=== PATIENT | female | born 1935 | race Caucasian/White ===

== ENCOUNTER 2016-09-22 17:05 | Inpatient (IN) | payer OTHER ==
[~2016-09-22] VITALS: Ht 170.2 cm; Wt 74.0 kg
[~2016-09-22 17:05] MED LIST: ACET-1256 PO; ATOR-22 PO; CALCTAB5 PO; CHOL100010 PO; CRG125 PO; CYAN100048 PO; DOCU-94 PO; GLC5 PO; LEVO150T9 PO; LISI-461 PO; MISCTAB78 PO; MULTTAB PO; NRN/300 PO; OMEG10007 PO
[2016-09-22] MEDS ORDERED: ONDANSETRON INJ 2 MG/ML 2 ML VIAL IV STA (17:33)
--- NOTE | 2016-09-22 17:39 | EMERGENCY ROOM VISIT NOTE ---
History Report prepared by Sima: Brandon Arias Under the Supervision of: Dr. Dillon Knox M.D. First contact with patient: 17:21 Chief Complaint: BACK PAIN Stated Complaint: BACK PAIN History of Present Illness The patient is an 81 year old female who presents to the Emergency Room with complaints of constant lower right back pain beginning just prior to arrival. She currently rates her discomfort as an 8/10 in severity. The patient associates back pain that radiates to her right leg with today's symptoms. She states she got out of the car today, and the sun was blinding which caused her to feel dizzy. The patient then went to sit down at a picnic table and hit her back off of the table, when she tried to sit down. She notes she has a history of a kyphoplasty performed by the [facility] office. The patient states she takes Aspirin Back and Body for her back pain regularly. Pt denies LOC, headache, fevers, chills, diaphoresis, visual changes, neck pain, chest pain, breathing difficulties, nausea, vomiting, abdominal pain, melena, hematochezia, urinary symptoms, numbness, weakness, lymphadenopathy, rash, or other complaints. Source of History: patient Onset: just prior to arrival Position: back (lower) Symptom Intensity: 8/10 Timing: constant Associated Symptoms: + back pain Note: Associated symptoms: back pain that radiates to right leg. Review of Systems See HPI for pertinent positives and negatives. A total of ten systems were reviewed and were otherwise negative. Past Medical & Surgical Medical Problems: (1) Degenerative lumbar spinal stenosis (2) Diabetes (3) Diverticulitis (4) GERD (gastroesophageal reflux disease) (5) Heart disease (6) Hypertension Surgical Problems: (1) History of cholecystectomy (2) History of hysterectomy (3) S/P kyphoplasty Family History FHx: diabetes Social History Smoking Status: Never Smoker Alcohol Use: none Drug Use: none Marital Status: Housing Status: lives with family Occupation Status: retired Current/Historical Medications Scheduled Atorvastatin (Lipitor), 20 MG PO QPM Calcium (Caltrate), 600 MG PO DAILY Carvedilol (Carvedilol), 12.5 MG PO BID Cholecalciferol (Vitamin D), 2,000 INTER.UNIT PO DAILY Cyanocobalamin (Vitamin B-12), 1,000 MCG PO QAM Docusate Sodium (Colace), 1 CAP PO BID Gabapentin (Neurontin), 600 MG PO QAM Glipizide (Glipizide), 5 MG PO QAM Levothyroxine Sodium (Levothyroxine Sodium), 150 MCG PO QAM Lisinopril (Lisinopril), 10 MG PO QD Misc Natural Products (Osteo Bi-Flex Advanced Do), 1 TAB PO QAM Multivitamins/Minerals (Mvi With Minerals), 1 TAB PO QAM [eye pills], 1 TAB PO DAILY Scheduled PRN Acetaminophen (Tylenol), 1,000 MG PO TID PRN for Pain Allergies Coded Allergies: Celecoxib (Verified Allergy, Severe, SX OF STROKE, FACIAL NUMBNESS, UNABLE TO SPEAK, 09/22/16) Tolerates aleve and aspirin Metronidazole (Verified Adverse Reaction, Mild, N/V, 09/22/16) Ciprofloxacin (Verified Adverse Reaction, Unknown, UPSET STOMACH, 09/22/16) Physical Exam Vital Signs Date Time Temp Pulse Resp B/P Pulse Ox O2 Delivery O2 Flow Rate FiO2 09/22/16 22:05 69 96 09/22/16 22:00 68 96 09/22/16 21:59 138/71 09/22/16 21:55 69 96 09/22/16 21:50 68 96 09/22/16 21:45 69 95 09/22/16 21:40 70 96 09/22/16 21:35 72 96 09/22/16 21:30 71 95 09/22/16 21:28 144/88 09/22/16 21:25 71 95 09/22/16 21:20 73 96 09/22/16 21:15 147/80 09/22/16 21:05 73 93 09/22/16 20:35 71 95 09/22/16 20:24 73 09/22/16 19:59 149/82 09/22/16 19:36 84 104/58 93 Nasal Cannula 3.0 09/22/16 17:09 37.0 70 18 144/73 97 Room Air Physical Exam GENERAL: Awake, alert, very uncomfortable-appearing. HENT: Normocephalic, atraumatic. Oropharynx unremarkable. EYES: Normal conjunctiva. Sclera non-icteric. NECK: Supple. No nuchal rigidity. FROM. No JVD. RESPIRATORY: Clear to auscultation. CARDIAC: Regular rate, normal rhythm. Extremities warm and well perfused. Pulses equal. ABDOMEN: Soft, non-distended. No tenderness to palpation. No rebound or guarding. No masses. RECTAL: Deferred. MUSCULOSKELETAL: Chest examination reveals no tenderness. Lumbar midline tenderness. Right paraspinal tenderness. Some right low posterior rib tenderness. No joint edema. LOWER EXTREMITIES: Calves are equal size bilaterally and non-tender. No edema. No discoloration. NEURO: Normal sensorium. No sensory or motor deficits noted. SKIN: No rash or jaundice noted. Medical Decision & Procedures ER Provider Diagnostic Interpretation: CT: Radiology results as stated below per my review and radiologist interpretation CT SCAN OF THE LUMBAR SPINE WITHOUT IV CONTRAST CLINICAL HISTORY: Fall with back pain. COMPARISON STUDY: CT scan of lumbar spine dated 06/27/2015. TECHNIQUE: CT scan of the lumbar spine is performed from the lower thoracic spine to the sacrum. Images are reviewed in the axial, sagittal, and coronal planes. IV contrast was not administered for this examination. CT DOSE: 663.99 mGy.cm FINDINGS: The skeletal structures are osteopenic. Vertebral body height is maintained throughout the lumbar spine. There is minimal retrolisthesis of L2-L3 and L3-L4. Alignment is otherwise preserved. There is mild lumbar dextrocurvature centered at L3. Anterior and marginal osteophytes are present throughout. There is a nondistracted right transverse process fracture of L1. There is a tiny fracture from the tip of the right transverse process at L2. The remaining transverse processes and the spinous processes appear intact. Advanced facet arthropathy is noted in the lower lumbar region. There is no spondylolysis. There is a mild chronic compression deformity of T12 with evidence of previous vertebroplasty. No lytic or blastic lesions is seen. There is advanced degenerative disc space narrowing at L2-L3, L3-L4, and L4-L5. Endplate sclerosis is noted at these levels. There is likely acquired compromise the central canal from L1-L2 through L4-L5. The visualized sacrum and bony pelvis appear intact. Postoperative changes from a left hip arthroplasty are partially imaged. There is fatty atrophy of the paraspinous musculature. Advanced atherosclerotic calcification is noted in the abdominal aorta. There is no retroperitoneal lymphadenopathy. Colonic diverticulosis is partially imaged. There is a trace right pleural effusion. IMPRESSION: 1. There are acute nondistracted right transverse process fractures of L1 and L2. 2. No additional fracture is seen involving the lumbar spine. Vertebral body height is preserved. 3. Osteopenia with advanced lumbosacral spondylosis and mild scoliosis as above. 4. There is a chronic compression deformity of T12 with evidence of previous vertebroplasty. 5. Additional changes as above. Electronically signed by: Michael Scherer M.D. 09/22/2016 7:25 PM Laboratory Results 09/22/16 17:30 Red Blood Count 4.55, Mean Corpuscular Volume 96.9, Mean Corpuscular Hemoglobin 32.5, Mean Corpuscular Hemoglobin Concent 33.6, Mean Platelet Volume 10.5, Neutrophils (%) (Auto) 69.9, Lymphocytes (%) (Auto) 18.0, Monocytes (%) (Auto) 9.4, Eosinophils (%) (Auto) 2.3, Basophils (%) (Auto) 0.2, Neutrophils # (Auto) 6.74, Lymphocytes # (Auto) 1.74, Monocytes # (Auto) 0.91, Eosinophils # (Auto) 0.22, Basophils # (Auto) 0.02 09/22/16 17:30 Test 09/22/16 17:30 09/22/16 20:05 White Blood Count 9.65 K/uL (4.8-10.8) Red Blood Count 4.55 M/uL (4.2-5.4) Hemoglobin 14.8 g/dL (12.0-16.0) Hematocrit 44.1 % (37-47) Mean Corpuscular Volume 96.9 fL (80-100) Mean Corpuscular Hemoglobin 32.5 pg (25-34) Mean Corpuscular Hemoglobin Concent 33.6 g/dl (32-36) Platelet Count 191 K/uL (130-400) Mean Platelet Volume 10.5 fL (7.4-10.4) Neutrophils (%) (Auto) 69.9 % Lymphocytes (%) (Auto) 18.0 % Monocytes (%) (Auto) 9.4 % Eosinophils (%) (Auto) 2.3 % Basophils (%) (Auto) 0.2 % Neutrophils # (Auto) 6.74 K/uL (1.4-6.5) Lymphocytes # (Auto) 1.74 K/uL (1.2-3.4) Monocytes # (Auto) 0.91 K/uL (0.11-0.59) Eosinophils # (Auto) 0.22 K/uL (0-0.5) Basophils # (Auto) 0.02 K/uL (0-0.2) RDW Standard Deviation 46.7 fL (36.4-46.3) RDW Coefficient of Variation 13.2 % (11.5-14.5) Immature Granulocyte % (Auto) 0.2 % Immature Granulocyte # (Auto) 0.02 K/uL (0.00-0.02) Anion Gap 10.0 mmol/L (3-11) Est Creatinine Clear Calc Drug Dose 34.5 ml/min Estimated GFR () 43.9 Estimated GFR (Non- 37.9 BUN/Creatinine Ratio 12.9 (10-20) Calcium Level 9.5 mg/dl (8.5-10.1) Total Bilirubin 0.7 mg/dl (0.2-1) Direct Bilirubin 0.2 mg/dl (0-0.2) Aspartate Amino Transf (AST/SGOT) 28 U/L (15-37) Alanine Aminotransferase (ALT/SGPT) 22 U/L (12-78) Alkaline Phosphatase 89 U/L (45-117) Total Protein 7.6 gm/dl (6.4-8.2) Albumin 3.7 gm/dl (3.4-5.0) Lipase 496 U/L (73-393) Urine Color DK YELLOW Urine Appearance CLEAR (CLEAR) Urine pH 5.5 (4.5-7.5) Urine Specific Gully 1.017 (1.000-1.030) Urine Protein NEG (NEG) Urine Glucose (UA) NEG (NEG) Urine Ketones NEG (NEG) Urine Occult Blood NEG (NEG) Urine Nitrite NEG (NEG) Urine Bilirubin NEG (NEG) Urine Urobilinogen NEG (NEG) Urine Leukocyte Esterase NEG (NEG) Laboratory results reviewed by me Medications Administered Medications (Trade) Dose Ordered Sig/Ailin Route Start Time Stop Time Status Last Admin Dose Admin Ondansetron HCl (Zofran Inj) 4 mg NOW STAT IV 09/22/16 17:33 09/22/16 17:34 DC 09/22/16 17:44 4 MG Hydromorphone HCl (Dilaudid Inj) 0.5 mg Q15M PRN IV 09/22/16 17:45 10/06/16 17:44 09/22/16 21:18 0.5 MG ED Course 1727: The patient was evaluated in room A11B. A complete history and physical exam was performed. 1732: Ordered Zofran inj 4 mg IV. 1744: Ordered Dilaudid Inj 0.5 mg IV. 1849: Reevaluated the patient at this time, and she is doing well. 2054: Reevaluated the patient at this time and updated her on the results. 2107: Reevaluated the patient at this time, and she is still in a lot of pain. 2146: I spoke to JOLENE Grullon (Hospitalist) about the patient's case, and he will follow the patient for further evaluation. Medical Decision Triage Nursing notes reviewed. The patient's presentation and history were concerning for back pain after a direct injury. Etiologies such as fracture, contusion, lumbago, sciatica, cauda equina, epidural abscess, osteomyelitis, aortic disease, metastatic disease, infection, renal colic, gastrointestinal, as well as others were entertained. The patient was evaluated. She was tender. She is given IV Dilaudid. She was sent for imaging. CBC, urinalysis, chemistry panel, LFTs and lipase were normal. Imaging reveals acute fractures of the transverse process on the right side of L1 and L2. The patient did require additional IV Dilaudid. She was having difficulty moving secondary to pain. Because of this further evaluation and management in the hospital felt to be appropriate. Consultation was made with internal medicine. The patient was evaluated in the Emergency Room for further treatment. The chart was completed utilizing [employer] Speech voice recognition software. Grammatical errors, random word insertions, pronoun errors, and incomplete sentences are an occasional consequence of this system due to software limitations, ambient noise, and hardware issues. Any formal questions or concerns about the content, text, or information contained within the body of this dictation should be directly addressed to the physician for clarification. Consults Time Called: 2112 Consulting Physician: JOLENE Grullon (Hospitalist) Returned Call: 2146 I spoke to JOLENE Grullon (Hospitalist) about the patient's case, and he will follow the patient for further evaluation. Impression Primary Impression: Multiple transverse process fractures Scribe Attestation The scribe's documentation has been prepared under my direction and personally reviewed by me in its entirety. I confirm that the note above accurately reflects all work, treatment, procedures, and medical decision making performed by me. Departure Information Dispostion Being Evaluated By Hospitalist (Dr. Hughes, [facility] [place] (Hospitalist)) Referrals Adriano Castellanos M.D. (PCP)
[2016-09-22] MEDS: HYDROmorphone INJ 0.5 MG/0.5 ML SYR IV PRN ×2 (17:44→21:18)
[2016-09-22 17:46] LABS: BASO % 0.2 %; BASO ABS # 0.02 K/uL (0-0.2); COMPLETE YES; EOS % 2.3 %; HEMATOCRIT 44.1 % (37-47); IG% 0.2 %; LYMPH ABS # 1.74 K/uL (1.2-3.4); MEAN CELL VOLUME 96.9 fL (80-100); MEAN CORPUSCULAR HEMOGLOBIN 32.5 pg (25-34); MEAN CORPUSCULAR HGB CONC 33.6 g/dl (32-36); MEAN PLATELET VOLUME 10.5 fL (7.4-10.4); MONO % 9.4 %; NEUT % 69.9 %; PLATELET COUNT 191 K/uL (130-400); RED BLOOD COUNT 4.55 M/uL (4.2-5.4); WHITE BLOOD COUNT 9.65 K/uL (4.8-10.8)
[2016-09-22 18:05] LABS: BUN/CREATININE RATIO 12.9 (10-20); CALCIUM 9.5 mg/dl (8.5-10.1); CREATININE 1.3 mg/dl (0.60-1.20); POTASSIUM 4.1 mmol/L (3.5-5.1)
--- NOTE | 2016-09-22 19:27 | DIAGNOSTIC IMAGING REPORT ---
CT SCAN OF THE LUMBAR SPINE WITHOUT IV CONTRAST CLINICAL HISTORY: Fall with back pain. COMPARISON STUDY: CT scan of lumbar spine dated 06/27/2015. TECHNIQUE: CT scan of the lumbar spine is performed from the lower thoracic spine to the sacrum. Images are reviewed in the axial, sagittal, and coronal planes. IV contrast was not administered for this examination. CT DOSE: 663.99 mGy.cm FINDINGS: The skeletal structures are osteopenic. Vertebral body height is maintained throughout the lumbar spine. There is minimal retrolisthesis of L2-L3 and L3-L4. Alignment is otherwise preserved. There is mild lumbar dextrocurvature centered at L3. Anterior and marginal osteophytes are present throughout. There is a nondistracted right transverse process fracture of L1. There is a tiny fracture from the tip of the right transverse process at L2. The remaining transverse processes and the spinous processes appear intact. Advanced facet arthropathy is noted in the lower lumbar region. There is no spondylolysis. There is a mild chronic compression deformity of T12 with evidence of previous vertebroplasty. No lytic or blastic lesions is seen. There is advanced degenerative disc space narrowing at L2-L3, L3-L4, and L4-L5. Endplate sclerosis is noted at these levels. There is likely acquired compromise the central canal from L1-L2 through L4-L5. The visualized sacrum and bony pelvis appear intact. Postoperative changes from a left hip arthroplasty are partially imaged. There is fatty atrophy of the paraspinous musculature. Advanced atherosclerotic calcification is noted in the abdominal aorta. There is no retroperitoneal lymphadenopathy. Colonic diverticulosis is partially imaged. There is a trace right pleural effusion. IMPRESSION: 1. There are acute nondistracted right transverse process fractures of L1 and L2. 2. No additional fracture is seen involving the lumbar spine. Vertebral body height is preserved. 3. Osteopenia with advanced lumbosacral spondylosis and mild scoliosis as above. 4. There is a chronic compression deformity of T12 with evidence of previous vertebroplasty. 5. Additional changes as above. Electronically signed by: Michael Scherer M.D. 09/22/2016 7:25 PM
[2016-09-22] MEDS ORDERED: [UNRECOGNIZED DRUG - REMARK] PO (19:30)
[2016-09-22 20:26] LABS: URINE APPEARANCE CLEAR (CLEAR); URINE BILIRUBIN NEG (NEG); URINE COLOR DK YELLOW; URINE NITRITE NEG (NEG); URINE PH 5.5 (4.5-7.5); URINE SPECIFIC GRAVITY 1.017 (1.000-1.030); UROBILINOGEN NEG (NEG); ZZUR CULT IF INDIC CLEAN CATCH NO
[2016-09-22 20:27] LABS: MANUAL MICROSCOPIC REQUIRED? NO; REVIEW REQ? NO
[2016-09-22 22:50] VITALS: BP 146/81; PULSE 75; TEMP 36.5; O2SAT 95
[2016-09-22] MEDS ORDERED: ACETAMINOPHEN 500 MG TAB PO PRN (23:15)
[2016-09-22] MEDS ORDERED: ACETAMINOPHEN 325 MG TAB PO PRN (23:15)
[2016-09-22] MEDS ORDERED: ZOLPIDEM TARTRATE 5 MG TAB PO PRN (23:15)
[2016-09-22] MEDS ORDERED: ONDANSETRON INJ 2 MG/ML 2 ML VIAL IV PRN (23:15)
[2016-09-22 23:50] VITALS: Ht 170.2 cm; Wt 74.0 kg
[2016-09-23] MEDS: DEXAMETHASONE INJ 4 MG in SYRINGE 0 ML IV SCH ×5 (00:06→23:42)
[2016-09-23] MEDS: HYDROmorphone INJ 1 MG/ML SYR IV PRN ×5 (00:06→23:43)
--- NOTE | 2016-09-23 03:34 | History and Physical ---
History & Physical Date & Time of Service: Sep 23, 2016 at 03:21 Chief Complaint: Degenerative Lumbar Spinal Stenosis,Multiple Trans Primary Care Physician: Adriano Castellanos M.D. History of Present Illness Source: patient, spouse The patient is an 81-year-old female accompanied by her spouse, who presents emergency department with complaint of right lower back pain that began when she hit her lower back as she was attempting to sit down near a table prior to arrival. Past Medical/Surgical History Medical Problems: (1) Diabetes Status: Chronic (2) Diverticulitis Status: Chronic (3) GERD (gastroesophageal reflux disease) Status: Chronic (4) Heart disease Status: Chronic (5) Hypertension Status: Chronic Surgical Problems: (1) History of cholecystectomy Status: Resolved (2) History of hysterectomy Status: Resolved (3) S/P kyphoplasty Status: Resolved Family History FHx: diabetes Social History Smoking Status: Never Smoker Smokeless Tobacco Use: No Alcohol Use: none Drug Use: none Marital Status: Housing status: lives with family Occupational Status: retired Immunizations History of Influenza Vaccine: Yes Influenza Vaccine Date: Jun 28, 2007 History of Tetanus Vaccine?: Unknown History of Pneumococcal: Yes Pneumococcal Date: Aug 04, 2007 History of Hepatitis B Vaccine: Unknown Multi-Drug Resistant Organisms History of MDRO: No Allergies Coded Allergies: Celecoxib (Verified Allergy, Severe, SX OF STROKE, FACIAL NUMBNESS, UNABLE TO SPEAK, 09/22/16) Tolerates aleve and aspirin Metronidazole (Verified Adverse Reaction, Mild, N/V, 09/22/16) Ciprofloxacin (Verified Adverse Reaction, Unknown, UPSET STOMACH, 09/22/16) Home Medications Scheduled Atorvastatin (Lipitor), 20 MG PO QPM Calcium (Caltrate), 600 MG PO DAILY Carvedilol (Carvedilol), 12.5 MG PO BID Cholecalciferol (Vitamin D), 2,000 INTER.UNIT PO DAILY Cyanocobalamin (Vitamin B-12), 1,000 MCG PO QAM Docusate Sodium (Colace), 1 CAP PO BID Gabapentin (Neurontin), 600 MG PO QAM Glipizide (Glipizide), 5 MG PO QAM Levothyroxine Sodium (Levothyroxine Sodium), 150 MCG PO QAM Lisinopril (Lisinopril), 10 MG PO QD Misc Natural Products (Osteo Bi-Flex Advanced Do), 1 TAB PO QAM Multivitamins/Minerals (Mvi With Minerals), 1 TAB PO QAM [eye pills], 1 TAB PO DAILY Scheduled PRN Acetaminophen (Tylenol), 1,000 MG PO TID PRN for Pain Review of Systems The patient denies chest pain, palpitations, shortness of breath, cough, lower extremity swelling, vision change, hearing change, sore throat, fevers, chills, sweats, weight change, fatigue, nausea, vomiting, abdominal pain, pelvic pain, blood in urine or stool, dysuria, urinary frequency or urgency, lightheadedness , dizziness, headache, memory loss, rash, abnormal bruising or bleeding, imbalance, focal or generalized weakness, numbness or tingling in arms or legs, arthralgias or myalgias, neck pain, night sweats, or allergy symptoms. The review of systems is otherwise negative other than for that already noted above, and at least 10 systems have been reviewed. Physical Exam Vital Signs Date Time Temp Pulse Resp B/P Pulse Ox O2 Delivery O2 Flow Rate FiO2 09/22/16 23:50 Room Air 09/22/16 22:50 36.5 75 18 146/81 95 Room Air 09/22/16 22:35 37.0 76 18 138/71 95 09/22/16 22:20 76 95 09/22/16 22:15 73 95 09/22/16 22:10 70 96 09/22/16 22:05 69 96 09/22/16 22:00 68 96 09/22/16 21:59 138/71 09/22/16 21:55 69 96 09/22/16 21:50 68 96 09/22/16 21:45 69 95 09/22/16 21:40 70 96 09/22/16 21:35 72 96 09/22/16 21:30 71 95 09/22/16 21:28 144/88 09/22/16 21:25 71 95 09/22/16 21:20 73 96 09/22/16 21:15 147/80 09/22/16 21:05 73 93 09/22/16 20:35 71 95 09/22/16 20:24 73 09/22/16 19:59 149/82 09/22/16 19:36 84 104/58 93 Nasal Cannula 3.0 09/22/16 17:09 37.0 70 18 144/73 97 Room Air The patient is awake, well-developed and adequately nourished, alert and oriented 3, normocephalic and atraumatic, lying in bed and in no acute distress while lying still. HEENT--PERRL, EOMI, mucous membranes moist, and oropharynx normal. Neck--supple, no JVD or bruits, thyroid normal, trachea midline, no adenopathy. Heart--normal S1 and S2, no extra beats, no murmurs, rubs or gallops. Lungs--clear bilaterally with good air movement, no respiratory distress, no accessory muscle use. Abdomen--normal bowel sounds and soft, nontender and nondistended, no hernias or masses, no organomegaly. Extremities--no cyanosis, clubbing or edema. There are good distal pulses b/l. Dermatologic--normal skin turgor, normal color, warm and dry, no abnormal lymph nodes, no rash. Neurologic--cranial nerves II through XII grossly intact. Rheumatologic--reproducible pain over L1-L2 lumbar areas. Psychiatric--normal affect. Diagnostics Laboratory Results Results Past 24 Hours Test 09/22/16 17:30 09/22/16 20:05 Range/Units White Blood Count 9.65 4.8-10.8 K/uL Red Blood Count 4.55 4.2-5.4 M/uL Hemoglobin 14.8 12.0-16.0 g/dL Hematocrit 44.1 37-47 % Mean Corpuscular Volume 96.9 80-100 fL Mean Corpuscular Hemoglobin 32.5 25-34 pg Mean Corpuscular Hemoglobin Concent 33.6 32-36 g/dl Platelet Count 191 130-400 K/uL Mean Platelet Volume 10.5 7.4-10.4 fL Neutrophils (%) (Auto) 69.9 % Lymphocytes (%) (Auto) 18.0 % Monocytes (%) (Auto) 9.4 % Eosinophils (%) (Auto) 2.3 % Basophils (%) (Auto) 0.2 % Neutrophils # (Auto) 6.74 1.4-6.5 K/uL Lymphocytes # (Auto) 1.74 1.2-3.4 K/uL Monocytes # (Auto) 0.91 0.11-0.59 K/uL Eosinophils # (Auto) 0.22 0-0.5 K/uL Basophils # (Auto) 0.02 0-0.2 K/uL RDW Standard Deviation 46.7 36.4-46.3 fL RDW Coefficient of Variation 13.2 11.5-14.5 % Immature Granulocyte % (Auto) 0.2 % Immature Granulocyte # (Auto) 0.02 0.00-0.02 K/uL Sodium Level 145 136-145 mmol/L Potassium Level 4.1 3.5-5.1 mmol/L Chloride Level 106 98-107 mmol/L Carbon Dioxide Level 29 21-32 mmol/L Anion Gap 10.0 3-11 mmol/L Blood Urea Nitrogen 17 7-18 mg/dl Creatinine 1.30 0.60-1.20 mg/dl Est Creatinine Clear Calc Drug Dose 34.5 ml/min Estimated GFR () 43.9 Estimated GFR (Non- 37.9 BUN/Creatinine Ratio 12.9 10-20 Random Glucose 80 70-99 mg/dl Calcium Level 9.5 8.5-10.1 mg/dl Total Bilirubin 0.7 0.2-1 mg/dl Direct Bilirubin 0.2 0-0.2 mg/dl Aspartate Amino Transf (AST/SGOT) 28 15-37 U/L Alanine Aminotransferase (ALT/SGPT) 22 12-78 U/L Alkaline Phosphatase 89 45-117 U/L Total Protein 7.6 6.4-8.2 gm/dl Albumin 3.7 3.4-5.0 gm/dl Lipase 496 73-393 U/L Urine Color DK YELLOW Urine Appearance CLEAR CLEAR Urine pH 5.5 4.5-7.5 Urine Specific David 1.017 1.000-1.030 Urine Protein NEG NEG Urine Glucose (UA) NEG NEG Urine Ketones NEG NEG Urine Occult Blood NEG NEG Urine Nitrite NEG NEG Urine Bilirubin NEG NEG Urine Urobilinogen NEG NEG Urine Leukocyte Esterase NEG NEG Diagnostic Radiology Patient Name: OLE PATTON Unit Number: [id number] Dictated: 09/22/161917 Transcribed: 09/22/161917 EV Printed Date/Time: [~ rep prt dt]/[~ rep prt tm] [~ rep ct labl] - [~ rep ct ivnm] [facility] [place] [address] Dictated: 09/22/161917 Transcribed: 09/22/161917 EV Printed Date/Time: [~ rep prt dt]/[~ rep prt tm] [~ rep ct labl] - [~ rep ct ivnm] [~ rep ct add3]] CT SCAN OF THE LUMBAR SPINE WITHOUT IV CONTRAST CLINICAL HISTORY: Fall with back pain. COMPARISON STUDY: CT scan of lumbar spine dated 06/27/2015. TECHNIQUE: CT scan of the lumbar spine is performed from the lower thoracic spine to the sacrum. Images are reviewed in the axial, sagittal, and coronal planes. IV contrast was not administered for this examination. CT DOSE: 663.99 mGy.cm FINDINGS: The skeletal structures are osteopenic. Vertebral body height is maintained throughout the lumbar spine. There is minimal retrolisthesis of L2-L3 and L3-L4. Alignment is otherwise preserved. There is mild lumbar dextrocurvature centered at L3. Anterior and marginal osteophytes are present throughout. There is a nondistracted right transverse process fracture of L1. There is a tiny fracture from the tip of the right transverse process at L2. The remaining transverse processes and the spinous processes appear intact. Advanced facet arthropathy is noted in the lower lumbar region. There is no spondylolysis. There is a mild chronic compression deformity of T12 with evidence of previous vertebroplasty. No lytic or blastic lesions is seen. There is advanced degenerative disc space narrowing at L2-L3, L3-L4, and L4-L5. Endplate sclerosis is noted at these levels. There is likely acquired compromise the central canal from L1-L2 through L4-L5. The visualized sacrum and bony pelvis appear intact. Postoperative changes from a left hip arthroplasty are partially imaged. There is fatty atrophy of the paraspinous musculature. Advanced atherosclerotic calcification is noted in the abdominal aorta. There is no retroperitoneal lymphadenopathy. Colonic diverticulosis is partially imaged. There is a trace right pleural effusion. IMPRESSION: 1. There are acute nondistracted right transverse process fractures of L1 and L2. 2. No additional fracture is seen involving the lumbar spine. Vertebral body height is preserved. 3. Osteopenia with advanced lumbosacral spondylosis and mild scoliosis as above. 4. There is a chronic compression deformity of T12 with evidence of previous vertebroplasty. 5. Additional changes as above. Electronically signed by: Michael Scherer M.D. 09/22/2016 7:25 PM The status of this report is Signed. Draft = Not yet reviewed or approved by Radiologist. Signed = Reviewed and approved by Radiologist. <AttendingPhy></AttendingPhy> <FamilyPhy>Adriano Castellanos M.D.</FamilyPhy > <PrimaryPhy>Adrinao Castellanos M.D.</PrimaryPhy> <UnitNumber>[id number]</ UnitNumber> <VisitNumber>[id number]</VisitNumber> <PatientName>OLE PATTON</ PatientName> <DateOfBirth>1935</DateOfBirth> <Location>[facility]</Location> < ServiceDate>09/22/16</ServiceDate> <MNE>ESINDI</MNE> <OrderingPhy>Dillon Knox MD</OrderingPhy> <OrderingPhyMNE>f rep ord dr perrin</OrderingPhyMNE> < DictatingPhyMNE>f rep dict dr perrin</DictatingPhyMNE> <CCListMNE>f rep ct [place]</ CCListMNE> <AdmittingPhyMNE>f pt admit dr perrin</AdmittingPhyMNE> <AttendingPhyMNE >f pt attend dr perrin</AttendingPhyMNE> <ConsultingPhyMNE>f pt consult dr perrin</ConsultingPhyMNE> <FamilyPhyMNE>f pt fam dr perrin</FamilyPhyMNE> <OtherPhyMNE>f pt other dr perrin</OtherPhyMNE> < PrimaryPhyMNE>f pt prim care dr perrin</PrimaryPhyMNE> <ReferringPhyMNE>f pt referring dr perrin</ReferringPhyMNE> Impression Assessment and Plan L1 and L2 acute right side transverse process fractures/status post T12 vertebral plasty/multilevel lumbar facet arthropathy/multilevel lumbar spinal stenosis--the patient's pain today is likely due to the acute L1-L2 compression fractures. She'll be admitted to the medical surgical floor for pain management. She'll be started on Decadron 4 mg IV every 6 hours, and will continue the Dilaudid IV which successfully controlled her pain in the emergency department. We'll consult her orthopedic spine surgeon Dr. Moore. She does report that she's had some issues with decreased ability to control her bowels, and will therefore get Dr. Moore's opinion as to whether the spinal stenosis is the cause of these symptoms. Coronary artery disease/hypertension--continue carvedilol 12.5 mg by mouth twice a day, and lisinopril 10 mg by mouth daily. Diabetes mellitus--hold her glipizide 5 mg by mouth every morning, and place on Accu-Cheks before meals and at bedtime with NovoLog coverage. Hypercholesterolemia--continue atorvastatin 20 mg by mouth every afternoon. Hypothyroidism-- continue levothyroxine sodium at 150 g by mouth every morning. Peripheral neuropathy--continue gabapentin 600 mg by mouth every morning. Vitamin B12 deficiency--continue B12 supplement at 1000 g by mouth every morning. Level of Care Med/Surg Advanced Directives Existing Advance Directive: No Existing Living Will: No Existing Power of Remote Sensing Analyst: No Resuscitation Status FULL RESUSCITATION VTE Prophylaxis VTE Risk Assessment Done? Y/N: Yes Risk Level: High Given or contraindicated: SCD's
[2016-09-23] MEDS: LEVOTHYROXINE 150 MCG TAB PO SCH (05:08)
[2016-09-23 06:36] LABS: BASO % 0.1 %; BASO ABS # 0.01 K/uL (0-0.2); COMPLETE YES; EOS % 0.1 %; HEMATOCRIT 46.5 % (37-47); IG% 0.1 %; LYMPH % 11.7 %; LYMPH ABS # 0.85 K/uL (1.2-3.4); MEAN CELL VOLUME 98.5 fL (80-100); MEAN CORPUSCULAR HEMOGLOBIN 32.2 pg (25-34); MEAN CORPUSCULAR HGB CONC 32.7 g/dl (32-36); MEAN PLATELET VOLUME 10.9 fL (7.4-10.4); MONO % 1.2 %; NEUT % 86.8 %; PLATELET COUNT 182 K/uL (130-400); RED BLOOD COUNT 4.72 M/uL (4.2-5.4); WHITE BLOOD COUNT 7.29 K/uL (4.8-10.8)
[2016-09-23 07:05] LABS: BUN/CREATININE RATIO 13.4 (10-20); CALCIUM 9.1 mg/dl (8.5-10.1); CREATININE 1.3 mg/dl (0.60-1.20); MAGNESIUM 2.3 mg/dl (1.8-2.4); POTASSIUM 4.3 mmol/L (3.5-5.1)
[2016-09-23 07:16] VITALS: BP 109/68; PULSE 66; TEMP 36.6; O2SAT 90
[2016-09-23 07:40] VITALS: O2SAT 93
[2016-09-23] MEDS: CEROVITE ADV FORMULA TAB PO SCH (08:43)
[2016-09-23] MEDS: CHOLECALCIFEROL 1000 INTER.UNIT TAB PO SCH (08:43)
[2016-09-23] MEDS: CYANOCOBALAMIN 500 MCG TAB (VIT B-12) PO SCH (08:43)
[2016-09-23] MEDS: DOCUSATE SODIUM 100 MG CAP PO SCH ×2 (08:43→21:10)
[2016-09-23] MEDS: GABAPENTIN 300 MG CAP PO SCH (08:43)
[2016-09-23] MEDS: CARVEDILOL 12.5 MG TAB PO SCH ×2 (08:44→21:11)
[2016-09-23] MEDS: CALCIUM 600MG + VIT D 400 IU TAB PO SCH ×2 (08:44→21:11)
--- NOTE | 2016-09-23 11:59 | Hospitalist Progress Note ---
Hospitalist Progress Note Date of Service Sep 23, 2016. Subjective Pt evaluation today including: conversation w/ patient, physical exam, chart review, lab review, review of studies, review of inpatient medication list Pain: 9/10 sharp back pain PO Intake: Tolerating PO diet Voiding: incontinence (urge urinary incontinence, fecal incontinence) The patient complains of 9/10 sharp pain located over her lumbar spine and to the right paraspinal area. She states that the pain occasionally radiates down and around to her right hip. The patient has a history of urinary urge incontinence and fecal incontinence for which she constantly wears Depends. She has chronic numbness/tingling in her feet bilaterally due to her diabetes. She denies any new numbness/tingling in her legs since injuring her back. The patient complains of hoarseness in her voice that she states started when she was in the ER, where her room was very dry. She denies a sore throat. The patient denies fevers, chills, sweats, chest pain, palpitations, claudication, cough, wheezing, shortness of breath, nausea, vomiting, abdominal pain, dysuria , hematuria, urinary retention, paralysis, weakness, new numbness and tingling. Additional Comments: See HPI for pertinent positives and negatives. All other systems reviewed and negative. Objective Vital Signs Date Time Temp Pulse Resp B/P Pulse Ox O2 Delivery O2 Flow Rate FiO2 09/23/16 07:40 93 Room Air 09/23/16 07:16 36.6 66 18 109/68 90 Nasal Cannula 2.0 09/22/16 23:50 Room Air 09/22/16 22:50 36.5 75 18 146/81 95 Room Air 09/22/16 22:35 37.0 76 18 138/71 95 09/22/16 22:20 76 95 09/22/16 22:15 73 95 09/22/16 22:10 70 96 09/22/16 22:05 69 96 09/22/16 22:00 68 96 09/22/16 21:59 138/71 09/22/16 21:55 69 96 09/22/16 21:50 68 96 09/22/16 21:45 69 95 09/22/16 21:40 70 96 09/22/16 21:35 72 96 09/22/16 21:30 71 95 09/22/16 21:28 144/88 09/22/16 21:25 71 95 09/22/16 21:20 73 96 09/22/16 21:15 147/80 09/22/16 21:05 73 93 09/22/16 20:35 71 95 09/22/16 20:24 73 09/22/16 19:59 149/82 09/22/16 19:36 84 104/58 93 Nasal Cannula 3.0 09/22/16 17:09 37.0 70 18 144/73 97 Room Air Physical Exam General Appearance: WD/WN, + mild distress (appears uncomfortable and in pain) Eyes: normal inspection, PERRL, EOMI ENT: normal ENT inspection, hearing grossly normal, pharynx normal Neck: supple, no JVD, trachea midline Respiratory/Chest: lungs clear, normal breath sounds, no respiratory distress Cardiovascular: regular rate, rhythm, no gallop, no murmur Abdomen: normal bowel sounds, soft, + tenderness (suprapubic area mildy TTP without guarding) Extremities: non-tender, normal inspection, no pedal edema Neurologic/Psychiatric: alert, normal mood/affect, oriented x 3 Skin: normal color, warm/dry, no rash Laboratory Results Last 24 Hours Test 09/22/16 17:30 09/22/16 20:05 09/23/16 06:15 White Blood Count 9.65 K/uL 7.29 K/uL Red Blood Count 4.55 M/uL 4.72 M/uL Hemoglobin 14.8 g/dL 15.2 g/dL Hematocrit 44.1 % 46.5 % Mean Corpuscular Volume 96.9 fL 98.5 fL Mean Corpuscular Hemoglobin 32.5 pg 32.2 pg Mean Corpuscular Hemoglobin Concent 33.6 g/dl 32.7 g/dl Platelet Count 191 K/uL 182 K/uL Mean Platelet Volume 10.5 fL 10.9 fL Neutrophils (%) (Auto) 69.9 % 86.8 % Lymphocytes (%) (Auto) 18.0 % 11.7 % Monocytes (%) (Auto) 9.4 % 1.2 % Eosinophils (%) (Auto) 2.3 % 0.1 % Basophils (%) (Auto) 0.2 % 0.1 % Neutrophils # (Auto) 6.74 K/uL 6.32 K/uL Lymphocytes # (Auto) 1.74 K/uL 0.85 K/uL Monocytes # (Auto) 0.91 K/uL 0.09 K/uL Eosinophils # (Auto) 0.22 K/uL 0.01 K/uL Basophils # (Auto) 0.02 K/uL 0.01 K/uL RDW Standard Deviation 46.7 fL 48.2 fL RDW Coefficient of Variation 13.2 % 13.3 % Immature Granulocyte % (Auto) 0.2 % 0.1 % Immature Granulocyte # (Auto) 0.02 K/uL 0.01 K/uL Sodium Level 145 mmol/L 140 mmol/L Potassium Level 4.1 mmol/L 4.3 mmol/L Chloride Level 106 mmol/L 104 mmol/L Carbon Dioxide Level 29 mmol/L 28 mmol/L Anion Gap 10.0 mmol/L 8.0 mmol/L Blood Urea Nitrogen 17 mg/dl 17 mg/dl Creatinine 1.30 mg/dl 1.30 mg/dl Est Creatinine Clear Calc Drug Dose 34.5 ml/min 34.5 ml/min Estimated GFR () 43.9 43.9 Estimated GFR (Non- 37.9 37.9 BUN/Creatinine Ratio 12.9 13.4 Random Glucose 80 mg/dl 163 mg/dl Calcium Level 9.5 mg/dl 9.1 mg/dl Total Bilirubin 0.7 mg/dl Direct Bilirubin 0.2 mg/dl Aspartate Amino Transf (AST/SGOT) 28 U/L Alanine Aminotransferase (ALT/SGPT) 22 U/L Alkaline Phosphatase 89 U/L Total Protein 7.6 gm/dl Albumin 3.7 gm/dl Lipase 496 U/L Urine Color DK YELLOW Urine Appearance CLEAR Urine pH 5.5 Urine Specific Terry 1.017 Urine Protein NEG Urine Glucose (UA) NEG Urine Ketones NEG Urine Occult Blood NEG Urine Nitrite NEG Urine Bilirubin NEG Urine Urobilinogen NEG Urine Leukocyte Esterase NEG Magnesium Level 2.3 mg/dl Assessment and Plan 81 y/o female with a history of HTN, DM II, HLD, hypothyroidism, peripheral neuropathy, and vitamin B12 deficiency who presents to the ED on 09/22/[address] of lumbar spine showed acute fractures of L1 and L2 at the transverse process as well as advanced lumbosacral spondylosis, mild scoliosis, and a chronic compression deformity of T12. Pt. hemodynamically stable upon arrival. -Admit to med/surg for pain management and possible surgical intervention. -Decadron 4 mg IV q6h -Dilaudid 1 mg IV q2h prn pain -Ortho spine consulted, awaiting evaluation HTN--stable -Continue carvedilol 12.5 mg PO BID and lisinopril 10 mg PO qd DM II--Last HgbA1c in inpatient records checked 08/23/15, was 6.0 -Hold glipizide -Insulin sliding scale -Check BSGs q ac and qhs -Recheck HgbA1c HLD -Continue atorvastatin 20 mg PO qd Hypothyroidism -Continue Synthroid 150 mcg PO qd Peripheral neuropathy -Continue gabapentin 600 mg PO qd Vitamin B12 deficiency -Continue B12 1000 mcg PO qd DVT prophylaxis -Hold chemical prophylaxis for possible surgical intervention -ALBA morales and Femi Code Status -Level I, FULL RESUSCITATION STATUS
[2016-09-23 12:27] LABS: ESTIMATED AVERAGE GLUCOSE 120 mg/dl; HA1C FLAG Normal (Normal)
[2016-09-23] MEDS ORDERED: NURSING VERBAL MED ORDER ONE (12:30)
[2016-09-23] MEDS ORDERED: COUGH DROP (SUGAR FREE) LOZ 24 LOZ/1 BOX PO PRN (12:45)
--- NOTE | 2016-09-23 13:26 | CONSULTATION REPORT ---
DATE OF CONSULTATION: 09/23/2016 CHIEF COMPLAINT: Right-sided lumbar back pain. HISTORY OF PRESENT ILLNESS: A very pleasant 81-year-old female that states yesterday she was on her porch and managed to straight her right thoracolumbar spine against the table. She came to the Emergency Room with significant back pain. CAT scan imaging does demonstrate evidence of transverse process fractures, nondisplaced L1-2 on the right. CAT scan also demonstrates severe multilevel spondylosis, spinal stenosis, and degenerative scoliosis. At this time, she states majority of pain is in the lumbar spine on the right. This is in the proximity of her fracture. She uses a walker and a cane for ambulation. She describes significant back pain with prolonged standing. She gets leg cramps only. I am unable to elicit a history of pure neurogenic claudication. PHYSICAL EXAMINATION: She is in chair, has reasonable strength to testing, tenderness to palpation of the lumbar musculature, sensory is symmetric and intact. ASSESSMENT: 1. The transverse process fractures of L1-2. 2. Spinal stenosis throughout the lumbar spine. PLAN: At this time, any surgical intervention regarding her spinal stenosis would be quite extensive in nature. She would prefer to continue with observation only. She has had epidural injections in the past, but states it provided very little long-term relief. Regarding her acute injury of the fractures, these would improve dramatically with I am sure a few weeks of light activity and rest. Regarding her brace, she is somewhat unclear unbraceable secondary to body habitus and this may just provide more pressure directly on the fracture and less comfort. At this time, I have encouraged her to undergo physical therapy as tolerated. Discharge home when comfortable.
[2016-09-23 15:23] VITALS: BP 99/63; PULSE 65; TEMP 36.4; O2SAT 95
[2016-09-23] MEDS ORDERED: GLUCOSE 10 TABS/TUBE PO PRN (16:15)
[2016-09-23] MEDS ORDERED: GLUCAGON FOR INJ 1 MG VIAL SQ PRN (16:15)
[2016-09-23] MEDS ORDERED: GLUCOSE 40% GEL 15 GM TUBE PO PRN (16:15)
[2016-09-23] MEDS ORDERED: DEXTROSE 50% 50 ML SYR IV PRN (16:15)
[2016-09-23] MEDS: INSULIN ASPART 100 UNITS/ML 3 ML PEN SC SCH ×2 (18:42→21:10)
[2016-09-23] MEDS: ATORVASTATIN 20 MG TAB PO SCH (21:11)
[2016-09-23 23:27] VITALS: BP 125/68; PULSE 70; TEMP 36.7; O2SAT 94
[2016-09-24] MEDS: DEXAMETHASONE INJ 4 MG in SYRINGE 0 ML IV SCH ×3 (05:41→18:22)
[2016-09-24] MEDS: LEVOTHYROXINE 150 MCG TAB PO SCH (05:41)
[2016-09-24 06:55] LABS: BASO % 0.1 %; BASO ABS # 0.01 K/uL (0-0.2); COMPLETE YES; HEMATOCRIT 39.3 % (37-47); IG% 0.3 %; LYMPH % 9.5 %; LYMPH ABS # 1.26 K/uL (1.2-3.4); MEAN CELL VOLUME 96.8 fL (80-100); MEAN CORPUSCULAR HGB CONC 34.1 g/dl (32-36); MEAN PLATELET VOLUME 10.7 fL (7.4-10.4); MONO % 4.7 %; NEUT % 85.4 %; PLATELET COUNT 188 K/uL (130-400); RED BLOOD COUNT 4.06 M/uL (4.2-5.4); WHITE BLOOD COUNT 13.22 K/uL (4.8-10.8)
[2016-09-24 07:22] VITALS: BP 131/73; PULSE 70; TEMP 36.8; O2SAT 95
[2016-09-24 07:33] LABS: CREATININE 1.7 mg/dl (0.60-1.20); MAGNESIUM 2.5 mg/dl (1.8-2.4); POTASSIUM 4.4 mmol/L (3.5-5.1)
[2016-09-24] MEDS: INSULIN ASPART 100 UNITS/ML 3 ML PEN SC SCH ×4 (09:40→20:45)
[2016-09-24] MEDS: CARVEDILOL 12.5 MG TAB PO SCH ×2 (09:41→20:42)
[2016-09-24] MEDS: GABAPENTIN 300 MG CAP PO SCH (09:41)
[2016-09-24] MEDS: CYANOCOBALAMIN 500 MCG TAB (VIT B-12) PO SCH (09:41)
[2016-09-24] MEDS: CEROVITE ADV FORMULA TAB PO SCH (09:41)
[2016-09-24] MEDS: DOCUSATE SODIUM 100 MG CAP PO SCH ×2 (09:41→20:41)
[2016-09-24] MEDS: CALCIUM 600MG + VIT D 400 IU TAB PO SCH ×2 (09:42→20:41)
[2016-09-24] MEDS: CHOLECALCIFEROL 1000 INTER.UNIT TAB PO SCH (09:42)
[2016-09-24] MEDS: HYDROmorphone INJ 1 MG/ML SYR IV PRN (12:49)
[2016-09-24 15:10] VITALS: BP 114/67; PULSE 71; TEMP 36.7; O2SAT 92
[2016-09-24 15:30] VITALS: O2SAT 92
[2016-09-24] MEDS ORDERED: FENTANYL 12 MCG/HR TDSY TD SCH (15:30)
--- NOTE | 2016-09-24 15:51 | Hospitalist Progress Note ---
Hospitalist Progress Note Date of Service Sep 24, 2016. Subjective Pt evaluation today including: conversation w/ patient, physical exam, chart review, lab review, review of inpatient medication list Pain: 10/10 sharp back pain PO Intake: Tolerating PO diet Voiding: incontinence The patient complains of a 10/10 sharp pain in her lower back and right paraspinal area that radiates to her right flank. The pain is aggravated by movement and pressure. The patient states that her urinary incontinence seems to be better here in the hospital than it is at home, and she has not had any bowel movements or fecal incontinence. She still complains of hoarseness, but states that it is improved from yesterday. She has developed a mild sore throat and is taking throat lozenges. The patient denies fevers, chills, sweats , chest pain, palpitations, claudication, cough, wheezing, shortness of breath, nausea, vomiting, abdominal pain, dysuria, hematuria, urinary retention, paralysis, weakness, new numbness and tingling. Additional Comments: See HPI for pertinent positives and negatives. All other systems reviewed and negative. Objective Vital Signs Date Time Temp Pulse Resp B/P Pulse Ox O2 Delivery O2 Flow Rate FiO2 09/24/16 15:10 36.7 71 16 114/67 92 Room Air 09/24/16 07:56 Nasal Cannula 2.0 09/24/16 07:22 36.8 70 16 131/73 95 Room Air 09/23/16 23:35 Room Air 09/23/16 23:27 36.7 70 16 125/68 94 Nasal Cannula 2.0 Physical Exam General Appearance: WD/WN, + mild distress (appears uncomfortable, looks better when distracted with conversation) Eyes: normal inspection, PERRL, EOMI ENT: normal ENT inspection, hearing grossly normal, pharynx normal, + muffled/ hoarse voice (hoarse) Neck: supple, no JVD, trachea midline Respiratory/Chest: lungs clear, normal breath sounds, no respiratory distress, + decreased breath sounds Cardiovascular: regular rate, rhythm, no gallop, no murmur Abdomen: normal bowel sounds, soft, + guarding (R flank), + tenderness (R flank TTP, suprapubic area mildy TTP without guarding or rebound tenderness) Extremities: non-tender, normal inspection, no pedal edema Neurologic/Psychiatric: alert, normal mood/affect, oriented x 3 Skin: normal color, warm/dry, no rash Laboratory Results Last 24 Hours Test 09/23/16 16:30 09/23/16 20:36 09/24/16 06:00 09/24/16 07:55 Bedside Glucose 225 mg/dl 183 mg/dl 146 mg/dl White Blood Count 13.22 K/uL Red Blood Count 4.06 M/uL Hemoglobin 13.4 g/dL Hematocrit 39.3 % Mean Corpuscular Volume 96.8 fL Mean Corpuscular Hemoglobin 33.0 pg Mean Corpuscular Hemoglobin Concent 34.1 g/dl Platelet Count 188 K/uL Mean Platelet Volume 10.7 fL Neutrophils (%) (Auto) 85.4 % Lymphocytes (%) (Auto) 9.5 % Monocytes (%) (Auto) 4.7 % Eosinophils (%) (Auto) 0.0 % Basophils (%) (Auto) 0.1 % Neutrophils # (Auto) 11.29 K/uL Lymphocytes # (Auto) 1.26 K/uL Monocytes # (Auto) 0.62 K/uL Eosinophils # (Auto) 0.00 K/uL Basophils # (Auto) 0.01 K/uL RDW Standard Deviation 46.2 fL RDW Coefficient of Variation 13.0 % Immature Granulocyte % (Auto) 0.3 % Immature Granulocyte # (Auto) 0.04 K/uL Sodium Level 141 mmol/L Potassium Level 4.4 mmol/L Chloride Level 104 mmol/L Carbon Dioxide Level 26 mmol/L Anion Gap 11.0 mmol/L Blood Urea Nitrogen 37 mg/dl Creatinine 1.70 mg/dl Est Creatinine Clear Calc Drug Dose 26.4 ml/min Estimated GFR () 31.8 Estimated GFR (Non- 27.4 BUN/Creatinine Ratio 22.0 Random Glucose 166 mg/dl Calcium Level 9.0 mg/dl Magnesium Level 2.5 mg/dl Test 09/24/16 12:33 Bedside Glucose 180 mg/dl Assessment and Plan 81 y/o female with a history of HTN, DM II, HLD, hypothyroidism, peripheral neuropathy, and vitamin B12 deficiency who presents to the ED on 09/22/[address] of lumbar spine showed acute fractures of L1 and L2 at the transverse process as well as advanced lumbosacral spondylosis, mild scoliosis, and a chronic compression deformity of T12. Pt. hemodynamically stable upon arrival. -Admit to med/surg for pain management and possible surgical intervention. -Decadron 4 mg IV q6h -D/C Dilaudid and switch to PO pain control -Fentanyl patch 12 mcg TD q72h and Percocet 5/325 mg PO q6h prn breakthrough pain -Ortho spine consulted. As per Dr. Moore, corrective surgery would be very extensive, and pt wants to pursue conservative treatment at this time. Does not recommend brace now as it may actually increase pain/discomfort. Recommends light activity with rest and PT. -PT/OT Hoarseness--pt states this is improving -Continue lozenges -Consider ENT evaluation if persists HTN--stable -Continue carvedilol 12.5 mg PO BID and lisinopril 10 mg PO qd DM II--Last HgbA1c in inpatient records checked 08/23/15, was 6.0 -Hold glipizide -Insulin sliding scale -Check BSGs q ac and qhs -Recheck HgbA1c HLD -Continue atorvastatin 20 mg PO qd Hypothyroidism -Continue Synthroid 150 mcg PO qd Peripheral neuropathy -Continue gabapentin 600 mg PO qd Vitamin B12 deficiency -Continue B12 1000 mcg PO qd DVT prophylaxis -Hold chemical prophylaxis for possible surgical intervention -ALBA morales and Femi Code Status -Level I, FULL RESUSCITATION STATUS
[2016-09-24] MEDS: CHECK FENTANYL PATCH PLACEMENT SCH (16:40)
[2016-09-24 20:40] VITALS: BP 109/68; PULSE 72
[2016-09-24] MEDS: ATORVASTATIN 20 MG TAB PO SCH (20:42)
[2016-09-24] MEDS ORDERED: DOCUSATE SODIUM 100 MG CAP PO SCH (21:00)
[2016-09-24 23:00] VITALS: BP 146/77; PULSE 78; TEMP 37.1; O2SAT 94
[2016-09-25] MEDS: CHECK FENTANYL PATCH PLACEMENT SCH ×3 (00:42→15:40)
[2016-09-25] MEDS: OXYCODONE/ACETAMINOPHEN 5-325 TAB PO PRN ×5 (00:46→22:55)
[2016-09-25] MEDS: DEXAMETHASONE INJ 4 MG in SYRINGE 0 ML IV SCH ×4 (00:46→18:27)
[2016-09-25] MEDS: LEVOTHYROXINE 150 MCG TAB PO SCH (06:06)
[2016-09-25 07:10] VITALS: BP 162/87; PULSE 62; TEMP 36.7; O2SAT 91
[2016-09-25 07:11] LABS: COMPLETE YES; HEMATOCRIT 39.3 % (37-47); IG% 0.1 %; LYMPH % 9.5 %; MEAN CELL VOLUME 96.6 fL (80-100); MEAN CORPUSCULAR HEMOGLOBIN 33.4 pg (25-34); MEAN CORPUSCULAR HGB CONC 34.6 g/dl (32-36); MEAN PLATELET VOLUME 10.7 fL (7.4-10.4); NEUT % 86.4 %; PLATELET COUNT 197 K/uL (130-400); RED BLOOD COUNT 4.07 M/uL (4.2-5.4); WHITE BLOOD COUNT 13.62 K/uL (4.8-10.8)
[2016-09-25 07:36] LABS: BUN/CREATININE RATIO 28.1 (10-20); CALCIUM 9.2 mg/dl (8.5-10.1); CREATININE 1.4 mg/dl (0.60-1.20); MAGNESIUM 2.6 mg/dl (1.8-2.4); POTASSIUM 4.4 mmol/L (3.5-5.1)
[2016-09-25] MEDS: DOCUSATE SODIUM 100 MG CAP PO SCH ×2 (09:11→21:15)
[2016-09-25] MEDS: CHOLECALCIFEROL 1000 INTER.UNIT TAB PO SCH (09:11)
[2016-09-25] MEDS: CYANOCOBALAMIN 500 MCG TAB (VIT B-12) PO SCH (09:11)
[2016-09-25] MEDS: CEROVITE ADV FORMULA TAB PO SCH (09:11)
[2016-09-25] MEDS: CARVEDILOL 12.5 MG TAB PO SCH ×2 (09:11→21:15)
[2016-09-25] MEDS: GABAPENTIN 300 MG CAP PO SCH (09:12)
[2016-09-25] MEDS: INSULIN ASPART 100 UNITS/ML 3 ML PEN SC SCH ×4 (09:18→21:24)
[2016-09-25] MEDS ORDERED: NURSING VERBAL MED ORDER ONE ×2 (10:45)
[2016-09-25] MEDS ORDERED: OXYCODONE/ACETAMINOPHEN 5-325 TAB PO ONE (10:45)
--- NOTE | 2016-09-25 11:12 | Progress Note ---
Subjective Date of Service: Sep 25, 2016. Subjective Pt evaluation today including: conversation w/ patient, conversation w/ family , physical exam, chart review, lab review, review of studies, conversation w/ mergers and acquisitions consultant, review of inpatient medication list Voiding: no voiding problems Was up to the chair, but the pain in her lower back is not well controlled, reported a lot of pain, Problem List Medical Problems: (1) Fall Status: Acute (2) Laceration of left ear Status: Acute (3) Minor head injury Status: Acute (4) Multiple contusions Status: Acute (5) Multiple transverse process fractures Status: Acute (6) Scalp laceration Status: Acute Review of Systems Constitutional: No chills, No fatigue, No fever, No problem reported, No sweats , No weakness, No weight loss Eyes: No diplopia, No discharge, No eye pain, No redness, No worsening of vision ENT: No dental problems, No hearing loss, No nasal symptoms, No sore throat, No tinnitus, No trouble swallowing, No unusual epistaxis Respiratory: No cough, No dyspnea at rest, No dyspnea on exertion, No hemoptysis, No shortness of breath, No sputum, No wheezing Cardiac: No PND, No chest pain, No claudication, No edema, No orthopnea, No palpitations Abdomen: No constipation, No diarrhea, No nausea, No pain, No vomiting Musculoskeletal: + joint pain, No calf pain, No muscle pain, No swelling Female : No abnormal vaginal bleeding, No dysuria, No hematuria, No incontinence, No urinary frequency, No vaginal discharge Neurologic: No balance problems, No memory loss, No numbness/tingling, No paralysis, No vertigo, No weakness Psychiatric: No anhedonism, No anxiety, No depression symptoms, No insomnia, No substance abuse Heme: No abnormal bleeding/bruising, No clotting problems, No night sweats, No swollen lymph nodes Endo: No excessive thirst, No excessive urination, No fatigue Skin: No bleeding, No color change, No itch, No new/changing skin lesions, No rash Objective Vital Signs Date Time Temp Pulse Resp B/P Pulse Ox O2 Delivery O2 Flow Rate FiO2 09/25/16 07:10 36.7 62 21 162/87 91 Nasal Cannula 2.0 09/25/16 00:40 Nasal Cannula 2.0 09/24/16 23:00 37.1 78 18 146/77 94 Nasal Cannula 2.0 09/24/16 20:40 72 109/68 09/24/16 15:30 92 09/24/16 15:10 36.7 71 16 114/67 92 Room Air Physical Exam General Appearance: WD/WN, no apparent distress, + obese Eyes: normal inspection, PERRL, EOMI, sclerae normal ENT: normal ENT inspection, hearing grossly normal, pharynx normal Neck: supple, no adenopathy, thyroid normal, no JVD, no carotid bruits, trachea midline Respiratory/Chest: chest non-tender, lungs clear, normal breath sounds, no respiratory distress, no accessory muscle use Cardiovascular: regular rate, rhythm, no edema, no gallop, no JVD, no murmur Abdomen: normal bowel sounds, non tender, soft, no organomegaly, no pulsatile mass Extremities: normal range of motion, non-tender, normal inspection, no pedal edema, no calf tenderness, normal capillary refill, pelvis stable, + pertinent finding (lower back local tender in palpation) Neurologic/Psychiatric: shoe repairer II-XII nml as tested, no motor/sensory deficits, alert, normal mood/affect, oriented x 3 Skin: normal color, warm/dry, no rash Lymphatic: no adenopathy Laboratory Results Last 24 Hours Test 09/24/16 12:33 09/24/16 16:34 09/24/16 20:26 09/25/16 06:46 Bedside Glucose 180 mg/dl 144 mg/dl 164 mg/dl White Blood Count 13.62 K/uL Red Blood Count 4.07 M/uL Hemoglobin 13.6 g/dL Hematocrit 39.3 % Mean Corpuscular Volume 96.6 fL Mean Corpuscular Hemoglobin 33.4 pg Mean Corpuscular Hemoglobin Concent 34.6 g/dl Platelet Count 197 K/uL Mean Platelet Volume 10.7 fL Neutrophils (%) (Auto) 86.4 % Lymphocytes (%) (Auto) 9.5 % Monocytes (%) (Auto) 4.0 % Eosinophils (%) (Auto) 0.0 % Basophils (%) (Auto) 0.0 % Neutrophils # (Auto) 11.75 K/uL Lymphocytes # (Auto) 1.30 K/uL Monocytes # (Auto) 0.55 K/uL Eosinophils # (Auto) 0.00 K/uL Basophils # (Auto) 0.00 K/uL RDW Standard Deviation 46.3 fL RDW Coefficient of Variation 13.0 % Immature Granulocyte % (Auto) 0.1 % Immature Granulocyte # (Auto) 0.02 K/uL Sodium Level 144 mmol/L Potassium Level 4.4 mmol/L Chloride Level 107 mmol/L Carbon Dioxide Level 27 mmol/L Anion Gap 10.0 mmol/L Blood Urea Nitrogen 39 mg/dl Creatinine 1.40 mg/dl Est Creatinine Clear Calc Drug Dose 32.0 ml/min Estimated GFR () 40.2 Estimated GFR (Non- 34.7 BUN/Creatinine Ratio 28.1 Random Glucose 141 mg/dl Calcium Level 9.2 mg/dl Magnesium Level 2.6 mg/dl Test 09/25/16 07:12 Bedside Glucose 129 mg/dl Assessment and Plan 81 y/o female with a history of HTN, DM II, HLD, hypothyroidism, peripheral neuropathy, and vitamin B12 deficiency who presents to the ED on 09/22/[address] of lumbar spine showed acute fractures of L1 and L2 at the transverse process as well as advanced lumbosacral spondylosis, mild scoliosis, and a chronic compression deformity of T12. Pt. hemodynamically stable upon arrival. -Admit to med/surg for pain management and possible surgical intervention. -Has been on Decadron 4 mg IV q6h, will tapering -D/C Dilaudid and switch to PO pain control -Fentanyl patch 12 mcg TD q72h will continue - We'll increased Percocet 5/325 mg PO q6h prn breakthrough pain , 1 tab for pain less than 5 out of 10, 2 tab for pain more than 5 out of 10 -Ortho spine consulted. As per Dr. Moore, corrective surgery would be very extensive, and pt wants to pursue conservative treatment at this time. Does not recommend brace now as it may actually increase pain/discomfort. Recommends light activity with rest and PT. -PT/OT Hoarseness--pt states this is improving -Continue lozenges -Consider ENT evaluation if persists HTN--stable -Continue carvedilol 12.5 mg PO BID and lisinopril 10 mg PO qd DM II--Last HgbA1c in inpatient records checked 08/23/15, was 6.0 -Hold glipizide -Insulin sliding scale -Check BSGs q ac and qhs -Recheck HgbA1c HLD -Continue atorvastatin 20 mg PO qd Hypothyroidism -Continue Synthroid 150 mcg PO qd Peripheral neuropathy -Continue gabapentin 600 mg PO qd Vitamin B12 deficiency -Continue B12 1000 mcg PO qd DVT prophylaxis -Hold chemical prophylaxis for possible surgical intervention -ALBA morales and [employer] Code Status -Level I, FULL RESUSCITATION STATUS Discharge plan, talk with patient with the present of embedded case manager nurse, patient [facility], has referral, possible discharge tomorrow after better Pain control Continued [facility] stay due to: home environment unsafe for pt Discharge planning: retirement facility
[2016-09-25] MEDS: CALCIUM 600MG + VIT D 400 IU TAB PO SCH ×2 (11:18→21:14)
[2016-09-25 16:21] VITALS: BP 115/68; PULSE 70; TEMP 37; O2SAT 96
[2016-09-25] MEDS: ATORVASTATIN 20 MG TAB PO SCH (21:15)
[2016-09-25 23:22] VITALS: BP_SYST 149; BP_SYST 164; BP_DIAS 79; BP_DIAS 80; PULSE 69; TEMP 36.8; O2SAT 91
[2016-09-26] MEDS: CHECK FENTANYL PATCH PLACEMENT SCH ×2 (00:16→09:36)
[2016-09-26] MEDS: DEXAMETHASONE INJ 4 MG in SYRINGE 0 ML IV SCH ×2 (00:27→05:50)
[2016-09-26] MEDS: LEVOTHYROXINE 150 MCG TAB PO SCH (05:50)
[2016-09-26 07:42] VITALS: BP 158/83; PULSE 63; TEMP 36.7; O2SAT 93
[2016-09-26] MEDS: OXYCODONE/ACETAMINOPHEN 5-325 TAB PO PRN ×2 (08:05→13:30)
[2016-09-26] MEDS: CALCIUM 600MG + VIT D 400 IU TAB PO SCH (09:34)
[2016-09-26] MEDS: CEROVITE ADV FORMULA TAB PO SCH (09:35)
[2016-09-26] MEDS: CYANOCOBALAMIN 500 MCG TAB (VIT B-12) PO SCH (09:35)
[2016-09-26] MEDS: GABAPENTIN 300 MG CAP PO SCH (09:35)
[2016-09-26] MEDS: CHOLECALCIFEROL 1000 INTER.UNIT TAB PO SCH (09:35)
[2016-09-26] MEDS: CARVEDILOL 12.5 MG TAB PO SCH (09:35)
[2016-09-26] MEDS: DOCUSATE SODIUM 100 MG CAP PO SCH (09:35)
[2016-09-26] MEDS: INSULIN ASPART 100 UNITS/ML 3 ML PEN SC SCH ×2 (09:42→13:34)
[2016-09-26 10:06] LABS: HEMATOCRIT 43.4 % (37-47); MEAN CELL VOLUME 96.9 fL (80-100); MEAN CORPUSCULAR HGB CONC 34.1 g/dl (32-36); MEAN PLATELET VOLUME 11.1 fL (7.4-10.4); PLATELET COUNT 227 K/uL (130-400); RED BLOOD COUNT 4.48 M/uL (4.2-5.4); WHITE BLOOD COUNT 13.01 K/uL (4.8-10.8)
[2016-09-26 10:52] LABS: BLOOD UREA NITROGEN 42 mg/dl (7-18); BUN/CREATININE RATIO 28.1 (10-20); CALCIUM 9.5 mg/dl (8.5-10.1); CARBON DIOXIDE 26 mmol/L (21-32); CHLORIDE 104 mmol/L (98-107); GLUCOSE 185 mg/dl (70-99); SODIUM 140 mmol/L (136-145)
[2016-09-26] MEDS ORDERED: CPC PO (11:49)
[2016-09-26] MEDS ORDERED: PRD20 PO (11:49)
[2016-09-26] MEDS ORDERED: OXYC-57 PO (11:49)
[2016-09-26] MEDS ORDERED: DRGTP12 TD (11:49)
--- NOTE | 2016-09-26 12:13 | Discharge Instructions ---
Discharge Instructions Admission Reason for Admission: Degenerative Lumbar Spinal Stenosis,Multiple Trans Discharge Discharge Diagnosis / Problem: Multipe transverse process fractures of lumbar spine Discharge Goals Goal(s): Decrease discomfort, Improve function, Diagnostic testing, Therapeutic intervention Activity Recommendations Activity Limitations: as noted below Lifting Limitations: no more than 10 pounds Exercise/Sports Limitations: gradually increase as tolerated Shower/Bathe: no limitations Instructions / Follow-Up Instructions / Follow-Up You were admitted to the hospital due to acute fractures in your lumbar spine as shown on a lumbar spine CT scan. The fracture are located in the right transverse process of your lumbar spine, in vertebra L1 and L2. You were admitted to medical/surgical floor for pain management. You were given IV steroids to help reduce inflammation as well as IV pain medications. The spine surgeon, Dr. Moore, was consulted. Surgical intervention would require extensive surgery, so it was agreed to follow conservative treatment with pain control and physical therapy. A brace was not recommended as Dr. Moore thought that this would actually increase your pain and discomfort. He recommended you pursue physical therapy. The inpatient physical therapy team evaluated you and recommended that you go to an inpatient acute rehab facility. You have been cleared to go to [facility] for acute rehab. You may continue the fentanyl patch 12 mcg transdermal (to the skin) every 72 hours. Remove the patch after 72 hours. You may also continue Percocet ( oxycodone and acetaminophen) 5/325 mg by mouth every 6 hours as needed for pain. You may take 1 tablet for pain rating 1-5 out of 10 and 2 tablets at once for pain rating 6-10 out of 10. You have been given a 3 day supply. Further adjustments can be made to your regimen at [facility]. You received several days of IV steroids. Your steroid dose will be tapered down over the next 8 days. The IV steroids were stopped and you will start an oral steroid called Prednisone. You have been given 20 mg tablets. Please take 2 tablets by mouth twice a day for days 1 and 2. Take 2 tablets once a day for days 3 and 4. Take 1 tablet once day for days 5 and 6. For the last 2 days, take 1 tablet and cut it in half. Take 0.5 tablet once a day on days 7 and 8. One of your medications for blood pressure, lisinopril, has been held because you have had impaired kidney function. Stop that medication until you can follow up with a primary care provider and ensure your kidney function is back to normal. Stay hydrated and drink plenty of fluids to improve your kidney function. Please see a primary care provider in 1 week for follow up. Current Hospital Diet Patient's current hospital diet: Regular Diet Discharge Diet Recommended Diet: Diabetes Type 2 Diet Pending Studies Studies pending at discharge: no Laboratory Results Hemoglobin A1c Test 09/23/16 11:35 Range/Units Estimated Average Glucose 120 mg/dl Hemoglobin A1c 5.8 H 4.5-5.6 % Medical Emergencies . Who to Call and When: Medical Emergencies: If at any time you feel your situation is an emergency, please call 911 immediately. . Non-Emergent Contact Non-Emergency issues call your: Primary Care Provider Call Non-Emergent contact if: you have a fever, your pain is not controlled, your pain is worsening, your pain is concerning you, you have any medication questions . Past History Medical & Surgical History: (1) Multiple transverse process fractures (2) Degenerative lumbar spinal stenosis (3) Hypertension (4) Diabetes . "Provider Documentation" section prepared by Janelle Tompkins. VTE Core Measure Inpt VTE Proph given/why not?: SCD's
[2016-09-26 13:01] VITALS: BP 158/83; PULSE 63; TEMP 36.7; O2SAT 93
--- NOTE | 2016-09-26 14:01 | Discharge Summary ---
Discharge Summary Admission Date: Sep 22, 2016 at 22:05 Discharge Date: Sep 26, 2016 Discharge Disposition: Rehab ([facility]) Principal Diagnosis: Multiple transverse process fractures of lumbar spine Immunizations: Have You Had Influenza Vaccine: Yes Influenza Vaccine Date: Jun 28, 2007 History of Tetanus Vaccine?: Unknown History of Pneumococcal: Yes Pneumococcal Date: Aug 04, 2007 History of Hepatitis B Vaccine: Unknown Procedures: Patient Name: OLE PATTON Unit Number: [id number] Dictated: 09/22/161917 Transcribed: 09/22/161917 EV Printed Date/Time: [~ rep prt dt]/[~ rep prt tm] [~ rep ct labl] - [~ rep ct ivnm] [facility] Radiology Department [place] [id number] Dictated: 09/22/161917 Transcribed: 09/22/161917 EV Printed Date/Time: [~ rep prt dt]/[~ rep prt tm] [~ rep ct labl] - [~ rep ct ivnm] Patient: OLE PATTON Address1: [address] [place] [address] Rec: [id number] Address2: Acct ID: [id number] [facility] Zip: [place] [address] Date: 1935 Sex: F Room/Bed: Ref Phy: Adriano Castellanos M.D. SC: FRANNY Hernandez Phy: Report #: [id number] [place] Phy: Adriano Castellanos M.D. Test: LSWO Admit Phy: Concrete Pump Operator: NYLA Interpreting Phy: Michael Scherer M.D. Diagnosis: BACK PAIN Ordering Phy: Dillon Knox MD Service Date: 09/22/16 Admit Date: 09/22/16 MNE: [id number] CONF: DICTATED BY: Michael Scherer M.D.]] CC: Adriano Castellanos M.D. Maciejczyk, John F., MD Endcc: [~ rep ct add3]] CT SCAN OF THE LUMBAR SPINE WITHOUT IV CONTRAST CLINICAL HISTORY: Fall with back pain. COMPARISON STUDY: CT scan of lumbar spine dated 06/27/2015. TECHNIQUE: CT scan of the lumbar spine is performed from the lower thoracic spine to the sacrum. Images are reviewed in the axial, sagittal, and coronal planes. IV contrast was not administered for this examination. CT DOSE: 663.99 mGy.cm FINDINGS: The skeletal structures are osteopenic. Vertebral body height is maintained throughout the lumbar spine. There is minimal retrolisthesis of L2-L3 and L3-L4. Alignment is otherwise preserved. There is mild lumbar dextrocurvature centered at L3. Anterior and marginal osteophytes are present throughout. There is a nondistracted right transverse process fracture of L1. There is a tiny fracture from the tip of the right transverse process at L2. The remaining transverse processes and the spinous processes appear intact. Advanced facet arthropathy is noted in the lower lumbar region. There is no spondylolysis. There is a mild chronic compression deformity of T12 with evidence of previous vertebroplasty. No lytic or blastic lesions is seen. There is advanced degenerative disc space narrowing at L2-L3, L3-L4, and L4-L5. Endplate sclerosis is noted at these levels. There is likely acquired compromise the central canal from L1-L2 through L4-L5. The visualized sacrum and bony pelvis appear intact. Postoperative changes from a left hip arthroplasty are partially imaged. There is fatty atrophy of the paraspinous musculature. Advanced atherosclerotic calcification is noted in the abdominal aorta. There is no retroperitoneal lymphadenopathy. Colonic diverticulosis is partially imaged. There is a trace right pleural effusion. IMPRESSION: 1. There are acute nondistracted right transverse process fractures of L1 and L2. 2. No additional fracture is seen involving the lumbar spine. Vertebral body height is preserved. 3. Osteopenia with advanced lumbosacral spondylosis and mild scoliosis as above. 4. There is a chronic compression deformity of T12 with evidence of previous vertebroplasty. 5. Additional changes as above. Electronically signed by: Michael Scherer M.D. 09/22/2016 7:25 PM The status of this report is Signed. Draft = Not yet reviewed or approved by Radiologist. Signed = Reviewed and approved by Radiologist. <AttendingPhy></AttendingPhy> <FamilyPhy>Adriano Castellanos M.D.</FamilyPhy > <PrimaryPhy>Adriano Castellanos M.D.</PrimaryPhy> <UnitNumber>[id number]</ UnitNumber> <VisitNumber>[id number]</VisitNumber> <PatientName>OLE PATTON</ PatientName> <DateOfBirth>1935</DateOfBirth> <Location>[facility]</Location> < ServiceDate>09/22/16</ServiceDate> <MNE>ESINDI</MNE> <OrderingPhy>Dillon Knox MD</OrderingPhy> <OrderingPhyMNE>f rep ord dr perrin</OrderingPhyMNE> < DictatingPhyMNE>f rep dict dr perrin</DictatingPhyMNE> <CCListMNE>f rep ct mne</ CCListMNE> <AdmittingPhyMNE>f pt admit dr perrin</AdmittingPhyMNE> <AttendingPhyMNE >f pt attend dr perrin</AttendingPhyMNE> <ConsultingPhyMNE>f pt consult dr perrin</ConsultingPhyMNE> <FamilyPhyMNE>f pt fam dr perrin</FamilyPhyMNE> <OtherPhyMNE>f pt other dr perrin</OtherPhyMNE> < PrimaryPhyMNE>f pt prim care dr perrin</PrimaryPhyMNE> <ReferringPhyMNE>f pt referring dr perrin</ReferringPhyMNE> Medication Reconciliation New Medications: Fentanyl (Fentanyl) 12 Mcg Tdsy 12 MCG TD Q72H for 3 Days, #[address] 1 patch on skin, remove after 72 hours Menthol (Ricola) 24 Franchesca/1 Box Lozg 1 FRANCHESCA PO PRN PRN for SORE THROAT for 7 Days, #1 BOX Take lozenges as needed for sore throat. Oxycodone/Acetaminophen 5MG/325MG (Percocet 5MG/325MG) Tab 1-2 TAB PO Q6H PRN for Pain for 3 Days, #18 TAB Take 1 tablet for pain rating 1-5 out of 10, take 2 tablets for pain rating 6-10 out of 10. May take every 6 hours. Prednisone (Prednisone) 20 Mg Tab 20 MG PO UD for 8 Days, #15 TAB 2 tabs twice a day on days 1 & 2. 2 tabs daily on days 3 & 4. 1 tab daily on days 5 & 6. 1/2 tab daily on days 7 & 8. Continued Medications: Acetaminophen (Tylenol) 500 Mg Tab 1000 MG PO TID PRN for Pain, TAB Atorvastatin (Lipitor) 20 Mg Tab 20 MG PO QPM, TAB TAKE WITH EVENING MEAL. Calcium (Caltrate) 600 Mg Tab 600 MG PO DAILY, TAB Carvedilol (Carvedilol) 12.5 Mg Tab 12.5 MG PO BID, #60 Cholecalciferol (Vitamin D) 1,000 Inter.unit Tab 2000 INTER.UNIT PO DAILY, TAB Cyanocobalamin (Vitamin B-12) 1,000 Mcg Sub 1000 MCG PO QAM Docusate Sodium (Colace) 100 Mg Cap 1 CAP PO BID for 15 Days, #30 CAP Gabapentin (Neurontin) 300 Mg Cap 600 MG PO QAM, CAP Glipizide (Glipizide) 5 Mg Tab 5 MG PO QAM Levothyroxine Sodium (Levothyroxine Sodium) 150 Mcg Tab 150 MCG PO QAM Misc Natural Products (Osteo Bi-Flex Advanced Do) 1 Tab Tab 1 TAB PO QAM Multivitamins/Minerals (Mvi With Minerals) Tab 1 TAB PO QAM, TAB [eye pills] () 1 TAB PO DAILY Discontinued Medications: Lisinopril (Lisinopril) 10 Mg Tab 10 MG PO QD, #30 Referrals At Discharge Follow up Referrals: Orthopedics Referral - Within 2 Weeks with Nithin Moore D.O. Discharge Exam Patient reports that pain feels the same, however the Percocet does help alleviate the pain temporarily when given. Her pain is currently a 9/10 sharp pain located in her lower back and right paraspinal area with radiation to the right flank. Her voice is still hoarse, and her sore throat persists, although the lozenges help. The patient denies fevers, chills, sweats, chest pain, palpitations, claudication, cough, wheezing, shortness of breath, nausea, vomiting, abdominal pain, dysuria, hematuria, urinary retention, paralysis, weakness, new numbness and tingling. Review of Systems: Constitutional: No chills, No fever, No sweats Eyes: No diplopia, No eye pain, No worsening of vision ENT: + sore throat, No hearing loss, No tinnitus, No trouble swallowing Respiratory: No cough, No shortness of breath, No wheezing Cardiovascular: No chest pain, No claudication, No palpitations Abdomen: No nausea, No pain, No vomiting Musculoskeletal: + joint pain, No muscle pain, No swelling Genitourinary - Female: No dysuria, No hematuria, No urinary retention Neurologic: No numbness/tingling, No paralysis, No weakness Integumentary: No color change, No itch, No rash Physical Exam: General Appearance: WD/WN, no apparent distress (pt talking comfortably with me) Eyes: normal inspection, PERRL, EOMI ENT: normal ENT inspection, hearing grossly normal, pharynx normal Neck: supple, no adenopathy, no JVD, trachea midline Respiratory/Chest: lungs clear, normal breath sounds, no respiratory distress, + decreased breath sounds Cardiovascular: regular rate, rhythm, no gallop, no murmur Abdomen / GI: normal bowel sounds, soft, + tenderness (R flank TTP, suprapubic region mildly TTP), + guarding (R flank) Extremities: normal inspection, no calf tenderness, no pedal edema Neurologic/Psychiatric: alert, normal mood/affect, oriented x 3 Skin: normal color, warm/dry, no rash Hospital Course 81 y/o female with a history of HTN, DM II, HLD, hypothyroidism, peripheral neuropathy, and vitamin B12 deficiency who presents to the ED on 09/22/[address] of lumbar spine showed acute fractures of L1 and L2 at the transverse process as well as advanced lumbosacral spondylosis, mild scoliosis, and a chronic compression deformity of T12. Pt. hemodynamically stable upon arrival. -Admit to med/surg for pain management and possible surgical intervention. -Decadron 4 mg IV q6h x 3 days. D/C'd prior to discharge, will taper with oral Prednisone over 8 days: 40 mg BID x 2 days, 40 mg qd x 2 days, 20 mg qd x 2 days, 10 mg qd x 2 days, then stop. -D/C Dilaudid and switch to PO pain control -Fentanyl patch 12 mcg TD q72h and Percocet 5/325 mg PO q6h prn breakthrough pain. May take 1 Percocet tablet for pain rating 1-5, 2 tabs for pain rating 6- 10. Given 3 day supply at discharge, [facility] may adjust as necessary. -Ortho spine consulted. As per Dr. Moore, corrective surgery would be very extensive, and pt wants to pursue conservative treatment at this time. Does not recommend brace now as it may actually increase pain/discomfort. Recommends light activity with rest and PT. -PT/OT recommend acute rehab, pt. cleared for [place] Hoarseness--pt states this is improving -Continue lozenges -Consider ENT evaluation if persists HTN--stable -Continue carvedilol 12.5 mg PO BID -Hold lisinopril 10 mg PO qd due to impaired renal function. Encouraged to stay hydrated with PO fluids. Pt. will f/u with PCP regarding resolution of DAVONTE , may resume lisinopril at that time. DM II--Last HgbA1c in inpatient records checked 08/23/15, was 6.0 -Resume glipizide 5 mg PO qd at discharge -Insulin sliding scale -Check BSGs q ac and qhs -Rechecked HgbA1c, 5.8 on 09/23 HLD -Continue atorvastatin 20 mg PO qd Hypothyroidism -Continue Synthroid 150 mcg PO qd Peripheral neuropathy -Continue gabapentin 600 mg PO qd Vitamin B12 deficiency -Continue B12 1000 mcg PO qd DVT prophylaxis -Held chemical prophylaxis for possible surgical intervention -ALAB morales and Femi Code Status -Level I, FULL RESUSCITATION STATUS Total Time Spent: Greater than 30 minutes This includes examination of the patient, discharge planning, medication reconciliation, and communication with other providers. Discharge Instructions Please refer to the electronic Patient Visit Report (Discharge Instructions) for additional information.
[2016-09-27] MEDS ORDERED: FENTANYL PATCH REMOVE & WASTE SCH (15:29)
[2017-02-17] MEDS ORDERED: OXYB5TAB74 PO (12:02)
== END 2016-09-26 14:17 | DRG 552 ==
LOC: ENRESERVTM → ENRESERVDT → C.EDB 17:06 → C.MSW 22:05
PROVIDERS: ADMIT Hospitalist; ATTEND Hospitalist
DX: S32.019A Unspecified fracture of first lumbar vertebra, initial encounter for closed fracture (principal); S32.029A Unspecified fracture of second lumbar vertebra, initial encounter for closed fracture; W22.8XXA Striking against or struck by other objects, initial encounter; Y92.008 Other place in unspecified non-institutional (private) residence as the place of occurrence of the external cause; M47.817 Spondylosis without myelopathy or radiculopathy, lumbosacral region; M41.80 Other forms of scoliosis, site unspecified; M43.8X4 Other specified deforming dorsopathies, thoracic region; M48.06 Spinal stenosis, lumbar region; N28.9 Disorder of kidney and ureter, unspecified; R49.0 Dysphonia; N39.41 Urge incontinence; R15.9 Full incontinence of feces; E11.42 Type 2 diabetes mellitus with diabetic polyneuropathy; I10 Essential (primary) hypertension; I25.10 Atherosclerotic heart disease of native coronary artery without angina pectoris; E78.00 Pure hypercholesterolemia, unspecified; E78.5 Hyperlipidemia, unspecified; E03.9 Hypothyroidism, unspecified; E53.8 Deficiency of other specified B group vitamins; Z79.84 Long term (current) use of oral hypoglycemic drugs; Z79.899 Other long term (current) drug therapy

== ENCOUNTER → 2016-10-01 | Outpatient (CLI) | payer OTHER ==
[~2016-10-01] MED LIST changes: +AMOX1TAB43 PO; +CALC-393 PO; +CHOL1000 PO; +CPC PO; +DRGTP12 TD; +HYDR-4717 PO; +LPT/40 PO; +LUTE6TAB PO; -OMEG10007 PO; +OXYB5TAB74 PO; +OXYC-57 PO; +PANT40TA PO; +PRD20 PO; +[UNRECOGNIZED DRUG - REMARK] PO
== END ==
LOC: C.LABCC 16:25
PROVIDERS: ATTEND Internal Medicine
DX: R19.7 Diarrhea, unspecified (principal)

== ENCOUNTER → 2016-10-01 | Outpatient (CLI) | payer OTHER ==
[2016-10-01 08:42] LABS: BLOOD UREA NITROGEN 46 mg/dl (7-18); BUN/CREATININE RATIO 35.3 (10-20); CALCIUM 8.3 mg/dl (8.5-10.1); CARBON DIOXIDE 30 mmol/L (21-32); CHLORIDE 106 mmol/L (98-107); GLUCOSE 131 mg/dl (70-99); SODIUM 145 mmol/L (136-145)
== END ==
LOC: C.LABCC 08:06
PROVIDERS: ATTEND Internal Medicine
DX: E87.1 Hypo-osmolality and hyponatremia (principal); R19.7 Diarrhea, unspecified

== ENCOUNTER → 2016-10-08 | Outpatient (CLI) | payer OTHER ==
[2016-10-08 18:29] LABS: CHOLESTEROL/HDL RATIO 2.5; THYROID STIMULATING HORMONE 6.12 uIu/ml (0.300-4.500)
== END | disposition home or self-care (01) ==
LOC: C.LABBFT 16:42
PROVIDERS: ATTEND Internal Medicine
DX: M81.0 Age-related osteoporosis without current pathological fracture (principal); E03.9 Hypothyroidism, unspecified; E78.00 Pure hypercholesterolemia, unspecified

== ENCOUNTER → 2017-01-31 | Outpatient (CLI) | payer OTHER ==
[~2017-01-31] MED LIST changes: +DTR/5 PO; -OXYB5TAB74 PO
[2017-01-31 18:42] LABS: BLOOD UREA NITROGEN 14 mg/dl (7-18); CALCIUM 9.5 mg/dl (8.5-10.1); CARBON DIOXIDE 32 mmol/L (21-32); CHLORIDE 107 mmol/L (98-107); CHOLESTEROL 159 mg/dl (0-200); GLUCOSE 111 mg/dl (70-99); POTASSIUM 4.2 mmol/L (3.5-5.1); SODIUM 142 mmol/L (136-145)
[2017-01-31 18:53] LABS: ALB/GLOB RATIO 0.9 (0.9-2); ALKALINE PHOSPHATASE 78 U/L (45-117); ALT/SGPT 18 U/L (12-78); AST/SGOT 20 U/L (15-37); CHOLESTEROL/HDL RATIO 3.1; HDL CHOLESTEROL 51 mg/dl; LDL CHOLESTEROL CALCULATED 82 mg/dl; TRIGLYCERIDES 129 mg/dl (0-150); VERY LOW DENSITY LIPOPROT CALC 26 mg/dl
[2017-02-01 07:20] LABS: ESTIMATED AVERAGE GLUCOSE 120 mg/dl; HA1C FLAG Normal (Normal)
== END | disposition home or self-care (01) ==
LOC: C.LABBFT 11:56
PROVIDERS: ATTEND Internal Medicine
DX: E03.9 Hypothyroidism, unspecified (principal); M81.0 Age-related osteoporosis without current pathological fracture; E11.9 Type 2 diabetes mellitus without complications; N18.3 Chronic kidney disease, stage 3 (moderate); E78.00 Pure hypercholesterolemia, unspecified

== ENCOUNTER → 2017-02-03 | Outpatient (CLI) | payer OTHER ==
[2017-02-03 18:10] LABS: RATIO 6.2 mcg/mg (0-30.0)
== END | disposition home or self-care (01) ==
LOC: C.LABBFT 09:15
PROVIDERS: ATTEND Internal Medicine
DX: E11.9 Type 2 diabetes mellitus without complications (principal)

== ENCOUNTER 2017-02-17 11:23 | Inpatient (IN) | payer OTHER ==
[~2017-02-17] VITALS: Ht 170.2 cm; Wt 75.0 kg
[~2017-02-17 11:23] MED LIST changes: -AMOX1TAB43 PO; -CALC-393 PO; -CHOL1000 PO; -DTR/5 PO; -HYDR-4717 PO; -LISI-461 PO; -LPT/40 PO; -LUTE6TAB PO; -PANT40TA PO
[2017-02-17] MEDS ORDERED: LPT/40 PO (12:02)
[2017-02-17] MEDS ORDERED: HYDR-4717 PO (12:02)
[2017-02-17] MEDS ORDERED: LUTE6TAB PO (12:02)
[2017-02-17] MEDS ORDERED: LISI-461 PO (12:02)
[2017-02-17] MEDS ORDERED: DTR/5 PO (12:02)
[2017-02-17] MEDS ORDERED: CALC-393 PO (12:03)
[2017-02-17] MEDS ORDERED: CHOL1000 PO (12:03)
[2017-02-17 12:05] LABS: BASO % 0.2 %; BASO ABS # 0.02 K/uL (0-0.2); COMPLETE YES; EOS % 4.4 %; HEMATOCRIT 41.2 % (37-47); IG% 0.2 %; LYMPH % 25.6 %; MEAN CELL VOLUME 98.1 fL (80-100); MEAN CORPUSCULAR HEMOGLOBIN 31.9 pg (25-34); MEAN CORPUSCULAR HGB CONC 32.5 g/dl (32-36); MEAN PLATELET VOLUME 10.6 fL (7.4-10.4); MONO % 8.1 %; NEUT % 61.5 %; PLATELET COUNT 208 K/uL (130-400); WHITE BLOOD COUNT 8.59 K/uL (4.8-10.8)
[2017-02-17 12:15] LABS: PROTHROMBIN TIME (PATIENT) 10.8 SECONDS (9.0-12.0)
[2017-02-17 12:20] LABS: BLOOD UREA NITROGEN 16 mg/dl (7-18); BUN/CREATININE RATIO 13.2 (10-20); CALCIUM 8.7 mg/dl (8.5-10.1); CARBON DIOXIDE 31 mmol/L (21-32); CHLORIDE 111 mmol/L (98-107); GLUCOSE 111 mg/dl (70-99); SODIUM 146 mmol/L (136-145)
[2017-02-17] MEDS ORDERED: OPTIRAY 320 IV PRN (12:30)
--- NOTE | 2017-02-17 12:50 | EMERGENCY ROOM VISIT NOTE ---
History First contact with patient: 12:22 Chief Complaint: RECTAL BLEEDING Stated Complaint: RECTAL BLEEDING Nursing Triage Summary: pt reports 3 episodes of bright red blood with bowel movement today. pt reports feeling dizzy. pt reports similar episode last week "i had eaten a tomato and i am not sure if it was blood or the tomato in my bowel movement. History of Present Illness The patient is a 82 year old female who presents to the Emergency Room with complaints of bright red blood per rectum. The patient woke up this morning and went to the restroom and found bright red blood in the toilet. She denies any pain with defecation but had 3 bowel movements with just blood. She has been taking an aspirin 325mg tablet for the last week. She also states she has been have left sided abdominal pain and diarrhea for the last while. She denies any pain with bowel movements. She denies any nausea or vomiting. She did not take any of her medications this morning. Patient states that she has a history of diverticulitis for which she had surgery (hemicolectomy). She also has a history of C Diff. Review of Systems See HPI for pertinent positives and negatives. A total of ten systems were reviewed and were otherwise negative. Past Medical/Surgical History Medical Problems: (1) Degenerative lumbar spinal stenosis (2) Diabetes (3) Diverticulitis (4) GERD (gastroesophageal reflux disease) (5) Heart disease (6) Hypertension Surgical Problems: (1) History of cholecystectomy (2) History of hysterectomy (3) S/P kyphoplasty Family History FHx: diabetes Social History Smoking Status: Never Smoker Alcohol Use: none Drug Use: none Marital Status: Housing Status: lives with family Occupation Status: retired Current/Historical Medications Scheduled Atorvastatin (Lipitor), 40 MG PO DAILY Calcium Carbonate (Calcium), 600 MG PO DAILY Carvedilol (Carvedilol), 12.5 MG PO BID Cholecalciferol (Vitamin D3), 1 TAB PO DAILY Cyanocobalamin (Vitamin B-12), 1,000 MCG PO QAM Docusate Sodium (Colace), 1 CAP PO BID Fentanyl (Fentanyl), 12 MCG TD Q72H Gabapentin (Neurontin), 300 MG PO TID Glipizide (Glipizide), 5 MG PO QAM Hydralazine Hcl (Apresoline), 25 MG PO BID Levothyroxine Sodium (Levothyroxine Sodium), 150 MCG PO QAM Lisinopril (Zestril), 10 MG PO DAILY Lutein-Zeaxanthin (Lutein W/Zeaxanthin), 1 TAB PO DAILY Misc Natural Products (Osteo Bi-Flex Advanced Do), 1 TAB PO QAM Multivitamins/Minerals (Mvi With Minerals), 1 TAB PO QAM Oxybutynin Chloride (Ditropan), 5 MG PO DAILY Scheduled PRN Acetaminophen (Tylenol), 1,000 MG PO TID PRN for Pain Allergies Coded Allergies: Celecoxib (Verified Allergy, Severe, SX OF STROKE, FACIAL NUMBNESS, UNABLE TO SPEAK, 02/17/17) Tolerates aleve and aspirin Metronidazole (Verified Adverse Reaction, Mild, N/V, 02/17/17) Ciprofloxacin (Verified Adverse Reaction, Unknown, UPSET STOMACH, 02/17/17) Physical Exam Vital Signs Date Time Temp Pulse Resp B/P Pulse Ox O2 Delivery O2 Flow Rate FiO2 02/17/17 13:30 66 18 165/91 93 Room Air 02/17/17 12:30 64 18 161/91 93 Room Air 02/17/17 12:25 65 02/17/17 11:27 36.7 71 18 161/90 96 Room Air Physical Exam GENERAL: Awake, alert, well-appearing, in no distress HENT: Normocephalic, atraumatic. EYES: Normal conjunctiva. Sclera non-icteric. NECK: Supple. No nuchal rigidity. RESPIRATORY: Clear to auscultation. CARDIAC: Regular rate, normal rhythm. Extremities warm and well perfused. Pulses equal. ABDOMEN: Soft, non-distended. LLQ tenderness to palpation. No rebound or guarding. No masses. RECTAL: No visible anal fissures. 1 external hemorrhoid visible. No gross blood or visible bleeding from rectum. MUSCULOSKELETAL: Chest examination reveals no tenderness. The back is symmetrical on inspection without obvious abnormality. There is no CVA tenderness to palpation. No joint edema. LOWER EXTREMITIES: Calves are equal size bilaterally and non-tender. No edema. No discoloration. NEURO: Normal sensorium. No sensory or motor deficits noted. SKIN: No rash or jaundice noted. Medical Decision & Procedures Laboratory Results 02/17/17 11:45 Red Blood Count 4.20, Mean Corpuscular Volume 98.1, Mean Corpuscular Hemoglobin 31.9, Mean Corpuscular Hemoglobin Concent 32.5, Mean Platelet Volume 10.6, Neutrophils (%) (Auto) 61.5, Lymphocytes (%) (Auto) 25.6, Monocytes (%) (Auto) 8.1, Eosinophils (%) (Auto) 4.4, Basophils (%) (Auto) 0.2, Neutrophils # (Auto) 5.27, Lymphocytes # (Auto) 2.20, Monocytes # (Auto) 0.70, Eosinophils # (Auto) 0.38, Basophils # (Auto) 0.02 02/17/17 11:45 Test 02/17/17 11:45 White Blood Count 8.59 K/uL (4.8-10.8) Red Blood Count 4.20 M/uL (4.2-5.4) Hemoglobin 13.4 g/dL (12.0-16.0) Hematocrit 41.2 % (37-47) Mean Corpuscular Volume 98.1 fL (80-100) Mean Corpuscular Hemoglobin 31.9 pg (25-34) Mean Corpuscular Hemoglobin Concent 32.5 g/dl (32-36) Platelet Count 208 K/uL (130-400) Mean Platelet Volume 10.6 fL (7.4-10.4) Neutrophils (%) (Auto) 61.5 % Lymphocytes (%) (Auto) 25.6 % Monocytes (%) (Auto) 8.1 % Eosinophils (%) (Auto) 4.4 % Basophils (%) (Auto) 0.2 % Neutrophils # (Auto) 5.27 K/uL (1.4-6.5) Lymphocytes # (Auto) 2.20 K/uL (1.2-3.4) Monocytes # (Auto) 0.70 K/uL (0.11-0.59) Eosinophils # (Auto) 0.38 K/uL (0-0.5) Basophils # (Auto) 0.02 K/uL (0-0.2) RDW Standard Deviation 49.6 fL (36.4-46.3) RDW Coefficient of Variation 13.9 % (11.5-14.5) Immature Granulocyte % (Auto) 0.2 % Immature Granulocyte # (Auto) 0.02 K/uL (0.00-0.02) Prothrombin Time 10.8 SECONDS (9.0-12.0) Prothromb Time International Ratio 1.0 (0.9-1.1) Anion Gap 4.0 mmol/L (3-11) Estimated GFR () 48.1 Estimated GFR (Non- 41.5 BUN/Creatinine Ratio 13.2 (10-20) Calcium Level 8.7 mg/dl (8.5-10.1) Medical Decision Patient is an 82 year old female that presents with bright red blood per rectum Differential: Diverticulitis, Diverticulosis, Clotting Abnormality, Colon Cancer , Hemorrhoids, Anal Fissure Labs ordered: CBC, BMP, PT/INR Imaging ordered: CT Abd/Pelvis with IV Contrast - CBC, PT/INR, and BMP wnl - CT shows mild nonspecific colitis or diverticulitis - Due to ongoing rectal bleeding and imaging consistent with possible colitis or diverticulitis, consult placed to [facility] to have patient admitted for inpatient treatment Impression Primary Impression: Rectal bleeding Additional Impression: Diverticulitis Departure Information Dispostion Admitted as an inpatient Condition GOOD Referrals Adriano Castellanos M.D. (PCP) Patient Instructions [facility] Problem Qualifiers Additional Impression: Diverticulitis Diverticulitis site: large intestine Diverticulitis bleeding: with bleeding Diverticulitis complication: unspecified complication status Qualified Codes : K57.33 - Diverticulitis of large intestine without perforation or abscess with bleeding
--- NOTE | 2017-02-17 13:00 | DIAGNOSTIC IMAGING REPORT ---
ABDOMEN AND PELVIS CT WITH IV CONTRAST CT DOSE: 461.95 mGy.cm HISTORY: Blood in stool, abdominal tenderness TECHNIQUE: Multiaxial CT images of the abdomen and pelvis were performed following the use of intravenous contrast. COMPARISON STUDY: Abdomen and pelvis CT 06/11/2015. FINDINGS: Mild dependent changes seen within the lungs posteriorly. Pacemaker wires are present. Trace bilateral pleural effusions have improved. Left total hip arthroplasty. A T12 vertebroplasty. Cholecystectomy. The liver, spleen, and adrenal glands are unremarkable. The kidneys enhance normally. No hydronephrosis. Multiple punctate calcifications within the pancreas. This remains unchanged. No retroperitoneal lymphadenopathy. Hysterectomy. Bladder is now well-visualized but appears unremarkable. Colonic diverticulosis. No evidence for bowel obstruction. Mild thickening and pericolonic fat stranding at the distal transverse colon and splenic flexure of the colon. IMPRESSION: 1. Mild thickening and pericolonic fat stranding at the distal transverse colon and splenic flexure of the colon. This favors a mild nonspecific colitis or diverticulitis. 2. No evidence for bowel obstruction. 3. Cholecystectomy. 4. Hysterectomy. 5. Trace bilateral pleural effusions. This has improved. Electronically signed by: Kranthi Mena M.D. 02/17/2017 12:59 PM Dictated Date/Time: 02/17/2017 12:51 PM
--- NOTE | 2017-02-17 13:59 | EMERGENCY ROOM VISIT NOTE ---
ED Visit Note First contact with patient: 11:37 Resident Physician Supervision Note: Dr. Raj Jeff was resident physician during care of patient. I separately evaluated patient and did history and exam. I discussed the case with the resident and generally agree with the findings and plan. 82 yr old pleasant female with history of partial colectomy, diverticulitis who notes some left sided abdominal discomfort over the last few days. She has been taking daily 325mg ASA for pain over the last week. Multiple large blood bowel movements this morning, including here in ED. She is not septic and at current time does not have evidence of acute anemia requiring transfusion. CT done revealing colitis. Unclear if infectious or other thus will defer abx tx to hospitalist as with her multiple bloody BMs I do not feel it is safe to discharge her home at this time without further monitoring. Diagnosis: Colitis GI Bleed Documented By: Beny Aguila MD
[2017-02-17] MEDS ORDERED: ONDANSETRON INJ 2 MG/ML 2 ML VIAL IV PRN (15:00)
[2017-02-17] MEDS ORDERED: HydrALAZINE HCL 20 MG/ML VIAL IM PRN (15:00)
[2017-02-17 16:20] VITALS: BP 126/82; PULSE 66; TEMP 36.7; O2SAT 92
[2017-02-17] MEDS: SODIUM CHLORIDE 0.9% 1000ML 1,000 ML IV SCH (16:46)
[2017-02-17] MEDS: PANTOprazole INJ 40 MG in SYRINGE 0 ML IV SCH ×2 (16:46→23:39)
--- NOTE | 2017-02-17 17:17 | History and Physical ---
History & Physical Date & Time of Service: February 17, 2017 at 17:00 Chief Complaint: Rectal Bleeding Primary Care Physician: Adriano Castellanos M.D. History of Present Illness Source: patient, family 82 year old female with a 1 day history of bright red blood per rectum Patient woke up this morning and found that she had bright red blood in her underwear. She then had 3 bowel movements this morning and they were all with only blood and no stool. The bowel movements were non painful and they were maroon in colour. Of note she had a couple similar bowel movements last week but didn't think it was anything as she ate a tomato earlier in the day. She started taking aspirin 325mg last week because she thought it was protective for her heart. She also had associated cramp left sided abdominal pain and diarrhea for a couple years. She denies any pain with bowel movements, nausea, vomiting, blood in urine, dysuria, bruising, fevers, night sweats, weight loss, fatigue, chest pain, palpitations, shortness of breath, or cough. She has a history of diverticulitis for which she had a hemicolectomy. Past Medical/Surgical History Medical Problems: (1) Diabetes Status: Chronic (2) Diverticulitis Status: Chronic (3) GERD (gastroesophageal reflux disease) Status: Chronic (4) Heart disease Status: Chronic (5) Hypertension Status: Chronic Surgical Problems: (1) History of cholecystectomy Status: Resolved (2) History of hysterectomy Status: Resolved (3) S/P kyphoplasty Status: Resolved Family History FHx: diabetes Social History Smoking Status: Never Smoker Alcohol Use: none Drug Use: none Marital Status: Housing status: lives with family Occupational Status: retired Immunizations History of Influenza Vaccine: Yes Influenza Vaccine Date: Jun 28, 2007 History of Tetanus Vaccine?: Unknown History of Pneumococcal: Yes Pneumococcal Date: Aug 04, 2007 History of Hepatitis B Vaccine: Unknown Multi-Drug Resistant Organisms History of MDRO: No Allergies Coded Allergies: Celecoxib (Verified Allergy, Severe, SX OF STROKE, FACIAL NUMBNESS, UNABLE TO SPEAK, 02/17/17) Tolerates aleve and aspirin Metronidazole (Verified Adverse Reaction, Mild, N/V, 02/17/17) Ciprofloxacin (Verified Adverse Reaction, Unknown, UPSET STOMACH, 02/17/17) Home Medications Scheduled Atorvastatin (Lipitor), 40 MG PO DAILY Calcium Carbonate (Calcium), 600 MG PO DAILY Carvedilol (Carvedilol), 12.5 MG PO BID Cholecalciferol (Vitamin D3), 1 TAB PO DAILY Cyanocobalamin (Vitamin B-12), 1,000 MCG PO QAM Docusate Sodium (Colace), 1 CAP PO BID Fentanyl (Fentanyl), 12 MCG TD Q72H Gabapentin (Neurontin), 300 MG PO TID Glipizide (Glipizide), 5 MG PO QAM Hydralazine Hcl (Apresoline), 25 MG PO BID Levothyroxine Sodium (Levothyroxine Sodium), 150 MCG PO QAM Lisinopril (Zestril), 10 MG PO DAILY Lutein-Zeaxanthin (Lutein W/Zeaxanthin), 1 TAB PO DAILY Misc Natural Products (Osteo Bi-Flex Advanced Do), 1 TAB PO QAM Multivitamins/Minerals (Mvi With Minerals), 1 TAB PO QAM Oxybutynin Chloride (Ditropan), 5 MG PO DAILY Scheduled PRN Acetaminophen (Tylenol), 1,000 MG PO TID PRN for Pain Review of Systems see HPI for ROS Physical Exam Vital Signs Date Time Temp Pulse Resp B/P Pulse Ox O2 Delivery O2 Flow Rate FiO2 02/17/17 16:03 36.7 64 17 180/83 95 02/17/17 15:49 180/83 02/17/17 15:49 Room Air 02/17/17 15:32 174/77 02/17/17 15:30 64 17 95 02/17/17 15:01 161/96 02/17/17 15:00 61 17 95 02/17/17 14:30 180/103 93 Room Air 02/17/17 13:30 66 18 165/91 93 Room Air 02/17/17 12:30 64 18 161/91 93 Room Air 02/17/17 12:25 65 02/17/17 11:27 36.7 71 18 161/90 96 Room Air General Appearance: WD/WN, no apparent distress Eyes: normal inspection, PERRL, sclerae normal Neck: no adenopathy, thyroid normal, no JVD Respiratory/Chest: chest non-tender, lungs clear, normal breath sounds Cardiovascular: regular rate, rhythm, no edema, no JVD, normal peripheral pulses Abdomen/GI: normal bowel sounds, soft, no organomegaly, + tenderness (tender in the left middle and left upper quadrant) Back: normal inspection, normal range of motion Extremities/Musculoskelatal: normal inspection, no calf tenderness, normal capillary refill Neurologic/Psych: alert, normal mood/affect, oriented x 3 Skin: normal color, warm/dry, no rash Diagnostics Laboratory Results Results Past 24 Hours Test 02/17/17 11:45 Range/Units White Blood Count 8.59 4.8-10.8 K/uL Red Blood Count 4.20 4.2-5.4 M/uL Hemoglobin 13.4 12.0-16.0 g/dL Hematocrit 41.2 37-47 % Mean Corpuscular Volume 98.1 80-100 fL Mean Corpuscular Hemoglobin 31.9 25-34 pg Mean Corpuscular Hemoglobin Concent 32.5 32-36 g/dl Platelet Count 208 130-400 K/uL Mean Platelet Volume 10.6 7.4-10.4 fL Neutrophils (%) (Auto) 61.5 % Lymphocytes (%) (Auto) 25.6 % Monocytes (%) (Auto) 8.1 % Eosinophils (%) (Auto) 4.4 % Basophils (%) (Auto) 0.2 % Neutrophils # (Auto) 5.27 1.4-6.5 K/uL Lymphocytes # (Auto) 2.20 1.2-3.4 K/uL Monocytes # (Auto) 0.70 0.11-0.59 K/uL Eosinophils # (Auto) 0.38 0-0.5 K/uL Basophils # (Auto) 0.02 0-0.2 K/uL RDW Standard Deviation 49.6 36.4-46.3 fL RDW Coefficient of Variation 13.9 11.5-14.5 % Immature Granulocyte % (Auto) 0.2 % Immature Granulocyte # (Auto) 0.02 0.00-0.02 K/uL Prothrombin Time 10.8 9.0-12.0 SECONDS Prothromb Time International Ratio 1.0 0.9-1.1 Sodium Level 146 136-145 mmol/L Potassium Level 4.0 3.5-5.1 mmol/L Chloride Level 111 98-107 mmol/L Carbon Dioxide Level 31 21-32 mmol/L Anion Gap 4.0 3-11 mmol/L Blood Urea Nitrogen 16 7-18 mg/dl Creatinine 1.20 0.60-1.20 mg/dl Estimated GFR () 48.1 Estimated GFR (Non- 41.5 BUN/Creatinine Ratio 13.2 10-20 Random Glucose 111 70-99 mg/dl Calcium Level 8.7 8.5-10.1 mg/dl Diagnostic Radiology ABDOMEN AND PELVIS CT WITH IV CONTRAST CT DOSE: 461.95 mGy.cm HISTORY: Blood in stool, abdominal tenderness TECHNIQUE: Multiaxial CT images of the abdomen and pelvis were performed following the use of intravenous contrast. COMPARISON STUDY: Abdomen and pelvis CT 06/11/2015. FINDINGS: Mild dependent changes seen within the lungs posteriorly. Pacemaker wires are present. Trace bilateral pleural effusions have improved. Left total hip arthroplasty. A T12 vertebroplasty. Cholecystectomy. The liver, spleen, and adrenal glands are unremarkable. The kidneys enhance normally. No hydronephrosis. Multiple punctate calcifications within the pancreas. This remains unchanged. No retroperitoneal lymphadenopathy. Hysterectomy. Bladder is now well-visualized but appears unremarkable. Colonic diverticulosis. No evidence for bowel obstruction. Mild thickening and pericolonic fat stranding at the distal transverse colon and splenic flexure of the colon. IMPRESSION: 1. Mild thickening and pericolonic fat stranding at the distal transverse colon and splenic flexure of the colon. This favors a mild nonspecific colitis or diverticulitis. 2. No evidence for bowel obstruction. 3. Cholecystectomy. 4. Hysterectomy. 5. Trace bilateral pleural effusions. This has improved. Impression Assessment and Plan 82 year old female with a history of hemicolectomy (due to diverticulitis) presenting to [facility] with a 1 day history of bright red blood per rectum after starting 325mg of aspirin last week. Blood [place] - CT abdomen: Mild thickening and pericolonic fat stranding at the distal transverse colonand splenic flexure of the colon. This favors a mild nonspecific colitis or diverticulitis. - NPO with sips and chips - trend Hgb q6 for 24 hours - pantoprazole 40mg bid IV - hold aspirin - check cbc, pt/inr in am HTN - hold carvedilol and lisinopril - hydralazine 10mg q4 for bp >160/100 Hypothyroidism - continue levothyroxine 75mcg IV HLD - hold atorvastatin T2DM - hold glipizide - ISS Peripheral neuropathy - hold Gabapentin Detrusor Instability - hold oxybutynin Code -DNR I agree with PA assessment and plan and have seen and examined pt myself VSS Labs reviewed Admitted with [facility], likely from diverticulitis CT abd/pelvis reviewed Follow H/H Pt pain improved at this time Cont NPO with sips and chips Cont to hold ASA Level of Care Med/Surg Advanced Directives Existing Living Will: No Existing Power of Imaging Science Professor: No Resuscitation Status DO NOT RESUSCITATE VTE Prophylaxis VTE Risk Assessment Done? Y/N: Yes Risk Level: Moderate
[2017-02-17] MEDS ORDERED: NURSING VERBAL MED ORDER ONE ×2 (18:30)
[2017-02-17] MEDS ORDERED: MoRPHine SULFATE 2 MG/ML CARP IV PRN (18:45)
[2017-02-17] MEDS ORDERED: FENTANYL 12 MCG/HR TDSY TD SCH (19:00)
[2017-02-17 20:22] VITALS: BP_SYST 126; BP_SYST 79; BP_DIAS 56; BP_DIAS 82; PULSE 66; PULSE 74; TEMP 36.4; TEMP 36.7; O2SAT 92; O2SAT 99
[2017-02-17 20:23] VITALS: BP 61/45; PULSE 76
[2017-02-17 20:24] VITALS: BP 106/69; PULSE 65
[2017-02-17 20:40] LABS: HEMATOCRIT 33.8 % (37-47)
[2017-02-17] MEDS ORDERED: SODIUM CHLORIDE 0.9% 1000ML 1,000 ML IV ONE (21:00)
[2017-02-17] MEDS: CHECK FENTANYL PATCH PLACEMENT SCH (23:40)
[2017-02-17 23:59] LABS: HEMATOCRIT 31.2 % (37-47)
[2017-02-18] VITALS (7 sets, daily range): BP systolic 106–147; BP diastolic 69–77; PULSE 65–76; TEMP 36.4–36.9; O2SAT 91–95; Ht 170.2 cm; Wt 75.0 kg
[2017-02-18] MEDS: SODIUM CHLORIDE 0.9% 1000ML 1,000 ML IV SCH ×3 (02:11→22:04)
[2017-02-18 04:13] LABS: BASO % 0.2 %; BASO ABS # 0.02 K/uL (0-0.2); COMPLETE YES; EOS % 2.6 %; HEMATOCRIT 27.7 % (37-47); LYMPH % 38.9 %; LYMPH ABS # 3.31 K/uL (1.2-3.4); MEAN CELL VOLUME 98.2 fL (80-100); MEAN CORPUSCULAR HEMOGLOBIN 32.6 pg (25-34); MEAN CORPUSCULAR HGB CONC 33.2 g/dl (32-36); MONO % 5.9 %; NEUT % 52.4 %; PLATELET COUNT 156 K/uL (130-400); RED BLOOD COUNT 2.82 M/uL (4.2-5.4)
[2017-02-18 04:22] LABS: INR 1.1 (0.9-1.1); PROTHROMBIN TIME (PATIENT) 11.8 SECONDS (9.0-12.0)
[2017-02-18 04:33] LABS: ALT/SGPT 13 U/L (12-78); AST/SGOT 15 U/L (15-37); BLOOD UREA NITROGEN 16 mg/dl (7-18); BUN/CREATININE RATIO 16.4 (10-20); CALCIUM 7.7 mg/dl (8.5-10.1); CARBON DIOXIDE 26 mmol/L (21-32); CHLORIDE 117 mmol/L (98-107); GLUCOSE 90 mg/dl (70-99); SODIUM 149 mmol/L (136-145)
[2017-02-18 04:35] LABS: ALKALINE PHOSPHATASE 57 U/L (45-117)
[2017-02-18] MEDS: CHECK FENTANYL PATCH PLACEMENT SCH ×2 (07:10→16:34)
[2017-02-18 08:15] LABS: HEMATOCRIT 29.6 % (37-47)
[2017-02-18] MEDS: PANTOprazole INJ 40 MG in SYRINGE 0 ML IV SCH ×2 (08:49→20:50)
[2017-02-18] MEDS: LEVOTHYROXINE SODIUM INJ 75 MCG in SYRINGE 0 ML IV SCH (08:49)
--- NOTE | 2017-02-18 09:50 | Progress Note ---
Progress Note Date of Service February 18, 2017. Progress Note GI quick note: Received consult to misael pt for rectal bleeding. Upon introducing myself and my service, pt reports that she "got into trouble" for using [facility] service. Reviewed her insurance ([employer]), checked w our schedulers - we would be able to accept pt's insurance and see her in clinic/ hospital but if she needs any procedure such as endoscopy she needs to have it done at [facility]. I informed this to pt but she would prefer to use other GI service. I gave her option of either [facility] or [facility], she chose [facility] service. I have contacted VANESA Ash from [facility] group about this pt.
--- NOTE | 2017-02-18 10:26 | Gastrointestinal Consultation ---
Gastrointestinal Consultation Date of Consultation: February 18, 2017 Attending Physician: Dr. Strickland Consulting Physician: Dr. Jones/VANESA Ash Reason for Consultation: Rectal bleeding History of Present Illness Patient is a 82 year old female with a history of diverticulitis s/p sigmoid resection in 2005 admitted to the hospital with bright red rectal bleeding beginning one day prior to arrival. She states she was having loose stools at that time as well and nausea without vomiting. No significant abdominal pain but does report tenderness with abdominal palpation. No fever or chills. The patient does report a history of chronic diarrhea since her colon surgery. Her hemoglobin on arrival was noted to be 11.0 and 33.8 with a drop to 9.2 and 27.7 this morning. She does report, however, that she has not passed any blood since approximately midnight last evening. CT imaging was obtained and demonstrated "mild thickening and pericolonic fat stranding at the distal transverse colon and splenic flexure". The diagnostic considerations include non-specific colitis vs diverticulitis. She has been placed on NPO status. Of note, she did recently start 325 mg aspirin daily. Past Medical/Surgical History Medical Problems: (1) Diverticulitis Status: Chronic (2) Fall Status: Acute (3) Laceration of left ear Status: Acute (4) Minor head injury Status: Acute (5) Multiple contusions Status: Acute (6) Multiple transverse process fractures Status: Acute (7) Rectal bleeding Status: Acute (8) Scalp laceration Status: Acute Past Surgical History: 1. Cholecystectomy 2. Hysterectomy 3. Kyphoplasty Family History FHx: diabetes Negative for GI malignancy or IBD Social History Smoking Status: Never Smoker Alcohol Use: none Drug Use: none Marital Status: Housing Status: lives with family Occupation Status: retired Allergies Coded Allergies: Celecoxib (Verified Allergy, Severe, SX OF STROKE, FACIAL NUMBNESS, UNABLE TO SPEAK, 02/17/17) Tolerates aleve and aspirin Metronidazole (Verified Adverse Reaction, Mild, N/V, 02/17/17) Ciprofloxacin (Verified Adverse Reaction, Unknown, UPSET STOMACH, 02/17/17) Current Medications Home Meds and Scripts Medications Dose Route/Sig Max Daily Dose Days Date Category Dose Instructions Vitamin D3 (Cholecalciferol) 1,000 Unit Tab 1 Tab PO DAILY 90 02/17/17 Reported Calcium (Calcium Carbonate) 600 Mg Tab 600 Mg PO DAILY 02/17/17 Reported Ditropan (Oxybutynin Chloride) 5 Mg Tab 5 Mg PO DAILY 02/17/17 Reported Zestril (Lisinopril) 10 Mg Tab 10 Mg PO DAILY 02/17/17 Reported Lipitor (Atorvastatin) 40 Mg Tab 40 Mg PO DAILY 02/17/17 Reported Apresoline (Hydralazine Hcl) 50 Mg Tab 25 Mg PO BID 02/17/17 Reported Lutein W/Zeaxanthin (Lutein-Zeaxanthin) 1 Tab Tab 1 Tab PO DAILY 02/17/17 Reported Fentanyl 12 Mcg Tdsy 12 Mcg TD Q72H 3 09/26/[address] 1 patch on skin, remove after 72 hours Colace (Docusate Sodium) 100 Mg Cap 1 Cap PO BID 15 10/26/15 Reported Carvedilol 12.5 Mg Tab 12.5 Mg PO BID 10/26/15 Reported Tylenol (Acetaminophen) 500 Mg Tab 1,000 Mg PO TID PRN 06/11/15 Reported Neurontin (Gabapentin) 300 Mg Cap 300 Mg PO TID 05/23/15 Reported Osteo Bi-Flex Advanced Do (Misc Natural Products) 1 Tab Tab 1 Tab PO QAM 05/10/15 Reported Mvi With Minerals (Multivitamins/Minerals) Tab 1 Tab PO QAM 09/11/14 Reported Glipizide 5 Mg Tab 5 Mg PO QAM 05/24/14 Reported Vitamin B-12 (Cyanocobalamin) 1,000 Mcg Sub 1,000 Mcg PO QAM 09/21/13 Reported Levothyroxine Sodium 150 Mcg Tab 150 Mcg PO QAM 09/21/13 Reported Review of Systems Constitutional: + see HPI Eyes: No problem reported ENT: No problem reported Respiratory: No cough, No shortness of breath Cardiac: No chest pain, No palpitations Abdomen: + see HPI Musculoskeletal: No problem reported Female : + urinary frequency Neuro: No problem reported Psych: No problem reported Skin: No problem reported Physical Exam Date Time Temp Pulse Resp B/P Pulse Ox O2 Delivery O2 Flow Rate FiO2 02/18/17 07:32 36.8 76 16 135/72 91 Room Air 02/18/17 04:45 65 16 106/69 93 Room Air 02/18/17 00:00 Room Air 02/18/17 00:00 36.7 65 18 123/77 92 Room Air 02/17/17 20:24 65 106/69 02/17/17 20:23 76 61/45 02/17/17 20:22 36.4 74 20 79/56 99 02/17/17 16:20 36.7 66 17 126/82 92 Room Air 02/17/17 16:03 36.7 64 17 180/83 95 02/17/17 15:49 180/83 02/17/17 15:49 Room Air 02/17/17 15:32 174/77 02/17/17 15:30 64 17 95 02/17/17 15:01 161/96 02/17/17 15:00 61 17 95 02/17/17 14:30 180/103 93 Room Air 02/17/17 13:30 66 18 165/91 93 Room Air 02/17/17 12:30 64 18 161/91 93 Room Air 02/17/17 12:25 65 02/17/17 11:27 36.7 71 18 161/90 96 Room Air General Appearance: WD/WN, no apparent distress Eyes: normal inspection Neck: supple Respiratory/Chest: lungs clear, normal breath sounds, no respiratory distress Cardiovascular: regular rate, rhythm, no gallop, no murmur Abdomen: normal bowel sounds, soft, + tenderness (left mid abdomen and LLQ) Extremities: no pedal edema Neurologic/Psych: alert, normal mood/affect, oriented x 3 Skin: warm/dry Laboratory Results Last 24 Hours Test 02/17/17 11:45 02/17/17 17:22 02/17/17 20:31 02/17/17 23:45 White Blood Count 8.59 K/uL Red Blood Count 4.20 M/uL Hemoglobin 13.4 g/dL 11.0 g/dL 10.1 g/dL Hematocrit 41.2 % 33.8 % 31.2 % Mean Corpuscular Volume 98.1 fL Mean Corpuscular Hemoglobin 31.9 pg Mean Corpuscular Hemoglobin Concent 32.5 g/dl Platelet Count 208 K/uL Mean Platelet Volume 10.6 fL Neutrophils (%) (Auto) 61.5 % Lymphocytes (%) (Auto) 25.6 % Monocytes (%) (Auto) 8.1 % Eosinophils (%) (Auto) 4.4 % Basophils (%) (Auto) 0.2 % Neutrophils # (Auto) 5.27 K/uL Lymphocytes # (Auto) 2.20 K/uL Monocytes # (Auto) 0.70 K/uL Eosinophils # (Auto) 0.38 K/uL Basophils # (Auto) 0.02 K/uL RDW Standard Deviation 49.6 fL RDW Coefficient of Variation 13.9 % Immature Granulocyte % (Auto) 0.2 % Immature Granulocyte # (Auto) 0.02 K/uL Prothrombin Time 10.8 SECONDS Prothromb Time International Ratio 1.0 Sodium Level 146 mmol/L Potassium Level 4.0 mmol/L Chloride Level 111 mmol/L Carbon Dioxide Level 31 mmol/L Anion Gap 4.0 mmol/L Blood Urea Nitrogen 16 mg/dl Creatinine 1.20 mg/dl Estimated GFR () 48.1 Estimated GFR (Non- 41.5 BUN/Creatinine Ratio 13.2 Random Glucose 111 mg/dl Calcium Level 8.7 mg/dl Bedside Glucose 92 mg/dl Test 02/18/17 04:05 02/18/17 07:45 02/18/17 07:55 White Blood Count 8.50 K/uL Red Blood Count 2.82 M/uL Hemoglobin 9.2 g/dL 9.4 g/dL Hematocrit 27.7 % 29.6 % Mean Corpuscular Volume 98.2 fL Mean Corpuscular Hemoglobin 32.6 pg Mean Corpuscular Hemoglobin Concent 33.2 g/dl Platelet Count 156 K/uL Mean Platelet Volume 10.0 fL Neutrophils (%) (Auto) 52.4 % Lymphocytes (%) (Auto) 38.9 % Monocytes (%) (Auto) 5.9 % Eosinophils (%) (Auto) 2.6 % Basophils (%) (Auto) 0.2 % Neutrophils # (Auto) 4.45 K/uL Lymphocytes # (Auto) 3.31 K/uL Monocytes # (Auto) 0.50 K/uL Eosinophils # (Auto) 0.22 K/uL Basophils # (Auto) 0.02 K/uL RDW Standard Deviation 50.9 fL RDW Coefficient of Variation 14.2 % Immature Granulocyte % (Auto) 0.0 % Immature Granulocyte # (Auto) 0.00 K/uL Prothrombin Time 11.8 SECONDS Prothromb Time International Ratio 1.1 Sodium Level 149 mmol/L Potassium Level 4.0 mmol/L Chloride Level 117 mmol/L Carbon Dioxide Level 26 mmol/L Anion Gap 6.0 mmol/L Blood Urea Nitrogen 16 mg/dl Creatinine 1.00 mg/dl Estimated GFR () 59.9 Estimated GFR (Non- 51.7 BUN/Creatinine Ratio 16.4 Random Glucose 90 mg/dl Lactic Acid Level 0.6 mmol/L Calcium Level 7.7 mg/dl Total Bilirubin 0.7 mg/dl Aspartate Amino Transf (AST/SGOT) 15 U/L Alanine Aminotransferase (ALT/SGPT) 13 U/L Alkaline Phosphatase 57 U/L Total Protein 5.3 gm/dl Albumin 2.7 gm/dl Globulin 2.6 gm/dl Albumin/Globulin Ratio 1.0 Bedside Glucose 91 mg/dl Impression Patient is a 82 year old female with a history of diverticulitis status post sigmoid resection admitted with bright red rectal bleeding, acute blood loss anemia and abnormal CT imaging suggestive of non-specific colitis vs diverticulitis. Plan 1. Clear liquid diet for now. If clinically improving, can advance slowly to low residue diet. 2. Start Augmentin 875 mg PO every 12 hours x 10 days as she is allergic to Ciprofloxacin and Metronidazole. 3. Continue to trend H&H but should stabilize. She has not passed any blood in nearly 12 hours. 4. Supportive measures per primary team. Thank you for allowing us to participate in the care of this pleasant patient. If you have any questions or concerns, please do not hesitate to contact us. Agree with VANESA Ash as above Abd: Soft, Tender LLQ, ND, +BS Continue current therapy Continue supportive care
[2017-02-18 12:41] LABS: HEMATOCRIT 30.7 % (37-47)
[2017-02-18] MEDS ORDERED: AMOXICILLIN/CLAVULANATE TAB 875 MG TAB PO ONE (14:00)
--- NOTE | 2017-02-18 15:00 | Family Medicine Progress Note ---
Progress Note Date of Service February 18, 2017. Subjective Pt evaluation today including: conversation w/ patient, conversation w/ family , physical exam, chart review, lab review, review of studies, conversation w/ solar consultant, review of inpatient medication list Pain: mild PO Intake: liquid diet Voiding: no voiding problems, no incontinence Patient with no acute events overnight She had her last episode of blood bowel movement at 11pm yesterday evening. Since then she has not had any further bm. Her hgb decreased to 9.2 this morning and therefore GI was consulted. Patient still having some mild crampy abdominal pain in the LUQ. She is also feeling fatigued Patient denies any fevers, chills, night sweats, nausea, vomiting, chest pain, shortness of breath, cough, palpitations, headache, pre syncope. Additional Comments: Please see above for ROS Medications Current Inpatient Medications Medications (Trade) Dose Ordered Sig/Ailin Route Start Time Stop Time Status Last Admin Dose Admin Ioversol (Optiray 320) 125 ml UD PRN IV 02/17/17 12:30 02/21/17 12:29 Ondansetron HCl 4 mg 4 mg Q6H PRN IV 02/17/17 15:00 03/19/17 14:59 02/17/17 18:13 4 MG Pantoprazole Sodium/Syringe (Protonix Inj/ Syringe) 10 ml @ 5 mls/min DAILY@ IV 02/17/17 16:00 03/19/17 15:59 02/18/17 08:49 5 MLS/MIN Hydralazine HCl 10 mg 10 mg Q4 PRN IM 02/17/17 15:00 03/19/17 14:59 Levothyroxine Sodium 75 mcg/ Syringe 3.75 ml @ 2 mls/min DAILY@09 IV 02/18/17 09:00 03/20/17 08:59 02/18/17 08:49 2 MLS/MIN Sodium Chloride (Nss 1000ml) 1,000 ml @ 100 mls/hr Q10H IV 02/17/17 16:00 03/19/17 15:59 02/18/17 11:58 100 MLS/HR Fentanyl (Duragesic Patch) 12 mcg Q3D@1900 TD 02/17/17 19:00 03/03/17 18:59 02/17/17 20:15 12 MCG Miscellaneous (Fentanyl Patch Remove & Waste) 1 ea Q3D@1859 N/A 02/20/17 18:59 03/22/17 18:58 Miscellaneous Information (Check Fentanyl Patch Placement) 1 ea QS N/A 02/18/17 00:00 03/20/17 00:00 02/18/17 07:10 1 EA Morphine Sulfate (MoRPHine SULFATE INJ) 2 mg Q4H PRN IV 02/17/17 18:45 03/03/17 18:44 Amoxicillin/ Clavulanate Potassium (Augmentin Tab) 875 mg BIDM PO 02/18/17 17:00 02/28/17 16:59 Zolpidem Tartrate (Ambien Tab) 5 mg HS PRN PO 02/18/17 18:00 03/20/17 17:59 Objective Vital Signs Date Time Temp Pulse Resp B/P Pulse Ox O2 Delivery O2 Flow Rate FiO2 02/18/17 07:32 36.8 76 16 135/72 91 Room Air 02/18/17 04:45 65 16 106/69 93 Room Air 02/18/17 00:00 Room Air 02/18/17 00:00 36.7 65 18 123/77 92 Room Air 02/17/17 20:24 65 106/69 02/17/17 20:23 76 61/45 02/17/17 20:22 36.4 74 20 79/56 99 02/17/17 16:20 36.7 66 17 126/82 92 Room Air 02/17/17 16:03 36.7 64 17 180/83 95 02/17/17 15:49 180/83 02/17/17 15:49 Room Air 02/17/17 15:32 174/77 02/17/17 15:30 64 17 95 02/17/17 15:01 161/96 02/17/17 15:00 61 17 95 Physical Exam General Appearance: WD/WN, no apparent distress Neck: supple, no carotid bruits, trachea midline Respiratory/Chest: lungs clear, normal breath sounds, no accessory muscle use Cardiovascular: regular rate, rhythm, no edema, no murmur Abdomen: normal bowel sounds, no organomegaly, no pulsatile mass, + tenderness (left middle and LUQ) Extremities: non-tender, no pedal edema, no calf tenderness Neurologic/Psychiatric: alert, normal mood/affect, oriented x 3 Skin: normal color, warm/dry, no rash Laboratory Results Results Past 24 Hours Test 02/17/17 17:22 02/17/17 20:31 02/17/17 23:45 02/18/17 04:05 Range/Units Bedside Glucose 92 70-90 mg/dl Hemoglobin 11.0 10.1 9.2 12.0-16.0 g/dL Hematocrit 33.8 31.2 27.7 37-47 % White Blood Count 8.50 4.8-10.8 K/uL Red Blood Count 2.82 4.2-5.4 M/uL Mean Corpuscular Volume 98.2 80-100 fL Mean Corpuscular Hemoglobin 32.6 25-34 pg Mean Corpuscular Hemoglobin Concent 33.2 32-36 g/dl Platelet Count 156 130-400 K/uL Mean Platelet Volume 10.0 7.4-10.4 fL Neutrophils (%) (Auto) 52.4 % Lymphocytes (%) (Auto) 38.9 % Monocytes (%) (Auto) 5.9 % Eosinophils (%) (Auto) 2.6 % Basophils (%) (Auto) 0.2 % Neutrophils # (Auto) 4.45 1.4-6.5 K/uL Lymphocytes # (Auto) 3.31 1.2-3.4 K/uL Monocytes # (Auto) 0.50 0.11-0.59 K/uL Eosinophils # (Auto) 0.22 0-0.5 K/uL Basophils # (Auto) 0.02 0-0.2 K/uL RDW Standard Deviation 50.9 36.4-46.3 fL RDW Coefficient of Variation 14.2 11.5-14.5 % Immature Granulocyte % (Auto) 0.0 % Immature Granulocyte # (Auto) 0.00 0.00-0.02 K/uL Prothrombin Time 11.8 9.0-12.0 SECONDS Prothromb Time International Ratio 1.1 0.9-1.1 Sodium Level 149 136-145 mmol/L Potassium Level 4.0 3.5-5.1 mmol/L Chloride Level 117 98-107 mmol/L Carbon Dioxide Level 26 21-32 mmol/L Anion Gap 6.0 3-11 mmol/L Blood Urea Nitrogen 16 7-18 mg/dl Creatinine 1.00 0.60-1.20 mg/dl Estimated GFR () 59.9 Estimated GFR (Non- 51.7 BUN/Creatinine Ratio 16.4 10-20 Random Glucose 90 70-99 mg/dl Lactic Acid Level 0.6 0.4-2.0 mmol/L Calcium Level 7.7 8.5-10.1 mg/dl Total Bilirubin 0.7 0.2-1 mg/dl Aspartate Amino Transf (AST/SGOT) 15 15-37 U/L Alanine Aminotransferase (ALT/SGPT) 13 12-78 U/L Alkaline Phosphatase 57 45-117 U/L Total Protein 5.3 6.4-8.2 gm/dl Albumin 2.7 3.4-5.0 gm/dl Globulin 2.6 2.5-4.0 gm/dl Albumin/Globulin Ratio 1.0 0.9-2 Test 02/18/17 07:45 02/18/17 07:55 02/18/17 11:13 02/18/17 12:20 Range/Units Bedside Glucose 91 90 70-90 mg/dl Hemoglobin 9.4 10.0 12.0-16.0 g/dL Hematocrit 29.6 30.7 37-47 % Assessment and Plan 82 year old female with a history of hemicolectomy (due to diverticulitis) presenting to [facility] with a 1 day history of bright red blood per rectum after starting 325mg of aspirin last week. Blood [place] - CT abdomen: Mild thickening and pericolonic fat stranding at the distal transverse colon and splenic flexure of the colon. This favors a mild nonspecific colitis or diverticulitis. - diet advanced to liquid diet - Hgb stable at 10.0, continue to trend - pantoprazole 40mg bid IV - hold aspirin - GI consult, suggest start augmentin PO q12 Acute blood loss anemia - monitor h/h. so far stable - transfuse as needed HTN - hold carvedilol and lisinopril - hydralazine 10mg q4 for bp >160/100 Hypothyroidism - continue levothyroxine 75mcg IV HLD - hold atorvastatin T2DM - hold glipizide - ISS Peripheral neuropathy - hold Gabapentin Detrusor Instability - hold oxybutynin Code -DNR Continued [facility] stay due to: home environment unsafe for pt Discharge planning: home Reviewed: Pt Seen/Exam by Me History no further bleeding Constitutional: denies: fever Respiratory: negative: short of breath Cardiovascular: denies chest pain Gastrointestinal/Abdominal: negative: abdominal pain General Appearance: no apparent distress Respiratory: lungs clear, no respiratory distress Cardiovascular: regular rate, rhythm Gastrointestinal: normal bowel sounds, non tender, soft Neurologic/Psychiatric: alert, oriented x 3 Skin Characteristics: warm/dry Assessment/Plan I have reviewed the medical record and performed a history and physical examination of this patient today. I have discussed the case with Dr. Hernandez. The above note reflects my findings, conclusions, and recommendations.
[2017-02-18] MEDS ORDERED: ZOLPIDEM TARTRATE 5 MG TAB PO PRN (18:00)
[2017-02-18] MEDS: AMOXICILLIN/CLAVULANATE TAB 875 MG TAB PO SCH (20:48)
[2017-02-19] MEDS: CHECK FENTANYL PATCH PLACEMENT SCH ×4 (04:28→23:40)
[2017-02-19 07:02] VITALS: BP 139/80; PULSE 75; TEMP 36.7; O2SAT 92
[2017-02-19 07:11] LABS: HEMATOCRIT 28.9 % (37-47); MEAN CORPUSCULAR HEMOGLOBIN 31.5 pg (25-34); MEAN CORPUSCULAR HGB CONC 32.2 g/dl (32-36); MEAN PLATELET VOLUME 10.1 fL (7.4-10.4); PLATELET COUNT 159 K/uL (130-400); RED BLOOD COUNT 2.95 M/uL (4.2-5.4)
[2017-02-19 07:37] LABS: BLOOD UREA NITROGEN 11 mg/dl (7-18); BUN/CREATININE RATIO 11.3 (10-20); CARBON DIOXIDE 26 mmol/L (21-32); CHLORIDE 113 mmol/L (98-107); GLUCOSE 91 mg/dl (70-99); POTASSIUM 3.6 mmol/L (3.5-5.1); SODIUM 145 mmol/L (136-145)
[2017-02-19] MEDS ORDERED: ONDANSETRON INJ 2 MG/ML 2 ML VIAL IV STA (08:45)
[2017-02-19] MEDS ORDERED: MoRPHine SULFATE 2 MG/ML CARP IV STA (08:46)
[2017-02-19] MEDS: PANTOprazole SOD 40 MG TAB PO SCH ×2 (09:03→20:45)
[2017-02-19] MEDS: AMOXICILLIN/CLAVULANATE TAB 875 MG TAB PO SCH ×2 (09:04→17:48)
[2017-02-19] MEDS: LEVOTHYROXINE SODIUM INJ 75 MCG in SYRINGE 0 ML IV SCH (09:07)
[2017-02-19] MEDS: SODIUM CHLORIDE 0.9% 1000ML 1,000 ML IV SCH ×2 (09:12→17:53)
[2017-02-19] MEDS ORDERED: NURSING VERBAL MED ORDER ONE ×2 (09:30→23:45)
[2017-02-19] MEDS ORDERED: FENTANYL 12 MCG/HR TDSY TD SCH (10:00)
--- NOTE | 2017-02-19 11:37 | Family Medicine Progress Note ---
Progress Note Date of Service February 19, 2017. Subjective Pt evaluation today including: conversation w/ patient, physical exam, conversation w/ men's custom hair piece consultant, review of inpatient medication list Pain: moderate, lower back and abdomen PO Intake: minimal, feeling nauseated patient with two more bright red bowel movements yesterday evening, was mixed in with stool and covered the bowl. The bowel movements were non painful and only occurred on two occasions yesterday evening. Her hgb has stabilized and she is hemodynamically stable. She is feeling more fatigued today and is feeling nauseated with a decreased appetite. She does not even feel like eating her liquid diet. She is still having some mild abdominal pain on the left side. She denies any diarrhea, constipation, vomiting, fevers, night sweats chills, chest pain, palpitations or shortness of breath. Additional Comments: Please see above note for ROS Medications Current Inpatient Medications Medications (Trade) Dose Ordered Sig/Ailin Route Start Time Stop Time Status Last Admin Dose Admin Ioversol (Optiray 320) 125 ml UD PRN IV 02/17/17 12:30 02/21/17 12:29 Ondansetron HCl (Zofran Inj) 4 mg Q6H PRN IV 02/17/17 15:00 03/19/17 14:59 02/17/17 18:13 4 MG Hydralazine HCl 10 mg 10 mg Q4 PRN IM 02/17/17 15:00 03/19/17 14:59 Levothyroxine Sodium 75 mcg/ Syringe 3.75 ml @ 2 mls/min DAILY@09 IV 02/18/17 09:00 03/20/17 08:59 02/19/17 09:07 2 MLS/MIN Sodium Chloride (Nss 1000ml) 1,000 ml @ 100 mls/hr Q10H IV 02/17/17 16:00 03/19/17 15:59 02/19/17 09:12 100 MLS/HR Miscellaneous Information (Check Fentanyl Patch Placement) 1 ea QS N/A 02/18/17 00:00 03/20/17 00:00 02/19/17 04:28 1 EA Morphine Sulfate (MoRPHine SULFATE INJ) 2 mg Q4H PRN IV 02/17/17 18:45 03/03/17 18:44 Amoxicillin/ Clavulanate Potassium (Augmentin Tab) 875 mg BIDM PO 02/18/17 17:00 02/28/17 16:59 02/19/17 09:04 875 MG Zolpidem Tartrate (Ambien Tab) 5 mg HS PRN PO 02/18/17 18:00 03/20/17 17:59 02/18/17 23:33 5 MG Pantoprazole Sodium (Protonix Tab) 40 mg BID PO 02/19/17 09:00 03/19/17 15:59 02/19/17 09:03 40 MG Fentanyl (Duragesic Patch) 12 mcg Q3D@1000 TD 02/19/17 10:00 03/05/17 09:59 02/19/17 10:22 12 MCG Miscellaneous (Fentanyl Patch Remove & Waste) 1 ea Q3D@1000 N/A 02/22/17 10:00 03/24/17 09:59 Objective Vital Signs Date Time Temp Pulse Resp B/P Pulse Ox O2 Delivery O2 Flow Rate FiO2 02/19/17 08:00 Room Air 02/19/17 07:02 36.7 75 18 139/80 92 Room Air 02/19/17 00:00 Room Air 02/18/17 23:45 36.8 74 20 147/77 95 Room Air 02/18/17 20:00 Room Air 02/18/17 17:25 36.4 75 20 118/72 92 Room Air 02/18/17 16:00 Room Air 02/18/17 15:05 36.9 71 16 137/72 91 Room Air Physical Exam General Appearance: WD/WN, + mild distress, + pertinent finding (appears tired) Eyes: normal inspection, PERRL, sclerae normal ENT: hearing grossly normal, pharynx normal Respiratory/Chest: chest non-tender, lungs clear, normal breath sounds Cardiovascular: regular rate, rhythm, no edema, no murmur Abdomen: normal bowel sounds, soft, + tenderness (mild tenderness in Left middle quadrant and left upper quadrant) Neurologic/Psychiatric: alert, normal mood/affect, oriented x 3 Skin: normal color, warm/dry, no rash Laboratory Results Results Past 24 Hours Test 02/18/17 12:20 02/18/17 16:05 02/18/17 20:30 02/19/17 06:44 Range/Units Hemoglobin 10.0 8.6 9.3 12.0-16.0 g/dL Hematocrit 30.7 27.0 28.9 37-47 % Bedside Glucose 92 70-90 mg/dl White Blood Count 8.00 4.8-10.8 K/uL Red Blood Count 2.95 4.2-5.4 M/uL Mean Corpuscular Volume 98.0 80-100 fL Mean Corpuscular Hemoglobin 31.5 25-34 pg Mean Corpuscular Hemoglobin Concent 32.2 32-36 g/dl RDW Standard Deviation 50.0 36.4-46.3 fL RDW Coefficient of Variation 14.0 11.5-14.5 % Platelet Count 159 130-400 K/uL Mean Platelet Volume 10.1 7.4-10.4 fL Sodium Level 145 136-145 mmol/L Potassium Level 3.6 3.5-5.1 mmol/L Chloride Level 113 98-107 mmol/L Carbon Dioxide Level 26 21-32 mmol/L Anion Gap 6.0 3-11 mmol/L Blood Urea Nitrogen 11 7-18 mg/dl Creatinine 1.00 0.60-1.20 mg/dl Estimated GFR () 59.9 Estimated GFR (Non- 51.7 BUN/Creatinine Ratio 11.3 10-20 Random Glucose 91 70-99 mg/dl Calcium Level 8.0 8.5-10.1 mg/dl Test 02/19/17 07:12 Range/Units Bedside Glucose 98 70-90 mg/dl Assessment and Plan 82 year old female with a history of hemicolectomy (due to diverticulitis) presenting to [facility] with a 1 day history of bright red blood per rectum after starting 325mg of aspirin last week. Blood [place] - CT abdomen: Mild thickening and pericolonic fat stranding at the distal transverse colon and splenic flexure of the colon. This favors a mild nonspecific colitis or diverticulitis. - diet advanced to liquid diet-----> will talk to GI to decide whether or not to hold off on diet today as she had further bright bleeding per rectum - Hgb stable at 9.3, continue to trend - pantoprazole 40mg bid IV - hold aspirin - GI consult, suggest start augmentin PO q12 Acute blood loss anemia - monitor h/h. so far stable - transfuse as needed for <8 HTN - hold carvedilol and lisinopril - hydralazine 10mg q4 for bp >160/100 Hypothyroidism - continue levothyroxine 75mcg IV HLD - hold atorvastatin T2DM - hold glipizide - ISS Peripheral neuropathy - hold Gabapentin Detrusor Instability - hold oxybutynin Code -DNR Continued [facility] stay due to: multiple IV medications needed, home environment unsafe for pt Reviewed: Pt Seen/Exam by Me History had rectal bleeding last night. thinks it was lot but the nurse who saw felt it wasn't too much abdomen feels sore. also having pain in the back of left flank Constitutional: denies: fever Respiratory: negative: short of breath Cardiovascular: denies chest pain General Appearance: mild distress Respiratory: lungs clear, no respiratory distress Cardiovascular: regular rate, rhythm Gastrointestinal: normal bowel sounds, soft, tenderness (diffuse) Neurologic/Psychiatric: alert, oriented x 3 Skin Characteristics: warm/dry Assessment/Plan I have reviewed the medical record and performed a history and physical examination of this patient today. I have discussed the case with Dr. Hernandez. The above note reflects my findings, conclusions, and recommendations.
[2017-02-19 15:42] VITALS: BP 161/76; PULSE 71; TEMP 36.7; O2SAT 93
[2017-02-19 23:01] VITALS: BP 154/90; PULSE 70; TEMP 36.6; O2SAT 91
[2017-02-19] MEDS: ACETAMINOPHEN 325 MG TAB PO PRN (23:59)
[2017-02-20] MEDS: SODIUM CHLORIDE 0.9% 1000ML 1,000 ML IV SCH ×2 (04:00→14:00)
[2017-02-20 07:16] LABS: HEMATOCRIT 26.3 % (37-47); MEAN CELL VOLUME 97.8 fL (80-100); MEAN CORPUSCULAR HGB CONC 32.7 g/dl (32-36); MEAN PLATELET VOLUME 10.4 fL (7.4-10.4); PLATELET COUNT 127 K/uL (130-400); RED BLOOD COUNT 2.69 M/uL (4.2-5.4); WHITE BLOOD COUNT 6.86 K/uL (4.8-10.8)
[2017-02-20 07:23] VITALS: BP 147/74; PULSE 70; TEMP 36.7; O2SAT 92
[2017-02-20 07:28] LABS: INR 1.1 (0.9-1.1); PROTHROMBIN TIME (PATIENT) 11.7 SECONDS (9.0-12.0)
[2017-02-20 07:57] LABS: BLOOD UREA NITROGEN 7 mg/dl (7-18); BUN/CREATININE RATIO 8.1 (10-20); CALCIUM 7.8 mg/dl (8.5-10.1); CARBON DIOXIDE 25 mmol/L (21-32); CHLORIDE 113 mmol/L (98-107); GLUCOSE 80 mg/dl (70-99); POTASSIUM 3.4 mmol/L (3.5-5.1); SODIUM 146 mmol/L (136-145)
[2017-02-20] MEDS: LEVOTHYROXINE SODIUM INJ 75 MCG in SYRINGE 0 ML IV SCH (08:36)
[2017-02-20] MEDS: AMOXICILLIN/CLAVULANATE TAB 875 MG TAB PO SCH (08:38)
[2017-02-20] MEDS: ACETAMINOPHEN 325 MG TAB PO PRN (08:38)
[2017-02-20] MEDS: PANTOprazole SOD 40 MG TAB PO SCH (08:38)
[2017-02-20] MEDS: CHECK FENTANYL PATCH PLACEMENT SCH (08:38)
--- NOTE | 2017-02-20 14:36 | Discharge Instructions ---
Discharge Instructions Date of Service Feb 20, 2017. Admission Reason for Admission: Rectal Bleeding Discharge Discharge Diagnosis / Problem: Rectal Bleeding Discharge Goals Goal(s): Improve function, Improve disease control Activity Recommendations Activity Limitations: resume your previous activity . Instructions / Follow-Up Instructions / Follow-Up You were found to have anemia due to your bleeding Please follow up with a family doctor early next week for further management Please stop taking aspirin and do not take any acetaminophen for the next two weeks If you have large amount of worsening bleeding please come back to the emergency department You will need repeat blood work with your family doctor to make sure your Hgb ( red blood cells) levels have risen Current Hospital Diet Patient's current hospital diet: N/A Discharge Diet Recommended Diet: Regular Diet Pending Studies Studies pending at discharge: no Laboratory Results Hemoglobin A1c Test 01/31/17 12:10 Range/Units Estimated Average Glucose 120 mg/dl Hemoglobin A1c 5.8 H 4.5-5.6 % Lipid Panel Test 01/31/17 12:10 Range/Units Triglycerides Level 129 0-150 mg/dl Cholesterol Level 159 0-200 mg/dl HDL Cholesterol 51 mg/dl Cholesterol/HDL Ratio 3.1 LDL Cholesterol, Calculated 82 mg/dl Medical Emergencies . Who to Call and When: Medical Emergencies: If at any time you feel your situation is an emergency, please call 911 immediately. . Non-Emergent Contact Non-Emergency issues call your: Primary Care Provider . . "Provider Documentation" section prepared by Beny Hernandez. . VTE Core Measure Inpt VTE Proph given/why not?: Contraindicated
[2017-02-20] MEDS ORDERED: AMOX1TAB43 PO (14:42)
[2017-02-20] MEDS ORDERED: PANT40TA PO (14:46)
--- NOTE | 2017-02-20 14:48 | Discharge Summary ---
Discharge Summary Date of Service Feb 20, 2017. (Beny Hernandez MD) Discharge Summary Admission Date: February 17, 2017 at 15:05 Discharge Date: Feb 20, 2017 Discharge Disposition: Home Principal Diagnosis: Bleeding per rectum Problems/Secondary Diagnoses: (1) Diverticulitis Status: Chronic Immunizations: Have You Had Influenza Vaccine: Yes Influenza Vaccine Date: Jun 28, 2007 History of Tetanus Vaccine?: Unknown History of Pneumococcal: Yes Pneumococcal Date: Aug 04, 2007 History of Hepatitis B Vaccine: Unknown Consultations: GI (Beny Hernandez MD) Medication Reconciliation Continued Medications: Atorvastatin (Lipitor) 40 Mg Tab 40 MG PO DAILY, TAB Calcium Carbonate (Calcium) 600 Mg Tab 600 MG PO DAILY Carvedilol (Carvedilol) 12.5 Mg Tab 12.5 MG PO BID, #60 Cholecalciferol (Vitamin D3) 1,000 Unit Tab 1 TAB PO DAILY for 90 Days, #90 TAB 3 Refills Cyanocobalamin (Vitamin B-12) 1,000 Mcg Sub 1000 MCG PO QAM Docusate Sodium (Colace) 100 Mg Cap 1 CAP PO BID for 15 Days, #30 CAP Fentanyl (Fentanyl) 12 Mcg Tdsy 12 MCG TD Q72H for 3 Days, #[address] 1 patch on skin, remove after 72 hours Gabapentin (Neurontin) 300 Mg Cap 300 MG PO TID, CAP Glipizide (Glipizide) 5 Mg Tab 5 MG PO QAM Hydralazine Hcl (Apresoline) 50 Mg Tab 25 MG PO BID, TAB Levothyroxine Sodium (Levothyroxine Sodium) 150 Mcg Tab 150 MCG PO QAM Lisinopril (Zestril) 10 Mg Tab 10 MG PO DAILY, TAB Lutein-Zeaxanthin (Lutein W/Zeaxanthin) 1 Tab Tab 1 TAB PO DAILY Misc Natural Products (Osteo Bi-Flex Advanced Do) 1 Tab Tab 1 TAB PO QAM Multivitamins/Minerals (Mvi With Minerals) Tab 1 TAB PO QAM, TAB Oxybutynin Chloride (Ditropan) 5 Mg Tab 5 MG PO DAILY, TAB Discontinued Medications: Acetaminophen (Tylenol) 500 Mg Tab 1000 MG PO TID PRN for Pain, TAB Discharge Exam Patient with no acute events overnight Did have a bowel movement with no blood Still having some mild abdominal pain, still feeling tired Patient was able to tolerate a PO diet this morning without any worsening symptoms Review of Systems: Constitutional: No fever, No chills, No sweats Respiratory: No cough, No sputum, No wheezing Cardiovascular: No chest pain, No PND, No edema Abdomen: + pain, No nausea, No vomiting, No diarrhea, No constipation, No GI bleeding Genitourinary - Female: No dysuria, No urinary frequency, No urinary urgency Hematologic / Lymphatic: No abnormal bleeding/bruising, No clotting problems (Beny Hernandez MD) Review of Systems: Constitutional: No fever Respiratory: No shortness of breath Cardiovascular: No chest pain Abdomen: No pain, No nausea, No diarrhea, No GI bleeding Physical Exam: General Appearance: no apparent distress Respiratory/Chest: lungs clear, no respiratory distress Cardiovascular: regular rate, rhythm Abdomen / GI: normal bowel sounds, non tender, soft Neurologic/Psychiatric: alert, oriented x 3 (Barbara Stoll M.D.) Hospital Course 82 year old female with a history of hemicolectomy (due to diverticulitis) presenting to [facility] with a 1 day history of bright red blood per rectum after starting 325mg of aspirin last week. Ct scan showed mild thickening and pericolonic fat stranding at the distal transverse colon and splenic flexure. In the hospital the patient was monitored for further bleeding. Her hgb came down to 8.4 and stabilized over the following two days. She did have one episode of bright red blood per rectum, but had no subsequent bleeding. GI was consulted on the patient and started her on PO Augmentin for a 10 day course. She was discharged with a 7 day course of augmentin. She was also discharged with 40mg of pantoprazole to take once daily for 2 weekss. Upon discharge her Hgb was 8.6 and the patient is to follow up with a family doctor early next week and is to get repeat blood work. Total Time Spent: Less than 30 minutes This includes examination of the patient, discharge planning, medication reconciliation, and communication with other providers. (Beny Hernandez MD) I have reviewed the medical record and performed a history and physical examination of this patient today. I have discussed the case with Dr Hernandez. The above note reflects my findings, conclusions, and recommendations. Total Time Spent: Greater than 30 minutes (35) (Barbara Stoll M.D.) Discharge Instructions Please refer to the electronic Patient Visit Report (Discharge Instructions) for additional information. (Beny Hernandez MD) Additional Copies To Beny Hernandez MD; Adriano Castellanos M.D.
[2017-02-20 15:16] VITALS: BP 147/74; PULSE 70; TEMP 36.7; O2SAT 92
[2017-02-20] MEDS ORDERED: FENTANYL PATCH REMOVE & WASTE SCH (18:59)
[2017-02-22] MEDS ORDERED: FENTANYL PATCH REMOVE & WASTE SCH (10:00)
== END 2017-02-20 16:27 | disposition home or self-care (01) | DRG 378 ==
LOC: ENRESERVTM → ENRESERVDT → C.EDB 11:25 → C.MS2W 15:05
PROVIDERS: ADMIT Hospitalist; ATTEND Family Medicine
DX: K57.33 Diverticulitis of large intestine without perforation or abscess with bleeding (principal); D62 Acute posthemorrhagic anemia; I10 Essential (primary) hypertension; E11.42 Type 2 diabetes mellitus with diabetic polyneuropathy; E78.5 Hyperlipidemia, unspecified; E03.9 Hypothyroidism, unspecified; N31.9 Neuromuscular dysfunction of bladder, unspecified; Z66 Do not resuscitate; Z90.49 Acquired absence of other specified parts of digestive tract; Z79.82 Long term (current) use of aspirin; Z79.899 Other long term (current) drug therapy

== ENCOUNTER → 2017-02-28 | Outpatient (CLI) | payer OTHER ==
[~2017-02-28] MED LIST changes: -ACET-1256 PO; +AMOX1TAB43 PO; -ATOR-22 PO; +CALC-393 PO; -CALCTAB5 PO; +CHOL1000 PO; -CHOL100010 PO; -CPC PO; +DTR/5 PO; +HYDR-4717 PO; +LISI-461 PO; +LPT/40 PO; +LUTE6TAB PO; -OXYC-57 PO; +PANT40TA PO; -PRD20 PO; -[UNRECOGNIZED DRUG - REMARK] PO
[2017-02-28 17:04] LABS: BASO % 0.3 %; BASO ABS # 0.03 K/uL (0-0.2); COMPLETE YES; EOS % 4.5 %; HEMATOCRIT 31.9 % (37-47); IG% 0.1 %; LYMPH % 24.2 %; LYMPH ABS # 2.11 K/uL (1.2-3.4); MEAN CELL VOLUME 99.4 fL (80-100); MEAN CORPUSCULAR HEMOGLOBIN 31.2 pg (25-34); MEAN CORPUSCULAR HGB CONC 31.3 g/dl (32-36); MEAN PLATELET VOLUME 10.3 fL (7.4-10.4); MONO % 9.4 %; NEUT % 61.5 %; PLATELET COUNT 293 K/uL (130-400); RED BLOOD COUNT 3.21 M/uL (4.2-5.4); WHITE BLOOD COUNT 8.73 K/uL (4.8-10.8)
[2017-02-28 17:34] LABS: BLOOD UREA NITROGEN 9 mg/dl (7-18); BUN/CREATININE RATIO 7.7 (10-20); CARBON DIOXIDE 30 mmol/L (21-32); CHLORIDE 106 mmol/L (98-107); GLUCOSE 101 mg/dl (70-99); POTASSIUM 3.8 mmol/L (3.5-5.1); SODIUM 144 mmol/L (136-145)
[2017-02-28 17:40] LABS: CALCIUM 9.1 mg/dl (8.5-10.1)
== END | disposition home or self-care (01) ==
LOC: C.LABBFT 11:34
PROVIDERS: ATTEND Internal Medicine
DX: D64.9 Anemia, unspecified (principal)

== ENCOUNTER → 2017-03-04 | Outpatient (CLI) | payer OTHER | END | disposition home or self-care (01) | LOC: C.PATHSPEC 19:04 | PROVIDERS: ATTEND Plastic Surgery | DX: L72.0 Epidermal cyst (principal) ==

== ENCOUNTER → 2017-04-28 | Outpatient (CLI) | payer OTHER ==
[~2017-04-28] MED LIST changes: -DTR/5 PO; +OXYB5TAB74 PO
--- NOTE | 2017-04-28 16:07 | MAMMOGRAPHY REPORT ---
BILATERAL DIGITAL SCREENING MAMMOGRAM WITH CAD: 04/28/2017 CLINICAL HISTORY: Routine screening. Patient has no complaints. TECHNIQUE: Bilateral CC, MLO and repeat left MLO views with more anterior compression were obtained. Current study was also evaluated with a Computer Aided Detection (CAD) system. COMPARISON: Comparison is made to exams dated: 04/21/2013 mammogram, 04/07/2012 mammogram, 04/03/2010 m ammogram - [facility], 01/13/2009, 02/22/2008 mammogram - [facility] , and 01/15/2008. BREAST COMPOSITION: There are scattered areas of fibroglandular density in both breasts. FINDINGS: A pacemaker projects over the left superior breast on the first MLO view. There are mild-t o-moderate vascular calcifications in the breasts. Evidence of prior surgery in the right upper oute r quadrant, with several surgical clips remaining in place. Benign-appearing rodlike and round calci fications elsewhere in the breasts. A partially calcified dermal lesion in the 12:00 left breast is denoted by a circular skin mole marker. No suspicious mass, architectural distortion or cluster of m icrocalcifications is seen. IMPRESSION: ACR BI-RADS CATEGORY 1: NEGATIVE There is no mammographic evidence of malignancy. A 1 year screening mammogram is recommended. The pa tient will receive written notification of the results. Approximately 10% of breast cancers are not detected with mammography. A negative mammographic report should not delay biopsy if a clinically suggestive mass is present. Augusta Garcia M.D. ay/:04/28/2017 15:05:42 [employer] Manager: Francisca MG(Mario)(Kasie), [facility] letter sent: Normal 1/2 BI-RADS Code: ACR BI-RADS Category 1: Negative
== END | disposition home or self-care (01) ==
LOC: C.MAMM 12:27
PROVIDERS: ATTEND Internal Medicine
DX: Z12.31 Encounter for screening mammogram for malignant neoplasm of breast (principal); M81.0 Age-related osteoporosis without current pathological fracture; M85.832 Other specified disorders of bone density and structure, left forearm; M85.851 Other specified disorders of bone density and structure, right thigh

== ENCOUNTER → 2017-05-19 | Outpatient (CLI) | payer OTHER ==
[2017-05-19 16:15] LABS: CALCIUM 9.3 mg/dl (8.5-10.1)
[2017-05-19 17:06] LABS: CALCIUM URINE 18.2 mg/dl
[2017-05-21 17:29] LABS: ALBUMIN 3.8 G/DL (3.8-4.8); GAMMA GLOBULIN 1.1 G/DL (0.8-1.7)
== END | disposition home or self-care (01) ==
LOC: C.LAB1850 15:00
PROVIDERS: ATTEND Internal Medicine Rheumatology
DX: M81.0 Age-related osteoporosis without current pathological fracture (principal); E55.9 Vitamin D deficiency, unspecified

== ENCOUNTER → 2017-06-02 | Outpatient (CLI) | payer OTHER ==
[2017-06-02 12:16] LABS: BASO % 0.7 %; BASO ABS # 0.05 K/uL (0-0.2); COMPLETE YES; HEMATOCRIT 41.2 % (37-47); IG% 0.3 %; LYMPH ABS # 2.45 K/uL (1.2-3.4); MEAN CELL VOLUME 92.8 fL (80-100); MEAN CORPUSCULAR HEMOGLOBIN 29.7 pg (25-34); MEAN PLATELET VOLUME 10.5 fL (7.4-10.4); MONO % 10.4 %; NEUT % 50.6 %; PLATELET COUNT 220 K/uL (130-400); RED BLOOD COUNT 4.44 M/uL (4.2-5.4)
[2017-06-02 12:26] LABS: BLOOD UREA NITROGEN 16 mg/dl (7-18); BUN/CREATININE RATIO 12.3 (10-20); CALCIUM 9.7 mg/dl (8.5-10.1); CARBON DIOXIDE 32 mmol/L (21-32); CHLORIDE 107 mmol/L (98-107); GLUCOSE 109 mg/dl (70-99); POTASSIUM 4.9 mmol/L (3.5-5.1); SODIUM 142 mmol/L (136-145)
[2017-06-02 12:35] LABS: ESTIMATED AVERAGE GLUCOSE 126 mg/dl; HA1C FLAG Normal (Normal)
== END | disposition home or self-care (01) ==
LOC: C.LAB1850 10:33
PROVIDERS: ATTEND Internal Medicine
DX: N18.3 Chronic kidney disease, stage 3 (moderate) (principal); E11.9 Type 2 diabetes mellitus without complications

== ENCOUNTER → 2017-09-10 | Outpatient (CLI) | payer OTHER ==
[~2017-09-10] MED LIST changes: +DTR/5 PO; -OXYB5TAB74 PO; -PANT40TA PO
--- NOTE | 2017-09-10 14:12 | DIAGNOSTIC IMAGING REPORT ---
RIGHT SHOULDER 3 VIEWS HISTORY: M25.511 Shoulder pain, right Right COMPARISON: None. FINDINGS: No acute fracture or dislocation within the right shoulder. Mild widening of the AC joint consistent with an acromioclavicular separation. However, the alignment remains intact. Severe osteoarthritis at the glenohumeral joint with outm-wy-aawi articulation and marginal osteophytes. Soft tissues are unremarkable. Left sided pacemaker wires are noted. IMPRESSION: 1. No acute fracture or dislocation within the right shoulder. 2. 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 3. Mild AC joint separation. Electronically signed by: Kranthi Mena M.D. 09/10/2017 2:11 PM Dictated Date/Time: 09/10/2017 2:09 PM
== END | disposition home or self-care (01) ==
LOC: C.RAD1850 13:55
PROVIDERS: ATTEND Internal Medicine
DX: M19.011 Primary osteoarthritis, right shoulder (principal)

== ENCOUNTER → 2017-10-14 | Outpatient (CLI) | payer OTHER ==
[2017-10-14 18:32] LABS: ALBUMIN 3.5 gm/dl (3.4-5.0); BLOOD UREA NITROGEN 20 mg/dl (7-18); CARBON DIOXIDE 31 mmol/L (21-32); CREATININE 1.36 mg/dl (0.60-1.20); GLUCOSE 99 mg/dl (70-99); POTASSIUM 4.3 mmol/L (3.5-5.1); SODIUM 140 mmol/L (136-145)
[2017-10-14 18:43] LABS: PHOSPHORUS 3.6 mg/dl (2.5-4.9)
[2017-10-15 07:25] LABS: HEMOGLOBIN A1C 6.1 % (4.5-5.6)
== END | disposition home or self-care (01) ==
LOC: C.LABBFT 14:59
PROVIDERS: ATTEND Internal Medicine
DX: E11.9 Type 2 diabetes mellitus without complications (principal); E03.9 Hypothyroidism, unspecified; N18.3 Chronic kidney disease, stage 3 (moderate)

== ENCOUNTER → 2018-01-13 | Outpatient (CLI) | payer OTHER | END | disposition home or self-care (01) | LOC: C.LABBFT 14:47 | PROVIDERS: ATTEND Internal Medicine | DX: E03.9 Hypothyroidism, unspecified (principal) ==

== ENCOUNTER 2018-09-21 15:46 | Observation (INO) ==
[2018-09-21] MEDS ORDERED: ACETAMINOPHEN 1000 MG/100 ML IV IV STA (16:28)
[2018-09-21 17:08] LABS: Basophils # (auto) 0.03 K/uL (0-0.2); Basophils % (auto) 0.4 %; Eosinophils # (auto) 0.27 K/uL (0-0.5); Eosinophils % (auto) 3.2 %; Hemoglobin 14.4 g/dL (12.0-16.0); Immature Granulocytes # (auto) 0.02 K/uL (0.00-0.02); Immature Granulocytes % (auto) 0.2 %; Lymphocytes # (auto) 2.74 K/uL (1.2-3.4); Mean Corpuscular Hgb Conc 33.5 g/dL (32-36); Mean Corpuscular Volume 95.3 fL (80-100); Mean Platelet Volume 11.1 fL (7.4-10.4); Monocytes # (auto) 0.84 K/uL (0.11-0.59); Monocytes % (auto) 9.8 %; Neutrophils # (auto) 4.66 K/uL (1.4-6.5); Neutrophils % (auto) 54.4 %; Platelet Count 223 K/uL (130-400); RDW Coefficient of Variation 13.7 % (11.5-14.5); RDW Standard Deviation 47.7 fL (36.4-46.3); Red Blood Count 4.51 M/uL (4.2-5.4); White Blood Count 8.56 K/uL (4.8-10.8)
[2018-09-21 17:33] LABS: Albumin Level 3.6 gm/dl (3.4-5.0); BUN Creatinine Ratio 13.8 (10-20); Calcium 9.3 mg/dl (8.5-10.1); Creatinine Clr Calc Pharmacy 29.5 ml/min; Est GFR (African American) 41.8; Potassium 3.7 mmol/L (3.5-5.1)
[2018-09-21 17:36] LABS: Albumin Globulin Ratio 0.9 (0.9-2); Bilirubin,Total 0.7 mg/dl (0.2-1); Total Protein 7.6 gm/dl (6.4-8.2)
[2018-09-21 17:44] LABS: iSTAT Hemoglobin 14.3 g/dl (12.0-16.0); iSTAT Ionized Calcium 1.12 mmol/l (1.12-1.32)
--- NOTE | 2018-09-21 17:45 | XRay Report ---
XR ankle LT 2V CLINICAL HISTORY: 83 years-old Female presenting with fall. TECHNIQUE: Frontal and lateral views of the left ankle were obtained. COMPARISON: Plain radiographs of the left lower leg from 2015. FINDINGS: Widening of the lateral aspect of the ankle mortise. Osteopenia. No gross evidence of an ankle fractu re. Prominent enthesophyte at the origin of plantar fascia. No advanced degenerative change. Atherosc lerosis. IMPRESSION: Widening of the lateral ankle mortise concerning for soft tissue injury. No radiographic evidence of acute osseous injury. Electronically signed by: Fabian Marrufo M.D. 09/21/2018 5:43 PM
--- NOTE | 2018-09-21 17:46 | XRay Report ---
XR knee LT 3V, XR tibia fibula LT 2V HISTORY: 83 years-old Female fall acute left lower leg pain status post fall COMPARISON: Left ankle radiographs of same day TECHNIQUE: 3 views of the left knee and 2 views of the left tibia/fibula. FINDINGS: KNEE: Mildly demineralized appearance of the bones. Mild tricompartmental joint space narrowing with margin al spurring. No acute fracture, dislocation or opaque foreign body. Mild marginal spurring of the tib ial spines. No large joint effusion. Mild circumferential soft tissue swelling. TIBIA/FIBULA: No acute fracture, dislocation or opaque foreign body. IMPRESSION: 1. No acute fracture or dislocation. 2. Mild circumferential soft tissue swelling about the knee. The above report was generated using voice recognition software. It may contain grammatical, syntax o r spelling errors. Electronically signed by: Froylan Kuo M.D. 09/21/2018 5:45 PM
--- NOTE | 2018-09-21 17:47 | XRay Report ---
XR wrist LT min 3V routine CLINICAL HISTORY: 83 years-old Female presenting with fall. TECHNIQUE: Frontal, bilateral oblique, and lateral views of the left wrist were obtained. COMPARISON: Plain radiographs of the left hand from 2015. FINDINGS: Osteopenia. This limits evaluation for nondisplaced fracture. Advanced degenerative changes of the ra dial aspect of the carpus further limits evaluation for acute osseous injury. Joint space loss, osteo phytosis, subchondral sclerosis and cystic change at the scaphoid-trapezium, trapezium-first metacarp al, and articulations with the base of the second metacarpal. These are similar though slightly advan terri from the prior exam. Degenerative change results in chronic malalignment. Joint space loss though no acute subluxation is apparent. IMPRESSION: Allowing for the degree of osteopenia and degenerative change in the carpus, no radiographic evidence of acute osseous injury. If there is continuing clinical concern, cross-sectional imaging could be o btained. Electronically signed by: Fabian Marrufo M.D. 09/21/2018 5:46 PM
--- NOTE | 2018-09-21 17:49 | XRay Report ---
XR elbow RT 2V, XR shoulder RT min 2V routine HISTORY: 83 years-old Female fall acute right elbow and shoulder pain status post fall COMPARISON: None available TECHNIQUE: 3 views of the right elbow and 2 views of the right shoulder FINDINGS: ELBOW: Mildly demineralized appearance of the bones. Degenerative changes about the elbow. No acute fracture or dislocation. ORIF hardware about the distal radius, partially imaged. No large joint effusion or opaque foreign body. Surgical clips project over the right breast. SHOULDER: Demineralized appearance of the bones. Widening of the AC joint. Limited study secondary to the AP a nd internal rotation views submitted. At least moderate degenerative changes of the glenohumeral join t. No definite acute fracture or dislocation identified. IMPRESSION: 1. No acute fracture or dislocation identified. 2. Limited evaluation of the shoulder secondary to positioning. If of further clinical concern for un derlying occult fracture, consider repeat 3 view study of the shoulder. The above report was generated using voice recognition software. It may contain grammatical, syntax o r spelling errors. Electronically signed by: Froylan Kuo M.D. 09/21/2018 5:48 PM
--- NOTE | 2018-09-21 18:16 | CT Scan Report ---
CT cervical spine wo con CLINICAL HISTORY: 83 years-old Female presenting with fall. TECHNIQUE: Multidetector CT of the cervical spine was performed 1 IV contrast: None. A dose lowering technique was used consistent with the principles of ALARA (as low as reasonably achievable). COMPARISON: 09/17/2010. CT DOSE (mGy.cm): The estimated cumulative dose is 2196.7. FINDINGS: Lead Recoverer topogram: Left subclavian implanted cardiac defibrillator with leads to the right atrium and ri ght ventricular apex. An additional abandoned lead may be present. A biliary ductal stent may be pres ent. Total left hip arthroplasty. Scoliosis. Normal cervical lordosis. Extensive multilevel degenerative changes. Vertebral bodies maintain normal height and alignment allowing for degenerative change. Significant multilevel intervertebral disc he ight loss most severe at C4-5 and C6-7. Disc osteophyte complexes noted to varying degrees at nearly every level. Prominent anterior osteophytosis. No advanced facet arthropathy. Mild facet arthropathy noted in the upper cervical spine on the left. Osseous neural foraminal narrowing resulting from unco vertebral hypertrophy and facet arthropathy results at C3-4 bilaterally to a mild degree, right great er than left at C5-6, and mild bilaterally at C6-7. No acute fracture or subluxation. Degenerative ch anges of the atlantodental articulation. Visualized portion of the skull base is intact. Minimal soft tissue in the external auditory canals likely cerumen. Paraspinal soft tissues within normal limits. IMPRESSION: 1. No acute osseous injury of the cervical spine. 2. Multilevel degenerative changes. Electronically signed by: Fabian Marrufo M.D. 09/21/2018 6:15 PM
--- NOTE | 2018-09-21 18:23 | CT Scan Report ---
CT chest w con CLINICAL HISTORY: 83 years-old Female presenting with fall. TECHNIQUE: Multidetector CT imaging of the chest was performed after the administration of intravenou s contrast. IV contrast: 119 mL of Optiray 320. A dose lowering technique was used consistent with th e principles of ALARA (as low as reasonably achievable). COMPARISON: 09/11/2014. CT DOSE (mGy.cm): The estimated cumulative dose is 2196.76. FINDINGS: Craft Artist topogram: Left subclavian implanted cardiac for bladder with leads to the right atrium and righ t ventricular apex. An additional band and lead may be present. Common bile duct stent. Total left hi p are the plasty. On soft tissue windows, thyroid atrophic or absent. No axillary, supraclavicular, hilar, or mediastin al lymphadenopathy. Atherosclerosis of the aorta. Left subclavian implanted cardiac for bladder with leads to the right atrium, right ventricular apex, and coronary sinus. Mild coronary artery calcifica tion. Normal heart size. No pericardial or pleural effusion. Pneumobilia. Bile duct stent partially v isualized. 7 mm cystic lesion in the tail the pancreas, likely small side branch intraductal papillar y mucinous neoplasm or mucinous cyst. On lung windows, no pneumothorax. Central airways patent. Minimal dependent changes likely atelectasi s. Few small calcified granulomata. On bone windows, degenerative changes of the spine. Post procedural changes of kyphoplasty at T12. Os teopenia. Significant degenerative changes degrades evaluation for acute osseous injury. Nondisplaced acute fracture of the anterior right fourth and fifth ribs. Sternum grossly intact. Advanced degener ative changes of the glenohumeral joints. IMPRESSION: 1. No acute intrathoracic injury. 2. Acute nondisplaced fractures of the anterior right fourth and fifth ribs. 3. Additional chronic findings as above. Electronically signed by: Fabian Marrufo M.D. 09/21/2018 6:22 PM
--- NOTE | 2018-09-21 18:24 | CT Scan Report ---
CT head/brain wo con CLINICAL HISTORY: 83 years-old Female with fall. Acute head injury status post fall TECHNIQUE: Multiple axial CT images of the head were obtained without contrast. A dose lowering tech nique was utilized adhering to the principles of ALARA. COMPARISON: CT cervical spine of same day, CT head 10/26/2015. FINDINGS: No acute intracranial hemorrhage, midline shift, intracranial mass, hydrocephalus, territorial ischem ia or abnormal extra-axial collection. Age-related involutional changes. Moderate to extensive chroni c microvascular ischemic changes. Senescent calcifications of the lentiform nuclei and mid cerebellum within the region of the dentate nuclei. The calvarium is intact. The paranasal sinuses, mastoid air cells, and middle ear cavities are clear . IMPRESSION: No acute intracranial abnormality or calvarial fracture. The above report was generated using voice recognition software. It may contain grammatical, syntax o r spelling errors. Electronically signed by: Froylan Kuo M.D. 09/21/2018 6:23 PM
--- NOTE | 2018-09-21 18:24 | CT Scan Report ---
ABDOMEN AND PELVIS CT WITH IV CONTRAST CT DOSE: 2196.76 mGy.cm HISTORY: Acute abdominal trauma status post fall fall TECHNIQUE: Multiaxial CT images of the abdomen and pelvis were performed following the use of intrave nous contrast. A dose lowering technique was utilized adhering to the principles of ALARA. COMPARISON STUDY: CT abdomen and pelvis 08/11/2018, 08/05/2018. FINDINGS: Mild dependent subsegmental bibasilar atelectasis. 6 mm pulmonary nodule of the inferior segment ling sahra, image 316 series 8, definitively seen on comparison however there was consolidation within this area on prior study. Nodule abuts the major fissure. No pneumatosis or pneumoperitoneum. Imaged infer ior cardiac chambers are mildly enlarged with coronary arterial disease. Partially imaged pacer leads . Prior cholecystectomy. Pneumobilia redemonstrated about the intrahepatic biliary tree and common bile duct. Stent of the common bile duct is noted with distal portion terminating within the duodenum, un changed. Generalized pancreatic atrophy. Coarse calcifications about the pancreatic parenchyma sugges ts chronic pancreatitis. Terminate millimeters cystic focus of the pancreatic tail suggests possible sidebranch IPMN. Mild thickening of the bilateral adrenal glands. Mild atrophy of the left kidney. Mild nonspecific bilateral perinephric stranding. No renal calculi o r obstructive uropathy. The pelvic structures are suboptimally visualized secondary to streak artifac t from left hip arthroplasty. Prior hysterectomy. No adnexal mass lesions. Extensive calcification of the aorta without aneurysm. Ectasia of the aorta measures up to 2.3 cm. No adenopathy. No bowel obst ruction. Mildly enlarged duodenal lymph nodes measure up to 1 cm in short axis. Colonic diverticulosi s without acute diverticulitis. No ascites or mesenteric inflammatory changes. Soft tissues are unrem arkable. Atrophy of the paraspinal musculature. Demineralized appearance of the bones. Multilevel advanced facet arthrosis with spondylitic spurring and intervertebral disc space narrowing. Left hip arthroplasty. Remote compression deformity with kyp hoplasty changes at T12. No definite acute compression deformity of the lumbar spine. Partially image d metallic lead noted about the inferior left breast. IMPRESSION: 1. No acute intra-abdominal or intrapelvic abnormality identified. 2. Prior cholecystectomy with satisfactory positioning of the common bile duct stent. Persistent pneu mobilia compatible with stent patency. 3. Colonic diverticulosis without acute diverticulitis. 4. No acute fracture identified. 5. 6 mm solid nodule of the inferior segment lingula. 6. Additional findings as above. Please refer to below summary of Fleischner criteria recommendations for follow-up of incidental CT n odules (Amy Bustos, Guidelines for management of small pulmonary nodules detected on CT scans: A sta tement from the Fleischner Society, Radiology 237: [phone].) SOLID NODULES Solitary nodule size: 6-8 mm * Low risk patients: follow-up at 6-12 months, then consider further follow-up at 18-24 months * high risk patients: initial follow-up CT at 6-12 months and then at 18-24 months if no change Note: newly detected indeterminate nodule in persons 35 years of age or older. * Low risk patients: minimal or absent history of smoking and/or other known risk factors * high risk patients: history of smoking or of other known risk factors (e.g. first degree relative with lung cancer, or exposure to asbestos, radon, uranium) * if a nodule up to 8 mm is partly solid or is ground glass further follow-up is required after 24 m onths to exclude possible slow growing adenocarcinoma ([facility] GRACE) The above report was generated using voice recognition software. It may contain grammatical, syntax o r spelling errors. Electronically signed by: Froylan Kuo M.D. 09/21/2018 6:23 PM
--- NOTE | 2018-09-21 18:35 | CT Scan Report ---
CT thoracic spine wo con, CT lumbar spine wo con HISTORY: 83 years-old Female fall acute made and low back pain status post fall COMPARISON: CT thoracolumbar spine 08/13/2018 TECHNIQUE: Multiple axial CT images of the thoracic and lumbar spine were obtained without the use of IV contrast. A dose lowering technique was used consistent with the principals of JIM. FINDINGS: THORACIC: No compression deformity with kyphoplasty changes at T12. Demineralized appearance of the bones. Unc hanged mild retropulsion at this level. No acute fracture or subluxation of the thoracic spine identi fied. Multilevel moderate to severe intervertebral disc space narrowing with advanced spondylitic spu rring and facet arthrosis. Evaluation of the central canal and neuroforamina is suboptimally assessed by CT. No acute rib fracture identified. Dextroscoliosis. No prevertebral soft tissue swelling. Subsegmental bibasilar atelectasis/scarring. Calcification the thoracic aortic arch. LUMBAR: Demineralized appearance of the bones. Remote compression deformity is unchanged retropulsion and kyp hoplasty at T12. Levoscoliosis of the lower lumbar spine. No acute sacral insufficiency fracture. No acute compression deformity or subluxation. Severe multilevel intervertebral disc space narrowing wit h spondylitic spurring and advanced facet arthrosis with ligamentum flavum thickening. Evaluation of the central canal and neuroforamina is better assessed by MRI. Multilevel central canal and foraminal narrowing is noted. Posterior disc osteophyte complex formations are also noted. 3 mm degenerative r etrolisthesis L2 on L3 is unchanged. No prevertebral soft tissue swelling. Remote fracture of the right transverse process L2. Degenerativ e changes noted about the bilateral SI joints. IMPRESSION: 1. No acute fracture or subluxation of the thoracic or lumbar spine. 2. Remote compression deformity with kyphoplasty changes at T12. 3. Demineralized appearance of the bones with advanced degenerative changes as above. The above report was generated using voice recognition software. It may contain grammatical, syntax o r spelling errors. Electronically signed by: Froylan Kuo M.D. 09/21/2018 6:33 PM
[2018-09-21] MEDS ORDERED: LIDOCAINE 5% 1 PATCH TD STA (19:51)
[2018-09-21] MEDS ORDERED: TRAMADOL HCL 50 MG TABLET PO STA (19:52)
--- NOTE | 2018-09-21 20:09 | History & Physical Report ---
Date of Service September 21, 2018 Assessment & Plan (1) Closed rib fracture: 83-year-old female was admitted for observation and 21 September 2018 status post fall and new rib fractures. Right rib fractures: Witnessed mechanical fall without loss of consciousness. After CT imaging of the head, cervical spine, thoracic and lumbar spine, chest/ abdomen/pelvis as well as x-rays of the right elbow, right shoulder, left wrist , left knee, left tib-fib, and left ankle --- notable for acute non-displaced fractures of the anterior right fourth and fifth ribs as well as a pulmonary nodule. - Pain control with Tylenol and tramadol. - We will consult PT/OT. - Patient is also complaining of left shoulder pain and decreased range of motion, so will obtain left shoulder x-rays as well. Pulmonary nodule: 6 mm seen in inferior segment lingula. Recommend outpatient follow-up. Ongoing medical issues: - Hypertension: At home is on Coreg, lisinopril, hydralazine. Continued. - Hyperlipidemia: At home is on atorvastatin 40. Continued. - Hypothyroidism: At home is on levothyroxine 150 mcg. Continued. - CKD stage III: Initial Cr 1.34, similar to recent values. - Chronic pancreatitis: No current abdominal pain. Admit lipase 169. - Diabetes type 2: HbA1c on was 5.9. At home is on glipizide. Here on insulin sliding scale. - Nonischemic cardiomyopathy: Pacemaker placement in 2007. - Severe osteoarthritis, degenerative disc disease, and spinal stenosis: At home is on vitamin D, Osteo Bi-Flex, oxybutynin, diclofenac, and aspirin caffeine combo. Continued. - Prior cholecystectomy with common bile duct stent placed on 07Aug2018. - Duodenal ulcer: As seen on EGD on 07Aug2018. Will put on protonix here. - Was positive for C diff on 10Aug2018. Completed antibiotics on . No present diarrhea. Code status: Full code Diet: Diabetes DVT prophy: Lovenox. PT/OT: Ordered. Disbo: Admit for observation to [facility]. Case management consulted. -At baseline, patient lives at home with . However is presently admitted and is on track to be discharged to rehab on . The patient's daughter is relatively local but is caring for her who also has recently discharged from the hospital. (2) Pulmonary nodule seen on imaging study: (3) Hypertension: (4) HLD (hyperlipidemia): (5) Hypothyroid: (6) CKD (chronic kidney disease) stage 3, GFR 30-59 ml/min: (7) Chronic pancreatitis: (8) Diabetes: (9) Nonischemic cardiomyopathy: (10) Osteoarthritis: (11) Degenerative joint disease (DJD) of hip: (12) Degenerative lumbar spinal stenosis: (13) History of cholecystectomy: (14) Duodenal ulcer: History of Present Illness Primary Care Provider: Rome Castellanos MD 83-year-old female says that she was visiting her here in the hospital this afternoon. She says she was about to go home and was moving towards sitting in a wheelchair. However, she says she tripped over the legs of her wheelchair, landing onto her abdomen and chin. She remembers all of the events and denies any loss of consciousness. She was transferred down the emergency room for further evaluation. At present, she says her pain is primarily in her right anterior ribs as well as left anterior shoulder. She also has diffuse milder pain in her bilateral legs and arms. She denies any other acute concerns. Of note, patient says that her is due to be discharged from the hospital on September 23 but will go to rehab. Normally she lives in her home with him but is concerned about assistance given her pain. Her daughter is visiting in the ED during our interview but says that her (daughters) was also just discharged from the hospital so she will be able to care for her mother as much as she normally would. Allergies Allergy/AdvReac Type Severity Reaction Status Date / Time celecoxib Allergy Severe SX OF Verified 09/21/18 17:59 STROKE, FACIAL NUMBNESS, UNABLE TO SPEAK metronidazole AdvReac Mild N/V Verified 09/21/18 17:59 Cipro AdvReac Unknown UPSET Verified 02/17/17 12:03 STOMACH ciprofloxacin AdvReac Unknown UPSET Verified 09/21/18 17:59 STOMACH Home Medications Home Medications Medication Instructions Recorded Confirmed Type atorvastatin 40 mg PO HS 08/05/18 09/21/18 History carvedilol 12.5 mg PO QAM 08/05/18 09/21/18 History cholecalciferol (vitamin D3) 2,000 unit PO QAM 08/05/18 09/21/18 History [Vitamin D3] cyanocobalamin (vitamin B-12) 1,000 mcg PO QAM 08/05/18 09/21/18 History [Vitamin B-12] glipizide 5 mg PO QAM 08/05/18 09/21/18 History glucosamine-chondroitin [Osteo 1 tab PO QAM 08/05/18 09/21/18 History Bi-Flex] hydralazine 25 mg PO QAM 08/05/18 09/21/18 History levothyroxine 150 mcg PO QAM 08/05/18 09/21/18 History lisinopril 10 mg PO QAM 08/05/18 09/21/18 History voabtuuh-usn-XY-lycopen-lutein 1 tab PO QAM 08/05/18 09/21/18 History [Centrum Silver] oxybutynin chloride 5 mg PO QAM 08/05/18 09/21/18 History diclofenac sodium 4 gm TOP QID PRN #100 gm 08/17/18 09/21/18 Rx aspirin-caffeine [Back and Body 1 tab PO UD 09/21/18 09/21/18 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] Past Med/Surg History Medical History HLD (hyperlipidemia) (Chronic) Hypothyroid (Chronic) GERD (gastroesophageal reflux disease) (Chronic) Hypertension (Chronic) CKD (chronic kidney disease) stage 3, GFR 30-59 ml/min (Chronic) Osteoarthritis (Acute) Degenerative joint disease (DJD) of hip (Acute) Degenerative lumbar spinal stenosis (Chronic) Chronic pancreatitis Diabetes mellitus, type 2 Diverticulitis Duodenal ulcer Nonischemic cardiomyopathy Osteoporosis Scaphoid fracture of wrist Surgical History S/P ICD (internal cardiac defibrillator) procedure Biventricular AICD placed in 2007 S/P partial colectomy S/P hysterectomy S/P appendectomy History of cholecystectomy (Resolved) S/P kyphoplasty (Inactive) History of ERCP w/ sphincterotomy & CBD stent History of cardiac cath PER PT, 5-10 YEARS AGO AT [facility] - REASON? - NO STENTS/ANGIOPLASTY History of colonoscopy History of esophagogastroduodenoscopy (EGD) History of vertebroplasty T12 Family History Son Family history of diabetes mellitus Social History Current Living Situation: Spouse Other Information That Helps Us Care for You: No Feels Safe at Home: Yes Safety Concerns: Feels Safe At This Time Smoking Status: Never smoker Second Hand Exposure: No Hx Alcohol Use: No Hx Substance Use: No Beliefs That Will Affect Care: None Preferred Language: Spanish Communication Ability: Effective Software Quality Manager Required: No Review of Systems Constitutional: Denies fevers, chills, focal weakness Eyes: Denies any visual loss or diplopia ENT: Denies any ear/nose/throat pain or difficulty speaking or swallowing Respiratory: Denies any dyspnea, cough, hemoptysis Cardiovascular: Denies feeling of edema Gastrointestinal: Denies any abdominal pain, nausea/vomiting/diarrhea Musculoskeletal: See HPI. Skin: Denies any known acute rashes or lesions Neuro: Denies any headache, acute focal weakness or numbness, or difficulties with speech or swallow. Psych: Denies any recent depression or anxiety Physical Exam 2 Vital Signs (Past 24 Hours): Last Vital Signs Temp 36.8 C 09/21/18 16:00 Pulse 74 09/21/18 20:01 Resp 21 09/21/18 20:01 BP 142/108 H 09/21/18 20:01 Pulse Ox 93 09/21/18 20:01 Physical Exam: GENERAL: Awake, alert, well-appearing, in no distress HENT: Normocephalic. Oropharynx unremarkable. Small chip to front tooth. EYES: Normal conjunctiva. Sclera non-icteric. NECK: Inspection normal. No nuchal rigidity. CARDIAC: +S1S2 RRR, no murmurs. RESPIRATORY: Clear to auscultation. No wheezes or rales. Normal respiratory effort. GI: +BS, soft, non-distended. No tenderness to palpation. No rebound or guarding. EXTREMITIES: - Tenderness to the right shoulder, elbow, left wrist, left knee, left ankle, right sided chest wall. - Patient can bend her knees and ankles bilaterally. She can raise her right arm shoulder and elbow. - Patient does not move her left shoulder at all but can move her wrist and has normal mat puncher strength. Distal sensation intact and 2+ radial pulse. NEURO: No gross neuro deficits. Results & Data Laboratory Results 09/21/18 09/21/18 09/21/18 Range/Units 16:58 16:53 16:53 WBC 8.56 (4.8-10.8) K/uL RBC 4.51 (4.2-5.4) M/uL Hgb 14.4 (12.0-16.0) g/dL POC Hgb 14.3 (12.0-16.0) g/dl Hct 43.0 (37-47) % POC Hct 42 (37-47) % MCV 95.3 (80-100) fL MCH 31.9 (25-34) pg MCHC 33.5 (32-36) g/dL RDW Std Deviation 47.7 H (36.4-46.3) fL RDW Coeff of Radha 13.7 (11.5-14.5) % Plt Count 223 (130-400) K/uL MPV 11.1 H (7.4-10.4) fL Immature Gran % (Auto) 0.2 % Neut % (Auto) 54.4 % Lymph % (Auto) 32.0 % [place] % (Auto) 9.8 % Eos % (Auto) 3.2 % Baso % (Auto) 0.4 % Immature Gran # (Auto) 0.02 (0.00-0.02) K/uL Neut # (Auto) 4.66 (1.4-6.5) K/uL Lymph # (Auto) 2.74 (1.2-3.4) K/uL [place]wall # (Auto) 0.84 H (0.11-0.59) K/uL Eos # (Auto) 0.27 (0-0.5) K/uL Baso # (Auto) 0.03 (0-0.2) K/uL POC Sodium 145 H (135-144) mEq/L Sodium 142 (136-145) mmol/L POC Potassium 4.1 (3.3-5.0) mEq/L Potassium 3.7 (3.5-5.1) mmol/L POC Chloride 106 (101-112) mEq/L Chloride 108 H (98-107) mmol/L Carbon Dioxide 25 (21-32) mmol/L POC Total CO2 26 (24-31) mEq/l Anion Gap 9.0 (3-11) POC Anion Gap 19.0 (16-25) mmol/L POC BUN 19 H (7-18) mg/dl BUN 19 H (7-18) mg/dl Creatinine 1.34 H (0.6-1.2) mg/dl POC Creatinine 1.2 (0.6-1.3) mg/dl Est Cr Clr Drug Dosing 29.5 ml/min Est GFR ( Amer) 41.8 Est GFR (Non-Af Amer) 36.0 BUN/Creatinine Ratio 13.8 (10-20) Glucose 89 (70-99) mg/dl POC Glucose (other) 94 (70-99) mg/dl Calcium 9.3 (8.5-10.1) mg/dl POC Ioniz Calcium Camila 1.12 (1.12-1.32) mmol/l Total Bilirubin 0.7 (0.2-1) mg/dl AST 25 (15-37) U/L ALT 19 (12-78) U/L Alkaline Phosphatase 72 (45-117) U/L Total Protein 7.6 (6.4-8.2) gm/dl Albumin 3.6 (3.4-5.0) gm/dl Globulin 4.0 (2.5-4.0) gm/dl Albumin/Globulin Ratio 0.9 (0.9-2) Lipase 169 (73-393) U/L Diagnostic Findings CT head/brain wo con IMPRESSION: No acute intracranial abnormality or calvarial fracture. CT cervical spine wo con IMPRESSION: 1. No acute osseous injury of the cervical spine. 2. Multilevel degenerative changes. CT thoracic spine wo con, CT lumbar spine wo con IMPRESSION: 1. No acute fracture or subluxation of the thoracic or lumbar spine. 2. Remote compression deformity with kyphoplasty changes at T12. 3. Demineralized appearance of the bones with advanced degenerative changes as above. CT chest w con IMPRESSION: 1. No acute intrathoracic injury. 2. Acute nondisplaced fractures of the anterior right fourth and fifth ribs. 3. Additional chronic findings as above. ABDOMEN AND PELVIS CT WITH IV CONTRAST IMPRESSION: 1. No acute intra-abdominal or intrapelvic abnormality identified. 2. Prior cholecystectomy with satisfactory positioning of the common bile duct stent. Persistent pneumobilia compatible with stent patency. 3. Colonic diverticulosis without acute diverticulitis. 4. No acute fracture identified. 5. 6 mm solid nodule of the inferior segment lingula. 6. Additional findings as above. XR elbow RT 2V, XR shoulder RT min 2V routine IMPRESSION: 1. No acute fracture or dislocation identified. 2. Limited evaluation of the shoulder secondary to positioning. If of further clinical concern for underlying occult fracture, consider repeat 3 view study of the shoulder. XR wrist LT min 3V routine IMPRESSION: Allowing for the degree of osteopenia and degenerative change in the carpus, no radiographic evidence of acute osseous injury. If there is continuing clinical concern, cross-sectional imaging could be obtained. XR knee LT 3V, XR tibia fibula LT 2V IMPRESSION: 1. No acute fracture or dislocation. 2. Mild circumferential soft tissue swelling about the knee. XR ankle LT 2V IMPRESSION: Widening of the lateral ankle mortise concerning for soft tissue injury. No radiographic evidence of acute osseous injury. Code Status & VTE Plan Code Status Full code VTE Prophylaxis Plan VTE Prophylaxis will be ordered: Yes Supervising Physician Co-Signing Physician Notes Pt seen/examined following resident MD Veda Lambert. Orders and plan of admission formulated with resident. 83 y/o F Hx HTN, CKD III, mild systolic CHF, HTN, DM II, hypothyroidism, AV pacer-defibrillator. The pt presents following a fall where she sustained 2 R rib fractures and is unable to mobilize her R arm due to shoulder pain. SHe denies or cannot recall any symptoms preceding her fall. The pt's social situation necessitates that she care for herself at present. She is unable to do so and is admitted to the hospital therefore. OE AAO x 2 S1,2 R - mild systolic murmur CTAB - shallow effort NT, ND No CCE Cannot mobilize R arm P: 1) Fall - fractures and loss of RUE mobility - may need MRI to assess for muscular or ligamentous injury. Pt will likely need temp placement in acute rehab - AM PT/OT requested. 2) CKD III - creat is at or below baseline 3) DM II - placed on a SS 4) Hypothyroid - cont Thyroxine 5) HTN - cont Lisinopril, Hydralazine, Carvedilol 6) CHF - B niraj, MARK - does not currently take a diuretic Resident Activity Tracking Resident Involvement: Resident Care Provided Care Provided: [facility] Medicine _ (1) Closed rib fracture Encounter type: initial encounter Fracture healing: Laterality: right Rib fracture type: multiple ribs Qualified Code(s): S22.41XA - Multiple fractures of ribs, right side, initial encounter for closed fracture
--- NOTE | 2018-09-21 20:44 | Emergency Department Note ---
Entered by Claudia Wild acting as a scribe for History of Present Illness General Chief complaint: Fall Source: patient History of Present Illness Onset (ago): minute(s) (Prior to arrival) Location: head (Fall) Radiation: back Pain Consistency: + other (Episode) Maximum Pain Intensity: 9 Quality: + other (Fall) Exacerbated By: + movement Associated symptoms: + headaches and + other (Positive right elbow, right shouler, left knee and ankle pain. 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 The patient reports that she fell over a wheelchair and landed on her face and stomach. She states that she was dizzy before her fall and that after her fall she had a headache. She notes that her right elbow, right shoulder and left ankle and knee hurt. She adds that her right shoulder pain radiates across her back. She denies abdominal pain and nausea. She states that movement worsens her pain. 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 Home Medications Home Medications Medication Instructions Recorded Confirmed Type atorvastatin 40 mg PO HS 08/05/18 09/21/18 History carvedilol 12.5 mg PO QAM 08/05/18 09/21/18 History cholecalciferol (vitamin D3) 2,000 unit PO QAM 08/05/18 09/21/18 History [Vitamin D3] cyanocobalamin (vitamin B-12) 1,000 mcg PO QAM 08/05/18 09/21/18 History [Vitamin B-12] glipizide 5 mg PO QAM 08/05/18 09/21/18 History glucosamine-chondroitin [Osteo 1 tab PO QAM 08/05/18 09/21/18 History Bi-Flex] hydralazine 25 mg PO QAM 08/05/18 09/21/18 History levothyroxine 150 mcg PO QAM 08/05/18 09/21/18 History lisinopril 10 mg PO QAM 08/05/18 09/21/18 History tkzhhqqb-pxs-XK-lycopen-lutein 1 tab PO QAM 08/05/18 09/21/18 History [Centrum Silver] oxybutynin chloride 5 mg PO QAM 08/05/18 09/21/18 History diclofenac sodium 4 gm TOP QID PRN #100 gm 08/17/18 09/21/18 Rx aspirin-caffeine [Back and Body 1 tab PO UD 09/21/18 09/21/18 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] Allergies Allergy/AdvReac Type Severity Reaction Status Date / Time celecoxib Allergy Severe SX OF Verified 09/21/18 17:59 STROKE, FACIAL NUMBNESS, UNABLE TO SPEAK metronidazole AdvReac Mild N/V Verified 09/21/18 17:59 Cipro AdvReac Unknown UPSET Verified 02/17/17 12:03 STOMACH ciprofloxacin AdvReac Unknown UPSET Verified 09/21/18 17:59 STOMACH Past Med/Surg History Medical History HLD (hyperlipidemia) (Chronic) Hypothyroid (Chronic) GERD (gastroesophageal reflux disease) (Chronic) Hypertension (Chronic) CKD (chronic kidney disease) stage 3, GFR 30-59 ml/min (Chronic) Osteoarthritis (Acute) 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 - NO STENTS/ANGIOPLASTY History of colonoscopy History of esophagogastroduodenoscopy (EGD) History of vertebroplasty T12 Family History Son Family history of diabetes mellitus Social History Current Living Situation: Spouse Feels Safe at Home: Yes Smoking Status: Never smoker Second Hand Exposure: No Hx Alcohol Use: No Hx Substance Use: No Beliefs That Will Affect Care: None Preferred Language: Scottish Communication Ability: Effective Review of Systems See HPI for pertinent positives & negatives. and A total of 10 systems reviewed and were otherwise negative Physical Exam Vital Signs Vital Signs - 24 hr 09/21/18 16:00 09/21/18 17:56 09/21/18 19:46 Temperature 36.8 C Temperature Source Oral Sepsis Recent Fever Within 48 Hours No Sepsis New/Unexplained Change in Mental Status No Sepsis Action Taken by Nursing No Action Required Pulse Rate 78 Pulse Rate [Right Finger] 80 Respiratory Rate 20 18 Respiratory Effort / Characteristics Non-Labored Spontaneous Non-Labored Spontaneous Respiratory Depth Normal Normal Blood Pressure 140/72 124/73 Blood Pressure [Right Arm] 144/73 H Blood Pressure Mean 94 90 Blood Pressure Mean [Right Arm] 96 Pulse Oximetry 96 97 Oxygen Delivery Method Room Air Room Air 09/21/18 20:00 09/21/18 20:01 09/21/18 20:20 Temperature Temperature Source Sepsis Recent Fever Within 48 Hours Sepsis New/Unexplained Change in Mental Status Sepsis Action Taken by Nursing Pulse Rate 73 74 67 Pulse Rate [Right Finger] Respiratory Rate 27 H 21 19 Respiratory Effort / Characteristics Respiratory Depth Blood Pressure 142/108 H Blood Pressure [Right Arm] Blood Pressure Mean 119 Blood Pressure Mean [Right Arm] Pulse Oximetry 93 Oxygen Delivery Method Room Air 09/21/18 20:31 09/21/18 20:40 Temperature Temperature Source Sepsis Recent Fever Within 48 Hours Sepsis New/Unexplained Change in Mental Status Sepsis Action Taken by Nursing Pulse Rate 69 69 Pulse Rate [Right Finger] Respiratory Rate 15 14 Respiratory Effort / Characteristics Respiratory Depth Blood Pressure 140/78 Blood Pressure [Right Arm] Blood Pressure Mean 98 Blood Pressure Mean [Right Arm] Pulse Oximetry 98 Oxygen Delivery Method Room Air GENERAL: Awake, alert, uncomfortable-appearing on left side HENT: Normocephalic. Oropharynx unremarkable. Slight contusion to right face, 2cm on maxillary check R. EYES: Normal conjunctiva. Sclera non-icteric. NECK: Supple. No nuchal rigidity. trachea midline RESPIRATORY: Clear to auscultation. No wheezes. Normal respiratory effort. CARDIAC: Normal rate. Normal rhythm. Extremities warm and well perfused. GI: Soft, non-distended. No tenderness to palpation. No rebound or guarding. RECTAL: Deferred. MUSCULOSKELETAL: Tenderness to right shoulder and elbow, left wrist, knee leg and ankle, right sided chest wall pain, right flank pain. LOWER EXTREMITIES: Calves are equal size bilaterally and non-tender. No edema NEURO: Normal sensorium. No sensory or motor deficits noted. No facial droop. SKIN: Warm and dry. No rash or jaundice noted. Course 162: Past medical records reviewed. The patient was evaluated in room B3A, and a complete history and physical examination were performed. 3: I reviewed the patient's case with Dr. Bulmaro Sweet [facility] [place]. She will evaluate the patient for further management. Administered Medications Discontinued Medications Acetaminophen (Ofirmev) 1,000 mg IV ONE STA Stop: 09/21/18 16:29 Last Admin: 09/21/18 17:30 Dose: 1,000 mg Lidocaine (Lidoderm 5%) 1 patch TD ONE STA Stop: 09/21/18 19:52 Last Admin: 09/21/18 20:01 Dose: 1 patch Tramadol HCl (Ultram) 50 mg PO NOW STA Stop: 09/21/18 19:53 Last Admin: 09/21/18 20:01 Dose: 50 mg Medical Decision Making Differential Diagnosis Differential includes acute cardiac dysrhythmia, microinfarction, CVA, TIA, dehydration, anemia, electrolyte disturbance, seizure, trauma, intracranial bleeding, acute vascular catastrophe, thoracic aortic dissection, PE, abdominal aortic aneurysm rupture, ectopic rupture. Medical Records Attestation: I reviewed the patient's medical records. Home Medications Current Medication List: was personally reviewed by me Laboratory Data Attestation: I reviewed the patient's lab results. Result diagrams: 09/21/18 16:53 09/21/18 16:53 Lab Results 09/21/18 09/21/18 09/21/18 Range/Units 16:53 16:53 16:58 WBC 8.56 (4.8-10.8) K/uL RBC 4.51 (4.2-5.4) M/uL Hgb 14.4 (12.0-16.0) g/dL POC Hgb 14.3 (12.0-16.0) g/dl Hct 43.0 (37-47) % POC Hct 42 (37-47) % MCV 95.3 (80-100) fL MCH 31.9 (25-34) pg MCHC 33.5 (32-36) g/dL RDW Std Deviation 47.7 H (36.4-46.3) fL RDW Coeff of Radha 13.7 (11.5-14.5) % Plt Count 223 (130-400) K/uL MPV 11.1 H (7.4-10.4) fL Immature Gran % (Auto) 0.2 % Neut % (Auto) 54.4 % Lymph % (Auto) 32.0 % [place] % (Auto) 9.8 % Eos % (Auto) 3.2 % Baso % (Auto) 0.4 % Immature Gran # (Auto) 0.02 (0.00-0.02) K/uL Neut # (Auto) 4.66 (1.4-6.5) K/uL Lymph # (Auto) 2.74 (1.2-3.4) K/uL [place] # (Auto) 0.84 H (0.11-0.59) K/uL Eos # (Auto) 0.27 (0-0.5) K/uL Baso # (Auto) 0.03 (0-0.2) K/uL POC Sodium 145 H (135-144) mEq/L Sodium 142 (136-145) mmol/L POC Potassium 4.1 (3.3-5.0) mEq/L Potassium 3.7 (3.5-5.1) mmol/L POC Chloride 106 (101-112) mEq/L Chloride 108 H (98-107) mmol/L Carbon Dioxide 25 (21-32) mmol/L POC Total CO2 26 (24-31) mEq/l Anion Gap 9.0 (3-11) POC Anion Gap 19.0 (16-25) mmol/L POC BUN 19 H (7-18) mg/dl BUN 19 H (7-18) mg/dl Creatinine 1.34 H (0.6-1.2) mg/dl POC Creatinine 1.2 (0.6-1.3) mg/dl Est Cr Clr Drug Dosing 29.5 ml/min Est GFR ( Amer) 41.8 Est GFR (Non-Af Amer) 36.0 BUN/Creatinine Ratio 13.8 (10-20) Glucose 89 (70-99) mg/dl POC Glucose (other) 94 (70-99) mg/dl Calcium 9.3 (8.5-10.1) mg/dl POC Ioniz Calcium Camila 1.12 (1.12-1.32) mmol/l Total Bilirubin 0.7 (0.2-1) mg/dl AST 25 (15-37) U/L ALT 19 (12-78) U/L Alkaline Phosphatase 72 (45-117) U/L Total Protein 7.6 (6.4-8.2) gm/dl Albumin 3.6 (3.4-5.0) gm/dl Globulin 4.0 (2.5-4.0) gm/dl Albumin/Globulin Ratio 0.9 (0.9-2) Lipase 169 (73-393) U/L Imaging Data Radiologist's Impression: Radiology results as stated below per my review and the radiologist's interpretation: CT head/brain wo con CLINICAL HISTORY: 83 years-old Female with fall. Acute head injury status post fall TECHNIQUE: Multiple axial CT images of the head were obtained without contrast. A dose lowering technique was utilized adhering to the principles of ALARA. COMPARISON: CT cervical spine of same day, CT head 10/26/2015. FINDINGS: No acute intracranial hemorrhage, midline shift, intracranial mass, hydrocephalus, territorial ischemia or abnormal extra-axial collection. Age- related involutional changes. Moderate to extensive chronic microvascular ischemic changes. Senescent calcifications of the lentiform nuclei and mid cerebellum within the region of the dentate nuclei. The calvarium is intact. The paranasal sinuses, mastoid air cells, and middle ear cavities are clear. IMPRESSION: No acute intracranial abnormality or calvarial fracture. The above report was generated using voice recognition software. It may contain grammatical, syntax or spelling errors. Electronically signed by: Froylan Kuo M.D. 09/21/2018 6:[address] cervical spine wo con CLINICAL HISTORY: 83 years-old Female presenting with fall. TECHNIQUE: Multidetector CT of the cervical spine was performed 1 IV contrast: None. A dose lowering technique was used consistent with the principles of ALARA (as low as reasonably achievable). COMPARISON: 09/17/2010. CT DOSE (mGy.cm): The estimated cumulative dose is 2196.7. FINDINGS: [employer] topogram: Left subclavian implanted cardiac defibrillator with leads to the right atrium and right ventricular apex. An additional abandoned lead may be present. A biliary ductal stent may be present. Total left hip arthroplasty. Scoliosis. Normal cervical lordosis. Extensive multilevel degenerative changes. Vertebral bodies maintain normal height and alignment allowing for degenerative change. Significant multilevel intervertebral disc height loss most severe at C4-5 and C6-7. Disc osteophyte complexes noted to varying degrees at nearly every level. Prominent anterior osteophytosis. No advanced facet arthropathy. Mild facet arthropathy noted in the upper cervical spine on the left. Osseous neural foraminal narrowing resulting from uncovertebral hypertrophy and facet arthropathy results at C3-4 bilaterally to a mild degree, right greater than left at C5-6, and mild bilaterally at C6-7. No acute fracture or subluxation. Degenerative changes of the atlantodental articulation. Visualized portion of the skull base is intact. Minimal soft tissue in the external auditory canals likely cerumen. Paraspinal soft tissues within normal limits. IMPRESSION: 1. No acute osseous injury of the cervical spine. 2. Multilevel degenerative changes. Electronically signed by: Fabian Marrufo M.D. 09/21/2018 6:[address] thoracic spine wo con, CT lumbar spine wo con HISTORY: 83 years-old Female fall acute made and low back pain status post fall COMPARISON: CT thoracolumbar spine 08/13/2018 TECHNIQUE: Multiple axial CT images of the thoracic and lumbar spine were obtained without the use of IV contrast. A dose lowering technique was used consistent with the principals of ALARA. FINDINGS: THORACIC: No compression deformity with kyphoplasty changes at T12. Demineralized appearance of the bones. Unchanged mild retropulsion at this level. No acute fracture or subluxation of the thoracic spine identified. Multilevel moderate to severe intervertebral disc space narrowing with advanced spondylitic spurring and facet arthrosis. Evaluation of the central canal and neuroforamina is suboptimally assessed by CT. No acute rib fracture identified. Dextroscoliosis. No prevertebral soft tissue swelling. Subsegmental bibasilar atelectasis/ scarring. Calcification the thoracic aortic arch. LUMBAR: Demineralized appearance of the bones. Remote compression deformity is unchanged retropulsion and kyphoplasty at T12. Levoscoliosis of the lower lumbar spine. No acute sacral insufficiency fracture. No acute compression deformity or subluxation. Severe multilevel intervertebral disc space narrowing with spondylitic spurring and advanced facet arthrosis with ligamentum flavum thickening. Evaluation of the central canal and neuroforamina is better assessed by MRI. Multilevel central canal and foraminal narrowing is noted. Posterior disc osteophyte complex formations are also noted. 3 mm degenerative retrolisthesis L2 on L3 is unchanged. No prevertebral soft tissue swelling. Remote fracture of the right transverse process L2. Degenerative changes noted about the bilateral SI joints. IMPRESSION: 1. No acute fracture or subluxation of the thoracic or lumbar spine. 2. Remote compression deformity with kyphoplasty changes at T12. 3. Demineralized appearance of the bones with advanced degenerative changes as above. The above report was generated using voice recognition software. It may contain grammatical, syntax or spelling errors. Electronically signed by: Froylan Kuo M.D. 09/21/2018 6:[address] thoracic spine wo con, CT lumbar spine wo con HISTORY: 83 years-old Female fall acute made and low back pain status post fall COMPARISON: CT thoracolumbar spine 08/13/2018 TECHNIQUE: Multiple axial CT images of the thoracic and lumbar spine were obtained without the use of IV contrast. A dose lowering technique was used consistent with the principals of ALARA. FINDINGS: THORACIC: No compression deformity with kyphoplasty changes at T12. Demineralized appearance of the bones. Unchanged mild retropulsion at this level. No acute fracture or subluxation of the thoracic spine identified. Multilevel moderate to severe intervertebral disc space narrowing with advanced spondylitic spurring and facet arthrosis. Evaluation of the central canal and neuroforamina is suboptimally assessed by CT. No acute rib fracture identified. Dextroscoliosis. No prevertebral soft tissue swelling. Subsegmental bibasilar atelectasis/ scarring. Calcification the thoracic aortic arch. LUMBAR: Demineralized appearance of the bones. Remote compression deformity is unchanged retropulsion and kyphoplasty at T12. Levoscoliosis of the lower lumbar spine. No acute sacral insufficiency fracture. No acute compression deformity or subluxation. Severe multilevel intervertebral disc space narrowing with spondylitic spurring and advanced facet arthrosis with ligamentum flavum thickening. Evaluation of the central canal and neuroforamina is better assessed by MRI. Multilevel central canal and foraminal narrowing is noted. Posterior disc osteophyte complex formations are also noted. 3 mm degenerative retrolisthesis L2 on L3 is unchanged. No prevertebral soft tissue swelling. Remote fracture of the right transverse process L2. Degenerative changes noted about the bilateral SI joints. IMPRESSION: 1. No acute fracture or subluxation of the thoracic or lumbar spine. 2. Remote compression deformity with kyphoplasty changes at T12. 3. Demineralized appearance of the bones with advanced degenerative changes as above. The above report was generated using voice recognition software. It may contain grammatical, syntax or spelling errors. Electronically signed by: Froylan Kuo M.D. 09/21/2018 6:[address] chest w con CLINICAL HISTORY: 83 years-old Female presenting with fall. TECHNIQUE: Multidetector CT imaging of the chest was performed after the administration of intravenous contrast. IV contrast: 119 mL of Optiray 320. A dose lowering technique was used consistent with the principles of ALARA (as low as reasonably achievable). COMPARISON: 09/11/2014. CT DOSE (mGy.cm): The estimated cumulative dose is 2196.76. FINDINGS: M[employer] topogram: Left subclavian implanted cardiac for bladder with leads to the right atrium and right ventricular apex. An additional band and lead may be present. Common bile duct stent. Total left hip are the plasty. On soft tissue windows, thyroid atrophic or absent. No axillary, supraclavicular , hilar, or mediastinal lymphadenopathy. Atherosclerosis of the aorta. Left subclavian implanted cardiac for bladder with leads to the right atrium, right ventricular apex, and coronary sinus. Mild coronary artery calcification. Normal heart size. No pericardial or pleural effusion. Pneumobilia. Bile duct stent partially visualized. 7 mm cystic lesion in the tail the pancreas, likely small side branch intraductal papillary mucinous neoplasm or mucinous cyst. On lung windows, no pneumothorax. Central airways patent. Minimal dependent changes likely atelectasis. Few small calcified granulomata. On bone windows, degenerative changes of the spine. Post procedural changes of kyphoplasty at T12. Osteopenia. Significant degenerative changes degrades evaluation for acute osseous injury. Nondisplaced acute fracture of the anterior right fourth and fifth ribs. Sternum grossly intact. Advanced degenerative changes of the glenohumeral joints. IMPRESSION: 1. No acute intrathoracic injury. 2. Acute nondisplaced fractures of the anterior right fourth and fifth ribs. 3. Additional chronic findings as above. Electronically signed by: Fabian Marrufo M.D. 09/21/2018 6:[address] AND PELVIS CT WITH IV CONTRAST CT DOSE: 2196.76 mGy.cm HISTORY: Acute abdominal trauma status post fall fall TECHNIQUE: Multiaxial CT images of the abdomen and pelvis were performed following the use of intravenous contrast. A dose lowering technique was utilized adhering to the principles of ALARA. COMPARISON STUDY: CT abdomen and pelvis 08/11/2018, 08/05/2018. FINDINGS: Mild dependent subsegmental bibasilar atelectasis. 6 mm pulmonary nodule of the inferior segment lingula, image 316 series 8, definitively seen on comparison however there was consolidation within this area on prior study. Nodule abuts the major fissure. No pneumatosis or pneumoperitoneum. Imaged inferior cardiac chambers are mildly enlarged with coronary arterial disease. Partially imaged pacer leads. Prior cholecystectomy. Pneumobilia redemonstrated about the intrahepatic biliary tree and common bile duct. Stent of the common bile duct is noted with distal portion terminating within the duodenum, unchanged. Generalized pancreatic atrophy. Coarse calcifications about the pancreatic parenchyma suggests chronic pancreatitis. Terminate millimeters cystic focus of the pancreatic tail suggests possible sidebranch IPMN. Mild thickening of the bilateral adrenal glands. Mild atrophy of the left kidney. Mild nonspecific bilateral perinephric stranding. No renal calculi or obstructive uropathy. The pelvic structures are suboptimally visualized secondary to streak artifact from left hip arthroplasty. Prior hysterectomy. No adnexal mass lesions. Extensive calcification of the aorta without aneurysm. Ectasia of the aorta measures up to 2.3 cm. No adenopathy. No bowel obstruction. Mildly enlarged duodenal lymph nodes measure up to 1 cm in short axis. Colonic diverticulosis without acute diverticulitis. No ascites or mesenteric inflammatory changes. Soft tissues are unremarkable. Atrophy of the paraspinal musculature. Demineralized appearance of the bones. Multilevel advanced facet arthrosis with spondylitic spurring and intervertebral disc space narrowing. Left hip arthroplasty. Remote compression deformity with kyphoplasty changes at T12. No definite acute compression deformity of the lumbar spine. Partially imaged metallic lead noted about the inferior left breast. IMPRESSION: 1. No acute intra-abdominal or intrapelvic abnormality identified. 2. Prior cholecystectomy with satisfactory positioning of the common bile duct stent. Persistent pneumobilia compatible with stent patency. 3. Colonic diverticulosis without acute diverticulitis. 4. No acute fracture identified. 5. 6 mm solid nodule of the inferior segment lingula. 6. Additional findings as above. Please refer to below summary of Fleischner criteria recommendations for follow- up of incidental CT nodules (Amy Bustos, Guidelines for management of small pulmonary nodules detected on CT scans: A statement from the Fleischner Society , Radiology 237: [phone].) SOLID NODULES Solitary nodule size: 6-8 mm * Low risk patients: follow-up at 6-12 months, then consider further follow- up at 18-24 months * high risk patients: initial follow-up CT at 6-12 months and then at 18-24 months if no change Note: newly detected indeterminate nodule in persons 35 years of age or older. * Low risk patients: minimal or absent history of smoking and/or other known risk factors * high risk patients: history of smoking or of other known risk factors (e.g. first degree relative with lung cancer, or exposure to asbestos, radon, uranium) * if a nodule up to 8 mm is partly solid or is ground glass further follow-up is required after 24 months to exclude possible slow growing adenocarcinoma (MARY GRACE ) The above report was generated using voice recognition software. It may contain grammatical, syntax or spelling errors. Electronically signed by: Froylan Kuo M.D. 09/21/2018 6:23 PM XR elbow RT 2V, XR shoulder RT min 2V routine HISTORY: 83 years-old Female fall acute right elbow and shoulder pain status post fall COMPARISON: None available TECHNIQUE: 3 views of the right elbow and 2 views of the right shoulder FINDINGS: ELBOW: Mildly demineralized appearance of the bones. Degenerative changes about the elbow. No acute fracture or dislocation. ORIF hardware about the distal radius, partially imaged. No large joint effusion or opaque foreign body. Surgical clips project over the right breast. SHOULDER: Demineralized appearance of the bones. Widening of the AC joint. Limited study secondary to the AP and internal rotation views submitted. At least moderate degenerative changes of the glenohumeral joint. No definite acute fracture or dislocation identified. IMPRESSION: 1. No acute fracture or dislocation identified. 2. Limited evaluation of the shoulder secondary to positioning. If of further clinical concern for underlying occult fracture, consider repeat 3 view study of the shoulder. The above report was generated using voice recognition software. It may contain grammatical, syntax or spelling errors. Electronically signed by: Froylan Kuo M.D. 09/21/2018 5:48 PM XR elbow RT 2V, XR shoulder RT min 2V routine HISTORY: 83 years-old Female fall acute right elbow and shoulder pain status post fall COMPARISON: None available TECHNIQUE: 3 views of the right elbow and 2 views of the right shoulder FINDINGS: ELBOW: Mildly demineralized appearance of the bones. Degenerative changes about the elbow. No acute fracture or dislocation. ORIF hardware about the distal radius, partially imaged. No large joint effusion or opaque foreign body. Surgical clips project over the right breast. SHOULDER: Demineralized appearance of the bones. Widening of the AC joint. Limited study secondary to the AP and internal rotation views submitted. At least moderate degenerative changes of the glenohumeral joint. No definite acute fracture or dislocation identified. IMPRESSION: 1. No acute fracture or dislocation identified. 2. Limited evaluation of the shoulder secondary to positioning. If of further clinical concern for underlying occult fracture, consider repeat 3 view study of the shoulder. The above report was generated using voice recognition software. It may contain grammatical, syntax or spelling errors. Electronically signed by: Froylan Kuo M.D. 09/21/2018 5:48 PM XR wrist LT min 3V routine CLINICAL HISTORY: 83 years-old Female presenting with fall. TECHNIQUE: Frontal, bilateral oblique, and lateral views of the left wrist were obtained. COMPARISON: Plain radiographs of the left hand from 2015. FINDINGS: Osteopenia. This limits evaluation for nondisplaced fracture. Advanced degenerative changes of the radial aspect of the carpus further limits evaluation for acute osseous injury. Joint space loss, osteophytosis, subchondral sclerosis and cystic change at the scaphoid-trapezium, trapezium- first metacarpal, and articulations with the base of the second metacarpal. These are similar though slightly advanced from the prior exam. Degenerative change results in chronic malalignment. Joint space loss though no acute subluxation is apparent. IMPRESSION: Allowing for the degree of osteopenia and degenerative change in the carpus, no radiographic evidence of acute osseous injury. If there is continuing clinical concern, cross-sectional imaging could be obtained. Electronically signed by: Fabian Marrufo M.D. 09/21/2018 5:46 PM XR knee LT 3V, XR tibia fibula LT 2V HISTORY: 83 years-old Female fall acute left lower leg pain status post fall COMPARISON: Left ankle radiographs of same day TECHNIQUE: 3 views of the left knee and 2 views of the left tibia/fibula. FINDINGS: KNEE: Mildly demineralized appearance of the bones. Mild tricompartmental joint space narrowing with marginal spurring. No acute fracture, dislocation or opaque foreign body. Mild marginal spurring of the tibial spines. No large joint effusion. Mild circumferential soft tissue swelling. TIBIA/FIBULA: No acute fracture, dislocation or opaque foreign body. IMPRESSION: 1. No acute fracture or dislocation. 2. Mild circumferential soft tissue swelling about the knee. The above report was generated using voice recognition software. It may contain grammatical, syntax or spelling errors. Electronically signed by: Froylan Kuo M.D. 09/21/2018 5:45 PM XR knee LT 3V, XR tibia fibula LT 2V HISTORY: 83 years-old Female fall acute left lower leg pain status post fall COMPARISON: Left ankle radiographs of same day TECHNIQUE: 3 views of the left knee and 2 views of the left tibia/fibula. FINDINGS: KNEE: Mildly demineralized appearance of the bones. Mild tricompartmental joint space narrowing with marginal spurring. No acute fracture, dislocation or opaque foreign body. Mild marginal spurring of the tibial spines. No large joint effusion. Mild circumferential soft tissue swelling. TIBIA/FIBULA: No acute fracture, dislocation or opaque foreign body. IMPRESSION: 1. No acute fracture or dislocation. 2. Mild circumferential soft tissue swelling about the knee. The above report was generated using voice recognition software. It may contain grammatical, syntax or spelling errors. Electronically signed by: Froylan Kuo M.D. 09/21/2018 5:45 PM XR ankle LT 2V CLINICAL HISTORY: 83 years-old Female presenting with fall. TECHNIQUE: Frontal and lateral views of the left ankle were obtained. COMPARISON: Plain radiographs of the left lower leg from 2015. FINDINGS: Widening of the lateral aspect of the ankle mortise. Osteopenia. No gross evidence of an ankle fracture. Prominent enthesophyte at the origin of plantar fascia. No advanced degenerative change. Atherosclerosis. IMPRESSION: Widening of the lateral ankle mortise concerning for soft tissue injury. No radiographic evidence of acute osseous injury. Electronically signed by: Fabian Marrufo M.D. 09/21/2018 5:43 PM Blood Pressure Blood Pressure Findings: Elevated blood pressure Blood Pressure Disposition: further management by hospitalist Head Trauma GCS Score: 15 MDM Narrative 83-year-old female suffered a mechanical fall while visiting here in the hospital tripped in a wheelchair. Ground level. Significant bruising to the left lower leg and some pain on the right axilla and right chest right flank and is some slight bruising on the right face. Some pain of the right shoulder and elbow along with some left wrist pain. Basic labs were obtained and CT imaging was obtained along with x-rays. X-rays show soft tissue injury but no acute evidence of osseous injury. For comfort will place in a right upper extremity sling and left wrist splint and recommend outpatient follow-up. Do not believe this needs a syncopal workup at this time. Given pain control here. Laboratory studies unremarkable and kidney function at baseline. CT of the cervical spine is within normal limits as is the head CT. No intra- abdominal pathology newly noted. There are 2 right-sided rib fractures at 4 and 5. No acute thoracic or lumbar spine fractures newly noted. Concern given her pain control and ability to take care of herself at home will admit for further pain control and possible placement for rehabilitation. Discussed with the hospitalist. Impression & Plan Closed rib fracture, Fall, Contusion of left leg, Acute pain of right shoulder Discharge Plan Visit Data Chief Complaint: Fall ED Provider: Kaushik Tabor Discharge Problem: Closed rib fracture, Fall, Contusion of left leg, Acute pain of right shoulder Patient Disposition: Being Evaluated by Hospitalist Forms Stand Alone Forms: [facility] [employer] Prescriptions Prescriptions: No Action atorvastatin 40 mg Tablet 40 mg PO HS RF: 0 carvedilol 12.5 mg Tablet 12.5 mg PO QAM RF: 0 cyanocobalamin (vitamin B-12) [Vitamin B-12] 1,000 mcg Tablet 1,000 mcg PO QAM RF: 0 hydralazine 25 mg Tablet 25 mg PO QAM RF: 0 lisinopril 10 mg Tablet 10 mg PO QAM RF: 0 levothyroxine 150 mcg Tablet 150 mcg PO QAM RF: 0 oxybutynin chloride 5 mg Tablet 5 mg PO QAM RF: 0 glipizide 5 mg Tablet 5 mg PO QAM RF: 0 glucosamine-chondroitin [Osteo Bi-Flex] 250-200 mg Tablet 1 tab PO QAM RF: 0 xeqearou-wqr-MI-lycopen-lutein [Centrum Silver] 0.4-300-250 mg-mcg-mcg Tablet 1 tab PO QAM RF: 0 cholecalciferol (vitamin D3) [Vitamin D3] 2,000 unit Tablet 2,000 unit PO QAM RF: 0 diclofenac sodium 1 % gel 4 gm TOP QID PRN (Reason: pain) Qty: 100 RF: 0 aspirin-caffeine [Back and Body Pain Reliever] 500-32.5 mg Tablet 1 tab PO UD RF: 0 Referrals Referrals: Rome Castellanos MD [Primary Care Provider] - The scribe's documentation has been prepared under my direction and personally reviewed by me in its entirety. I confirm that the note above accurately reflects all work, treatment, procedures, and medical decision making performed by me.
--- NOTE | 2018-09-21 20:49 | XRay Report ---
XR shoulder LT min 2V routine CLINICAL HISTORY: 83 years-old Female presenting with fall, no shoulder ROM, eval for fx/dislocation. TECHNIQUE: External rotation, internal rotation, Grashey views of the left shoulder were obtained. COMPARISON: Chest x-ray from 06/27/2015. FINDINGS: Left subclavian implanted cardiac defibrillator noted. Acromioclavicular and glenohumeral joints shravan ruent. However, significant osteophytosis, joint space loss, and subchondral sclerosis evident at the glenohumeral joint. Milder degenerative changes of the acromioclavicular joint. No subluxation or de formity of the humeral head. No acute fracture or malalignment. Osteopenia suspected. IMPRESSION: 1. No acute osseous injury. 2. Advanced degenerative changes of the glenohumeral joint. Electronically signed by: Fabian Marrufo M.D. 09/21/2018 8:48 PM
[2018-09-21] MEDS ORDERED: GLUCAGON FOR INJ 1 MG VIAL SQ PRN (21:22)
[2018-09-21] MEDS ORDERED: CARBOHYDRATES FOR HYPOGLYCEMIA PO PRN (21:22)
[2018-09-21] MEDS ORDERED: ONDANSETRON INJ 2 MG/ML 2 ML VIAL IV PRN (21:22)
[2018-09-21] MEDS: ACETAMINOPHEN 325 MG TAB PO PRN (22:08)
[2018-09-21] MEDS: ATORVASTATIN 40 MG TAB PO SCH (22:09)
[2018-09-21] MEDS: INSULIN ASPART 100 UNITS/ML 3 ML PEN SC SCH (22:09)
[2018-09-21] MEDS: ENOXAPARIN INJ 30 MG/0.3 ML SYR SQ SCH (23:20)
[2018-09-22] MEDS: TRAMADOL HCL 50 MG TABLET PO PRN ×3 (02:23→15:50)
[2018-09-22] MEDS: LEVOTHYROXINE SODIUM 150 MCG TABLET PO SCH (06:37)
[2018-09-22] MEDS: ACETAMINOPHEN 325 MG TAB PO PRN ×2 (06:39→12:12)
[2018-09-22 08:42] LABS: Basophils # (auto) 0.02 K/uL (0-0.2); Basophils % (auto) 0.3 %; Eosinophils % (auto) 3.8 %; Hematocrit (blood only) 40.7 % (37-47); Hemoglobin 13.2 g/dL (12.0-16.0); Immature Granulocytes # (auto) 0.01 K/uL (0.00-0.02); Immature Granulocytes % (auto) 0.1 %; Lymphocytes % (auto) 37.1 %; Mean Corpuscular Volume 97.1 fL (80-100); Mean Platelet Volume 10.3 fL (7.4-10.4); Monocytes % (auto) 10.2 %; Neutrophils # (auto) 3.78 K/uL (1.4-6.5); Neutrophils % (auto) 48.5 %; Platelet Count 196 K/uL (130-400); RDW Coefficient of Variation 13.9 % (11.5-14.5); RDW Standard Deviation 49.5 fL (36.4-46.3); Red Blood Count 4.19 M/uL (4.2-5.4); White Blood Count 7.81 K/uL (4.8-10.8)
[2018-09-22 08:43] LABS: Mean Corpuscular Hgb Conc 32.4 g/dL (32-36)
[2018-09-22 08:56] LABS: BUN Creatinine Ratio 12.7 (10-20); Calcium 8.4 mg/dl (8.5-10.1); Creatinine Clr Calc Pharmacy 31.2 ml/min; Est GFR (African American) 44.1; Est GFR (Non-African American) 38.1; Magnesium 2.3 mg/dl (1.8-2.4); Potassium 3.5 mmol/L (3.5-5.1)
[2018-09-22] MEDS: OXYBUTYNIN CHLORIDE 5 MG TAB PO SCH (08:56)
[2018-09-22] MEDS: LISINOPRIL 10 MG TAB PO SCH (08:56)
[2018-09-22] MEDS: CYANOCOBALAMIN 500 MCG TABLET (VITAMIN B-12) PO SCH (08:56)
[2018-09-22] MEDS: CARVEDILOL 12.5 MG TAB PO SCH (08:56)
[2018-09-22] MEDS: CHOLECALCIFEROL 1,000 UNITS TAB PO SCH (08:57)
[2018-09-22] MEDS: PANTOprazole 40 MG TAB PO SCH (08:57)
[2018-09-22] MEDS: DICLOFENAC SOD 1% GEL 100 GM TUBE EXT PRN ×2 (08:57→20:35)
[2018-09-22] MEDS: CEROVITE ADV FORMULA TAB PO SCH (08:59)
[2018-09-22] MEDS ORDERED: NON-FORMULARY MEDICATION (Glucosamine-Chondroitin [Osteo Bi-Flex] 1 TAB) PO SCH (09:00)
[2018-09-22] MEDS: ENOXAPARIN INJ 30 MG/0.3 ML SYR SQ SCH ×2 (09:00→20:06)
[2018-09-22] MEDS ORDERED: KETOROLAC TROMETHAMINE 15 MG/ML VIAL IV STA (09:19)
[2018-09-22] MEDS: INSULIN ASPART 100 UNITS/ML 3 ML PEN SC SCH ×4 (09:20→20:35)
--- NOTE | 2018-09-22 09:29 | Hospitalist Progress Note ---
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 Right rib fractures with acute non-displaced fractures of the anterior right fourth and fifth ribs as well as a pulmonary nodule. Left knee pain Witnessed mechanical fall without loss of consciousness. CT imaging of the head, cervical spine, thoracic and lumbar spine, chest/abdomen /pelvis as well as x-rays of the right elbow, right shoulder, left wrist, left knee, left tib-fib, and left ankle Continue pain control with Tylenol and tramadol. Start oxycodone as needed as needed for the pain for better pain control, avoid NSAID because history of duodenal ulceration, start PPI, Ordered incentive spirometry, encourage pain control and out of bed to the chair , continue PT/OT. Left shoulder pain and decreased range of motion, xray showed: Advanced degenerative changes of the glenohumeral joint, no acute fracture, Pulmonary nodule: 6 mm seen in inferior segment lingula. Recommend outpatient follow-up. Hypertension: At home is on Coreg, lisinopril, hydralazine. Continued. Hyperlipidemia: At home is on atorvastatin 40. Continued. Hypothyroidism: At home is on levothyroxine 150 mcg. Continued. CKD stage III: Initial Cr 1.34, similar to recent values. Chronic pancreatitis: No current abdominal pain. Admit lipase 169. Diabetes type 2: HbA1c on was 5.9. At home is on glipizide. Here on insulin sliding scale. Nonischemic cardiomyopathy: Pacemaker placement in 2007. Severe osteoarthritis, degenerative disc disease, and spinal stenosis: Continue vitamin D, Osteo Bi-Flex, oxybutynin, diclofenac, and aspirincaffeine combo. Duodenal ulcer: As seen on EGD on 07Aug2018. Was positive for C diff on 10Aug2018. Completed antibiotics on . No present diarrhea. Possible mild CKD, stage II-III with creatinine 1.34, will continue follow-up, Full code, PT OT, renal case manager for discharge plan, Subjective Reports significant pain in the right chest wall, associated with left knee pain , Afraid to move because of pain will getting worse, Review of Systems Constitutional: negative weakness, mild fatigue Respiratory: no cough, sputum, wheezing, or dyspnea on exertion Cardiac: No chest pain, No orthopnea, Abdomen: No pain, No nausea, No vomiting, No diarrhea, No constipation, No GI bleeding Musculoskeletal: Left knee pain that mentioned in the above, no other joint pain , : No dysuria, No urinary frequency, No incontinence, No hematuria Neurologic: No paralysis, No weakness, No numbness/tingling, No vertigo, No balance problems Psychiatric: No depression symptoms, No anhedonism, Heme: No abnormal bleeding/bruising, No clotting problems, No swollen lymph nodes, No night sweats Skin: No rash, No itch, Physical Exam 2 Vital Signs (Past 24 Hours): Last Vital Signs Temp 36.9 C 09/22/18 08:03 Pulse 62 09/22/18 08:03 Resp 18 09/22/18 08:03 BP 136/81 09/22/18 08:03 Pulse Ox 93 09/22/18 08:03 Physical Exam: General Appearance: WD/WN, no apparent distress, however in pain, Eyes: normal inspection, PERRL, EOMI, sclerae normal ENT: normal ENT inspection, hearing grossly normal, pharynx normal Neck: supple, no adenopathy, thyroid normal, no JVD, no carotid bruits, trachea midline Respiratory/Chest: right Chest wall obvious tender in palpation, left anterior below knee mild swelling minimal red and tender in palpation , mild decreased breath sounds, no respiratory distress, no accessory muscle use, breath sounds, rales, wheezing Cardiovascular: regular rate, rhythm, no JVD, no murmur Abdomen: normal bowel sounds, non tender, soft, no organomegaly, Extremities: Left knee no "tender is in the above, normal range of motion, normal inspection, no pedal edema, no calf tenderness, normal capillary refill , pelvis stable, Neurologic/Psychiatric: instantizer operator II-XII nml as tested, no motor/sensory deficits, alert, normal mood/affect, oriented x 3 Skin: warm/dry, no rash Lymphatic: no adenopathy Results & Data Laboratory Results Laboratory Results - last 24 hr 09/21/18 09/21/18 09/21/18 16:53 16:53 16:58 WBC 8.56 RBC 4.51 Hgb 14.4 POC Hgb 14.3 Hct 43.0 POC Hct 42 MCV 95.3 MCH 31.9 MCHC 33.5 RDW Std Deviation 47.7 H RDW Coeff of Radha 13.7 Plt Count 223 MPV 11.1 H Immature Gran % (Auto) 0.2 Neut % (Auto) 54.4 Lymph % (Auto) 32.0 Dolores % (Auto) 9.8 Eos % (Auto) 3.2 Baso % (Auto) 0.4 Immature Gran # (Auto) 0.02 Neut # (Auto) 4.66 Lymph # (Auto) 2.74 Dolores # (Auto) 0.84 H Eos # (Auto) 0.27 Baso # (Auto) 0.03 POC Sodium 145 H Sodium 142 POC Potassium 4.1 Potassium 3.7 POC Chloride 106 Chloride 108 H Carbon Dioxide 25 POC Total CO2 26 Anion Gap 9.0 POC Anion Gap 19.0 POC BUN 19 H BUN 19 H Creatinine 1.34 H POC Creatinine 1.2 Est Cr Clr Drug Dosing 29.5 Est GFR ( Amer) 41.8 Est GFR (Non-Af Amer) 36.0 BUN/Creatinine Ratio 13.8 Glucose 89 POC Glucose POC Glucose (other) 94 Calcium 9.3 POC Ioniz Calcium Camila 1.12 Magnesium Total Bilirubin 0.7 AST 25 ALT 19 Alkaline Phosphatase 72 Total Protein 7.6 Albumin 3.6 Globulin 4.0 Albumin/Globulin Ratio 0.9 Lipase 169 09/21/18 09/22/18 09/22/18 22:07 07:41 08:30 WBC 7.81 RBC 4.19 L Hgb 13.2 POC Hgb Hct 40.7 POC Hct MCV 97.1 MCH 31.5 MCHC 32.4 RDW Std Deviation 49.5 H RDW Coeff of Radha 13.9 Plt Count 196 MPV 10.3 Immature Gran % (Auto) 0.1 Neut % (Auto) 48.5 Lymph % (Auto) 37.1 Dolores % (Auto) 10.2 Eos % (Auto) 3.8 Baso % (Auto) 0.3 Immature Gran # (Auto) 0.01 Neut # (Auto) 3.78 Lymph # (Auto) 2.90 Dolores # (Auto) 0.80 H Eos # (Auto) 0.30 Baso # (Auto) 0.02 POC Sodium Sodium POC Potassium Potassium POC Chloride Chloride Carbon Dioxide POC Total CO2 Anion Gap POC Anion Gap POC BUN BUN Creatinine POC Creatinine Est Cr Clr Drug Dosing Est GFR ( Amer) Est GFR (Non-Af Amer) BUN/Creatinine Ratio Glucose POC Glucose 123 H 83 POC Glucose (other) Calcium POC Ioniz Calcium Camila Magnesium Total Bilirubin AST ALT Alkaline Phosphatase Total Protein Albumin Globulin Albumin/Globulin Ratio Lipase 09/22/18 08:30 WBC RBC Hgb POC Hgb Hct POC Hct MCV MCH MCHC RDW Std Deviation RDW Coeff of Radha Plt Count MPV Immature Gran % (Auto) Neut % (Auto) Lymph % (Auto) Dolores % (Auto) Eos % (Auto) Baso % (Auto) Immature Gran # (Auto) Neut # (Auto) Lymph # (Auto) Dolores # (Auto) Eos # (Auto) Baso # (Auto) POC Sodium Sodium 140 POC Potassium Potassium 3.5 POC Chloride Chloride 107 Carbon Dioxide 27 POC Total CO2 Anion Gap 6.0 POC Anion Gap POC BUN BUN 16 Creatinine 1.28 H POC Creatinine Est Cr Clr Drug Dosing 31.2 Est GFR ( Amer) 44.1 Est GFR (Non-Af Amer) 38.1 BUN/Creatinine Ratio 12.7 Glucose 111 H POC Glucose POC Glucose (other) Calcium 8.4 L POC Ioniz Calcium Camila Magnesium 2.3 Total Bilirubin AST ALT Alkaline Phosphatase Total Protein Albumin Globulin Albumin/Globulin Ratio Lipase _ (1) Closed rib fracture Encounter type: initial encounter Fracture healing: Laterality: right Rib fracture type: multiple ribs Qualified Code(s): S22.41XA - Multiple fractures of ribs, right side, initial encounter for closed fracture
[2018-09-22] MEDS ORDERED: PANTOprazole 40 MG TAB PO SCH (09:30)
[2018-09-22] MEDS: ATORVASTATIN 40 MG TAB PO SCH (20:05)
[2018-09-22] MEDS: OXYCODONE HCL IR 5 MG TAB (IMMEDIATE RELEASE) PO PRN (20:06)
[2018-09-22] MEDS ORDERED: KETOROLAC TROMETHAMINE 10 MG TABLET PO SCH (21:00)
[2018-09-23] MEDS: LEVOTHYROXINE SODIUM 150 MCG TABLET PO SCH (05:50)
[2018-09-23] MEDS: TRAMADOL HCL 50 MG TABLET PO PRN ×2 (05:50)
[2018-09-23] MEDS: CEROVITE ADV FORMULA TAB PO SCH (07:27)
[2018-09-23] MEDS: OXYBUTYNIN CHLORIDE 5 MG TAB PO SCH (07:27)
[2018-09-23] MEDS: PANTOprazole 40 MG TAB PO SCH (07:27)
[2018-09-23] MEDS: CHOLECALCIFEROL 1,000 UNITS TAB PO SCH (07:28)
[2018-09-23] MEDS: LISINOPRIL 10 MG TAB PO SCH (07:28)
[2018-09-23] MEDS: CARVEDILOL 12.5 MG TAB PO SCH (07:28)
[2018-09-23] MEDS: CYANOCOBALAMIN 500 MCG TABLET (VITAMIN B-12) PO SCH (07:28)
[2018-09-23] MEDS: DICLOFENAC SOD 1% GEL 100 GM TUBE EXT PRN (07:29)
[2018-09-23] MEDS: ACETAMINOPHEN 325 MG TAB PO PRN (07:32)
[2018-09-23] MEDS: INSULIN ASPART 100 UNITS/ML 3 ML PEN SC SCH ×4 (08:54→20:40)
[2018-09-23] MEDS ORDERED: ALUMINUM/MAGNESIUM SUSP 30 ML UDC PO STA (09:24)
--- NOTE | 2018-09-23 09:42 | Hospitalist Progress Note ---
Date of Service September 23, 2018 Assessment & Plan (1) Closed rib fracture: 83-year-old female was admitted for observation and 21 September 2018 status post fall and new rib fractures. Right chest wall pain and right rib fractures: Witnessed mechanical fall without loss of consciousness. After CT imaging of the head, cervical spine, thoracic and lumbar spine, chest/ abdomen/pelvis as well as x-rays of the right elbow, right shoulder, left wrist , left knee, left tib-fib, and left ankle --- notable for acute non-displaced fractures of the anterior right fourth and fifth ribs as well as a pulmonary nodule. -Continue pain control with Tylenol and tramadol. Start MS Contin sustained release for baseline pain control left shoulder pain and decreased range of motion, shoulder x-rays on his shows arthritis, no acute disease digestive epigastric pain, start Maalox and continue Protonix Pulmonary nodule: 6 mm seen in inferior segment lingula. Recommend outpatient follow-up. Ongoing medical issues: - Hypertension: At home is on Coreg, lisinopril, hydralazine. Continued. - Hyperlipidemia: At home is on atorvastatin 40. Continued. - Hypothyroidism: At home is on levothyroxine 150 mcg. Continued. - CKD stage III: Initial Cr 1.34, similar to recent values. - Chronic pancreatitis: No current abdominal pain. Admit lipase 169. - Diabetes type 2: HbA1c on was 5.9. At home is on glipizide. Here on insulin sliding scale. - Nonischemic cardiomyopathy: Pacemaker placement in 2007. - Severe osteoarthritis, degenerative disc disease, and spinal stenosis: At home is on vitamin D, Osteo Bi-Flex, oxybutynin, diclofenac, and aspirin caffeine combo. Continued. - Prior cholecystectomy with common bile duct stent placed on 07Aug2018. - Duodenal ulcer: As seen on EGD on 07Aug2018. Will put on protonix here. - Was positive for C diff on 10Aug2018. Completed antibiotics on . No present diarrhea. 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 Right rib fractures with acute non-displaced fractures of the anterior right fourth and fifth ribs as well as a pulmonary nodule. Left knee pain Witnessed mechanical fall without loss of consciousness. CT imaging of the head, cervical spine, thoracic and lumbar spine, chest/abdomen /pelvis as well as x-rays of the right elbow, right shoulder, left wrist, left knee, left tib-fib, and left ankle Continue pain control with Tylenol and tramadol. Start oxycodone as needed as needed for the pain for better pain control, avoid NSAID because history of duodenal ulceration, start PPI, Ordered incentive spirometry, encourage pain control and out of bed to the chair , continue PT/OT. Left shoulder pain and decreased range of motion, xray showed: Advanced degenerative changes of the glenohumeral joint, no acute fracture, Pulmonary nodule: 6 mm seen in inferior segment lingula. Recommend outpatient follow-up. Hypertension: At home is on Coreg, lisinopril, hydralazine. Continued. Hyperlipidemia: At home is on atorvastatin 40. Continued. Hypothyroidism: At home is on levothyroxine 150 mcg. Continued. CKD stage III: Initial Cr 1.34, similar to recent values. Chronic pancreatitis: No current abdominal pain. Admit lipase 169. Diabetes type 2: HbA1c on was 5.9. At home is on glipizide. Here on insulin sliding scale. Nonischemic cardiomyopathy: Pacemaker placement in 2007. Severe osteoarthritis, degenerative disc disease, and spinal stenosis: Continue vitamin D, Osteo Bi-Flex, oxybutynin, diclofenac, and aspirincaffeine combo. Duodenal ulcer: As seen on EGD on 07Aug2018. Was positive for C diff on 10Aug2018. Completed antibiotics on . No present diarrhea. Possible mild CKD, stage II-III with creatinine 1.34, will continue follow-up, Full code, PT OT, corrections caseworker for discharge plan, Subjective Continue reports significant pain in the right chest wall, associated with left knee pain, Afraid to move because of pain will getting worse, Report in digestive epigastric pain, start Maalox and continue Protonix, Review of Systems Constitutional: negative weakness, mild fatigue Respiratory: no cough, sputum, wheezing, or dyspnea on exertion Cardiac: No chest pain, No orthopnea, Abdomen: No pain, No nausea, No vomiting, Musculoskeletal: Chest wall pain, left knee pain that mentioned in the above, no other joint pain, : No dysuria, No urinary frequency, No incontinence, No hematuria Neurologic: No paralysis, No weakness, No numbness/tingling, No vertigo, No balance problems Psychiatric: No depression symptoms, No anhedonism, Heme: No abnormal bleeding/bruising, No clotting problems, No swollen lymph nodes, No night sweats Skin: No rash, No itch, Physical Exam 2 Vital Signs (Past 24 Hours): Last Vital Signs Temp 37.0 C 09/23/18 07:08 Pulse 70 09/23/18 07:08 Resp 20 09/23/18 07:08 BP 123/75 09/23/18 07:08 Pulse Ox 92 09/23/18 07:08 Physical Exam: General Appearance: WD/WN, no apparent distress, however in pain, Eyes: normal inspection, PERRL, EOMI, sclerae normal ENT: normal ENT inspection, hearing grossly normal, pharynx normal Neck: supple, no adenopathy, thyroid normal, no JVD, no carotid bruits, trachea midline Respiratory/Chest: right Chest wall obvious tender in palpation, mild decreased breath sounds, no respiratory distress, no accessory muscle use, breath sounds, rales, wheezing Cardiovascular: regular rate, rhythm, no JVD, no murmur Abdomen: normal bowel sounds, non tender, soft, no organomegaly, Extremities: Left knee no "tender is in the above, normal range of motion, roxana inspection, l Left anterior below knee mild swelling minimal red and mild tender in palpation , no pedal edema, no calf tenderness, normal capillary refill , pelvis stable, Neurologic/Psychiatric: transformation specialist II-XII nml as tested, no motor/sensory deficits, alert, normal mood/affect, oriented x 3 Skin: warm/dry, no rash Lymphatic: no adenopathy Results & Data Laboratory Results Laboratory Results - last 24 hr 09/22/18 09/23/18 09/23/18 20:35 07:40 11:37 POC Glucose 118 H 100 H 108 H 09/23/18 16:52 POC Glucose 117 H _ (1) Closed rib fracture Encounter type: initial encounter Fracture healing: Laterality: right Rib fracture type: multiple ribs Qualified Code(s): S22.41XA - Multiple fractures of ribs, right side, initial encounter for closed fracture
[2018-09-23] MEDS: MoRPHine SULFATE CR 15 MG TABCR PO SCH ×2 (10:07→21:12)
[2018-09-23] MEDS: DOCUSATE SODIUM 100 MG CAP PO SCH ×2 (10:07→21:12)
[2018-09-23] MEDS: OXYCODONE HCL IR 5 MG TAB (IMMEDIATE RELEASE) PO PRN (17:04)
[2018-09-23] MEDS: ATORVASTATIN 40 MG TAB PO SCH (21:13)
[2018-09-23] MEDS: ENOXAPARIN INJ 30 MG/0.3 ML SYR SQ SCH (21:13)
[2018-09-24] MEDS: OXYCODONE HCL IR 5 MG TAB (IMMEDIATE RELEASE) PO PRN (03:11)
[2018-09-24] MEDS: LEVOTHYROXINE SODIUM 150 MCG TABLET PO SCH (05:35)
[2018-09-24] MEDS: CYANOCOBALAMIN 500 MCG TABLET (VITAMIN B-12) PO SCH (08:19)
[2018-09-24] MEDS: CEROVITE ADV FORMULA TAB PO SCH (08:19)
[2018-09-24] MEDS: OXYBUTYNIN CHLORIDE 5 MG TAB PO SCH (08:19)
[2018-09-24] MEDS: LISINOPRIL 10 MG TAB PO SCH (08:19)
[2018-09-24] MEDS: CARVEDILOL 12.5 MG TAB PO SCH (08:19)
[2018-09-24] MEDS: CHOLECALCIFEROL 1,000 UNITS TAB PO SCH (08:19)
[2018-09-24] MEDS: PANTOprazole 40 MG TAB PO SCH (08:19)
[2018-09-24] MEDS: DOCUSATE SODIUM 100 MG CAP PO SCH (08:19)
[2018-09-24] MEDS: MoRPHine SULFATE CR 15 MG TABCR PO SCH (08:53)
[2018-09-24] MEDS: INSULIN ASPART 100 UNITS/ML 3 ML PEN SC SCH ×2 (08:53→13:37)
[2018-09-24] MEDS ORDERED: POLYETHYLENE (MIRALAX) 17 GM PACK PO PRN (09:23)
--- NOTE | 2018-09-24 09:57 | Hospitalist Progress Note ---
Date of Service September 24, 2018 Assessment & Plan (1) Closed rib fracture: 83-year-old female was admitted for observation and 21 September 2018 status post fall and new rib fractures. Right chest wall pain and right rib fractures: Witnessed mechanical fall without loss of consciousness. After CT imaging of the head, cervical spine, thoracic and lumbar spine, chest/ abdomen/pelvis as well as x-rays of the right elbow, right shoulder, left wrist , left knee, left tib-fib, and left ankle --- notable for acute non-displaced fractures of the anterior right fourth and fifth ribs as well as a pulmonary nodule. -Continue pain control with Tylenol and tramadol. Start MS Contin sustained release for baseline pain control left shoulder pain and decreased range of motion, shoulder x-rays on his shows arthritis, no acute disease digestive epigastric pain, start Maalox and continue Protonix Pulmonary nodule: 6 mm seen in inferior segment lingula. Recommend outpatient follow-up. Ongoing medical issues: - Hypertension: At home is on Coreg, lisinopril, hydralazine. Continued. - Hyperlipidemia: At home is on atorvastatin 40. Continued. - Hypothyroidism: At home is on levothyroxine 150 mcg. Continued. - CKD stage III: Initial Cr 1.34, similar to recent values. - Chronic pancreatitis: No current abdominal pain. Admit lipase 169. - Diabetes type 2: HbA1c on was 5.9. At home is on glipizide. Here on insulin sliding scale. - Nonischemic cardiomyopathy: Pacemaker placement in 2007. - Severe osteoarthritis, degenerative disc disease, and spinal stenosis: At home is on vitamin D, Osteo Bi-Flex, oxybutynin, diclofenac, and aspirin caffeine combo. Continued. - Prior cholecystectomy with common bile duct stent placed on 07Aug2018. - Duodenal ulcer: As seen on EGD on 07Aug2018. Will put on protonix here. - Was positive for C diff on 10Aug2018. Completed antibiotics on . No present diarrhea. Code status: Full code discuss about [facility] and then going home, she is think about it (2) Pulmonary nodule seen on imaging study: (3) Hypertension: (4) HLD (hyperlipidemia): (5) Hypothyroid: (6) CKD (chronic kidney disease) stage 3, GFR 30-59 ml/min: (7) Chronic pancreatitis: (8) Diabetes: (9) Nonischemic cardiomyopathy: (10) Osteoarthritis: (11) Degenerative joint disease (DJD) of hip: (12) Degenerative lumbar spinal stenosis: (13) History of cholecystectomy: (14) Duodenal ulcer: 83-year-old female was admitted for observation and 21 September 2018 status post fall and new rib fractures. Right rib fractures with acute non-displaced fractures of the anterior right fourth and fifth ribs as well as a pulmonary nodule. Left knee pain Witnessed mechanical fall without loss of consciousness. CT imaging of the head, cervical spine, thoracic and lumbar spine, chest/abdomen /pelvis as well as x-rays of the right elbow, right shoulder, left wrist, left knee, left tib-fib, and left ankle Continue pain control with Tylenol and tramadol. Start oxycodone as needed as needed for the pain for better pain control, avoid NSAID because history of duodenal ulceration, start PPI, Ordered incentive spirometry, encourage pain control and out of bed to the chair , continue PT/OT. Left shoulder pain and decreased range of motion, xray showed: Advanced degenerative changes of the glenohumeral joint, no acute fracture, Pulmonary nodule: 6 mm seen in inferior segment lingula. Recommend outpatient follow-up. Hypertension: At home is on Coreg, lisinopril, hydralazine. Continued. Hyperlipidemia: At home is on atorvastatin 40. Continued. Hypothyroidism: At home is on levothyroxine 150 mcg. Continued. CKD stage III: Initial Cr 1.34, similar to recent values. Chronic pancreatitis: No current abdominal pain. Admit lipase 169. Diabetes type 2: HbA1c on was 5.9. At home is on glipizide. Here on insulin sliding scale. Nonischemic cardiomyopathy: Pacemaker placement in 2007. Severe osteoarthritis, degenerative disc disease, and spinal stenosis: Continue vitamin D, Osteo Bi-Flex, oxybutynin, diclofenac, and aspirincaffeine combo. Duodenal ulcer: As seen on EGD on 07Aug2018. Was positive for C diff on 10Aug2018. Completed antibiotics on . No present diarrhea. Possible mild CKD, stage II-III with creatinine 1.34, will continue follow-up, Full code, PT OT, case management social worker for discharge plan, Subjective pain in the right chest wall has been significantly improved after new medicine of MS Contin scheduled, However this morning was having some significant breakthrough pain, pain getting worse when moving , left knee pain is better too Normal digestive epigastric pain after starting Maalox and continue Protonix, No bowel movement for 2 days, Colace was started yesterday, will give MiraLAX daily as needed for states now, Pending insurance company authorization to [facility] Constitutional: negative weakness, mild fatigue Respiratory: no cough, sputum, wheezing, or dyspnea on exertion Cardiac: No chest pain, No orthopnea, Abdomen: No pain, No nausea, No vomiting, Musculoskeletal: Chest wall pain, left knee pain that mentioned in the above, no other joint pain, : No dysuria, No urinary frequency, No incontinence, No hematuria Neurologic: No paralysis, No weakness, No numbness/tingling, No vertigo, No balance problems Psychiatric: No depression symptoms, No anhedonism, Heme: No abnormal bleeding/bruising, No clotting problems, No swollen lymph nodes, No night sweats Skin: No rash, No itch, Physical Exam 2 Vital Signs (Past 24 Hours): Last Vital Signs Temp 36.6 C 09/24/18 07:47 Pulse 69 09/24/18 07:47 Resp 18 09/24/18 07:47 BP 144/76 H 09/24/18 07:47 Pulse Ox 91 09/24/18 07:47 _ (1) Closed rib fracture Encounter type: initial encounter Fracture healing: Laterality: right Rib fracture type: multiple ribs Qualified Code(s): S22.41XA - Multiple fractures of ribs, right side, initial encounter for closed fracture
[2018-09-24] MEDS ORDERED: CHECK FENTANYL PATCH PLACEMENT SCH (16:00)
[2018-09-24] MEDS ORDERED: fentaNYL 12 MCG/HR TDSY TD SCH (16:00)
--- NOTE | 2018-09-24 16:50 | Discharge Summary ---
Date of Service September 24, 2018 Admission HPI Per Admitting Provider 83-year-old female says that she was visiting her here in the hospital this afternoon. She says she was about to go home and was moving towards sitting in a wheelchair. However, she says she tripped over the legs of her wheelchair, landing onto her abdomen and chin. She remembers all of the events and denies any loss of consciousness. She was transferred down the emergency room for further evaluation. At present, she says her pain is primarily in her right anterior ribs as well as left anterior shoulder. She also has diffuse milder pain in her bilateral legs and arms. She denies any other acute concerns. Of note, patient says that her is due to be discharged from the hospital on September 23 but will go to rehab. Normally she lives in her home with him but is concerned about assistance given her pain. Her daughter is visiting in the ED during our interview but says that her (daughters) was also just discharged from the hospital so she will be able to care for her mother as much as she normally would. Principal Diagnosis Right undisplaced rib fracture Discharge Data Allergies Allergy/AdvReac Type Severity Reaction Status Date / Time celecoxib Allergy Severe SX OF Verified 09/21/18 17:59 STROKE, FACIAL NUMBNESS, UNABLE TO SPEAK morphine AdvReac Intermediate Confusion Verified 09/24/18 16:22 metronidazole AdvReac Mild N/V Verified 09/21/18 17:59 Cipro AdvReac Unknown UPSET Verified 02/17/17 12:03 STOMACH ciprofloxacin AdvReac Unknown UPSET Verified 09/21/18 17:59 STOMACH Consultations 09/21/18 18:47 ED Decision to Admit Stat 09/21/18 21:22 Consult Case Management - Discharge Planning Routine Ordered Studies 09/21/18 16:28 CT abd pelvis IV con only Stat CT cervical spine wo con Stat CT chest w con Stat CT head/brain wo con Stat CT lumbar spine wo con Stat CT thoracic spine wo con Stat Hospital Course (1) Closed rib fracture: (2) Pulmonary nodule seen on imaging study: (3) Hypertension: (4) HLD (hyperlipidemia): (5) Hypothyroid: (6) CKD (chronic kidney disease) stage 3, GFR 30-59 ml/min: (7) Chronic pancreatitis: (8) Diabetes: (9) Nonischemic cardiomyopathy: (10) Osteoarthritis: (11) Degenerative joint disease (DJD) of hip: (12) Degenerative lumbar spinal stenosis: (13) History of cholecystectomy: (14) Duodenal ulcer: 83-year-old female was admitted for observation and 21 September 2018 status post fall and new rib fractures. Right rib fractures with acute non-displaced fractures of the anterior right fourth and fifth ribs as well as a pulmonary nodule. Left knee pain better, Witnessed mechanical fall without loss of consciousness. CT imaging of the head, cervical spine, thoracic and lumbar spine, chest/abdomen /pelvis as well as x-rays of the right elbow, right shoulder, left wrist, left knee, left tib-fib, and left ankle was trying to use Tylenol and tramadol for pain control initially, however patient pain not well controlled, Start MS Contin sustained released for basal pain control yesterday, with oxycodone as needed for breakthrough pain Patient was reported some lethargic, possible morphine causing the problem, therefore for the basal pain control I changed to fentanyl patch Has started Colace scheduled and MiraLAX as needed for constipation while on opiate medication avoid NSAID because history of duodenal ulceration, start PPI, Ordered incentive spirometry, encourage pain control and out of bed to the chair , continue PT/OT. Left shoulder pain and decreased range of motion, xray showed: Advanced degenerative changes of the glenohumeral joint, no acute fracture, Pulmonary nodule: 6 mm seen in inferior segment lingula. Recommend outpatient follow-up. Hypertension: At home is on Coreg, lisinopril, hydralazine. Continued. Hyperlipidemia: At home is on atorvastatin 40. Continued. Hypothyroidism: At home is on levothyroxine 150 mcg. Continued. CKD stage III: Initial Cr 1.34, similar to recent values. Chronic pancreatitis: No current abdominal pain. Admit lipase 169. Diabetes type 2: HbA1c on 16Jul was 5.9. At home is on glipizide. Here on insulin sliding scale. Nonischemic cardiomyopathy: Pacemaker placement in 2007. Severe osteoarthritis, degenerative disc disease, and spinal stenosis: Continue vitamin D, Osteo Bi-Flex, oxybutynin, diclofenac, and aspirincaffeine combo. Duodenal ulcer: As seen on EGD on 07Aug2018. Was positive for C diff on 10Aug2018. Completed antibiotics on . No present diarrhea. Possible mild CKD, stage II-III with creatinine 1.34, will continue follow-up, Subjective upon discharge: pain in the right chest wall has been significantly improved after new medicine of MS Contin scheduled, However this morning was having some significant breakthrough pain, pain getting worse when moving , left knee pain is better too MS Contin because confused, which patient has experiencing now, has change MS Contin to fentanyl patch for basal pain control no more digestive epigastric pain after starting Maalox and continue Protonix yesterday No bowel movement for 2 days, Colace was started yesterday, will give MiraLAX daily as needed for states now, Discharge to [facility] Constitutional: negative weakness, mild fatigue Respiratory: no cough, sputum, wheezing, or dyspnea on exertion Cardiac: No chest pain, No orthopnea, Abdomen: No pain, No nausea, No vomiting, Musculoskeletal: Chest wall pain, left knee pain that mentioned in the above, no other joint pain, : No dysuria, No urinary frequency, No incontinence, No hematuria Neurologic: No paralysis, No weakness, No numbness/tingling, No vertigo, No balance problems Psychiatric: No depression symptoms, No anhedonism, Heme: No abnormal bleeding/bruising, No clotting problems, No swollen lymph nodes, No night sweats Skin: No rash, No itch, Physical exam upon discharge: General Appearance: WD/WN, no apparent distress, no pain Eyes: normal inspection, PERRL, EOMI, sclerae normal ENT: normal ENT inspection, hearing grossly normal, pharynx normal Neck: supple, no adenopathy, thyroid normal, no JVD, no carotid bruits, trachea midline Respiratory/Chest: right Chest wall obvious tender in palpation, mild decreased breath sounds, no respiratory distress, no accessory muscle use, breath sounds, rales, wheezing Cardiovascular: regular rate, rhythm, no JVD, no murmur Abdomen: normal bowel sounds, non tender, soft, no organomegaly, Extremities: Left knee no "tender is in the above, normal range of motion, roxana inspection, l Left anterior below knee mild swelling minimal red and mild tender in palpation , no pedal edema, no calf tenderness, normal capillary refill , pelvis stable, Neurologic/Psychiatric: package reinspector II-XII nml as tested, no motor/sensory deficits, alert, normal mood/affect, oriented x 3 Skin: warm/dry, no rash Lymphatic: no adenopathy Labs upon discharge: Laboratory Results - last 24 hr 09/23/18 09/23/18 09/24/18 16:52 20:26 07:29 POC Glucose 117 H 106 H 93 09/24/18 09/24/18 11:42 16:44 POC Glucose 130 H 107 H Total Time Total Time Spent Total Time Spent (In Minutes): 30 min Total Time Includes: Examination of the Patient, Discharge Planning, Medication Reconciliation and Communication With Other Providers Discharge Plan Discharge Items Patient Disposition: [facility] Reason For Visit: RIGHT RIB FRACTURES Discharge Diagnosis: chest wall pain with Right rib fractures Left knee pain Discharge Goals: Decrease discomfort, Diagnostic testing, Improve disease control, Improve function and Increase independence Activity: Per 'Additional Instructions' section Non-emergency contact: Primary Care Provider Call non-emergency contact if: you have any medication questions, your symptoms worsen, your pain is not controlled and your temperature is above 100.5 Diet: Heart Healthy Addtl Provider Instructions: you have Right rib fractures you have Left knee pain you need to continue incentive spirometry, out of bed to the chair, continue PT /OT. you have Left shoulder pain and decreased range of motion, xray showed: Advanced degenerative changes of the glenohumeral joint, no acute fracture, need to PT too you have Pulmonary nodule: 6 mm seen in inferior segment lingula. Recommend outpatient follow-up with pcp you need to follow up with your primary care physician in 1 week, - take medication as instructed, never overdose or any misuse, or take with alcohol, because misuse of medicine may cause organ damage or , call me , or your primary care physician if have questions of discharge medicaitons. - call your primary care physician, or go to local emergency room if has any fever/chill, chest pain, shortness of breathing, nausea/vomiting/abdominal pain , facial droop/slurry speech/local weakness, or if has any questions. - fall precaution - diet as instructed Prescriptions: New acetaminophen [Mapap (acetaminophen)] 325 mg Tablet 650 mg PO Q5H PRN (Reason: pain, or fever>100.4) 1 Days Qty: 20 RF: 0 fentanyl 12 mcg/hr Patch 72 Hour 12 mcg Transdermal Q3D 7 Days Qty: 2 RF: 0 oxycodone 5 mg Tablet 5 mg PO Q6 PRN (Reason: pain) 3 Days Qty: 7 RF: 0 polyethylene glycol 3350 [Miralax] 17 gram Powder In Packet 17 g PO DAILY PRN (Reason: constipation) 7 Days Qty: 7 RF: 0 docusate sodium 100 mg Capsule 100 mg PO BID 7 Days Qty: 14 RF: 0 Continue atorvastatin 40 mg Tablet 40 mg PO HS RF: 0 carvedilol 12.5 mg Tablet 12.5 mg PO QAM RF: 0 cyanocobalamin (vitamin B-12) [Vitamin B-12] 1,000 mcg Tablet 1,000 mcg PO QAM RF: 0 hydralazine 25 mg Tablet 25 mg PO QAM RF: 0 lisinopril 10 mg Tablet 10 mg PO QAM RF: 0 levothyroxine 150 mcg Tablet 150 mcg PO QAM RF: 0 oxybutynin chloride 5 mg Tablet 5 mg PO QAM RF: 0 glipizide 5 mg Tablet 5 mg PO QAM RF: 0 glucosamine-chondroitin [Osteo Bi-Flex] 250-200 mg Tablet 1 tab PO QAM RF: 0 rgtjkyzr-bjl-XR-lycopen-lutein [Centrum Silver] 0.4-300-250 mg-mcg-mcg Tablet 1 tab PO QAM RF: 0 cholecalciferol (vitamin D3) [Vitamin D3] 2,000 unit Tablet 2,000 unit PO QAM RF: 0 diclofenac sodium 1 % gel 4 gm TOP QID PRN (Reason: pain) Qty: 100 RF: 0 aspirin-caffeine [Back and Body Pain Reliever] 500-32.5 mg Tablet 1 tab PO UD RF: 0 Stand-Alone Forms: [facility] Discharge Orders: Discharge Order (Routine); Ordered 09/24/18 Ordered By: Beny Dempsey Skilled Items Patient informed of condition?: Yes DNR: No Discharge Level of Care: Skilled Communicable Disease: No Discharge Prognosis: Improving Admission Data Admit Date/Time: 09/21/18 19:57 Attending Provider: Beny Dempsey Admit Provider: Froylan Harley Primary Care Provider: Rome Castellanos Other Providers: Xena Chamberlain Roy Service: Medical
== END 2018-09-24 17:51 ==
LOC: 4E 15:46 → ED 15:46 → SUATTDRO 19:57 → 4E 20:42

== ENCOUNTER 2019-05-15 08:07 | Inpatient (IN) ==
[2019-05-15] MEDS ORDERED: ACETAMINOPHEN 1,000 MG/100 ML VIAL IV STA (08:37)
[2019-05-15] MEDS ORDERED: ACETAMINOPHEN 500 MG TAB PO STA (08:38)
[2019-05-15] MEDS ORDERED: ALBUTEROL 0.083% NEBU SOLN 3 ML VIAL NEB STA (08:38)
[2019-05-15] MEDS ORDERED: SODIUM CHLORIDE 0.9% 1000ML 500 ML IV ONE (08:39)
[2019-05-15 09:05] LABS: Appearance Urine Clear (Clear); Bacteria Urine Automated Negative (Negative); Bilirubin Urine Negative (Negative); Blood Urine Negative (Negative); Cast Urine Automated 0 /lpf (0-5); Color Urine Yellow; Epithelial Cell Urine Auto 0-5 /lpf (0-5); Glucose Urine UA Negative (Negative); Ketones Urine Negative (Negative); Leukocyte Esterase Urine Negative (Negative); Nitrite Urine Negative (Negative); Protein Urine 1+ (Negative); RBC Urine Automated 0-4 /hpf (0-4); Specific Gravity Urine 1.011 (1.000-1.030); Urobilinogen Urine Negative (Negative); WBC Urine Automated 0 /hpf (0-5)
--- NOTE | 2019-05-15 09:12 | Emergency Department Note ---
ED Visit Note I assisted attending Dr. Carvajal in the care of this patient. Please see attending's note for details of the visit. Stephanie Victor MD Caul Dresser PGY-3 . Resident Activity Tracking Resident Involvement: Resident Care Provided Care Provided: Adult ED
[2019-05-15 09:21] LABS: Basophils # (auto) 0.01 K/uL (0-0.2); Basophils % (auto) 0.1 %; Eosinophils % (auto) 1.8 %; Hematocrit (blood only) 41.5 % (37-47); Hemoglobin 13.9 g/dL (12.0-16.0); Immature Granulocytes # (auto) 0.02 K/uL (0.00-0.02); Immature Granulocytes % (auto) 0.2 %; Lymphocytes # (auto) 1.07 K/uL (1.2-3.4); Lymphocytes % (auto) 9.4 %; Mean Corpuscular Hemoglobin 31.7 pg (25-34); Mean Corpuscular Hgb Conc 33.5 g/dL (32-36); Mean Corpuscular Volume 94.5 fL (80-100); Mean Platelet Volume 10.2 fL (7.4-10.4); Monocytes # (auto) 1.32 K/uL (0.11-0.59); Monocytes % (auto) 11.7 %; Neutrophils # (auto) 8.71 K/uL (1.4-6.5); Neutrophils % (auto) 76.8 %; Platelet Count 183 K/uL (130-400); RDW Standard Deviation 48.4 fL (36.4-46.3); Red Blood Count 4.39 M/uL (4.2-5.4); White Blood Count 11.33 K/uL (4.8-10.8)
[2019-05-15 09:38] LABS: Albumin Level 3.4 gm/dl (3.4-5.0); BUN Creatinine Ratio 13.8 (10-20); Calcium 9.1 mg/dl (8.5-10.1); Creatinine Clr Calc Pharmacy 29.9 ml/min; Est GFR (African American) 41.8; Est GFR (Non-African American) 36.1; Potassium 3.7 mmol/L (3.5-5.1)
--- NOTE | 2019-05-15 09:43 | CT Scan Report ---
CT OF THE HEAD WITHOUT CONTRAST CLINICAL HISTORY: Fall. COMPARISON STUDY: Head CT September 21, 2018. CT DOSE: 537.48 mGy.cm TECHNIQUE: Helical axial images of the head were obtained without IV contrast. Automated exposure con trol was utilized for the study. A dose lowering technique was utilized adhering to the principles o f ALARA. FINDINGS: No acute intracranial hemorrhage, midline shift or mass effect is present. Ventricular syst em is stable. Atrophy is again noted. White matter hypodensity suggests small vessel disease. There i s bilateral basal ganglia and cerebellar hemispheric calcification. This is chronic. There are no fin dings to suggest acute dural sinus thrombosis or acute territorial infarct. There is no calvarial fra cture. IMPRESSION: 1. No acute intracranial findings. No change in appearance of the brain. 2. No calvarial fracture. Electronically signed by: Kendall Kirby M.D. 05/15/2019 9:41 AM
[2019-05-15 09:46] LABS: Albumin Globulin Ratio 0.9 (0.9-2); Bilirubin,Total 0.9 mg/dl (0.2-1); Globulin 3.9 gm/dl (2.5-4.0); Total Protein 7.3 gm/dl (6.4-8.2); Troponin I 0.144 ng/ml (0-0.045)
[2019-05-15] MEDS ORDERED: PIPERACILL/TAZOBAC CONSULT ACTIVE PRN (09:46)
[2019-05-15] MEDS ORDERED: PIPERACILLIN/TAZOBACTAM 3.375 GM/115 ML BAG IV STA (09:46)
[2019-05-15] MEDS ORDERED: LEVOFLOXACIN/D5W 750 MG/150 ML BAG IV SCH (10:00)
--- NOTE | 2019-05-15 10:08 | XRay Report ---
XR knee RT 2V routine CLINICAL HISTORY: fall COMPARISON: Right knee radiographs October 11, 2011. FINDINGS: Calcifications along the medial femoral condyle are chronic. No acute fracture or joint ef fusion is noted. There is mild right knee osteoarthritis. IMPRESSION: No acute fracture or joint effusion of the right knee. Electronically signed by: Kendall Kirby M.D. 05/15/2019 10:05 AM
--- NOTE | 2019-05-15 10:10 | XRay Report ---
XR pelvis 1-2V routine CLINICAL HISTORY: Fall. Right hip pain. Evaluate for fracture. COMPARISON: Pelvis radiograph October 26, 2015. FINDINGS: Left hip arthroplasty is noted. Visualized portions of the hardware are intact. Distal asp ect of the femoral component was not imaged on this exam. The sacroiliac joints and symphysis pubis a re intact. No acute fracture within the pelvis or hips is identified. IMPRESSION: 1. No acute fracture within the pelvis or hips. 2. Status post total left hip arthroplasty. Electronically signed by: Kendall Kirby M.D. 05/15/2019 10:09 AM
--- NOTE | 2019-05-15 10:11 | XRay Report ---
XR femur RT 2V routine CLINICAL HISTORY: fall COMPARISON: Right femur radiographs October 11, 2011. FINDINGS: No acute fracture within the right femur is noted. Calcifications along the medial femoral condyle are chronic. Mild right hip osteoarthritis is noted. IMPRESSION: No acute fracture within the right femur. Electronically signed by: Kendall Kirby M.D. 05/15/2019 10:10 AM
--- NOTE | 2019-05-15 10:16 | XRay Report ---
XR chest 1V portable CLINICAL HISTORY: Hypoxia. Tachycardia. Fall. COMPARISON STUDY: Chest CT September 21, 2018. FINDINGS: Left subclavian pacer/AICD is in place. Patient is rotated. Mediastinal contours are stable . There is slight blunting of left costophrenic angle which is unchanged. There is no evidence for pn eumonia or pulmonary edema. Degenerative changes of both glenohumeral joints are incidentally noted. IMPRESSION: No acute cardiopulmonary findings. No change in appearance of the chest. Electronically signed by: Kendall Kirby M.D. 05/15/2019 10:14 AM
[2019-05-15] MEDS ORDERED: GLUCOSE 10 TABS/TUBE PO PRN (12:16)
[2019-05-15] MEDS ORDERED: GLUCOSE 40% GEL 15 GM TUBE PO PRN (12:16)
[2019-05-15] MEDS ORDERED: DEXTROSE 50% 50 ML SYRINGE IV PRN (12:16)
[2019-05-15] MEDS ORDERED: CARBOHYDRATES FOR HYPOGLYCEMIA PO PRN (12:16)
[2019-05-15] MEDS ORDERED: GLUCAGON FOR INJ 1 MG VIAL SQ PRN (12:16)
[2019-05-15] MEDS: DICLOFENAC SOD 1% GEL 100 GM TUBE EXT PRN (12:48)
[2019-05-15] MEDS: INSULIN ASPART 100 UNITS/ML 3 ML PEN SC SCH ×3 (12:49→20:49)
[2019-05-15] MEDS: cefTRIAXone SODIUM 1,000 MG in DEXTROSE 5% 50 ML IV SCH (13:04)
--- NOTE | 2019-05-15 13:33 | History & Physical Report ---
Date of Service May 15, 2019 Assessment & Plan (1) Urinary tract infection: This is a tough call. Her UA is clear on admission (05/15); however, she has been on Macrobid for about 2 days which may be clearing. I am not sure what is contributing to her fever and subjective chills other than possible mild kidney involvement as Macrobid would not treat anything other than a simple cystitis. No other focal infectious signs/symptoms to pursue. - Ceftriaxone for presumed complicated UTI - Follow blood cultures - Monitor for fever (2) Elevated troponin: No symptoms of chest discomfort or palpitations. EKG non-ischemic. - Initial troponin was 0.144. - Continue ASA, beta-niraj, statin, ACEi - Trend troponins and EKGs (3) Diabetes: A1c was 6.3% in 03/2019. - Sliding scale insulin - Hold home oral meds (4) Hypertension: BP in good range inpatient. - Continue home meds (5) CKD (chronic kidney disease) stage 3, GFR 30-59 ml/min: Baseline Cr is ~1.3, eGFR 35. At baseline on admission. - Avoid nephrotoxins and renally dose meds. (6) Heart disease: Follows with Drs. Otto and Munir for cardiomyopathy. Per outpatient notes, echo from 2012 showed the EF had normalized. - Continue ASA, beta-niraj, statin, ACEi - If any further cardiac concerns, will consult cardiology (7) Hypothyroid: No signs/symptoms of hypo-/hyperthyroidism. - Continue home Synthroid 175 mcg (8) DVT prophylaxis: SCDs - Low DVT risk per admission calculator History of Present Illness Primary Care Provider: Adriano Castellanos MD 84yo F w/ hx of DM, HTN who presents with fever and slow fall at home. Per patient, she has been having abdominal pressure and polyuria for at least 2-3 weeks. She reports working with her PCP to treat it with an unknown antibiotic. She then had a recheck of her urine on 05/10 which showed continued infection for which she was started on Macrobid. She has been on that for about 1-2 days. Yesterday, she reports that her symptoms of abdominal pressure and polyuria continued. Overnight she reports subjective chills, asking her to put a third and fourth blanket on her which is unusual for her. Early in the morning she got up to use the restroom, became dizzy, and had to have her lowered her to the ground. She reports she may have struck her head as she went down to the ground; however, she denies any loss of consciousness whatsoever. She is brought to the emergency department for evaluation. In the emergency department she was noted to be tachycardic had a fever to 38.1. She denies any other focal infectious symptoms including cough, shortness of breath, sputum production, rash or redness anywhere on her skin, constipation or diarrhea, or cough or cold symptoms. She has not had any sick contacts that she is aware of. Allergies Allergy/AdvReac Type Severity Reaction Status Date / Time celecoxib Allergy Severe SX OF Verified 05/15/19 08:56 STROKE, FACIAL NUMBNESS, UNABLE TO SPEAK fesoterodine [From Toviaz] Allergy Unknown Unknown Verified 05/15/19 12:27 solifenacin [From Vesicare] Allergy Unknown Unknown Verified 05/15/19 12:27 morphine AdvReac Intermediate Confusion Verified 05/15/19 08:56 ciprofloxacin AdvReac Mild UPSET Verified 05/15/19 12:27 STOMACH metronidazole AdvReac Mild N/V Verified 05/15/19 08:56 Cipro AdvReac Unknown UPSET Verified 02/17/17 12:03 STOMACH Home Medications Home Medications Medication Instructions Recorded Confirmed Type Centrum Silver 1 tab PO QAM 08/05/18 05/15/19 History atorvastatin 40 mg PO HS 08/05/18 05/15/19 History carvedilol 12.5 mg PO BID 08/05/18 05/15/19 History cholecalciferol (vitamin D3) 2,000 unit PO QAM 08/05/18 05/15/19 History [Vitamin D3] cyanocobalamin (vitamin B-12) 1,000 mcg PO QAM 08/05/18 05/15/19 History [Vitamin B-12] glucosamine-chondroitin [Osteo 1 tab PO QAM 08/05/18 05/15/19 History Bi-Flex] lisinopril 10 mg PO QAM 08/05/18 05/15/19 History oxybutynin chloride 5 mg PO QAM 08/05/18 05/15/19 History Humalog U-100 Insulin 1 sliding scale dose SUBCUT UD 09/29/18 05/15/19 History pantoprazole [Protonix] 40 mg PO QAM 09/29/18 05/15/19 History ascorbic acid (vitamin C) 500 mg 500 mg PO QAM tab 02/26/19 05/15/19 History tablet cyclobenzaprine 10 mg tablet 10 mg PO TID PRN #30 tab 04/12/19 05/15/19 History gabapentin 300 mg capsule 600 mg PO HS #60 cap 04/12/19 05/15/19 History nitrofurantoin 100 mg PO BID #14 cap 05/12/19 05/15/19 Rx monohydrate/macrocrystals 100 mg capsule glipizide 5 mg PO QAM 05/15/19 05/15/19 History levothyroxine 175 mcg PO QAM 05/15/19 05/15/19 History Past Med/Surg History Medical History Vitamin D deficiency, unspecified (Acute) Urge incontinence of urine (Acute) Pulmonary nodule (Acute) Presence of cardiac pacemaker (Acute) Orthostatic hypotension (Acute) Nocturia (Acute) Lumbar spondylosis (Acute) Lumbar canal stenosis (Acute) Insomnia (Acute) IBS (irritable bowel syndrome) (Acute) Hypercholesterolemia (Acute) Gait disturbance (Acute) GERD without esophagitis (Acute) Edema (Acute) Diverticulosis of colon (Acute) Diabetic peripheral neuropathy (Acute) Diabetic nephropathy (Acute) Costochondritis (Acute) Carotid artery stenosis (Acute) Cardiomyopathy (Acute) Cardiac defibrillator in place (Acute) Arthritis (Acute) Anemia (Acute) HLD (hyperlipidemia) (Chronic) Hypothyroid (Chronic) GERD (gastroesophageal reflux disease) (Chronic) Hypertension (Chronic) CKD (chronic kidney disease) stage 3, GFR 30-59 ml/min (Chronic) Osteoarthritis (Acute) 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 D/C'D TO [facility]. Scaphoid fracture of wrist Surgical History S/P ICD (internal cardiac defibrillator) procedure Biventricular AICD placed in 2007 S/P partial colectomy S/P hysterectomy S/P appendectomy History of cholecystectomy (Resolved) S/P kyphoplasty (Inactive) History of ERCP w/ sphincterotomy & CBD stent History of cardiac cath PER PT, 5-10 YEARS AGO AT [facility] - REASON? - NO STENTS/ANGIOPLASTY History of colonoscopy History of esophagogastroduodenoscopy (EGD) History of vertebroplasty T12 Family History Son Family history of diabetes mellitus Unknown Breast cancer Sister Breast cancer Social History Preferred Language: Turkmen Communication Ability: Effective Visual Impairment: No Limitations Inbound Sales Manager Required: No Beliefs That Will Affect Care: None marital status: Current Living Situation: Spouse Other Information That Helps Us Care for You: No Feels Safe at Home: Yes Smoking Status: Never smoker Second Hand Exposure: No ; Hx Alcohol Use: No Hx Substance Use: No Review of Systems Review of Systems: All systems reviewed & are unremarkable except as noted in HPI & below Physical Exam Constitutional: WD/WN, vitals as above + frail appearing and + in distress Eyes: EOM intact bilaterally; no conjunctival abnormality ENMT: external ear and nose normal, oropharynx normal Neck: trachea midline, no thyromegaly normal visual inspection Respiratory: normal respiratory effort, lungs clear to auscultation no respiratory distress Cardiovascular: Rate/Rhythm: regular rhythm and + tachycardic Heart Sounds: normal S1 and normal S2 Extremities: no edema Gastrointestinal (Abdomen): Inspection/Auscultation: abdomen normal to inspection; abdomen not distended Musculoskeletal: no cyanosis or clubbing, extremities motor strength 5/5 Skin: no rashes, warm and dry Neurologic: moves all extremities and awake Psychiatric: Orientation: alert, oriented to person and cooperative Results & Data Vital Signs (Past 12 Hours) Vital Signs Temp Pulse Pulse Resp BP BP Pulse Ox 05/15/19 12:16 36.7 C 84 20 107/68 94 05/15/19 11:30 88 23 96/55 L 94 05/15/19 11:08 84 18 94 05/15/19 11:07 84 18 106/54 L 93 05/15/19 11:00 84 20 97/54 L 93 05/15/19 10:30 87 27 H 126/60 91 05/15/19 10:06 91 H 23 96 05/15/19 10:05 89 24 115/72 93 05/15/19 10:02 91 H 23 93 05/15/19 09:20 94 H 22 93 05/15/19 09:19 100 H 18 120/71 94 05/15/19 09:00 95 H 15 95 05/15/19 08:54 100 H 19 93 05/15/19 08:32 101 H 26 H 95 05/15/19 08:31 98 H 19 156/95 H 95 05/15/19 08:30 102 H 29 H 94 05/15/19 08:21 38.1 C H 101 H 22 155/71 H 94 05/15/19 08:17 105 H 24 139/87 90 05/15/19 08:12 105 H 20 155/71 H 91 Code Status & VTE Plan VTE Prophylaxis Plan VTE Prophylaxis will be ordered: Yes PG Care Time/CCT Total # of Minutes Spent Total Time Spent with Patient: Total time spent is greater than 50% in coordination of care (as documented) at patient's floor/unit and/or counseling patient:
--- NOTE | 2019-05-15 15:39 | Emergency Department Note ---
Entered by Chapo Trivedi acting as a scribe for History of Present Illness General Chief complaint: Fall Time Seen by Provider: 05/15/19 08:17 Source: patient and EMS History of Present Illness Onset (ago): minute(s) (this morning) Location: lower extremity, left and right Pain Consistency: + intermittent Quality: + other (weakness) Associated symptoms: + other (right knee and right hip pain, mild head pain, more frequent urination) The patient is an 84 y/o female who presents to the ED w/ CC of resolved weakness to her legs that occurred this morning. The patient states she woke up this morning to use the restroom. She reports on her way to the restroom she became weak and fell. The patient notes she hit her head on what she thinks was a carpeted hard floor. She states she now has mild head pain with right knee pain and right hip pain. The patient also notes she has been urinating more frequently than normal. EMS reports the patient was recently diagnosed with a UTI and placed on Macrobid two days ago. They note the patient did not receive Tylenol. Home Medications Home Medications Medication Instructions Recorded Confirmed Type Centrum Silver 1 tab PO QAM 08/05/18 05/15/19 History atorvastatin 40 mg PO HS 08/05/18 05/15/19 History carvedilol 12.5 mg PO BID 08/05/18 05/15/19 History cholecalciferol (vitamin D3) 2,000 unit PO QAM 08/05/18 05/15/19 History [Vitamin D3] cyanocobalamin (vitamin B-12) 1,000 mcg PO QAM 08/05/18 05/15/19 History [Vitamin B-12] glucosamine-chondroitin [Osteo 1 tab PO QAM 08/05/18 05/15/19 History Bi-Flex] lisinopril 10 mg PO QAM 08/05/18 05/15/19 History oxybutynin chloride 5 mg PO QAM 08/05/18 05/15/19 History Humalog U-100 Insulin 1 sliding scale dose SUBCUT UD 09/29/18 05/15/19 History pantoprazole [Protonix] 40 mg PO QAM 09/29/18 05/15/19 History ascorbic acid (vitamin C) 500 mg 500 mg PO QAM tab 02/26/19 05/15/19 History tablet cyclobenzaprine 10 mg tablet 10 mg PO TID PRN #30 tab 04/12/19 05/15/19 History gabapentin 300 mg capsule 600 mg PO HS #60 cap 04/12/19 05/15/19 History nitrofurantoin 100 mg PO BID #14 cap 05/12/19 05/15/19 Rx monohydrate/macrocrystals 100 mg capsule glipizide 5 mg PO QAM 05/15/19 05/15/19 History levothyroxine 175 mcg PO QAM 05/15/19 05/15/19 History Allergies Allergy/AdvReac Type Severity Reaction Status Date / Time celecoxib Allergy Severe SX OF Verified 05/15/19 08:56 STROKE, FACIAL NUMBNESS, UNABLE TO SPEAK fesoterodine [From Toviaz] Allergy Unknown Unknown Verified 05/15/19 12:27 solifenacin [From Vesicare] Allergy Unknown Unknown Verified 05/15/19 12:27 morphine AdvReac Intermediate Confusion Verified 05/15/19 08:56 ciprofloxacin AdvReac Mild UPSET Verified 05/15/19 12:27 STOMACH metronidazole AdvReac Mild N/V Verified 05/15/19 08:56 Cipro AdvReac Unknown UPSET Verified 02/17/17 12:03 STOMACH Past Med/Surg History Medical History Vitamin D deficiency, unspecified (Acute) Urge incontinence of urine (Acute) Pulmonary nodule (Acute) Presence of cardiac pacemaker (Acute) Orthostatic hypotension (Acute) Nocturia (Acute) Lumbar spondylosis (Acute) Lumbar canal stenosis (Acute) Insomnia (Acute) IBS (irritable bowel syndrome) (Acute) Hypercholesterolemia (Acute) Gait disturbance (Acute) GERD without esophagitis (Acute) Edema (Acute) Diverticulosis of colon (Acute) Diabetic peripheral neuropathy (Acute) Diabetic nephropathy (Acute) Costochondritis (Acute) Carotid artery stenosis (Acute) Cardiomyopathy (Acute) Cardiac defibrillator in place (Acute) Arthritis (Acute) Anemia (Acute) HLD (hyperlipidemia) (Chronic) Hypothyroid (Chronic) GERD (gastroesophageal reflux disease) (Chronic) Hypertension (Chronic) CKD (chronic kidney disease) stage 3, GFR 30-59 ml/min (Chronic) Osteoarthritis (Acute) 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 D/C'D TO [facility]. Scaphoid fracture of wrist Surgical History S/P ICD (internal cardiac defibrillator) procedure Biventricular AICD placed in 2007 S/P partial colectomy S/P hysterectomy S/P appendectomy History of cholecystectomy (Resolved) S/P kyphoplasty (Inactive) History of ERCP w/ sphincterotomy & CBD stent History of cardiac cath PER PT, 5-10 YEARS AGO AT [facility] - REASON? - NO STENTS/ANGIOPLASTY History of colonoscopy History of esophagogastroduodenoscopy (EGD) History of vertebroplasty T12 Family History Son Family history of diabetes mellitus Unknown Breast cancer Sister Breast cancer Social History Preferred Language: Sami Communication Ability: Effective Visual Impairment: No Limitations Conveyor Belt Installer Required: No Beliefs That Will Affect Care: None marital status: Current Living Situation: Spouse Other Information That Helps Us Care for You: No Feels Safe at Home: Yes Smoking Status: Never smoker Second Hand Exposure: No ; Hx Alcohol Use: No Hx Substance Use: No Review of Systems See HPI for pertinent positives & negatives. and A total of 10 systems reviewed and were otherwise negative Physical Exam Vital Signs Vital Signs - 24 hr 05/15/19 08:12 05/15/19 08:17 05/15/19 08:21 Temperature 38.1 C H Temperature Source Oral Sepsis Recent Fever Within 48 Hours Yes Sepsis New/Unexplained Change in Mental Status No Sepsis Action Taken by Nursing Physician Notified Pulse Rate 105 H 105 H 101 H Pulse Rate [Finger] Pulse Rate from SpO2 Sensor 102 H 106 H Respiratory Rate 20 24 22 Respiratory Effort / Characteristics Non-Labored Spontaneous Respiratory Depth Normal Respiratory Pattern Regular Blood Pressure 155/71 H 139/87 155/71 H Blood Pressure Mean 99 104 99 Pulse Oximetry 91 90 94 Oxygen Delivery Method Room Air Oxygen Flow Rate 2 05/15/19 08:30 05/15/19 08:31 05/15/19 08:32 Temperature Temperature Source Sepsis Recent Fever Within 48 Hours Sepsis New/Unexplained Change in Mental Status Sepsis Action Taken by Nursing Pulse Rate 102 H 98 H 101 H Pulse Rate [Finger] Pulse Rate from SpO2 Sensor 102 H 100 H 103 H Respiratory Rate 29 H 19 26 H Respiratory Effort / Characteristics Respiratory Depth Respiratory Pattern Blood Pressure 156/95 H Blood Pressure Mean 115 Pulse Oximetry 94 95 95 Oxygen Delivery Method Oxygen Flow Rate 05/15/19 08:54 05/15/19 09:00 05/15/19 09:19 Temperature Temperature Source Sepsis Recent Fever Within 48 Hours Sepsis New/Unexplained Change in Mental Status Sepsis Action Taken by Nursing Pulse Rate 95 H 100 H Pulse Rate [Finger] 100 H Pulse Rate from SpO2 Sensor 96 H 99 H Respiratory Rate 19 15 18 Respiratory Effort / Characteristics Non-Labored Spontaneous Respiratory Depth Respiratory Pattern Blood Pressure 120/71 Blood Pressure Mean 87 Pulse Oximetry 93 95 94 Oxygen Delivery Method Nasal Cannula Oxygen Flow Rate 2 05/15/19 09:20 05/15/19 10:02 05/15/19 10:05 Temperature Temperature Source Sepsis Recent Fever Within 48 Hours Sepsis New/Unexplained Change in Mental Status Sepsis Action Taken by Nursing Pulse Rate 94 H 91 H 89 Pulse Rate [Finger] Pulse Rate from SpO2 Sensor 94 H 91 H 90 Respiratory Rate 22 23 24 Respiratory Effort / Characteristics Respiratory Depth Respiratory Pattern Blood Pressure 115/72 Blood Pressure Mean 86 Pulse Oximetry 93 93 93 Oxygen Delivery Method Oxygen Flow Rate 05/15/19 10:06 05/15/19 10:30 Temperature Temperature Source Sepsis Recent Fever Within 48 Hours Sepsis New/Unexplained Change in Mental Status Sepsis Action Taken by Nursing Pulse Rate 91 H 87 Pulse Rate [Finger] Pulse Rate from SpO2 Sensor 92 H 87 Respiratory Rate 23 27 H Respiratory Effort / Characteristics Respiratory Depth Respiratory Pattern Blood Pressure 126/60 Blood Pressure Mean 82 Pulse Oximetry 96 91 Oxygen Delivery Method Oxygen Flow Rate GENERAL: Awake, alert, well-appearing, in no acute distress HENT: Normocephalic, atraumatic. Oropharynx unremarkable. EYES: Normal conjunctiva. Sclera non-icteric. NECK: Supple. No nuchal rigidity. FROM. No JVD. RESPIRATORY: Slight crackles bilaterally, more prominent on the left side. No rhonchi or rales. CARDIAC: Regular rate, normal rhythm. Extremities warm and well perfused. Pulses equal. ABDOMEN: Soft, non-distended. No tenderness to palpation. No rebound or guarding. No masses. RECTAL: Deferred. MUSCULOSKELETAL: Chest examination reveals no tenderness. The back is symmetrical on inspection without obvious abnormality. There is no CVA tenderness to palpation. No joint edema. LOWER EXTREMITIES: Calves are equal size bilaterally and non-tender. No edema. No discoloration. NEURO: Normal sensorium. No sensory or motor deficits noted. SKIN: No rash or jaundice noted. Course 0812: Past medical records reviewed. The patient was evaluated in room A02 by the resident under my supervision. A complete history and physical examination was performed. 09: Past medical records reviewed. The patient was evaluated in room A02 by me. A complete history and physical examination was performed. I discussed findings and results with the patient and her family at the bedside. They verbalized agreement of the treatment plan. The patient will be evaluated for further management and care. 1004: I spoke with Dr. Park of the [facility] Hospitalist Service. The patient will be evaluated for further management and care. Administered Medications Atorvastatin Calcium (Lipitor) 40 mg PO HS [facility] Stop: 06/14/19 20:59 Last Admin: 05/15/19 20:49 Dose: 40 mg Documented by: [id number] Carvedilol (Coreg) 12.5 mg PO BID KIM Stop: 06/14/19 20:59 Last Admin: 05/15/19 20:49 Dose: 12.5 mg Documented by: [id number] Cyclobenzaprine HCl (Flexeril) 10 mg PO TID PRN PRN Reason: Muscle Spasm Stop: 06/14/19 12:15 Last Admin: 05/15/19 21:54 Dose: 10 mg Documented by: [id number] Diclofenac Sodium (Voltaren 1% Top) 1 appln EXT TID PRN PRN Reason: Pain in shoulders Stop: 06/14/19 12:15 Last Admin: 05/15/19 12:48 Dose: 1 appln Documented by: [id number] Gabapentin (Neurontin) 600 mg PO HS KIM Stop: 06/14/19 20:59 Last Admin: 05/15/19 20:49 Dose: 600 mg Documented by: [id number] Ceftriaxone Sodium 1,000 mg/ (Dextrose) 50 mls @ 100 mls/hr IV DAILY@1400 KIM; Protocol Stop: 05/20/19 13:59 Last Infusion: 05/15/19 13:47 Dose: 0 mls/hr Documented by: [id number] Admin: 05/15/19 13:04 Dose: 100 mls/hr Documented by: [id number] Insulin Aspart (Novolog Flexpen) 0 units SC ACHS KIM Stop: 06/14/19 12:15 Last Admin: 05/15/19 20:49 Dose: Not Given Documented by: [id number] Cosigned by: [id number] Admin: 05/15/19 17:38 Dose: Not Given Documented by: [id number] Cosigned by: [id number] Admin: 05/15/19 12:49 Dose: 1 units Documented by: [id number] Cosigned by: [id number] Levothyroxine Sodium (Synthroid) 175 mcg PO DAILYBB KIM Stop: 06/15/19 06:29 Last Admin: 05/16/19 05:34 Dose: 175 mcg Documented by: [id number] Discontinued Medications Acetaminophen (Tylenol) 1,000 mg PO NOW STA Stop: 05/15/19 08:39 Last Admin: 05/15/19 09:15 Dose: 1,000 mg Documented by: [id number] Albuterol (Ventolin 0.083% 2.5mg/3ml) 2.5 mg NEB NOW STA Stop: 05/15/19 08:39 Last Admin: 05/15/19 08:51 Dose: 2.5 mg Documented by: [id number] Acetaminophen (Ofirmev) 1,000 mg in 100 mls @ 400 mls/hr IV NOW STA Stop: 05/15/19 08:51 Last Admin: 05/15/19 09:21 Dose: Not Given Documented by: [id number] Sodium Chloride (Nss 1000ml) 500 mls @ 999 mls/hr IV .Q31M ONE Stop: 05/15/19 09:09 Last Infusion: 05/15/19 09:47 Dose: 0 mls/hr Documented by: [id number] Admin: 05/15/19 09:15 Dose: 999 mls/hr Documented by: [id number] Piperacillin Sod/Tazobactam Sod (Zosyn) 3.375 gm in 115 mls @ 230 mls/hr IV NOW STA Stop: 05/15/19 10:15 Last Infusion: 05/15/19 10:47 Dose: 0 mls/hr Documented by: [id number] Admin: 05/15/19 10:09 Dose: 230 mls/hr Documented by: [id number] Levofloxacin/Dextrose (Levaquin/D5w) 750 mg in 150 mls @ 100 mls/hr IV Q24H KIM Stop: 05/22/19 09:59 Last Infusion: 05/15/19 13:11 Dose: 0 mls/hr Documented by: [id number] Admin: 05/15/19 11:03 Dose: 100 mls/hr Documented by: [id number] Medical Decision Making Differential Diagnosis Differential Diagnosis includes but is not limited to dehydration, stroke, an emia, hypoglycemia, hyponatremia, hypernatremia, urinary tract infection, pneumonia, bronchitis, sepsis, gastroenteritis, additional abdominal pathology, metabolic abnormalities and infections. Medical Records Attestation: I reviewed the patient's medical records. Home Medications Current Medication List: was personally reviewed by me Laboratory Data Attestation: I reviewed the patient's lab results. Result diagrams: 05/15/19 08:58 05/15/19 08:58 Lab Results 05/15/19 05/15/19 05/15/19 Range/Units 08:51 08:58 08:58 WBC 11.33 H (4.8-10.8) K/uL RBC 4.39 (4.2-5.4) M/uL Hgb 13.9 (12.0-16.0) g/dL Hct 41.5 (37-47) % MCV 94.5 (80-100) fL MCH 31.7 (25-34) pg MCHC 33.5 (32-36) g/dL RDW Std Deviation 48.4 H (36.4-46.3) fL RDW Coeff of Radha 14.0 (11.5-14.5) % Plt Count 183 (130-400) K/uL MPV 10.2 (7.4-10.4) fL Immature Gran % (Auto) 0.2 % Neut % (Auto) 76.8 % Lymph % (Auto) 9.4 % [place] % (Auto) 11.7 % Eos % (Auto) 1.8 % Baso % (Auto) 0.1 % Immature Gran # (Auto) 0.02 (0.00-0.02) K/uL Neut # (Auto) 8.71 H (1.4-6.5) K/uL Lymph # (Auto) 1.07 L (1.2-3.4) K/uL [place] # (Auto) 1.32 H (0.11-0.59) K/uL Eos # (Auto) 0.20 (0-0.5) K/uL Baso # (Auto) 0.01 (0-0.2) K/uL Sodium 140 (136-145) mmol/L Potassium 3.7 (3.5-5.1) mmol/L Chloride 108 H (98-107) mmol/L Carbon Dioxide 26 (21-32) mmol/L Anion Gap 7.0 (3-11) BUN 18 (7-18) mg/dl Creatinine 1.33 H (0.6-1.2) mg/dl Est Cr Clr Drug Dosing 29.9 ml/min Est GFR ( Amer) 41.8 Est GFR (Non-Af Amer) 36.1 BUN/Creatinine Ratio 13.8 (10-20) Glucose 127 H (70-99) mg/dl Lactate (0.4-2.0) mmol/L Calcium 9.1 (8.5-10.1) mg/dl Total Bilirubin 0.9 (0.2-1) mg/dl AST 71 H (15-37) U/L ALT 68 (12-78) U/L Alkaline Phosphatase 130 H (45-117) U/L Troponin I 0.144 H* (0-0.045) ng/ml Total Protein 7.3 (6.4-8.2) gm/dl Albumin 3.4 (3.4-5.0) gm/dl Globulin 3.9 (2.5-4.0) gm/dl Albumin/Globulin Ratio 0.9 (0.9-2) Lipase 123 (73-393) U/L Urine Color Yellow Urine Appearance Clear (Clear) Urine pH 7.0 (4.5-7.5) Ur Specific [place] 1.011 (1.000-1.030) Urine Protein 1+ H (Negative) Urine Glucose (UA) Negative (Negative) Urine Ketones Negative (Negative) Urine Blood Negative (Negative) Urine Nitrite Negative (Negative) Urine Bilirubin Negative (Negative) Urine Urobilinogen Negative (Negative) Ur Leukocyte Esterase Negative (Negative) Urine WBC (Auto) 0 (0-5) /hpf Urine RBC (Auto) 0-4 (0-4) /hpf U Hyaline Cast (Auto) 0 (0-5) /lpf U Epithel Cells (Auto) 0-5 (0-5) /lpf Urine Bacteria (Auto) Negative (Negative) 05/15/19 Range/Units 09:10 WBC (4.8-10.8) K/uL RBC (4.2-5.4) M/uL Hgb (12.0-16.0) g/dL Hct (37-47) % MCV (80-100) fL MCH (25-34) pg MCHC (32-36) g/dL RDW Std Deviation (36.4-46.3) fL RDW Coeff of Radha (11.5-14.5) % Plt Count (130-400) K/uL MPV (7.4-10.4) fL Immature Gran % (Auto) % Neut % (Auto) % Lymph % (Auto) % [place] % (Auto) % Eos % (Auto) % Baso % (Auto) % Immature Gran # (Auto) (0.00-0.02) K/uL Neut # (Auto) (1.4-6.5) K/uL Lymph # (Auto) (1.2-3.4) K/uL [place] # (Auto) (0.11-0.59) K/uL Eos # (Auto) (0-0.5) K/uL Baso # (Auto) (0-0.2) K/uL Sodium (136-145) mmol/L Potassium (3.5-5.1) mmol/L Chloride (98-107) mmol/L Carbon Dioxide (21-32) mmol/L Anion Gap (3-11) BUN (7-18) mg/dl Creatinine (0.6-1.2) mg/dl Est Cr Clr Drug Dosing ml/min Est GFR ( Amer) Est GFR (Non-Af Amer) BUN/Creatinine Ratio (10-20) Glucose (70-99) mg/dl Lactate 1.1 (0.4-2.0) mmol/L Calcium (8.5-10.1) mg/dl Total Bilirubin (0.2-1) mg/dl AST (15-37) U/L ALT (12-78) U/L Alkaline Phosphatase (45-117) U/L Troponin I (0-0.045) ng/ml Total Protein (6.4-8.2) gm/dl Albumin (3.4-5.0) gm/dl Globulin (2.5-4.0) gm/dl Albumin/Globulin Ratio (0.9-2) Lipase (73-393) U/L Urine Color Urine Appearance (Clear) Urine pH (4.5-7.5) Ur Specific [place] (1.000-1.030) Urine Protein (Negative) Urine Glucose (UA) (Negative) Urine Ketones (Negative) Urine Blood (Negative) Urine Nitrite (Negative) Urine Bilirubin (Negative) Urine Urobilinogen (Negative) Ur Leukocyte Esterase (Negative) Urine WBC (Auto) (0-5) /hpf Urine RBC (Auto) (0-4) /hpf U Hyaline Cast (Auto) (0-5) /lpf U Epithel Cells (Auto) (0-5) /lpf Urine Bacteria (Auto) (Negative) Imaging Data Radiologist's Impression: Radiology results as stated below per my review and the radiologist's interpretation: XR chest 1V portable CLINICAL HISTORY: Hypoxia. Tachycardia. Fall. COMPARISON STUDY: Chest CT September 21, 2018. FINDINGS: Left subclavian pacer/AICD is in place. Patient is rotated. Mediastinal contours are stable. There is slight blunting of left costophrenic angle which is unchanged. There is no evidence for pneumonia or pulmonary edema. Degenerative changes of both glenohumeral joints are incidentally noted. IMPRESSION: No acute cardiopulmonary findings. No change in appearance of the chest. Electronically signed by: Kendall Kirby M.D. 05/15/2019 10:14 AM XR knee RT 2V routine CLINICAL HISTORY: fall COMPARISON: Right knee radiographs October 11, 2011. FINDINGS: Calcifications along the medial femoral condyle are chronic. No acute fracture or joint effusion is noted. There is mild right knee osteoarthritis. IMPRESSION: No acute fracture or joint effusion of the right knee. Electronically signed by: Kendall Kirby M.D. 05/15/2019 10:05 AM XR pelvis 1-2V routine CLINICAL HISTORY: Fall. Right hip pain. Evaluate for fracture. COMPARISON: Pelvis radiograph October 26, 2015. FINDINGS: Left hip arthroplasty is noted. Visualized portions of the hardware are intact. Distal aspect of the femoral component was not imaged on this exam. The sacroiliac joints and symphysis pubis are intact. No acute fracture within the pelvis or hips is identified. IMPRESSION: 1. No acute fracture within the pelvis or hips. 2. Status post total left hip arthroplasty. Electronically signed by: Kendall Kirby M.D. 05/15/2019 10:09 AM XR femur RT 2V routine CLINICAL HISTORY: fall COMPARISON: Right femur radiographs October 11, 2011. FINDINGS: No acute fracture within the right femur is noted. Calcifications along the medial femoral condyle are chronic. Mild right hip osteoarthritis is noted. IMPRESSION: No acute fracture within the right femur. Electronically signed by: Kendall Kirby M.D. 05/15/2019 10:[address] OF THE HEAD WITHOUT CONTRAST CLINICAL HISTORY: Fall. COMPARISON STUDY: Head CT September 21, 2018. CT DOSE: 537.48 mGy.cm TECHNIQUE: Helical axial images of the head were obtained without IV contrast. Automated exposure control was utilized for the study. A dose lowering technique was utilized adhering to the principles of ALARA. FINDINGS: No acute intracranial hemorrhage, midline shift or mass effect is present. Ventricular system is stable. Atrophy is again noted. White matter hypodensity suggests small vessel disease. There is bilateral basal ganglia and cerebellar hemispheric calcification. This is chronic. There are no findings to suggest acute dural sinus thrombosis or acute territorial infarct. There is no calvarial fracture. IMPRESSION: 1. No acute intracranial findings. No change in appearance of the brain. 2. No calvarial fracture. Electronically signed by: Kendall Kirby M.D. 05/15/2019 9:41 AM Blood Pressure Blood Pressure Findings: Normal blood pressure Blood Pressure Disposition: did not require urgent referral MDM Narrative This patient seen in conjunction with the resident. This is an 84-year-old female who presents to the emergency department after being placed on Macrobid. The patient's creatine as well as troponin are both bumped. I did discuss the case with the hospitalist service who agreed to admit the patient. Impression & Plan Fall, Elevated troponin, Urinary tract infection Discharge Plan Visit Data *Final* Discharge Date/Time: 05/15/19 11:35 Chief Complaint: Fall ED Provider: Pro Carvajal ED Midlevel Provider: Stephanie Victor Discharge Problem: Fall, Elevated troponin, Urinary tract infection Patient Disposition: Admitted As Inpatient Discharge Instructions Interventions: ED Discharge Assessment Last Done: 05/15/19 11:35 The scribe's documentation has been prepared under my direction and personally reviewed by me in its entirety. I confirm that the note above accurately reflects all work, treatment, procedures, and medical decision making performed by me.
[2019-05-15] MEDS: GABAPENTIN 600 MG TAB PO SCH (20:49)
[2019-05-15] MEDS: ATORVASTATIN 40 MG TAB PO SCH (20:49)
[2019-05-15] MEDS: CARVEDILOL 12.5 MG TAB PO SCH (20:49)
[2019-05-15] MEDS: CYCLOBENZAPRINE HCL 10 MG TAB PO PRN (21:54)
[2019-05-16] MEDS: LEVOTHYROXINE SODIUM 175 MCG TABLET PO SCH (05:34)
[2019-05-16] MEDS: CARVEDILOL 12.5 MG TAB PO SCH ×2 (08:41→20:10)
[2019-05-16] MEDS: ASCORBIC ACID 500 MG TAB PO SCH (08:41)
[2019-05-16] MEDS: OXYBUTYNIN CHLORIDE 5 MG TAB PO SCH (08:41)
[2019-05-16] MEDS: LISINOPRIL 10 MG TAB PO SCH (08:42)
[2019-05-16] MEDS: PANTOprazole 40 MG TAB PO SCH (08:43)
[2019-05-16] MEDS: INSULIN ASPART 100 UNITS/ML 3 ML PEN SC SCH ×4 (08:49→20:28)
[2019-05-16 09:08] LABS: Hematocrit (blood only) 39.6 % (37-47); Hemoglobin 13.1 g/dL (12.0-16.0); Mean Corpuscular Hgb Conc 33.1 g/dL (32-36); Mean Corpuscular Volume 96.6 fL (80-100); Mean Platelet Volume 9.7 fL (7.4-10.4); Platelet Count 164 K/uL (130-400); RDW Coefficient of Variation 14.3 % (11.5-14.5); RDW Standard Deviation 50.5 fL (36.4-46.3); White Blood Count 8.86 K/uL (4.8-10.8)
[2019-05-16 09:38] LABS: BUN Creatinine Ratio 15.3 (10-20); Calcium 8.8 mg/dl (8.5-10.1); Creatinine Clr Calc Pharmacy 27.3 ml/min; Est GFR (Non-African American) 32.8; Magnesium 2.4 mg/dl (1.8-2.4); Potassium 3.8 mmol/L (3.5-5.1)
[2019-05-16 09:39] LABS: Phosphorus 3.7 mg/dl (2.5-4.9)
[2019-05-16] MEDS: DICLOFENAC SOD 1% GEL 100 GM TUBE EXT PRN (10:14)
[2019-05-16] MEDS: CYCLOBENZAPRINE HCL 10 MG TAB PO PRN ×2 (11:58→21:37)
[2019-05-16] MEDS: ACETAMINOPHEN 325 MG TAB PO PRN (14:42)
--- NOTE | 2019-05-16 14:42 | Hospitalist Progress Note ---
Date of Service May 16, 2019 Assessment & Plan (1) Weakness: Patient presented with fall due to generalized weakness and dizziness. Possible UTI contributing. No loss of consciousness. - PT/OT recommending SNF & patient not sure she can manage at home - CM on Friday (2) Urinary tract infection: This is a tough call. Her UA was clear on admission (05/15); however, she has been on Macrobid for about 2 days which may have affected. I am not sure what is contributing to her fever and subjective chills other than possible mild kidney involvement as Macrobid would not treat anything other than a simple cystitis. No other focal infectious signs/symptoms to pursue. - Ceftriaxone for presumed UTI - Follow blood cultures from 05/15 - No growth so far - Monitor for fever - None since admission (3) Elevated troponin: No symptoms of chest discomfort or palpitations. EKG non-ischemic in atrially-paced rhythm. - Troponins were 0.144 & 0.155. - Continue ASA, beta-niraj, statin, ACEi - No further inpatient needs - Consider outpatient stress. (4) Diabetes: A1c was 6.3% in 03/2019. - Sliding scale insulin - Hold home oral meds (5) Hypertension: BP low-normal inpatient. - Continue home meds (6) CKD (chronic kidney disease) stage 3, GFR 30-59 ml/min: Baseline Cr is ~1.3-1.4, eGFR 35. At baseline on admission. - Avoid nephrotoxins and renally dose meds. (7) Heart disease: Follows with Drs. Otto and Munir for cardiomyopathy. Per outpatient notes, echo from 2012 showed the EF had normalized. - Continue ASA, beta-niraj, statin, ACEi - If any further cardiac concerns, will consult cardiology (8) Hypothyroid: No signs/symptoms of hypo-/hyperthyroidism. - Continue home Synthroid 175 mcg (9) DVT prophylaxis: SCDs - Low DVT risk per admission calculator Subjective Overall feeling improved today, but still very weak. Review of Systems Review of Systems: All systems reviewed & are unremarkable except as noted in HPI & below Physical Exam Constitutional: WD/WN, vitals as above + frail appearing and + in distress Eyes: EOM intact bilaterally; no conjunctival abnormality ENMT: external ear and nose normal, oropharynx normal Neck: trachea midline, no thyromegaly normal visual inspection Respiratory: normal respiratory effort, lungs clear to auscultation no respiratory distress Cardiovascular: Rate/Rhythm: regular rhythm and + tachycardic Heart Sounds: normal S1 and normal S2 Extremities: no edema Gastrointestinal (Abdomen): Inspection/Auscultation: abdomen normal to inspection; abdomen not distended Musculoskeletal: no cyanosis or clubbing, extremities motor strength 5/5 Skin: no rashes, warm and dry Neurologic: moves all extremities and awake Psychiatric: Orientation: alert, oriented to person and cooperative Results & Data Vital Signs (Past 12 Hours) Vital Signs Temp Pulse Pulse Resp BP Pulse Ox 05/16/19 12:13 36.5 C 70 18 105/69 97 05/16/19 08:17 37.1 C 66 18 128/75 96 05/16/19 07:29 71 05/16/19 03:00 37.1 C 73 18 115/70 95 PG Care Time/CCT Total # of Minutes Spent Total Time Spent with Patient: Total time spent is greater than 50% in coordination of care (as documented) at patient's floor/unit and/or counseling patient: (1) Urinary tract infection Hematuria presence: without hematuria Urinary tract infection type: site unspecified Qualified Code(s): N39.0 - Urinary tract infection, site not specified
[2019-05-16] MEDS: cefTRIAXone SODIUM 1,000 MG in DEXTROSE 5% 50 ML IV SCH (14:43)
[2019-05-16] MEDS: GABAPENTIN 600 MG TAB PO SCH (20:10)
[2019-05-16] MEDS: ATORVASTATIN 40 MG TAB PO SCH (20:10)
[2019-05-17] MEDS: ACETAMINOPHEN 325 MG TAB PO PRN ×3 (02:55→19:59)
[2019-05-17] MEDS: LEVOTHYROXINE SODIUM 175 MCG TABLET PO SCH (05:30)
[2019-05-17] MEDS: LISINOPRIL 10 MG TAB PO SCH (08:21)
[2019-05-17] MEDS: INSULIN ASPART 100 UNITS/ML 3 ML PEN SC SCH ×4 (08:21→20:25)
[2019-05-17] MEDS: ASCORBIC ACID 500 MG TAB PO SCH (08:22)
[2019-05-17] MEDS: CARVEDILOL 12.5 MG TAB PO SCH ×2 (08:22→20:00)
[2019-05-17] MEDS: OXYBUTYNIN CHLORIDE 5 MG TAB PO SCH (08:22)
[2019-05-17] MEDS: PANTOprazole 40 MG TAB PO SCH (08:22)
[2019-05-17] MEDS: cefTRIAXone SODIUM 1,000 MG in DEXTROSE 5% 50 ML IV SCH (13:56)
--- NOTE | 2019-05-17 16:44 | Hospitalist Progress Note ---
Date of Service May 17, 2019 Assessment & Plan (1) Weakness: Patient presented with fall due to generalized weakness and dizziness. Possible UTI contributing. No loss of consciousness. - PT/OT recommending SNF & patient not sure she can manage at home She is able to walk but due to pain in her back, she is unable to walk very far -She will definitely benefit from rehab placement (2) Urinary tract infection: She presented with sepsis POA and urinary tract infection-had tachycardia and fever upon admission, mild leukocytosis which is now improved She had an E. coli UTI several days prior to admission and her UA was clear on admission (05/15); however, she has been on Macrobid for about 2 days which may have affected this. She presented with fever and subjective chills-could be acute pyelonephritis as Macrobid would not treat anything other than a simple cystitis. She does have some back pain-x-ray checked and negative for compression fracture Does have mildly elevated LFTs and epigastric pain-lipase is normal -Fevers have now resolved, dysuria is now improving -Continue ceftriaxone for presumed UTI - Follow blood cultures from 05/15 - No growth so far (3) Elevated troponin: No symptoms of chest discomfort or palpitations. EKG non-ischemic in atrially-paced rhythm. - Troponins were 0.144 & 0.155. This is most likely myocardial demand ischemia secondary to sepsis as above - Continue beta-niraj, statin, ACEi-she is not on aspirin as an outpatient - No further inpatient needs - Consider outpatient stress. (4) Diabetes: A1c was 6.3% in 03/2019. -Continue sliding scale insulin - Hold home oral meds (5) Hypertension: BP low-normal here - Continue home meds -Restart gentle IV fluids with 500 mL's of normal saline (6) CKD (chronic kidney disease) stage 3, GFR 30-59 ml/min: Baseline Cr is ~1.3-1.4, eGFR 35. At baseline on admission. Creatinine now up today to 1.7 indicating acute kidney injury Likely from poor p.o. intake and dehydration - Avoid nephrotoxins and renally dose meds. -Start normal saline 500 mL's at 80 mL's per hour -Follow BMP in the morning (7) Heart disease: Follows with Drs. Otto and Munir for cardiomyopathy. Per outpatient notes, echo from 2012 showed the EF had normalized. - Continue beta-niraj, statin, ACEi - If any further cardiac concerns, will consult cardiology -Is not on aspirin presumably due to previous peptic ulcer disease (8) Hypothyroid: No signs/symptoms of hypo-/hyperthyroidism. - Continue home Synthroid 175 mcg (9) Presence of cardiac pacemaker: History of biventricular pacemaker/ICD placement for previous cardiomyopathy (10) Elevated LFTs: AST and alkaline phosphatase mildly elevated on admission and now improved today Lipase is normal Does have some epigastric abdominal pain -is s/p cholecystectomy, had biliary stent placed and then removed in September/2018 for choledocholithiasis with pancreatitis -As LFTs are improving, will hold off on further imaging of the biliary tract at this time, but if LFTs worsen and pain worsens, will consider MRCP (11) Epigastric abdominal pain: As above (12) Back pain: 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 Denies nausea. She could only walk 10 feet with physical therapy today. She also complains of more chronic pain in her bilateral shoulders. Was having some dysuria but that is improving. Telemetry with paced rhythm with rates in the 60s to 70s Review of Systems Review of Systems: All systems reviewed & are unremarkable except as noted in HPI & below Physical Exam Constitutional: WD/WN, vitals as above Eyes: + anicteric sclerae ENMT: external ear and nose normal, oropharynx normal Neck: trachea midline, no thyromegaly Respiratory: normal respiratory effort, lungs clear to auscultation Cardiovascular: RRR, no murmur, no edema Gastrointestinal (Abdomen): Inspection/Auscultation: abdomen normal to inspection and normal bowel sounds; abdomen not distended Percussion/Palpation: + abdomen tender (In the epigastric region without guarding or rebound tenderness) and abdomen soft; no guarding, abdomen not rigid, no hernia and no abdominal mass Musculoskeletal: Spine: + thoracic spinal tenderness (Over the mid thoracic spine, no step-offs); no paraspinal tenderness Extremities: extremities normal to inspection (No joint effusions); no cyanosis and no clubbing Skin: no rashes, warm and dry Neurologic: moves all extremities and awake; no focal motor deficits Psychiatric: A+Ox3, euthymic affect Results & Data Vital Signs (Past 12 Hours) Vital Signs Temp Pulse Pulse Resp BP Pulse Ox 05/17/19 16:06 64 05/17/19 14:59 36.7 C 63 20 99/58 L 96 05/17/19 13:38 91 05/17/19 12:00 36.5 C 71 18 103/67 97 05/17/19 08:45 65 05/17/19 08:25 70 109/68 05/17/19 07:09 36.4 C L 83 18 93/60 L 97 Laboratory Results 05/17/19 05/17/19 05/17/19 Range/Units 18:45 17:14 17:14 WBC 8.20 (4.8-10.8) K/uL RBC 3.86 L (4.2-5.4) M/uL Hgb 12.1 (12.0-16.0) g/dL Hct 37.4 (37-47) % MCV 96.9 (80-100) fL MCH 31.3 (25-34) pg MCHC 32.4 (32-36) g/dL RDW Std Deviation 51.2 H (36.4-46.3) fL RDW Coeff of Radha 14.4 (11.5-14.5) % Plt Count 191 (130-400) K/uL MPV 10.9 H (7.4-10.4) fL Immature Gran % (Auto) 0.2 % Neut % (Auto) 60.3 % Lymph % (Auto) 20.1 % Person % (Auto) 14.4 % Eos % (Auto) 4.9 % Baso % (Auto) 0.1 % Immature Gran # (Auto) 0.02 (0.00-0.02) K/uL Neut # (Auto) 4.94 (1.4-6.5) K/uL Lymph # (Auto) 1.65 (1.2-3.4) K/uL Person # (Auto) 1.18 H (0.11-0.59) K/uL Eos # (Auto) 0.40 (0-0.5) K/uL Baso # (Auto) 0.01 (0-0.2) K/uL Sodium 143 (136-145) mmol/L Potassium Pending (3.5-5.1) mmol/L Chloride 108 H (98-107) mmol/L Carbon Dioxide 29 (21-32) mmol/L Anion Gap 6.0 (3-11) BUN 30 H (7-18) mg/dl Creatinine 1.73 H (0.6-1.2) mg/dl Est Cr Clr Drug Dosing 22.7 ml/min Est GFR ( Amer) 30.5 Est GFR (Non-Af Amer) 26.3 BUN/Creatinine Ratio 17.2 (10-20) Glucose 116 H (70-99) mg/dl POC Glucose (70-99) Calcium 8.7 (8.5-10.1) mg/dl Total Bilirubin 0.5 (0.2-1) mg/dl Direct Bilirubin Pending (0-0.2) mg/dl AST 41 H (15-37) U/L ALT 40 (12-78) U/L Alkaline Phosphatase 134 H (45-117) U/L Total Protein 6.7 (6.4-8.2) gm/dl Albumin 2.7 L (3.4-5.0) gm/dl Lipase 138 (73-393) U/L 05/17/19 05/17/19 05/17/19 Range/Units 16:11 11:48 07:29 WBC (4.8-10.8) K/uL RBC (4.2-5.4) M/uL Hgb (12.0-16.0) g/dL Hct (37-47) % MCV (80-100) fL MCH (25-34) pg MCHC (32-36) g/dL RDW Std Deviation (36.4-46.3) fL RDW Coeff of Radha (11.5-14.5) % Plt Count (130-400) K/uL MPV (7.4-10.4) fL Immature Gran % (Auto) % Neut % (Auto) % Lymph % (Auto) % Person % (Auto) % Eos % (Auto) % Baso % (Auto) % Immature Gran # (Auto) (0.00-0.02) K/uL Neut # (Auto) (1.4-6.5) K/uL Lymph # (Auto) (1.2-3.4) K/uL Person # (Auto) (0.11-0.59) K/uL Eos # (Auto) (0-0.5) K/uL Baso # (Auto) (0-0.2) K/uL Sodium (136-145) mmol/L Potassium (3.5-5.1) mmol/L Chloride (98-107) mmol/L Carbon Dioxide (21-32) mmol/L Anion Gap (3-11) BUN (7-18) mg/dl Creatinine (0.6-1.2) mg/dl Est Cr Clr Drug Dosing ml/min Est GFR ( Amer) Est GFR (Non-Af Amer) BUN/Creatinine Ratio (10-20) Glucose (70-99) mg/dl POC Glucose 108 H 127 H 98 (70-99) Calcium (8.5-10.1) mg/dl Total Bilirubin (0.2-1) mg/dl Direct Bilirubin (0-0.2) mg/dl AST (15-37) U/L ALT (12-78) U/L Alkaline Phosphatase (45-117) U/L Total Protein (6.4-8.2) gm/dl Albumin (3.4-5.0) gm/dl Lipase (73-393) U/L 05/16/19 Range/Units 20:18 WBC (4.8-10.8) K/uL RBC (4.2-5.4) M/uL Hgb (12.0-16.0) g/dL Hct (37-47) % MCV (80-100) fL MCH (25-34) pg MCHC (32-36) g/dL RDW Std Deviation (36.4-46.3) fL RDW Coeff of Radha (11.5-14.5) % Plt Count (130-400) K/uL MPV (7.4-10.4) fL Immature Gran % (Auto) % Neut % (Auto) % Lymph % (Auto) % Person % (Auto) % Eos % (Auto) % Baso % (Auto) % Immature Gran # (Auto) (0.00-0.02) K/uL Neut # (Auto) (1.4-6.5) K/uL Lymph # (Auto) (1.2-3.4) K/uL Person # (Auto) (0.11-0.59) K/uL Eos # (Auto) (0-0.5) K/uL Baso # (Auto) (0-0.2) K/uL Sodium (136-145) mmol/L Potassium (3.5-5.1) mmol/L Chloride (98-107) mmol/L Carbon Dioxide (21-32) mmol/L Anion Gap (3-11) BUN (7-18) mg/dl Creatinine (0.6-1.2) mg/dl Est Cr Clr Drug Dosing ml/min Est GFR ( Amer) Est GFR (Non-Af Amer) BUN/Creatinine Ratio (10-20) Glucose (70-99) mg/dl POC Glucose 125 H (70-99) Calcium (8.5-10.1) mg/dl Total Bilirubin (0.2-1) mg/dl Direct Bilirubin (0-0.2) mg/dl AST (15-37) U/L ALT (12-78) U/L Alkaline Phosphatase (45-117) U/L Total Protein (6.4-8.2) gm/dl Albumin (3.4-5.0) gm/dl Lipase (73-393) U/L Diagnostic Findings XR thoracic spine 3V routine HISTORY: Trauma. Pain. fall, mid back pain, r/o compression fracture COMPARISON: 08/22/2014 FINDINGS: There is no fracture. No subluxation. Considerable degenerative disc changes throughout. Considerable reactive anterior osteophytic change. Findings of prior kyphoplasty involving T12. IMPRESSION: 1. Extensive degenerative change. 2. No acute process. PG Care Time/CCT Total # of Minutes Spent Total Time Spent with Patient: Total time spent is greater than 50% in coordination of care (as documented) at patient's floor/unit and/or counseling patient: (1) Urinary tract infection Hematuria presence: without hematuria Urinary tract infection type: site unspecified Qualified Code(s): N39.0 - Urinary tract infection, site not specified
[2019-05-17 17:43] LABS: Basophils # (auto) 0.01 K/uL (0-0.2); Basophils % (auto) 0.1 %; Eosinophils % (auto) 4.9 %; Hematocrit (blood only) 37.4 % (37-47); Hemoglobin 12.1 g/dL (12.0-16.0); Immature Granulocytes # (auto) 0.02 K/uL (0.00-0.02); Immature Granulocytes % (auto) 0.2 %; Lymphocytes # (auto) 1.65 K/uL (1.2-3.4); Lymphocytes % (auto) 20.1 %; Mean Corpuscular Hemoglobin 31.3 pg (25-34); Mean Corpuscular Hgb Conc 32.4 g/dL (32-36); Mean Corpuscular Volume 96.9 fL (80-100); Mean Platelet Volume 10.9 fL (7.4-10.4); Monocytes # (auto) 1.18 K/uL (0.11-0.59); Monocytes % (auto) 14.4 %; Neutrophils # (auto) 4.94 K/uL (1.4-6.5); Neutrophils % (auto) 60.3 %; Platelet Count 191 K/uL (130-400); RDW Coefficient of Variation 14.4 % (11.5-14.5); RDW Standard Deviation 51.2 fL (36.4-46.3); Red Blood Count 3.86 M/uL (4.2-5.4)
--- NOTE | 2019-05-17 18:23 | XRay Report ---
XR thoracic spine 3V routine HISTORY: Trauma. Pain. fall, mid back pain, r/o compression fracture COMPARISON: 08/22/2014 FINDINGS: There is no fracture. No subluxation. Considerable degenerative disc changes throughout. C onsiderable reactive anterior osteophytic change. Findings of prior kyphoplasty involving T12. IMPRESSION: 1. Extensive degenerative change. 2. No acute process. The above report was generated using voice recognition software. It may contain grammatical, syntax or spelling errors. Electronically signed by: Wisam Noonan M.D. 05/17/2019 6:22 PM
[2019-05-17 18:30] LABS: Albumin Level 2.7 gm/dl (3.4-5.0); BUN Creatinine Ratio 17.2 (10-20); Bilirubin,Total 0.5 mg/dl (0.2-1); Calcium 8.7 mg/dl (8.5-10.1); Creatinine Clr Calc Pharmacy 22.7 ml/min; Est GFR (African American) 30.5; Est GFR (Non-African American) 26.3; Total Protein 6.7 gm/dl (6.4-8.2)
[2019-05-17] MEDS: SODIUM CHLORIDE 0.9% 1000ML 1,000 ML IV SCH (19:10)
[2019-05-17 19:23] LABS: Bilirubin Direct 0.2 mg/dl (0-0.2)
[2019-05-17] MEDS: ATORVASTATIN 40 MG TAB PO SCH (20:01)
[2019-05-17] MEDS: GABAPENTIN 600 MG TAB PO SCH (20:02)
[2019-05-18] MEDS: LEVOTHYROXINE SODIUM 175 MCG TABLET PO SCH (06:04)
[2019-05-18 06:12] LABS: Basophils # (auto) 0.01 K/uL (0-0.2); Basophils % (auto) 0.1 %; Eosinophils # (auto) 0.45 K/uL (0-0.5); Eosinophils % (auto) 6.1 %; Hematocrit (blood only) 38.8 % (37-47); Hemoglobin 12.6 g/dL (12.0-16.0); Immature Granulocytes # (auto) 0.02 K/uL (0.00-0.02); Immature Granulocytes % (auto) 0.3 %; Lymphocytes # (auto) 2.25 K/uL (1.2-3.4); Lymphocytes % (auto) 30.7 %; Mean Corpuscular Hemoglobin 31.4 pg (25-34); Mean Corpuscular Hgb Conc 32.5 g/dL (32-36); Mean Corpuscular Volume 96.8 fL (80-100); Mean Platelet Volume 10.8 fL (7.4-10.4); Monocytes # (auto) 0.96 K/uL (0.11-0.59); Monocytes % (auto) 13.1 %; Neutrophils # (auto) 3.65 K/uL (1.4-6.5); Neutrophils % (auto) 49.7 %; Platelet Count 173 K/uL (130-400); RDW Coefficient of Variation 14.1 % (11.5-14.5); RDW Standard Deviation 50.6 fL (36.4-46.3); Red Blood Count 4.01 M/uL (4.2-5.4); White Blood Count 7.34 K/uL (4.8-10.8)
[2019-05-18 06:58] LABS: Albumin Level 2.6 gm/dl (3.4-5.0); BUN Creatinine Ratio 19.8 (10-20); Bilirubin Direct 0.2 mg/dl (0-0.2); Calcium 8.5 mg/dl (8.5-10.1); Creatinine Clr Calc Pharmacy 28.9 ml/min; Est GFR (African American) 40.7; Est GFR (Non-African American) 35.1; Potassium 3.6 mmol/L (3.5-5.1)
[2019-05-18 07:01] LABS: Bilirubin,Total 0.7 mg/dl (0.2-1); Total Protein 6.4 gm/dl (6.4-8.2)
[2019-05-18] MEDS: SODIUM CHLORIDE 0.9% 1000ML 1,000 ML IV SCH ×2 (08:23→19:28)
[2019-05-18] MEDS: INSULIN ASPART 100 UNITS/ML 3 ML PEN SC SCH ×4 (09:34→20:24)
[2019-05-18] MEDS: CARVEDILOL 12.5 MG TAB PO SCH ×2 (09:40→20:20)
[2019-05-18] MEDS: PANTOprazole 40 MG TAB PO SCH (09:41)
[2019-05-18] MEDS: ASCORBIC ACID 500 MG TAB PO SCH (09:41)
[2019-05-18] MEDS: OXYBUTYNIN CHLORIDE 5 MG TAB PO SCH (09:41)
[2019-05-18] MEDS: LISINOPRIL 10 MG TAB PO SCH (09:42)
[2019-05-18] MEDS: CYCLOBENZAPRINE HCL 10 MG TAB PO PRN (09:42)
[2019-05-18] MEDS: ACETAMINOPHEN 325 MG TAB PO PRN ×2 (09:43→23:30)
[2019-05-18 09:55] LABS: Cdiff Antigen Positive; Cdiff Toxin A+B Negative Cdiff Toxin (Negative)
[2019-05-18] MEDS ORDERED: LOPERAMIDE HCL 2 MG CAP PO STA (11:49)
[2019-05-18] MEDS ORDERED: LOPERAMIDE HCL 2 MG CAP PO PRN (11:50)
[2019-05-18] MEDS: DICLOFENAC SOD 1% GEL 100 GM TUBE EXT PRN (13:26)
[2019-05-18] MEDS ORDERED: Nursing to Pharmacy Communication ONE (14:15)
[2019-05-18] MEDS: cefTRIAXone SODIUM 1,000 MG in DEXTROSE 5% 50 ML IV SCH (14:28)
[2019-05-18] MEDS ORDERED: LIDOCAINE 5% 1 PATCH TD SCH (15:00)
--- NOTE | 2019-05-18 17:47 | Hospitalist Progress Note ---
Date of Service May 18, 2019 Assessment & Plan (1) Weakness: Patient presented with fall due to generalized weakness and dizziness. Possible UTI as well as multiple areas of chronic pain as well as abdominal pain contributing. No loss of consciousness. - PT/OT recommending SNF & patient not sure she can manage at home--> now agreeable to SNF placement She is able to walk but due to pain in her back, she is unable to walk very far -She will definitely benefit from rehab placement (2) Urinary tract infection: She presented with sepsis POA and urinary tract infection-had tachycardia and fever upon admission, mild leukocytosis which is now improved She had an E. coli UTI several days prior to admission and her UA was clear on admission (05/15); however, she has been on Macrobid for about 2 days which may have affected this. She presented with fever and subjective chills-could be acute pyelonephritis as Macrobid would not treat anything other than a simple cystitis. She does have some back pain-x-ray checked and negative for compression fracture Does have mildly elevated LFTs which are now improving, and epigastric pain- lipase is normal -Fevers have now resolved, dysuria is now resolved -Continue ceftriaxone for presumed UTI and finish out 7 day course - Follow blood cultures from 05/15 - No growth so far (3) Elevated troponin: No symptoms of chest discomfort or palpitations. EKG non-ischemic in atrially-paced rhythm. - Troponins were 0.144 & 0.155. This is most likely myocardial demand ischemia secondary to sepsis as above - Continue beta-niraj, statin, ACEi-she is not on aspirin as an outpatient - No further inpatient needs - Consider outpatient stress. (4) Diabetes: A1c was 6.3% in 03/2019. -Continue sliding scale insulin - Hold home oral meds (5) Hypertension: BP was low and now normal with IVF resuscitation - Continue home meds (6) CKD (chronic kidney disease) stage 3, GFR 30-59 ml/min: Baseline Cr is ~1.3-1.4, eGFR 35. At baseline on admission. Creatinine went up to 1.7 indicating acute kidney injury, no wimproved to 1.3 with IVFs Likely from poor p.o. intake and dehydration - Avoid nephrotoxins and renally dose meds. -continue IVFs with NS 80 mL's per hour now with diarrhea -Follow BMP in the morning (7) Heart disease: Follows with Drs. Otto and Munir for cardiomyopathy. Per outpatient notes, echo from 2012 showed the EF had normalized. - Continue beta-niraj, statin, ACEi - If any further cardiac concerns, will consult cardiology -Is not on aspirin presumably due to previous peptic ulcer disease (8) Hypothyroid: No signs/symptoms of hypo-/hyperthyroidism. - Continue home Synthroid 175 mcg (9) Presence of cardiac pacemaker: History of biventricular pacemaker/ICD placement for previous cardiomyopathy (10) Elevated LFTs: AST and alkaline phosphatase mildly elevated on admission and now continue to be improved/normal today Lipase is normal Does have some epigastric abdominal pain -is s/p cholecystectomy, had biliary stent placed and then removed in September/2018 for choledocholithiasis with pancreatitis -abd pain persists despite LFTs normalizing, also with mid back pain -will check CT Abd/pel (11) Epigastric abdominal pain: As above (12) Back pain: 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, did have a fall where she slid down as her lowered to the ground and then she landed on her back several days prior to admission Thoracic spine x-ray without compression fractures -Continue pain management with acetaminophen as above -Continue Voltaren gel -add lidocaine patch and tramadol prn (13) Diarrhea: With multiple nonbloody loose stools last 24 hours C diff toxin negative, gene positive, indicates carrier state -start loperamide prn -start probiotics -may be due to abx-associated diarrhea -checking CT abd/pel -check stool cx -hydrate (14) DVT prophylaxis: SCDs - Low DVT risk per admission calculator Disposition-continued stay for abd pain, back pain, now with diarrhea plan for SNF placement, wants [facility] Subjective Pt still having epigastric abd pain, multiple episodes of diarrhea today,nonbloody. C. diff gene positive but toxin negative. Still with mid back pain. Lidocaine patch was ordered fo [facility] but she wanted it on her right shoulder as she says that hurts more than her back (and has for 8 months). No CP or SOB Review of Systems Review of Systems: All systems reviewed & are unremarkable except as noted in HPI & below Physical Exam Constitutional: WD/WN, vitals as above Eyes: + anicteric sclerae ENMT: external ear and nose normal, oropharynx normal Neck: trachea midline, no thyromegaly Respiratory: normal respiratory effort, lungs clear to auscultation Cardiovascular: RRR, no murmur, no edema Gastrointestinal (Abdomen): Inspection/Auscultation: abdomen normal to inspection and normal bowel sounds; abdomen not distended Percussion/Palpation: + abdomen tender (In the epigastric region without guarding or rebound tenderness) and abdomen soft; no guarding, abdomen not rigid, no hernia and no abdominal mass Musculoskeletal: Spine: + thoracic spinal tenderness (Over the mid thoracic spine, no step-offs); no paraspinal tenderness Extremities: extremities normal to inspection (No joint effusions); no cyanosis and no clubbing Skin: no rashes, warm and dry Neurologic: moves all extremities and awake; no focal motor deficits Psychiatric: A+Ox3, euthymic affect Results & Data Vital Signs (Past 12 Hours) Vital Signs Temp Pulse Resp BP Pulse Ox 05/18/19 15:23 36.7 C 68 18 111/66 93 05/18/19 13:33 92 05/18/19 07:31 36.9 C 71 18 127/75 90 Laboratory Results 05/18/19 05/18/19 05/18/19 Range/Units 16:20 11:32 08:11 WBC (4.8-10.8) K/uL RBC (4.2-5.4) M/uL Hgb (12.0-16.0) g/dL Hct (37-47) % MCV (80-100) fL MCH (25-34) pg MCHC (32-36) g/dL RDW Std Deviation (36.4-46.3) fL RDW Coeff of Radha (11.5-14.5) % Plt Count (130-400) K/uL MPV (7.4-10.4) fL Immature Gran % (Auto) % Neut % (Auto) % Lymph % (Auto) % Beaver % (Auto) % Eos % (Auto) % Baso % (Auto) % Immature Gran # (Auto) (0.00-0.02) K/uL Neut # (Auto) (1.4-6.5) K/uL Lymph # (Auto) (1.2-3.4) K/uL Beaver # (Auto) (0.11-0.59) K/uL Eos # (Auto) (0-0.5) K/uL Baso # (Auto) (0-0.2) K/uL Sodium (136-145) mmol/L Potassium (3.5-5.1) mmol/L Chloride (98-107) mmol/L Carbon Dioxide (21-32) mmol/L Anion Gap (3-11) BUN (7-18) mg/dl Creatinine (0.6-1.2) mg/dl Est Cr Clr Drug Dosing ml/min Est GFR ( Amer) Est GFR (Non-Af Amer) BUN/Creatinine Ratio (10-20) Glucose (70-99) mg/dl POC Glucose 96 184 H 94 (70-99) Calcium (8.5-10.1) mg/dl Total Bilirubin (0.2-1) mg/dl Direct Bilirubin (0-0.2) mg/dl AST (15-37) U/L ALT (12-78) U/L Alkaline Phosphatase (45-117) U/L Total Protein (6.4-8.2) gm/dl Albumin (3.4-5.0) gm/dl Lipase (73-393) U/L Stl C. diff Tox B Gene (Neg) Stl C.difficile Tox A&B (Negative) 05/18/19 05/18/19 05/18/19 Range/Units 05:52 05:37 05:37 WBC 7.34 (4.8-10.8) K/uL RBC 4.01 L (4.2-5.4) M/uL Hgb 12.6 (12.0-16.0) g/dL Hct 38.8 (37-47) % MCV 96.8 (80-100) fL MCH 31.4 (25-34) pg MCHC 32.5 (32-36) g/dL RDW Std Deviation 50.6 H (36.4-46.3) fL RDW Coeff of Radha 14.1 (11.5-14.5) % Plt Count 173 (130-400) K/uL MPV 10.8 H (7.4-10.4) fL Immature Gran % (Auto) 0.3 % Neut % (Auto) 49.7 % Lymph % (Auto) 30.7 % Beaver % (Auto) 13.1 % Eos % (Auto) 6.1 % Baso % (Auto) 0.1 % Immature Gran # (Auto) 0.02 (0.00-0.02) K/uL Neut # (Auto) 3.65 (1.4-6.5) K/uL Lymph # (Auto) 2.25 (1.2-3.4) K/uL Beaver # (Auto) 0.96 H (0.11-0.59) K/uL Eos # (Auto) 0.45 (0-0.5) K/uL Baso # (Auto) 0.01 (0-0.2) K/uL Sodium 143 (136-145) mmol/L Potassium 3.6 (3.5-5.1) mmol/L Chloride 110 H (98-107) mmol/L Carbon Dioxide 26 (21-32) mmol/L Anion Gap 7.0 (3-11) BUN 27 H (7-18) mg/dl Creatinine 1.36 H D (0.6-1.2) mg/dl Est Cr Clr Drug Dosing 28.9 ml/min Est GFR ( Amer) 40.7 Est GFR (Non-Af Amer) 35.1 BUN/Creatinine Ratio 19.8 (10-20) Glucose 85 (70-99) mg/dl POC Glucose (70-99) Calcium 8.5 (8.5-10.1) mg/dl Total Bilirubin 0.7 (0.2-1) mg/dl Direct Bilirubin 0.2 (0-0.2) mg/dl AST 31 (15-37) U/L ALT 36 (12-78) U/L Alkaline Phosphatase 142 H (45-117) U/L Total Protein 6.4 (6.4-8.2) gm/dl Albumin 2.6 L (3.4-5.0) gm/dl Lipase 125 (73-393) U/L Stl C. diff Tox B Gene Positive Cdiff Gene H (Neg) Stl C.difficile Tox A&B Negative Cdiff Toxin (Negative) 05/17/19 05/17/19 05/17/19 Range/Units 20:16 18:45 17:14 WBC (4.8-10.8) K/uL RBC (4.2-5.4) M/uL Hgb (12.0-16.0) g/dL Hct (37-47) % MCV (80-100) fL MCH (25-34) pg MCHC (32-36) g/dL RDW Std Deviation (36.4-46.3) fL RDW Coeff of Radha (11.5-14.5) % Plt Count (130-400) K/uL MPV (7.4-10.4) fL Immature Gran % (Auto) % Neut % (Auto) % Lymph % (Auto) % Beaver % (Auto) % Eos % (Auto) % Baso % (Auto) % Immature Gran # (Auto) (0.00-0.02) K/uL Neut # (Auto) (1.4-6.5) K/uL Lymph # (Auto) (1.2-3.4) K/uL Beaver # (Auto) (0.11-0.59) K/uL Eos # (Auto) (0-0.5) K/uL Baso # (Auto) (0-0.2) K/uL Sodium 143 (136-145) mmol/L Potassium 4.0 (3.5-5.1) mmol/L Chloride 108 H (98-107) mmol/L Carbon Dioxide 29 (21-32) mmol/L Anion Gap 6.0 (3-11) BUN 30 H (7-18) mg/dl Creatinine 1.73 H (0.6-1.2) mg/dl Est Cr Clr Drug Dosing 22.7 ml/min Est GFR ( Amer) 30.5 Est GFR (Non-Af Amer) 26.3 BUN/Creatinine Ratio 17.2 (10-20) Glucose 116 H (70-99) mg/dl POC Glucose 106 H (70-99) Calcium 8.7 (8.5-10.1) mg/dl Total Bilirubin 0.5 (0.2-1) mg/dl Direct Bilirubin 0.2 (0-0.2) mg/dl AST 41 H (15-37) U/L ALT 40 (12-78) U/L Alkaline Phosphatase 134 H (45-117) U/L Total Protein 6.7 (6.4-8.2) gm/dl Albumin 2.7 L (3.4-5.0) gm/dl Lipase 138 (73-393) U/L Stl C. diff Tox B Gene (Neg) Stl C.difficile Tox A&B (Negative) PG Care Time/CCT Total # of Minutes Spent Total Time Spent with Patient: Total time spent is greater than 50% in coordination of care (as documented) at patient's floor/unit and/or counseling patient: (1) Urinary tract infection Hematuria presence: without hematuria Urinary tract infection type: site unspecified Qualified Code(s): N39.0 - Urinary tract infection, site not specified
[2019-05-18] MEDS ORDERED: IOVERSOL 100ml IV PRN (18:27)
--- NOTE | 2019-05-18 18:58 | CT Scan Report ---
ABDOMEN AND PELVIS CT WITH IV AND ORAL CONTRAST CT DOSE: 1008.29 mGy.cm HISTORY: Acute epigastric abdominal pain with acute mid and lower back pain. epigastric abdominal pa in, mid to lower back pain TECHNIQUE: Multiaxial CT images of the abdomen and pelvis were performed following the use of intrave nous and oral contrast. A dose lowering technique was utilized adhering to the principles of ALARA. COMPARISON STUDY: CT abdomen and pelvis 09/21/2018, CT abdomen and pelvis 02/18/2000 08/07/2015. FINDINGS: Trace right pleural effusion with mild dependent subsegmental bibasilar atelectasis. 6 mm pulmonary n odule of the inferior segment lingula appears unchanged. No pneumatosis or pneumoperitoneum. Imaged i nferior cardiac chambers are mildly enlarged with coronary arterial disease. Trace pericardial effusi on. Partially imaged pacer leads. Prior cholecystectomy. Pneumobilia redemonstrated about the intrahepatic and extrahepatic biliary aydee e. Status post removal of the previously described common bile duct stent. Mild wall thickening of th e cystic duct and common bile duct. Generalized pancreatic atrophy. Coarse calcifications about the p ancreatic parenchyma suggests chronic pancreatitis. 10 mm cystic focus of the pancreatic tail suggest s possible sidebranch IPMN, unchanged. Mild thickening of the bilateral adrenal glands. Mild atrophy of the left kidney. Mild nonspecific bilateral perinephric stranding. No renal calculi or obstructive uropathy. The pelvic structures are suboptimally visualized secondary to streak artifact from left h ip arthroplasty. Prior hysterectomy. No adnexal mass lesions. Extensive calcification of the aorta wi thout aneurysm. Ectasia of the aorta measures up to 2.3 cm. No adenopathy. No bowel obstruction. [place] idalmis diverticulosis without acute diverticulitis. Mild wall thickening of the inferior rectum and anor ectal junction appears unchanged. No ascites or mesenteric inflammatory changes. Soft tissues are unr emarkable. Atrophy of the paraspinal musculature. Demineralized appearance of the bones. Multilevel advanced facet arthrosis with spondylitic spurring and intervertebral disc space narrowing. Convex right curvature of the mid lumbar spine. Left hip art hroplasty. Remote compression deformity with kyphoplasty changes at T12. No definite acute compressio n deformity of the lumbar spine. Multiple healed remote right-sided rib fractures. IMPRESSION: 1. Trace pleural effusions with bibasilar opacities suggestive of atelectasis. 2. 6 mm solid nodule of the lingula appears unchanged from 09/21/2018. 3. No bowel obstruction. 4. Mild nonspecific wall thickening of the inferior rectum and anorectal junction. Correlate with cli nical exam. 5. Status post removal of the common bile duct stent. Persistent pneumobilia compatible with prior sp hincterotomy. Mild wall thickening with increased enhancement of the common bile duct may be on a pos tprocedural basis. Correlate with laboratory analysis to exclude cholangitis. 6. Additional findings as above. Please refer to below summary of Fleischner criteria recommendations for follow-up of incidental CT n odules (Amy Bustos, Guidelines for management of small pulmonary nodules detected on CT scans: A sta tement from the Fleischner Society, Radiology 237: [id number].) SOLID NODULES Solitary nodule size: <6 mm * Low risk patients: no follow-up needed * high risk patients: optional CT at 12 months Solitary nodule size: 6-8 mm * Low risk patients: follow-up at 6-12 months, then consider further follow-up at 18-24 months * high risk patients: initial follow-up CT at 6-12 months and then at 18-24 months if no change Note: newly detected indeterminate nodule in persons 35 years of age or older. * Low risk patients: minimal or absent history of smoking and/or other known risk factors * high risk patients: history of smoking or of other known risk factors (e.g. first degree relative with lung cancer, or exposure to asbestos, radon, uranium) * if a nodule up to 8 mm is partly solid or is ground glass further follow-up is required after 24 m onths to exclude possible slow growing adenocarcinoma (MARY GRACE) The above report was generated using voice recognition software. It may contain grammatical, syntax o r spelling errors. Electronically signed by: Froylan Kou M.D. 05/18/2019 6:56 PM
[2019-05-18] MEDS ORDERED: LIDOCAINE 5% 1 PATCH TD ONE (19:15)
[2019-05-18] MEDS: TRAMADOL HCL 50 MG TABLET PO PRN (19:52)
[2019-05-18] MEDS: ATORVASTATIN 40 MG TAB PO SCH (20:15)
[2019-05-18] MEDS: GABAPENTIN 600 MG TAB PO SCH (20:17)
[2019-05-19] MEDS: LEVOTHYROXINE SODIUM 175 MCG TABLET PO SCH (05:43)
[2019-05-19 07:15] LABS: Basophils # (auto) 0.02 K/uL (0-0.2); Basophils % (auto) 0.3 %; Eosinophils # (auto) 0.49 K/uL (0-0.5); Eosinophils % (auto) 6.8 %; Hematocrit (blood only) 35.3 % (37-47); Hemoglobin 11.4 g/dL (12.0-16.0); Immature Granulocytes # (auto) 0.02 K/uL (0.00-0.02); Immature Granulocytes % (auto) 0.3 %; Lymphocytes # (auto) 2.32 K/uL (1.2-3.4); Mean Corpuscular Hemoglobin 30.9 pg (25-34); Mean Corpuscular Hgb Conc 32.3 g/dL (32-36); Mean Corpuscular Volume 95.7 fL (80-100); Monocytes # (auto) 0.78 K/uL (0.11-0.59); Monocytes % (auto) 10.8 %; Neutrophils # (auto) 3.61 K/uL (1.4-6.5); Neutrophils % (auto) 49.8 %; Platelet Count 168 K/uL (130-400); RDW Standard Deviation 48.5 fL (36.4-46.3); Red Blood Count 3.69 M/uL (4.2-5.4); White Blood Count 7.24 K/uL (4.8-10.8)
[2019-05-19] MEDS: SODIUM CHLORIDE 0.9% 1000ML 1,000 ML IV SCH (08:31)
[2019-05-19] MEDS: CARVEDILOL 12.5 MG TAB PO SCH ×2 (08:35→20:35)
[2019-05-19] MEDS: OXYBUTYNIN CHLORIDE 5 MG TAB PO SCH (08:36)
[2019-05-19] MEDS: SACCHAROMYCES BOULARDII 250 MG CAP PO SCH (08:36)
[2019-05-19] MEDS: PANTOprazole 40 MG TAB PO SCH (08:36)
[2019-05-19] MEDS: ASCORBIC ACID 500 MG TAB PO SCH (08:37)
[2019-05-19] MEDS: LISINOPRIL 10 MG TAB PO SCH (08:38)
[2019-05-19] MEDS: LIDOCAINE 5% 1 PATCH TD SCH (08:40)
[2019-05-19] MEDS: DICLOFENAC SOD 1% GEL 100 GM TUBE EXT PRN (08:41)
[2019-05-19] MEDS: INSULIN ASPART 100 UNITS/ML 3 ML PEN SC SCH ×4 (08:49→20:39)
[2019-05-19 10:25] LABS: Albumin Level 2.5 gm/dl (3.4-5.0); BUN Creatinine Ratio 15.7 (10-20); Bilirubin Direct 0.1 mg/dl (0-0.2); Calcium 8.1 mg/dl (8.5-10.1); Creatinine Clr Calc Pharmacy 31.9 ml/min; Est GFR (Non-African American) 39.7; Magnesium 2.3 mg/dl (1.8-2.4); Potassium 3.8 mmol/L (3.5-5.1)
[2019-05-19 10:28] LABS: Bilirubin,Total 0.5 mg/dl (0.2-1); Total Protein 6.3 gm/dl (6.4-8.2)
[2019-05-19] MEDS: TRAMADOL HCL 50 MG TABLET PO PRN ×2 (11:14→21:52)
[2019-05-19] MEDS ORDERED: ALUMINUM/MAGNESIUM SUSP 18 ML, LIDOCAINE HCL VISCOUS 2% 6 ML, BARCODE IDENTIFIER 1 EA PO ONE (14:45)
[2019-05-19] MEDS: cephALEXin 500 MG CAP PO SCH ×2 (15:59→20:35)
--- NOTE | 2019-05-19 19:17 | Hospitalist Progress Note ---
Date of Service May 19, 2019 Assessment & Plan (1) Weakness: Patient presented with fall due to generalized weakness and dizziness. Possible UTI as well as multiple areas of chronic pain as well as abdominal pain contributing. No loss of consciousness. - PT/OT recommending SNF & patient not sure she can manage at home--> was agreeable to SNF placement at [facility] but no beds so now wants to go home with HH She is able to walk but due to pain in her back, she is unable to walk very far although improved today to 36 feet (2) Urinary tract infection: She presented with sepsis POA and urinary tract infection-had tachycardia and fever upon admission, mild leukocytosis which is now improved She had an E. coli UTI several days prior to admission and her UA was clear on admission (05/15); however, she has been on Macrobid for about 2 days which may have affected this. She presented with fever and subjective chills-could be acute pyelonephritis as Macrobid would not treat anything other than a simple cystitis. She does have some back pain-x-ray checked and negative for compression fracture Does have mildly elevated LFTs which are now improving, and epigastric pain- lipase is normal -Fevers have now resolved, dysuria is now resolved -received ceftriaxone for presumed UTI x 5 days, now convert to po keflex and finish out 7 day course - Follow blood cultures from 05/15 - No growth so far (3) Elevated troponin: No symptoms of chest discomfort or palpitations. EKG non-ischemic in atrially-paced rhythm. - Troponins were 0.144 & 0.155. This is most likely myocardial demand ischemia secondary to sepsis as above - Continue beta-niraj, statin, ACEi-she is not on aspirin as an outpatient - No further inpatient needs - Consider outpatient stress. (4) Diabetes: A1c was 6.3% in 03/2019. -Continue sliding scale insulin - Hold home oral meds (5) Hypertension: BP was low and now normal with IVF resuscitation - Continue home meds (6) CKD (chronic kidney disease) stage 3, GFR 30-59 ml/min: Baseline Cr is ~1.3-1.4, eGFR 35. At baseline on admission. Creatinine went up to 1.7 indicating acute kidney injury, now improved to 1.23 with IVFs Likely from poor p.o. intake and dehydration - Avoid nephrotoxins and renally dose meds. -dc IVFs (7) Heart disease: Follows with Drs. Otto and Munir for cardiomyopathy. Per outpatient notes, echo from 2012 showed the EF had normalized. - Continue beta-niraj, statin, ACEi - If any further cardiac concerns, will consult cardiology -Is not on aspirin presumably due to previous peptic ulcer disease (8) Hypothyroid: No signs/symptoms of hypo-/hyperthyroidism. - Continue home Synthroid 175 mcg (9) Presence of cardiac pacemaker: History of biventricular pacemaker/ICD placement for previous cardiomyopathy (10) Elevated LFTs: AST and alkaline phosphatase mildly elevated on admission and now continue to be improved/normal today except Alk phos mildly up to 171 Lipase is normal Does have some epigastric abdominal pain which is likely gastritis -is s/p cholecystectomy, had biliary stent placed and then removed in for choledocholithiasis with pancreatitis -abd pain persists despite LFTs normalizing, also with mid back pain - check CT Abd/pel--> shows wall thickening of CBD but no stones or distension, no other significant abnormalities (11) Epigastric abdominal pain: As above, likely gastritis Imaging fairly normal, LFTs improved -try GI cocktail and add on Zantac to Protonix (12) Back pain: 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, did have a fall where she slid down as her lowered to the ground and then she landed on her back several days prior to admission Thoracic spine x-ray without compression fractures CT a/p without any abnormalities noted of spine other than degenerative changes and old vertobroplasty -Continue pain management with acetaminophen as above -Continue Voltaren gel -continue lidocaine patch and tramadol prn which is helping (13) Diarrhea: With multiple nonbloody loose stools x 24 hours, now resolved with imodium C diff toxin negative, gene positive, indicates carrier state -continue loperamide prn -started probiotics -may be due to abx-associated diarrhea - CT abd/pel neg for cause -check stool cx-pending -hydrated (14) DVT prophylaxis: SCDs - Low DVT risk per admission calculator Disposition-continued stay for abd pain, and needs to be a little stronger before able to return home with family Hopeful for dc to home tomorrow Subjective Pt feels some upset "burning" in stomach but otherwise back pain is improved. Walked further with PT today in the halls. Not eating much because she doesn't like the food Family hesitant about her coming home today as she is still weak. [facility] has no beds for a week and she refuses to go anywhere else Review of Systems Review of Systems: All systems reviewed & are unremarkable except as noted in HPI & below Physical Exam Constitutional: WD/WN, vitals as above Eyes: + anicteric sclerae ENMT: external ear and nose normal, oropharynx normal Neck: trachea midline, no thyromegaly Respiratory: normal respiratory effort, lungs clear to auscultation Cardiovascular: RRR, no murmur, no edema Gastrointestinal (Abdomen): Inspection/Auscultation: abdomen normal to inspection and normal bowel sounds; abdomen not distended Percussion/Palpation: + abdomen tender (In the epigastric region without guarding or rebound tenderness) and abdomen soft; no guarding, abdomen not rigid, no hernia and no abdominal mass Musculoskeletal: Spine: + thoracic spinal tenderness (Over the mid thoracic spine, no step-offs); no paraspinal tenderness Extremities: extremities normal to inspection (No joint effusions); no cyanosis and no clubbing Skin: no rashes, warm and dry Neurologic: moves all extremities and awake; no focal motor deficits Psychiatric: A+Ox3, euthymic affect Results & Data Vital Signs (Past 12 Hours) Vital Signs Temp Pulse Resp BP Pulse Ox 05/19/19 15:44 36.8 C 63 18 99/62 L 96 Laboratory Results 05/19/19 05/19/19 05/19/19 Range/Units 20:38 16:35 12:00 Sodium (136-145) mmol/L Potassium (3.5-5.1) mmol/L Chloride (98-107) mmol/L Carbon Dioxide (21-32) mmol/L Anion Gap (3-11) BUN (7-18) mg/dl Creatinine (0.6-1.2) mg/dl Est Cr Clr Drug Dosing ml/min Est GFR ( Amer) Est GFR (Non-Af Amer) BUN/Creatinine Ratio (10-20) Glucose (70-99) mg/dl POC Glucose 104 H 101 H 111 H (70-99) Calcium (8.5-10.1) mg/dl Magnesium (1.8-2.4) mg/dl Total Bilirubin (0.2-1) mg/dl Direct Bilirubin (0-0.2) mg/dl AST (15-37) U/L ALT (12-78) U/L Alkaline Phosphatase (45-117) U/L Total Protein (6.4-8.2) gm/dl Albumin (3.4-5.0) gm/dl 05/19/19 05/19/19 Range/Units 09:42 07:53 Sodium 143 (136-145) mmol/L Potassium 3.8 (3.5-5.1) mmol/L Chloride 111 H (98-107) mmol/L Carbon Dioxide 28 (21-32) mmol/L Anion Gap 4.0 (3-11) BUN 19 H (7-18) mg/dl Creatinine 1.23 H (0.6-1.2) mg/dl Est Cr Clr Drug Dosing 31.9 ml/min Est GFR ( Amer) 46.0 Est GFR (Non-Af Amer) 39.7 BUN/Creatinine Ratio 15.7 (10-20) Glucose 108 H (70-99) mg/dl POC Glucose 101 H (70-99) Calcium 8.1 L (8.5-10.1) mg/dl Magnesium 2.3 (1.8-2.4) mg/dl Total Bilirubin 0.5 (0.2-1) mg/dl Direct Bilirubin 0.1 (0-0.2) mg/dl AST 33 (15-37) U/L ALT 32 (12-78) U/L Alkaline Phosphatase 171 H (45-117) U/L Total Protein 6.3 L (6.4-8.2) gm/dl Albumin 2.5 L (3.4-5.0) gm/dl PG Care Time/CCT Total # of Minutes Spent Total Time Spent with Patient: Total time spent is greater than 50% in coordination of care (as documented) at patient's floor/unit and/or counseling patient: (1) Urinary tract infection Hematuria presence: without hematuria Urinary tract infection type: site unspecified Qualified Code(s): N39.0 - Urinary tract infection, site not specified
[2019-05-19] MEDS: GABAPENTIN 600 MG TAB PO SCH (20:33)
[2019-05-19] MEDS: ATORVASTATIN 40 MG TAB PO SCH (20:34)
[2019-05-20] MEDS: DICLOFENAC SOD 1% GEL 100 GM TUBE EXT PRN (05:48)
[2019-05-20] MEDS: LEVOTHYROXINE SODIUM 175 MCG TABLET PO SCH (05:49)
[2019-05-20] MEDS: TRAMADOL HCL 50 MG TABLET PO PRN (07:17)
[2019-05-20] MEDS: OXYBUTYNIN CHLORIDE 5 MG TAB PO SCH (07:19)
[2019-05-20] MEDS: CARVEDILOL 12.5 MG TAB PO SCH (07:19)
[2019-05-20] MEDS: SACCHAROMYCES BOULARDII 250 MG CAP PO SCH (07:20)
[2019-05-20] MEDS: cephALEXin 500 MG CAP PO SCH (07:20)
[2019-05-20] MEDS: LIDOCAINE 5% 1 PATCH TD SCH (07:21)
[2019-05-20] MEDS: PANTOprazole 40 MG TAB PO SCH (07:21)
[2019-05-20] MEDS: ASCORBIC ACID 500 MG TAB PO SCH (07:22)
[2019-05-20] MEDS: LISINOPRIL 10 MG TAB PO SCH (07:22)
[2019-05-20] MEDS: INSULIN ASPART 100 UNITS/ML 3 ML PEN SC SCH ×2 (08:35→12:26)
[2019-05-20] MEDS ORDERED: MICONAZOLE NITRATE POWDER 43 GM EXT PRN (09:00)
--- NOTE | 2019-05-20 12:31 | Discharge Summary ---
Date of Service May 20, 2019 Admission HPI Per Admitting Provider 84yo F w/ hx of DM, HTN who presents with fever and slow fall at home. Per patient, she has been having abdominal pressure and polyuria for at least 2-3 weeks. She reports working with her PCP to treat it with an unknown antibiotic. She then had a recheck of her urine on 05/10 which showed continued infection for which she was started on Macrobid. She has been on that for about 1-2 days. Yesterday, she reports that her symptoms of abdominal pressure and polyuria continued. Overnight she reports subjective chills, asking her to put a third and fourth blanket on her which is unusual for her. Early in the morning she got up to use the restroom, became dizzy, and had to have her lowered her to the ground. She reports she may have struck her head as she went down to the ground; however, she denies any loss of consciousness whatsoever. She is brought to the emergency department for evaluation. In the emergency department she was noted to be tachycardic had a fever to 38.1. She denies any other focal infectious symptoms including cough, shortness of breath, sputum production, rash or redness anywhere on her skin, constipation or diarrhea, or cough or cold symptoms. She has not had any sick contacts that she is aware of. Principal Diagnosis Fall, back pain, UTI, acute on chronic abdominal and back pain Discharge Exam Constitutional WD/WN, vitals as above Eyes + anicteric sclerae Neck trachea midline, no thyromegaly Respiratory normal respiratory effort, lungs clear to auscultation Cardiovascular RRR, no murmur, no edema Gastrointestinal (Abdomen) Inspection/Auscultation: abdomen normal to inspection and normal bowel sounds; abdomen not distended Percussion/Palpation: + abdomen tender (Upon palpation anywhere, but not tender when distracted during testing) and abdomen soft; no guarding, abdomen not rigid, no hernia and no abdominal mass Musculoskeletal Spine: + thoracic spinal tenderness (Over the mid thoracic spine, no step-offs) Extremities: extremities normal to inspection (No joint effusions); no cyanosis and no clubbing Tender to light touch anywhere of her entire body tested today-all throughout all joints, extremities, back, abdomen, hands, etc., however not tender when distracted during testing Skin no rashes, warm and dry Neurologic moves all extremities and awake; no focal motor deficits Psychiatric Orientation: alert, oriented to person and cooperative Mood: + irritable mood Discharge Data Allergies Allergy/AdvReac Type Severity Reaction Status Date / Time celecoxib Allergy Severe SX OF Verified 05/15/19 08:56 STROKE, FACIAL NUMBNESS, UNABLE TO SPEAK fesoterodine [From Toviaz] Allergy Unknown Unknown Verified 05/15/19 12:27 solifenacin [From Vesicare] Allergy Unknown Unknown Verified 05/15/19 12:27 morphine AdvReac Intermediate Confusion Verified 05/15/19 08:56 ciprofloxacin AdvReac Mild UPSET Verified 05/15/19 12:27 STOMACH metronidazole AdvReac Mild N/V Verified 05/15/19 08:56 Cipro AdvReac Unknown UPSET Verified 02/17/17 12:03 STOMACH Consultations 05/15/19 10:10 ED Decision to Admit Stat 05/19/19 09:32 Consult Case Management - Discharge Planning Routine Ordered Studies 05/15/19 08:36 CT head/brain wo con Stat 05/18/19 14:14 CT abd pelvis oral and IV con Routine Thoracic spine x-ray series Chest x-ray Femur x-ray Knee x-ray Pelvis x-ray Hospital Course (1) Weakness: Patient presented with fall due to generalized weakness and dizziness. Possible UTI as well as multiple areas of chronic pain as well as abdominal pain contributing. No loss of consciousness. - PT/OT recommending SNF & patient not sure she can manage at home--> was agreeable to SNF placement at [facility] but no beds so now wants to go home with HH By the day of discharge, she was able to walk 100 feet without stopping with a walker with contact-guard assistance Recommending home with home health with close supervision by family (2) Urinary tract infection: She presented with sepsis POA and urinary tract infection-had tachycardia and fever upon admission, mild leukocytosis which is now improved She had an E. coli UTI several days prior to admission and her UA was clear on admission (05/15); however, she has been on Macrobid for about 2 days which may have affected this. She presented with fever and subjective chills-could be acute pyelonephritis as Macrobid would not treat anything other than a simple cystitis. She does have some back pain-x-ray checked and negative for compression fracture Does have mildly elevated LFTs which are now improving, and epigastric pain- lipase is normal -Fevers have now resolved, dysuria is now resolved -received ceftriaxone for presumed UTI x 5 days, now convert to po keflex and finish out 7 day course - Follow blood cultures from 05/15 - No growth so far (3) Elevated troponin: No symptoms of chest discomfort or palpitations. EKG non-ischemic in atrially-paced rhythm. - Troponins were 0.144 & 0.155. This is most likely myocardial demand ischemia secondary to sepsis as above - Continue beta-niraj, statin, ACEi-she is not on aspirin as an outpatient - No further inpatient needs - Consider outpatient stress. (4) Diabetes: A1c was 6.3% in 03/2019. Received sliding scale insulin during admission -Restart glipizide on discharge (5) Hypertension: BP was low and now normal with IVF resuscitation - Continue home meds (6) CKD (chronic kidney disease) stage 3, GFR 30-59 ml/min: Baseline Cr is ~1.3-1.4, eGFR 35. At baseline on admission. Creatinine went up to 1.7 indicating acute kidney injury, now improved to 1.23 with IVFs Likely from poor p.o. intake and dehydration - Avoid nephrotoxins and renally dose meds. (7) Heart disease: Follows with Drs. Otto and Munir for cardiomyopathy. Per outpatient notes, echo from 2012 showed the EF had normalized. - Continue beta-niraj, statin, ACEi - If any further cardiac concerns, will consult cardiology -Is not on aspirin presumably due to previous peptic ulcer disease (8) Hypothyroid: No signs/symptoms of hypo-/hyperthyroidism. - Continue home Synthroid 175 mcg (9) Presence of cardiac pacemaker: History of biventricular pacemaker/ICD placement for previous cardiomyopathy (10) Elevated LFTs: AST and alkaline phosphatase mildly elevated on admission and now continue to be improved/normal today except Alk phos mildly up to 171 Lipase is normal Does have some epigastric abdominal pain which is likely gastritis -is s/p cholecystectomy, had biliary stent placed and then removed in September/2018 for choledocholithiasis with pancreatitis -abd pain persists despite LFTs normalizing, also with mid back pain - checked CT Abd/pel--> shows wall thickening of CBD but no stones or distension, no other significant abnormalities -Continue to follow up as an outpatient with PCP-perhaps her alkaline phosphatase is elevated from a bony source? 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, did have a fall where she slid down as her lowered to the ground and then she landed on her back several days prior to admission Thoracic spine x-ray without compression fractures CT a/p without any abnormalities noted of spine other than degenerative changes and old vertobroplasty -Continue pain management with acetaminophen as above -Continue Voltaren gel -continue lidocaine patch and tramadol prn which is helping Of note, patient has diffuse pain anywhere that she is touched on her body- suspect she has fibromyalgia -She may benefit from a trial of Cymbalta or Lyrica or increasing the dose of her gabapentin if tolerated-defer to PCP (13) Diarrhea: With multiple nonbloody loose stools for a total of 24 hours, now resolved with 1 dose of Imodium C diff toxin negative, gene positive, indicates carrier state -continue loperamide prn -started probiotics -Likely be due to abx-associated diarrhea - CT abd/pel neg for cause -hydrated (14) DVT prophylaxis: SCDs Disposition-stable for discharge to return home with family and home health services Total Time Total Time Spent Total Time Spent (In Minutes): Greater than 30 minutes Total Time Includes: Examination of the Patient, Discharge Planning and Medication Reconciliation Discharge Plan Discharge Items Patient Disposition: Home - Home Health Services Reason For Visit: FALL, ELEVATED TROPONIN Discharge Diagnosis: UTI, Fall, acute on chronic back and abdominal pain Condition: Fair Discharge Goals: Decrease discomfort, Diagnostic testing, Improve disease control, Improve function, Increase independence, Learn about illness and Therapeutic intervention Activity: As commented below Lifting: Gradually increase as tolerated Bathing: No limitations Exercise/Sports: Gradually increase as tolerated Exercise Comment: with home PT/OT Weightbearing: Full weightbearing Non-emergency contact: Primary Care Provider Call non-emergency contact if: you have any medication questions, your symptoms worsen, your pain is not controlled, your pain is worsening, your pain is u nusual for you, your pain is concerning for you, you have a fever and your temperature is above 100.5 Follow-up/Referrals: Rome Castellanos MD [Primary Care Provider] - Diet: Heart Healthy Addtl Provider Instructions: You were admitted due to back pain from a fall and found to have a UTI. Please finish out 1 more day of the NEW antibiotic called Keflex. You were given a pain pill called tramadol to take as needed for severe pain. You were also given Protonix and Zantac for your stomach pains as this is likely due to inflammation of the stomach called gastritis. You had a CAT scan of the abdomen that did not show any significant abnormalities. Please follow-up with your primary care doctor as scheduled. Prescriptions: New acetaminophen [Mapap (acetaminophen)] 325 mg Tablet 650 mg PO Q4H PRN (Reason: pain) Qty: 30 RF: 0 cephalexin 500 mg Capsule 500 mg PO BID Qty: 3 RF: 0 diclofenac sodium [Voltaren] 1 % Gel 4 gm EXT TID PRN (Reason: Back and joint pain) Qty: 100 RF: 0 tramadol 50 mg Tablet 25 - 50 mg PO Q6H PRN (Reason: Severe pain) Qty: 20 RF: 0 ranitidine HCl 150 mg Tablet 150 mg PO BID Qty: 60 RF: 0 Continued ascorbic acid (vitamin C) 500 mg tablet 500 mg PO QAM RF: 0 gabapentin 300 mg capsule 600 mg PO HS Qty: 60 RF: 0 atorvastatin 40 mg Tablet 40 mg PO HS RF: 0 carvedilol 12.5 mg Tablet 12.5 mg PO BID RF: 0 cyanocobalamin (vitamin B-12) [Vitamin B-12] 1,000 mcg Tablet 1,000 mcg PO QAM RF: 0 lisinopril 10 mg Tablet 10 mg PO QAM RF: 0 oxybutynin chloride 5 mg Tablet 5 mg PO QAM RF: 0 glucosamine-chondroitin [Osteo Bi-Flex] 250-200 mg Tablet 1 tab PO QAM RF: 0 Centrum Silver 0.4-300-250 mg-mcg-mcg Tablet 1 tab PO QAM RF: 0 cholecalciferol (vitamin D3) [Vitamin D3] 2,000 unit Tablet 2,000 unit PO QAM RF: 0 Humalog U-100 Insulin 100 unit/mL Cartridge 1 sliding scale dose SUBCUT UD RF: 0 glipizide 5 mg tablet 5 mg PO QAM RF: 0 levothyroxine 175 mcg tablet 175 mcg PO QAM RF: 0 pantoprazole [Protonix] 40 mg Tablet,Delayed Release (Dr/Ec) 40 mg PO QAM Qty: 30 RF: 0 Discontinued nitrofurantoin monohyd/m-cryst [Macrobid] 100 mg capsule 100 mg PO BID Qty: 14 RF: 0 cyclobenzaprine 10 mg tablet 10 mg PO TID PRN (Reason: Pain) Qty: 30 RF: 0 Stand-Alone Forms: [facility] Discharge Orders: Discharge Order (Routine); Ordered 05/20/19 Ordered By: Carolyne Sorto Admission Data Admit Date/Time: 05/16/19 13:45 Attending Provider: Carolyne Sorto Admit Provider: Frank Park Primary Care Provider: Rome Castellanos Other Providers: Frank Park Service: Medical Other Pending Studies at Discharge: No
== END 2019-05-20 14:41 | disposition home health service (06) | DRG 872 ==
LOC: 2N 08:07 → ED 08:07 → 2N 11:35 → SUATTDRO 05-16 13:45 → 4W 05-17 22:24

== ENCOUNTER 2019-10-06 10:05 | Observation (INO) ==
[2019-10-06] MEDS: SODIUM CHLORIDE 0.9% 1000ML 1,000 ML IV SCH ×2 (10:54→17:30)
[2019-10-06 11:00] LABS: Basophils # (auto) 0.01 K/uL (0-0.2); Basophils % (auto) 0.1 %; Eosinophils # (auto) 0.16 K/uL (0-0.5); Eosinophils % (auto) 1.9 %; Hematocrit (blood only) 43.5 % (37-47); Hemoglobin 14.3 g/dL (12.0-16.0); Immature Granulocytes # (auto) 0.01 K/uL (0.00-0.02); Immature Granulocytes % (auto) 0.1 %; Lymphocytes # (auto) 2.27 K/uL (1.2-3.4); Lymphocytes % (auto) 26.7 %; Mean Corpuscular Hemoglobin 31.4 pg (25-34); Mean Corpuscular Hgb Conc 32.9 g/dL (32-36); Mean Corpuscular Volume 95.4 fL (80-100); Mean Platelet Volume 10.3 fL (7.4-10.4); Monocytes # (auto) 1.03 K/uL (0.11-0.59); Monocytes % (auto) 12.1 %; Neutrophils # (auto) 5.02 K/uL (1.4-6.5); Neutrophils % (auto) 59.1 %; Platelet Count 178 K/uL (130-400); RDW Coefficient of Variation 14.3 % (11.5-14.5); RDW Standard Deviation 49.9 fL (36.4-46.3); Red Blood Count 4.56 M/uL (4.2-5.4)
[2019-10-06 11:18] LABS: Influenza A virus by PCR Neg for Influ A (Neg); Influenza B virus by PCR Neg for Influ B (Neg)
[2019-10-06 11:23] LABS: Albumin Level 3.4 gm/dl (3.4-5.0); BUN Creatinine Ratio 18.5 (10-20); Calcium 9.1 mg/dl (8.5-10.1); Creatinine Clr Calc Pharmacy 26.9 ml/min; Est GFR (Non-African American) 33.6; Magnesium 2.3 mg/dl (1.8-2.4); Potassium 3.8 mmol/L (3.5-5.1)
[2019-10-06 11:29] LABS: Albumin Globulin Ratio 0.7 (0.9-2); Bilirubin,Total 0.9 mg/dl (0.2-1); Globulin 4.7 gm/dl (2.5-4.0); Total Protein 8.1 gm/dl (6.4-8.2); Troponin I 0.027 ng/ml (0-0.045)
[2019-10-06] MEDS ORDERED: IOVERSOL 100ml IV PRN (11:31)
--- NOTE | 2019-10-06 11:50 | Electrocardiogram Report ---
Test Reason : Blood Pressure : / mmHG Vent. Rate : 082 BPM Atrial Rate : 082 BPM P-R Int : 110 ms QRS Dur : 112 ms QT Int : 414 ms P-R-T Axes : 077 -06 102 degrees QTc Int : 483 ms Atrial-sensed ventricular-paced rhythm Biventricular pacemaker detected Abnormal ECG When compared with ECG of 01-OCT-2019 14:40, Vent. rate has increased BY 19 BPM Confirmed by Silas Otto ([id number]) on 10/06/2019 11:49:40 AM Referred By: Janelle Del Valle Confirmed By:Silas Otto
--- NOTE | 2019-10-06 11:57 | CT Scan Report ---
CT SCAN OF THE CHEST WITH IV CONTRAST CLINICAL HISTORY: Cough and dyspnea. COMPARISON STUDY: Chest CT scans dated 10/01/2019 and 09/17/2010. TECHNIQUE: Following the IV administration of 94 cc of Optiray 320, CT scan of the thorax was perform ed from the thoracic inlet to the upper abdomen. Images are reviewed in the axial, sagittal, and gela nal planes. IV contrast was administered without complication. A dose lowering technique was utilize d adhering to the principles of ALARA. The examination is degraded by motion artifact, as well as by streak artifact from the arms which could not be elevated above the chest. CT DOSE: 617.79 mGy.cm FINDINGS: Thyroid: Atrophic versus surgically absent. Thoracic aorta: There is atherosclerotic calcification of the thoracic aorta, which is normal in chiquita gadiel and demonstrates standard 3-vessel arch anatomy. No dissection is seen. Pulmonary vasculature: The pulmonary trunk is normal in caliber. There are no filling defects identif ied in the central pulmonary vessels to indicate pulmonary embolus. Note that this examination was no t protocoled for evaluation of the pulmonary arteries. Heart: A cardiac AICD is present in the left chest wall. The heart is enlarged and there is a small p ericardial effusion. Lungs and pleural spaces: Evaluation of the lung parenchyma is modestly degraded by motion artifact. There are mild dependent airspace opacities at the left lung base. Intraluminal secretions are noted in the left lower lobe bronchi and there is associated peribronchial thickening. No pleural effusion or pneumothorax is seen. Minimal secretions are noted in the trachea. Scarring/atelectasis is seen at the lung bases. Mediastinum: There are numerous mildly enlarged mediastinal lymph nodes. The largest node is in the p recarinal region measures 1.8 cm in short axis. Kaur: A mildly enlarged left hilar node measures 1.1 cm short axis. No right hilar adenopathy is seen . Axillae: There is no axillary lymphadenopathy. Upper abdomen: The gallbladder is surgically absent. There is mild intrahepatic biliary ductal dilata tion and pneumobilia. A small to moderate hiatal hernia is noted. A 1.0 cm cystic lesion is again see n within the pancreatic body on image #27. 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 Diffuse peripher al calcification of the pancreas suggests chronic pancreatitis. Skeletal structures: The skeletal structures are heterogeneously osteopenic. There is a chronic compr ession deformity of T12 with evidence of previous vertebroplasty. No lytic or blastic bony lesions ar e seen. Spondylotic changes noted in the thoracic spine. Advanced degenerative change is present in t he shoulders. There are numerous calcified joint bodies bilaterally as well as bursal fluid. There is a subacute/healing fracture of the left lateral ninth rib. No acute fracture is seen. There are nume neela healed bilateral rib fractures. IMPRESSION: 1. There are mild dependent airspace opacities at the left lung base with associated peribronchial th ickening and intraluminal secretions/debris in the left lower lobe. This could represent atelectasis versus developing pneumonia or aspiration pneumonitis. Clinical correlation will be required. 2. There is a subacute/healing left lateral 9th rib fracture. 3. Cardiomegaly and AICD. 4. Mildly enlarged mediastinal and left hilar lymph nodes are similar to previous. 5. Additional chronic findings as above. ACT 112: Positive. There are findings on this exam that require communication between the performing entity and the patient following Patient Test Result Information Act ([place] Act 112) guidelines. Electronically signed by: Michael Scherer M.D. 10/06/2019 11:56 AM
[2019-10-06] MEDS ORDERED: cefTRIAXone SODIUM 1,000 MG/50 ML BAG IV STA (12:25)
[2019-10-06] MEDS ORDERED: AZITHROMYCIN 250 MG TAB PO ONE (12:25)
[2019-10-06] MEDS ORDERED: ALBUT/IPRATROP 3MG/0.5MG NEB 3 ML VIAL NEB STA (12:25)
--- NOTE | 2019-10-06 13:20 | History & Physical Report ---
Date of Service October 06, 2019 Assessment & Plan (1) Pneumonia: Community acquired pneumonia CURB 65 - 2, in setting of recent rib fracture Given site will consult SLT and start on a soft bite sized diet Sputum culture if possible. (2) Cardiac defibrillator in place: Prior cardiac arrest > 10 years ago ?2003. Wishes defibrillator left on but not for CPR. Resolved cardiomyopathy. (3) Dehydration: Elevated BUN. Will continue NSS given in ER but after this given history (4) Diabetes: HbA1C 6.3 in February. Repeat in AM Hold glipizide Insulin correction factor, no carb coverage. BSG ACHS. (5) Urge incontinence of urine: Continue oxybutynin (6) Hypothyroid: Last TSH 0.136 in August , levothyroxine reduced from 175 to 150 at that time. Repeat labs in AM. 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 Suspect this can just be watched, recommend correlating with prior imaging. (8) DVT prophylaxis: Heparin 5000 units Q12H SQ (9) Discharge planning issues: PT/OT, likely to need rehab facility History of Present Illness Chief Complaint: Shortness of breath Primary Care Provider: Adriano Castellanos MD Katty Reynolds is an 84 year old female who presents to the ER with generalized fatigue, cough with green sputum, decreased appetite, shortness of breath and wheezing. Highest fever 101.1 today. Symptoms have come on over the last 3 days. She was in the ER recently on with a fall (mechanical with chair slipping out underneath her) and subsequent left 9th rib fracture. She went to see her PCP and recommended coming to the ER for evaluation as she did not feel the patient was safe to return home which I completely agree. Patient denies any chest pain, palpitations, claudication. She denies any swallowing difficulties or coughing/choking after eating just her appetite has severely decreased. ER workup included CT chest re-demonstrated subacute 9th rib fracture from last admission with new mild dependant airspace opacities in left lung base which could represent atelectasis versus developing pneumonia or aspiration pneumonitis. She was given a duoneb however this did not help at all. Never had prior inhalers, no previous wheezing to this episode. Allergies Allergy/AdvReac Type Severity Reaction Status Date / Time celecoxib Allergy Severe SX OF Verified 10/06/19 11:18 STROKE, FACIAL NUMBNESS, UNABLE TO SPEAK fesoterodine [From Toviaz] Allergy Unknown Unknown Verified 10/06/19 11:18 solifenacin [From Vesicare] Allergy Unknown Unknown Verified 10/06/19 11:18 morphine AdvReac Intermediate Confusion Verified 10/06/19 11:18 ciprofloxacin AdvReac Mild UPSET Verified 10/06/19 11:18 STOMACH metronidazole AdvReac Mild N/V Verified 10/06/19 11:18 Cipro AdvReac Unknown UPSET Verified 02/17/17 12:03 STOMACH Home Medications Home Medications Medication Instructions Recorded Confirmed Type atorvastatin 40 mg PO HS 08/05/18 10/06/19 History cholecalciferol (vitamin D3) 2,000 unit PO QAM 08/05/18 10/06/19 History [Vitamin D3] cyanocobalamin (vitamin B-12) 1,000 mcg PO QAM 08/05/18 10/06/19 History [Vitamin B-12] ascorbic acid (vitamin C) 500 mg 500 mg PO QAM tab 02/26/19 10/06/19 History tablet glipizide 5 mg PO QAM 05/15/19 10/06/19 History blood sugar diagnostic #10 ea 05/26/19 10/06/19 History lancets #50 ea 05/26/19 10/06/19 History lisinopril 10 mg tablet 10 mg PO QAM #90 tab 07/16/19 10/06/19 Rx oxybutynin chloride 5 mg 5 mg PO HS #30 tab 08/31/19 10/06/19 Rx tablet,extended release 24 hr levothyroxine 150 mcg tablet 150 mcg PO QAM 09/01/19 10/06/19 History tramadol 50 mg PO Q8H PRN #12 tab 10/01/19 10/06/19 Rx Past Med/Surg History Medical History Anemia (Acute) Cardiac defibrillator in place (Acute) Cardiomyopathy (Acute) Carotid artery stenosis (Acute) Chronic pancreatitis CKD (chronic kidney disease) stage 3, GFR 30-59 ml/min (Chronic) Degenerative joint disease (DJD) of hip (Acute) Diabetes mellitus, type 2 Diabetic nephropathy (Acute) Diabetic peripheral neuropathy (Acute) Diverticulitis Diverticulosis of colon (Acute) Duodenal ulcer GERD (gastroesophageal reflux disease) (Chronic) GERD without esophagitis (Acute) HLD (hyperlipidemia) (Chronic) Hypercholesterolemia (Acute) Hypothyroid (Chronic) IBS (irritable bowel syndrome) (Acute) Insomnia (Acute) Lumbar canal stenosis (Acute) Lumbar spondylosis (Acute) Nocturia (Acute) Nonischemic cardiomyopathy Osteoarthritis (Acute) Osteoporosis Presence of cardiac pacemaker (Acute) Pulmonary nodule (Acute) Rib fracture 09/17/18 R/T FALL. D/C'D TO [facility]. Scaphoid fracture of wrist Urge incontinence of urine (Acute) Vitamin D deficiency, unspecified (Acute) Surgical History History of cardiac cath PER PT, 5-10 YEARS AGO AT [facility] - REASON? - NO STENTS/ANGIOPLASTY History of cholecystectomy (Resolved) History of colonoscopy History of ERCP w/ sphincterotomy & CBD stent History of esophagogastroduodenoscopy (EGD) History of vertebroplasty T12 S/P appendectomy S/P hysterectomy S/P ICD (internal cardiac defibrillator) procedure Biventricular AICD placed in 2007 S/P kyphoplasty (Inactive) S/P partial colectomy S/P rotator cuff surgery Family History Son Family history of diabetes mellitus Unknown Breast cancer Sister Breast cancer Social History Preferred Language: Italian Communication Ability: Effective Visual Impairment: No Limitations Healthcare Science Specialist Required: No Beliefs That Will Affect Care: None marital status: Current Living Situation: Spouse Other Information That Helps Us Care for You: No Feels Safe at Home: Yes Safety Concerns: Feels Safe At This Time Smoking Status: Never smoker Second Hand Exposure: No ; Hx Alcohol Use: No Hx Substance Use: No Review of Systems Review of Systems: All systems reviewed & are unremarkable except as noted in HPI & below Physical Exam Constitutional: well developed and well nourished; no acute distress Eyes: PERRL, conjunctivae normal, anicteric sclerae ENMT: external ear and nose normal, oropharynx normal Neck: trachea midline, no thyromegaly Respiratory: normal respiratory effort; no respiratory distress, no labored breathing and does not use accessory muscles Auscultation: + crackles (left sided) and + wheezes (mild end expiratory); no diminished lung sounds and no rhonchi Cardiovascular: RRR, no murmur, no edema Gastrointestinal (Abdomen): normal bowel sounds, soft, nontender, no hepatosplenomegaly Musculoskeletal: no cyanosis or clubbing, extremities motor strength 5/5 Skin: no rashes, warm and dry Neurologic: moves all extremities and awake; no focal motor deficits and not confused Speech / Cognition: normal speech Motor/Sensory: no tremor, no pronator drift and no sensory deficit Psychiatric: A+Ox3, euthymic affect Lymphatic: no cervical or axillary lymphadenopathy Results & Data Vital Signs (Past 12 Hours) Vital Signs Temp Pulse Pulse Resp BP BP Pulse Ox 10/06/19 12:57 86 20 94 10/06/19 12:05 83 15 94 10/06/19 11:44 78 17 154/93 H 94 10/06/19 11:43 78 17 10/06/19 11:00 85 16 96 10/06/19 10:37 83 20 93 10/06/19 10:30 82 22 94 10/06/19 10:28 81 24 148/100 H 93 10/06/19 10:27 89 17 93 10/06/19 10:25 89 22 148/100 H 95 10/06/19 10:09 36.6 C 86 18 137/88 90 Laboratory Results WBC 8.5 Cr 1.41 (baseline around 1.2-1.4) Diagnostic Findings CT Chest: IMPRESSION: 1. There are mild dependent airspace opacities at the left lung base with associated peribronchial thickening and intraluminal secretions/debris in the left lower lobe. This could represent atelectasis versus developing pneumonia or aspiration pneumonitis. Clinical correlation will be required. 2. There is a subacute/healing left lateral 9th rib fracture. 3. Cardiomegaly and AICD. 4. Mildly enlarged mediastinal and left hilar lymph nodes are similar to previous. 5. Additional chronic findings as above. Medications Administered Ceftriaxone + Azithromycin ECG Additional Comments: Atrial sensed, ventricular-paced rhythm, Biventricular pacemaker. RR 82 bpm. Qtc 483 ms. Code Status & VTE Plan Code Status DNR/DNI VTE Prophylaxis Plan VTE Prophylaxis will be ordered: Yes PG Care Time/CCT Total # of Minutes Spent Total Time Spent with Patient: Total time spent is greater than 50% in coordination of care (as documented) at patient's floor/unit and/or counseling patient: (1) Diabetes Diabetes mellitus type: type 2 Diabetes mellitus superintendent container terminal insulin use: without assisted use Diabetes mellitus complication status: without complication Qualified Code(s): E11.9 - Type 2 diabetes mellitus without complications (2) Pneumonia Laterality: left Lung location: lower lobe of lung Pneumonia type: due to unspecified organism Qualified Code(s): J18.9 - Pneumonia, unspecified organism (3) Hypothyroid Hypothyroidism type: unspecified Qualified Code(s): E03.9 - Hypothyroidism, unspecified
[2019-10-06] MEDS ORDERED: DEXTROSE 50% 50 ML SYRINGE IV PRN (14:50)
[2019-10-06] MEDS ORDERED: GLUCOSE 10 TABS/TUBE PO PRN (14:50)
[2019-10-06] MEDS ORDERED: CARBOHYDRATES FOR HYPOGLYCEMIA PO PRN (14:50)
[2019-10-06] MEDS ORDERED: GLUCOSE 40% GEL 15 GM TUBE PO PRN (14:50)
[2019-10-06] MEDS ORDERED: TRAMADOL HCL 50 MG TABLET PO PRN (14:50)
[2019-10-06] MEDS ORDERED: GLUCAGON FOR INJ 1 MG VIAL SQ PRN (14:50)
[2019-10-06] MEDS: INSULIN ASPART 100 UNITS/ML 3 ML PEN SC SCH ×2 (17:25→20:56)
[2019-10-06] MEDS: LACTATED RINGER'S 1,000 ML IV SCH (18:08)
[2019-10-06] MEDS: HEPARIN SOD 5,000 UNIT/0.5 ML VIAL SQ SCH (20:50)
[2019-10-06] MEDS: OXYBUTYNIN CHLORIDE XL 5 MG TABCR PO SCH (20:50)
[2019-10-06] MEDS: ATORVASTATIN 40 MG TAB PO SCH (20:50)
[2019-10-06] MEDS: GUAIFENESIN/CODEINE 100MG/10MG 5ML UDC PO PRN (23:53)
[2019-10-07 06:27] LABS: Basophils # (auto) 0.02 K/uL (0-0.2); Basophils % (auto) 0.2 %; Eosinophils # (auto) 0.63 K/uL (0-0.5); Eosinophils % (auto) 7.1 %; Hematocrit (blood only) 39.5 % (37-47); Immature Granulocytes # (auto) 0.01 K/uL (0.00-0.02); Immature Granulocytes % (auto) 0.1 %; Lymphocytes # (auto) 3.61 K/uL (1.2-3.4); Lymphocytes % (auto) 40.7 %; Mean Corpuscular Hemoglobin 31.5 pg (25-34); Mean Corpuscular Hgb Conc 32.9 g/dL (32-36); Mean Corpuscular Volume 95.6 fL (80-100); Mean Platelet Volume 10.7 fL (7.4-10.4); Monocytes # (auto) 1.29 K/uL (0.11-0.59); Monocytes % (auto) 14.5 %; Neutrophils # (auto) 3.31 K/uL (1.4-6.5); Neutrophils % (auto) 37.4 %; Platelet Count 176 K/uL (130-400); RDW Coefficient of Variation 14.3 % (11.5-14.5); RDW Standard Deviation 49.9 fL (36.4-46.3); Red Blood Count 4.13 M/uL (4.2-5.4); White Blood Count 8.87 K/uL (4.8-10.8)
[2019-10-07] MEDS: LACTATED RINGER'S 1,000 ML IV SCH (06:29)
[2019-10-07] MEDS: LEVOTHYROXINE SODIUM 150 MCG TABLET PO SCH (06:30)
[2019-10-07 07:06] LABS: Albumin Level 2.9 gm/dl (3.4-5.0); BUN Creatinine Ratio 20.3 (10-20); Calcium 8.8 mg/dl (8.5-10.1); Creatinine Clr Calc Pharmacy 32.2 ml/min; Est GFR (African American) 49.4; Est GFR (Non-African American) 42.6; Potassium 3.6 mmol/L (3.5-5.1)
[2019-10-07 07:09] LABS: Estimated Average Glucose 131 mg/dl; Hemoglobin A1C 6.2 % (4.5-5.6)
[2019-10-07 07:12] LABS: Albumin Globulin Ratio 0.7 (0.9-2); Bilirubin,Total 0.7 mg/dl (0.2-1); Thyroid Stimulating Hormone 1.29 uIu/ml (0.300-4.500); Total Protein 6.9 gm/dl (6.4-8.2)
[2019-10-07] MEDS: INSULIN ASPART 100 UNITS/ML 3 ML PEN SC SCH ×4 (09:39→20:17)
[2019-10-07] MEDS: HEPARIN SOD 5,000 UNIT/0.5 ML VIAL SQ SCH ×2 (09:41→20:16)
[2019-10-07] MEDS: CYANOCOBALAMIN 500 MCG TABLET (VITAMIN B-12) PO SCH (09:42)
[2019-10-07] MEDS: lisinopriL 10 MG TAB PO SCH (09:42)
[2019-10-07] MEDS: AZITHROMYCIN 250 MG TAB PO SCH (09:42)
[2019-10-07] MEDS: CHOLECALCIFEROL 1,000 UNITS 25 MCG TAB PO SCH (09:42)
[2019-10-07] MEDS: cefTRIAXone SODIUM 1,000 MG/50 ML BAG IV SCH (11:41)
[2019-10-07] MEDS: ONDANSETRON INJ 2 MG/ML 2 ML VIAL IV PRN (12:28)
--- NOTE | 2019-10-07 12:35 | Hospitalist Progress Note ---
Date of Service October 07, 2019 Assessment & Plan (1) Pneumonia: Presented with fever at home, productive cough, malaise, with LLL infilatrate on CXR Community acquired pneumonia CURB 65 - 2, in setting of recent rib fracture No fevers here, no leukocytosis, no significant hypoxia -continue ceftriaxone and azithro -continue IS, pain control for rib fracture -continue flutter valve -add albuterol nebs for mild diffuse wheezing (2) Closed rib fracture: secondary to fall recently at home tramadol making her nauseated -dc tramadol -start lidocaine patch to ribs -add tylenol 1000mg po q8h scheduled (3) Cardiac defibrillator in place: Prior cardiac arrest > 10 years ago ?2003. Wishes defibrillator left on but not for CPR. Resolved cardiomyopathy. (4) Dehydration: Elevated BUN on admission secondary to dehydration from fever, pneumonia -received NSS --> dc IVFs now Encouraged po intake (5) Diabetes: HbA1C well controlled at 6.2% Hold glipizide while inpatient and not taking much po Insulin correction factor, no carb coverage. BSG ACHS. (6) Urge incontinence of urine: Continue oxybutynin (7) Hypothyroid: Last TSH 0.136 in August , levothyroxine reduced from 175 to 150 at that time. 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 Suspect this can just be watched, recommend correlating with prior imaging. 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 Had a tramadol this AM and now feeling very nauseated, not eating. No BM since prior to admission. Reports she was suing her IS at home but was not ambulating much at all. Tele with paced rhythm, rates 70-80s Review of Systems Review of Systems: All systems reviewed & are unremarkable except as noted in HPI & below Physical Exam Constitutional: WD/WN, vitals as above Eyes: + anicteric sclerae Neck: trachea midline, no thyromegaly Respiratory: normal respiratory effort; no labored breathing Auscultation: + crackles (left base) and + rhonchi (left base and middle lung field) Cardiovascular: RRR, no murmur, no edema Chest (Breasts): Chest: normal inspection of chest Additional Comments: +TTP over left ribs anterolaterally Gastrointestinal (Abdomen): normal bowel sounds, soft, nontender, no hepatosplenomegaly Musculoskeletal: Extremities: extremities normal to inspection; no cyanosis and no clubbing Skin: no rashes, warm and dry Neurologic: moves all extremities and awake; no focal motor deficits Psychiatric: A+Ox3, euthymic affect Lymphatic: no lymphedema Results & Data Vital Signs (Past 12 Hours) Vital Signs Temp Pulse Pulse Resp BP BP Pulse Ox 10/07/19 11:55 36.6 C 73 18 161/93 H 90 10/07/19 07:18 72 10/07/19 07:00 37.1 C 79 20 178/85 H 93 10/07/19 03:27 36.9 C 76 20 172/71 H 90 10/07/19 01:46 79 Laboratory Results 10/07/19 10/07/19 10/07/19 Range/Units 11:41 07:43 05:45 WBC (4.8-10.8) K/uL RBC (4.2-5.4) M/uL Hgb (12.0-16.0) g/dL Hct (37-47) % MCV (80-100) fL MCH (25-34) pg MCHC (32-36) g/dL RDW Std Deviation (36.4-46.3) fL RDW Coeff of Radha (11.5-14.5) % Plt Count (130-400) K/uL MPV (7.4-10.4) fL Immature Gran % (Auto) % Neut % (Auto) % Lymph % (Auto) % [place] % (Auto) % Eos % (Auto) % Baso % (Auto) % Immature Gran # (Auto) (0.00-0.02) K/uL Neut # (Auto) (1.4-6.5) K/uL Lymph # (Auto) (1.2-3.4) K/uL [place] # (Auto) (0.11-0.59) K/uL Eos # (Auto) (0-0.5) K/uL Baso # (Auto) (0-0.2) K/uL Sodium 140 (136-145) mmol/L Potassium 3.6 (3.5-5.1) mmol/L Chloride 108 H (98-107) mmol/L Carbon Dioxide 27 (21-32) mmol/L Anion Gap 5.0 (3-11) BUN 24 H (7-18) mg/dl Creatinine 1.16 (0.6-1.2) mg/dl Est Cr Clr Drug Dosing 32.2 ml/min Est GFR ( Amer) 49.4 Est GFR (Non-Af Amer) 42.6 BUN/Creatinine Ratio 20.3 H (10-20) Glucose 86 (70-99) mg/dl POC Glucose 109 H 90 (70-99) mg/dl Estimat Average Glucose mg/dl Hemoglobin A1c (4.5-5.6) % Calcium 8.8 (8.5-10.1) mg/dl Total Bilirubin 0.7 (0.2-1) mg/dl AST 30 (15-37) U/L ALT 17 (12-78) U/L Alkaline Phosphatase 78 (45-117) U/L Total Protein 6.9 (6.4-8.2) gm/dl Albumin 2.9 L (3.4-5.0) gm/dl Globulin 4.0 (2.5-4.0) gm/dl Albumin/Globulin Ratio 0.7 L (0.9-2) TSH 1.290 (0.300-4.500) uIu/ml Specimen Hemolysis 10/07/19 10/07/19 10/06/19 Range/Units 05:45 05:45 20:04 WBC 8.87 (4.8-10.8) K/uL RBC 4.13 L (4.2-5.4) M/uL Hgb 13.0 (12.0-16.0) g/dL Hct 39.5 (37-47) % MCV 95.6 (80-100) fL MCH 31.5 (25-34) pg MCHC 32.9 (32-36) g/dL RDW Std Deviation 49.9 H (36.4-46.3) fL RDW Coeff of Radha 14.3 (11.5-14.5) % Plt Count 176 (130-400) K/uL MPV 10.7 H (7.4-10.4) fL Immature Gran % (Auto) 0.1 % Neut % (Auto) 37.4 % Lymph % (Auto) 40.7 % [place] % (Auto) 14.5 % Eos % (Auto) 7.1 % Baso % (Auto) 0.2 % Immature Gran # (Auto) 0.01 (0.00-0.02) K/uL Neut # (Auto) 3.31 (1.4-6.5) K/uL Lymph # (Auto) 3.61 H (1.2-3.4) K/uL [place] # (Auto) 1.29 H (0.11-0.59) K/uL Eos # (Auto) 0.63 H (0-0.5) K/uL Baso # (Auto) 0.02 (0-0.2) K/uL Sodium (136-145) mmol/L Potassium (3.5-5.1) mmol/L Chloride (98-107) mmol/L Carbon Dioxide (21-32) mmol/L Anion Gap (3-11) BUN (7-18) mg/dl Creatinine (0.6-1.2) mg/dl Est Cr Clr Drug Dosing ml/min Est GFR ( Amer) Est GFR (Non-Af Amer) BUN/Creatinine Ratio (10-20) Glucose (70-99) mg/dl POC Glucose 113 H (70-99) mg/dl Estimat Average Glucose 131 mg/dl Hemoglobin A1c 6.2 H (4.5-5.6) % Calcium (8.5-10.1) mg/dl Total Bilirubin (0.2-1) mg/dl AST (15-37) U/L ALT (12-78) U/L Alkaline Phosphatase (45-117) U/L Total Protein (6.4-8.2) gm/dl Albumin (3.4-5.0) gm/dl Globulin (2.5-4.0) gm/dl Albumin/Globulin Ratio (0.9-2) TSH (0.300-4.500) uIu/ml Specimen Hemolysis 10/06/19 Range/Units 16:27 WBC (4.8-10.8) K/uL RBC (4.2-5.4) M/uL Hgb (12.0-16.0) g/dL Hct (37-47) % MCV (80-100) fL MCH (25-34) pg MCHC (32-36) g/dL RDW Std Deviation (36.4-46.3) fL RDW Coeff of Radha (11.5-14.5) % Plt Count (130-400) K/uL MPV (7.4-10.4) fL Immature Gran % (Auto) % Neut % (Auto) % Lymph % (Auto) % [place] % (Auto) % Eos % (Auto) % Baso % (Auto) % Immature Gran # (Auto) (0.00-0.02) K/uL Neut # (Auto) (1.4-6.5) K/uL Lymph # (Auto) (1.2-3.4) K/uL [place] # (Auto) (0.11-0.59) K/uL Eos # (Auto) (0-0.5) K/uL Baso # (Auto) (0-0.2) K/uL Sodium (136-145) mmol/L Potassium (3.5-5.1) mmol/L Chloride (98-107) mmol/L Carbon Dioxide (21-32) mmol/L Anion Gap (3-11) BUN (7-18) mg/dl Creatinine (0.6-1.2) mg/dl Est Cr Clr Drug Dosing ml/min Est GFR ( Amer) Est GFR (Non-Af Amer) BUN/Creatinine Ratio (10-20) Glucose (70-99) mg/dl POC Glucose 107 H (70-99) mg/dl Estimat Average Glucose mg/dl Hemoglobin A1c (4.5-5.6) % Calcium (8.5-10.1) mg/dl Total Bilirubin (0.2-1) mg/dl AST (15-37) U/L ALT (12-78) U/L Alkaline Phosphatase (45-117) U/L Total Protein (6.4-8.2) gm/dl Albumin (3.4-5.0) gm/dl Globulin (2.5-4.0) gm/dl Albumin/Globulin Ratio (0.9-2) TSH (0.300-4.500) uIu/ml Specimen Hemolysis PG Care Time/CCT Total # of Minutes Spent Total Time Spent with Patient: Total time spent is greater than 50% in coordination of care (as documented) at patient's floor/unit and/or counseling patient: (1) Pneumonia Laterality: left Lung location: lower lobe of lung Pneumonia type: due to unspecified organism Qualified Code(s): J18.9 - Pneumonia, unspecified organism (2) Diabetes Diabetes mellitus type: type 2 Diabetes mellitus terminal gauger insulin use: without care home use Diabetes mellitus complication status: without complication Qualified Code(s): E11.9 - Type 2 diabetes mellitus without complications (3) Hypothyroid Hypothyroidism type: unspecified Qualified Code(s): E03.9 - Hypothyroidism, unspecified (4) Closed rib fracture Encounter type: initial encounter Laterality: left Rib fracture type: single rib Qualified Code(s): S22.32XA - Fracture of one rib, left side, initial encounter for closed fracture
[2019-10-07] MEDS: LIDOCAINE 5% 1 PATCH TD SCH (12:46)
[2019-10-07] MEDS: ALBUTEROL 0.083% NEBU SOLN 3 ML VIAL NEB SCH ×2 (13:30→19:06)
[2019-10-07] MEDS: ACETAMINOPHEN 500 MG TAB PO SCH ×2 (14:07→21:42)
--- NOTE | 2019-10-07 16:57 | Emergency Department Note ---
Entered by Angel Brower acting as a scribe for History of Present Illness General Chief complaint: Flu Like Symptoms Stated complaint: POSSIBLE PNEUMONIA SENT BY DR Salas Seen by Provider: 10/06/19 10:14 Source: patient and family (daughter) Limitations: no limitations History of Present Illness Onset (ago): day(s) (couple days) Location: chest Radiation: abdomen Pain Consistency: + constant Maximum Pain Intensity: 9 Quality: + constant Associated symptoms: + denies other symptoms (sore throat, trouble with bowel mo vements), + cough, + fever/chills (fever), + loss of appetite, + nausea/vomiting (nausea, no vomiting), + weakness and + other (wheezing) The patient is a 84 year old female who presents to the Emergency Room with complaints of constant flu-like symptoms starting a couple days ago. The patient's daughter notes the patient fell about a week ago and came to the ED 5 days ago. The daughter states the patient had a left-sided rib fracture. The daughter notes the patient went to her PCP and the patient was told she has pneumonia. The daughter states the patient has been weak and has been wheezing. The daughter states the patient has been coughing and has been having trouble breathing. The daughter states the patient has not eaten much in the last few days but notes the patient drank Ensure yesterday. The patient states both of her arms are sore from holding herself up due to weakness. She states she has been bringing up green sputum with her cough. No hemoptysis. The daughter states the patient has had a fever but notes it has been going down. The patient states she has left-sided abdominal pain. The patient states she has been n auseous. The patient denies vomiting, sore throat, trouble with bowel movements, and smoking. The patient states she got the flu shot. 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 The patient states she does not know when her last ECHO was. No recent travel or other change in medications. Home Medications Home Medications Medication Instructions Recorded Confirmed Type atorvastatin 40 mg PO HS 08/05/18 10/06/19 History cholecalciferol (vitamin D3) 2,000 unit PO QAM 08/05/18 10/06/19 History [Vitamin D3] cyanocobalamin (vitamin B-12) 1,000 mcg PO QAM 08/05/18 10/06/19 History [Vitamin B-12] ascorbic acid (vitamin C) 500 mg 500 mg PO QAM tab 02/26/19 10/06/19 History tablet glipizide 5 mg PO QAM 05/15/19 10/06/19 History blood sugar diagnostic #10 ea 05/26/19 10/06/19 History lancets #50 ea 05/26/19 10/06/19 History lisinopril 10 mg tablet 10 mg PO QAM #90 tab 07/16/19 10/06/19 Rx oxybutynin chloride 5 mg 5 mg PO HS #30 tab 08/31/19 10/06/19 Rx tablet,extended release 24 hr levothyroxine 150 mcg tablet 150 mcg PO QAM 09/01/19 10/06/19 History tramadol 50 mg PO Q8H PRN #12 tab 10/01/19 10/06/19 Rx Allergies Allergy/AdvReac Type Severity Reaction Status Date / Time celecoxib Allergy Severe SX OF Verified 10/06/19 11:18 STROKE, FACIAL NUMBNESS, UNABLE TO SPEAK fesoterodine [From Toviaz] Allergy Unknown Unknown Verified 10/06/19 11:18 solifenacin [From Vesicare] Allergy Unknown Unknown Verified 10/06/19 11:18 morphine AdvReac Intermediate Confusion Verified 10/06/19 11:18 ciprofloxacin AdvReac Mild UPSET Verified 10/06/19 11:18 STOMACH metronidazole AdvReac Mild N/V Verified 10/06/19 11:18 Cipro AdvReac Unknown UPSET Verified 02/17/17 12:03 STOMACH Past Med/Surg History Medical History (Updated 10/07/19 @ 13:02 by Carolyne Sorto MD) Anemia (Acute) Cardiac defibrillator in place (Acute) Cardiomyopathy (Acute) Carotid artery stenosis (Acute) Chronic pancreatitis CKD (chronic kidney disease) stage 3, GFR 30-59 ml/min (Chronic) Degenerative joint disease (DJD) of hip (Acute) Diabetes mellitus, type 2 Diabetic nephropathy (Acute) Diabetic peripheral neuropathy (Acute) Diverticulitis Diverticulosis of colon (Acute) Duodenal ulcer GERD (gastroesophageal reflux disease) (Chronic) GERD without esophagitis (Acute) HLD (hyperlipidemia) (Chronic) HTN (hypertension), benign Hypercholesterolemia (Acute) Hypothyroid (Chronic) IBS (irritable bowel syndrome) (Acute) Insomnia (Acute) Lumbar canal stenosis (Acute) Lumbar spondylosis (Acute) Nocturia (Acute) Nonischemic cardiomyopathy Osteoarthritis (Acute) Osteoporosis Presence of cardiac pacemaker (Acute) Pulmonary nodule (Acute) Rib fracture 09/17/18 R/T FALL. D/C'D TO [facility]. Scaphoid fracture of wrist Urge incontinence of urine (Acute) Vitamin D deficiency, unspecified (Acute) Surgical History History of cardiac cath PER PT, 5-10 YEARS AGO AT [facility] - REASON? - NO STENTS/ANGIOPLASTY History of cholecystectomy (Resolved) History of colonoscopy History of ERCP w/ sphincterotomy & CBD stent History of esophagogastroduodenoscopy (EGD) History of vertebroplasty T12 S/P appendectomy S/P hysterectomy S/P ICD (internal cardiac defibrillator) procedure Biventricular AICD placed in 2007 S/P kyphoplasty (Inactive) S/P partial colectomy S/P rotator cuff surgery Family History Son Family history of diabetes mellitus Unknown Breast cancer Sister Breast cancer Social History Preferred Language: Tajik Communication Ability: Effective Visual Impairment: No Limitations 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 and A total of 10 systems reviewed and were otherwise negative Physical Exam Vital Signs Vital Signs - 24 hr 10/06/19 10:09 10/06/19 10:25 10/06/19 10:27 Temperature 97.9 F Temperature Source Oral Pulse Rate 86 89 89 Pulse Rate [Left] Pulse Rate from SpO2 Sensor 89 85 Respiratory Rate 18 22 17 Respiratory Effort / Characteristics Short of Breath Respiratory Depth Normal Blood Pressure 137/88 148/100 H Blood Pressure [Right Arm] Blood Pressure Mean 104 126 Blood Pressure Mean [Right Arm] Blood Pressure Position Sitting Blood Pressure Position [Right Arm] Pulse Oximetry 90 95 93 Oxygen Delivery Method Room Air Sepsis Recent Fever Within 48 Hours No Sepsis New/Unexplained Change in Mental Status No Sepsis Action Taken by Nursing No Action Required 10/06/19 10:28 10/06/19 10:30 10/06/19 10:37 Temperature Temperature Source Pulse Rate 82 83 Pulse Rate [Left] 81 Pulse Rate from SpO2 Sensor 82 Respiratory Rate 24 22 20 Respiratory Effort / Characteristics Spontaneous Respiratory Depth Blood Pressure Blood Pressure [Right Arm] 148/100 H Blood Pressure Mean Blood Pressure Mean [Right Arm] 116 Blood Pressure Position Blood Pressure Position [Right Arm] Lying Pulse Oximetry 93 94 93 Oxygen Delivery Method Room Air Room Air Sepsis Recent Fever Within 48 Hours Sepsis New/Unexplained Change in Mental Status Sepsis Action Taken by Nursing 10/06/19 11:00 10/06/19 11:43 10/06/19 11:44 Temperature Temperature Source Pulse Rate 85 78 78 Pulse Rate [Left] Pulse Rate from SpO2 Sensor 84 79 Respiratory Rate 16 17 17 Respiratory Effort / Characteristics Respiratory Depth Blood Pressure 154/93 H Blood Pressure [Right Arm] Blood Pressure Mean 110 Blood Pressure Mean [Right Arm] Blood Pressure Position Blood Pressure Position [Right Arm] Pulse Oximetry 96 94 Oxygen Delivery Method Sepsis Recent Fever Within 48 Hours Sepsis New/Unexplained Change in Mental Status Sepsis Action Taken by Nursing 10/06/19 12:05 10/06/19 12:57 Temperature Temperature Source Pulse Rate 83 Pulse Rate [Left] 86 Pulse Rate from SpO2 Sensor 86 Respiratory Rate 15 20 Respiratory Effort / Characteristics Non-Labored Spontaneous Respiratory Depth Blood Pressure Blood Pressure [Right Arm] Blood Pressure Mean Blood Pressure Mean [Right Arm] Blood Pressure Position Blood Pressure Position [Right Arm] Pulse Oximetry 94 94 Oxygen Delivery Method Room Air Sepsis Recent Fever Within 48 Hours Sepsis New/Unexplained Change in Mental Status Sepsis Action Taken by Nursing GENERAL: alert, ill appearing, well nourished, no distress, non-toxic EYE EXAM: normal conjunctiva, PERRL and EOM's grossly intact OROPHARYNX: no exudate, no erythema, lips, buccal mucosa, and tongue normal and mucous membranes are moist NECK: supple, no nuchal rigidity, no adenopathy, non-tender LUNGS: Clear to auscultation. Normal chest wall mechanics. Frequent coarse cough during exam. No wheezing, rhonchi, or rales. CHEST: Mild chest wall tenderness to left lateral ribs consistent with recent rib fracture. No crepitus. No step off. HEART: no murmurs, S1 normal and S2 normal ABDOMEN: abdomen soft, non-tender, normo-active bowel sounds, no masses, no rebound or guarding. BACK: Back is symmetrical on inspection and there is no deformity, no midline tenderness, no CVA tenderness. SKIN: no rashes and no bruising UPPER EXTREMITIES: upper extremities are grossly normal. FROM, nml pulses b/l. LOWER EXTREMITIES: No pitting edema. FROM, nml pulses b/l. NEURO EXAM: Normal sensorium, cranial nerves II-XII grossly intact, normal speech, no gross weakness of arms, no gross weakness of legs. Course Course 1017: The patient was evaluated in room C5, and a complete history and physical examination were performed. 1031: I reviewed the patient's recent ER evaluation, labs, and imaging. Vital signs stable. 1230: I reevaluated the patient. I updated the patient on her labs and imaging. She states she still feels weak and dizzy. 1302: I [facility] the [facility] the patient for further management. Administered Medications Acetaminophen (Tylenol) 1,000 mg PO Q8 KIM Stop: 11/06/19 13:59 Last Admin: 10/07/19 14:07 Dose: 1,000 mg Documented by: [id number] Albuterol (Ventolin 0.083% 2.5mg/3ml) 2.5 mg NEB Q6R KIM Stop: 11/06/19 12:59 Last Admin: 10/07/19 13:30 Dose: 2.5 mg Documented by: [id number] Atorvastatin Calcium (Lipitor) 40 mg PO HS KIM Stop: 11/05/19 20:59 Last Admin: 10/06/19 20:50 Dose: 40 mg Documented by: [id number] Azithromycin (Zithromax) 250 mg PO QAM [facility]; Protocol Stop: 10/11/19 08:59 Last Admin: 10/07/19 09:42 Dose: 250 mg Documented by: [id number] Cyanocobalamin (Vitamin B-12) 1,000 mcg PO QAM KIM Stop: 11/06/19 08:59 Last Admin: 10/07/19 09:42 Dose: 1,000 mcg Documented by: [id number] Guaifenesin/Codeine Phosphate (Robitussin-Ac Sugar Free) 5 ml PO Q6H PRN PRN Reason: Cough Stop: 11/05/19 22:05 Last Admin: 10/06/19 23:53 Dose: 5 ml Documented by: [id number] Heparin Sodium (Porcine) (Heparin Sodium (Porcine)) 5,000 units SQ Q12 [facility] Stop: 11/05/19 20:59 Last Admin: 10/07/19 09:41 Dose: 5,000 units Documented by: [id number] Cosigned by: [id number] Admin: 10/06/19 20:50 Dose: 5,000 units Documented by: [id number] Cosigned by: [id number] Ceftriaxone Sodium (Rocephin) 1,000 mg in 50 mls @ 100 mls/hr IV Q24H [facility]; Protocol Stop: 10/13/19 11:59 Last Infusion: 10/07/19 12:19 Dose: 0 mls/hr Documented by: [id number] Admin: 10/07/19 11:41 Dose: 100 mls/hr Documented by: [id number] Insulin Aspart (Novolog Flexpen) 0 units SC ACHS [facility] Stop: 11/05/19 16:29 Last Admin: 10/07/19 11:42 Dose: Not Given Documented by: [id number] Cosigned by: [id number] Admin: 10/07/19 09:39 Dose: Not Given Documented by: [id number] Cosigned by: [id number] Admin: 10/06/19 20:56 Dose: Not Given Documented by: [id number] Cosigned by: [id number] Admin: 10/06/19 17:25 Dose: Not Given Documented by: [id number] Cosigned by: [id number] Levothyroxine Sodium (Synthroid) 150 mcg PO DAILYBB [facility] Stop: 11/06/19 06:29 Last Admin: 10/07/19 06:30 Dose: 150 mcg Documented by: [id number] [facility]idoc[facility] (Lidoderm 5%) [facility] [place]: 11/06/19 12:29 Last Admin: 10/07/19 12:46 Dose: 1 patch Documented by: [id number] Lisinopril (Zestril) 10 mg PO QAM [facility] Stop: 11/06/19 08:59 Last Admin: 10/07/19 09:42 Dose: 10 mg Documented by: [id number] Ondansetron HCl (Zofran) 4 mg IV Q6H PRN PRN Reason: Nausea Stop: 11/06/19 12:15 Last Admin: 10/07/19 12:28 Dose: 4 mg Documented by: [id number] Oxybutynin Chloride (Ditropan Xl) 5 mg PO HS [facility] Stop: 11/05/19 20:59 Last Admin: 10/06/19 20:50 Dose: 5 mg Documented by: [id number] Vitamin D (Vitamin D3) 2,000 units PO QAM KIM Stop: 11/06/19 08:59 Last Admin: 10/07/19 09:42 Dose: 2,000 units Documented by: [id number] Discontinued Medications Albuterol (Duoneb) 3 ml NEB NOW STA Stop: 10/06/19 12:26 Last Admin: 10/06/19 12:52 Dose: 3 ml Documented by: [id number] Azithromycin (Zithromax) 500 mg PO NOW ONE Stop: 10/06/19 12:26 Last Admin: 10/06/19 12:50 Dose: 500 mg Documented by: [id number] Diphenhydramine HCl (Benadryl Capsule) 25 mg PO NOW ONE Stop: 10/07/19 00:03 Last Admin: 10/07/19 00:44 Dose: 25 mg Documented by: [id number] Sodium Chloride (Nss 1000ml) 1,000 mls @ 200 mls/hr IV .Q5H [facility] Stop: 11/05/19 10:44 Last Admin: 10/06/19 17:30 Dose: Not Given Documented by: [id number] Infusion: 10/06/19 15:55 Dose: 0 mls/hr Documented by: [id number] Admin: 10/06/19 10:54 Dose: 200 mls/hr Documented by: [id number] Ceftriaxone Sodium (Rocephin) 1,000 mg in 50 mls @ 100 mls/hr IV NOW STA Stop: 10/06/19 12:54 Last Infusion: 10/06/19 13:26 Dose: 0 mls/hr Documented by: [id number] Admin: 10/06/19 12:50 Dose: 100 mls/hr Documented by: [id number] Lactated Ringer's (Lr) 1,000 mls @ 80 mls/hr IV .[id number] KIM Stop: 10/07/19 18:14 Last Infusion: 10/07/19 14:09 Dose: 0 mls/hr Documented by: [id number] Admin: 10/07/19 06:29 Dose: 80 mls/hr Documented by: [id number] Infusion: 10/07/19 06:29 Dose: 80 mls/hr Documented by: [id number] Admin: 10/06/19 18:08 Dose: 80 mls/hr Documented by: [id number] Ioversol (Optiray 320 100ml) 94 ml IV ONCE PRN PRN Reason: Interaction Checking Stop: 10/10/19 11:30 Last Admin: 10/06/19 11:32 Dose: 94 ml Documented by: [id number] Tramadol HCl (Ultram) 50 mg PO Q8H PRN PRN Reason: pain Stop: 11/05/19 14:49 Last Admin: 10/07/19 09:49 Dose: 50 mg Documented by: [id number] Medical Decision Making Differential Diagnosis Differential diagnoses includes but is not limited to pneumonia, bronchitis, COPD/Asthma exacerbation, pneumothorax, pulmonary embolism, congestive heart failure, acute coronary syndrome Medical Records Attestation: I reviewed the patient's medical records. Home Medications Current Medication List: was personally reviewed by me Laboratory Data Attestation: I reviewed the patient's lab results. Result diagrams: 10/07/19 05:45 10/07/19 05:45 Lab Results 10/06/19 10/06/19 10/06/19 Range/Units 10:30 10:45 10:45 WBC 8.50 (4.8-10.8) K/uL RBC 4.56 (4.2-5.4) M/uL Hgb 14.3 (12.0-16.0) g/dL Hct 43.5 (37-47) % MCV 95.4 (80-100) fL MCH 31.4 (25-34) pg MCHC 32.9 (32-36) g/dL RDW Std Deviation 49.9 H (36.4-46.3) fL RDW Coeff of Radha 14.3 (11.5-14.5) % Plt Count 178 (130-400) K/uL MPV 10.3 (7.4-10.4) fL Immature Gran % (Auto) 0.1 % Neut % (Auto) 59.1 % Lymph % (Auto) 26.7 % Russell % (Auto) 12.1 % Eos % (Auto) 1.9 % Baso % (Auto) 0.1 % Immature Gran # (Auto) 0.01 (0.00-0.02) K/uL Neut # (Auto) 5.02 (1.4-6.5) K/uL Lymph # (Auto) 2.27 (1.2-3.4) K/uL Russell # (Auto) 1.03 H (0.11-0.59) K/uL Eos # (Auto) 0.16 (0-0.5) K/uL Baso # (Auto) 0.01 (0-0.2) K/uL Sodium 139 (136-145) mmol/L Potassium 3.8 (3.5-5.1) mmol/L Chloride 107 (98-107) mmol/L Carbon Dioxide 26 (21-32) mmol/L Anion Gap 6.0 (3-11) BUN 26 H (7-18) mg/dl Creatinine 1.41 H (0.6-1.2) mg/dl Est Cr Clr Drug Dosing 26.9 ml/min Est GFR ( Amer) 39.0 Est GFR (Non-Af Amer) 33.6 BUN/Creatinine Ratio 18.5 (10-20) Glucose 130 H (70-99) mg/dl POC Lactic Acid Drew (0.90-1.70) mmol/L Calcium 9.1 (8.5-10.1) mg/dl Magnesium 2.3 (1.8-2.4) mg/dl Total Bilirubin 0.9 (0.2-1) mg/dl AST 33 (15-37) U/L ALT 23 (12-78) U/L Alkaline Phosphatase 91 (45-117) U/L Troponin I 0.027 (0-0.045) ng/ml NT-Pro-B Natriuret Pep 2128 H (0-1800) pg/ml Total Protein 8.1 (6.4-8.2) gm/dl Albumin 3.4 (3.4-5.0) gm/dl Globulin 4.7 H (2.5-4.0) gm/dl Albumin/Globulin Ratio 0.7 L (0.9-2) Lipase 158 (73-393) U/L Influenza Type A (PCR) Neg for Influ A (Neg) Influenza Type B (PCR) Neg for Influ B (Neg) 10/06/19 Range/Units 10:54 WBC (4.8-10.8) K/uL RBC (4.2-5.4) M/uL Hgb (12.0-16.0) g/dL Hct (37-47) % MCV (80-100) fL MCH (25-34) pg MCHC (32-36) g/dL RDW Std Deviation (36.4-46.3) fL RDW Coeff of Radha (11.5-14.5) % Plt Count (130-400) K/uL MPV (7.4-10.4) fL Immature Gran % (Auto) % Neut % (Auto) % Lymph % (Auto) % Russell % (Auto) % Eos % (Auto) % Baso % (Auto) % Immature Gran # (Auto) (0.00-0.02) K/uL Neut # (Auto) (1.4-6.5) K/uL Lymph # (Auto) (1.2-3.4) K/uL Russell # (Auto) (0.11-0.59) K/uL Eos # (Auto) (0-0.5) K/uL Baso # (Auto) (0-0.2) K/uL Sodium (136-145) mmol/L Potassium (3.5-5.1) mmol/L Chloride (98-107) mmol/L Carbon Dioxide (21-32) mmol/L Anion Gap (3-11) BUN (7-18) mg/dl Creatinine (0.6-1.2) mg/dl Est Cr Clr Drug Dosing ml/min Est GFR ( Amer) Est GFR (Non-Af Amer) BUN/Creatinine Ratio (10-20) Glucose (70-99) mg/dl POC Lactic Acid Drew 1.27 (0.90-1.70) mmol/L Calcium (8.5-10.1) mg/dl Magnesium (1.8-2.4) mg/dl Total Bilirubin (0.2-1) mg/dl AST (15-37) U/L ALT (12-78) U/L Alkaline Phosphatase (45-117) U/L Troponin I (0-0.045) ng/ml NT-Pro-B Natriuret Pep (0-1800) pg/ml Total Protein (6.4-8.2) gm/dl Albumin (3.4-5.0) gm/dl Globulin (2.5-4.0) gm/dl Albumin/Globulin Ratio (0.9-2) Lipase (73-393) U/L Influenza Type A (PCR) (Neg) Influenza Type B (PCR) (Neg) Imaging Data Radiologist's Impression: Radiology results as stated below per my review and the radiologist's interpretation: CT SCAN OF THE CHEST WITH IV CONTRAST CLINICAL HISTORY: Cough and dyspnea. COMPARISON STUDY: Chest CT scans dated 10/01/2019 and 09/17/2010. TECHNIQUE: Following the IV administration of 94 cc of Optiray 320, CT scan of the thorax was performed from the thoracic inlet to the upper abdomen. Images are reviewed in the axial, sagittal, and coronal planes. IV contrast was administered without complication. A dose lowering technique was utilized adhering to the principles of ALARA. The examination is degraded by motion artifact, as well as by streak artifact from the arms which could not be elevated above the chest. CT DOSE: 617.79 mGy.cm FINDINGS: Thyroid: Atrophic versus surgically absent. Thoracic aorta: There is atherosclerotic calcification of the thoracic aorta, which is normal in caliber and demonstrates standard 3-vessel arch anatomy. No dissection is seen. Pulmonary vasculature: The pulmonary trunk is normal in caliber. There are no filling defects identified in the central pulmonary vessels to indicate pulmonary embolus. Note that this examination was not protocoled for evaluation of the pulmonary arteries. Heart: A cardiac AICD is present in the left chest wall. The heart is enlarged and there is a small pericardial effusion. Lungs and pleural spaces: Evaluation of the lung parenchyma is modestly degraded by motion artifact. There are mild dependent airspace opacities at the left lung base. Intraluminal secretions are noted in the left lower lobe bronchi and there is associated peribronchial thickening. No pleural effusion or pneumothorax is seen. Minimal secretions are noted in the trachea. Scarring/atelectasis is seen at the lung bases. Mediastinum: There are numerous mildly enlarged mediastinal lymph nodes. The largest node is in the precarinal region measures 1.8 cm in short axis. Kaur: A mildly enlarged left hilar node measures 1.1 cm short axis. No right hilar adenopathy is seen. Axillae: There is no axillary lymphadenopathy. Upper abdomen: The gallbladder is surgically absent. There is mild intrahepatic biliary ductal dilatation and pneumobilia. A small to moderate hiatal hernia is noted. A 1.0 cm cystic lesion is again seen within the pancreatic body on image #27. 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 Diffuse peripheral calcification of the pancreas suggests chronic pancreatitis. Skeletal structures: The skeletal structures are heterogeneously osteopenic. There is a chronic compression deformity of T12 with evidence of previous vertebroplasty. No lytic or blastic bony lesions are seen. Spondylotic changes noted in the thoracic spine. Advanced degenerative change is present in the shoulders. There are numerous calcified joint bodies bilaterally as well as bursal fluid. There is a subacute/healing fracture of the left lateral ninth rib. No acute fracture is seen. There are numerous healed bilateral rib fractures. IMPRESSION: 1. There are mild dependent airspace opacities at the left lung base with associated peribronchial thickening and intraluminal secretions/debris in the left lower lobe. This could represent atelectasis versus developing pneumonia or aspiration pneumonitis. Clinical correlation will be required. 2. There is a subacute/healing left lateral 9th rib fracture. 3. Cardiomegaly and AICD. 4. Mildly enlarged mediastinal and left hilar lymph nodes are similar to previous. 5. Additional chronic findings as above. ACT 112: Positive. There are findings on this exam that require communication between the performing entity and the patient following Patient Test Result Information Act ([place] Act 112) guidelines. Electronically signed by: Michael Scherer M.D. 10/06/2019 11:56 AM ECG Data Attestation: I personally reviewed and interpreted this ECG as follows: Indication: + weakness Rate (beats per minute): 82 Rhythm: + other (Paced rhythm) ECG Intervals/blocks: + Normal QRS, + Normal QT, + Normal MI and + Normal QT-c ECG [place]: + Normal ECG ST segments: + T-wave inversions; no ST depression and no ST elevation ECG Findings: no PACs and no PVCs Comparison ECG Date: from (10/01/19) Change: the following changes noted (TWI is new) Blood Pressure Blood Pressure Findings: Elevated blood pressure Blood Pressure Disposition: Referred to patients primary care provider [facility] Narrative Patient here ill-appearing with increased work of breathing and need for additional oxygen requirement. Patient found to have a pneumonia. Due to her continued oxygen requirements, worsening weakness, poor p.o. intake and dehydration, as well as elevated curb 65 score, patient admitted for inpatient management and treatment. Patient started on IV antibiotics for community- acquired pneumonia. No evidence of influenza. No evidence of CHF or acute cardiac etiology. No evidence of bacteremia/sepsis. Patient hemodynamically stable in the emergency room, updated on all results and in agreement with plan. Mild elevation of the patient's creatinine noted likely secondary to poor p.o. intake, I feel this is more likely contributing to the elevated BNP. Patient's physical exam not consistent with acute pulmonary edema or volume overload. Impression & Plan Dyspnea, Pneumonia, DAVONTE (acute kidney injury), Dehydration, Generalized weakness Discharge Plan Visit Data *Final* Discharge Date/Time: 10/06/19 14:20 Chief Complaint: Flu Like Symptoms Stated Complaint: POSSIBLE PNEUMONIA SENT BY DR JACOBSON Provider: Natalie Herrera Discharge Problem: Dyspnea, Pneumonia, DAVONTE (acute kidney injury), Dehydration, Generalized weakness Patient Disposition: Admitted As Inpatient Discharge Instructions Interventions: ED Discharge Assessment Last Done: 10/06/19 14:20 Risk - CURB-65 Scoring CURB-65 Scoring Confusion: No BUN >19 mg/dl (>7 mmol/L): Yes Respiratory Rate > or = 30: No SBP <90 mmHg or DBP < or = 60 mmHg: No Age > or = 65: Yes CURB-65 Total Points: 2 CURB-65 Risk: Moderate Risk Pneumonia CURB-65 Interpretation: Score interpretation (as per derivation study): CURB-65 Mortality Score Risk Recommendations* 0 0.60% Low risk, consider home treatment 1 2.70% Low risk, consider home treatment 2 6.80% Short inpatient hospitalization or closely supervised outpt treatment 3 14.00% Severe pneumonia; hospitalize and consider admitting to intensive care 4 or 5 27.80% Severe pneumonia; hospitalize and consider admitting to intensive care Reference: 1. Angela MEZA, et. al. Validity of Pneumonia Severity Index and CURB-65 Severity Scoring Systems in Community Acquired Pneumonia in an [place] Setting. [facility] [place] [facility] Disease & Allied Sciences. 2010; Vol 52. 2. Aujesky D, Leslie TE, Hieu DM, et al. Prospective comparison of three validated prediction rules for prognosis in community-acquired pneumonia. AM. J. Med. 2005; 118(4): 384-92.doi: [email or web address]/[email or web address]. PMID [id number] 3. Prasad PK, Rigoberto AV, Harvey SL, Devorah DN, Srinivas BD. Seveirty assessment criteria recommended by the [place] [employer] (BTS) for communicty- acquired pneumonia (CAP) and older patients. Should SOAR (systolic blood pressure, oxygenation, age and respiratory rate) criteria be used in older people? A compilation study of two prospective coholrts. Age Ageing. 2006:35(3):286-91 4. David A, Sima PP, Kaiden JM, et al. Validation of a predictive rule f or the management of community-acquired pneumonia. Eur Respir J. 2006:27 (1):151-7. Discharge Problem: Dyspnea Qualifiers: Dyspnea type: unspecified Qualified Code(s): R06.00 - Dyspnea, unspecified Pneumonia Qualifiers: Pneumonia type: due to unspecified organism Laterality: left Lung location: lower lobe of lung Qualified Code(s): J18.9 - Pneumonia, unspecified organism The scribe's documentation has been prepared under my direction and personally reviewed by me in its entirety. I confirm that the note above accurately reflects all work, treatment, procedures, and medical decision making performed by me.
[2019-10-07] MEDS: ATORVASTATIN 40 MG TAB PO SCH (20:17)
[2019-10-07] MEDS: OXYBUTYNIN CHLORIDE XL 5 MG TABCR PO SCH (20:17)
[2019-10-07] MEDS: GUAIFENESIN/CODEINE 100MG/10MG 5ML UDC PO PRN (20:21)
[2019-10-08] MEDS: ALBUTEROL 0.083% NEBU SOLN 3 ML VIAL NEB SCH ×4 (00:28→19:25)
[2019-10-08] MEDS: ACETAMINOPHEN 500 MG TAB PO SCH ×3 (05:42→21:01)
[2019-10-08] MEDS: LEVOTHYROXINE SODIUM 150 MCG TABLET PO SCH (05:42)
[2019-10-08 08:19] LABS: BUN Creatinine Ratio 18.1 (10-20); Creatinine Clr Calc Pharmacy 30.7 ml/min; Est GFR (African American) 46.5; Est GFR (Non-African American) 40.1; Potassium 3.7 mmol/L (3.5-5.1)
[2019-10-08] MEDS: INSULIN ASPART 100 UNITS/ML 3 ML PEN SC SCH ×5 (09:08→21:20)
[2019-10-08] MEDS: HEPARIN SOD 5,000 UNIT/0.5 ML VIAL SQ SCH ×2 (09:09→21:00)
[2019-10-08] MEDS: LIDOCAINE 5% 1 PATCH TD SCH (09:10)
[2019-10-08] MEDS: CYANOCOBALAMIN 500 MCG TABLET (VITAMIN B-12) PO SCH (09:10)
[2019-10-08] MEDS: AZITHROMYCIN 250 MG TAB PO SCH (09:11)
[2019-10-08] MEDS: lisinopriL 10 MG TAB PO SCH (09:11)
[2019-10-08] MEDS: CHOLECALCIFEROL 1,000 UNITS 25 MCG TAB PO SCH (09:11)
[2019-10-08] MEDS: ONDANSETRON INJ 2 MG/ML 2 ML VIAL IV PRN (13:15)
[2019-10-08] MEDS: cefTRIAXone SODIUM 1,000 MG/50 ML BAG IV SCH (13:19)
--- NOTE | 2019-10-08 18:13 | Hospitalist Progress Note ---
Date of Service October 08, 2019 Assessment & Plan (1) Pneumonia: Presented with fever at home, productive cough, malaise, with LLL infilatrate on CXR Community acquired pneumonia CURB 65 - 2, in setting of recent rib fracture Remains afebrile, no leukocytosis, no significant hypoxia, not on O2 -continue ceftriaxone and azithro -continue IS, pain control for rib fracture -continue flutter valve -continue albuterol nebs -only slight wheeze now-improved (2) Closed rib fracture: secondary to fall recently at home tramadol made her nauseated and was dcd Pain controlled now -continue lidocaine patch to ribs -continue tylenol 1000mg po q8h scheduled (3) Cardiac defibrillator in place: Prior cardiac arrest > 10 years ago ?2003. Wishes defibrillator left on but not for CPR. Resolved cardiomyopathy. (4) Dehydration: Elevated BUN on admission secondary to dehydration from fever, pneumonia -received NSS initially Encouraged po intake (5) Diabetes: HbA1C well controlled at 6.2% Hold glipizide while inpatient and not taking much po Insulin correction factor, no carb coverage. BSG ACHS. (6) Urge incontinence of urine: Continue oxybutynin (7) Hypothyroid: Last TSH 0.136 in August , levothyroxine reduced from 175 to 150 at that time. 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 Suspect this can just be watched, recommend correlating with prior imaging. 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 Rib pain is improved. Was out of bed multiple times today and with PT, feeling stronger. No nausea, is barbara po, no diarrhea. Review of Systems Review of Systems: All systems reviewed & are unremarkable except as noted in HPI & below Physical Exam Constitutional: WD/WN, vitals as above Eyes: + anicteric sclerae Neck: trachea midline, no thyromegaly Respiratory: normal respiratory effort, lungs clear to auscultation normal respiratory effort; no labored breathing Auscultation: + crackles (left base) and + rhonchi (left base and middle lung field) Cardiovascular: RRR, no murmur, no edema Chest (Breasts): Chest: normal inspection of chest Gastrointestinal (Abdomen): normal bowel sounds, soft, nontender, no hepatosplenomegaly Musculoskeletal: Extremities: extremities normal to inspection; no cyanosis and no clubbing Skin: no rashes, warm and dry Neurologic: moves all extremities and awake; no focal motor deficits Psychiatric: A+Ox3, euthymic affect Lymphatic: no lymphedema Results & Data Vital Signs (Past 12 Hours) Vital Signs Temp Pulse Pulse Resp BP Pulse Ox 10/08/19 15:38 75 10/08/19 14:51 36.6 C 75 18 151/76 H 93 10/08/19 13:15 76 18 94 10/08/19 10:49 36.5 C 73 18 109/54 L 90 10/08/19 08:00 86 10/08/19 07:21 72 18 91 10/08/19 07:00 36.5 C 67 18 149/82 H 92 Laboratory Results 10/08/19 10/08/19 10/08/19 Range/Units 16:25 11:43 07:29 Sodium (136-145) mmol/L Potassium (3.5-5.1) mmol/L Chloride (98-107) mmol/L Carbon Dioxide (21-32) mmol/L Anion Gap (3-11) BUN (7-18) mg/dl Creatinine (0.6-1.2) mg/dl Est Cr Clr Drug Dosing ml/min Est GFR ( Amer) Est GFR (Non-Af Amer) BUN/Creatinine Ratio (10-20) Glucose (70-99) mg/dl POC Glucose 115 H 119 H 106 H (70-99) mg/dl Calcium (8.5-10.1) mg/dl Specimen Hemolysis 01/17/20 01/16/20 Range/Units 07:19 20:17 Sodium 140 (136-145) mmol/L Potassium 3.7 (3.5-5.1) mmol/L Chloride 108 H (98-107) mmol/L Carbon Dioxide 27 (21-32) mmol/L Anion Gap 5.0 (3-11) BUN 22 H (7-18) mg/dl Creatinine 1.22 H (0.6-1.2) mg/dl Est Cr Clr Drug Dosing 30.7 ml/min Est GFR ( Amer) 46.5 Est GFR (Non-Af Amer) 40.1 BUN/Creatinine Ratio 18.1 (10-20) Glucose 104 H (70-99) mg/dl POC Glucose 115 H (70-99) mg/dl Calcium 9.0 (8.5-10.1) mg/dl Specimen Hemolysis ECG Additional Comments: Tele with paced rhythm in the 60s-70s PG Care Time/CCT Total # of Minutes Spent Total Time Spent with Patient: Total time spent is greater than 50% in coordination of care (as documented) at patient's floor/unit and/or counseling patient: (1) Pneumonia Laterality: left Lung location: lower lobe of lung Pneumonia type: due to unspecified organism Qualified Code(s): J18.9 - Pneumonia, unspecified organism (2) Closed rib fracture Encounter type: initial encounter Laterality: left Rib fracture type: single rib Qualified Code(s): S22.32XA - Fracture of one rib, left side, initial encounter for closed fracture (3) Diabetes Diabetes mellitus type: type 2 Diabetes mellitus intermission coordinator insulin use: without halfway use Diabetes mellitus complication status: without complication Qualified Code(s): E11.9 - Type 2 diabetes mellitus without complications (4) Hypothyroid Hypothyroidism type: unspecified Qualified Code(s): E03.9 - Hypothyroidism, unspecified
[2019-10-08] MEDS ORDERED: POLYETHYLENE (MIRALAX) 17 GM PACK PO PRN (18:38)
[2019-10-08] MEDS: ATORVASTATIN 40 MG TAB PO SCH (21:04)
[2019-10-08] MEDS: OXYBUTYNIN CHLORIDE XL 5 MG TABCR PO SCH (21:04)
[2019-10-09] MEDS: ALBUTEROL 0.083% NEBU SOLN 3 ML VIAL NEB SCH ×4 (01:13→19:41)
[2019-10-09] MEDS: ACETAMINOPHEN 500 MG TAB PO SCH ×3 (06:10→21:02)
[2019-10-09] MEDS: LEVOTHYROXINE SODIUM 150 MCG TABLET PO SCH (06:10)
[2019-10-09] MEDS: ONDANSETRON INJ 2 MG/ML 2 ML VIAL IV PRN ×2 (07:46→18:41)
[2019-10-09] MEDS: INSULIN ASPART 100 UNITS/ML 3 ML PEN SC SCH ×4 (07:47→21:32)
[2019-10-09] MEDS: LIDOCAINE 5% 1 PATCH TD SCH (07:51)
[2019-10-09] MEDS: HEPARIN SOD 5,000 UNIT/0.5 ML VIAL SQ SCH ×2 (07:56→21:02)
[2019-10-09] MEDS: CYANOCOBALAMIN 500 MCG TABLET (VITAMIN B-12) PO SCH (07:58)
[2019-10-09] MEDS: CHOLECALCIFEROL 1,000 UNITS 25 MCG TAB PO SCH (07:58)
[2019-10-09] MEDS: lisinopriL 10 MG TAB PO SCH (07:59)
[2019-10-09] MEDS: AZITHROMYCIN 250 MG TAB PO SCH (07:59)
[2019-10-09] MEDS: GUAIFENESIN/CODEINE 100MG/10MG 5ML UDC PO PRN (08:17)
[2019-10-09] MEDS: cefTRIAXone SODIUM 1,000 MG/50 ML BAG IV SCH (12:15)
--- NOTE | 2019-10-09 18:39 | Hospitalist Progress Note ---
Date of Service October 09, 2019 Assessment & Plan (1) Pneumonia: Presented with fever at home, productive cough, malaise, with LLL infiltrate on CXR Community acquired pneumonia CURB 65 - 2, in setting of recent rib fracture Remains afebrile, no leukocytosis, no significant hypoxia, not on O2 Improving -continue ceftriaxone and azithro -continue IS, pain control for rib fracture -continue flutter valve -continue albuterol nebs -no further (2) Closed rib fracture: secondary to fall recently at home tramadol made her nauseated and was dcd Pain controlled now -continue lidocaine patch to ribs -continue tylenol 1000mg po q8h scheduled (3) Cardiac defibrillator in place: Prior cardiac arrest > 10 years ago ?2003. Wishes defibrillator left on but not for CPR. Resolved cardiomyopathy. (4) Dehydration: Elevated BUN on admission secondary to dehydration from fever, pneumonia -received NSS initially Encouraged po intake (5) Diabetes: HbA1C well controlled at 6.2% Hold glipizide while inpatient and not taking much po Insulin correction factor, no carb coverage. BSG ACHS. (6) Urge incontinence of urine: Continue oxybutynin (7) Hypothyroid: Last TSH 0.136 in August , levothyroxine reduced from 175 to 150 at that time. 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 Suspect this can just be watched, recommend correlating with prior imaging. (9) CKD (chronic kidney disease) stage 3, GFR 30-59 ml/min: House Principal baseline 1.2-1.4, here now 1.22 after NSS hydration -follow BMP -avoid nephrotoxins, renally dose meds when appropriate (10) Hypercholesterolemia: continue statin (11) HTN (hypertension), benign: BPs elevated but improved throughout the day -continue lisinopril 10mg daily and consider going up on dose -follow BPs (12) DVT prophylaxis: Heparin 5000 units Q12H SQ (13) Discharge planning issues: PT/OT,recommending SNF--> pt desires [facility] -plan is for Friday as CM says not able to get her there over the weekend Subjective Patient reports coughing up some sputum, having some rib pain but is doing okay overall. She is anxious for discharge. Telemetry with paced rhythm in the 60s and 70s having some nausea today Review of Systems 2 Review of Systems: All systems reviewed & are unremarkable except as noted in HPI & below Physical Exam Constitutional: WD/WN, vitals as above Eyes: PERRL, conjunctivae normal, anicteric sclerae + anicteric sclerae ENMT: external ear and nose normal, oropharynx normal Neck: trachea midline, no thyromegaly Respiratory: normal respiratory effort, lungs clear to auscultation normal respiratory effort; no labored breathing Auscultation: + crackles (bibasilar) Cardiovascular: RRR, no murmur, no edema Chest (Breasts): Chest: normal inspection of chest Gastrointestinal (Abdomen): normal bowel sounds, soft, nontender, no hepatosplenomegaly Musculoskeletal: Extremities: extremities normal to inspection; no cyanosis and no clubbing Skin: no rashes, warm and dry Neurologic: moves all extremities and awake; no focal motor deficits Psychiatric: A+Ox3, euthymic affect Lymphatic: no lymphedema Results & Data Vital Signs (Past 12 Hours) Vital Signs Temp Pulse Pulse Resp BP Pulse Ox 10/09/19 16:53 165/77 H 10/09/19 15:31 36.6 C 71 20 170/95 H 92 10/09/19 15:00 76 10/09/19 13:24 80 18 92 10/09/19 11:20 37.0 C 72 20 155/85 H 96 10/09/19 07:55 36.6 C 75 20 176/96 H 93 10/09/19 07:32 74 10/09/19 07:02 67 18 95 Laboratory Results 10/09/19 10/09/19 10/09/19 Range/Units 16:45 11:46 07:44 POC Glucose 128 H 98 114 H (70-99) mg/dl 10/08/19 Range/Units 20:02 POC Glucose 150 H (70-99) mg/dl PG Care Time/CCT Total # of Minutes Spent Total Time Spent with Patient: Total time spent is greater than 50% in coordination of care (as documented) at patient's floor/unit and/or counseling patient: (1) Pneumonia Laterality: left Lung location: lower lobe of lung Pneumonia type: due to unspecified organism Qualified Code(s): J18.9 - Pneumonia, unspecified organism (2) Closed rib fracture Encounter type: initial encounter Laterality: left Rib fracture type: single rib Qualified Code(s): S22.32XA - Fracture of one rib, left side, initial encounter for closed fracture (3) Diabetes Diabetes mellitus type: type 2 Diabetes mellitus penitentiary insulin use: without penitentiary use Diabetes mellitus complication status: without complication Qualified Code(s): E11.9 - Type 2 diabetes mellitus without complications (4) Hypothyroid Hypothyroidism type: unspecified Qualified Code(s): E03.9 - Hypothyroidism, unspecified
[2019-10-09] MEDS: OXYBUTYNIN CHLORIDE XL 5 MG TABCR PO SCH (21:02)
[2019-10-09] MEDS: ATORVASTATIN 40 MG TAB PO SCH (21:02)
[2019-10-10] MEDS: ALBUTEROL 0.083% NEBU SOLN 3 ML VIAL NEB SCH ×5 (00:42→19:39)
[2019-10-10] MEDS: ACETAMINOPHEN 500 MG TAB PO SCH ×3 (06:17→21:00)
[2019-10-10] MEDS: LEVOTHYROXINE SODIUM 150 MCG TABLET PO SCH (06:17)
[2019-10-10] MEDS: ONDANSETRON INJ 2 MG/ML 2 ML VIAL IV PRN (08:16)
[2019-10-10] MEDS: HEPARIN SOD 5,000 UNIT/0.5 ML VIAL SQ SCH ×2 (09:57→20:57)
[2019-10-10] MEDS: LIDOCAINE 5% 1 PATCH TD SCH (09:57)
[2019-10-10] MEDS: INSULIN ASPART 100 UNITS/ML 3 ML PEN SC SCH ×4 (09:57→21:01)
[2019-10-10] MEDS: CHOLECALCIFEROL 1,000 UNITS 25 MCG TAB PO SCH (09:58)
[2019-10-10] MEDS: AZITHROMYCIN 250 MG TAB PO SCH (09:58)
[2019-10-10] MEDS: CYANOCOBALAMIN 500 MCG TABLET (VITAMIN B-12) PO SCH (09:58)
[2019-10-10] MEDS: lisinopriL 10 MG TAB PO SCH (09:58)
[2019-10-10] MEDS: cefTRIAXone SODIUM 1,000 MG/50 ML BAG IV SCH (12:14)
--- NOTE | 2019-10-10 16:55 | Hospitalist Progress Note ---
Date of Service October 10, 2019 Assessment & Plan (1) Pneumonia: Presented with fever at home, productive cough, malaise, with LLL infiltrate on CXR Community acquired pneumonia Occurred in setting of recent rib fracture Remains afebrile, no leukocytosis, no significant hypoxia, not on O2 Improving -continue ceftriaxone and has now completed 5 days of azithro-convert to po cefdinir on Friday -continue IS, pain control for rib fracture -continue flutter valve -continue albuterol nebs (2) Closed rib fracture: secondary to fall recently at home, fracture of left lateral 9th rib tramadol made her nauseated and was dcd Pain controlled now -continue lidocaine patch to ribs -continue tylenol 1000mg po q8h scheduled -continue IS (3) Cardiac defibrillator in place: Prior cardiac arrest > 10 years ago ?2003. Resolved cardiomyopathy. (4) Dehydration: Elevated BUN on admission secondary to dehydration from fever, pneumonia -received NSS initially and now resolved Eating and drinking well (5) Diabetes: HbA1C well controlled at 6.2% Holding glipizide while inpatient and not taking much po Insulin correction factor, no carb coverage. BSG ACHS. (6) Urge incontinence of urine: Continue oxybutynin (7) Hypothyroid: Last TSH 0.136 in August , levothyroxine reduced from 175 to 150 at that time. 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 Suspect this can just be watched, recommend correlating with prior imaging. 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, here now 1.22 after NSS hydration -follow BMP -avoid nephrotoxins, renally dose meds when appropriate (10) Hypercholesterolemia: continue statin (11) HTN (hypertension), benign: BPs remain elevated -increase lisinopril to 20mg daily -follow BPs (12) DVT prophylaxis: Heparin 5000 units Q12H SQ (13) Discharge planning issues: PT/OT,recommending SNF--> pt desires [facility] -plan is for Friday as CM says not able to get her there over the weekend Patient's is currently at [facility] for rehab and usp IV abx so she is eager to get there soon Subjective Still coughing quite a bit. Bringing up some sputum. Has pain in left anterior lower ribs but feels it is fairly well controlled, doesn't want anything extra for pain. Moved her bowels today Review of Systems Review of Systems: All systems reviewed & are unremarkable except as noted in HPI & below Physical Exam Constitutional: WD/WN, vitals as above Eyes: PERRL, conjunctivae normal, anicteric sclerae + anicteric sclerae ENMT: external ear and nose normal, oropharynx normal Neck: trachea midline, no thyromegaly Respiratory: normal respiratory effort, lungs clear to auscultation normal respiratory effort; no labored breathing Auscultation: + crackles (bibasilar) Cardiovascular: RRR, no murmur, no edema Chest (Breasts): Chest: normal inspection of chest Gastrointestinal (Abdomen): normal bowel sounds, soft, nontender, no hepatosplenomegaly Musculoskeletal: Extremities: extremities normal to inspection; no cyanosis and no clubbing Skin: no rashes, warm and dry Neurologic: moves all extremities and awake; no focal motor deficits Psychiatric: A+Ox3, euthymic affect Lymphatic: no lymphedema Results & Data Vital Signs (Past 12 Hours) Vital Signs Temp Pulse Pulse Resp BP Pulse Ox 10/10/19 15:36 36.7 C 78 16 156/81 H 94 10/10/19 15:20 74 18 95 10/10/19 11:32 36.5 C 74 18 156/83 H 95 10/10/19 11:08 70 16 95 10/10/19 08:00 107 H 10/10/19 07:21 36.6 C 74 18 146/80 H 95 10/10/19 06:56 73 18 94 PG Care Time/CCT Total # of Minutes Spent Total Time Spent with Patient: Total time spent is greater than 50% in coordination of care (as documented) at patient's floor/unit and/or counseling patient: (1) Closed rib fracture Encounter type: initial encounter Laterality: left Rib fracture type: single rib Qualified Code(s): S22.32XA - Fracture of one rib, left side, initial encounter for closed fracture (2) Diabetes Diabetes mellitus complication status: without complication Diabetes mellitus terminal superintendent insulin use: without usp use Diabetes mellitus type: type 2 Qualified Code(s): E11.9 - Type 2 diabetes mellitus without complications (3) Hypothyroid Hypothyroidism type: unspecified Qualified Code(s): E03.9 - Hypothyroidism, unspecified (4) Pneumonia Laterality: left Lung location: lower lobe of lung Pneumonia type: due to unspecified organism Qualified Code(s): J18.9 - Pneumonia, unspecified organism
[2019-10-10] MEDS: ATORVASTATIN 40 MG TAB PO SCH (20:59)
[2019-10-10] MEDS: OXYBUTYNIN CHLORIDE XL 5 MG TABCR PO SCH (20:59)
[2019-10-11 06:38] LABS: BUN Creatinine Ratio 14.3 (10-20); Creatinine Clr Calc Pharmacy 35.8 ml/min; Est GFR (African American) 56.3; Est GFR (Non-African American) 48.6; Potassium 3.9 mmol/L (3.5-5.1)
[2019-10-11] MEDS: ALBUTEROL 0.083% NEBU SOLN 3 ML VIAL NEB SCH ×4 (06:56→20:13)
[2019-10-11] MEDS: ONDANSETRON INJ 2 MG/ML 2 ML VIAL IV PRN (07:53)
[2019-10-11] MEDS: LIDOCAINE 5% 1 PATCH TD SCH (07:58)
[2019-10-11] MEDS: ACETAMINOPHEN 500 MG TAB PO SCH ×3 (08:14→21:00)
[2019-10-11] MEDS: INSULIN ASPART 100 UNITS/ML 3 ML PEN SC SCH ×4 (08:15→21:00)
[2019-10-11] MEDS: CYANOCOBALAMIN 500 MCG TABLET (VITAMIN B-12) PO SCH (08:15)
[2019-10-11] MEDS: HEPARIN SOD 5,000 UNIT/0.5 ML VIAL SQ SCH ×2 (08:15→21:00)
[2019-10-11] MEDS: LEVOTHYROXINE SODIUM 150 MCG TABLET PO SCH (08:15)
[2019-10-11] MEDS: CHOLECALCIFEROL 1,000 UNITS 25 MCG TAB PO SCH (08:16)
[2019-10-11] MEDS: lisinopriL 20 MG TAB PO SCH (08:16)
[2019-10-11] MEDS: predniSONE 50 MG TAB PO SCH (10:21)
[2019-10-11] MEDS: cefTRIAXone SODIUM 1,000 MG/50 ML BAG IV SCH (12:26)
--- NOTE | 2019-10-11 13:19 | Hospitalist Progress Note ---
Date of Service October 11, 2019 Assessment & Plan (1) Pneumonia: Presented with fever at home, productive cough, malaise, with LLL infiltrate on CXR Community acquired pneumonia Occurred in setting of recent rib fracture Remains afebrile, no leukocytosis, no significant hypoxia, not on O2 Improving Now completed 5 days of Rocephin and azithromycin - will stop abx -continue IS, pain control for rib fracture -continue flutter valve -continue albuterol nebs - will add 4 days of 50 mg po prednisone for wheezing (2) Closed rib fracture: secondary to fall recently at home, fracture of left lateral 9th rib tramadol made her nauseated and was dcd Pain controlled now -continue lidocaine patch to ribs -continue tylenol 1000mg po q8h scheduled -continue IS (3) Cardiac defibrillator in place: Prior cardiac arrest > 10 years ago ?2003. Resolved cardiomyopathy. (4) Dehydration: Resolved, IVF discontinued, eating and drinking well (5) Diabetes: HbA1C well controlled at 6.2% Holding glipizide while inpatient Insulin correction factor, no carb coverage. BSG ACHS. (6) Urge incontinence of urine: Continue oxybutynin (7) Hypothyroid: Last TSH 0.136 in August , levothyroxine reduced from 175 to 150 at that time. 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 Suspect this can just be watched, recommend correlating with prior imaging. Follow up with pcp (9) CKD (chronic kidney disease) stage 3, GFR 30-59 ml/min: At baseline -follow BMP -avoid nephrotoxins, renally dose meds when appropriate (10) Hypercholesterolemia: continue statin (11) HTN (hypertension), benign: BPs remain elevated -increased lisinopril to 20mg daily -follow BPs (12) DVT prophylaxis: Heparin 5000 units Q12H SQ (13) Discharge planning issues: PT/OT,recommending SNF--> pt desires [facility] - awaiting auth and placement, can discharge once that is in place Subjective Ms. Reynolds reports feeling better. Her cough is improving, less sputum production. ROS Constitutional: no chills, aches, sweats or fever Respiratory: no sob, Cardiac: no chest pain, palpitations, edema, orthopnea or lightheadedness GI: no abdominal pain, nausea, vomiting, diarrhea or constipation : no dysuria or hesitancy Extremities: no joint pain or weakness Skin: no rash All other systems reviewed and negative Physical Exam Physical Exam: General: no distress Eyes: normal inspection, PERLL Respiratory: chest non tender, expiratory wheezes bilaterally, no respiratory distress, no accessory muscle use Cardiac: regular rate and rhythm, no rub or gallop, no murmur, no edema, no jvd GI/: active bowel sounds, no abd pain or tenderness, soft, non distended Extremities: normal range of motion, normal strength, non tender Neuro/Psych: alert and oriented x 3, normal mood and affect Skin: normal color, dry Results & Data Vital Signs (Past 12 Hours) Vital Signs Temp Pulse Pulse Resp BP Pulse Ox 10/11/19 11:31 36.9 C 78 16 153/80 H 93 10/11/19 10:52 74 18 92 10/11/19 08:00 73 10/11/19 07:07 36.7 C 70 18 169/93 H 93 10/11/19 06:58 75 16 92 10/11/19 04:27 36.7 C 72 20 166/93 H 93 PG Care Time/CCT Total # of Minutes Spent Total Time Spent with Patient: Total time spent is greater than 50% in coordination of care (as documented) at patient's floor/unit and/or counseling patient: (1) Pneumonia Laterality: left Lung location: lower lobe of lung Pneumonia type: due to unspecified organism Qualified Code(s): J18.9 - Pneumonia, unspecified organism (2) Closed rib fracture Encounter type: initial encounter Laterality: left Rib fracture type: single rib Qualified Code(s): S22.32XA - Fracture of one rib, left side, initial encounter for closed fracture (3) Diabetes Diabetes mellitus type: type 2 Diabetes mellitus termination clerk insulin use: without termination clerk use Diabetes mellitus complication status: without complication Qualified Code(s): E11.9 - Type 2 diabetes mellitus without complications (4) Hypothyroid Hypothyroidism type: unspecified Qualified Code(s): E03.9 - Hypothyroidism, unspecified
[2019-10-11] MEDS: OXYBUTYNIN CHLORIDE XL 5 MG TABCR PO SCH (21:00)
[2019-10-11] MEDS: ATORVASTATIN 40 MG TAB PO SCH (21:00)
[2019-10-12] MEDS: ALBUTEROL 0.083% NEBU SOLN 3 ML VIAL NEB SCH ×3 (07:11→15:13)
[2019-10-12] MEDS: ACETAMINOPHEN 500 MG TAB PO SCH ×2 (08:07→15:00)
[2019-10-12] MEDS: LIDOCAINE 5% 1 PATCH TD SCH (08:08)
[2019-10-12] MEDS: HEPARIN SOD 5,000 UNIT/0.5 ML VIAL SQ SCH (08:08)
[2019-10-12] MEDS: predniSONE 50 MG TAB PO SCH (08:08)
[2019-10-12] MEDS: LEVOTHYROXINE SODIUM 150 MCG TABLET PO SCH (08:08)
[2019-10-12] MEDS: CYANOCOBALAMIN 500 MCG TABLET (VITAMIN B-12) PO SCH (08:09)
[2019-10-12] MEDS: lisinopriL 20 MG TAB PO SCH (08:09)
[2019-10-12] MEDS: CHOLECALCIFEROL 1,000 UNITS 25 MCG TAB PO SCH (08:09)
[2019-10-12 08:11] LABS: Basophils # (auto) 0.01 K/uL (0-0.2); Basophils % (auto) 0.1 %; Eosinophils # (auto) 0.03 K/uL (0-0.5); Eosinophils % (auto) 0.3 %; Hematocrit (blood only) 41.7 % (37-47); Hemoglobin 13.9 g/dL (12.0-16.0); Immature Granulocytes # (auto) 0.02 K/uL (0.00-0.02); Immature Granulocytes % (auto) 0.2 %; Lymphocytes # (auto) 2.63 K/uL (1.2-3.4); Lymphocytes % (auto) 24.9 %; Mean Corpuscular Hemoglobin 31.7 pg (25-34); Mean Corpuscular Hgb Conc 33.3 g/dL (32-36); Mean Corpuscular Volume 95.2 fL (80-100); Mean Platelet Volume 10.7 fL (7.4-10.4); Monocytes # (auto) 1.01 K/uL (0.11-0.59); Monocytes % (auto) 9.5 %; Neutrophils # (auto) 6.88 K/uL (1.4-6.5); Platelet Count 237 K/uL (130-400); RDW Coefficient of Variation 14.5 % (11.5-14.5); RDW Standard Deviation 50.7 fL (36.4-46.3); Red Blood Count 4.38 M/uL (4.2-5.4); White Blood Count 10.58 K/uL (4.8-10.8)
[2019-10-12 08:38] LABS: BUN Creatinine Ratio 15.9 (10-20); Calcium 9.6 mg/dl (8.5-10.1); Est GFR (African American) 45.5; Est GFR (Non-African American) 39.3; Potassium 3.8 mmol/L (3.5-5.1)
[2019-10-12] MEDS: INSULIN ASPART 100 UNITS/ML 3 ML PEN SC SCH ×2 (09:15→12:57)
--- NOTE | 2019-10-12 15:41 | Discharge Summary ---
Date of Service October 12, 2019 Admission HPI Per Admitting Provider Katty Reynolds is an 84 year old female who presents to the ER with generalized fatigue, cough with green sputum, decreased appetite, shortness of breath and wheezing. Highest fever 101.1 today. Symptoms have come on over the last 3 days. She was in the ER recently on with a fall (mechanical with chair slipping out underneath her) and subsequent left 9th rib fracture. She went to see her PCP and recommended coming to the ER for evaluation as she did not feel the patient was safe to return home which I completely agree. Patient denies any chest pain, palpitations, claudication. She denies any swallowing difficulties or coughing/choking after eating just her appetite has severely decreased. ER workup included CT chest re-demonstrated subacute 9th rib fracture from last admission with new mild dependant airspace opacities in left lung base which could represent atelectasis versus developing pneumonia or aspiration pneumonitis. She was given a duoneb however this did not help at all. Never had prior inhalers, no previous wheezing to this episode. Principal Diagnosis Pneumonia Discharge Exam Constitutional WD/WN, vitals as above Respiratory normal respiratory effort, lungs clear to auscultation Cardiovascular RRR, no murmur, no edema Gastrointestinal (Abdomen) Inspection/Auscultation: abdomen normal to inspection and normal bowel sounds; abdomen not distended Percussion/Palpation: abdomen soft; abdomen nontender Musculoskeletal no cyanosis or clubbing, extremities motor strength 5/5 Skin no rashes, warm and dry Neurologic moves all extremities and awake Psychiatric A+Ox3, euthymic affect Discharge Data Allergies Allergy/AdvReac Type Severity Reaction Status Date / Time celecoxib Allergy Severe SX OF Verified 10/06/19 11:18 STROKE, FACIAL NUMBNESS, UNABLE TO SPEAK fesoterodine [From Toviaz] Allergy Unknown Unknown Verified 10/06/19 11:18 solifenacin [From Vesicare] Allergy Unknown Unknown Verified 10/06/19 11:18 morphine AdvReac Intermediate Confusion Verified 10/06/19 11:18 ciprofloxacin AdvReac Mild UPSET Verified 10/06/19 11:18 STOMACH metronidazole AdvReac Mild N/V Verified 10/06/19 11:18 Cipro AdvReac Unknown UPSET Verified 02/17/17 12:03 STOMACH Consultations 10/06/19 13:07 Consult Case Management - Discharge Planning Routine 10/06/19 14:26 ED Decision to Admit Stat 10/08/19 18:14 Consult Case Management - Discharge Planning Routine Ordered Studies 10/06/19 10:32 CT chest w con Stat Hospital Course (1) Pneumonia: Presented with fever at home, productive cough, malaise, with LLL infiltrate on CXR Community acquired pneumonia Occurred in setting of recent rib fracture BACKER UP eval - regular diet, thin liquids, aspiration precautions Remains afebrile, no leukocytosis, no significant hypoxia, not on O2 Improving Now completed 5 days of Rocephin and azithromycin - abx dc'd -continue IS, pain control for rib fracture -continue flutter valve -provided albuterol nebs - will give prn albuterol inhaler for dc - 4 days of 50 mg po prednisone for wheezing (2) Closed rib fracture: secondary to mechanical fall recently at home, fracture of left lateral 9th rib as well as small L2 endplate fracture on 10/01 tramadol made her nauseated and was dcd Pain controlled now -continue lidocaine patch to ribs -continue tylenol 1000mg po q8h scheduled -continue IS (3) Cardiac defibrillator in place: Prior cardiac arrest > 10 years ago ?2003. Resolved cardiomyopathy. (4) Dehydration: Resolved, IVF discontinued, eating and drinking well (5) Diabetes: HbA1C well controlled at 6.2% Holding glipizide while inpatient - resume for discharge Insulin correction factor, no carb coverage. BSG ACHS while inpatient (6) Urge incontinence of urine: Continue oxybutynin (7) Hypothyroid: Last TSH 0.136 in August , levothyroxine reduced from 175 to 150 at that time. Repeat TSH here is 1.29 (8) IPMN (intraductal papillary mucinous neoplasm): Suspected sidebranch from CT imaging as an incidental picker/puller. Suspect this can just be watched, recommend correlating with prior imaging. CT 10/06 additionally saw diffuse peripheral calcification of the pancreas suggests chronic pancreatitis - no abdominal complaints or tenderness, nausea or vomiting. Additionally CT reads small pericardial effusion - could consider echocardiogram outpatient but patient has not had any cardiac complaints/chest pain this admission - follow up with primary Follow up with pcp (9) CKD (chronic kidney disease) stage 3, GFR 30-59 ml/min: At baseline -avoid nephrotoxins, renally dose meds when appropriate (10) Hypercholesterolemia: continue statin (11) HTN (hypertension), benign: BPs remain elevated -increased lisinopril to 20mg daily -follow BPs (12) DVT prophylaxis: Heparin 5000 units Q12H SQ while inpatient (13) Discharge planning issues: PT/OT,recommending SNF--> to [facility] Total Time Total Time Spent Total Time Spent (In Minutes): greater than 30 minutes Discharge Plan Discharge Items Patient Disposition: Transfer Group Home Fac Reason For Visit: COMMUNITY AQUIRED PNEUMONIA Discharge Diagnosis: Community Acquired Pneumonia Condition on Discharge: Good Activity: Resume your previous activity Activity Comment: gradually as tolerated Non-emergency contact: Primary Care Provider Call non-emergency contact if: you have any medication questions and your symptoms worsen Follow-up/Referrals: Rome Castellanos MD [Primary Care Provider] - Diet: Regular Addtl Attending Provider Instructions: (1) Pneumonia: Presented with fever at home, productive cough, malaise, with left lower infiltrate on CXR Community acquired pneumonia BACKER UP eval - regular diet with thin liquids, aspiration precautions Occurred in setting of recent rib fracture after a mechanical fall on 10/01 Remains afebrile, no leukocytosis, no significant hypoxia, not on O2 Improving Now completed 5 days of Rocephin and azithromycin - will stop abx -continue IS, pain control for rib fracture -continue flutter valve -given albuterol nebs - will give albuterol inhaler for dc - Will give 4 days of 50 mg po prednisone for wheezing (2) Closed rib fracture and L2 small endplate fracture: secondary to mechanical fall at home 10/01, fracture of left lateral 9th rib tramadol made her nauseated and was dcd Pain controlled now -continue lidocaine patch to ribs -continue tylenol 1000mg po q8h scheduled -continue incentive spirometry (3) Cardiac defibrillator in place: Prior cardiac arrest > 10 years ago ?2003. Resolved cardiomyopathy. (4) Dehydration: Resolved, IVF discontinued, eating and drinking well (5) Diabetes: HbA1C well controlled at 6.2% Held glipizide while inpatient Insulin correction factor, no carb coverage. BSG ACHS. (6) Urge incontinence of urine: Continue oxybutynin (7) Hypothyroid: Last TSH 0.136 in August, levothyroxine reduced from 175 to 150 at that time. Repeat TSH here is 1.29 (8) IPMN (intraductal papillary mucinous neoplasm): Suspected side branch from CT imaging as an incidental picker/puller. Suspect this can just be watched, recommend correlating with prior imaging. Follow up with pcp (9) CKD (chronic kidney disease) stage 3, GFR 30-59 ml/min: At baseline -avoid nephrotoxins, renally dose meds when appropriate (10) Hypercholesterolemia: continue statin (11) HTN (hypertension), benign: BPs elevated at times 140 - 170 -increased lisinopril to 20mg daily -follow BPs Pending Studies at Discharge: No Stand-Alone Forms: My [facility] Skilled Items Patient informed of condition?: Yes DNR: Yes Discharge Level of Care: Skilled Communicable Disease: No Discharge Prognosis: Improving Lines: None Urinary Catheter: No Medications and DC Order Prescriptions: New prednisone 50 mg Tablet 50 mg PO DAILY Qty: 2 RF: 0 albuterol sulfate 90 mcg/actuation HFA aerosol inhaler 2 puffs INH Q4H Qty: 6.7 RF: 0 lidocaine 5 % Adhesive Patch,Medicated 1 patch transdermal QAM Qty: 14 RF: 0 acetaminophen 500 mg Tablet 1,000 mg PO Q8 Qty: 30 RF: 0 Continued levothyroxine 150 mcg tablet 150 mcg PO QAM RF: 0 ascorbic acid (vitamin C) 500 mg tablet 500 mg PO QAM RF: 0 oxybutynin chloride 5 mg tablet extended release 24hr 5 mg PO HS Qty: 30 RF: 11 (DME) OneTouch Ultra Blue Test Strip strip See Dose Instructions .ROUTE .MEDSUPPLY Qty: 10 RF: 0 (DME) lancets [OneTouch UltraSoft Lancets] [facility] See Dose Instructions .ROUTE .MEDSUPPLY Qty: 50 RF: 0 atorvastatin 40 mg Tablet 40 mg PO HS RF: 0 cyanocobalamin (vitamin B-12) [Vitamin B-12] 1,000 mcg Tablet 1,000 mcg PO QAM RF: 0 cholecalciferol (vitamin D3) [Vitamin D3] 2,000 unit Tablet 2,000 unit PO QAM RF: 0 glipizide 5 mg tablet 5 mg PO QAM RF: 0 tramadol 50 mg tablet 50 mg PO Q8H PRN (Reason: pain) Qty: 12 RF: 0 Changed lisinopril 10 mg tablet 20 mg PO QAM Qty: 90 RF: 3 Discharge Orders: Discharge Order (Routine); Ordered 10/12/19 Ordered By: Karin Xiao/Other Patient Handouts: A1C Admission Data Admit Date/Time: 10/06/19 13:05 Attending Provider: [facility] Admit Provider: Suleiman Dietz Primary Care Provider: Rome Castellanos Other Providers: [facility] ; [facility] Park Other Interventions: Discharge Summary Assessment (RN) Last Done: 10/12/19 16:06 Supervising Physician Co-Signing Physician Notes I supervised Karin Noriega NP on this patient's care. I examined the patient today independently of her. I discussed the plan of care with her with the plan being as written in her note except for any following changes/exceptions: None. Feels well. No major issues. Breathing comfortably. Very much wants to go to [facility].
== END 2019-10-12 17:15 ==
LOC: ED 10:05 → INTOOBSV 13:05 → SUATTDRO 13:05 → 2W 13:05

== ENCOUNTER 2020-10-28 12:45 | Observation (INO) ==
[2020-10-28] MEDS ORDERED: HYDROCODONE/ACETAMOPHEN 5/325MG TAB PO STA (13:07)
--- NOTE | 2020-10-28 13:33 | Emergency Department Note ---
Impression & Plan Acute back pain, Right-sided chest pain, Closed wedge compression fracture of T11 vertebra ED Provider Note INFORMANT: Patient ED PROVIDER(S): Dillon Knox MD CHIEF COMPLAINT: Back pain PLAN: Disposition: Admitted Condition: Good Outpatient prescription management: none Referral: None MEDICAL DECISION MAKING: Patient presented because of worsening back and right-sided chest/rib pain. The patient was given oral [place]. She wanted to try a pain pill stronger than her tramadol. Blood work was obtained and was unremarkable. The patient went for CT imaging of her chest, thoracic and lumbar spine. She was found to healing right-sided rib fractures. No pneumothorax or other pathology. Her spine imaging revealed a T11 wedge compression fracture. There are significant degen erative changes present throughout as well. Her prior surgery at T12 was noted. The patient was reassessed and was still having significant pain. She did not feel comfortable going home. I talked to the community case manager and she would require an inpatient admission and evaluation prior to consideration for rehabilitation. The patient was given dose of IV Dilaudid. Consultation was made with Dr. Amanda coombs of the hospitalist service. The patient was evaluated in the ER for further management. Triage Nursing notes reviewed and agree them. Additional history obtained from patient's daughter Prior medical records reviewed regarding her last visit and work-up. Patient had imaging of her head and cervical spine. These were negative. X-ray imaging of the chest and lumbar spine was negative for acute traumatic process. Vital Signs: reviewed and remarkable for no significant abnormalities Differential diagnosis: Fracture, subluxation, cardiac sources, dislocation, contusion, ligamentous injury, neurovascular, as well as other pathologies. Diagnostics interpreted by me: ECG: Twelve-lead ECG reveals a normal sinus rhythm at 76 bpm. There is low voltage QRS. Normal axis. No PVCs or PACs. No ST elevation or depression. Cardiac Monitoring: Cardiac monitoring ordered by me: The patient was placed on continuous cardiac monitoring and observed. It revealed a normal sinus rhythm at 69 beats per minute without ectopy or evidence of dysrhythmia. Imaging studies: CT scan of the chest, lumbar and thoracic spines as noted above. T11 compression fracture. Healing right-sided rib fractures. I refer you to the EMR for further details. HPI: The patient is a 85 year old female who presents to the Emergency Room with complaints of worsening right-sided chest pain and back pain. This started this week and is from a fall. The patient was in the ER and had a CT scan of her head and C-spine done. Those were negative. X-ray imaging of her lumbar spine and chest were also performed and they were negative. She was prescribed tramadol. She has been using this but it has been unsuccessful. She rates her current pain is a 10 out of 10. She notes it is in the upper lumbar as well as the thoracic spine. She also has pain in the right ribs that is tender to palpation. She did suffer a minor contusion of her left jaffe and right foot but those are not an issue today. Pt denies LOC, headache, fevers, chills, diaphoresis, visual changes, neck pain, breathing difficulties, nausea, vomiting, abdominal pain, melena, hematochezia, urinary symptoms, numbness, weakness, lymphadenopathy, rash, or other complaints. ROS: See above HPI for pertinent positives & negatives. A total of 10 systems reviewed and were otherwise negative. PAST MEDICAL HISTORY:See Below , hypertension, diabetes PAST SURGICAL HISTORY:See Below, FAMILY HISTORY:See Below SOCIAL HISTORY:See Below, no alcohol HOME MEDICATIONS:See Below ALLERGIES:See Below VITALS:See Below PHYSICAL EXAMINATION: GENERAL: Awake, alert, well-appearing, in no distress HENT: Normocephalic, atraumatic. Oropharynx unremarkable. EYES: Normal conjunctiva. Sclera non-icteric. NECK: Inspection normal. Non-tender. Supple. No nuchal rigidity. FROM. No mas ses. RESPIRATORY: Clear to auscultation. No wheezes. No rales. Normal respiratory effort. CARDIAC: Normal rate. Normal rhythm. No murmurs. No rubs. Extremities warm and well perfused. Pulses equal. No JVD. GI: Soft, non-distended. No tenderness to palpation. No rebound or guarding. No masses. RECTAL: Deferred. MUSCULOSKELETAL: Minor contusion noted of the left jaffe. Chest examination reveals significant right anterolateral rib tenderness. The back is symmetrical on inspection without obvious abnormality. There is upper lumbar and lower midline spine tenderness. No step-off noted. There is no CVA tenderness to palpation. No joint edema. LOWER EXTREMITIES: Calves are equal size bilaterally and non-tender. No edema. No discoloration. NEURO: Normal sensorium. No sensory or motor deficits noted. SKIN: No rash or jaundice noted. Dillon Knox MD Past Med/Surg History Medical History Anemia Cardiac defibrillator in place Cardiomyopathy Carotid artery stenosis Chronic pancreatitis CKD (chronic kidney disease) stage 3, GFR 30-59 ml/min Degenerative joint disease (DJD) of hip Diabetes mellitus, type 2 Diabetic nephropathy Diabetic peripheral neuropathy Diverticulitis Diverticulosis of colon Duodenal ulcer GERD (gastroesophageal reflux disease) GERD without esophagitis HLD (hyperlipidemia) HTN (hypertension), benign Hypercholesterolemia Hypothyroid IBS (irritable bowel syndrome) ICD (implantable cardioverter-defibrillator) battery depletion Insomnia Lumbar canal stenosis Lumbar spondylosis Nocturia Nonischemic cardiomyopathy Osteoarthritis Osteoporosis Presence of cardiac pacemaker Pulmonary nodule Rib fracture 09/17/18 R/T FALL. D/C'D TO [facility]. Scaphoid fracture of wrist Urge incontinence of urine Vitamin D deficiency, unspecified Surgical History History of cardiac cath PER PT, 5-10 YEARS AGO AT [facility] - REASON? - NO STENTS/ANGIOPLASTY History of cholecystectomy History of colonoscopy History of ERCP w/ sphincterotomy & CBD stent History of esophagogastroduodenoscopy (EGD) History of vertebroplasty T12 S/P appendectomy S/P hysterectomy S/P ICD (internal cardiac defibrillator) procedure Biventricular AICD placed in 2007, Generator Change-out 02/15/2020 -- now has a [employer] Claria MRI DIRECTOR SCRIPT-D Bi-V AICD. S/P kyphoplasty S/P partial colectomy S/P rotator cuff surgery Family History Son Diabetes Sister Breast cancer Denies family history of Ovarian cancer Prostate cancer Hearing loss No family history of adverse response to anesthesia No family history of bleeding disorder Heart disease Allergies Myocardial infarction Colorectal cancer Cancer Hypertension Stroke Asthma Social History Smoking Status: Never smoker Second Hand Exposure: No; Hx Alcohol Use: No Hx Substance Use: No Preferred Language: Spanish Communication Ability: Effective Visual Impairment: No Limitations Hearing Ability: Normal 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 Beliefs That Will Affect Care: None marital status: Current Living Situation: Spouse current occupational status: retired current occupation: retired from career with [employer] How many Children do You have: 4 Feels Safe at Home: Yes Childhood Exposure to Second-Hand Smoke: No Dental Care, Regularly: No Physical Activity Frequency: Does not Exercise Seatbelt Use: always Sunscreen Use: No Assistive Devices: Cane, Denture - Upper and Denture - Lower Allergies Allergies Allergy/AdvReac Type Severity Reaction Status Date / Time celecoxib Allergy Severe SX OF Verified 10/28/20 14:19 STROKE, FACIAL NUMBNESS, UNABLE TO SPEAK fesoterodine [From Toviaz] Allergy Unknown Unknown Verified 10/28/20 14:19 solifenacin [From Vesicare] Allergy Unknown Unknown Verified 10/28/20 14:19 morphine AdvReac Intermediate Confusion Verified 10/28/20 14:19 ciprofloxacin AdvReac Mild UPSET Verified 10/28/20 14:19 STOMACH metronidazole AdvReac Mild N/V Verified 10/28/20 14:19 Home Meds Home Medications Medication Instructions Recorded Confirmed cholecalciferol (vitamin D3) 2,000 unit PO QAM 08/05/18 10/28/20 [Vitamin D3] cyanocobalamin (vitamin B-12) 1,000 mcg PO QAM 08/05/18 10/28/20 [Vitamin B-12] ascorbic acid (vitamin C) 500 mg 500 mg PO QAM tab 02/26/19 10/28/20 tablet aspirin 81 mg tablet,delayed 81 mg PO QAM 08/21/20 10/28/20 release ferrous sulfate 325 mg (65 mg 325 mg PO QAM 08/21/20 10/28/20 iron) tablet multivit with 1 tab PO QAM 08/21/20 10/28/20 xipfqekd-[id number]-QF-lutein 8 mg iron-400 mcg-300 mcg tablet vitamin A 0 unit PO QAM 10/28/20 10/28/20 vitamin E 0 unit PO QAM 10/28/20 10/28/20 Previous Rx's Medication Instructions Recorded levothyroxine 150 mcg tablet 150 mcg PO QAM #90 tab 12/07/19 atorvastatin 40 mg tablet 40 mg PO HS #90 tab 02/21/20 pantoprazole 40 mg tablet,delayed 40 mg PO QAM #30 tab 05/15/20 release OneTouch Ultra Blue Test Strip #300 ea NS 05/18/20 gabapentin 300 mg capsule 600 mg PO HS #60 cap 09/05/20 oxybutynin chloride 5 mg 5 mg PO HS #30 tab 09/05/20 tablet,extended release 24 hr ipratropium bromide 0.03 % nasal 2 spray INTRANASAL BID PRN #30 ml 09/20/20 spray tramadol 50 mg PO BID PRN #11 tab 10/26/20 Results & Data (ED) Vital Signs Vital Signs - 24 hr 10/28/20 12:47 10/28/20 13:18 10/28/20 13:24 Temperature 36.6 C Temperature Source Oral Pulse Rate 84 78 77 Pulse Rate from SpO2 Sensor 77 Respiratory Rate 20 16 23 Respiratory Effort / Characteristics Non-Labored Spontaneous Respiratory Depth Normal Blood Pressure 157/108 H Blood Pressure Mean 124 Pulse Oximetry 92 92 90 Oxygen Delivery Method Room Air Room Air Oxygen Flow Rate Sepsis Recent Fever Within 48 Hours No Sepsis New/Unexplained Change in Mental Status N/A Sepsis Action Taken by Nursing No Action Required 10/28/20 13:30 10/28/20 13:40 10/28/20 13:56 Temperature Temperature Source Pulse Rate 72 73 73 Pulse Rate from SpO2 Sensor 74 73 73 Respiratory Rate 18 15 13 Respiratory Effort / Characteristics Respiratory Depth Blood Pressure Blood Pressure Mean Pulse Oximetry 91 90 94 Oxygen Delivery Method Oxygen Flow Rate Sepsis Recent Fever Within 48 Hours Sepsis New/Unexplained Change in Mental Status Sepsis Action Taken by Nursing 10/28/20 13:58 10/28/20 14:00 10/28/20 14:10 Temperature Temperature Source Pulse Rate 74 70 73 Pulse Rate from SpO2 Sensor 72 71 73 Respiratory Rate 19 17 17 Respiratory Effort / Characteristics Respiratory Depth Blood Pressure 158/94 H Blood Pressure Mean 115 Pulse Oximetry 93 91 90 Oxygen Delivery Method Oxygen Flow Rate Sepsis Recent Fever Within 48 Hours Sepsis New/Unexplained Change in Mental Status Sepsis Action Taken by Nursing 10/28/20 14:20 10/28/20 14:30 10/28/20 14:40 Temperature Temperature Source Pulse Rate 73 73 74 Pulse Rate from SpO2 Sensor 74 73 75 Respiratory Rate 18 19 14 Respiratory Effort / Characteristics Respiratory Depth Blood Pressure Blood Pressure Mean Pulse Oximetry 90 93 91 Oxygen Delivery Method Oxygen Flow Rate Sepsis Recent Fever Within 48 Hours Sepsis New/Unexplained Change in Mental Status Sepsis Action Taken by Nursing 10/28/20 14:50 10/28/20 15:00 10/28/20 15:05 Temperature Temperature Source Pulse Rate 74 74 81 Pulse Rate from SpO2 Sensor 74 74 80 Respiratory Rate 13 14 22 Respiratory Effort / Characteristics Respiratory Depth Blood Pressure 151/117 H Blood Pressure Mean 128 Pulse Oximetry 90 87 L 92 Oxygen Delivery Method Oxygen Flow Rate Sepsis Recent Fever Within 48 Hours Sepsis New/Unexplained Change in Mental Status Sepsis Action Taken by Nursing 10/28/20 15:10 10/28/20 15:20 10/28/20 15:21 Temperature Temperature Source Pulse Rate 71 71 71 Pulse Rate from SpO2 Sensor 72 71 70 Respiratory Rate 18 16 24 Respiratory Effort / Characteristics Respiratory Depth Blood Pressure 149/89 H Blood Pressure Mean 109 Pulse Oximetry 92 91 95 Oxygen Delivery Method Oxygen Flow Rate Sepsis Recent Fever Within 48 Hours Sepsis New/Unexplained Change in Mental Status Sepsis Action Taken by Nursing 10/28/20 15:28 10/28/20 15:30 10/28/20 15:40 Temperature Temperature Source Pulse Rate 71 72 Pulse Rate from SpO2 Sensor 71 72 Respiratory Rate 20 16 Respiratory Effort / Characteristics Respiratory Depth Blood Pressure Blood Pressure Mean Pulse Oximetry 96 96 96 Oxygen Delivery Method Nasal Cannula Oxygen Flow Rate 2 Sepsis Recent Fever Within 48 Hours Sepsis New/Unexplained Change in Mental Status Sepsis Action Taken by Nursing 10/28/20 15:50 10/28/20 16:00 10/28/20 16:10 Temperature Temperature Source Pulse Rate 69 73 73 Pulse Rate from SpO2 Sensor 70 74 72 Respiratory Rate 23 20 16 Respiratory Effort / Characteristics Respiratory Depth Blood Pressure Blood Pressure Mean Pulse Oximetry 96 95 96 Oxygen Delivery Method Oxygen Flow Rate Sepsis Recent Fever Within 48 Hours Sepsis New/Unexplained Change in Mental Status Sepsis Action Taken by Nursing 10/28/20 16:20 10/28/20 16:25 Temperature Temperature Source Pulse Rate 70 69 Pulse Rate from SpO2 Sensor 71 70 Respiratory Rate 21 14 Respiratory Effort / Characteristics Respiratory Depth Blood Pressure 163/76 H Blood Pressure Mean 105 Pulse Oximetry 96 98 Oxygen Delivery Method Oxygen Flow Rate Sepsis Recent Fever Within 48 Hours Sepsis New/Unexplained Change in Mental Status Sepsis Action Taken by Nursing Laboratory Data Result diagrams: 10/28/20 13:30 10/28/20 14:58 Lab Results 10/28/20 10/28/20 10/28/20 Range/Units 13:30 13:30 14:58 WBC 9.43 (4.8-10.8) K/uL RBC 4.40 (4.2-5.4) M/uL Hgb 14.8 (12.0-16.0) g/dL Hct 44.1 (37-47) % MCV 100.2 H (80-100) fL MCH 33.6 (25-34) pg MCHC 33.6 (32-36) g/dL RDW Std Deviation 48.9 H (36.4-46.3) fL RDW Coeff of Radha 13.3 (11.5-14.5) % Plt Count 180 (130-400) K/uL MPV 10.7 H (7.4-10.4) fL Immature Gran % (Auto) 0.1 % Neut % (Auto) 68.0 % Lymph % (Auto) 17.3 % [place] % (Auto) 12.8 % Eos % (Auto) 1.8 % Baso % (Auto) 0.0 % Neut # (Auto) 6.41 (1.4-6.5) K/uL Lymph # (Auto) 1.63 (1.2-3.4) K/uL [place] # (Auto) 1.21 H (0.11-0.59) K/uL Eos # (Auto) 0.17 (0-0.5) K/uL Baso # (Auto) 0.00 (0-0.2) K/uL Immature Gran # (Auto) 0.01 (0.00-0.02) K/uL Sodium 138 (136-145) mmol/L Potassium 4.2 (3.5-5.1) mmol/L Chloride 103 (98-107) mmol/L Carbon Dioxide 27 (21-32) mmol/L Anion Gap 8.0 (3-11) BUN 17 (7-18) mg/dl Creatinine 1.15 (0.6-1.2) mg/dl Est Cr Clr Drug Dosing 29.8 ml/min Est GFR ( Amer) 49.5 Est GFR (Non-Af Amer) 42.7 BUN/Creatinine Ratio 14.8 (10-20) Glucose 107 H (70-99) mg/dl Calcium 9.2 (8.5-10.1) mg/dl Total Bilirubin 1.3 H (0.2-1) mg/dl AST 21 (15-37) U/L ALT 22 (12-78) U/L Alkaline Phosphatase 91 (45-117) U/L Troponin I < 0.015 (0-0.045) ng/ml Total Protein 7.4 (6.4-8.2) gm/dl Albumin 3.3 L (3.4-5.0) gm/dl Globulin 4.1 H (2.5-4.0) gm/dl Albumin/Globulin Ratio 0.8 L (0.9-2) Urine Color Urine Appearance (Clear) Urine pH (4.5-7.5) Ur Specific [place] (1.000-1.030) Urine Protein (Negative) Urine Glucose (UA) (Negative) Urine Ketones (Negative) Urine Blood (Negative) Urine Nitrite (Negative) Urine Bilirubin (Negative) Urine Urobilinogen (Negative) Ur Leukocyte Esterase (Negative) Urine WBC (Auto) (0-5) /hpf Urine RBC (Auto) (0-4) /hpf U Hyaline Cast (Auto) (0-5) /lpf U Epithel Cells (Auto) (0-5) /lpf Urine Bacteria (Auto) (Negative) COVID-19 Eval Order SARS-CoV-2, RNA, NAAT (NEGATIVE) 10/28/20 10/28/20 10/28/20 Range/Units 15:26 15:45 15:45 WBC (4.8-10.8) K/uL RBC (4.2-5.4) M/uL Hgb (12.0-16.0) g/dL Hct (37-47) % MCV (80-100) fL MCH (25-34) pg MCHC (32-36) g/dL RDW Std Deviation (36.4-46.3) fL RDW Coeff of Radha (11.5-14.5) % Plt Count (130-400) K/uL MPV (7.4-10.4) fL Immature Gran % (Auto) % Neut % (Auto) % Lymph % (Auto) % [place] % (Auto) % Eos % (Auto) % Baso % (Auto) % Neut # (Auto) (1.4-6.5) K/uL Lymph # (Auto) (1.2-3.4) K/uL [place] # (Auto) (0.11-0.59) K/uL Eos # (Auto) (0-0.5) K/uL Baso # (Auto) (0-0.2) K/uL Immature Gran # (Auto) (0.00-0.02) K/uL Sodium (136-145) mmol/L Potassium (3.5-5.1) mmol/L Chloride (98-107) mmol/L Carbon Dioxide (21-32) mmol/L Anion Gap (3-11) BUN (7-18) mg/dl Creatinine (0.6-1.2) mg/dl Est Cr Clr Drug Dosing ml/min Est GFR ( Amer) Est GFR (Non-Af Amer) BUN/Creatinine Ratio (10-20) Glucose (70-99) mg/dl Calcium (8.5-10.1) mg/dl Total Bilirubin (0.2-1) mg/dl AST (15-37) U/L ALT (12-78) U/L Alkaline Phosphatase (45-117) U/L Troponin I (0-0.045) ng/ml Total Protein (6.4-8.2) gm/dl Albumin (3.4-5.0) gm/dl Globulin (2.5-4.0) gm/dl Albumin/Globulin Ratio (0.9-2) Urine Color Yellow Urine Appearance Cloudy A (Clear) Urine pH 6.5 (4.5-7.5) Ur Specific [place] 1.018 (1.000-1.030) Urine Protein Trace H (Negative) Urine Glucose (UA) Negative (Negative) Urine Ketones Trace H (Negative) Urine Blood Negative (Negative) Urine Nitrite Negative (Negative) Urine Bilirubin Negative (Negative) Urine Urobilinogen Negative (Negative) Ur Leukocyte Esterase Trace H (Negative) Urine WBC (Auto) 5-10 H (0-5) /hpf Urine RBC (Auto) 10-30 H (0-4) /hpf U Hyaline Cast (Auto) 1-5 (0-5) /lpf U Epithel Cells (Auto) >30 H (0-5) /lpf Urine Bacteria (Auto) 1+ H (Negative) COVID-19 Eval Order Covid19 IDNow [facility] SARS-CoV-2, RNA, NAAT NEGATIVE (NEGATIVE) Administered Medications Discontinued Medications Hydrocodone Bitart/Acetaminophen (Hydrocodone/Acetamophen 5/325mg Tab) 1 tab PO NOW STA Stop: 10/28/20 13:08 Last Admin: 10/28/20 13:42 Dose: 1 tab Documented by: [id number] Hydromorphone HCl (Hydromorphone Inj 0.5 Mg/0.5 Ml Syr) 0.25 mg IV NOW STA Stop: 10/28/20 15:16 Last Admin: 10/28/20 15:21 Dose: 0.25 mg Documented by: [id number] Discharge Plan Visit Data Chief Complaint: Fall Stated Complaint: fall ED Provider: Dillon Knox Discharge Problem: Acute back pain, Right-sided chest pain, Closed wedge compression fracture of T11 vertebra Forms Stand Alone Forms: My [facility]5 Prescriptions Prescriptions: No Action levothyroxine 150 mcg tablet 150 mcg PO QAM Qty: 90 RF: 3 atorvastatin 40 mg tablet 40 mg PO HS Qty: 90 RF: 3 pantoprazole 40 mg tablet,delayed release (DR/EC) 40 mg PO QAM Qty: 30 RF: 11 (DME) blood sugar diagnostic [OneTouch Ultra Blue Test Strip] Strip See Rx Instructions .ROUTE .MEDSUPPLY Qty: 300 RF: 3 gabapentin 300 mg capsule 600 mg PO HS Qty: 60 RF: 5 oxybutynin chloride 5 mg tablet extended release 24hr 5 mg PO HS Qty: 30 RF: 11 ascorbic acid (vitamin C) 500 mg tablet 500 mg PO QAM RF: 0 ferrous sulfate [FeroSul] 325 mg (65 mg iron) tablet 325 mg PO QAM RF: 0 Centrum Silver Women 8 mg iron-400 mcg-300 mcg tablet 1 tab PO QAM RF: 0 aspirin [Adult Low Dose Aspirin] 81 mg tablet,delayed release (DR/EC) 81 mg PO QAM RF: 0 ipratropium bromide 0.03 % spray,non-aerosol 2 spray intranasal BID PRN (Reason: drainage ) Qty: 30 RF: 2 cyanocobalamin (vitamin B-12) [Vitamin B-12] 1,000 mcg Tablet 1,000 mcg PO QAM RF: 0 cholecalciferol (vitamin D3) [Vitamin D3] 2,000 unit Tablet 2,000 unit PO QAM RF: 0 tramadol 50 mg tablet 50 mg PO BID PRN (Reason: pain) Qty: 11 RF: 0 vitamin A 8,000 unit Capsule 0 unit PO QAM RF: 0 vitamin E 100 unit Capsule 0 unit PO QAM RF: 0
[2020-10-28 13:43] LABS: Eosinophils # (auto) 0.17 K/uL (0-0.5); Eosinophils % (auto) 1.8 %; Hematocrit (blood only) 44.1 % (37-47); Hemoglobin 14.8 g/dL (12.0-16.0); Immature Granulocytes # (auto) 0.01 K/uL (0.00-0.02); Immature Granulocytes % (auto) 0.1 %; Lymphocytes # (auto) 1.63 K/uL (1.2-3.4); Lymphocytes % (auto) 17.3 %; Mean Corpuscular Hemoglobin 33.6 pg (25-34); Mean Corpuscular Hgb Conc 33.6 g/dL (32-36); Mean Corpuscular Volume 100.2 fL (80-100); Mean Platelet Volume 10.7 fL (7.4-10.4); Monocytes # (auto) 1.21 K/uL (0.11-0.59); Monocytes % (auto) 12.8 %; Neutrophils # (auto) 6.41 K/uL (1.4-6.5); Platelet Count 180 K/uL (130-400); RDW Coefficient of Variation 13.3 % (11.5-14.5); RDW Standard Deviation 48.9 fL (36.4-46.3); White Blood Count 9.43 K/uL (4.8-10.8)
--- NOTE | 2020-10-28 14:11 | CT Scan Report ---
THORACIC SPINE CT, LUMBAR SPINE CT CT DOSE: 907.06 mGy.cm HISTORY: Back pain. fall TECHNIQUE: Multiaxial CT images of the thoracic and lumbar spine were performed and reformatted in th e sagittal and coronal plane without the use of contrast. A dose lowering technique was utilized adh ering to the principles of ALARA. COMPARISON: Chest CT 03/13/2020. Lumbar spine CT 10/01/2019. FINDINGS: Thoracic spine CT: There is an acute mild superior endplate compression fracture at T11. This results in minimal anterior wedging. T12 vertebroplasty is again noted. Severe disc space narrowing at T7-T8 . Mild to moderate degenerative changes throughout the remaining thoracic spine. Lucency through the superior endplate osteophyte at T8 is likely chronic. Mild S-shaped scoliosis of the thoracolumbar sp ine. Lumbar spine CT: No fractures within the lumbar spine. There is 3 mm of retrolisthesis of L2 on L3. T here are severe disc space narrowing at L2-L3 and L3-L4. Moderate to severe facet degenerative change s throughout the lumbar spine. The visualized sacrum appears intact. Evidence for chronic pancreatiti s. Pneumobilia, unchanged. Old, healed right L2 transverse process fracture. IMPRESSION: 1. An acute mild superior endplate compression fracture at T11 resulting in minimal anterior wedging. No associated retropulsion. 2. No acute fractures within the lumbar spine. 3. T12 vertebroplasty is again noted. 4. Degenerative changes and scoliosis as described above. ACT 112: Negative or not required by law. Electronically signed by: Kranthi Mena M.D. 10/28/2020 2:10 PM
[2020-10-28 14:16] LABS: Alanine Aminotransferase 22 U/L (12-78); Albumin Globulin Ratio 0.8 (0.9-2); Albumin Level 3.3 gm/dl (3.4-5.0); Alkaline Phosphatase 91 U/L (45-117); BUN Creatinine Ratio 14.8 (10-20); Bilirubin,Total 1.3 mg/dl (0.2-1); Blood Urea Nitrogen 17 mg/dl (7-18); Calcium 9.2 mg/dl (8.5-10.1); Carbon Dioxide 27 mmol/L (21-32); Chloride 103 mmol/L (98-107); Creatinine Clr Calc Pharmacy 29.8 ml/min; Est GFR (African American) 49.5; Est GFR (Non-African American) 42.7; Globulin 4.1 gm/dl (2.5-4.0); Glucose 107 mg/dl (70-99); Sodium 138 mmol/L (136-145); Total Protein 7.4 gm/dl (6.4-8.2); Troponin I < 0.015 ng/ml (0-0.045)
--- NOTE | 2020-10-28 14:18 | CT Scan Report ---
CT chest diagnostic wo con CT DOSE: HISTORY: right chest pain, fall TECHNIQUE: Multiaxial CT images of the chest were performed without contrast. A dose lowering techni que was utilized adhering to the principles of ALARA. COMPARISON: Chest CT 03/13/2020. FINDINGS: Severe osteoarthritis within the bilateral shoulders. There is a moderate to large left gle nohumeral joint effusion. This remains unchanged. T11 superior endplate acute compression fracture is again noted. This results in minimal anterior wedging. No associated retropulsion. Left-sided pacema ker. A few old, healed right anterior rib fractures. No acute rib fractures identified. No pneumothor ax. The central airways are patent. Punctate calcified granuloma within the right middle lobe. Trace right pleural effusion. A few bilateral lower lobe linear densities favor atelectasis. Limited views of the upper abdomen demonstrate a normal spleen and adrenal glands. Pneumobilia, unchanged. Chronic pancreatitis is again noted. Normal esophagus. No used on a hematoma. Normal caliber thoracic aorta w ith moderate calcified plaque. Stable mediastinal lymph nodes. No hilar lymphadenopathy. The heart is normal in size. Postoperative changes seen within the right breast. No axillary lymphadenopathy. IMPRESSION: 1. An acute mild superior endplate compression fracture at T11. 2. Trace right pleural effusion. 3. A few bibasilar densities favor atelectasis. 4. Old, healed right-sided rib fractures. No acute rib fractures. No pneumothorax. 5. Advanced degenerative changes within the bilateral shoulders with a moderate to large left joint e ffusion. This remains unchanged. ACT 112: Negative or not required by law. Electronically signed by: Kranthi Mena M.D. 10/28/2020 2:17 PM
[2020-10-28] MEDS ORDERED: HYDROmorphone INJ 0.5 MG/0.5 ML SYR IV STA (15:15)
[2020-10-28 15:23] LABS: Potassium 4.2 mmol/L (3.5-5.1)
[2020-10-28 15:47] LABS: Appearance Urine Cloudy (Clear); Bacteria Urine Automated 1+ (Negative); Bilirubin Urine Negative (Negative); Blood Urine Negative (Negative); Color Urine Yellow; Epithelial Cell Urine Auto >30 /lpf (0-5); Glucose Urine UA Negative (Negative); Ketones Urine Trace (Negative); Leukocyte Esterase Urine Trace (Negative); Nitrite Urine Negative (Negative); Protein Urine Trace (Negative); Specific Gravity Urine 1.018 (1.000-1.030); Urobilinogen Urine Negative (Negative); pH Urine 6.5 (4.5-7.5)
[2020-10-28] MEDS: LIDOCAINE 5% 1 PATCH TD SCH (19:43)
[2020-10-28] MEDS: traMADol HCL 50 MG TABLET PO PRN (19:43)
[2020-10-28] MEDS: ACETAMINOPHEN 500 MG TAB PO SCH (21:02)
[2020-10-28] MEDS: OXYBUTYNIN CHLORIDE XL 5 MG TABCR PO SCH (21:02)
[2020-10-28] MEDS: ATORVASTATIN 40 MG TAB PO SCH (21:02)
[2020-10-28] MEDS: GABAPENTIN 600 MG TAB PO SCH (21:19)
[2020-10-29] MEDS: LEVOTHYROXINE SODIUM 150 MCG TABLET PO SCH (05:33)
[2020-10-29] MEDS: traMADol HCL 50 MG TABLET PO PRN ×4 (08:12→22:38)
[2020-10-29] MEDS: ASPIRIN 81 MG ECTAB PO SCH (08:13)
[2020-10-29] MEDS: LIDOCAINE 5% 1 PATCH TD SCH (08:13)
[2020-10-29] MEDS: PANTOprazole 40 MG TAB PO SCH (08:13)
[2020-10-29] MEDS: ASCORBIC ACID 500 MG TAB PO SCH (08:14)
[2020-10-29] MEDS: CEROVITE ADV FORMULA TAB PO SCH (08:14)
[2020-10-29] MEDS: CHOLECALCIFEROL 1,000 UNITS 25 MCG TAB PO SCH (08:14)
[2020-10-29] MEDS: FERROUS SULFATE 325 MG TAB PO SCH (08:14)
[2020-10-29] MEDS: CYANOCOBALAMIN 500 MCG TABLET (VITAMIN B-12) PO SCH (08:14)
[2020-10-29] MEDS: ACETAMINOPHEN 500 MG TAB PO SCH ×3 (08:14→20:37)
--- NOTE | 2020-10-29 08:24 | History & Physical Report ---
Date of Service October 28, 2020 Assessment & Plan (1) Closed wedge compression fracture of T11 vertebra: Continue acetaminophen but increase to 1g TID Tramadol q4h 50mg PO PRN - patient reports it was helping to myself. TLSO brace for any movement Lidocaine patch Continue on her usual gabapentin. (2) Fall: Appears to be mechanical but possible peripheral neuropathy contributing. (3) Right-sided chest pain: Suspect MSK secondary to her T11 fracture. No worse on inspiration and reproducible on palpation. (4) Hypothyroidism: TSH WNL in August. No need to repeat this. Continue levothyroxine 150 mcg PO daily (5) Mixed stress and urge incontinence: Continue oxybutynin 5mg PO HS Admission and Anticipated Discharge Date Admission Date: October 28, 2020 History of Present Illness Chief Complaint: Back/rib pain Primary Care Provider: Adriano Castellanos MD Katty Reynolds is an 85 year old female who presents to the ER with right sided rib and back pain. She was previously seen for the same in the Emergency room 2 days ago after tripping over her cat when getting up from her chair and landing on a coffee table. 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 She reports the pain is 0/10 at rest but painful on any movement or palpation. T11 level in back and right lateral ribs without radiation. Pain 10/10 on movement in ER. In the ER, repeat imaging with CT showed an acute T11 fracture. She denies any new trauma. She was referred to medicine for admission and ongoing management as she felt she would be unable to go home with her current pain and unable to admit her to inpatient rehabilitation in the ER. Allergies Allergy/AdvReac Type Severity Reaction Status Date / Time celecoxib Allergy Severe SX OF Verified 10/28/20 14:19 STROKE, FACIAL NUMBNESS, UNABLE TO SPEAK fesoterodine [From Toviaz] Allergy Unknown Unknown Verified 10/28/20 14:19 solifenacin [From Vesicare] Allergy Unknown Unknown Verified 10/28/20 14:19 morphine AdvReac Intermediate Confusion Verified 10/28/20 14:19 ciprofloxacin AdvReac Mild UPSET Verified 10/28/20 14:19 STOMACH metronidazole AdvReac Mild N/V Verified 10/28/20 14:19 Home Medications Medication Instructions Recorded Confirmed Type cholecalciferol (vitamin D3) 2,000 unit PO QAM 08/05/18 10/28/20 History [Vitamin D3] cyanocobalamin (vitamin B-12) 1,000 mcg PO QAM 08/05/18 10/28/20 History [Vitamin B-12] ascorbic acid (vitamin C) 500 mg 500 mg PO QAM tab 02/26/19 10/28/20 History tablet levothyroxine 150 mcg tablet 150 mcg PO QAM #90 tab 12/07/19 10/28/20 Rx atorvastatin 40 mg tablet 40 mg PO HS #90 tab 02/21/20 10/28/20 Rx pantoprazole 40 mg tablet,delayed 40 mg PO QAM #30 tab 05/15/20 10/28/20 Rx release OneTouch Ultra Blue Test Strip #300 ea NS 05/18/20 10/16/20 Rx aspirin 81 mg tablet,delayed 81 mg PO QAM 08/21/20 10/28/20 History release ferrous sulfate 325 mg (65 mg 325 mg PO QAM 08/21/20 10/28/20 History iron) tablet multivit with 1 tab PO QAM 08/21/20 10/28/20 History yilgqbbw-diuu-AP-lutein 8 mg iron-400 mcg-300 mcg tablet gabapentin 300 mg capsule 600 mg PO HS #60 cap 09/05/20 10/28/20 Rx oxybutynin chloride 5 mg 5 mg PO HS #30 tab 09/05/20 10/28/20 Rx tablet,extended release 24 hr ipratropium bromide 0.03 % nasal 2 spray INTRANASAL BID PRN #30 ml 09/20/20 10/28/20 Rx spray tramadol 50 mg PO BID PRN #11 tab 10/26/20 10/28/20 Rx vitamin A 0 unit PO QAM 10/28/20 10/28/20 History vitamin E 0 unit PO QAM 10/28/20 10/28/20 History Past Med/Surg History Medical History Anemia Cardiac defibrillator in place Cardiomyopathy Carotid artery stenosis Chronic pancreatitis CKD (chronic kidney disease) stage 3, GFR 30-59 ml/min Degenerative joint disease (DJD) of hip Diabetes mellitus, type 2 Diabetic nephropathy Diabetic peripheral neuropathy Diverticulitis Diverticulosis of colon Duodenal ulcer GERD (gastroesophageal reflux disease) GERD without esophagitis HLD (hyperlipidemia) HTN (hypertension), benign Hypercholesterolemia Hypothyroid IBS (irritable bowel syndrome) ICD (implantable cardioverter-defibrillator) battery depletion Insomnia Lumbar canal stenosis Lumbar spondylosis Nocturia Nonischemic cardiomyopathy Osteoarthritis Osteoporosis Presence of cardiac pacemaker Pulmonary nodule Rib fracture 09/17/18 R/T FALL. D/C'D TO [facility]. Scaphoid fracture of wrist Urge incontinence of urine Vitamin D deficiency, unspecified Surgical History History of cardiac cath PER PT, 5-10 YEARS AGO AT [facility] - REASON? - NO STENTS/ANGIOPLASTY History of cholecystectomy History of colonoscopy History of ERCP w/ sphincterotomy & CBD stent History of esophagogastroduodenoscopy (EGD) History of vertebroplasty T12 S/P appendectomy S/P hysterectomy S/P ICD (internal cardiac defibrillator) procedure Biventricular AICD placed in 2007, Generator Change-out 02/15/2020 -- now has a Jibestream MRI OVERSIZE LOAD PILOT ESCORT-D Bi-V AICD. S/P kyphoplasty S/P partial colectomy S/P rotator cuff surgery Family History Son Diabetes Sister Breast cancer Denies family history of Ovarian cancer Prostate cancer Hearing loss No family history of adverse response to anesthesia No family history of bleeding disorder Heart disease Allergies Myocardial infarction Colorectal cancer Cancer Hypertension Stroke Asthma Social History Smoking Status: Never smoker Second Hand Exposure: No; Do You Dip or Chew Tobacco: No; Hx Alcohol Use: No Hx Substance Use: No Preferred Language: Hungarian Communication Ability: Effective Visual Impairment: No Limitations Hearing Ability: Normal Gin Inspector Required: No Beliefs That Will Affect Care: None marital status: Current Living Situation: Spouse current occupational status: retired current occupation: retired from career with [employer] How many Children do You have: 4 Other Information That Helps Us Care for You: No Feels Safe at Home: Yes Childhood Exposure to Second-Hand Smoke: No Dental Care, Regularly: No Physical Activity Frequency: Does not Exercise Seatbelt Use: always Sunscreen Use: No Assistive Devices: Walker Review of Systems Review of Systems: All systems reviewed & are unremarkable except as noted in HPI & below Physical Exam Constitutional: well developed and well nourished; no acute distress Eyes: PERRL, conjunctivae normal, anicteric sclerae ENMT: external ear and nose normal, oropharynx normal Neck: trachea midline Respiratory: normal respiratory effort, lungs clear to auscultation Cardiovascular: RRR, no murmur, no edema Chest (Breasts): Chest: + abnormal inspection of chest (palpation over 10th- 11th right lateral rib painful) Gastrointestinal (Abdomen): normal bowel sounds, soft, nontender, no hepatosplenomegaly Musculoskeletal: Spine: + pain with thoraco-lumbar ROM, + thoracic spinal tenderness (Approximately T11) and + paraspinal tenderness Skin: no rashes, warm and dry Neurologic: moves all extremities and awake; no focal motor deficits and not confused Speech / Cognition: normal speech Motor/Sensory: no pronator drift and no sensory deficit Psychiatric: A+Ox3, euthymic affect Results & Data Results & Data ([facility]) Vital Signs (Past 12 Hours) Vital Signs Temp Pulse Pulse Resp BP BP Pulse Ox 10/28/20 18:25 36.8 C 68 18 174/79 H 98 10/28/20 17:59 71 18 147/74 H 97 10/28/20 16:25 69 14 163/76 H 98 10/28/20 16:20 70 21 96 10/28/20 16:10 73 16 96 10/28/20 16:00 73 20 95 10/28/20 15:50 69 23 96 10/28/20 15:40 72 16 96 10/28/20 15:30 71 20 96 10/28/20 15:28 96 10/28/20 15:21 71 24 149/89 H 95 10/28/20 15:20 71 16 91 10/28/20 15:10 71 18 92 10/28/20 15:05 81 22 151/117 H 92 10/28/20 15:00 74 14 87 L 10/28/20 14:50 74 13 90 10/28/20 14:40 74 14 91 10/28/20 14:30 73 19 93 10/28/20 14:20 73 18 90 10/28/20 14:10 73 17 90 10/28/20 14:00 70 17 91 10/28/20 13:58 74 19 158/94 H 93 10/28/20 13:56 73 13 94 10/28/20 13:40 73 15 90 10/28/20 13:30 72 18 91 10/28/20 13:24 77 23 90 10/28/20 13:18 78 16 92 10/28/20 12:47 36.6 C 84 20 157/108 H 92 Diagnostic Findings THORACIC SPINE CT, LUMBAR SPINE CT IMPRESSION: 1. An acute mild superior endplate compression fracture at T11 resulting in minimal anterior wedging. No associated retropulsion. 2. No acute fractures within the lumbar spine. 3. T12 vertebroplasty is again noted. 4. Degenerative changes and scoliosis as described above. CT chest diagnostic wo con IMPRESSION: 1. An acute mild superior endplate compression fracture at T11. 2. Trace right pleural effusion. 3. A few bibasilar densities favor atelectasis. 4. Old, healed right-sided rib fractures. No acute rib fractures. No pneumothorax. 5. Advanced degenerative changes within the bilateral shoulders with a moderate to large left joint effusion. This remains unchanged. Medications Administered ER Medications given: [place] 5/325 1 tab PO Dilaudid 0.25mg IV ECG Indication: chest pain Rate (beats per minute): 76 Rhythm: normal sinus Findings: + paced rhythm (intermittent atrial sensed, ventricular paced); no acute ischemic change Comparison ECG Date: from (February 27, 2020) Change: no significant change Code Status & VTE Plan Code Status DNR/DNI as discussed with the patient VTE Prophylaxis Plan VTE Prophylaxis will be ordered: No PG Care Time/CCT Total # of Minutes Spent Total Time Spent with Patient: Total time spent is greater than 50% in coordination of care (as documented) at patient's floor/unit and/or counseling patient: Coding Level of Care Code 41224 Initial Inpt Care Lvl 2 Diagnoses Closed wedge compression fracture of T11 vertebra S22.080A Fall W19.XXXA Encounter type: initial encounter Right-sided chest pain R07.9 Hypothyroidism E03.9 Mixed stress and urge incontinence N39.46 (1) Fall Encounter type: initial encounter Qualified Code(s): W19.XXXA - Unspecified fall, initial encounter
--- NOTE | 2020-10-29 11:26 | Electrocardiogram Report ---
Test Reason : Blood Pressure : / mmHG Vent. Rate : 076 BPM Atrial Rate : 076 BPM P-R Int : 134 ms QRS Dur : 102 ms QT Int : 390 ms P-R-T Axes : 065 -05 025 degrees QTc Int : 438 ms Sinus rhythm with occasional ventricular-paced complexes with ventricular fusion Low voltage QRS Borderline ECG When compared with ECG of 27-FEB-2020 11:23, No significant change Confirmed by Neel Amaral ([id number]) on 10/29/2020 11:25:59 AM Referred By: REFERRED SELF Confirmed By:Neel Amaral
[2020-10-29] MEDS: ATORVASTATIN 40 MG TAB PO SCH (20:36)
[2020-10-29] MEDS: GABAPENTIN 600 MG TAB PO SCH (20:37)
[2020-10-29] MEDS: OXYBUTYNIN CHLORIDE XL 5 MG TABCR PO SCH (20:37)
--- NOTE | 2020-10-29 21:32 | Hospitalist Progress Note ---
Date of Service October 29, 2020 Assessment & Plan (1) Closed wedge compression fracture of T11 vertebra: Continue acetaminophen but increase to 1g TID iNCREASED Tramadol TO q4h ( IT WAS Q6H) 50mg PO PRN - patient reports it was helping to myself BUT NOT AT GOAL. TLSO brace for any movement Lidocaine patch Continue on her usual gabapentin. will consider procalcitonin nasal spray in AM. (2) Fall: Appears to be mechanical but possible peripheral neuropathy contributing. (3) Right-sided chest pain: Suspect MSK secondary to her T11 fracture. No worse on inspiration and reproducible on palpation. (4) Hypothyroidism: TSH WNL in August. No need to repeat this. Continue levothyroxine 150 mcg PO daily (5) Mixed stress and urge incontinence: Continue oxybutynin 5mg PO HS Admission and Anticipated Discharge Date Admission Date: October 28, 2020 Subjective Patient reports she continues to have pain. She feels like it is not completely controlled. Considers it moderate in intensity. Review of Systems Review of Systems: All systems reviewed & are unremarkable except as noted in HPI & below Physical Exam Physical Exam: Constitutional: well developed and well nourished; no acute distress Eyes: PERRL, conjunctivae normal, anicteric sclerae ENMT: external ear and nose normal, oropharynx normal Neck: trachea midline Respiratory: normal respiratory effort, lungs clear to auscultation Cardiovascular: RRR, no murmur, no edema Chest (Breasts): Chest: + abnormal inspection of chest (palpation over 10th- 11th right lateral rib painful) Gastrointestinal (Abdomen): normal bowel sounds, soft, nontender, no hepatosp lenomegaly Musculoskeletal: Spine: + pain with thoraco-lumbar ROM, + thoracic spinal tenderness (Approximately T11) and + paraspinal tenderness Skin: no rashes, warm and dry Neurologic: moves all extremities and awake; no focal motor deficits and not confused Speech / Cognition: normal speech Motor/Sensory: no pronator drift and no sensory deficit Psychiatric: A+Ox3, euthymic affect Results & Data Results & Data ([facility]) Vital Signs (Past 12 Hours) Vital Signs Temp Pulse Resp BP Pulse Ox 10/29/20 14:47 36.5 C 79 16 142/89 H 90 PG Care Time/CCT Total # of Minutes Spent Total Time Spent with Patient: Total time spent is greater than 50% in coordination of care (as documented) at patient's floor/unit and/or counseling patient: Coding Level of Care Code 33813 Subseq Hosp Care Lvl 2 Diagnoses Closed wedge compression fracture of T11 vertebra S22.080A Fall W19.XXXA Encounter type: initial encounter Right-sided chest pain R07.9 Hypothyroidism E03.9 Mixed stress and urge incontinence N39.46 Time Spent (min) 25 (1) Fall Encounter type: initial encounter Qualified Code(s): W19.XXXA - Unspecified fall, initial encounter
[2020-10-30] MEDS: LEVOTHYROXINE SODIUM 150 MCG TABLET PO SCH (04:35)
[2020-10-30] MEDS: traMADol HCL 50 MG TABLET PO PRN ×3 (04:35→22:33)
[2020-10-30] MEDS ORDERED: COUGH DROP (SUGAR FREE) LOZ 24 LOZ/1 BOX BUCCAL ONE (07:36)
[2020-10-30] MEDS: FERROUS SULFATE 325 MG TAB PO SCH (09:00)
[2020-10-30] MEDS: ASPIRIN 81 MG ECTAB PO SCH (09:00)
[2020-10-30] MEDS: PANTOprazole 40 MG TAB PO SCH (09:01)
[2020-10-30] MEDS: CEROVITE ADV FORMULA TAB PO SCH (09:01)
[2020-10-30] MEDS: ACETAMINOPHEN 500 MG TAB PO SCH ×3 (09:01→20:19)
[2020-10-30] MEDS: CYANOCOBALAMIN 500 MCG TABLET (VITAMIN B-12) PO SCH (09:02)
[2020-10-30] MEDS: CHOLECALCIFEROL 1,000 UNITS 25 MCG TAB PO SCH (09:02)
[2020-10-30] MEDS: ASCORBIC ACID 500 MG TAB PO SCH (09:03)
[2020-10-30] MEDS: LIDOCAINE 5% 1 PATCH TD SCH (09:03)
[2020-10-30] MEDS ORDERED: CALCITONIN SALMON 400 UNITS/2 ML SQ SCH (10:00)
--- NOTE | 2020-10-30 13:51 | Hospitalist Progress Note ---
Date of Service October 30, 2020 Assessment & Plan (1) Closed wedge compression fracture of T11 vertebra: Pain remains severe. Added ibuprofen scheduled, patient reports that she takes this as an outpatient. Continue acetaminophen 1g TID and Tramadol TO q4h ( IT WAS Q6H) 50mg PO PRN - patient reports it was helping to myself BUT NOT AT GOAL. TLSO brace for any movement: patient refused this. Lidocaine patch Continue on her usual gabapentin. Added calcitonin spray. (2) Fall: Appears to be mechanical but possible peripheral neuropathy contributing. (3) Right-sided chest pain: Suspect MSK secondary to her T11 fracture. No worse on inspiration and reproducible on palpation. (4) Hypothyroidism: TSH WNL in August. No need to repeat this. Continue levothyroxine 150 mcg PO daily (5) Mixed stress and urge incontinence: Continue oxybutynin 5mg PO HS Admission and Anticipated Discharge Date Admission Date: October 28, 2020 Subjective 85 yo reports that she still has severe pain in her back. Review of Systems Review of Systems: All systems reviewed & are unremarkable except as noted in HPI & below Physical Exam Physical Exam: Constitutional: well developed and well nourished; no acute distress Eyes: PERRL, conjunctivae normal, anicteric sclerae ENMT: external ear and nose normal, oropharynx normal Neck: trachea midline Respiratory: normal respiratory effort, lungs clear to auscultation Cardiovascular: RRR, no murmur, no edema Chest (Breasts): Chest: + abnormal inspection of chest (palpation over 10th- 11th right lateral rib painful) Gastrointestinal (Abdomen): normal bowel sounds, soft, nontender, no hepatosplenomegaly Musculoskeletal: Spine: + pain with thoraco-lumbar ROM, + thoracic spinal tenderness (Approximately T11) and + paraspinal tenderness Skin: no rashes, warm and dry Neurologic: moves all extremities and awake; no focal motor deficits and not confused Speech / Cognition: normal speech Motor/Sensory: no pronator drift and no sensory deficit Psychiatric: A+Ox3, euthymic affect Results & Data Results & Data ([facility]) Vital Signs (Past 12 Hours) Vital Signs Temp Pulse Resp BP Pulse Ox 10/30/20 06:59 36.5 C 82 18 151/91 H 93 10/30/20 06:55 85 L PG Care Time/CCT Total # of Minutes Spent Total Time Spent with Patient: Total time spent is greater than 50% in coordination of care (as documented) at patient's floor/unit and/or counseling patient: Coding Level of Care Code 81382 Subseq Hosp Care Lvl 2 Diagnoses Closed wedge compression fracture of T11 vertebra S22.080A Fall W19.XXXA Encounter type: initial encounter Right-sided chest pain R07.9 Hypothyroidism E03.9 Mixed stress and urge incontinence N39.46 Time Spent (min) 25 (1) Fall Encounter type: initial encounter Qualified Code(s): W19.XXXA - Unspecified fall, initial encounter
[2020-10-30] MEDS: CALCITONIN SALMON NA 200 IU/AC 3.7 ML BTL SCH (15:21)
[2020-10-30] MEDS: IBUPROFEN 200 MG TAB PO SCH ×2 (15:23→20:19)
[2020-10-30] MEDS: DOCUSATE SODIUM/SENNA 50/8.6MG TAB PO SCH (15:24)
[2020-10-30] MEDS: POLYETHYLENE (MIRALAX) 17 GM PACK PO SCH (15:24)
[2020-10-30] MEDS: OXYBUTYNIN CHLORIDE XL 5 MG TABCR PO SCH (20:19)
[2020-10-30] MEDS: GABAPENTIN 600 MG TAB PO SCH (20:19)
[2020-10-30] MEDS: FAMOTIDINE 20 MG TAB PO SCH (20:19)
[2020-10-30] MEDS: ATORVASTATIN 40 MG TAB PO SCH (20:19)
[2020-10-31] MEDS: LEVOTHYROXINE SODIUM 150 MCG TABLET PO SCH (05:26)
[2020-10-31] MEDS: LIDOCAINE 5% 1 PATCH TD SCH (08:37)
[2020-10-31] MEDS: CHOLECALCIFEROL 1,000 UNITS 25 MCG TAB PO SCH (08:37)
[2020-10-31] MEDS: POLYETHYLENE (MIRALAX) 17 GM PACK PO SCH (08:37)
[2020-10-31] MEDS: ASCORBIC ACID 500 MG TAB PO SCH (08:37)
[2020-10-31] MEDS: DOCUSATE SODIUM/SENNA 50/8.6MG TAB PO SCH (08:38)
[2020-10-31] MEDS: CEROVITE ADV FORMULA TAB PO SCH (08:38)
[2020-10-31] MEDS: FERROUS SULFATE 325 MG TAB PO SCH (08:38)
[2020-10-31] MEDS: PANTOprazole 40 MG TAB PO SCH (08:38)
[2020-10-31] MEDS: IBUPROFEN 200 MG TAB PO SCH ×3 (08:38→19:44)
[2020-10-31] MEDS: ASPIRIN 81 MG ECTAB PO SCH (08:38)
[2020-10-31] MEDS: ACETAMINOPHEN 500 MG TAB PO SCH ×3 (08:38→19:47)
[2020-10-31] MEDS: CYANOCOBALAMIN 500 MCG TABLET (VITAMIN B-12) PO SCH (08:38)
[2020-10-31] MEDS: FAMOTIDINE 20 MG TAB PO SCH ×2 (08:38→19:47)
[2020-10-31] MEDS: CALCITONIN SALMON NA 200 IU/AC 3.7 ML BTL SCH (08:39)
[2020-10-31 09:59] LABS: Eosinophils # (auto) 0.42 K/uL (0-0.5); Eosinophils % (auto) 5.4 %; Hemoglobin 15.1 g/dL (12.0-16.0); Immature Granulocytes # (auto) 0.02 K/uL (0.00-0.02); Immature Granulocytes % (auto) 0.3 %; Lymphocytes # (auto) 1.97 K/uL (1.2-3.4); Lymphocytes % (auto) 25.5 %; Mean Corpuscular Hemoglobin 33.5 pg (25-34); Mean Corpuscular Hgb Conc 33.6 g/dL (32-36); Mean Corpuscular Volume 99.8 fL (80-100); Mean Platelet Volume 10.7 fL (7.4-10.4); Monocytes # (auto) 0.74 K/uL (0.11-0.59); Monocytes % (auto) 9.6 %; Neutrophils # (auto) 4.57 K/uL (1.4-6.5); Neutrophils % (auto) 59.2 %; Platelet Count 210 K/uL (130-400); RDW Coefficient of Variation 13.1 % (11.5-14.5); RDW Standard Deviation 47.9 fL (36.4-46.3); Red Blood Count 4.51 M/uL (4.2-5.4); White Blood Count 7.72 K/uL (4.8-10.8)
[2020-10-31 10:23] LABS: BUN Creatinine Ratio 17.9 (10-20); Creatinine Clr Calc Pharmacy 29.8 ml/min; Est GFR (African American) 49.5; Est GFR (Non-African American) 42.7; Potassium 3.9 mmol/L (3.5-5.1)
[2020-10-31] MEDS: traMADol HCL 50 MG TABLET PO PRN ×4 (10:35→22:47)
[2020-10-31] MEDS: OXYBUTYNIN CHLORIDE XL 5 MG TABCR PO SCH (19:45)
[2020-10-31] MEDS: GABAPENTIN 600 MG TAB PO SCH (19:46)
[2020-10-31] MEDS: ATORVASTATIN 40 MG TAB PO SCH (19:46)
--- NOTE | 2020-10-31 22:40 | Hospitalist Progress Note ---
Date of Service October 31, 2020 Assessment & Plan (1) Closed wedge compression fracture of T11 vertebra: Pain remains severe: despite Ibuprofen, tylenol and tramadol and calcitonin. will continue to monitor. May take a few days for calcitonin to improve pain. TLSO brace for any movement: patient refused this. Lidocaine patch Continue on her usual gabapentin. Due to constipation and no BM in hopsital, admission was held. Patient is also refusing rehab.. (2) Fall: Appears to be mechanical but possible peripheral neuropathy contributing. (3) Right-sided chest pain: Suspect MSK secondary to her T11 fracture. No worse on inspiration and reproducible on palpation. (4) Hypothyroidism: TSH WNL in August. No need to repeat this. Continue levothyroxine 150 mcg PO daily (5) Mixed stress and urge incontinence: Continue oxybutynin 5mg PO HS Admission and Anticipated Discharge Date Admission Date: October 28, 2020 Subjective Patient reports that her pain is severe. She also reports that she has not had a bowel movement as of yet. Patient is currently refusing rehab. Review of Systems Review of Systems: All systems reviewed & are unremarkable except as noted in HPI & below Physical Exam Physical Exam: Constitutional: well developed and well nourished; no acute distress Eyes: PERRL, conjunctivae normal, anicteric sclerae ENMT: external ear and nose normal, oropharynx normal Neck: trachea midline Respiratory: normal respiratory effort, lungs clear to auscultation Cardiovascular: RRR, no murmur, no edema Chest (Breasts): Chest: + abnormal inspection of chest (palpation over 10th- 11th right lateral rib painful) Gastrointestinal (Abdomen): normal bowel sounds, soft, nontender, no hepatosplenomegaly Musculoskeletal: Spine: + pain with thoraco-lumbar ROM, + thoracic spinal tenderness (Approximately T11) and + paraspinal tenderness Skin: no rashes, warm and dry Neurologic: moves all extremities and awake; no focal motor deficits and not confused Speech / Cognition: normal speech Motor/Sensory: no pronator drift and no sensory deficit Psychiatric: A+Ox3, euthymic affect Results & Data Results & Data ([facility]) Vital Signs (Past 12 Hours) Vital Signs Temp Pulse Resp BP Pulse Ox 10/31/20 15:40 36.8 C 65 17 135/81 92 PG Care Time/CCT Total # of Minutes Spent Total Time Spent with Patient: Total time spent is greater than 50% in coordination of care (as documented) at patient's floor/unit and/or counseling patient: Coding Level of Care Code 46760 Subseq Hosp Care Lvl 3 Diagnoses Closed wedge compression fracture of T11 vertebra S22.080A Fall W19.XXXA Encounter type: initial encounter Right-sided chest pain R07.9 Hypothyroidism E03.9 Mixed stress and urge incontinence N39.46 Time Spent (min) 35 (1) Fall Encounter type: initial encounter Qualified Code(s): W19.XXXA - Unspecified fall, initial encounter
[2020-11-01] MEDS: LEVOTHYROXINE SODIUM 150 MCG TABLET PO SCH (05:51)
[2020-11-01] MEDS: traMADol HCL 50 MG TABLET PO PRN ×2 (07:39→12:49)
[2020-11-01] MEDS: ASCORBIC ACID 500 MG TAB PO SCH (08:59)
[2020-11-01] MEDS: CEROVITE ADV FORMULA TAB PO SCH (08:59)
[2020-11-01] MEDS: FERROUS SULFATE 325 MG TAB PO SCH (08:59)
[2020-11-01] MEDS: CYANOCOBALAMIN 500 MCG TABLET (VITAMIN B-12) PO SCH (08:59)
[2020-11-01] MEDS: FAMOTIDINE 20 MG TAB PO SCH ×2 (08:59→21:31)
[2020-11-01] MEDS: ASPIRIN 81 MG ECTAB PO SCH (08:59)
[2020-11-01] MEDS: POLYETHYLENE (MIRALAX) 17 GM PACK PO SCH (08:59)
[2020-11-01] MEDS: CALCITONIN SALMON NA 200 IU/AC 3.7 ML BTL SCH ×3 (09:00→16:00)
[2020-11-01] MEDS: DOCUSATE SODIUM/SENNA 50/8.6MG TAB PO SCH (09:00)
[2020-11-01] MEDS: PANTOprazole 40 MG TAB PO SCH (09:00)
[2020-11-01] MEDS: LIDOCAINE 5% 1 PATCH TD SCH (09:00)
[2020-11-01] MEDS: IBUPROFEN 200 MG TAB PO SCH ×3 (09:00→21:31)
[2020-11-01] MEDS: CHOLECALCIFEROL 1,000 UNITS 25 MCG TAB PO SCH (09:00)
[2020-11-01] MEDS: ACETAMINOPHEN 500 MG TAB PO SCH ×3 (09:01→21:31)
[2020-11-01] MEDS: METHYLNALTREXONE BROMIDE 12 MG/0.6 ML VIAL SQ SCH (11:37)
--- NOTE | 2020-11-01 15:54 | XRay Report ---
[facility] CLINICAL HISTORY: CONSTIPATION COMPARISON STUDY: CT of the abdomen and pelvis October 01, 2019. FINDINGS: Left hip arthroplasty is partially imaged. 12 vertebroplasty is noted. There is a moderate to large amount stool within the colon and rectum. There is no evidence for a bowel obstruction. Dext roscoliosis of the lumbar spine is noted. Pacer leads are partially imaged. IMPRESSION: 1. Moderate to large amount of stool within the colon and rectum. 2. No evidence for a bowel obstruction. ACT 112: Negative or not required by law. Electronically signed by: Kendall Kirby M.D. 11/01/2020 3:52 PM
[2020-11-01] MEDS: OXYBUTYNIN CHLORIDE XL 5 MG TABCR PO SCH (21:31)
[2020-11-01] MEDS: GABAPENTIN 600 MG TAB PO SCH (21:31)
[2020-11-01] MEDS: ATORVASTATIN 40 MG TAB PO SCH (21:31)
--- NOTE | 2020-11-01 23:42 | Hospitalist Progress Note ---
Date of Service November 01, 2020 Assessment & Plan (1) Closed wedge compression fracture of T11 vertebra: Age-rel osteoporotic fracture of T11 vertebra 2/2 to fall from less than standing height. Pain remains severe: despite Ibuprofen, tylenol and tramadol. Not receiving the calcitonin would explain why she has not improvied. Appears pain is worse when she moves and it is tolerable when she is at rest. She does not want to try the brace. will continue to monitor. May take a few days for calcitonin to improve pain. TLSO brace for any movement: patient refused this. Lidocaine patch Continue on her usual gabapentin. Due to constipation and no BM in hospital, discharge was held. Ordered relistor for possibility of tramadol worsening her constipation. Patient is also refusing rehab. I updated patient's family. (2) Fall: Appears to be mechanical but possible peripheral neuropathy contributing. (3) Right-sided chest pain: Suspect MSK secondary to her T11 fracture. No worse on inspiration and reproducible on palpation. (4) Hypothyroidism: TSH WNL in August. No need to repeat this. Continue levothyroxine 150 mcg PO daily (5) Mixed stress and urge incontinence: Continue oxybutynin 5mg PO HS Admission and Anticipated Discharge Date Admission Date: October 28, 2020 Subjective Patient reports feeling about the same in regards to pain. Had discussion with nurse, appears patient refused today's and yesterday's dose of calcitonin. Patient also reports having nausea and vomiting. (Yesterday's dose was documented that she had received it. This was later corrected.) Review of Systems Review of Systems: All systems reviewed & are unremarkable except as noted in HPI & below Physical Exam Physical Exam: Constitutional: well developed and well nourished; no acute distress Eyes: PERRL, conjunctivae normal, anicteric sclerae ENMT: external ear and nose normal, oropharynx normal Neck: trachea midline Respiratory: normal respiratory effort, lungs clear to auscultation Cardiovascular: RRR, no murmur, no edema Chest (Breasts): Chest: + abnormal inspection of chest (palpation over 10th- 11th right lateral rib painful) Gastrointestinal (Abdomen): normal bowel sounds, soft, nontender, no hepatosplenomegaly Musculoskeletal: Spine: + pain with thoraco-lumbar ROM, + thoracic spinal tenderness (Approximately T11) and + paraspinal tenderness Skin: no rashes, warm and dry Neurologic: moves all extremities and awake; no focal motor deficits and not confused Speech / Cognition: normal speech Motor/Sensory: no pronator drift and no sensory deficit Psychiatric: A+Ox3, euthymic affect Results & Data Results & Data ([facility]) Vital Signs (Past 12 Hours) Vital Signs Temp Pulse Resp BP BP Pulse Ox 11/01/20 22:53 164/79 H 11/01/20 22:51 36.8 C 69 16 178/93 H 92 11/01/20 16:44 138/84 11/01/20 14:26 36.4 C L 72 18 177/95 H 92 PG Care Time/CCT Total # of Minutes Spent Total Time Spent with Patient: Total time spent is greater than 50% in coord ination of care (as documented) at patient's floor/unit and/or counseling patient: Coding Level of Care Code 06287 Subseq Hosp Care Lvl 3 Diagnoses Closed wedge compression fracture of T11 vertebra S22.080A Fall W19.XXXA Encounter type: initial encounter Right-sided chest pain R07.9 Hypothyroidism E03.9 Mixed stress and urge incontinence N39.46 Time Spent (min) 35 (1) Fall Encounter type: initial encounter Qualified Code(s): W19.XXXA - Unspecified fall, initial encounter
[2020-11-02] MEDS: LEVOTHYROXINE SODIUM 150 MCG TABLET PO SCH (06:12)
[2020-11-02] MEDS: LIDOCAINE 5% 1 PATCH TD SCH (08:53)
[2020-11-02] MEDS: traMADol HCL 50 MG TABLET PO PRN ×2 (08:56→13:35)
[2020-11-02] MEDS: CYANOCOBALAMIN 500 MCG TABLET (VITAMIN B-12) PO SCH (08:57)
[2020-11-02] MEDS: IBUPROFEN 200 MG TAB PO SCH ×3 (08:57→20:28)
[2020-11-02] MEDS: FERROUS SULFATE 325 MG TAB PO SCH (08:57)
[2020-11-02] MEDS: PANTOprazole 40 MG TAB PO SCH (08:57)
[2020-11-02] MEDS: CHOLECALCIFEROL 1,000 UNITS 25 MCG TAB PO SCH (08:57)
[2020-11-02] MEDS: CEROVITE ADV FORMULA TAB PO SCH (08:57)
[2020-11-02] MEDS: DOCUSATE SODIUM/SENNA 50/8.6MG TAB PO SCH (08:57)
[2020-11-02] MEDS: ASCORBIC ACID 500 MG TAB PO SCH (08:57)
[2020-11-02] MEDS: POLYETHYLENE (MIRALAX) 17 GM PACK PO SCH (08:57)
[2020-11-02] MEDS: ASPIRIN 81 MG ECTAB PO SCH (08:57)
[2020-11-02] MEDS: ACETAMINOPHEN 500 MG TAB PO SCH ×3 (08:57→20:29)
[2020-11-02] MEDS: FAMOTIDINE 20 MG TAB PO SCH ×2 (08:57→20:29)
[2020-11-02] MEDS: CALCITONIN SALMON NA 200 IU/AC 3.7 ML BTL SCH (08:58)
[2020-11-02] MEDS: METHYLNALTREXONE BROMIDE 12 MG/0.6 ML VIAL SQ SCH (08:59)
--- NOTE | 2020-11-02 15:23 | Hospitalist Progress Note ---
Date of Service November 02, 2020 Assessment & Plan (1) Closed wedge compression fracture of T11 vertebra: Age-related osteoporotic fracture of T11 vertebra 2/2 to fall from less than standing height. - TLSO brace recommended for any movement: patient refused this. - Pain remains severe despite Ibuprofen, Tylenol, lidocaine patch, and tramadol. - Started calcitriol on 11/01. - Constipation also bothering the patient. On Miralax, senna/doc, and Relistor. - Still not able to work with PT/OT. - Patient has seen Dr. Moore in the past -> Will request consult for consideration of kyphoplasty or other intervention as she still cannot really participate with PT/OT. (2) Fall: Appears to be mechanical but possible peripheral neuropathy contributing. - PT/OT as above (3) HTN (hypertension), benign: BP presently 160/100. Higher today when in pain. - Not on any HTN meds - Monitor closely (4) Nonischemic cardiomyopathy: Unclear EF as none noted in charts that I see. - Continue ASA, statin (5) Right-sided chest pain: Suspect MSK secondary to her T11 fracture. No worse on inspiration and reproducible on palpation. - Pain control as above (6) Hypothyroidism: TSH WNL in August. No need to repeat this. - Continue levothyroxine 150 mcg PO daily (7) Mixed stress and urge incontinence: - Continue oxybutynin 5mg PO HS (8) DVT prophylaxis: Admission and Anticipated Discharge Date Admission Date: October 28, 2020 Subjective Still with intolerable back pain. Tried to get up, and felt nauseated from the pain. Reports no fevers/chills, chest pain, shortness of breath, abdominal pain, or vomiting. Physical Exam Constitutional: WD/WN, vitals as above Eyes: EOM intact bilaterally; no conjunctival abnormality ENMT: external ear and nose normal, oropharynx normal Neck: trachea midline, no thyromegaly normal visual inspection Respiratory: normal respiratory effort, lungs clear to auscultation no respiratory distress Cardiovascular: RRR, no murmur, no edema Gastrointestinal (Abdomen): Inspection/Auscultation: abdomen normal to inspection; abdomen not distended Musculoskeletal: no cyanosis or clubbing, extremities motor strength 5/5 Skin: no rashes, warm and dry Neurologic: moves all extremities and awake Psychiatric: Orientation: alert, oriented to person and cooperative Results & Data Results & Data ([facility]) Vital Signs (Past 12 Hours) Vital Signs Temp Pulse Pulse Resp BP Pulse Ox 11/02/20 15:05 36.8 C 69 15 159/100 H 92 11/02/20 07:32 36.6 C 60 15 162/97 H 91 PG Care Time/CCT Total # of Minutes Spent Total Time Spent with Patient: Total time spent is greater than 50% in coordination of care (as documented) at patient's floor/unit and/or counseling patient: Coding Level of Care Code 47554 Subseq Hosp Care Lvl 3 Diagnoses Closed wedge compression fracture of T11 vertebra S22.080A Fall W19.XXXA Encounter type: initial encounter HTN (hypertension), benign I10 Nonischemic cardiomyopathy I42.8 Right-sided chest pain R07.9 Hypothyroidism E03.9 Mixed stress and urge incontinence N39.46 DVT prophylaxis Z29.9 (1) Fall Encounter type: initial encounter Qualified Code(s): W19.XXXA - Unspecified fall, initial encounter
[2020-11-02] MEDS: GABAPENTIN 600 MG TAB PO SCH (20:29)
[2020-11-02] MEDS: OXYBUTYNIN CHLORIDE XL 5 MG TABCR PO SCH (20:29)
[2020-11-02] MEDS: ATORVASTATIN 40 MG TAB PO SCH (20:29)
[2020-11-03] MEDS: LEVOTHYROXINE SODIUM 150 MCG TABLET PO SCH (05:15)
[2020-11-03] MEDS: traMADol HCL 50 MG TABLET PO PRN ×2 (05:24→11:52)
[2020-11-03 06:02] LABS: Hematocrit (blood only) 44.2 % (37-47); Hemoglobin 14.8 g/dL (12.0-16.0); Mean Corpuscular Hemoglobin 33.5 pg (25-34); Mean Corpuscular Hgb Conc 33.5 g/dL (32-36); Mean Platelet Volume 10.3 fL (7.4-10.4); Platelet Count 220 K/uL (130-400); RDW Coefficient of Variation 13.2 % (11.5-14.5); Red Blood Count 4.42 M/uL (4.2-5.4); White Blood Count 8.61 K/uL (4.8-10.8)
[2020-11-03 06:39] LABS: BUN Creatinine Ratio 16.2 (10-20); Calcium 9.2 mg/dl (8.5-10.1); Creatinine Clr Calc Pharmacy 30.3 ml/min; Est GFR (African American) 50.6; Est GFR (Non-African American) 43.7; Magnesium 2.3 mg/dl (1.8-2.4)
[2020-11-03] MEDS: IBUPROFEN 200 MG TAB PO SCH (07:45)
[2020-11-03] MEDS: CEROVITE ADV FORMULA TAB PO SCH (07:46)
[2020-11-03] MEDS: CHOLECALCIFEROL 1,000 UNITS 25 MCG TAB PO SCH (07:46)
[2020-11-03] MEDS: CYANOCOBALAMIN 500 MCG TABLET (VITAMIN B-12) PO SCH (07:47)
[2020-11-03] MEDS: FERROUS SULFATE 325 MG TAB PO SCH (07:47)
[2020-11-03] MEDS: ASCORBIC ACID 500 MG TAB PO SCH (07:47)
[2020-11-03] MEDS: LIDOCAINE 5% 1 PATCH TD SCH (07:48)
[2020-11-03] MEDS: PANTOprazole 40 MG TAB PO SCH (07:48)
[2020-11-03] MEDS: DOCUSATE SODIUM/SENNA 50/8.6MG TAB PO SCH (07:48)
[2020-11-03] MEDS: ASPIRIN 81 MG ECTAB PO SCH (07:49)
[2020-11-03] MEDS: POLYETHYLENE (MIRALAX) 17 GM PACK PO SCH (07:49)
[2020-11-03] MEDS: FAMOTIDINE 20 MG TAB PO SCH (07:50)
[2020-11-03] MEDS: CALCITONIN SALMON NA 200 IU/AC 3.7 ML BTL SCH (07:50)
[2020-11-03] MEDS: ACETAMINOPHEN 500 MG TAB PO SCH (07:51)
--- NOTE | 2020-11-03 10:48 | Orthopedic Consultation ---
Date of Consultation November 03, 2020 Assessment & Plan (1) Closed wedge compression fracture of T11 vertebra: Patient presents with intractable back pain status post fall. There is a minimal if any for fracture of the T11 superior endplate anteriorly clinically the patient does not appear to have pain over this region. Her pain seems to be lower. Dr. Moore and I have reviewed the films and the case and would not proceed with any type of surgical procedure at this point as its not likely to address her symptoms. Continue with pain control measures as well as lidocaine patches and physical therapy and Occupational Therapy is recommended. History of Present Illness Attending Physician: Frank Park MD History of Present Illness Patient is an 85-year-old female who was seen bedside in room 307. Were asked to consult on the patient due to intractable back pain and evidence of a mild T11 fracture. She describes her pain as being in the lower portion of her back near the pelvis. She is not having any radicular complaints. She states she had a fall approximately 1 week ago that resulted in her discomfort. She has history significant for previous kyphoplasty of T12. She denies any other numbness, tingling, or paresthesias. Allergies Allergy/AdvReac Type Severity Reaction Status Date / Time celecoxib Allergy Severe SX OF Verified 10/28/20 14:19 STROKE, FACIAL NUMBNESS, UNABLE TO SPEAK fesoterodine [From Toviaz] Allergy Unknown Unknown Verified 10/28/20 14:19 solifenacin [From Vesicare] Allergy Unknown Unknown Verified 10/28/20 14:19 morphine AdvReac Intermediate Confusion Verified 10/28/20 14:19 ciprofloxacin AdvReac Mild UPSET Verified 10/28/20 14:19 STOMACH metronidazole AdvReac Mild N/V Verified 10/28/20 14:19 Home Medications Medication Instructions Recorded Confirmed Type cholecalciferol (vitamin D3) 2,000 unit PO QAM 08/05/18 10/28/20 History [Vitamin D3] cyanocobalamin (vitamin B-12) 1,000 mcg PO QAM 08/05/18 10/28/20 History [Vitamin B-12] ascorbic acid (vitamin C) 500 mg 500 mg PO QAM tab 02/26/19 10/28/20 History tablet levothyroxine 150 mcg tablet 150 mcg PO QAM #90 tab 12/07/19 10/28/20 Rx atorvastatin 40 mg tablet 40 mg PO HS #90 tab 02/21/20 10/28/20 Rx pantoprazole 40 mg tablet,delayed 40 mg PO QAM #30 tab 05/15/20 10/28/20 Rx release OneTouch Ultra Blue Test Strip #300 ea NS 05/18/20 10/16/20 Rx aspirin 81 mg tablet,delayed 81 mg PO QAM 08/21/20 10/28/20 History release ferrous sulfate 325 mg (65 mg 325 mg PO QAM 08/21/20 10/28/20 History iron) tablet multivit with 1 tab PO QAM 08/21/20 10/28/20 History micmjunj-scwb-YT-lutein 8 mg iron-400 mcg-300 mcg tablet gabapentin 300 mg capsule 600 mg PO HS #60 cap 09/05/20 10/28/20 Rx oxybutynin chloride 5 mg 5 mg PO HS #30 tab 09/05/20 10/28/20 Rx tablet,extended release 24 hr ipratropium bromide 0.03 % nasal 2 spray INTRANASAL BID PRN #30 ml 09/20/20 10/28/20 Rx spray tramadol 50 mg PO BID PRN #11 tab 10/26/20 10/28/20 Rx vitamin A 0 unit PO QAM 10/28/20 10/28/20 History vitamin E 0 unit PO QAM 10/28/20 10/28/20 History Patient History Medical History Anemia Cardiac defibrillator in place Cardiomyopathy Carotid artery stenosis Chronic pancreatitis CKD (chronic kidney disease) stage 3, GFR 30-59 ml/min Degenerative joint disease (DJD) of hip Diabetes mellitus, type 2 Diabetic nephropathy Diabetic peripheral neuropathy Diverticulitis Diverticulosis of colon Duodenal ulcer GERD (gastroesophageal reflux disease) GERD without esophagitis HLD (hyperlipidemia) HTN (hypertension), benign Hypercholesterolemia Hypothyroid IBS (irritable bowel syndrome) ICD (implantable cardioverter-defibrillator) battery depletion Insomnia Lumbar canal stenosis Lumbar spondylosis Nocturia Nonischemic cardiomyopathy Osteoarthritis Osteoporosis Presence of cardiac pacemaker Pulmonary nodule Rib fracture 09/17/18 R/T FALL. D/C'D TO [facility]. Scaphoid fracture of wrist Urge incontinence of urine Vitamin D deficiency, unspecified Surgical History History of cardiac cath PER PT, 5-10 YEARS AGO AT [facility] - REASON? - NO STENTS/ANGIOPLASTY History of cholecystectomy History of colonoscopy History of ERCP w/ sphincterotomy & CBD stent History of esophagogastroduodenoscopy (EGD) History of vertebroplasty T12 S/P appendectomy S/P hysterectomy S/P ICD (internal cardiac defibrillator) procedure Biventricular AICD placed in 2007, Generator Change-out 02/15/2020 -- now has a [employer]-D Bi-V AICD. S/P kyphoplasty S/P partial colectomy S/P rotator cuff surgery Family History Son Diabetes Sister Breast cancer Denies family history of Ovarian cancer Prostate cancer Hearing loss No family history of adverse response to anesthesia No family history of bleeding disorder Heart disease Allergies Myocardial infarction Colorectal cancer Cancer Hypertension Stroke Asthma Social History Smoking Status: Never smoker Second Hand Exposure: No; Hx Alcohol Use: No Hx Substance Use: No Preferred Language: Palestinian Communication Ability: Effective Visual Impairment: No Limitations Hearing Ability: Normal Arch Support Technician Required: No Beliefs That Will Affect Care: None marital status: Current Living Situation: Spouse current occupational status: retired current occupation: retired from career with [employer] How many Children do You have: 4 Feels Safe at Home: Yes Childhood Exposure to Second-Hand Smoke: No Dental Care, Regularly: No Physical Activity Frequency: Does not Exercise Seatbelt Use: always Sunscreen Use: No Assistive Devices: Walker Physical Exam Physical Exam: On exam patient is alert and oriented. She is sitting comfortably in her chair. Her lower extremity motor exam reveals no focal atrophy her strength and sensation are both intact. She is tender palpation along the PSIS bilaterally. She is nontender palpation and percussion of the thoracolumbar junction. Her skin is clean dry and intact with no lesions. Her gait was not observed. Results & Data ([facility]) Vital Signs (Past 12 Hours) Vital Signs Temp Pulse Resp BP Pulse Ox 11/03/20 06:24 36.4 C L 65 17 165/87 H 94 11/02/20 23:14 168/80 H 11/02/20 23:06 36.4 C L [address] scan of the thoracic and lumbar spine are reviewed. There are multilevel degenerative changes with severe to space narrowing at several levels. There is an abnormality in the superior endplate of T11 anteriorly which may represent a fracture versus a possible nutrient vessel. There is no central depression no other fractures are noted.
--- NOTE | 2020-11-03 17:52 | Discharge Summary ---
Date of Service November 03, 2020 Admission HPI Per Admitting Provider Katty Reynolds is an 85 year old female who presents to the ER with right sided rib and back pain. She was previously seen for the same in the Emergency room 2 days ago after tripping over her cat when getting up from her chair and landing on a coffee table. 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 She reports the pain is 0/10 at rest but painful on any movement or palpation. T11 level in back and right lateral ribs without radiation. Pain 10/10 on movement in ER. In the ER, repeat imaging with CT showed an acute T11 fracture. She denies any new trauma. She was referred to medicine for admission and ongoing management as she felt she would be unable to go home with her current pain and unable to admit her to inpatient rehabilitation in the ER. Principal Diagnosis Compression fracture Discharge Exam Constitutional WD/WN, vitals as above Eyes EOM intact bilaterally; no conjunctival abnormality ENMT external ear and nose normal, oropharynx normal Neck trachea midline, no thyromegaly normal visual inspection Respiratory normal respiratory effort, lungs clear to auscultation no respiratory distress Cardiovascular RRR, no murmur, no edema Gastrointestinal (Abdomen) Inspection/Auscultation: abdomen normal to inspection; abdomen not distended Musculoskeletal no cyanosis or clubbing, extremities motor strength 5/5 Skin no rashes, warm and dry Neurologic moves all extremities and awake Psychiatric Orientation: alert, oriented to person and cooperative Discharge Data Allergies Allergy/AdvReac Type Severity Reaction Status Date / Time celecoxib Allergy Severe SX OF Verified 10/28/20 14:19 STROKE, FACIAL NUMBNESS, UNABLE TO SPEAK fesoterodine [From Toviaz] Allergy Unknown Unknown Verified 10/28/20 14:19 solifenacin [From Vesicare] Allergy Unknown Unknown Verified 10/28/20 14:19 morphine AdvReac Intermediate Confusion Verified 10/28/20 14:19 ciprofloxacin AdvReac Mild UPSET Verified 10/28/20 14:19 STOMACH metronidazole AdvReac Mild N/V Verified 10/28/20 14:19 Consultations 10/28/20 15:34 ED Decision to Admit Stat 11/02/20 15:11 Consult Orthopedic Surgery Routine Ordered Studies 10/28/20 13:07 CT chest diagnostic wo con Stat CT lumbar spine wo con Stat CT thoracic spine wo con Stat Hospital Course (1) Closed wedge compression fracture of T11 vertebra: Age-related osteoporotic fracture of T11 vertebra 2/2 to fall from less than standing height. - TLSO brace recommended for any movement: patient refused this. - Pain remained significant despite Ibuprofen, Tylenol, lidocaine patch, and tramadol. - Started calcitriol on 11/01 without much improvement. - Constipation also bothering the patient. On Miralax, senna/doc, and Relistor. Advised senna-doc as well on discharge. - Patient seen by Dr. Moore on 11/03 without any need for surgery. Patient requested discharge to home and was in her full capacity and ability to make that decision. While the pain was not entirely controlled, she felt she would be more comfortable at home. She will see Dr. Moore in clinic if the pain does not improve in 1-2 weeks. - Discharged home with home RN/PT/OT. (2) Fall: Appears to be mechanical but possible peripheral neuropathy contributing. - PT/OT as above (3) HTN (hypertension), benign: BP presently 165/90. - Not on any HTN meds - Monitor -> Defer to PCP. (4) Nonischemic cardiomyopathy: Unclear EF as none noted in charts that I see. Appeared euvolemic during her entire stay in the hospital. - Continue ASA, statin (5) Right-sided chest pain: Suspect MSK secondary to her T11 fracture. No worse on inspiration and reproducible on palpation. - Pain control as above (6) Hypothyroidism: TSH WNL in August. No need to repeat this. - Continue levothyroxine 150 mcg PO daily (7) Mixed stress and urge incontinence: - Continue oxybutynin 5mg PO HS (8) DVT prophylaxis: Total Time Total Time Spent Total Time Spent (In Minutes): 35 Discharge Plan Discharge Items Patient Disposition: Home - Home Health Services Reason For Visit: T11 FRACTURE Discharge Diagnosis: T11 fracture Activity: Resume your previous activity Non-emergency contact: Primary Care Provider Call non-emergency contact if: you have any medication questions Follow-up/Referrals: Rome Castellanos MD [Primary Care Provider] - 11/06/20 2:00 pm (APPT WITH [facility]) Teresa,Nihtin M, DO [Surgeon] - Diet: Regular Addtl Attending Provider Instructions: You were admitted for a small compression fracture in your spine. Dr. Moore saw you and felt this did not warrant any surgical intervention. The pain you are experiencing was tolerable, and you requested going home, so we decided to get you home with home health and physical therapy. If the pain does not improve within another week or two, please see Dr. Moore in the clinic. Pending Studies at Discharge: No Stand-Alone Forms: My [facility], Opioid Pain Management, Smoking Cessation Medications and DC Order Prescriptions: New acetaminophen 500 mg Tablet 1,000 mg PO TID Qty: 0 RF: 0 sennosides-docusate sodium [Senokot-S] 8.6-50 mg Tablet 1 tab PO QAM Qty: 0 RF: 0 lidocaine 5 % Adhesive Patch,Medicated 1 patch transdermal QAM Qty: 15 RF: 0 Continued levothyroxine 150 mcg tablet 150 mcg PO QAM Qty: 90 RF: 3 atorvastatin 40 mg tablet 40 mg PO HS Qty: 90 RF: 3 pantoprazole 40 mg tablet,delayed release (DR/EC) 40 mg PO QAM Qty: 30 RF: 11 (DME) blood sugar diagnostic [OneTouch Ultra Blue Test Strip] Strip See Rx Instructions .ROUTE .MEDSUPPLY Qty: 300 RF: 3 gabapentin 300 mg capsule 600 mg PO HS Qty: 60 RF: 5 oxybutynin chloride 5 mg tablet extended release 24hr 5 mg PO HS Qty: 30 RF: 11 ascorbic acid (vitamin C) 500 mg tablet 500 mg PO QAM RF: 0 ferrous sulfate [FeroSul] 325 mg (65 mg iron) tablet 325 mg PO QAM RF: 0 Centrum Silver Women 8 mg iron-400 mcg-300 mcg tablet 1 tab PO QAM RF: 0 aspirin [Adult Low Dose Aspirin] 81 mg tablet,delayed release (DR/EC) 81 mg PO QAM RF: 0 ipratropium bromide 0.03 % spray,non-aerosol 2 spray intranasal BID PRN (Reason: drainage ) Qty: 30 RF: 2 cyanocobalamin (vitamin B-12) [Vitamin B-12] 1,000 mcg Tablet 1,000 mcg PO QAM RF: 0 cholecalciferol (vitamin D3) [Vitamin D3] 2,000 unit Tablet 2,000 unit PO QAM RF: 0 vitamin A 8,000 unit Capsule 0 unit PO QAM RF: 0 vitamin E 100 unit Capsule 0 unit PO QAM RF: 0 Changed tramadol 50 mg tablet 50 mg PO Q6H PRN (Reason: pain) Qty: 20 RF: 0 Discharge Orders: Discharge Order (Routine); Ordered 11/03/20 Ordered By: Frank Park Admission Data Admit Date/Time: 10/28/20 16:29 Attending Provider: Frank Park Admit Provider: Suleiman Dietz Primary Care Provider: Rome Castellanos Other Providers: [facility] ; Frank Park ; Nithin Moore Other Interventions: Discharge Summary Assessment (RN) Last Done: 11/03/20 11:59 Coding Level of Care Code D/C Day Management >30 mins Diagnoses Closed wedge compression fracture of T11 vertebra S22.080A Fall W19.XXXA Encounter type: initial encounter HTN (hypertension), benign I10 Nonischemic cardiomyopathy I42.8 Right-sided chest pain R07.9 Hypothyroidism E03.9 Mixed stress and urge incontinence N39.46 DVT prophylaxis Z29.9
== END 2020-11-03 15:09 | disposition home health service (06) ==
LOC: ED 12:45 → INTOOBSV 16:29 → SUATTDRO 16:29 → 3E 16:29

== ENCOUNTER 2020-11-22 19:50 | Inpatient (IN) ==
[2020-11-22] MEDS ORDERED: SODIUM CHLORIDE 0.9% 1000ML 1,000 ML IV STA (20:27)
[2020-11-22] MEDS ORDERED: CIPROFLOXACIN / D5W 400 MG/200 ML BAG IV STA (20:27)
--- NOTE | 2020-11-22 20:34 | Emergency Department Note ---
History of Present Illness General Chief complaint: Urinary Symptoms Stated complaint: urinary symptom, won't eat, weakness Time Seen by Provider: 11/22/20 20:01 Source: patient Mode of arrival: ambulatory Limitations: no limitations History of Present Illness Provider complaint: Lower abdominal pain Maximum Pain Intensity: 10 Patient reports that she was diagnosed with a UTI. She was started on Bactrim today. She took 1 dose. She states that she fell in early September and had a compression fracture of her spine. She is still suffering from this as well. The patient states that she has not been eating for the past several days. She in general does not feel well. Her urine culture from the first shows Klebsiella. It is sensitive to everything but intermediate for Rocephin. The patient has no chest pains or shortness of breath. Nothing makes her symptoms better. Home Medications Medication Instructions Recorded Confirmed Type cholecalciferol (vitamin D3) 2,000 unit PO QAM 08/05/18 11/22/20 History [Vitamin D3] cyanocobalamin (vitamin B-12) 1,000 mcg PO QAM 08/05/18 11/22/20 History [Vitamin B-12] ascorbic acid (vitamin C) 500 mg 500 mg PO QAM tab 02/26/19 11/22/20 History tablet levothyroxine 150 mcg tablet 150 mcg PO QAM #90 tab 12/07/19 11/22/20 Rx atorvastatin 40 mg tablet 40 mg PO HS #90 tab 02/21/20 11/22/20 Rx pantoprazole 40 mg tablet,delayed 40 mg PO QAM #30 tab 05/15/20 11/22/20 Rx release aspirin 81 mg tablet,delayed 81 mg PO QAM 08/21/20 11/22/20 History release ferrous sulfate 325 mg (65 mg 325 mg PO QAM 08/21/20 11/22/20 History iron) tablet multivit with 1 tab PO QAM 08/21/20 11/22/20 History zlxskpkx-xkgs-JC-lutein 8 mg iron-400 mcg-300 mcg tablet gabapentin 300 mg capsule 600 mg PO HS #60 cap 09/05/20 11/22/20 Rx oxybutynin chloride 5 mg 5 mg PO HS #30 tab 09/05/20 11/22/20 Rx tablet,extended release 24 hr vitamin A 0 unit PO QAM 10/28/20 11/22/20 History vitamin E 0 unit PO QAM 10/28/20 11/22/20 History acetaminophen 1,000 mg PO TID #0 tab 11/03/20 11/22/20 Rx lidocaine 1 patch TRANSDERMAL QAM #15 ea 11/03/20 11/22/20 Rx tramadol 50 mg PO Q6H PRN #20 tab 11/03/20 11/22/20 Rx lisinopril 10 mg tablet 10 mg PO DAILY #30 tab 11/08/20 11/22/20 Rx sulfamethoxazole 800 1 tab PO BID 5 Days #10 tab 11/22/20 11/22/20 Rx mg-trimethoprim 160 mg tablet Allergies Allergy/AdvReac Type Severity Reaction Status Date / Time celecoxib Allergy Severe SX OF Verified 11/17/20 15:54 STROKE, FACIAL NUMBNESS, UNABLE TO SPEAK fesoterodine [From Tov[facility]] Allergy Unknown Unknown Verified 11/17/20 15:54 solifenacin [From [facility]are] Allergy Unknown Unknown Verified 11/17/20 15:54 morphine AdvReac Intermediate Confusion Verified 11/17/20 15:54 ciprofloxacin AdvReac Mild UPSET Verified 11/17/20 15:54 STOMACH metronidazole AdvReac Mild N/V Verified 11/17/20 15:54 Past Med/Surg History Medical History Acute back pain Anemia Cardiac defibrillator in place Cardiomyopathy Carotid artery stenosis Chronic pancreatitis CKD (chronic kidney disease) stage 3, GFR 30-59 ml/min Degenerative joint disease (DJD) of hip Diabetes mellitus, type 2 Diabetic nephropathy Diabetic peripheral neuropathy Diverticulitis Diverticulosis of colon Duodenal ulcer Fall GERD (gastroesophageal reflux disease) GERD without esophagitis HLD (hyperlipidemia) HTN (hypertension), benign Hypercholesterolemia Hypothyroid IBS (irritable bowel syndrome) ICD (implantable cardioverter-defibrillator) battery depletion Insomnia Lumbar canal stenosis Lumbar spondylosis Nocturia Nonischemic cardiomyopathy Osteoarthritis Osteoporosis Presence of cardiac pacemaker Pulmonary nodule Rib fracture 09/17/18 R/T FALL. D/C'D TO [facility]. Scaphoid fracture of wrist Urge incontinence of urine Vitamin D deficiency, unspecified Surgical History History of cardiac cath PER PT, 5-10 YEARS AGO AT [facility] - REASON? 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 S/P kyphoplasty S/P partial colectomy S/P rotator cuff surgery Family History Son Diabetes Sister Breast cancer Denies family history of Ovarian cancer Prostate cancer Hearing loss No family history of adverse response to anesthesia No family history of bleeding disorder Heart disease Allergies Myocardial infarction Colorectal cancer Cancer Hypertension Stroke Asthma Social History Smoking Status: Never smoker Second Hand Exposure: No; Hx Alcohol Use: No Hx Substance Use: No Preferred Language: Cuban Communication Ability: Effective Visual Impairment: No Limitations Hearing Ability: Normal Warehouse Guard Required: No Beliefs That Will Affect Care: None marital status: Current Living Situation: Spouse current occupational status: retired current occupation: retired from career with [employer] How many Children do You have: 4 Feels Safe at Home: Yes Childhood Exposure to Second-Hand Smoke: No Dental Care, Regularly: No Physical Activity Frequency: Does not Exercise Seatbelt Use: always Sunscreen Use: No Assistive Devices: Walker Review of Systems A total of 10 systems reviewed and were otherwise negative Physical Exam Vital Signs Vital Signs - 24 hr 11/22/20 19:56 11/22/20 21:40 11/22/20 21:59 Temperature 36.1 C L Temperature Source Temporal Artery Scan Pulse Rate 104 H Pulse Rate [Finger] 84 Pulse Rate from SpO2 Sensor Pulse Rhythm Regular Pulse Rhythm [Finger] Regular Pulse Strength Normal Respiratory Rate 20 18 Respiratory Effort / Characteristics Non-Labored Non-Labored Spontaneous Respiratory Depth Normal Normal Respiratory Pattern Regular Regular Blood Pressure 189/99 H Blood Pressure [Right Arm] 175/95 H Blood Pressure Mean 129 Blood Pressure Mean [Right Arm] 121 Blood Pressure Position Sitting Blood Pressure Position [Right Arm] Lying Pulse Oximetry 92 95 95 Oxygen Delivery Method Room Air Room Air Room Air Sepsis Recent Fever Within 48 Hours No Sepsis New/Unexplained Change in Mental Status N/A Sepsis Action Taken by Nursing No Action Required 11/22/20 22:00 Temperature Temperature Source Pulse Rate 82 Pulse Rate [Finger] Pulse Rate from SpO2 Sensor 82 Pulse Rhythm Pulse Rhythm [Finger] Pulse Strength Respiratory Rate 19 Respiratory Effort / Characteristics Respiratory Depth Respiratory Pattern Blood Pressure 181/98 H Blood Pressure [Right Arm] Blood Pressure Mean 125 Blood Pressure Mean [Right Arm] Blood Pressure Position Blood Pressure Position [Right Arm] Pulse Oximetry 96 Oxygen Delivery Method Sepsis Recent Fever Within 48 Hours Sepsis New/Unexplained Change in Mental Status Sepsis Action Taken by Nursing CONSTITUTIONAL/VITAL SIGNS: Reviewed / noted above. GENERAL: Non-toxic in appearance. INTEGUMENTARY: Warm, dry, and [place]. HEAD: Normocephalic. EYES: without scleral icterus or trauma. ENT/OROPHARYNX: clear and moist. LYMPHADENOPATHY/NECK: Is supple without lymphadenopathy or meningismus. RESPIRATORY: Lungs clear and equal. CARDIOVASCULAR: Regular rate and rhythm. GI/ABDOMEN: Soft and nontender. No organomegaly or pulsatile mass. No rebound or guarding. Normal bowel sounds. EXTREMITIES: Warm and well perfused. BACK: No CVA tenderness. NEUROLOGICAL: Intact without focal deficits. PSYCHIATRIC: normal affect. MUSCULOSKELETAL: Normally developed with good muscle tone. Bedside ultrasound of the bladder shows that her bladder is full. She does report the sensation that she has to pee. TRIAGE NURSING DOCUMENTATION REVIEWED. Course Administered Medications Discontinued Medications Sodium Chloride (Nss 1000ml) 1,000 mls @ 999 mls/hr IV .Q1H1M STA Stop: 11/22/20 21:27 Last Infusion: 11/22/20 22:35 Dose: 0 mls/hr Documented by: [id number] Admin: 11/22/20 21:31 Dose: 999 mls/hr Documented by: [id number] Ciprofloxacin (Cipro / D5w) 400 mg in 200 mls @ 100 mls/hr IV NOW STA; Protocol Stop: 11/22/20 22:26 Last Admin: 11/22/20 21:50 Dose: 100 mls/hr Documented by: [id number] Ondansetron HCl (Ondansetron Inj 2 Mg/Ml 2 Ml Vial) 4 mg IV NOW STA Stop: 11/22/20 22:35 Last Admin: 11/22/20 22:41 Dose: 4 mg Documented by: [id number] Medical Decision Making Differential Diagnosis Differential includes acute coronary syndrome, myocardial infarction, CVA, TIA, anemia, infection, pneumonia, UTI, pyelonephritis, poor nutrition, dehydration, electrolyte disturbance,hypoglycemia. Medical Records Attestation: I reviewed the patient's medical records. Home Medications Current Medication List: was personally reviewed by me Laboratory Data Attestation: I reviewed the patient's lab results. Result diagrams: 11/22/20 21:10 11/22/20 21:10 Lab Results 11/22/20 11/22/20 11/22/20 Range/Units 21:10 21:10 21:10 WBC 8.35 (4.8-10.8) K/uL RBC 4.95 (4.2-5.4) M/uL Hgb 16.6 H (12.0-16.0) g/dL Hct 49.8 H (37-47) % MCV 100.6 H (80-100) fL MCH 33.5 (25-34) pg MCHC 33.3 (32-36) g/dL RDW Std Deviation 50.2 H (36.4-46.3) fL RDW Coeff of Radha 13.6 (11.5-14.5) % Plt Count 268 (130-400) K/uL MPV 10.9 H (7.4-10.4) fL Immature Gran % (Auto) 0.1 % Neut % (Auto) 68.1 % Lymph % (Auto) 20.7 % [place] % (Auto) 10.3 % Eos % (Auto) 0.7 % Baso % (Auto) 0.1 % Neut # (Auto) 5.68 (1.4-6.5) K/uL Lymph # (Auto) 1.73 (1.2-3.4) K/uL [place] # (Auto) 0.86 H (0.11-0.59) K/uL Eos # (Auto) 0.06 (0-0.5) K/uL Baso # (Auto) 0.01 (0-0.2) K/uL Immature Gran # (Auto) 0.01 (0.00-0.02) K/uL Sodium 142 (136-145) mmol/L Potassium 3.1 L (3.5-5.1) mmol/L Chloride 104 (98-107) mmol/L Carbon Dioxide 30 (21-32) mmol/L Anion Gap 8.0 (3-11) BUN 19 H (7-18) mg/dl Creatinine 1.23 H (0.6-1.2) mg/dl Est Cr Clr Drug Dosing Not Reportable Est GFR ( Amer) 45.7 Est GFR (Non-Af Amer) 39.4 BUN/Creatinine Ratio 15.5 (10-20) Glucose 145 H (70-99) mg/dl Lactate 1.8 (0.4-2.0) mmol/L Calcium 10.4 H (8.5-10.1) mg/dl Total Bilirubin 1.0 (0.2-1) mg/dl AST 23 (15-37) U/L ALT 23 (12-78) U/L Alkaline Phosphatase 173 H (45-117) U/L Total Protein 8.5 H (6.4-8.2) gm/dl Albumin 4.0 (3.4-5.0) gm/dl Globulin 4.5 H (2.5-4.0) gm/dl Albumin/Globulin Ratio 0.9 (0.9-2) Lipase 115 (73-393) U/L Urine Color Urine Appearance (Clear) Urine pH (4.5-7.5) Ur Specific [place] (1.000-1.030) Urine Protein (Negative) Urine Glucose (UA) (Negative) Urine Ketones (Negative) Urine Blood (Negative) Urine Nitrite (Negative) Urine Bilirubin (Negative) Urine Urobilinogen (Negative) Ur Leukocyte Esterase (Negative) Urine WBC (Auto) (0-5) /hpf Urine RBC (Auto) (0-4) /hpf U Hyaline Cast (Auto) (0-5) /lpf U Epithel Cells (Auto) (0-5) /lpf Urine Bacteria (Auto) (Negative) 11/22/20 Range/Units 21:20 WBC (4.8-10.8) K/uL RBC (4.2-5.4) M/uL Hgb (12.0-16.0) g/dL Hct (37-47) % MCV (80-100) fL MCH (25-34) pg MCHC (32-36) g/dL RDW Std Deviation (36.4-46.3) fL RDW Coeff of Radha (11.5-14.5) % Plt Count (130-400) K/uL MPV (7.4-10.4) fL Immature Gran % (Auto) % Neut % (Auto) % Lymph % (Auto) % [place] % (Auto) % Eos % (Auto) % Baso % (Auto) % Neut # (Auto) (1.4-6.5) K/uL Lymph # (Auto) (1.2-3.4) K/uL [place] # (Auto) (0.11-0.59) K/uL Eos # (Auto) (0-0.5) K/uL Baso # (Auto) (0-0.2) K/uL Immature Gran # (Auto) (0.00-0.02) K/uL Sodium (136-145) mmol/L Potassium (3.5-5.1) mmol/L Chloride (98-107) mmol/L Carbon Dioxide (21-32) mmol/L Anion Gap (3-11) BUN (7-18) mg/dl Creatinine (0.6-1.2) mg/dl Est Cr Clr Drug Dosing Est GFR ( Amer) Est GFR (Non-Af Amer) BUN/Creatinine Ratio (10-20) Glucose (70-99) mg/dl Lactate (0.4-2.0) mmol/L Calcium (8.5-10.1) mg/dl Total Bilirubin (0.2-1) mg/dl AST (15-37) U/L ALT (12-78) U/L Alkaline Phosphatase (45-117) U/L Total Protein (6.4-8.2) gm/dl Albumin (3.4-5.0) gm/dl Globulin (2.5-4.0) gm/dl Albumin/Globulin Ratio (0.9-2) Lipase (73-393) U/L Urine Color Yellow Urine Appearance Cloudy A (Clear) Urine pH 6.5 (4.5-7.5) Ur Specific [place] 1.017 (1.000-1.030) Urine Protein Trace H (Negative) Urine Glucose (UA) Negative (Negative) Urine Ketones 1+ H (Negative) Urine Blood Negative (Negative) Urine Nitrite Negative (Negative) Urine Bilirubin Negative (Negative) Urine Urobilinogen Negative (Negative) Ur Leukocyte Esterase Negative (Negative) Urine WBC (Auto) 1-5 (0-5) /hpf Urine RBC (Auto) 0-4 (0-4) /hpf U Hyaline Cast (Auto) 0 (0-5) /lpf U Epithel Cells (Auto) 5-10 H (0-5) /lpf Urine Bacteria (Auto) 4+ H (Negative) Imaging Data Radiologist's Impression: CT scan of the abdomen pelvis: Fecal impaction in the rectosigmoid colon. Colonic diverticula without diverticulitis. Appendix not identified. Cholecystectomy and pneumobilia from previous sphincterotomy. Dyst rophic calcifications in the pancreas suggesting chronic pancreatitis. Presacral edema. Left hip prosthesis. Compression fracture T11. T12 vertebroplasty. ECG Data Attestation: I personally reviewed and interpreted this ECG as follows: Indication: + abdominal pain Rate (beats per minute): 94 Rhythm: + normal sinus ECG ST segments: no ST elevation ECG Findings: no PVCs MDM Narrative Patient presents with lower abdominal pain and recent diagnosis of UTI. Started on Bactrim today. Urinalysis was performed 2 days ago. Culture shows Klebsiella that is sensitive to everything but Rocephin. Has suprapubic tenderness on my exam. The patient's CBC was unremarkable. Chemistry panel was also unremarkable. Bedside ultrasound was performed and showed a full bladder. The patient was unable to urinate. She was having urinary retention. A Bruce catheter was placed on the urine was removed from the bladder. About 600 cc was obtained. The urinalysis is suggestive of an infection. CAT scan of the abdomen pelvis was performed and reveals a fecal impaction at the rectosigmoid colon but no acute findings. The patient was told the results. She had nausea during her stay. She was treated with IV Zofran. She was also given IV Cipro for urinary tract infection. She was given some IV fluids. The patient would benefit from an overnight stay to monitor her symptoms and ensure that she is not getting worse that she is nauseated and having urinary retention issues with her UTI. She will be seen by the hospitalist for further evaluation and care. I did offer the patient disimpaction for her constipation. She declined this and states that she will try to move her bowels. She is sitting on the toilet. Impression & Plan Acute UTI, Urinary retention, Nausea, Constipation Discharge Plan Visit Data Chief Complaint: Urinary Symptoms Stated Complaint: urinary symptom, won't eat, weakness ED Provider: Pro Flores Discharge Problem: Acute UTI, Urinary retention, Nausea, Constipation Patient Disposition: Being Evaluated by Hospitalist Forms Stand Alone Forms: My [facility] Prescriptions Prescriptions: No Action levothyroxine 150 mcg tablet 150 mcg PO QAM Qty: 90 RF: 3 atorvastatin 40 mg tablet 40 mg PO HS Qty: 90 RF: 3 pantoprazole 40 mg tablet,delayed release (DR/EC) 40 mg PO QAM Qty: 30 RF: 11 gabapentin 300 mg capsule 600 mg PO HS Qty: 60 RF: 5 oxybutynin chloride 5 mg tablet extended release 24hr 5 mg PO HS Qty: 30 RF: 11 lisinopril 10 mg tablet 10 mg PO DAILY Qty: 30 RF: 6 sulfamethoxazole-trimethoprim [Bactrim DS] 800-160 mg tablet 1 tab PO BID 5 Days Qty: 10 RF: 0 ascorbic acid (vitamin C) 500 mg tablet 500 mg PO QAM RF: 0 ferrous sulfate [FeroSul] 325 mg (65 mg iron) tablet 325 mg PO QAM RF: 0 Centrum Silver Women 8 mg iron-400 mcg-300 mcg tablet 1 tab PO QAM RF: 0 aspirin [Adult Low Dose Aspirin] 81 mg tablet,delayed release (DR/EC) 81 mg PO QAM RF: 0 cyanocobalamin (vitamin B-12) [Vitamin B-12] 1,000 mcg Tablet 1,000 mcg PO QAM RF: 0 cholecalciferol (vitamin D3) [Vitamin D3] 2,000 unit Tablet 2,000 unit PO QAM RF: 0 vitamin A 8,000 unit Capsule 0 unit PO QAM RF: 0 vitamin E 100 unit Capsule 0 unit PO QAM RF: 0 acetaminophen 500 mg Tablet 1,000 mg PO TID Qty: 0 RF: 0 lidocaine 5 % Adhesive Patch,Medicated 1 patch transdermal QAM Qty: 15 RF: 0 tramadol 50 mg tablet 50 mg PO Q6H PRN (Reason: pain) Qty: 20 RF: 0 Referrals Referrals: Rome Castellanos MD [Primary Care Provider] -
[2020-11-22 21:20] LABS: Basophils # (auto) 0.01 K/uL (0-0.2); Basophils % (auto) 0.1 %; Eosinophils # (auto) 0.06 K/uL (0-0.5); Eosinophils % (auto) 0.7 %; Hematocrit (blood only) 49.8 % (37-47); Hemoglobin 16.6 g/dL (12.0-16.0); Immature Granulocytes # (auto) 0.01 K/uL (0.00-0.02); Immature Granulocytes % (auto) 0.1 %; Lymphocytes # (auto) 1.73 K/uL (1.2-3.4); Lymphocytes % (auto) 20.7 %; Mean Corpuscular Hemoglobin 33.5 pg (25-34); Mean Corpuscular Hgb Conc 33.3 g/dL (32-36); Mean Corpuscular Volume 100.6 fL (80-100); Mean Platelet Volume 10.9 fL (7.4-10.4); Monocytes # (auto) 0.86 K/uL (0.11-0.59); Monocytes % (auto) 10.3 %; Neutrophils # (auto) 5.68 K/uL (1.4-6.5); Neutrophils % (auto) 68.1 %; Platelet Count 268 K/uL (130-400); RDW Coefficient of Variation 13.6 % (11.5-14.5); RDW Standard Deviation 50.2 fL (36.4-46.3); Red Blood Count 4.95 M/uL (4.2-5.4); White Blood Count 8.35 K/uL (4.8-10.8)
[2020-11-22 21:36] LABS: Appearance Urine Cloudy (Clear); Bacteria Urine Automated 4+ (Negative); Bilirubin Urine Negative (Negative); Blood Urine Negative (Negative); Cast Urine Automated 0 /lpf (0-5); Color Urine Yellow; Glucose Urine UA Negative (Negative); Ketones Urine 1+ (Negative); Leukocyte Esterase Urine Negative (Negative); Nitrite Urine Negative (Negative); Protein Urine Trace (Negative); RBC Urine Automated 0-4 /hpf (0-4); Specific Gravity Urine 1.017 (1.000-1.030); Urobilinogen Urine Negative (Negative); pH Urine 6.5 (4.5-7.5)
[2020-11-22 21:44] LABS: Alanine Aminotransferase 23 U/L (12-78); Albumin Globulin Ratio 0.9 (0.9-2); Alkaline Phosphatase 173 U/L (45-117); Aspartate Aminotransferase 23 U/L (15-37); BUN Creatinine Ratio 15.5 (10-20); Blood Urea Nitrogen 19 mg/dl (7-18); Calcium 10.4 mg/dl (8.5-10.1); Carbon Dioxide 30 mmol/L (21-32); Chloride 104 mmol/L (98-107); Est GFR (African American) 45.7; Est GFR (Non-African American) 39.4; Globulin 4.5 gm/dl (2.5-4.0); Glucose 145 mg/dl (70-99); Lipase 115 U/L (73-393); Potassium 3.1 mmol/L (3.5-5.1); Sodium 142 mmol/L (136-145); Total Protein 8.5 gm/dl (6.4-8.2)
[2020-11-22] MEDS ORDERED: ONDANSETRON INJ 2 MG/ML 2 ML VIAL IV STA (22:34)
--- NOTE | 2020-11-22 23:37 | History & Physical Report ---
Date of Service November 22, 2020 Assessment & Plan (1) Acute UTI: Acute urinary tract infection/mixed stress and urge incontinence- Previous infections with Klebsiella aerogenes that are pansensitive except intermediate to ceftriaxone. Given Cipro IV in ED. Placed on levofloxacin 500 mg IV daily. Follow urine culture and sensitivities Received 1 L normal saline in ED. Continue IV fluids at 60 mils per hour. If patient decides that she would like a Bruce catheter placed will do so, but she does not want to at this time. Monitor for local irritation Present on Admission?: Yes (2) Mixed stress and urge incontinence: See above. Continue oxybutynin Likely being aggravated by fecal impaction. Patient does not want a suppository. Present on Admission?: Yes (3) Closed wedge compression fracture of T11 vertebra: She continued to have discomfort, although it is slowly improving. She typically takes 2 Tylenol as needed during the day for pain relief Present on Admission?: Yes (4) Myasthenia gravis, AChR antibody positive: If fatigue persists beyond excepted interval for a UTI, should consult neurology Present on Admission?: Yes (5) Hypertension, essential: Continue aspirin. Hold lisinopril Present on Admission?: Yes (6) Hypothyroidism: Continue levothyroxine 150 mcg daily Present on Admission?: Yes History of Present Illness Chief Complaint: The patient presents to the emergency department with complaint of worsening generalized weakness, decreased appetite and increased urinary frequency and discomfort. Primary Care Provider: Adriano Castellanos MD The patient is an 85-year-old female with a past medical history including mixed stress and urge incontinence, T11 compression fracture, myasthenia gravis AChR antibody positive, essential hypertension, hypothyroidism, diabetes mellitus, vitamin D deficiency, insomnia, irritable bowel syndrome, hypercholesterolemia, GERD, diabetic peripheral neuropathy, carotid artery stenosis, nonischemic cardiomyopathy, hypothyroidism, and status post ICD. She presents with symptoms as noted above. Her most recent hospitalization at [facility] was from 10/28- 11/03/2020. Previous urinary tract infections on 09/01/2020 and 11/20/2020 were positive for Klebsiella aerogenes pansensitive except intermediated for ceftr iaxone. She continues to report pain over her T11 and T12 vertebral fractures. Allergies Allergy/AdvReac Type Severity Reaction Status Date / Time celecoxib Allergy Severe SX OF Verified 11/17/20 15:54 STROKE, FACIAL NUMBNESS, UNABLE TO SPEAK fesoterodine [From Toviaz] Allergy Unknown Unknown Verified 11/17/20 15:54 solifenacin [From Vesicare] Allergy Unknown Unknown Verified 11/17/20 15:54 morphine AdvReac Intermediate Confusion Verified 11/17/20 15:54 ciprofloxacin AdvReac Mild UPSET Verified 11/17/20 15:54 STOMACH metronidazole AdvReac Mild N/V Verified 11/17/20 15:54 Home Medications Medication Instructions Recorded Confirmed Type cholecalciferol (vitamin D3) 2,000 unit PO QAM 08/05/18 11/22/20 History [Vitamin D3] cyanocobalamin (vitamin B-12) 1,000 mcg PO QAM 08/05/18 11/22/20 History [Vitamin B-12] ascorbic acid (vitamin C) 500 mg 500 mg PO QAM tab 02/26/19 11/22/20 History tablet levothyroxine 150 mcg tablet 150 mcg PO QAM #90 tab 12/07/19 11/22/20 Rx atorvastatin 40 mg tablet 40 mg PO HS #90 tab 02/21/20 11/22/20 Rx pantoprazole 40 mg tablet,delayed 40 mg PO QAM #30 tab 05/15/20 11/22/20 Rx release aspirin 81 mg tablet,delayed 81 mg PO QAM 08/21/20 11/22/20 History release ferrous sulfate 325 mg (65 mg 325 mg PO QAM 08/21/20 11/22/20 History iron) tablet multivit with 1 tab PO QAM 08/21/20 11/22/20 History oygxpict-nzpx-YF-lutein 8 mg iron-400 mcg-300 mcg tablet gabapentin 300 mg capsule 600 mg PO HS #60 cap 09/05/20 11/22/20 Rx oxybutynin chloride 5 mg 5 mg PO HS #30 tab 09/05/20 11/22/20 Rx tablet,extended release 24 hr vitamin A 0 unit PO QAM 10/28/20 11/22/20 History vitamin E 0 unit PO QAM 10/28/20 11/22/20 History acetaminophen 1,000 mg PO TID #0 tab 11/03/20 11/22/20 Rx lidocaine 1 patch TRANSDERMAL QAM #15 ea 11/03/20 11/22/20 Rx tramadol 50 mg PO Q6H PRN #20 tab 11/03/20 11/22/20 Rx lisinopril 10 mg tablet 10 mg PO DAILY #30 tab 11/08/20 11/22/20 Rx sulfamethoxazole 800 1 tab PO BID 5 Days #10 tab 11/22/20 11/22/20 Rx mg-trimethoprim 160 mg tablet Past Med/Surg History Medical History Acute back pain Anemia Cardiac defibrillator in place Cardiomyopathy Carotid artery stenosis Chronic pancreatitis CKD (chronic kidney disease) stage 3, GFR 30-59 ml/min Degenerative joint disease (DJD) of hip Diabetes mellitus, type 2 Diabetic nephropathy Diabetic peripheral neuropathy Diverticulitis Diverticulosis of colon Duodenal ulcer Fall GERD (gastroesophageal reflux disease) GERD without esophagitis HLD (hyperlipidemia) HTN (hypertension), benign Hypercholesterolemia Hypothyroid IBS (irritable bowel syndrome) ICD (implantable cardioverter-defibrillator) battery depletion Insomnia Lumbar canal stenosis Lumbar spondylosis Nocturia Nonischemic cardiomyopathy Osteoarthritis Osteoporosis Presence of cardiac pacemaker Pulmonary nodule Rib fracture 09/17/18 R/T FALL. D/C'D TO [facility]. Scaphoid fracture of wrist Urge incontinence of urine Vitamin D deficiency, unspecified Surgical History History of cardiac cath PER PT, 5-10 YEARS AGO AT [facility] - REASON? 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 S/P kyphoplasty S/P partial colectomy S/P rotator cuff surgery Family History Son Diabetes Sister Breast cancer Denies family history of Ovarian cancer Prostate cancer Hearing loss No family history of adverse response to anesthesia No family history of bleeding disorder Heart disease Allergies Myocardial infarction Colorectal cancer Cancer Hypertension Stroke Asthma Social History Smoking Status: Never smoker Second Hand Exposure: No; Hx Alcohol Use: No Hx Substance Use: No Preferred Language: Omani Communication Ability: Effective Visual Impairment: No Limitations Hearing Ability: Normal Managing Attorney Required: No Beliefs That Will Affect Care: None marital status: Current Living Situation: Spouse current occupational status: retired current occupation: retired from career with [employer] How many Children do You have: 4 Feels Safe at Home: Yes Childhood Exposure to Second-Hand Smoke: No Dental Care, Regularly: No Physical Activity Frequency: Does not Exercise Seatbelt Use: always Sunscreen Use: No Assistive Devices: Walker Review of Systems Review of Systems: The patient denies chest pain, palpitations, shortness of breath, dyspnea on exertion, cough, lower extremity swelling, sore throat, fevers, chills, sweats, vomiting, diarrhea, blood in urine or stool, lightheadedness, dizziness, headache, memory loss, loss of consciousness, abnormal bruising or bleeding, imbalance, focal weakness, numbness or tingling in arms or legs, neck pain, or night sweats. The review of systems is otherwise negative other than for that already noted above, and at least 10 systems have been reviewed. Physical Exam Physical Exam: The patient is awake, alert and oriented 3, looks very fatigued, normocephalic and atraumatic, lying in bed and in no acute distress. HEENT--PERRL, EOMI, mucous membranes and oropharynx dry. Neck--supple. No JVD. No bruits. Thyroid normal, trachea midline, no adenopathy. Heart--normal S1 and S2. No murmurs, rubs or gallops. Lungs--clear bilaterally, no respiratory distress, no accessory muscle use. Abdomen--normal bowel sounds and soft. Nontender. Nondistended. Extremities--no cyanosis or clubbing. No edema. Dermatologic--normal skin turgor, normal color, no abnormal lymph nodes, no rash. Neurologic--cranial nerves II through XII grossly intact. Rheumatologic--limited exam Psychiatric--normal affect. Results & Data Results & Data ([facility]) Vital Signs (Past 12 Hours) Vital Signs Temp Pulse Pulse Resp BP BP Pulse Ox 11/22/20 23:00 87 21 177/107 H 92 11/22/20 22:00 82 19 181/98 H 96 03/03/21 21:59 95 11/22/20 21:40 84 18 175/95 H 95 11/22/20 19:56 97.0 F L 104 H 20 189/99 H 92 Laboratory Results Laboratory Results WBC 8.35 K/uL (4.8-10.8) 11/22/20 21:10 RBC 4.95 M/uL (4.2-5.4) 11/22/20 21:10 Hgb 16.6 g/dL (12.0-16.0) H 11/22/20 21:10 Hct 49.8 % (37-47) H 11/22/20 21:10 MCV 100.6 fL (80-100) H 11/22/20 21:10 MCH 33.5 pg (25-34) 11/22/20 21:10 MCHC 33.3 g/dL (32-36) 11/22/20 21:10 RDW Std Deviation 50.2 fL (36.4-46.3) H 11/22/20 21:10 RDW Coeff of Radha 13.6 % (11.5-14.5) 11/22/20 21:10 Plt Count 268 K/uL (130-400) 11/22/20 21:10 MPV 10.9 fL (7.4-10.4) H 11/22/20 21:10 Immature Gran % (Auto) 0.1 % 11/22/20 21:10 Neut % (Auto) 68.1 % 11/22/20 21:10 Lymph % (Auto) 20.7 % 11/22/20 21:10 [place] % (Auto) 10.3 % 11/22/20 21:10 Eos % (Auto) 0.7 % 11/22/20 21:10 Baso % (Auto) 0.1 % 11/22/20 21:10 Neut # (Auto) 5.68 K/uL (1.4-6.5) 11/22/20 21:10 Lymph # (Auto) 1.73 K/uL (1.2-3.4) 11/22/20 21:10 [place] # (Auto) 0.86 K/uL (0.11-0.59) H 11/22/20 21:10 Eos # (Auto) 0.06 K/uL (0-0.5) 11/22/20 21:10 Baso # (Auto) 0.01 K/uL (0-0.2) 11/22/20 21:10 Immature Gran # (Auto) 0.01 K/uL (0.00-0.02) 11/22/20 21:10 Sodium 142 mmol/L (136-145) 11/22/20 21:10 Potassium 3.1 mmol/L (3.5-5.1) L 11/22/20 21:10 Chloride 104 mmol/L (98-107) 11/22/20 21:10 Carbon Dioxide 30 mmol/L (21-32) 11/22/20 21:10 Anion Gap 8.0 (3-11) 11/22/20 21:10 BUN 19 mg/dl (7-18) H 11/22/20 21:10 Creatinine 1.23 mg/dl (0.6-1.2) H 11/22/20 21:10 Est Cr Clr Drug Dosing Not Reportable 11/22/20 21:10 Est GFR ( Amer) 45.7 11/22/20 21:10 Est GFR (Non-Af Amer) 39.4 11/22/20 21:10 BUN/Creatinine Ratio 15.5 (10-20) 11/22/20 21:10 Glucose 145 mg/dl (70-99) H 11/22/20 21:10 Lactate 1.8 mmol/L (0.4-2.0) 11/22/20 21:10 Calcium 10.4 mg/dl (8.5-10.1) H 11/22/20 21:10 Total Bilirubin 1.0 mg/dl (0.2-1) 11/22/20 21:10 AST 23 U/L (15-37) 11/22/20 21:10 ALT 23 U/L (12-78) 11/22/20 21:10 Alkaline Phosphatase 173 U/L (45-117) H 11/22/20 21:10 Total Protein 8.5 gm/dl (6.4-8.2) H 11/22/20 21:10 Albumin 4.0 gm/dl (3.4-5.0) 11/22/20 21:10 Globulin 4.5 gm/dl (2.5-4.0) H 11/22/20 21:10 Albumin/Globulin Ratio 0.9 (0.9-2) 11/22/20 21:10 Lipase 115 U/L (73-393) 11/22/20 21:10 Urine Color Yellow 11/22/20 21:20 Urine Appearance Cloudy (Clear) A 11/22/20 21:20 Urine pH 6.5 (4.5-7.5) 11/22/20 21:20 Ur Specific [place] 1.017 (1.000-1.030) 11/22/20 21:20 Urine Protein Trace (Negative) H 11/22/20 21:20 Urine Glucose (UA) Negative (Negative) 11/22/20 21:20 Urine Ketones 1+ (Negative) H 11/22/20 21:20 Urine Blood Negative (Negative) 11/22/20 21:20 Urine Nitrite Negative (Negative) 11/22/20 21:20 Urine Bilirubin Negative (Negative) 11/22/20 21:20 Urine Urobilinogen Negative (Negative) 11/22/20 21:20 Ur Leukocyte Esterase Negative (Negative) 11/22/20 21:20 Urine WBC (Auto) 1-5 /hpf (0-5) 11/22/20 21:20 Urine RBC (Auto) 0-4 /hpf (0-4) 11/22/20 21:20 U Hyaline Cast (Auto) 0 /lpf (0-5) 11/22/20 21:20 U Epithel Cells (Auto) 5-10 /lpf (0-5) H 11/22/20 21:20 Urine Bacteria (Auto) 4+ (Negative) H 11/22/20 21:20 COVID-19 Eval Order Covid19 IDNow [facility] 11/22/20 23:00 SARS-CoV-2, RNA, NAAT NEGATIVE (NEGATIVE) 11/22/20 23:00 Diagnostic Findings [facility] Patient: OLE PATTON (Female) : 31 Status: ER Date: 11/22/20 21:59 Room #: History: lower abd pain Slices: [phone] Priors: Tech: Zion Naik @ [phone] Exams: CT ABDOMEN & PELVIS Without Contrast Contrast: Accession Numbers: [id number] Preliminary Findings Only See Final Report For Complete Findings CT ABDOMEN & PELVIS Without Contrast: Fecal impaction in the rectosigmoid colon. Colonic diverticula without diverticulitis. Appendix not identified. Cholecystectomy and pneumobilia from previous sphincterotomy. Dystrophic calcifications in the pancreas suggesting chronic pancreatitis. Presacral edema. Left hip prosthesis. Compression fracture of T11 T12 vertebroplasty Radiologist: Chika Maldonado M.D. Study ready at 22:08 and initial results transmitted at 22:31 *This report constitutes a preliminary interpretation only. Non-acute findings felt to be unrelated to the clinical presentation may not be discussed in this report. The study will be interpreted and a final report will be generated by the local Radiologist the following shift. To reach the hospital radiology department call [phone]. If a discrepancy is found between the preliminary and final interpretations of this study, please notify us via our Client Portal at [email or web address], under QA Exams.You can also fax this report with a description of the discrepancy, or include the final report, to our daytime fax number [phone].If faxing, please indicate the severity of discrepancy using one of the following categories: [ ] 1 - Agree/Informational [ ] 2 - Unlikely to Affect Management [ ] 3 - Possible Eventual Change of Management [ ] 4 - Probable Immediate Change of Management For all other patient related information, please fax us at [phone]. [id number] Code Status & VTE Plan Code Status Full code VTE Prophylaxis Plan VTE Prophylaxis will be ordered: Yes PG Care Time/CCT Total # of Minutes Spent Total Time Spent with Patient: Total time spent is greater than 50% in coordination of care (as documented) at patient's floor/unit and/or counseling patient: Coding Level of Care Code 94260 OBS Care - Level 3 Diagnoses Acute UTI N39.0 Mixed stress and urge incontinence N39.46 Closed wedge compression fracture of T11 vertebra S22.080A Myasthenia gravis, AChR antibody positive G70.00 Hypertension, essential I10 Hypothyroidism E03.9
[2020-11-23] MEDS ORDERED: ONDANSETRON INJ 2 MG/ML 2 ML VIAL IV PRN (01:25)
[2020-11-23] MEDS ORDERED: POLYETHYLENE (MIRALAX) 17 GM PACK PO PRN (01:38)
[2020-11-23] MEDS: HYDROCODONE/ACETAMOPHEN 5/325MG TAB PO PRN (02:01)
[2020-11-23] MEDS ORDERED: levoFLOXacin/D5W 500 MG/100 ML BAG IV SCH (06:00)
[2020-11-23] MEDS: LEVOTHYROXINE SODIUM 150 MCG TABLET PO SCH (06:02)
[2020-11-23 06:36] LABS: Basophils # (auto) 0.01 K/uL (0-0.2); Basophils % (auto) 0.1 %; Eosinophils % (auto) 1.1 %; Hemoglobin 15.4 g/dL (12.0-16.0); Immature Granulocytes # (auto) 0.02 K/uL (0.00-0.02); Immature Granulocytes % (auto) 0.2 %; Lymphocytes # (auto) 2.61 K/uL (1.2-3.4); Lymphocytes % (auto) 27.8 %; Mean Corpuscular Hemoglobin 33.2 pg (25-34); Mean Corpuscular Hgb Conc 33.5 g/dL (32-36); Mean Corpuscular Volume 99.1 fL (80-100); Monocytes # (auto) 0.98 K/uL (0.11-0.59); Monocytes % (auto) 10.4 %; Neutrophils # (auto) 5.66 K/uL (1.4-6.5); Neutrophils % (auto) 60.4 %; Platelet Count 172 K/uL (130-400); RDW Coefficient of Variation 13.8 % (11.5-14.5); RDW Standard Deviation 49.1 fL (36.4-46.3); Red Blood Count 4.64 M/uL (4.2-5.4); White Blood Count 9.38 K/uL (4.8-10.8)
[2020-11-23 07:15] LABS: Albumin Level 3.4 gm/dl (3.4-5.0); BUN Creatinine Ratio 15.2 (10-20); Calcium 9.2 mg/dl (8.5-10.1); Creatinine Clr Calc Pharmacy 30.8 ml/min; Est GFR (African American) 51.7; Est GFR (Non-African American) 44.6; Potassium 3.4 mmol/L (3.5-5.1)
[2020-11-23 07:18] LABS: Albumin Globulin Ratio 0.9 (0.9-2); Bilirubin,Total 0.8 mg/dl (0.2-1); Globulin 3.7 gm/dl (2.5-4.0); Total Protein 7.1 gm/dl (6.4-8.2)
--- NOTE | 2020-11-23 08:04 | CT Scan Report ---
ABDOMEN AND PELVIS CT WITHOUT CONTRAST CT DOSE: 265.13 mGy.cm HISTORY: Acute lower abdominal pain with urinary tract infection. lower abd pain, current uti TECHNIQUE: Multiaxial CT images of the abdomen and pelvis were performed without contrast. A dose lo wering technique was utilized adhering to the principles of ALARA. COMPARISON STUDY: KUB 11/01/2020, chest CT 10/28/2020, CT abdomen and pelvis 10/01/2019 FINDINGS: Trace right pleural effusion with mild dependent consolidation of the posterior basal segment right l ower lobe. There is no pneumatosis or pneumoperitoneum. Partially imaged pacer leads. Trace pericardi al effusion. Heart is normal in size. The unenhanced spleen, adrenal glands and liver are unremarkable. Cholecystectomy with unchanged pneu mobilia suggestive of prior sternotomy. Moderate atrophy of the pancreas with peripancreatic calcific ations suggestive of chronic pancreatitis. There is mild nonspecific bilateral perinephric stranding. Mildly atrophic left kidney. No urolith or obstructive uropathy. Partially decompressed urinary blad gume with mild wall thickening. The pelvic structures are suboptimally visualized secondary to streak artifact from left hip total joint arthroplasty. Uterus appears to be surgically absent. No adnexal m ass lesion. Extensive calcified plaque of the abdominal aorta. No adenopathy. There is no bowel obstruction. Marked fecal retention of the rectum measuring up to 8.8 cm transverse ly. Mild rectal wall thickening with perirectal stranding and trace free fluid within the dependent p emile/presacral distribution. Colonic diverticulosis. The appendix is not diagnostically visualized a nd is reportedly surgically absent. Unremarkable soft tissues. Degenerative changes of the spine, pel vis and right hip. Left hip total joint arthroplasty. Mid lumbar dextroscoliosis. Chronic T12 donovan gage deformity with kyphoplasty changes. Subacute fracture at T11 with progressive superior and infer ior endplate compression now approximately 30%. No retropulsion. There is new vacuum disc phenomenon at T10-T11. Subtle acute nondisplaced fractures involve the spinous processes at T9 and T10 which saleem ear new from comparison, best seen on the sagittal images. IMPRESSION: 1. No bowel obstruction or pneumoperitoneum. 2. Constipation with marked fecal retention of the rectum. Rectal wall thickening with perirectal str anding and trace presacral free fluid is suggestive of associated stercoral proctitis. 3. Progressive superior and inferior endplate vertebral body height loss involving the subacute T11 c ompression deformity without retropulsion. 4. Subtle acute nondisplaced fractures are also noted involving the spinous processes at T9 and T10 w hich appear new from 10/28/2020. 5. Trace right pleural effusion with persistent right lung base consolidation suggestive of atelectas is versus pneumonia. 6. Chronic findings as above. ACT 112: Negative or not required by law. The above report was generated using voice recognition software. It may contain grammatical, syntax o r spelling errors. Electronically signed by: Froylan Kuo M.D. 11/23/2020 8:03 AM
[2020-11-23] MEDS ORDERED: CYANOCOBALAMIN 500 MCG TABLET (VITAMIN B-12) PO SCH (09:00)
[2020-11-23] MEDS ORDERED: CHOLECALCIFEROL 1,000 UNITS 25 MCG TAB PO SCH (09:00)
[2020-11-23] MEDS: ASPIRIN 81 MG ECTAB PO SCH (10:00)
[2020-11-23] MEDS: LIDOCAINE 5% 1 PATCH TD SCH (10:01)
[2020-11-23] MEDS: PANTOprazole 40 MG TAB PO SCH (10:01)
[2020-11-23] MEDS ORDERED: METOCLOPRAMIDE HCL INJ 5 MG/ML 2 ML VIAL IV STA (11:09)
--- NOTE | 2020-11-23 13:29 | Hospitalist Progress Note ---
Date of Service November 23, 2020 Assessment & Plan (1) Acute UTI: Acute urinary tract infection/mixed stress and urge incontinence- Previous infections with Klebsiella aerogenes that are pansensitive except intermediate to ceftriaxone. continue levofloxacin 500 mg IV daily. Follow urine culture and sensitivities Received 1 L normal saline in ED. appears dry, place on NSS + 20mEq at 100mL/hr no fever, WBC normal, vitals stable (2) Mixed stress and urge incontinence: See above. Continue oxybutynin Likely being aggravated by fecal impaction. Patient does not want a suppository. (3) Closed wedge compression fracture of T11 vertebra: She continued to have discomfort, although it is slowly improving. She typically takes 2 Tylenol as needed during the day for pain relief will get PT/OT tomorrow, she does not want to go to rehab no recent falls at home which is good (4) Myasthenia gravis, AChR antibody positive: monitor for excessive fatigue (5) Hypertension, essential: resume Lisinopril (6) Hypothyroidism: Continue levothyroxine 150 mcg daily Admission and Anticipated Discharge Date Admission Date: November 22, 2020 Subjective patient reports that she has not felt well for about 3 days prior to admission not eating or drinking much of anything, very weak, frequent urination but no dysuria continues to have back pain from prior compression fractures no recent falls at home, no fever, no dyspnea, no cough, no chest pain, no abdominal pain no diarrhea, had a BM two days ago, has been experiencing some nausea and vomiting today reviewed chart from admission reviewed labs, WBC 9k, Cr 1.1, k 3.4 will give IV fluids with K, continue levaquin Urine culture from 11/20 with klebsiella, sensitive to quinolones Review of Systems Review of Systems: All systems reviewed & are unremarkable except as noted in Subjective Constitutional: + fatigue, + malaise and + weakness; no fever, no chills and no sweats Respiratory: no cough and no dyspnea Cardiovascular: no chest pain and no edema Gastrointestinal: + early satiety, + nausea and + vomiting; no abdominal pain, no constipation and no diarrhea/loose stools Genitourinary: + urinary frequency; no dysuria Musculoskeletal: + back pain Physical Exam Constitutional: well developed, + ill appearing, + thin and + frail appearing; no acute distress and + not appropriately hydrated Neck: trachea midline, no thyromegaly Respiratory: normal respiratory effort, lungs clear to auscultation Cardiovascular: RRR, no murmur, no edema Gastrointestinal (Abdomen): normal bowel sounds, soft, nontender, no hepatosplenomegaly Musculoskeletal: Head/Neck/Chest: normocephalic, head atraumatic and neck supple Spine: + limited thoraco-lumbar ROM (due to pain) Extremities: extremities normal to inspection and + abnormal strength (generalized weakness); no cyanosis, no clubbing and no petechiae Skin: no rashes, warm and dry Neurologic: patellar DTR's 2+ bilat, sensation intact and PERRL, EOMI, accommodation nl, no face palsy, no dysarthria Psychiatric: A+Ox3, euthymic affect Lymphatic: no cervical or axillary lymphadenopathy Results & Data Results & Data ([facility]) Vital Signs (Past 12 Hours) Vital Signs Temp Pulse Resp BP Pulse Ox 11/23/20 07:32 37.1 C 86 16 156/82 H 90 Laboratory Results Laboratory Results - last 24 hr 11/22/20 11/22/20 11/22/20 21:10 21:10 21:10 WBC 8.35 RBC 4.95 Hgb 16.6 H Hct 49.8 H MCV 100.6 H MCH 33.5 MCHC 33.3 RDW Std Deviation 50.2 H RDW Coeff of Radha 13.6 Plt Count 268 MPV 10.9 H Immature Gran % (Auto) 0.1 Neut % (Auto) 68.1 Lymph % (Auto) 20.7 Rogers % (Auto) 10.3 Eos % (Auto) 0.7 Baso % (Auto) 0.1 Neut # (Auto) 5.68 Lymph # (Auto) 1.73 Rogers # (Auto) 0.86 H Eos # (Auto) 0.06 Baso # (Auto) 0.01 Immature Gran # (Auto) 0.01 Sodium 142 Potassium 3.1 L Chloride 104 Carbon Dioxide 30 Anion Gap 8.0 BUN 19 H Creatinine 1.23 H Est Cr Clr Drug Dosing Not Reportable Est GFR ( Amer) 45.7 Est GFR (Non-Af Amer) 39.4 BUN/Creatinine Ratio 15.5 Glucose 145 H Lactate 1.8 Calcium 10.4 H Total Bilirubin 1.0 AST 23 ALT 23 Alkaline Phosphatase 173 H Total Protein 8.5 H Albumin 4.0 Globulin 4.5 H Albumin/Globulin Ratio 0.9 Lipase 115 Urine Color Urine Appearance Urine pH Ur Specific Winn Urine Protein Urine Glucose (UA) Urine Ketones Urine Blood Urine Nitrite Urine Bilirubin Urine Urobilinogen Ur Leukocyte Esterase Urine WBC (Auto) Urine RBC (Auto) U Hyaline Cast (Auto) U Epithel Cells (Auto) Urine Bacteria (Auto) COVID-19 Eval Order SARS-CoV-2, RNA, NAAT 11/22/20 11/22/20 11/22/20 21:20 23:00 23:00 WBC RBC Hgb Hct MCV MCH MCHC RDW Std Deviation RDW Coeff of Radha Plt Count MPV Immature Gran % (Auto) Neut % (Auto) Lymph % (Auto) Rogers % (Auto) Eos % (Auto) Baso % (Auto) Neut # (Auto) Lymph # (Auto) Rogers # (Auto) Eos # (Auto) Baso # (Auto) Immature Gran # (Auto) Sodium Potassium Chloride Carbon Dioxide Anion Gap BUN Creatinine Est Cr Clr Drug Dosing Est GFR ( Amer) Est GFR (Non-Af Amer) BUN/Creatinine Ratio Glucose Lactate Calcium Total Bilirubin AST ALT Alkaline Phosphatase Total Protein Albumin Globulin Albumin/Globulin Ratio Lipase Urine Color Yellow Urine Appearance Cloudy A Urine pH 6.5 Ur Specific Winn 1.017 Urine Protein Trace H Urine Glucose (UA) Negative Urine Ketones 1+ H Urine Blood Negative Urine Nitrite Negative Urine Bilirubin Negative Urine Urobilinogen Negative Ur Leukocyte Esterase Negative Urine WBC (Auto) 1-5 Urine RBC (Auto) 0-4 U Hyaline Cast (Auto) 0 U Epithel Cells (Auto) 5-10 H Urine Bacteria (Auto) 4+ H COVID-19 Eval Order Covid19 IDNow atMMEC SARS-CoV-2, RNA, NAAT NEGATIVE 11/23/20 11/23/20 06:04 06:04 WBC 9.38 RBC 4.64 Hgb 15.4 Hct 46.0 MCV 99.1 MCH 33.2 MCHC 33.5 RDW Std Deviation 49.1 H RDW Coeff of Radha 13.8 Plt Count 172 MPV 11.0 H Immature Gran % (Auto) 0.2 Neut % (Auto) 60.4 Lymph % (Auto) 27.8 Rogers % (Auto) 10.4 Eos % (Auto) 1.1 Baso % (Auto) 0.1 Neut # (Auto) 5.66 Lymph # (Auto) 2.61 Rogers # (Auto) 0.98 H Eos # (Auto) 0.10 Baso # (Auto) 0.01 Immature Gran # (Auto) 0.02 Sodium 141 Potassium 3.4 L Chloride 107 Carbon Dioxide 30 Anion Gap 5.0 BUN 17 Creatinine 1.11 Est Cr Clr Drug Dosing 30.8 Est GFR ( Amer) 51.7 Est GFR (Non-Af Amer) 44.6 BUN/Creatinine Ratio 15.2 Glucose 107 H Lactate Calcium 9.2 Total Bilirubin 0.8 AST 22 ALT 19 Alkaline Phosphatase 140 H Total Protein 7.1 Albumin 3.4 Globulin 3.7 Albumin/Globulin Ratio 0.9 Lipase Urine Color Urine Appearance Urine pH Ur Specific Winn Urine Protein Urine Glucose (UA) Urine Ketones Urine Blood Urine Nitrite Urine Bilirubin Urine Urobilinogen Ur Leukocyte Esterase Urine WBC (Auto) Urine RBC (Auto) U Hyaline Cast (Auto) U Epithel Cells (Auto) Urine Bacteria (Auto) COVID-19 Eval Order SARS-CoV-2, RNA, NAAT Medications Administered Current Inpatient Medications Acetaminophen (Acetaminophen 325 Mg Tab) 650 mg PO Q4H PRN PRN Reason: pain/fever Stop: 12/23/20 01:24 Hydrocodone Bitart/Acetaminophen (Hydrocodone/Acetamophen 5/325mg Tab) 1 tab PO Q6H PRN PRN Reason: Moderate Pain Stop: 12/07/20 01:37 Last Admin: 11/23/20 02:01 Dose: 1 tab Documented by: Aspirin (Aspirin 81 Mg Ectab) [address] [facility] Stop: 12/23/20 08:59 Last Admin: 11/23/20 10:00 Dose: 81 mg Documented by: Atorvastatin Calcium (Atorvastatin 40 Mg Tab) 40 mg PO [facility] Stop: 12/23/20 20:59 Cyanocobalamin (Cyanocobalamin 500 Mcg Tablet (Vitamin B-12)) 1,[address] [facility] Stop: 12/23/20 08:59 Last Admin: 11/23/20 10:01 Dose: 1,000 mcg Documented by: Gabapentin (Gabapentin 300 Mg Cap) 600 mg PO [facility] Stop: 12/23/20 20:59 Levofloxacin/Dextrose (Levaquin/D5w) 250 mg in 50 mls @ 50 mls/hr IV Q24H [facility]; Protocol Stop: 12/02/20 06:59 Levothyroxine Sodium (Levothyroxine Sodium 150 Mcg Tablet) [facility] Stop: 12/23/20 06:29 Last Admin: 11/23/20 06:02 Dose: 150 mcg Documented by: Lidocaine (Lidocaine 5% 1 Patch) [address] [facility] Stop: 12/23/20 08:59 Last Admin: 11/23/20 10:01 Dose: Not Given Documented by: Miscellaneous (Remove Lidoderm Patch) 1 ea N/A DAILY@2100 [facility] Stop: 12/23/20 20:59 Ondansetron HCl (Ondansetron Inj 2 Mg/Ml 2 Ml Vial) 4 mg IV Q6H PRN PRN Reason: Nausea Stop: 12/23/20 01:24 Last Admin: 11/23/20 02:33 Dose: 4 mg Documented by: Oxybutynin Chloride (Oxybutynin Chloride Xl 5 Mg Tabcr) 5 mg PO [facility] Stop: 12/23/20 20:59 Pantoprazole Sodium (Pantoprazole 40 Mg Tab) [address] [facility] Stop: 12/23/20 08:59 Last Admin: 11/23/20 10:01 Dose: 40 mg Documented by: Polyethylene Glycol (Polyethylene (Miralax) 17 Gm Pack) 17 gm PO DAILY PRN PRN Reason: Constipation Stop: 12/23/20 01:37 Vitamin D (Cholecalciferol 1,000 Units 25 Mcg Tab) 2,[address] [facility] Stop: 12/23/20 08:59 Last Admin: 11/23/20 10:01 Dose: 2,000 units Documented by: PG Care Time/CCT Total # of Minutes Spent Total Time Spent with Patient: Total time spent is greater than 50% in coordination of care (as documented) at patient's floor/unit and/or counseling patient: Coding Level of Care Code 26826 Subseq Hosp Care Lvl 2 Diagnoses Acute UTI N39.0 Mixed stress and urge incontinence N39.46 Closed wedge compression fracture of T11 vertebra S22.080A Myasthenia gravis, AChR antibody positive G70.00 Hypertension, essential I10 Hypothyroidism E03.9
[2020-11-23] MEDS: NSS + 20MEQ KCL 20 MEQ/1,000 ML BAG IV SCH ×2 (14:33→23:59)
[2020-11-23] MEDS: GABAPENTIN 300 MG CAP PO SCH (20:38)
[2020-11-23] MEDS: OXYBUTYNIN CHLORIDE XL 5 MG TABCR PO SCH (20:39)
[2020-11-23] MEDS ORDERED: ATORVASTATIN 40 MG TAB PO SCH (21:00)
--- NOTE | 2020-11-23 23:24 | Electrocardiogram Report ---
Test Reason : Blood Pressure : / mmHG Vent. Rate : 094 BPM Atrial Rate : 094 BPM P-R Int : 132 ms QRS Dur : 092 ms QT Int : 354 ms P-R-T Axes : 079 -06 062 degrees QTc Int : 442 ms Normal sinus rhythm Normal ECG When compared with ECG of 28-OCT-2020 13:18, No significant change Confirmed by Kofi Domínguez ([id number]) on 11/23/2020 11:24:24 PM Referred By: REFERRED SELF Confirmed By:Kofi Domínguez
[2020-11-24] MEDS: LEVOTHYROXINE SODIUM 150 MCG TABLET PO SCH (06:09)
[2020-11-24] MEDS: levoFLOXacin/D5W 250 MG/50 ML BAG IV SCH (06:09)
[2020-11-24 06:43] LABS: Basophils # (auto) 0.01 K/uL (0-0.2); Basophils % (auto) 0.1 %; Eosinophils % (auto) 3.9 %; Hematocrit (blood only) 43.3 % (37-47); Immature Granulocytes # (auto) 0.02 K/uL (0.00-0.02); Immature Granulocytes % (auto) 0.3 %; Lymphocytes # (auto) 3.12 K/uL (1.2-3.4); Lymphocytes % (auto) 40.1 %; Mean Corpuscular Hemoglobin 33.1 pg (25-34); Mean Corpuscular Hgb Conc 32.3 g/dL (32-36); Mean Corpuscular Volume 102.4 fL (80-100); Mean Platelet Volume 10.4 fL (7.4-10.4); Monocytes # (auto) 0.83 K/uL (0.11-0.59); Monocytes % (auto) 10.7 %; Neutrophils % (auto) 44.9 %; Platelet Count 204 K/uL (130-400); RDW Standard Deviation 52.4 fL (36.4-46.3); Red Blood Count 4.23 M/uL (4.2-5.4); White Blood Count 7.78 K/uL (4.8-10.8)
[2020-11-24 07:03] LABS: Albumin Globulin Ratio 0.7 (0.9-2); Albumin Level 2.5 gm/dl (3.4-5.0); BUN Creatinine Ratio 15.6 (10-20); Bilirubin,Total 0.8 mg/dl (0.2-1); Calcium 8.5 mg/dl (8.5-10.1); Creatinine Clr Calc Pharmacy 36.4 ml/min; Est GFR (African American) 63.2; Est GFR (Non-African American) 54.5; Globulin 3.8 gm/dl (2.5-4.0); Total Protein 6.3 gm/dl (6.4-8.2)
[2020-11-24] MEDS: LIDOCAINE 5% 1 PATCH TD SCH (08:45)
[2020-11-24] MEDS: ASPIRIN 81 MG ECTAB PO SCH (08:45)
[2020-11-24] MEDS: PANTOprazole 40 MG TAB PO SCH (08:49)
[2020-11-24] MEDS: NSS + 20MEQ KCL 20 MEQ/1,000 ML BAG IV SCH ×2 (10:40→21:00)
[2020-11-24] MEDS: HYDROCODONE/ACETAMOPHEN 5/325MG TAB PO PRN ×2 (11:35→21:13)
[2020-11-24 20:36] LABS: Potassium 3.9 mmol/L (3.5-5.1)
[2020-11-24] MEDS: GABAPENTIN 300 MG CAP PO SCH (21:13)
[2020-11-24] MEDS: OXYBUTYNIN CHLORIDE XL 5 MG TABCR PO SCH (21:13)
--- NOTE | 2020-11-24 21:17 | Hospitalist Progress Note ---
Date of Service November 24, 2020 Assessment & Plan (1) Acute UTI: Acute urinary tract infection/mixed stress and urge incontinence- Previous infections with Klebsiella aerogenes that are pansensitive except intermediate to ceftriaxone. continue levofloxacin 500 mg IV daily. Follow urine culture and sensitivities - Klebsiella, sensitive to levofloxacin can change to PO after a few days, complete 10 days of treatment Received 1 L normal saline in ED. appears dry, place on NSS + 20mEq at 100mL/hr can stop fluids this evening no fever, WBC normal, vitals stable (2) Mixed stress and urge incontinence: See above. Continue oxybutynin Likely being aggravated by fecal impaction. Patient does not want a suppository. (3) Closed wedge compression fracture of T11 vertebra: She continued to have discomfort, although it is slowly improving. She typically takes 2 Tylenol as needed during the day for pain relief will get PT/OT, she does not want to go to rehab no recent falls at home which is good (4) Myasthenia gravis, AChR antibody positive: monitor for excessive fatigue (5) Hypertension, essential: resume Lisinopril (6) Hypothyroidism: Continue levothyroxine 150 mcg daily Admission and Anticipated Discharge Date Admission Date: November 22, 2020 Subjective patient feeling better, more energy today still with back pain eating a little better, no vomiting, no fever/chills, no dyspnea, no cough, no chest pain discussed benefits of rehab, will get PT/OT, she still wants to go home if possible Review of Systems Review of Systems: All systems reviewed & are unremarkable except as noted in Subjective Physical Exam Constitutional: well developed, + thin and + frail appearing; no acute distress Neck: trachea midline, no thyromegaly Respiratory: normal respiratory effort, lungs clear to auscultation Cardiovascular: RRR, no murmur, no edema Gastrointestinal (Abdomen): normal bowel sounds, soft, nontender, no hepatosplenomegaly Musculoskeletal: Head/Neck/Chest: normocephalic, head atraumatic and neck supple Spine: + limited thoraco-lumbar ROM (due to pain) Extremities: extremities normal to inspection and + abnormal strength (generalized weakness); no cyanosis, no clubbing and no petechiae Skin: no rashes, warm and dry Neurologic: patellar DTR's 2+ bilat, sensation intact and PERRL, EOMI, accommodation nl, no face palsy, no dysarthria Psychiatric: A+Ox3, euthymic affect Lymphatic: no cervical or axillary lymphadenopathy Results & Data Results & Data ([facility]) Vital Signs (Past 12 Hours) Vital Signs Temp Pulse Resp BP Pulse Ox 11/24/20 15:43 36.6 C 69 16 159/88 H 90 Laboratory Results Laboratory Results - last 24 hr 11/24/20 11/24/20 11/24/20 06:19 06:19 07:09 WBC 7.78 RBC 4.23 Hgb 14.0 Hct 43.3 MCV 102.4 H MCH 33.1 MCHC 32.3 RDW Std Deviation 52.4 H RDW Coeff of Radha 14.0 Plt Count 204 MPV 10.4 Immature Gran % (Auto) 0.3 Neut % (Auto) 44.9 Lymph % (Auto) 40.1 Sabine % (Auto) 10.7 Eos % (Auto) 3.9 Baso % (Auto) 0.1 Neut # (Auto) 3.50 Lymph # (Auto) 3.12 Sabine # (Auto) 0.83 H Eos # (Auto) 0.30 Baso # (Auto) 0.01 Immature Gran # (Auto) 0.02 Sodium 141 Potassium Cancelled Chloride 115 H Carbon Dioxide 24 Anion Gap 2.0 L BUN 15 Creatinine 0.94 Est Cr Clr Drug Dosing 36.4 Est GFR ( Amer) 63.2 Est GFR (Non-Af Amer) 54.5 BUN/Creatinine Ratio 15.6 Glucose 78 Calcium 8.5 Total Bilirubin 0.8 AST Cancelled ALT 17 Alkaline Phosphatase 107 Total Protein 6.3 L Albumin 2.5 L Globulin 3.8 Albumin/Globulin Ratio 0.7 L 11/24/20 20:14 WBC RBC Hgb Hct MCV MCH MCHC RDW Std Deviation RDW Coeff of Radha Plt Count MPV Immature Gran % (Auto) Neut % (Auto) Lymph % (Auto) Sabine % (Auto) Eos % (Auto) Baso % (Auto) Neut # (Auto) Lymph # (Auto) Sabine # (Auto) Eos # (Auto) Baso # (Auto) Immature Gran # (Auto) Sodium Potassium 3.9 Chloride Carbon Dioxide Anion Gap BUN Creatinine Est Cr Clr Drug Dosing Est GFR ( Amer) Est GFR (Non-Af Amer) BUN/Creatinine Ratio Glucose Calcium Total Bilirubin AST 21 ALT Alkaline Phosphatase Total Protein Albumin Globulin Albumin/Globulin Ratio Medications Administered Current Inpatient Medications Acetaminophen (Acetaminophen 325 Mg Tab) 650 mg PO Q4H PRN PRN Reason: pain/fever Stop: 12/23/20 01:24 Hydrocodone Bitart/Acetaminophen (Hydrocodone/Acetamophen 5/325mg Tab) 1 tab PO Q6H PRN PRN Reason: Moderate Pain Stop: 12/07/20 01:37 Last Admin: 11/24/20 21:13 Dose: 1 tab Documented by: Aspirin (Aspirin 81 Mg Ectab) 81 mg PO [facility] Stop: 12/23/20 08:59 Last Admin: 11/24/20 08:45 Dose: 81 mg Documented by: Gabapentin (Gabapentin 300 Mg Cap) 600 mg PO [facility] Stop: 12/23/20 20:59 Last Admin: 11/24/20 21:13 Dose: 600 mg Documented by: Levofloxacin/Dextrose (Levaquin/D5w) 250 mg in 50 mls @ 50 mls/hr IV Q24H [facility]; Protocol Stop: 12/02/20 06:59 Last Infusion: 11/24/20 07:09 Dose: Infused Documented by: Levothyroxine Sodium (Levothyroxine Sodium 150 Mcg Tablet) [facility] Stop[facility] 12/23/20 06:29 Last Admin: 11/24/20 06:09 Dose: 150 mcg Documented by: Lidocaine (Lidocaine 5% 1 Patch) 1 patch TD [facility] Stop: 12/23/20 08:59 Last Admin: 11/24/20 08:45 Dose: 1 patch Documented by: Miscellaneous (Remove Lidoderm Patch) 1 ea N/A DAILY@2100 [facility] Stop: 12/23/20 20:59 Last Admin: 11/24/20 21:14 Dose: 1 ea Documented by: Ondansetron HCl (Ondansetron Inj 2 Mg/Ml 2 Ml Vial) 4 mg IV Q6H PRN PRN Reason: Nausea Stop: 12/23/20 01:24 Last Admin: 11/23/20 02:33 Dose: 4 mg Documented by: Oxybutynin Chloride (Oxybutynin Chloride Xl 5 Mg Tabcr) 5 mg PO [facility] Stop: 12/23/20 20:59 Last Admin: 11/24/20 21:13 Dose: 5 mg Documented by: Pantoprazole Sodium (Pantoprazole 40 Mg Tab) 40 mg PO QAM [facility] Stop: 12/23/20 08:59 Last Admin: 11/24/20 08:49 Dose: 40 mg Documented by: Polyethylene Glycol (Polyethylene (Miralax) 17 Gm Pack) 17 gm PO DAILY PRN PRN Reason: Constipation Stop: 12/23/20 01:37 PG Care Time/CCT Total # of Minutes Spent Total Time Spent with Patient: Total time spent is greater than 50% in coordination of care (as documented) at patient's floor/unit and/or counseling patient: Coding Level of Care Code 13791 Subseq Hosp Care Lvl 2 Diagnoses Acute UTI N39.0 Mixed stress and urge incontinence N39.46 Closed wedge compression fracture of T11 vertebra S22.080A Myasthenia gravis, AChR antibody positive G70.00 Hypertension, essential I10 Hypothyroidism E03.9
[2020-11-25] MEDS: HYDROCODONE/ACETAMOPHEN 5/325MG TAB PO PRN ×2 (04:17→18:14)
[2020-11-25] MEDS: LEVOTHYROXINE SODIUM 150 MCG TABLET PO SCH (05:53)
[2020-11-25] MEDS: levoFLOXacin/D5W 250 MG/50 ML BAG IV SCH (05:55)
[2020-11-25 06:12] LABS: Basophils # (auto) 0.01 K/uL (0-0.2); Basophils % (auto) 0.1 %; Eosinophils # (auto) 0.43 K/uL (0-0.5); Eosinophils % (auto) 6.1 %; Hematocrit (blood only) 42.8 % (37-47); Hemoglobin 13.9 g/dL (12.0-16.0); Immature Granulocytes # (auto) 0.01 K/uL (0.00-0.02); Immature Granulocytes % (auto) 0.1 %; Lymphocytes # (auto) 2.85 K/uL (1.2-3.4); Lymphocytes % (auto) 40.5 %; Mean Corpuscular Hemoglobin 33.3 pg (25-34); Mean Corpuscular Hgb Conc 32.5 g/dL (32-36); Mean Corpuscular Volume 102.4 fL (80-100); Mean Platelet Volume 10.4 fL (7.4-10.4); Monocytes # (auto) 0.67 K/uL (0.11-0.59); Monocytes % (auto) 9.5 %; Neutrophils # (auto) 3.07 K/uL (1.4-6.5); Neutrophils % (auto) 43.7 %; Platelet Count 188 K/uL (130-400); RDW Coefficient of Variation 13.8 % (11.5-14.5); RDW Standard Deviation 51.8 fL (36.4-46.3); Red Blood Count 4.18 M/uL (4.2-5.4); White Blood Count 7.04 K/uL (4.8-10.8)
[2020-11-25 06:56] LABS: Albumin Level 2.9 gm/dl (3.4-5.0); BUN Creatinine Ratio 14.9 (10-20); Calcium 8.8 mg/dl (8.5-10.1); Creatinine Clr Calc Pharmacy 40.7 ml/min; Est GFR (African American) 72.4; Est GFR (Non-African American) 62.5; Potassium 3.8 mmol/L (3.5-5.1)
[2020-11-25 06:58] LABS: Albumin Globulin Ratio 0.9 (0.9-2); Bilirubin,Total 0.7 mg/dl (0.2-1); Globulin 3.3 gm/dl (2.5-4.0); Total Protein 6.2 gm/dl (6.4-8.2)
[2020-11-25] MEDS: LIDOCAINE 5% 1 PATCH TD SCH (09:15)
[2020-11-25] MEDS: ASPIRIN 81 MG ECTAB PO SCH (09:16)
[2020-11-25] MEDS: PANTOprazole 40 MG TAB PO SCH (09:16)
--- NOTE | 2020-11-25 14:47 | Hospitalist Progress Note ---
Date of Service November 25, 2020 Assessment & Plan (1) Acute UTI: Acute urinary tract infection/mixed stress and urge incontinence- Previous infections with Klebsiella aerogenes that are pansensitive except intermediate to ceftriaxone. continue levofloxacin 250 mg IV daily. Follow urine culture and sensitivities - Klebsiella, sensitive to levofloxacin can change to PO after a few days, complete 10 days of treatment Received 1 L normal saline in ED. then NSS + 20mEq at 100mL/hr fluids stopped 3/5 no fever, WBC normal, vitals stable (2) Mixed stress and urge incontinence: See above. Continue oxybutynin Likely being aggravated by fecal impaction. Patient does not want a suppository. (3) Closed wedge compression fracture of T11 vertebra: She continued to have discomfort, although it is slowly improving. She typically takes 2 Tylenol as needed during the day for pain relief will get PT/OT, she does not want to go to rehab no recent falls at home which is good will work on disposition, family wants her to go to rehab (4) Myasthenia gravis, AChR antibody positive: monitor for excessive fatigue (5) Hypertension, essential: resume Lisinopril (6) Hypothyroidism: Continue levothyroxine 150 mcg daily Admission and Anticipated Discharge Date Admission Date: November 22, 2020 Subjective patient sitting up eating lunch, says she continues to feel stronger still with back pain no dysuria or frequency or incontinence updated her daughter over the phone Review of Systems Review of Systems: All systems reviewed & are unremarkable except as noted in Subjective Physical Exam Constitutional: well developed, + thin and + frail appearing; no acute distress Neck: trachea midline, no thyromegaly Respiratory: normal respiratory effort, lungs clear to auscultation Cardiovascular: RRR, no murmur, no edema Gastrointestinal (Abdomen): normal bowel sounds, soft, nontender, no hepatosplenomegaly Musculoskeletal: Head/Neck/Chest: normocephalic, head atraumatic and neck supple Spine: + limited thoraco-lumbar ROM (due to pain) Extremities: extremities normal to inspection and + abnormal strength (generalized weakness); no cyanosis, no clubbing and no petechiae Skin: no rashes, warm and dry Neurologic: patellar DTR's 2+ bilat, sensation intact and PERRL, EOMI, accommodation nl, no face palsy, no dysarthria Psychiatric: A+Ox3, euthymic affect Lymphatic: no cervical or axillary lymphadenopathy Results & Data Results & Data ([facility]) Vital Signs (Past 12 Hours) Vital Signs Temp Pulse Resp BP Pulse Ox 11/25/20 07:14 36.6 C 71 18 156/82 H 90 Laboratory Results Laboratory Results - last 24 hr 11/24/20 11/25/20 11/25/20 20:14 05:48 05:48 WBC 7.04 RBC 4.18 L Hgb 13.9 Hct 42.8 MCV 102.4 H MCH 33.3 MCHC 32.5 RDW Std Deviation 51.8 H RDW Coeff of Radha 13.8 Plt Count 188 MPV 10.4 Immature Gran % (Auto) 0.1 Neut % (Auto) 43.7 Lymph % (Auto) 40.5 [place] % (Auto) 9.5 Eos % (Auto) 6.1 Baso % (Auto) 0.1 Neut # (Auto) 3.07 Lymph # (Auto) 2.85 [place] # (Auto) 0.67 H Eos # (Auto) 0.43 Baso # (Auto) 0.01 Immature Gran # (Auto) 0.01 Sodium 143 Potassium 3.9 3.8 Chloride 111 H Carbon Dioxide 29 Anion Gap 3.0 BUN 13 Creatinine 0.84 Est Cr Clr Drug Dosing 40.7 Est GFR ( Amer) 72.4 Est GFR (Non-Af Amer) 62.5 BUN/Creatinine Ratio 14.9 Glucose 88 Calcium 8.8 Total Bilirubin 0.7 AST 21 20 ALT 16 Alkaline Phosphatase 111 Total Protein 6.2 L Albumin 2.9 L Globulin 3.3 Albumin/Globulin Ratio 0.9 Medications Administered Current Inpatient Medications Acetaminophen (Acetaminophen 325 Mg Tab) 650 mg PO Q4H PRN PRN Reason: pain/fever Stop: 12/23/20 01:24 Hydrocodone Bitart/Acetaminophen (Hydrocodone/Acetamophen 5/325mg Tab) 1 tab PO Q6H PRN PRN Reason: Moderate Pain Stop: 12/07/20 01:37 Last Admin: 11/25/20 04:17 Dose: 1 tab Documented by: Aspirin (Aspirin 81 Mg Ectab) [facility] [place]: 12/23/20 08:59 Last Admin: 11/25/20 09:16 Dose: 81 mg Documented by: Gabapentin (Gabapentin 300 Mg Cap) 600 mg PO HS [facility] Stop: 12/23/20 20:59 Last Admin: 11/24/20 21:13 Dose: 600 mg Documented by: Levofloxacin/Dextrose (Levaquin/D5w) 250 mg in 50 mls @ 50 mls/hr IV Q24H [facility]; Protocol Stop: 12/02/20 06:59 Last Infusion: 11/25/20 07:06 Dose: Infused Documented by: Levothyroxine Sodium (Levothyroxine Sodium 150 Mcg Tablet) [facility] Stop: 12/23/20 06:29 Last Admin: 11/25/20 05:53 Dose: 150 mcg Documented by: Lidocaine (Lidocaine 5% 1 Patch) 1 patch TD [facility] Stop: 12/23/20 08:59 Last Admin: 11/25/20 09:15 Dose: 1 patch Documented by: Miscellaneous (Remove Lidoderm Patch) 1 ea N/A DAILY@2100 [facility] Stop: 12/23/20 20:59 Last Admin: 11/24/20 21:14 Dose: 1 ea Documented by: Ondansetron HCl (Ondansetron Inj 2 Mg/Ml 2 Ml Vial) 4 mg IV Q6H PRN PRN Reason: Nausea Stop: 12/23/20 01:24 Last Admin: 11/23/20 02:33 Dose: 4 mg Documented by: Oxybutynin Chloride (Oxybutynin Chloride Xl 5 Mg Tabcr) 5 mg PO [facility] Stop: 12/23/20 20:59 Last Admin: 11/24/20 21:13 Dose: 5 mg Documented by: Pantoprazole Sodium (Pantoprazole 40 Mg Tab) 40 mg PO [facility] Stop: 12/23/20 08:59 Last Admin: 11/25/20 09:16 Dose: 40 mg Documented by: Polyethylene Glycol (Polyethylene (Miralax) 17 Gm Pack) 17 gm PO DAILY PRN PRN Reason: Constipation Stop: 12/23/20 01:37 Last Admin: 11/25/20 13:40 Dose: 17 gm Documented by: PG Care Time/CCT Total # of Minutes Spent Total Time Spent with Patient: Total time spent is greater than 50% in coordination of care (as documented) at patient's floor/unit and/or counseling patient: Coding Level of Care Code 32402 Subseq Hosp Care Lvl 2 Diagnoses Acute UTI N39.0 Mixed stress and urge incontinence N39.46 Closed wedge compression fracture of T11 vertebra S22.080A Myasthenia gravis, AChR antibody positive G70.00 Hypertension, essential I10 Hypothyroidism E03.9
[2020-11-25] MEDS: OXYBUTYNIN CHLORIDE XL 5 MG TABCR PO SCH (19:55)
[2020-11-25] MEDS: GABAPENTIN 300 MG CAP PO SCH (19:55)
[2020-11-26] MEDS: LEVOTHYROXINE SODIUM 150 MCG TABLET PO SCH (05:53)
[2020-11-26] MEDS: ACETAMINOPHEN 325 MG TAB PO PRN ×2 (08:04→20:38)
[2020-11-26] MEDS: ASPIRIN 81 MG ECTAB PO SCH (09:10)
[2020-11-26] MEDS: PANTOprazole 40 MG TAB PO SCH (09:10)
[2020-11-26] MEDS: levoFLOXacin 250 MG TABLET PO SCH (09:10)
[2020-11-26] MEDS: LIDOCAINE 5% 1 PATCH TD SCH (09:10)
[2020-11-26] MEDS: HYDROCODONE/ACETAMOPHEN 5/325MG TAB PO PRN ×2 (13:22→22:27)
--- NOTE | 2020-11-26 16:21 | Hospitalist Progress Note ---
Date of Service November 26, 2020 Assessment & Plan (1) Acute UTI: Acute urinary tract infection/mixed stress and urge incontinence- Previous infections with Klebsiella aerogenes that are pansensitive except intermediate to ceftriaxone. continue levofloxacin 250 mg IV daily. Follow urine culture and sensitivities - Klebsiella, sensitive to levofloxacin can change to PO tomorrow, complete 10 days of treatment Received 1 L normal saline in ED. then NSS + 20mEq at 100mL/hr fluids stopped 11/24 no fever, WBC normal, vitals stable (2) Mixed stress and urge incontinence: See above. Continue oxybutynin Likely being aggravated by fecal impaction - disimpacted today (11/26) (3) Closed wedge compression fracture of T11 vertebra: She continued to have discomfort, although it is slowly improving. She typically takes 2 Tylenol as needed during the day for pain relief will get PT/OT, she does not want to go to rehab no recent falls at home which is good will work on disposition, family wants her to go to rehab but she will not agree might consider new [facility] facility she wants to go home to get her second COVID shot on Friday (4) Myasthenia gravis, AChR antibody positive: monitor for excessive fatigue, has not been an issue (5) Hypertension, essential: resume Lisinopril (6) Hypothyroidism: Continue levothyroxine 150 mcg daily (7) Fecal impaction in rectum: hard stool in rectal vault, able to remove fair amount today spent 20 minutes at the bedside will give Miralax and Colace, try to fully empty colon Admission and Anticipated Discharge Date Admission Date: November 22, 2020 Subjective patient having some low back pain again today she complains of some liquid stool, incontinent, had this problem for some time she has been impacted for a while was able to manually disimpact her at the bedside, fair amount of solid stool removed will give her Colace and Miralax right now to try to clean out bowels she is eating well, no breathing issues no labs today updated her daughter at the bedside therapy recommending rehab, patient does not want to go, she might consider going to [facility] but wants the new building discussed that I am not sure when the new facility opens either way, she seems fairly committed to going back home, says she needs to get her second COVID vaccine shot on [place] Review of Systems Review of Systems: All systems reviewed & are unremarkable except as noted in Subjective Constitutional: + weakness; no fever, no chills, no sweats and no fatigue Respiratory: no cough and no dyspnea Cardiovascular: no chest pain Gastrointestinal: + constipation and + fecal incontinence (liquid stool around impaction); no abdominal pain, no nausea and no vomiting Musculoskeletal: + back pain Physical Exam Constitutional: well developed, + thin and + frail appearing; no acute distress Neck: trachea midline, no thyromegaly Respiratory: normal respiratory effort, lungs clear to auscultation Cardiovascular: RRR, no murmur, no edema Gastrointestinal (Abdomen): normal bowel sounds, soft, nontender, no hepatosplenomegaly Rectal Exam: + fecal impaction Musculoskeletal: Head/Neck/Chest: normocephalic, head atraumatic and neck supple Spine: + limited thoraco-lumbar ROM (due to pain) Extremities: extremities normal to inspection and + abnormal strength (generalized weakness); no cyanosis, no clubbing and no petechiae Skin: no rashes, warm and dry Neurologic: patellar DTR's 2+ bilat, sensation intact and PERRL, EOMI, accommodation nl, no face palsy, no dysarthria Psychiatric: A+Ox3, euthymic affect Lymphatic: no cervical or axillary lymphadenopathy Results & Data Results & Data ([facility]) Vital Signs (Past 12 Hours) Vital Signs Temp Pulse Resp BP Pulse Ox 11/26/20 15:46 36.5 C 84 18 94 11/26/20 07:27 36.7 C 79 18 168/74 H 91 Medications Administered Current Inpatient Medications Acetaminophen (Acetaminophen 325 Mg Tab) 650 mg PO Q4H PRN PRN Reason: pain/fever Stop: 12/23/20 01:24 Last Admin: 11/26/20 08:04 Dose: 650 mg Documented by: Hydrocodone Bitart/Acetaminophen (Hydrocodone/Acetamophen 5/325mg Tab) 1 tab PO Q6H PRN PRN Reason: Moderate Pain Stop: 12/07/20 01:37 Last Admin: 11/26/20 13:22 Dose: 1 tab Documented by: Aspirin (Aspirin 81 Mg Ectab) [facility] [place] Stop: 12/23/20 08:59 Last Admin: 11/26/20 09:10 Dose: 81 mg Documented by: Gabapentin (Gabapentin 300 Mg Cap) 600 mg PO [facility] Stop: 12/23/20 20:59 Last Admin: 11/25/20 19:55 Dose: 600 mg Documented by: Levofloxacin (Levofloxacin 250 Mg Tablet) 250 mg PO DAILY@1100 [facility]; Protocol Stop: 12/02/20 11:01 Last Admin: 11/26/20 09:10 Dose: 250 mg Documented by: Levothyroxine Sodium (Levothyroxine Sodium 150 Mcg Tablet) [facility] Stop: 12/23/20 06:29 Last Admin: 11/26/20 05:53 Dose: 150 mcg Documented by: Lidocaine (Lidocaine 5% 1 Patch) 1 patch TD [facility] Stop: 12/23/20 08:59 Last Admin: 11/26/20 09:10 Dose: 1 patch Documented by: Miscellaneous (Remove Lidoderm Patch) 1 ea N/A DAILY@2100 [facility] Stop: 12/23/20 20:59 Last Admin: 11/25/20 19:56 Dose: 1 ea Documented by: Ondansetron HCl (Ondansetron Inj 2 Mg/Ml 2 Ml Vial) 4 mg IV Q6H PRN PRN Reason: Nausea Stop: 12/23/20 01:24 Last Admin: 11/23/20 02:33 Dose: 4 mg Documented by: Oxybutynin Chloride (Oxybutynin Chloride Xl 5 Mg Tabcr) 5 mg PO [facility] Stop: 12/23/20 20:59 Last Admin: 11/25/20 19:55 Dose: 5 mg Documented by: Pantoprazole Sodium (Pantoprazole 40 Mg Tab) 40 mg PO [facility] Stop: 12/23/20 08:59 Last Admin: 11/26/20 09:10 Dose: 40 mg Documented by: Polyethylene Glycol (Polyethylene (Miralax) 17 Gm Pack) 17 gm PO DAILY PRN PRN Reason: Constipation Stop: 12/23/20 01:37 Last Admin: 11/25/20 13:40 Dose: 17 gm Documented by: PG Care Time/CCT Total # of Minutes Spent Total Time Spent: 40 Total Time Spent with Patient: Total time spent is greater than 50% in coordination of care (as documented) at patient's floor/unit and/or counseling patient: Coding Level of Care Code 13364 Subseq Hosp Care Lvl 3 Diagnoses Acute UTI N39.0 Mixed stress and urge incontinence N39.46 Closed wedge compression fracture of T11 vertebra S22.080A Myasthenia gravis, AChR antibody positive G70.00 Hypertension, essential I10 Hypothyroidism E03.9 Fecal impaction in rectum K56.41
[2020-11-26] MEDS: POLYETHYLENE (MIRALAX) 17 GM PACK PO SCH (17:05)
[2020-11-26] MEDS: OXYBUTYNIN CHLORIDE XL 5 MG TABCR PO SCH (20:34)
[2020-11-26] MEDS: GABAPENTIN 300 MG CAP PO SCH (20:34)
[2020-11-26] MEDS: DOCUSATE SODIUM 100 MG CAP PO SCH (20:34)
[2020-11-27] MEDS: HYDROCODONE/ACETAMOPHEN 5/325MG TAB PO PRN ×3 (05:50→19:40)
[2020-11-27] MEDS: LEVOTHYROXINE SODIUM 150 MCG TABLET PO SCH (05:51)
[2020-11-27] MEDS: POLYETHYLENE (MIRALAX) 17 GM PACK PO SCH (08:03)
[2020-11-27] MEDS: PANTOprazole 40 MG TAB PO SCH (08:03)
[2020-11-27] MEDS: DOCUSATE SODIUM 100 MG CAP PO SCH ×2 (08:03→19:45)
[2020-11-27] MEDS: ASPIRIN 81 MG ECTAB PO SCH (08:03)
[2020-11-27] MEDS: LIDOCAINE 5% 1 PATCH TD SCH (08:06)
[2020-11-27] MEDS: ACETAMINOPHEN 325 MG TAB PO PRN ×2 (08:09→15:46)
[2020-11-27] MEDS: levoFLOXacin 250 MG TABLET PO SCH (12:02)
--- NOTE | 2020-11-27 15:25 | CT Scan Report ---
CT SCAN OF THE THORACIC SPINE WITHOUT IV CONTRAST CLINICAL HISTORY: Thoracic back pain. COMPARISON STUDY: CT of the thoracic spine dated 10/28/2020. TECHNIQUE: CT scan of the thoracic spine is performed from the lower cervical spine to the upper lumb ar spine. Images are reviewed in the axial, sagittal, and coronal planes. IV contrast was not adminis tered for this examination. A dose lowering technique was utilized adhering to the principles of SABINA Patel. CT DOSE: 692.51 mGy.cm FINDINGS: The skeletal structures are osteopenic. There is a chronic compression deformity of T12 wit h mild loss of height and evidence of previous vertebroplasty. There is a subacute superior compressi on fracture of T11 with mild to moderate loss of height. No retropulsed fragments are identified. Los s of height has modestly increased from 10/28/2020. Mild paravertebral edema is noted at T11. Vertebral body height is otherwise maintained throughout the thoracic spine. Alignment is preserved. There are acute to subacute fractures involving the spinous processes of T9 and T10. These were not clearly se en on the 10/28/2020 examination. There is also an acute to subacute fracture of the right posterior 10 th rib at the costovertebral junction. This was also not seen previously. Hyperkyphosis is observed. Anterior osteophytes are seen throughout. Multilevel degenerative disc space narrowing is seen throug hout the thoracic spine. There is no CT evidence of high-grade central canal stenosis. The paraspinou s soft tissues are normal as imaged. There are small right and trace left pleural effusions with biba silar atelectasis. The heart is enlarged and pacemaker leads are noted. IMPRESSION: 1. There is a subacute superior endplate compression fracture of T11. Loss of height is modestly incr eased from 10/28/2020. 2. There are acute to subacute spinous process fractures of T9 and T10, as well as a right posterior 10th rib fracture. These were not seen on 10/28/2020. 3. No additional findings are concerning for acute or healing fracture. 4. There is a chronic compression deformity of T12 with mild loss of height and evidence of previous vertebroplasty. 5. Osteopenia and spondylotic change as above. 6. Small right and trace left pleural effusions. ACT 112: Negative or not required by law. Dictated: 11/27/2020 2:40 PM Transcribed: 11/27/2020 3:04 PM Zoraida [id number] [email or web address] Electronically signed by: Michael Scherer M.D. 11/27/2020 3:23 PM
[2020-11-27] MEDS: GABAPENTIN 300 MG CAP PO SCH (19:44)
[2020-11-27] MEDS: OXYBUTYNIN CHLORIDE XL 5 MG TABCR PO SCH (19:46)
[2020-11-27] MEDS: CALCITONIN SALMON NA 200 IU/AC 3.7 ML BTL SCH (20:31)
--- NOTE | 2020-11-27 21:55 | Hospitalist Progress Note ---
Date of Service November 27, 2020 Assessment & Plan (1) Acute UTI: Acute urinary tract infection/mixed stress and urge incontinence- Previous infections with Klebsiella aerogenes that are pansensitive except intermediate to ceftriaxone. continue levofloxacin 250 mg IV daily. Follow urine culture and sensitivities - Klebsiella, sensitive to levofloxacin now on PO tomorrow, complete 10 days of treatment Received 1 L normal saline in ED. then NSS + 20mEq at 100mL/hr fluids stopped 11/24 no fever, WBC normal, vitals stable (2) Mixed stress and urge incontinence: See above. Continue oxybutynin Likely being aggravated by fecal impaction - disimpacted ON (11/26) (3) Closed wedge compression fracture of T11 vertebra: Acute compression fracture of T9, T10. Patient continues to have pain and discomfort. Obtained CT scan which showed above diagnosis. Will place on calcitonin intranasally. This was ordered in previous admission but not continued. She continued to have discomfort, although it is slowly improving. She typically takes 2 Tylenol as needed during the day for pain relief will get PT/OT, she does not want to go to rehab no recent falls at home which is good will work on disposition, family wants her to go to rehab but she will not agree might consider [facility] facility she wants to go home to get her second COVID shot on Friday (4) Myasthenia gravis, AChR antibody positive: monitor for excessive fatigue, has not been an issue (5) Hypertension, essential: resume Lisinopril (6) Hypothyroidism: Continue levothyroxine 150 mcg daily (7) Fecal impaction in rectum: hard stool in rectal vault, able to remove fair amount today spent 20 minutes at the bedside will give Miralax and Colace, try to fully empty colon Admission and Anticipated Discharge Date Admission Date: November 22, 2020 Subjective Patient reports she continues to have pain, which is moderate in intensity. Review of Systems Review of Systems: All systems reviewed & are unremarkable except as noted in HPI & below Physical Exam Physical Exam: Constitutional: well developed, + thin and + frail appearing; no acute distress Neck: trachea midline, no thyromegaly Respiratory: normal respiratory effort, lungs clear to auscultation Cardiovascular: RRR, no murmur, no edema Gastrointestinal (Abdomen): normal bowel sounds, soft, nontender, no hepatospl enomegaly Rectal Exam: + fecal impaction Musculoskeletal: Head/Neck/Chest: normocephalic, head atraumatic and neck supple Spine: + limited thoraco-lumbar ROM (due to pain) Extremities: extremities normal to inspection and + abnormal strength (generalized weakness); no cyanosis, no clubbing and no petechiae Skin: no rashes, warm and dry Neurologic: patellar DTR's 2+ bilat, sensation intact and PERRL, EOMI, accommodation nl, no face palsy, no dysarthria Psychiatric: A+Ox3, euthymic affect Lymphatic: no cervical or axillary lymphadenopathy Results & Data Results & Data ([facility]) Vital Signs (Past 12 Hours) Vital Signs Temp Pulse Resp BP Pulse Ox 11/27/20 15:06 36.6 C 89 16 131/83 92 PG Care Time/CCT Total # of Minutes Spent Total Time Spent with Patient: Total time spent is greater than 50% in coordination of care (as documented) at patient's floor/unit and/or counseling patient: Coding Level of Care Code 22443 Subseq Hosp Care Lvl 3 Diagnoses Acute UTI N39.0 Mixed stress and urge incontinence N39.46 Closed wedge compression fracture of T11 vertebra S22.080A Myasthenia gravis, AChR antibody positive G70.00 Hypertension, essential I10 Hypothyroidism E03.9 Fecal impaction in rectum K56.41 Time Spent (min) 35
[2020-11-28] MEDS: LEVOTHYROXINE SODIUM 150 MCG TABLET PO SCH (05:29)
[2020-11-28 06:16] LABS: Hematocrit (blood only) 42.3 % (37-47); Hemoglobin 13.9 g/dL (12.0-16.0); Mean Corpuscular Hemoglobin 32.9 pg (25-34); Mean Corpuscular Hgb Conc 32.9 g/dL (32-36); Mean Platelet Volume 10.8 fL (7.4-10.4); Platelet Count 220 K/uL (130-400); RDW Coefficient of Variation 13.5 % (11.5-14.5); RDW Standard Deviation 49.7 fL (36.4-46.3); Red Blood Count 4.23 M/uL (4.2-5.4); White Blood Count 6.22 K/uL (4.8-10.8)
[2020-11-28 06:54] LABS: BUN Creatinine Ratio 13.3 (10-20); Calcium 9.4 mg/dl (8.5-10.1); Creatinine Clr Calc Pharmacy 33.9 ml/min; Potassium 3.9 mmol/L (3.5-5.1)
--- NOTE | 2020-11-28 08:32 | Orthopedic Consultation ---
Date of Consultation November 28, 2020 Assessment & Plan (1) Closed wedge compression fracture of T11 vertebra: I long discussion today with the patient regarding her updated CAT scan findings. I am concerned she is developing a nonunion of the T11 compression fracture. There are 2 more incidental findings of rib fractures as well. I discussed possible surgical intervention for T11 which would require kyphoplasty. At this point she would very much like to avoid surgical intervention. This is completely understandable. I will check in with her throughout the week if she changes her mind. At this time and recommend that she undergo weightbearing as tolerated ambulate as tolerated. She is not to lift more than 5 pounds. Present on Admission?: Yes History of Present Illness Reason for Consultation: Continued back pain Attending Physician: Chente Ruby History of Present Illness This is a very pleasant 85-year-old female that returns to the hospital for continued thoracic back pain. She denies any leg symptoms. The symptoms are quite limiting in nature. Allergies Allergy/AdvReac Type Severity Reaction Status Date / Time celecoxib Allergy Severe SX OF Verified 11/17/20 15:54 STROKE, FACIAL NUMBNESS, UNABLE TO SPEAK fesoterodine [From Toviaz] Allergy Unknown Unknown Verified 11/17/20 15:54 solifenacin [From Vesicare] Allergy Unknown Unknown Verified 11/17/20 15:54 morphine AdvReac Intermediate Confusion Verified 11/17/20 15:54 ciprofloxacin AdvReac Mild UPSET Verified 11/17/20 15:54 STOMACH metronidazole AdvReac Mild N/V Verified 11/17/20 15:54 Home Medications Medication Instructions Recorded Confirmed Type cholecalciferol (vitamin D3) 2,000 unit PO QAM 08/05/18 11/22/20 History [Vitamin D3] cyanocobalamin (vitamin B-12) 1,000 mcg PO QAM 08/05/18 11/22/20 History [Vitamin B-12] ascorbic acid (vitamin C) 500 mg 500 mg PO QAM tab 02/26/19 11/22/20 History tablet levothyroxine 150 mcg tablet 150 mcg PO QAM #90 tab 12/07/19 11/22/20 Rx atorvastatin 40 mg tablet 40 mg PO HS #90 tab 02/21/20 11/22/20 Rx pantoprazole 40 mg tablet,delayed 40 mg PO QAM #30 tab 05/15/20 11/22/20 Rx release aspirin 81 mg tablet,delayed 81 mg PO QAM 08/21/20 11/22/20 History release ferrous sulfate 325 mg (65 mg 325 mg PO QAM 08/21/20 11/22/20 History iron) tablet multivit with 1 tab PO QAM 08/21/20 11/22/20 History eylbdrcl-tkcp-GT-lutein 8 mg iron-400 mcg-300 mcg tablet gabapentin 300 mg capsule 600 mg PO HS #60 cap 09/05/20 11/22/20 Rx oxybutynin chloride 5 mg 5 mg PO HS #30 tab 09/05/20 11/22/20 Rx tablet,extended release 24 hr vitamin A 0 unit PO QAM 10/28/20 11/22/20 History vitamin E 0 unit PO QAM 10/28/20 11/22/20 History acetaminophen 1,000 mg PO TID #0 tab 11/03/20 11/22/20 Rx lidocaine 1 patch TRANSDERMAL QAM #15 ea 11/03/20 11/22/20 Rx tramadol 50 mg PO Q6H PRN #20 tab 11/03/20 11/22/20 Rx lisinopril 10 mg tablet 10 mg PO DAILY #30 tab 11/08/20 11/22/20 Rx sulfamethoxazole 800 1 tab PO BID 5 Days #10 tab 11/22/20 11/22/20 Rx mg-trimethoprim 160 mg tablet Patient History Medical History Acute back pain Anemia Cardiac defibrillator in place Cardiomyopathy Carotid artery stenosis Chronic pancreatitis CKD (chronic kidney disease) stage 3, GFR 30-59 ml/min Degenerative joint disease (DJD) of hip Diabetes mellitus, type 2 Diabetic nephropathy Diabetic peripheral neuropathy Diverticulitis Diverticulosis of colon Duodenal ulcer Fall GERD (gastroesophageal reflux disease) GERD without esophagitis HLD (hyperlipidemia) HTN (hypertension), benign Hypercholesterolemia Hypothyroid IBS (irritable bowel syndrome) ICD (implantable cardioverter-defibrillator) battery depletion Insomnia Lumbar canal stenosis Lumbar spondylosis Nocturia Nonischemic cardiomyopathy Osteoarthritis Osteoporosis Presence of cardiac pacemaker Pulmonary nodule Rib fracture 09/17/18 R/T FALL. D/C'D TO [facility]. Scaphoid fracture of wrist Urge incontinence of urine Vitamin D deficiency, unspecified Surgical History History of cardiac cath PER PT, 5-10 YEARS AGO AT [facility] - REASON? - NO STENTS/ANGIOPLASTY History of cholecystectomy History of colonoscopy History of ERCP w/ sphincterotomy & CBD stent History of esophagogastroduodenoscopy (EGD) History of vertebroplasty T12 S/P appendectomy S/P hysterectomy S/P ICD (internal cardiac defibrillator) procedure Biventricular AICD placed in 2007, Generator Change-out 02/15/2020 -- now has a [employer] ANALYST-D Bi-V AICD. S/P kyphoplasty S/P partial colectomy S/P rotator cuff surgery Family History Son Diabetes Sister Breast cancer Denies family history of Ovarian cancer Prostate cancer Hearing loss No family history of adverse response to anesthesia No family history of bleeding disorder Heart disease Allergies Myocardial infarction Colorectal cancer Cancer Hypertension Stroke Asthma Social History Smoking Status: Never smoker Second Hand Exposure: No; Hx Alcohol Use: No Hx Substance Use: No Preferred Language: Hebrew Communication Ability: Effective Visual Impairment: No Limitations Hearing Ability: Normal Scroll Saw Operator Required: No Beliefs That Will Affect Care: None marital status: Current Living Situation: Spouse current occupational status: retired current occupation: retired from career with [employer] How many Children do You have: 4 Feels Safe at Home: Yes Childhood Exposure to Second-Hand Smoke: No Dental Care, Regularly: No Physical Activity Frequency: Does not Exercise Seatbelt Use: always Sunscreen Use: No Assistive Devices: Walker Physical Exam Physical Exam: On exam she is in a chair at the bedside. She is able to lean forward she does have some pain to palpation percussion of the thoracolumbar junction. She has full strength testing lower extremities. Results & Data ([facility]) Vital Signs (Past 12 Hours) Vital Signs Temp Pulse Resp BP Pulse Ox 11/28/20 07:07 36.5 C 74 16 149/87 H 91 11/27/20 23:51 36.8 C 80 16 159/88 H 94 11/27/20 23:17 36.8 C 80 20 168/109 H 94
[2020-11-28] MEDS: HYDROCODONE/ACETAMOPHEN 5/325MG TAB PO PRN ×3 (08:40→22:51)
[2020-11-28] MEDS: ASPIRIN 81 MG ECTAB PO SCH (08:41)
[2020-11-28] MEDS: DOCUSATE SODIUM 100 MG CAP PO SCH ×2 (08:41→20:01)
[2020-11-28] MEDS: PANTOprazole 40 MG TAB PO SCH (08:42)
[2020-11-28] MEDS: POLYETHYLENE (MIRALAX) 17 GM PACK PO SCH (08:42)
[2020-11-28] MEDS: LIDOCAINE 5% 1 PATCH TD SCH (08:42)
[2020-11-28] MEDS: levoFLOXacin 250 MG TABLET PO SCH (11:19)
[2020-11-28] MEDS: OXYBUTYNIN CHLORIDE XL 5 MG TABCR PO SCH (20:01)
[2020-11-28] MEDS: GABAPENTIN 300 MG CAP PO SCH (20:01)
[2020-11-28] MEDS: CALCITONIN SALMON NA 200 IU/AC 3.7 ML BTL SCH (20:01)
--- NOTE | 2020-11-28 22:10 | Hospitalist Progress Note ---
Date of Service November 28, 2020 Assessment & Plan (1) Acute UTI: Acute urinary tract infection/mixed stress and urge incontinence- Previous infections with Klebsiella aerogenes that are pansensitive except intermediate to ceftriaxone. continue levofloxacin 250 mg IV daily. Follow urine culture and sensitivities - Klebsiella, sensitive to levofloxacin now on PO, WILL MONITOR. Previous provider recommended 10 days, however, this does not appear to be a complicated UTI. Will continue for 7 days and then will stop. fluids stopped 11/24 no fever, WBC normal, vitals stable (2) Mixed stress and urge incontinence: See above. Continue oxybutynin Likely being aggravated by fecal impaction - disimpacted ON (11/26) (3) Closed wedge compression fracture of T11 vertebra: Acute fracture of T9, T10 (SPINAL PROCESS). Patient continues to have pain and discomfort. Obtained CT scan which showed above diagnosis. Will place on calcitonin intranasally AND CONTINUE THIS AT LEAST FOR 2-4 WEEKS. This was ordered in previous admission but not continued. She continued to have discomfort, although it is slowly improving. She typically takes 2 Tylenol as needed during the day for pain relief will get PT/OT, she does not want to go to rehab no recent falls at home which is good will work on disposition, family wants her to go to rehab but she will not agree might consider [facility] facility she wants to go home to get her second COVID shot on Friday. (4) Myasthenia gravis, AChR antibody positive: monitor for excessive fatigue, has not been an issue (5) Hypertension, essential: resume Lisinopril (6) Hypothyroidism: Continue levothyroxine 150 mcg daily (7) Fecal impaction in rectum: hard stool in rectal vault, able to remove fair amount today spent 20 minutes at the bedside will give Miralax and Colace, try to fully empty colon Admission and Anticipated Discharge Date Admission Date: November 22, 2020 Subjective Patient reports that she continues to have pain in her back. Review of Systems Review of Systems: All systems reviewed & are unremarkable except as noted in HPI & below Physical Exam Physical Exam: Constitutional: well developed, + thin and + frail appearing; no acute distress Neck: trachea midline, no thyromegaly Respiratory: normal respiratory effort, lungs clear to auscultation Cardiovascular: RRR, no murmur, no edema Gastrointestinal (Abdomen): normal bowel sounds, soft, nontender, no hepatosplenomegaly Rectal Exam: + fecal impaction Musculoskeletal: Head/Neck/Chest: normocephalic, head atraumatic and neck supple Spine: + limited thoraco-lumbar ROM (due to pain) Extremities: extremities normal to inspection and + abnormal strength (generalized weakness); no cyanosis, no clubbing and no petechiae Skin: no rashes, warm and dry Neurologic: patellar DTR's 2+ bilat, sensation intact and PERRL, EOMI, accommodation nl, no face palsy, no dysarthria Psychiatric: A+Ox3, euthymic affect Lymphatic: no cervical or axillary lymphadenopathy Results & Data Results & Data ([facility]) Vital Signs (Past 12 Hours) Vital Signs Temp Pulse Resp BP Pulse Ox 11/28/20 22:09 36.4 C L 80 18 131/73 95 11/28/20 15:32 36.5 C 74 16 101/60 91 PG Care Time/CCT Total # of Minutes Spent Total Time Spent with Patient: Total time spent is greater than 50% in coordination of care (as documented) at patient's floor/unit and/or counseling patient: Coding Level of Care Code 59823 Subseq Hosp Care Lvl 3 Diagnoses Acute UTI N39.0 Mixed stress and urge incontinence N39.46 Closed wedge compression fracture of T11 vertebra S22.080A Myasthenia gravis, AChR antibody positive G70.00 Hypertension, essential I10 Hypothyroidism E03.9 Fecal impaction in rectum K56.41 Time Spent (min) 35
[2020-11-29] MEDS: HYDROCODONE/ACETAMOPHEN 5/325MG TAB PO PRN ×2 (05:50→19:53)
[2020-11-29] MEDS: LEVOTHYROXINE SODIUM 150 MCG TABLET PO SCH (05:51)
[2020-11-29] MEDS: POLYETHYLENE (MIRALAX) 17 GM PACK PO SCH (08:55)
[2020-11-29] MEDS: LIDOCAINE 5% 1 PATCH TD SCH (08:55)
[2020-11-29] MEDS: ASPIRIN 81 MG ECTAB PO SCH (08:55)
[2020-11-29] MEDS: DOCUSATE SODIUM 100 MG CAP PO SCH ×2 (08:55→19:53)
[2020-11-29] MEDS: PANTOprazole 40 MG TAB PO SCH (08:55)
[2020-11-29] MEDS: levoFLOXacin 250 MG TABLET PO SCH (10:45)
[2020-11-29] MEDS: GABAPENTIN 300 MG CAP PO SCH (19:53)
[2020-11-29] MEDS: OXYBUTYNIN CHLORIDE XL 5 MG TABCR PO SCH (19:53)
[2020-11-29] MEDS: CALCITONIN SALMON NA 200 IU/AC 3.7 ML BTL SCH (19:53)
--- NOTE | 2020-11-29 22:10 | Hospitalist Progress Note ---
Date of Service November 29, 2020 Assessment & Plan (1) Acute UTI: Acute urinary tract infection/mixed stress and urge incontinence- Previous infections with Klebsiella aerogenes that are pansensitive except intermediate to ceftriaxone. continue levofloxacin 250 mg IV daily. Follow urine culture and sensitivities - Klebsiella, sensitive to levofloxacin now on PO, WILL MONITOR. Previous provider recommended 10 days, however, this does not appear to be a complicated UTI. Will continue for 7 days and then will stop. fluids stopped 11/24 no fever, WBC normal, vitals stable Had discussion with daughter and separately. (2) Mixed stress and urge incontinence: See above. Continue oxybutynin Likely being aggravated by fecal impaction - disimpacted ON (11/26) (3) Closed wedge compression fracture of T11 vertebra: Acute fracture of T9, T10 (SPINAL PROCESS). Patient continues to have pain and discomfort. Obtained CT scan which showed above diagnosis. Will place on calcitonin intranasally AND CONTINUE THIS AT LEAST FOR 2-4 WEEKS. This was ordered in previous admission but not continued. She continued to have discomfort, although it is slowly improving. She typically takes 2 Tylenol as needed during the day for pain relief will get PT/OT, she does not want to go to rehab no recent falls at home which is good will work on disposition, family wants her to go to rehab but she will not agree might consider [facility] facility she wants to go home to get her second COVID shot on Friday. (4) Myasthenia gravis, AChR antibody positive: monitor for excessive fatigue, has not been an issue (5) Hypertension, essential: resume Lisinopril (6) Hypothyroidism: Continue levothyroxine 150 mcg daily (7) Fecal impaction in rectum: hard stool in rectal vault, able to remove fair amount today spent 20 minutes at the bedside will give Miralax and Colace, try to fully empty colon Admission and Anticipated Discharge Date Admission Date: November 22, 2020 Subjective Patient continues to have pain. She is interested in going home. Review of Systems Review of Systems: All systems reviewed & are unremarkable except as noted in HPI & below Physical Exam Physical Exam: Constitutional: well developed, + thin and + frail appearing; no acute distress Neck: trachea midline, no thyromegaly Respiratory: normal respiratory effort, lungs clear to auscultation Cardiovascular: RRR, no murmur, no edema Gastrointestinal (Abdomen): normal bowel sounds, soft, nontender, no hepatosplenomegaly Rectal Exam: + fecal impaction Musculoskeletal: Head/Neck/Chest: normocephalic, head atraumatic and neck supple Spine: + limited thoraco-lumbar ROM (due to pain) Extremities: extremities normal to inspection and + abnormal strength (generalized weakness); no cyanosis, no clubbing and no petechiae Skin: no rashes, warm and dry Neurologic: patellar DTR's 2+ bilat, sensation intact and PERRL, EOMI, accommodation nl, no face palsy, no dysarthria Psychiatric: A+Ox3, euthymic affect Lymphatic: no cervical or axillary lymphadenopathy Results & Data Results & Data ([facility]) Vital Signs (Past 12 Hours) Vital Signs Temp Pulse Resp BP Pulse Ox 11/29/20 15:19 36.5 C 86 16 127/82 93 PG Care Time/CCT Total # of Minutes Spent Total Time Spent with Patient: Total time spent is greater than 50% in coordi nation of care (as documented) at patient's floor/unit and/or counseling patient: Coding Level of Care Code 39220 Subseq Hosp Care Lvl 3 Diagnoses Acute UTI N39.0 Mixed stress and urge incontinence N39.46 Closed wedge compression fracture of T11 vertebra S22.080A Myasthenia gravis, AChR antibody positive G70.00 Hypertension, essential I10 Hypothyroidism E03.9 Fecal impaction in rectum K56.41 Time Spent (min) 35
[2020-11-30] MEDS: HYDROCODONE/ACETAMOPHEN 5/325MG TAB PO PRN ×2 (03:07→10:18)
[2020-11-30] MEDS: LEVOTHYROXINE SODIUM 150 MCG TABLET PO SCH (05:38)
[2020-11-30] MEDS: ASPIRIN 81 MG ECTAB PO SCH (08:43)
[2020-11-30] MEDS: POLYETHYLENE (MIRALAX) 17 GM PACK PO SCH (08:44)
[2020-11-30] MEDS: PANTOprazole 40 MG TAB PO SCH (08:44)
[2020-11-30] MEDS: DOCUSATE SODIUM 100 MG CAP PO SCH (08:44)
[2020-11-30] MEDS: LIDOCAINE 5% 1 PATCH TD SCH (08:45)
[2020-11-30] MEDS: levoFLOXacin 250 MG TABLET PO SCH (11:09)
--- NOTE | 2020-12-05 13:26 | Coding Query ---
To promote full compliance with coding requirements relating to patient care, physician participation is requested in all cases of medical billing coder uncertainty. Please assist us with the question(s) below: Coding Question(s): It was noted throughout the record that the patient has/is suspected to have osteoporosis. According to coding guidelines "a code for osteoporotic fracture, and not a traumatic fracture, should be used for any patient with known osteoporosis who suffers a fracture, even if the patient had a minor fall or trauma, if that fall or trauma would not usually break a normal, healthy bone." Please indicate below the type of fractures: Physician's Response(s): 1. Regarding the Acute Fracture of T9, T 10 (Spinal Process): ( ) Osteoporotic fracture ( ) Traumatic fracture ( ) Other, please specify xUnable to be determined 2. Regarding the Closed Wedge Compression Fracture of T 11 Vertebra: ( x ) Osteoporotic fracture ( ) Traumatic fracture ( ) Other, please specify ( ) Unable to be determined MTDD
--- NOTE | 2020-12-06 11:48 | Discharge Summary ---
Date of Service November 30, 2020 Admission HPI Per Admitting Provider The patient is an 85-year-old female with a past medical history including mixed stress and urge incontinence, T11 compression fracture, myasthenia gravis AChR antibody positive, essential hypertension, hypothyroidism, diabetes mellitus, vitamin D deficiency, insomnia, irritable bowel syndrome, hypercholesterolemia, GERD, diabetic peripheral neuropathy, carotid artery stenosis, nonischemic cardiomyopathy, hypothyroidism, and status post ICD. She presents with symptoms as noted above. Her most recent hospitalization at [facility] was from 10/28- 11/03/2020. Previous urinary tract infections on 09/01/2020 and 11/20/2020 were positive for Klebsiella aerogenes pansensitive except intermediated for ceftriaxone. She continues to report pain over her T11 and T12 vertebral fractures. Principal Diagnosis acute UTI Discharge Exam Constitutional: well developed, + thin and + frail appearing; no acute distress Neck: trachea midline, no thyromegaly Respiratory: normal respiratory effort, lungs clear to auscultation Cardiovascular: RRR, no murmur, no edema Gastrointestinal (Abdomen): normal bowel sounds, soft, nontender, no hepatosplenomegaly Musculoskeletal: Head/Neck/Chest: normocephalic, head atraumatic and neck supple Spine: + limited thoraco-lumbar ROM (due to pain) Extremities: extremities normal to inspection and + abnormal strength (generalized weakness); no cyanosis, no clubbing and no petechiae Skin: no rashes, warm and dry Neurologic: patellar DTR's 2+ bilat, sensation intact and PERRL, EOMI, accommodation nl, no face palsy, no dysarthria Psychiatric: A+Ox3, euthymic affect Lymphatic: no cervical or axillary lymphadenopathy Discharge Data Allergies Allergy/AdvReac Type Severity Reaction Status Date / Time celecoxib Allergy Severe SX OF Verified 12/04/20 13:46 STROKE, FACIAL NUMBNESS, UNABLE TO SPEAK fesoterodine [From Toviaz] Allergy Unknown Unknown Verified 12/04/20 13:46 solifenacin [From Vesicare] Allergy Unknown Unknown Verified 12/04/20 13:46 morphine AdvReac Intermediate Confusion Verified 12/04/20 13:46 ciprofloxacin AdvReac Mild UPSET Verified 12/04/20 13:46 STOMACH metronidazole AdvReac Mild N/V Verified 12/04/20 13:46 Consultations 11/22/20 22:56 ED Decision to Admit Stat 11/23/20 01:25 Consult Case Management - Discharge Planning Routine 11/27/20 13:25 Consult Orthopedic Surgery Routine Ordered Studies 11/22/20 20:27 CT abd pelvis wo con Urgent 11/27/20 13:39 CT thoracic spine wo con Routine Hospital Course (1) Acute UTI: Acute urinary tract infection/mixed stress and urge incontinence- Previous infections with Klebsiella aerogenes that are pansensitive except intermediate to ceftriaxone. continue levofloxacin 250 mg IV daily. Follow urine culture and sensitivities - Klebsiella, sensitive to levofloxacin now on PO, WILL MONITOR. Previous provider recommended 10 days, however, this does not appear to be a complicated UTI. Received 7 days of abx.and will stop fluids stopped 11/24 no fever, WBC normal, vitals stable Had discussion with daughter and separately. (2) Mixed stress and urge incontinence: See above. Continue oxybutynin Likely being aggravated by fecal impaction - disimpacted ON (11/26) (3) Closed wedge compression fracture of T11 vertebra: Acute fracture of T9, T10 (SPINAL PROCESS). Patient continues to have pain and discomfort. Obtained CT scan which showed above diagnosis. Will place on calcitonin intranasally AND CONTINUE THIS AT LEAST FOR 2-4 WEEKS. This was ordered in previous admission but not continued. She continued to have discomfort, although it is slowly improving. She typically takes 2 Tylenol as needed during the day for pain relief will get PT/OT, she does not want to go to rehab no recent falls at home which is good Family and patient agreed on discharge home with home health she wants to go home to get her second COVID shot on Friday. (4) Myasthenia gravis, AChR antibody positive: monitor for excessive fatigue, has not been an issue (5) Hypertension, essential: resume Lisinopril (6) Hypothyroidism: Continue levothyroxine 150 mcg daily (7) Fecal impaction in rectum: hard stool in rectal vault, removed during hospital stay. n Total Time Total Time Spent Total Time Spent (In Minutes): 32 Total Time Includes: Examination of the Patient, Discharge Planning and Medication Reconciliation Discharge Plan Discharge Items Patient Disposition: Home - Home Health Services Reason For Visit: UTI Discharge Diagnosis: UTI Activity: Resume your previous activity Non-emergency contact: Primary Care Provider Call non-emergency contact if: you have any medication questions Follow-up/Referrals: Rome Castellanos MD [Primary Care Provider] - 12/04/20 2:00 pm Nithin Moore DO [Surgeon] - 12/12/20 8:30 am Diet: Heart Healthy Diet Texture: Easy to Chew Addtl Attending Provider Instructions: will recommend followup with Dr. Moore as an outpatient. Followup with PCP in 1-2 weeks Pending Studies at Discharge: No Stand-Alone Forms: My [facility], Smoking Cessation Medications and DC Order Prescriptions: New docusate sodium 100 mg Capsule 100 mg PO BID Qty: 60 RF: 0 polyethylene glycol 3350 [Miralax] 17 gram Powder In Packet 17 g PO DAILY Qty: 30 RF: 0 calcitonin (salmon) 200 unit/actuation [place],Non-Aerosol 1 spray NA QPM Qty: 3.7 RF: 0 Continued levothyroxine 150 mcg tablet 150 mcg PO QAM Qty: 90 RF: 3 atorvastatin 40 mg tablet 40 mg PO HS Qty: 90 RF: 3 pantoprazole 40 mg tablet,delayed release (DR/EC) 40 mg PO QAM Qty: 30 RF: 11 gabapentin 300 mg capsule 600 mg PO HS Qty: 60 RF: 5 oxybutynin chloride 5 mg tablet extended release 24hr 5 mg PO HS Qty: 30 RF: 11 lisinopril 10 mg tablet 10 mg PO DAILY Qty: 30 RF: 6 ascorbic acid (vitamin C) 500 mg tablet 500 mg PO QAM RF: 0 ferrous sulfate [FeroSul] 325 mg (65 mg iron) tablet 325 mg PO QAM RF: 0 Centrum Silver Women 8 mg iron-400 mcg-300 mcg tablet 1 tab PO QAM RF: 0 aspirin [Adult Low Dose Aspirin] 81 mg tablet,delayed release (DR/EC) 81 mg PO QAM RF: 0 cyanocobalamin (vitamin B-12) [Vitamin B-12] 1,000 mcg Tablet 1,000 mcg PO QAM RF: 0 cholecalciferol (vitamin D3) [Vitamin D3] 2,000 unit Tablet 2,000 unit PO QAM RF: 0 vitamin A 8,000 unit Capsule 0 unit PO QAM RF: 0 vitamin E 100 unit Capsule 0 unit PO QAM RF: 0 acetaminophen 500 mg Tablet 1,000 mg PO TID Qty: 0 RF: 0 lidocaine 5 % Adhesive Patch,Medicated 1 patch transdermal QAM Qty: 15 RF: 0 tramadol 50 mg tablet 50 mg PO Q6H PRN (Reason: pain) Qty: 20 RF: 0 Discontinued sulfamethoxazole-trimethoprim [Bactrim DS] 800-160 mg tablet 1 tab PO BID 5 Days Qty: 10 RF: 0 No Action hydrocodone-acetaminophen 5-325 mg tablet 1 tab PO Q6H PRN (Reason: severe pain 7-10) Qty: 20 RF: 0 Discharge Orders: Discharge Order (Routine); Ordered 11/30/20 Ordered By: Chente Xiao/Other Patient Handouts: Urinary Tract Infections in Women Admission Data Admit Date/Time: 11/22/20 23:35 Attending Provider: Chente Ruby Admit Provider: Asa Hughes Primary Care Provider: Rome Castellanos Other Providers: Nithin Moore Other Interventions: Discharge Summary Assessment (RN) Last Done: 11/30/20 11:42 Coding Level of Care Code D/C Day Management >30 mins Diagnoses Acute UTI N39.0 Mixed stress and urge incontinence N39.46 Closed wedge compression fracture of T11 vertebra S22.080A Myasthenia gravis, AChR antibody positive G70.00 Hypertension, essential I10 Hypothyroidism E03.9 Fecal impaction in rectum K56.41 Time Spent (min) 35
== END 2020-11-30 13:48 | disposition home health service (06) | DRG 690 ==
LOC: ED 19:50 → SUATTDRO 23:35 → 3N 23:35

== ENCOUNTER 2021-01-15 12:12 | Observation (INO) ==
[2021-01-15] MEDS ORDERED: SODIUM CHLORIDE 0.9% 500 ML IV STA (12:37)
[2021-01-15] MEDS ORDERED: ONDANSETRON INJ 2 MG/ML 2 ML VIAL IV STA (12:37)
[2021-01-15] MEDS ORDERED: fentaNYL citrate 100 MCG/2 ML VIAL IV STA (12:41)
--- NOTE | 2021-01-15 13:05 | Emergency Department Note ---
Impression & Plan Colitis, Weakness ED Provider Note Provider: Kaushik Tabor MD DATE OF SERVICE: 01/15/2021 CHIEF COMPLAINT: Weakness, diarrhea, nausea, vomiting HISTORY OF PRESENT ILLNESS: Patient is a 85-year-old female with a past medical history including distantly C. difficile, hypothyroidism, diabetes, hypertension, diverticulosis, hypothyroidism, CKD presenting today reporting that over the past 3 to 4 days she developed significant nonbloody diarrhea but does states that stools have been somewhat black. Patient is on a baby aspirin but no other blood thinners. States she is having some diffuse abdominal discomfort and had some nausea and vomiting. Decreased intake today. Denies any recent sick contacts. States she has some urinary frequency and this is been ongoing and was recently admitted in November of this year for UTI. No fevers have been reported. Patient denies any significant falls at this time or fainting from the diarrhea. Daughter is present and concerned about the patie nt's worsening weakness and possible dehydration given the significant bout of diarrhea she has been having. Patient does states she feels generalized weakness. REVIEW OF SYSTEMS: A total of 10 review of systems was obtained and negative except as stated above in the HPI. PAST MEDICAL HISTORY: As noted above MEDICATIONS: Reviewed home medication list SOCIAL HISTORY: Lives at home with PHYSICAL EXAM: GENERAL: alert and oriented in no acute distress on stretcher Head: normocephalic and atraumatic EYES: No injection, discharge or icterus. NECK: Trachea midline. ENT: Mucous membranes pink and moist. LUNGS: Airway patent. No retractions. Breath sounds clear with good air entry bilaterally. HEART: Regular rate and rhythm. No chest wall tenderness ABDOMEN: Soft mild diffuse abdominal tenderness without peritonitis or rigidity. Hemoccult positive stool from provided stool sample noted. SKIN: Acyanotic, warm, dry, without rashes EXTREMITIES: Without significant tenderness or deformities trace bilateral pedal edema. NEUROLOGICAL: No focal deficits. No aphasia. No facial droop or slurred speech. Ambulatory with assistance EK bpm normal sinus rhythm. No PVC or PAC. No acute ST segment elevation or depression noted. There is one paced beat noted on the cardiogram. QTc 434. CONTINUOUS CARDIAC MONITORING: was ordered and showed a heart rate of 70s to 80s bpm in sinus rhythm with a rare paced beat Patient's laboratory studies and imaging reviewed. Differential includes Infection, dehydration, metabolic abnormality, hypo/hyperglycemia, electrolyte disturbance, anemia, hypoxia, cardiac sources, intracerebral event, toxicologic, neurologic, as well as other pathologies. IMPRESSION/MEDICAL DECISION MAKING: Patient presents complaining of significant diarrhea Hemoccult positive here with diffuse abdominal tenderness. Patient not significantly hypotensive and not on significant anticoagulation beyond baby aspirin. Lower suspicion for acute upper GI bleed but concerns for possible diverticular bleeding or diverticulitis. Concern for possible C. difficile given history of recent UTI and Levaquin usage. Blood work here showed no significant leukocytosis or anemia. No severe electrolyte abnormality or signs of renal dysfunction is noted today. CT scans noticed mild diffuse colitis but no perforation or significant diverticulitis noted. Covid testing was negative. Again believe likely experiencing some black Hemoccult stools from the colitis and diverticular irritation but this is not significantly affected her hemoglobin at this point. Patient's nausea is improved after some Zofran here and a bit of hydration. Do of some concerns as she still significantly weak and requiring assistance about her ability to care for self while at home and her fall risk. Stool sample still pending to determine if this is possible C. difficile for stool culture. Discussed with patient and daughter and given her weakness although her nausea is improved and she started to have a bit of an appetite believe further observation at this time would be reasonable. Again stool collection to exclude C. difficile is still pending. Patient does not appear septic likely at this point and will defer empiric antibiotics. Could possibly be also be virally mediated. Hospitalist was alerted for further evaluation DIAGNOSIS: Colitis, weakness DISPOSITION: Hospitalist will evaluate Patient was agreeable with this plan. Past Med/Surg History Medical History (Updated 01/15/21 @ 20:06 by Kaushik Tabor M.D.) Acute back pain Acute UTI Anemia Cardiac defibrillator in place Cardiomyopathy Carotid artery stenosis Chronic pancreatitis CKD (chronic kidney disease) stage 3, GFR 30-59 ml/min Degenerative joint disease (DJD) of hip Diabetes mellitus, type 2 Diabetic nephropathy Diabetic peripheral neuropathy Diverticulitis Diverticulosis of colon Duodenal ulcer Fall GERD (gastroesophageal reflux disease) GERD without esophagitis HLD (hyperlipidemia) HTN (hypertension), benign Hypercholesterolemia Hypothyroid IBS (irritable bowel syndrome) ICD (implantable cardioverter-defibrillator) battery depletion Insomnia Lumbar canal stenosis Lumbar spondylosis Nocturia Nonischemic cardiomyopathy Osteoarthritis Osteoporosis Presence of cardiac pacemaker Pulmonary nodule Rib fracture 09/17/18 R/T FALL. D/C'D TO [facility]. Scaphoid fracture of wrist Urge incontinence of urine Vitamin D deficiency, unspecified Surgical History History of cardiac cath PER PT, 5-10 YEARS AGO AT [facility] - REASON? - NO STENTS/ANGIOPLASTY History of cholecystectomy History of colonoscopy History of ERCP w/ sphincterotomy & CBD stent History of esophagogastroduodenoscopy (EGD) History of vertebroplasty T12 S/P appendectomy S/P hysterectomy S/P ICD (internal cardiac defibrillator) procedure Biventricular AICD placed in 2007, Generator Change-out 02/15/2020 -- now has a [employer] WORKER-D Bi-V AICD. S/P kyphoplasty S/P partial colectomy S/P rotator cuff surgery Family History Son Diabetes Sister Breast cancer Denies family history of Ovarian cancer Prostate cancer Hearing loss No family history of adverse response to anesthesia No family history of bleeding disorder Heart disease Allergies Myocardial infarction Colorectal cancer Cancer Hypertension Stroke Asthma Social History Smoking Status: Never smoker Second Hand Exposure: No; Hx Alcohol Use: No Hx Substance Use: No Preferred Language: Amharic Communication Ability: Effective Visual Impairment: No Limitations Hearing Ability: Normal [employer] Worker Required: No Beliefs That Will Affect Care: None marital status: Current Living Situation: Spouse current occupational status: retired current occupation: retired from career with [employer] How many Children do You have: 4 Feels Safe at Home: Yes Childhood Exposure to Second-Hand Smoke: No Dental Care, Regularly: No Physical Activity Frequency: Does not Exercise Seatbelt Use: always Sunscreen Use: No Assistive Devices: Walker Allergies Allergies Allergy/AdvReac Type Severity Reaction Status Date / Time celecoxib Allergy Severe SX OF Verified 01/15/21 13:12 STROKE, FACIAL NUMBNESS, UNABLE TO SPEAK fesoterodine [From Toviaz] Allergy Unknown Unknown Verified 01/15/21 13:12 solifenacin [From Vesicare] Allergy Unknown Unknown Verified 01/15/21 13:12 morphine AdvReac Intermediate Confusion Verified 01/15/21 13:12 ciprofloxacin AdvReac Mild UPSET Verified 01/15/21 13:12 STOMACH metronidazole AdvReac Mild N/V Verified 01/15/21 13:12 Home Meds Home Medications Medication Instructions Recorded Confirmed cholecalciferol (vitamin D3) 2,000 unit PO QAM 08/05/18 01/15/21 [Vitamin D3] cyanocobalamin (vitamin B-12) 1,000 mcg PO QAM 08/05/18 01/15/21 [Vitamin B-12] ascorbic acid (vitamin C) 500 mg 500 mg PO QAM tab 02/26/19 01/15/21 tablet aspirin 81 mg tablet,delayed 81 mg PO QAM 08/21/20 01/15/21 release ferrous sulfate 325 mg (65 mg 325 mg PO QAM 08/21/20 01/15/21 iron) tablet multivit with 1 tab PO QAM 08/21/20 01/15/21 esbfyhbe-euvk-CP-lutein 8 mg iron-400 mcg-300 mcg tablet vitamin A 0 unit PO QAM 10/28/20 01/15/21 vitamin E 0 unit PO QAM 10/28/20 01/15/21 acetaminophen 1,000 mg PO TID PRN 01/15/21 01/15/21 Previous Rx's Medication Instructions Recorded levothyroxine 150 mcg tablet 150 mcg PO QAM #90 tab 12/07/19 atorvastatin 40 mg tablet 40 mg PO HS #90 tab 02/21/20 pantoprazole 40 mg tablet,delayed 40 mg PO QAM #30 tab 05/15/20 release gabapentin 300 mg capsule 600 mg PO HS #60 cap 09/05/20 oxybutynin chloride 5 mg 5 mg PO HS #30 tab 09/05/20 tablet,extended release 24 hr lidocaine 1 patch TRANSDERMAL QAM #15 ea 11/03/20 tramadol 50 mg PO Q6H PRN #20 tab 11/03/20 lisinopril 10 mg tablet 10 mg PO DAILY #30 tab 11/08/20 calcitonin (salmon) 1 spray NA QPM #3.7 ml 11/30/20 docusate sodium 100 mg PO BID #60 cap 11/30/20 polyethylene glycol 3350 [Miralax] 17 g PO DAILY #30 ea 11/30/20 Results & Data (ED) Vital Signs Vital Signs - 24 hr 01/15/21 12:16 01/15/21 13:00 01/15/21 13:06 Temperature 36.6 C Temperature Source Temporal Artery Scan Pulse Rate 92 H 83 Pulse Rate from SpO2 Sensor 79 79 Pulse Rhythm Respiratory Rate 16 17 Blood Pressure 152/97 H 147/88 H Blood Pressure Mean 115 107 Pulse Oximetry 95 96 96 Oxygen Delivery Method Room Air Sepsis Recent Fever Within 48 Hours No Sepsis New/Unexplained Change in Mental Status N/A Sepsis Action Taken by Nursing No Action Required 01/15/21 13:10 01/15/21 13:15 01/15/21 13:20 Temperature Temperature Source Pulse Rate 75 77 77 Pulse Rate from SpO2 Sensor 75 76 77 Pulse Rhythm Respiratory Rate 15 16 21 Blood Pressure 147/97 H Blood Pressure Mean 113 Pulse Oximetry 95 96 91 Oxygen Delivery Method Sepsis Recent Fever Within 48 Hours Sepsis New/Unexplained Change in Mental Status Sepsis Action Taken by Nursing 01/15/21 13:28 01/15/21 13:30 01/15/21 13:40 Temperature Temperature Source Pulse Rate 81 82 Pulse Rate from SpO2 Sensor 81 81 Pulse Rhythm Regular Respiratory Rate 22 20 Blood Pressure 173/102 H Blood Pressure Mean 125 Pulse Oximetry 96 96 Oxygen Delivery Method Room Air Sepsis Recent Fever Within 48 Hours Sepsis New/Unexplained Change in Mental Status Sepsis Action Taken by Nursing 01/15/21 13:45 01/15/21 13:50 01/15/21 14:00 Temperature Temperature Source Pulse Rate 82 81 82 Pulse Rate from SpO2 Sensor 82 82 Pulse Rhythm Respiratory Rate 22 27 H 22 Blood Pressure 162/89 H 162/86 H Blood Pressure Mean 113 111 Pulse Oximetry 96 92 Oxygen Delivery Method Sepsis Recent Fever Within 48 Hours Sepsis New/Unexplained Change in Mental Status Sepsis Action Taken by Nursing 01/15/21 14:10 01/15/21 14:45 01/15/21 14:48 Temperature Temperature Source Pulse Rate 84 83 80 Pulse Rate from SpO2 Sensor 84 Pulse Rhythm Respiratory Rate 24 18 23 Blood Pressure 166/114 H 167/95 H Blood Pressure Mean 131 119 Pulse Oximetry 92 Oxygen Delivery Method Sepsis Recent Fever Within 48 Hours Sepsis New/Unexplained Change in Mental Status Sepsis Action Taken by Nursing 01/15/21 14:50 01/15/21 15:00 01/15/21 15:10 Temperature Temperature Source Pulse Rate 79 78 80 Pulse Rate from SpO2 Sensor 79 81 80 Pulse Rhythm Respiratory Rate 19 17 25 H Blood Pressure 152/84 H Blood Pressure Mean 106 Pulse Oximetry 95 97 94 Oxygen Delivery Method Sepsis Recent Fever Within 48 Hours Sepsis New/Unexplained Change in Mental Status Sepsis Action Taken by Nursing 01/15/21 15:15 01/15/21 15:20 01/15/21 15:30 Temperature Temperature Source Pulse Rate 80 80 78 Pulse Rate from SpO2 Sensor 79 80 78 Pulse Rhythm Respiratory Rate 23 20 19 Blood Pressure 162/84 H 155/88 H Blood Pressure Mean 110 110 Pulse Oximetry 93 94 94 Oxygen Delivery Method Sepsis Recent Fever Within 48 Hours Sepsis New/Unexplained Change in Mental Status Sepsis Action Taken by Nursing 01/15/21 15:40 01/15/21 15:45 01/15/21 15:50 Temperature Temperature Source Pulse Rate 78 78 79 Pulse Rate from SpO2 Sensor 78 78 79 Pulse Rhythm Respiratory Rate 15 19 30 H Blood Pressure 148/80 H Blood Pressure Mean 102 Pulse Oximetry 96 92 92 Oxygen Delivery Method Sepsis Recent Fever Within 48 Hours Sepsis New/Unexplained Change in Mental Status Sepsis Action Taken by Nursing 01/15/21 16:00 01/15/21 16:10 01/15/21 16:15 Temperature Temperature Source Pulse Rate 76 78 81 Pulse Rate from SpO2 Sensor 77 79 81 Pulse Rhythm Respiratory Rate 19 19 18 Blood Pressure 147/80 H 142/91 H Blood Pressure Mean 102 108 Pulse Oximetry 94 93 93 Oxygen Delivery Method Sepsis Recent Fever Within 48 Hours Sepsis New/Unexplained Change in Mental Status Sepsis Action Taken by Nursing 01/15/21 16:29 01/15/21 16:30 01/15/21 16:31 Temperature Temperature Source Pulse Rate 89 82 83 Pulse Rate from SpO2 Sensor Pulse Rhythm Respiratory Rate 24 22 26 H Blood Pressure 195/101 H Blood Pressure Mean 132 Pulse Oximetry Oxygen Delivery Method Sepsis Recent Fever Within 48 Hours Sepsis New/Unexplained Change in Mental Status Sepsis Action Taken by Nursing 01/15/21 16:40 01/15/21 16:45 01/15/21 16:50 Temperature Temperature Source Pulse Rate 71 75 75 Pulse Rate from SpO2 Sensor Pulse Rhythm Respiratory Rate 14 23 18 Blood Pressure 177/113 H Blood Pressure Mean 134 Pulse Oximetry Oxygen Delivery Method Sepsis Recent Fever Within 48 Hours Sepsis New/Unexplained Change in Mental Status Sepsis Action Taken by Nursing 01/15/21 17:00 01/15/21 17:10 01/15/21 17:15 Temperature Temperature Source Pulse Rate 74 71 74 Pulse Rate from SpO2 Sensor Pulse Rhythm Respiratory Rate 21 22 22 Blood Pressure 167/88 H 164/96 H Blood Pressure Mean 114 118 Pulse Oximetry Oxygen Delivery Method Sepsis Recent Fever Within 48 Hours Sepsis New/Unexplained Change in Mental Status Sepsis Action Taken by Nursing 01/15/21 17:20 01/15/21 17:30 01/15/21 17:40 Temperature Temperature Source Pulse Rate 76 76 78 Pulse Rate from SpO2 Sensor Pulse Rhythm Respiratory Rate 17 14 21 Blood Pressure 168/92 H Blood Pressure Mean 117 Pulse Oximetry Oxygen Delivery Method Sepsis Recent Fever Within 48 Hours Sepsis New/Unexplained Change in Mental Status Sepsis Action Taken by Nursing 01/15/21 17:45 01/15/21 17:50 Temperature Temperature Source Pulse Rate 76 75 Pulse Rate from SpO2 Sensor Pulse Rhythm Respiratory Rate 23 16 Blood Pressure 170/95 H Blood Pressure Mean 120 Pulse Oximetry Oxygen Delivery Method Sepsis Recent Fever Within 48 Hours Sepsis New/Unexplained Change in Mental Status Sepsis Action Taken by Nursing Laboratory Data Result diagrams: 01/15/21 13:14 01/15/21 13:14 Lab Results 01/15/21 01/15/21 01/15/21 Range/Units 13:14 13:14 13:14 WBC 7.88 (4.8-10.8) K/uL RBC 4.52 (4.2-5.4) M/uL Hgb 14.9 (12.0-16.0) g/dL Hct 45.0 (37-47) % MCV 99.6 (80-100) fL MCH 33.0 (25-34) pg MCHC 33.1 (32-36) g/dL RDW Std Deviation 48.8 H (36.4-46.3) fL RDW Coeff of Radha 13.5 (11.5-14.5) % Plt Count 188 (130-400) K/uL MPV 10.7 H (7.4-10.4) fL Immature Gran % (Auto) 0.1 % Neut % (Auto) 69.0 % Lymph % (Auto) 22.0 % Andrews % (Auto) 8.2 % Eos % (Auto) 0.6 % Baso % (Auto) 0.1 % Neut # (Auto) 5.43 (1.4-6.5) K/uL Lymph # (Auto) 1.73 (1.2-3.4) K/uL Andrews # (Auto) 0.65 H (0.11-0.59) K/uL Eos # (Auto) 0.05 (0-0.5) K/uL Baso # (Auto) 0.01 (0-0.2) K/uL Immature Gran # (Auto) 0.01 (0.00-0.02) K/uL PT 10.6 (9.0-12.0) Seconds INR 1.0 (0.9-1.1) Sodium 143 (136-145) mmol/L Potassium 3.8 (3.5-5.1) mmol/L Chloride 108 H (98-107) mmol/L Carbon Dioxide 28 (21-32) mmol/L Anion Gap 6.0 (3-11) BUN 17 (7-18) mg/dl Creatinine 1.04 (0.6-1.2) mg/dl Est Cr Clr Drug Dosing 31.5 ml/min Est GFR ( Amer) 55.9 Est GFR (Non-Af Amer) 48.3 BUN/Creatinine Ratio 16.6 (10-20) Glucose 108 H (70-99) mg/dl Lactate (0.4-2.0) mmol/L Calcium 9.8 (8.5-10.1) mg/dl Magnesium 2.3 (1.8-2.4) mg/dl Total Bilirubin 0.9 (0.2-1) mg/dl AST 17 (15-37) U/L ALT 17 (12-78) U/L Alkaline Phosphatase 82 (45-117) U/L Troponin I < 0.015 (0-0.045) ng/ml Total Protein 7.2 (6.4-8.2) gm/dl Albumin 3.5 (3.4-5.0) gm/dl Globulin 3.7 (2.5-4.0) gm/dl Albumin/Globulin Ratio 1.0 (0.9-2) Lipase 101 (73-393) U/L Urine Color Urine Appearance (Clear) Urine pH (4.5-7.5) Ur Specific [place] (1.000-1.030) Urine Protein (Negative) Urine Glucose (UA) (Negative) Urine Ketones (Negative) Urine Blood (Negative) Urine Nitrite (Negative) Urine Bilirubin (Negative) Urine Urobilinogen (Negative) Ur Leukocyte Esterase (Negative) COVID-19 Eval Order SARS-CoV-2 (PCR) (Negative) Influenza Type A (PCR) (Neg) Influenza Type B (PCR) (Neg) RSV (RT-PCR) (Neg) 01/15/21 01/15/21 01/15/21 Range/Units 13:28 13:28 14:10 WBC (4.8-10.8) K/uL RBC (4.2-5.4) M/uL Hgb (12.0-16.0) g/dL Hct (37-47) % MCV (80-100) fL MCH (25-34) pg MCHC (32-36) g/dL RDW Std Deviation (36.4-46.3) fL RDW Coeff of Radha (11.5-14.5) % Plt Count (130-400) K/uL MPV (7.4-10.4) fL Immature Gran % (Auto) % Neut % (Auto) % Lymph % (Auto) % Andrews % (Auto) % Eos % (Auto) % Baso % (Auto) % Neut # (Auto) (1.4-6.5) K/uL Lymph # (Auto) (1.2-3.4) K/uL Andrews # (Auto) (0.11-0.59) K/uL Eos # (Auto) (0-0.5) K/uL Baso # (Auto) (0-0.2) K/uL Immature Gran # (Auto) (0.00-0.02) K/uL PT (9.0-12.0) Seconds INR (0.9-1.1) Sodium (136-145) mmol/L Potassium (3.5-5.1) mmol/L Chloride (98-107) mmol/L Carbon Dioxide (21-32) mmol/L Anion Gap (3-11) BUN (7-18) mg/dl Creatinine (0.6-1.2) mg/dl Est Cr Clr Drug Dosing ml/min Est GFR ( Amer) Est GFR (Non-Af Amer) BUN/Creatinine Ratio (10-20) Glucose (70-99) mg/dl Lactate 0.9 (0.4-2.0) mmol/L Calcium (8.5-10.1) mg/dl Magnesium (1.8-2.4) mg/dl Total Bilirubin (0.2-1) mg/dl AST (15-37) U/L ALT (12-78) U/L Alkaline Phosphatase (45-117) U/L Troponin I (0-0.045) ng/ml Total Protein (6.4-8.2) gm/dl Albumin (3.4-5.0) gm/dl Globulin (2.5-4.0) gm/dl Albumin/Globulin Ratio (0.9-2) Lipase (73-393) U/L Urine Color Urine Appearance (Clear) Urine pH (4.5-7.5) Ur Specific [place] (1.000-1.030) Urine Protein (Negative) Urine Glucose (UA) (Negative) Urine Ketones (Negative) Urine Blood (Negative) Urine Nitrite (Negative) Urine Bilirubin (Negative) Urine Urobilinogen (Negative) Ur Leukocyte Esterase (Negative) COVID-19 Eval Order [facility]FluRsv at [facility] SARS-CoV-2 (PCR) NEGATIVE (Negative) Influenza Type A (PCR) Negative (Neg) Influenza Type B (PCR) Negative (Neg) RSV (RT-PCR) Negative (Neg) 01/15/21 Range/Units 14:46 WBC (4.8-10.8) K/uL RBC (4.2-5.4) M/uL Hgb (12.0-16.0) g/dL Hct (37-47) % MCV (80-100) fL MCH (25-34) pg MCHC (32-36) g/dL RDW Std Deviation (36.4-46.3) fL RDW Coeff of Radha (11.5-14.5) % Plt Count (130-400) K/uL MPV (7.4-10.4) fL Immature Gran % (Auto) % Neut % (Auto) % Lymph % (Auto) % Andrews % (Auto) % Eos % (Auto) % Baso % (Auto) % Neut # (Auto) (1.4-6.5) K/uL Lymph # (Auto) (1.2-3.4) K/uL Andrews # (Auto) (0.11-0.59) K/uL Eos # (Auto) (0-0.5) K/uL Baso # (Auto) (0-0.2) K/uL Immature Gran # (Auto) (0.00-0.02) K/uL PT (9.0-12.0) Seconds INR (0.9-1.1) Sodium (136-145) mmol/L Potassium (3.5-5.1) mmol/L Chloride (98-107) mmol/L Carbon Dioxide (21-32) mmol/L Anion Gap (3-11) BUN (7-18) mg/dl Creatinine (0.6-1.2) mg/dl Est Cr Clr Drug Dosing ml/min Est GFR ( Amer) Est GFR (Non-Af Amer) BUN/Creatinine Ratio (10-20) Glucose (70-99) mg/dl Lactate (0.4-2.0) mmol/L Calcium (8.5-10.1) mg/dl Magnesium (1.8-2.4) mg/dl Total Bilirubin (0.2-1) mg/dl AST (15-37) U/L ALT (12-78) U/L Alkaline Phosphatase (45-117) U/L Troponin I (0-0.045) ng/ml Total Protein (6.4-8.2) gm/dl Albumin (3.4-5.0) gm/dl Globulin (2.5-4.0) gm/dl Albumin/Globulin Ratio (0.9-2) Lipase (73-393) U/L Urine Color Yellow Urine Appearance Clear (Clear) Urine pH 6.0 (4.5-7.5) Ur Specific [place] 1.036 H (1.000-1.030) Urine Protein Negative (Negative) Urine Glucose (UA) Negative (Negative) Urine Ketones 1+ H (Negative) Urine Blood Negative (Negative) Urine Nitrite Negative (Negative) Urine Bilirubin Negative (Negative) Urine Urobilinogen Negative (Negative) Ur Leukocyte Esterase Negative (Negative) COVID-19 Eval Order SARS-CoV-2 (PCR) (Negative) Influenza Type A (PCR) (Neg) Influenza Type B (PCR) (Neg) RSV (RT-PCR) (Neg) Administered Medications Discontinued Medications Fentanyl Citrate (Fentanyl Citrate 100 Mcg/2 Ml Vial) 25 mcg IV NOW STA Stop: 01/15/21 12:42 Last Admin: 01/15/21 13:12 Dose: 25 mcg Documented by: [id number] Sodium Chloride (Nss) 500 mls @ 999 mls/hr IV .Q31M STA Stop: 01/15/21 13:07 Last Infusion: 01/15/21 14:07 Dose: 999 mls/hr Documented by: [id number] Admin: 01/15/21 13:12 Dose: 999 mls/hr Documented by: [id number] Pantoprazole Sodium 40 mg/ (Syringe) 10 mls @ 5 mls/min IV NOW STA Stop: 01/15/21 17:40 Last Admin: 01/15/21 17:51 Dose: 5 mls/min Documented by: [id number] Ioversol (Optiray 300 100ml) 100 ml IV ONCE ONE Stop: 01/15/21 14:21 Last Admin: 01/15/21 14:20 Dose: 100 ml Documented by: [id number] Ondansetron HCl (Ondansetron Inj 2 Mg/Ml 2 Ml Vial) 4 mg IV NOW STA Stop: 01/15/21 12:38 Last Admin: 01/15/21 13:12 Dose: 4 mg Documented by: [id number] Imaging Data Radiologist's Impression: Abdomen/Pelvis CT 01/15/21 12:[address] WITH IV CONTRAST CT DOSE: 450.35 mGy.cm HISTORY: diarrhea, generalized abdominal pain, nausea TECHNIQUE: Multiaxial CT images of the abdomen and pelvis were performed following the use of intravenous contrast. A dose lowering technique was utilized adhering to the principles of ALARA. COMPARISON STUDY: Abdomen and pelvis CT 11/22/2020. FINDINGS: Stable 8 mm lingular nodule. Progressive groundglass densities at the left lung base. This favors dependent change. A low-grade pneumonitis cannot be excluded. No pneumoperitoneum. No pneumatosis. There is a left total hip arthroplasty. Pacemaker wires are noted. T12 vertebroplasty. There are healing T9 and T10 spinous process fractures. Moderate anterior wedge-shaped compression fracture at T11 demonstrating up to 50% loss of height anteriorly. This has pr ogressed in the interval and suggest an acute on chronic compression fracture. Mild paravertebral edema at this location. Stable pneumobilia. No hepatic or splenic masses. The gallbladder surgically absent. The adrenal glands are unremarkable. Scattered pancreatic calcifications suggestive chronic p ancreatitis. This remains unchanged. A 9 mm hypodense lesion within pancreatic tail best seen on image 114. This is stable compared to the 2019 examination. No hydronephrosis. There are stable bilateral renal hypodense lesions. These favor cysts. Moderate calcified plaque within the ectatic abdominal aorta. No evidence for an abdominal aortic aneurysm. No retroperitoneal lymphadenopathy. The bladder is not well visualized due to metallic artifact from left hip prosthesis. There is mild bladder wall thickening which could be due to underdistention. The uterus appears surgically absent. Colonic diverticulosis. No evidence for acute diverticulitis. Mild thickening and pericolonic fat stranding involving the cecum, ascending colon, and majority of the transverse colon. This is consistent with a nonspecific colitis. This favors an inflammatory or infectious process. Moderate well-formed stool seen within the rectum. IMPRESSION: 1. Mild bowel wall thickening involving the cecum, ascending colon, and majority of the transverse colon. This is consistent with a nonspecific colitis and favors an inflammatory or infectious process. 2. No evidence for bowel obstruction. 3. An acute on chronic compression fracture at T11 demonstrating up to 50% loss of height anteriorly. No associated retropulsion. This has progressed in the interval. 4. Moderate well-formed stool seen within the rectum. 5. Colonic diverticulosis. No evidence for acute diverticulitis. 6. Additional chronic findings as described above. ACT 112: Negative or not required by law. Electronically signed by: Kranthi Mena M.D. 01/15/2021 2:48 PM Chest X-Ray 01/15/21 14:35 XR chest 1V portable CLINICAL HISTORY: weakness COMPARISON STUDY: Chest radiograph October 26, 2020. Chest CT October 28, 2020. FINDINGS: A left subclavian by ventricular pacer/AICD is in place. There is mild cardiomegaly without evidence for pulmonary edema. There is no pneumothorax or pleural effusion. No consolidation is noted. Severe osteoarthritis of the glenohumeral joint is incidentally noted. IMPRESSION: No acute findings. ACT 112: Negative or not required by law. Electronically signed by: Kendall Kirby M.D. 01/15/2021 3:03 PM Discharge Plan Visit Data Chief Complaint: Diarrhea Stated Complaint: DIARRHEA,NOT EATING,STOMACH HURTS ED Provider: Kaushik Tabor Discharge Problem: Colitis, Weakness Patient Disposition: Admitted As Inpatient Discharge Instructions Interventions: ED Discharge Assessment Last Done: 01/15/21 19:39
[2021-01-15 13:28] LABS: Basophils # (auto) 0.01 K/uL (0-0.2); Basophils % (auto) 0.1 %; Eosinophils # (auto) 0.05 K/uL (0-0.5); Eosinophils % (auto) 0.6 %; Hemoglobin 14.9 g/dL (12.0-16.0); Immature Granulocytes # (auto) 0.01 K/uL (0.00-0.02); Immature Granulocytes % (auto) 0.1 %; Lymphocytes # (auto) 1.73 K/uL (1.2-3.4); Mean Corpuscular Hgb Conc 33.1 g/dL (32-36); Mean Corpuscular Volume 99.6 fL (80-100); Mean Platelet Volume 10.7 fL (7.4-10.4); Monocytes # (auto) 0.65 K/uL (0.11-0.59); Monocytes % (auto) 8.2 %; Neutrophils # (auto) 5.43 K/uL (1.4-6.5); Platelet Count 188 K/uL (130-400); RDW Coefficient of Variation 13.5 % (11.5-14.5); RDW Standard Deviation 48.8 fL (36.4-46.3); Red Blood Count 4.52 M/uL (4.2-5.4); White Blood Count 7.88 K/uL (4.8-10.8)
[2021-01-15 13:43] LABS: Prothrombin Time 10.6 Seconds (9.0-12.0)
[2021-01-15 13:47] LABS: Alanine Aminotransferase 17 U/L (12-78); Albumin Level 3.5 gm/dl (3.4-5.0); Alkaline Phosphatase 82 U/L (45-117); Aspartate Aminotransferase 17 U/L (15-37); BUN Creatinine Ratio 16.6 (10-20); Bilirubin,Total 0.9 mg/dl (0.2-1); Blood Urea Nitrogen 17 mg/dl (7-18); Calcium 9.8 mg/dl (8.5-10.1); Carbon Dioxide 28 mmol/L (21-32); Chloride 108 mmol/L (98-107); Creatinine Clr Calc Pharmacy 31.5 ml/min; Est GFR (African American) 55.9; Est GFR (Non-African American) 48.3; Globulin 3.7 gm/dl (2.5-4.0); Glucose 108 mg/dl (70-99); Lipase 101 U/L (73-393); Magnesium 2.3 mg/dl (1.8-2.4); Potassium 3.8 mmol/L (3.5-5.1); Sodium 143 mmol/L (136-145); Total Protein 7.2 gm/dl (6.4-8.2)
[2021-01-15 13:49] LABS: Troponin I < 0.015 ng/ml (0-0.045)
[2021-01-15] MEDS ORDERED: OPTIRAY 300 100mL IV ONE (14:20)
[2021-01-15 14:31] LABS: Influenza A virus by PCR Negative (Neg); Influenza B virus by PCR Negative (Neg); RSV by PCR Negative (Neg); SARS CoV2 RNA(COVID-19) InHosp NEGATIVE (Negative)
--- NOTE | 2021-01-15 14:49 | CT Scan Report ---
ABDOMEN AND PELVIS CT WITH IV CONTRAST CT DOSE: 450.35 mGy.cm HISTORY: diarrhea, generalized abdominal pain, nausea TECHNIQUE: Multiaxial CT images of the abdomen and pelvis were performed following the use of intrave nous contrast. A dose lowering technique was utilized adhering to the principles of ALARA. COMPARISON STUDY: Abdomen and pelvis CT 11/22/2020. FINDINGS: Stable 8 mm lingular nodule. Progressive groundglass densities at the left lung base. This favors dependent change. A low-grade pneumonitis cannot be excluded. No pneumoperitoneum. No pneumato sis. There is a left total hip arthroplasty. Pacemaker wires are noted. T12 vertebroplasty. There are healing T9 and T10 spinous process fractures. Moderate anterior wedge-shaped compression fracture at T11 demonstrating up to 50% loss of height anteriorly. This has progressed in the interval and sugge st an acute on chronic compression fracture. Mild paravertebral edema at this location. Stable pneumo bilia. No hepatic or splenic masses. The gallbladder surgically absent. The adrenal glands are unrema rkable. Scattered pancreatic calcifications suggestive chronic pancreatitis. This remains unchanged. A 9 mm hypodense lesion within pancreatic tail best seen on image 114. This is stable compared to the 2019 examination. No hydronephrosis. There are stable bilateral renal hypodense lesions. These favor cysts. Moderate calcified plaque within the ectatic abdominal aorta. No evidence for an abdominal ao rtic aneurysm. No retroperitoneal lymphadenopathy. The bladder is not well visualized due to metallic artifact from left hip prosthesis. There is mild bladder wall thickening which could be due to under distention. The uterus appears surgically absent. Colonic diverticulosis. No evidence for acute diver ticulitis. Mild thickening and pericolonic fat stranding involving the cecum, ascending colon, and ma jority of the transverse colon. This is consistent with a nonspecific colitis. This favors an inflamm atory or infectious process. Moderate well-formed stool seen within the rectum. IMPRESSION: 1. Mild bowel wall thickening involving the cecum, ascending colon, and majority of the transverse co kenya. This is consistent with a nonspecific colitis and favors an inflammatory or infectious process. 2. No evidence for bowel obstruction. 3. An acute on chronic compression fracture at T11 demonstrating up to 50% loss of height anteriorly. No associated retropulsion. This has progressed in the interval. 4. Moderate well-formed stool seen within the rectum. 5. Colonic diverticulosis. No evidence for acute diverticulitis. 6. Additional chronic findings as described above. ACT 112: Negative or not required by law. Electronically signed by: Kranthi Mena M.D. 01/15/2021 2:48 PM
[2021-01-15 14:58] LABS: Appearance Urine Clear (Clear); Bilirubin Urine Negative (Negative); Blood Urine Negative (Negative); Color Urine Yellow; Glucose Urine UA Negative (Negative); Ketones Urine 1+ (Negative); Leukocyte Esterase Urine Negative (Negative); Nitrite Urine Negative (Negative); Protein Urine Negative (Negative); Specific Gravity Urine 1.036 (1.000-1.030); Urobilinogen Urine Negative (Negative)
--- NOTE | 2021-01-15 15:05 | XRay Report ---
XR chest 1V portable CLINICAL HISTORY: weakness COMPARISON STUDY: Chest radiograph October 26, 2020. Chest CT October 28, 2020. FINDINGS: A left subclavian by ventricular pacer/AICD is in place. There is mild cardiomegaly without evidence for pulmonary edema. There is no pneumothorax or pleural effusion. No consolidation is note d. Severe osteoarthritis of the glenohumeral joint is incidentally noted. IMPRESSION: No acute findings. ACT 112: Negative or not required by law. Electronically signed by: Kendall Kirby M.D. 01/15/2021 3:03 PM
--- NOTE | 2021-01-15 17:08 | History & Physical Report ---
Date of Service January 15, 2021 Assessment & Plan (1) Colitis: Nonspecific colitis of cecum, ascending and most of transverse colon. WBC WNL. Lactic acid 0.9. COVID-19 negative. C. difficile and stool culture pending. Lactose intolerant diet (2) Fecal occult blood test positive: Suspect related to colitis rather than black stool given patient is not anemic. Will give her usual pantoprazole IV initially then continue PO daily Repeat CBC in AM (3) Weakness: PT/OT evals (4) Mixed stress and urge incontinence: Continue oxybutynin ER 5mg PO daily (5) Hypothyroidism: TSH 0.484 in August Continue levothyroxine 150 mcg PO daily (6) Myasthenia gravis, AChR antibody positive: No specific symptoms of this. On no current medication (7) HTN (hypertension), benign: Continue lisinopril 10mg PO daily (8) DVT prophylaxis: Low risk, not indicated. Encourage patient mobility Admission and Anticipated Discharge Date Admission Date: January 15, 2021 History of Present Illness Chief Complaint: Diarrhea illness Primary Care Provider: Adriano Castellanos MD Katty Reynolds is an 85-year-old female who presents to the ER with diarrhea, nausea, abdominal pain, one episode of vomiting. Possible black stool (although this may be chronic with iron tablets). Associated URI symptoms with nasal congestion and sore throat. She reports symptoms ongoing for the last 4 days. Cannot think of anything unusual that she ate. She reports after her bowels improved with during her last admission with laxatives but she has not required this since discharge. No urinary symptoms. She does not have to take the tramadol regularly and is doing well with regards to her back pain. Using acetaminophen 1g HS. The patient has recently been in and out of hospital starting with a fall in October causing a T11 vertebral fracture. After starting on tramadol she complained of abdominal pressure having difficulty urinating. Diagnosed with UTI with urine culture growing Klebsiella aerogenes. This was treated with Levaquin as an inpatient from November 22-2020. During this hospitalization she was noted to have fecal impaction. She was discharged on docusate twice daily recommended prunes/prune juice daily and MiraLAX as needed. On-call note from December 08 mentions diarrhea a.m. and at night. In the ER CT abdomen/pelvis with IV contrast was concerning for nonspecific c olitis affecting cecum, ascending and transverse colon. Labs were generally unremarkable however she feels she is unable to return safely home at this time especially on the back of her recent fall. Allergies Allergy/AdvReac Type Severity Reaction Status Date / Time celecoxib Allergy Severe SX OF Verified 01/15/21 13:12 STROKE, FACIAL NUMBNESS, UNABLE TO SPEAK fesoterodine [From Toviaz] Allergy Unknown Unknown Verified 01/15/21 13:12 solifenacin [From Vesicare] Allergy Unknown Unknown Verified 01/15/21 13:12 morphine AdvReac Intermediate Confusion Verified 01/15/21 13:12 ciprofloxacin AdvReac Mild UPSET Verified 01/15/21 13:12 STOMACH metronidazole AdvReac Mild N/V Verified 01/15/21 13:12 Home Medications Medication Instructions Recorded Confirmed Type cholecalciferol (vitamin D3) 2,000 unit PO QAM 08/05/18 01/15/21 History [Vitamin D3] cyanocobalamin (vitamin B-12) 1,000 mcg PO QAM 08/05/18 01/15/21 History [Vitamin B-12] ascorbic acid (vitamin C) 500 mg 500 mg PO QAM tab 02/26/19 01/15/21 History tablet levothyroxine 150 mcg tablet 150 mcg PO QAM #90 tab 12/07/19 01/15/21 Rx atorvastatin 40 mg tablet 40 mg PO HS #90 tab 02/21/20 01/15/21 Rx pantoprazole 40 mg tablet,delayed 40 mg PO QAM #30 tab 05/15/20 01/15/21 Rx release aspirin 81 mg tablet,delayed 81 mg PO QAM 08/21/20 01/15/21 History release ferrous sulfate 325 mg (65 mg 325 mg PO QAM 08/21/20 01/15/21 History iron) tablet multivit with 1 tab PO QAM 08/21/20 01/15/21 History iheucnhi-ljkd-XG-lutein 8 mg iron-400 mcg-300 mcg tablet gabapentin 300 mg capsule 600 mg PO HS #60 cap 09/05/20 01/15/21 Rx oxybutynin chloride 5 mg 5 mg PO HS #30 tab 09/05/20 01/15/21 Rx tablet,extended release 24 hr vitamin A 0 unit PO QAM 10/28/20 01/15/21 History vitamin E 0 unit PO QAM 10/28/20 01/15/21 History lidocaine 1 patch TRANSDERMAL QAM #15 ea 11/03/20 01/15/21 Rx tramadol 50 mg PO Q6H PRN #20 tab 11/03/20 01/15/21 Rx lisinopril 10 mg tablet 10 mg PO DAILY #30 tab 11/08/20 01/15/21 Rx calcitonin (salmon) 1 spray NA QPM #3.7 ml 11/30/20 01/15/21 Rx docusate sodium 100 mg PO BID #60 cap 11/30/20 01/15/21 Rx polyethylene glycol 3350 [Miralax] 17 g PO DAILY #30 ea 11/30/20 01/15/21 Rx acetaminophen 1,000 mg PO TID PRN 01/15/21 01/15/21 History Past Med/Surg History Medical History Acute back pain Acute UTI Anemia Cardiac defibrillator in place Cardiomyopathy Carotid artery stenosis Chronic pancreatitis CKD (chronic kidney disease) stage 3, GFR 30-59 ml/min Degenerative joint disease (DJD) of hip Diabetes mellitus, type 2 Diabetic nephropathy Diabetic peripheral neuropathy Diverticulitis Diverticulosis of colon Duodenal ulcer Fall GERD (gastroesophageal reflux disease) GERD without esophagitis HLD (hyperlipidemia) HTN (hypertension), benign Hypercholesterolemia Hypothyroid IBS (irritable bowel syndrome) ICD (implantable cardioverter-defibrillator) battery depletion Insomnia Lumbar canal stenosis Lumbar spondylosis Nocturia Nonischemic cardiomyopathy Osteoarthritis Osteoporosis Presence of cardiac pacemaker Pulmonary nodule Rib fracture 09/17/18 R/T FALL. D/C'D TO [facility]. Scaphoid fracture of wrist Urge incontinence of urine Vitamin D deficiency, unspecified Surgical History History of cardiac cath PER PT, 5-10 YEARS AGO AT [facility] - REASON? - NO STENTS/ANGIOPLASTY History of cholecystectomy History of colonoscopy History of ERCP w/ sphincterotomy & CBD stent History of esophagogastroduodenoscopy (EGD) History of vertebroplasty T12 S/P appendectomy S/P hysterectomy S/P ICD (internal cardiac defibrillator) procedure Biventricular AICD placed in 2007, Generator Change-out 02/15/2020 -- now has a ipsy [employer]-D Bi-V AICD. S/P kyphoplasty S/P partial colectomy S/P rotator cuff surgery Family History Son Diabetes Sister Breast cancer Denies family history of Ovarian cancer Prostate cancer Hearing loss No family history of adverse response to anesthesia No family history of bleeding disorder Heart disease Allergies Myocardial infarction Colorectal cancer Cancer Hypertension Stroke Asthma Social History Smoking Status: Never smoker Second Hand Exposure: No; Do You Dip or Chew Tobacco: No; Hx Alcohol Use: No Hx Substance Use: No Preferred Language: Pashto Communication Ability: Effective Visual Impairment: No Limitations Hearing Ability: Normal Aba Therapist Required: No Beliefs That Will Affect Care: None marital status: Current Living Situation: Parent current occupational status: retired current occupation: retired from career with [employer] How many Children do You have: 4 Other Information That Helps Us Care for You: No Feels Safe at Home: Yes Safety Concerns: Feels Safe At This Time Childhood Exposure to Second-Hand Smoke: No Dental Care, Regularly: No Physical Activity Frequency: Does not Exercise Seatbelt Use: always Sunscreen Use: No Assistive Devices: Cane, Denture - Upper and Denture - Lower Review of Systems Review of Systems: All systems reviewed & are unremarkable except as noted in HPI & below Physical Exam Constitutional: WD/WN, vitals as above + frail appearing; no acute distress Eyes: PERRL, conjunctivae normal, anicteric sclerae ENMT: external ear and nose normal, oropharynx normal Neck: trachea midline, no thyromegaly Respiratory: normal respiratory effort, lungs clear to auscultation Cardiovascular: RRR, no murmur, no edema Gastrointestinal (Abdomen): Inspection/Auscultation: normal bowel sounds Percussion/Palpation: + abdomen tender (mild generalized) and abdomen soft; no guarding and abdomen not rigid Musculoskeletal: no cyanosis or clubbing, extremities motor strength 5/5 Skin: no rashes, warm and dry Neurologic: moves all extremities and awake; not confused Psychiatric: A+Ox3, euthymic affect Results & Data Results & Data ([facility]) Vital Signs (Past 12 Hours) Vital Signs Temp Pulse Resp BP Pulse Ox 01/15/21 16:45 75 23 177/113 H 01/15/21 16:40 71 14 01/15/21 16:31 83 26 H 195/101 H 01/15/21 16:30 82 22 01/15/21 16:29 89 24 01/15/21 16:15 81 18 142/91 H 93 01/15/21 16:10 78 19 93 01/15/21 16:00 76 19 147/80 H 94 01/15/21 15:50 79 30 H 92 01/15/21 15:45 78 19 148/80 H 92 01/15/21 15:40 78 15 96 01/15/21 15:30 78 19 155/88 H 94 01/15/21 15:20 80 20 94 01/15/21 15:15 80 23 162/84 H 93 01/15/21 15:10 80 25 H 94 01/15/21 15:00 78 17 152/84 H 97 01/15/21 14:50 79 19 95 01/15/21 14:48 80 23 167/95 H 01/15/21 14:45 83 18 166/114 H 01/15/21 14:10 84 24 92 01/15/21 14:00 82 22 162/86 H 92 01/15/21 13:50 81 27 H 01/15/21 13:45 82 22 162/89 H 96 01/15/21 13:40 82 20 96 01/15/21 13:30 81 22 173/102 H 96 01/15/21 13:20 77 21 91 01/15/21 13:15 77 16 147/97 H 96 01/15/21 13:10 75 15 95 01/15/21 13:06 96 01/15/21 13:00 83 17 147/88 H 96 01/15/21 12:16 36.6 C 92 H 16 152/97 H 95 Diagnostic Findings XR chest 1V portable IMPRESSION: No acute findings. ABDOMEN AND PELVIS CT WITH IV CONTRAST IMPRESSION: 1. Mild bowel wall thickening involving the cecum, ascending colon, and majority of the transverse colon. This is consistent with a nonspecific colitis and favors an inflammatory or infectious process. 2. No evidence for bowel obstruction. 3. An acute on chronic compression fracture at T11 demonstrating up to 50% loss of height anteriorly. No associated retropulsion. This has progressed in the interval. 4. Moderate well-formed stool seen within the rectum. 5. Colonic diverticulosis. No evidence for acute diverticulitis. 6. Additional chronic findings as described above. Medications Administered ER medications given: NSS 500 mL bolus Ondansetron 4 mg IV Fentanyl 25 mcg IV ECG Indication: chest pain Rate (beats per minute): 76 Rhythm: normal sinus Findings: no acute ischemic change Comparison ECG Date: from (November 22, 2020) Change: no significant change Code Status & VTE Plan Code Status DNR/DNI VTE Prophylaxis Plan VTE Prophylaxis will be ordered: No Reason for no VTE drug order: Treatment not indicated Reason for no VTE mechanical prophylaxis: Treatment not indicated PG Care Time/CCT Total # of Minutes Spent Total Time Spent with Patient: Total time spent is greater than 50% in coordination of care (as documented) at patient's floor/unit and/or counseling patient: Coding Level of Care Code 43564 OBS Care - Level 2 Diagnoses Colitis K52.9 Fecal occult blood test positive R19.5 Weakness R53.1 Mixed stress and urge incontinence N39.46 Hypothyroidism E03.9 Myasthenia gravis, AChR antibody positive G70.00 HTN (hypertension), benign I10 DVT prophylaxis Z29.9
[2021-01-15] MEDS ORDERED: PANTOprazole 40 MG in SYRINGE 0 ML IV STA (17:39)
[2021-01-15] MEDS ORDERED: traMADol HCL 50 MG TABLET PO PRN (19:56)
[2021-01-15] MEDS ORDERED: LACTATED RINGER'S 1,000 ML IV SCH (19:56)
[2021-01-15] MEDS: ATORVASTATIN 40 MG TAB PO SCH (21:27)
[2021-01-15] MEDS: ACETAMINOPHEN 500 MG TAB PO SCH (21:27)
[2021-01-15] MEDS: GABAPENTIN 300 MG CAP PO SCH (21:27)
[2021-01-15] MEDS: OXYBUTYNIN CHLORIDE XL 5 MG TABCR PO SCH (21:27)
[2021-01-16] MEDS: LEVOTHYROXINE SODIUM 150 MCG TABLET PO SCH (05:31)
[2021-01-16] MEDS: ACETAMINOPHEN 500 MG TAB PO SCH ×3 (05:31→21:12)
[2021-01-16 07:57] LABS: Hematocrit (blood only) 40.1 % (37-47); Hemoglobin 13.7 g/dL (12.0-16.0); Mean Corpuscular Hemoglobin 34.2 pg (25-34); Mean Corpuscular Hgb Conc 34.2 g/dL (32-36); Mean Platelet Volume 10.5 fL (7.4-10.4); Platelet Count 174 K/uL (130-400); RDW Coefficient of Variation 13.6 % (11.5-14.5); RDW Standard Deviation 49.8 fL (36.4-46.3); Red Blood Count 4.01 M/uL (4.2-5.4); White Blood Count 6.28 K/uL (4.8-10.8)
[2021-01-16] MEDS: ASPIRIN 81 MG ECTAB PO SCH (08:18)
[2021-01-16] MEDS: FERROUS SULFATE 325 MG TAB PO SCH (08:18)
[2021-01-16] MEDS: PANTOprazole 40 MG TAB PO SCH (08:18)
[2021-01-16] MEDS: CHOLECALCIFEROL 1,000 UNITS 25 MCG TAB PO SCH (08:19)
[2021-01-16] MEDS: CYANOCOBALAMIN 500 MCG TABLET (VITAMIN B-12) PO SCH (08:19)
[2021-01-16] MEDS: CEROVITE ADV FORMULA TAB PO SCH (08:19)
[2021-01-16] MEDS: lisinopril 10 MG TAB PO SCH (08:19)
[2021-01-16 08:30] LABS: Albumin Level 2.9 gm/dl (3.4-5.0); BUN Creatinine Ratio 18.7 (10-20); Bilirubin,Total 1.1 mg/dl (0.2-1); Calcium 9.2 mg/dl (8.5-10.1); Creatinine Clr Calc Pharmacy 38.1 ml/min; Est GFR (African American) 70.4; Est GFR (Non-African American) 60.7; Globulin 2.9 gm/dl (2.5-4.0); Potassium 3.2 mmol/L (3.5-5.1); Total Protein 5.8 gm/dl (6.4-8.2)
[2021-01-16] MEDS: POTASSIUM CHLORIDE 10 MEQ TABCR PO SCH ×2 (09:43→21:12)
--- NOTE | 2021-01-16 12:21 | Electrocardiogram Report ---
Test Reason : Blood Pressure : / mmHG Vent. Rate : 076 BPM Atrial Rate : 076 BPM P-R Int : 144 ms QRS Dur : 092 ms QT Int : 386 ms P-R-T Axes : 070 -20 049 degrees QTc Int : 434 ms Normal sinus rhythm Poor R wave progression, consider anterior DC vs. lead placement vs. LVH Abnormal ECG When compared with ECG of 22-NOV-2020 20:51, No significant change was found Confirmed by Morro Luke ([id number]) on 01/16/2021 12:21:13 PM Referred By: REFERRED SELF Confirmed By:Morro Luke
--- NOTE | 2021-01-16 16:19 | Hospitalist Progress Note ---
Date of Service January 16, 2021 Assessment & Plan (1) Colitis: Nonspecific colitis of cecum, ascending and most of transverse colon. WBC WNL. Lactic acid 0.9. COVID-19 negative. C. difficile not done yet because no BM today makes C diff less likely without ongoing diarrhea tolerating diet, stop IV fluids, no need for antibiotics at this time one month ago had colitis from impacted stool, no evidence of such at this time keep tonight, change to full admission likely for d/c home tomorrow if she continues to improve (2) Fecal occult blood test positive: Suspect related to colitis rather than black stool given patient is not anemic. Will give her usual pantoprazole IV initially then continue PO daily Repeat CBC today Hb is stable (3) Weakness: PT/OT evals recent history of numerous falls at home, compression fractures at multiple levels right 10th rib fracture (4) Mixed stress and urge incontinence: Continue oxybutynin ER 5mg PO daily (5) Hypothyroidism: TSH 0.484 in August Continue levothyroxine 150 mcg PO daily (6) Myasthenia gravis, AChR antibody positive: No specific symptoms of this. On no current medication (7) HTN (hypertension), benign: Continue lisinopril 10mg PO daily (8) DVT prophylaxis: Low risk, not indicated. Encourage patient mobility Admission and Anticipated Discharge Date Admission Date: January 15, 2021 Subjective patient feeling better in terms of GI, no diarrhea today, no nausea she said she had diarrhea for three days prior to admission c/o left hip, side pain, her most pressing concern reviewed previous CT scan, several compression fractures seen, right 10th rib fracture seen no evidence of fracture of left pelvis/hip etc. her labs: WBC normal, Hb stable, K is 3.2, placed on BID replacement she would like to try to go home tomorrow Review of Systems Review of Systems: All systems reviewed & are unremarkable except as noted in Subjective Physical Exam Constitutional: well developed, well nourished and + frail appearing; no acute distress Neck: trachea midline, no thyromegaly Respiratory: normal respiratory effort, lungs clear to auscultation Cardiovascular: RRR, no murmur, no edema Gastrointestinal (Abdomen): normal bowel sounds, soft, nontender, no hepatosplenomegaly Musculoskeletal: Head/Neck/Chest: normocephalic, head atraumatic and neck supple Spine: + limited thoraco-lumbar ROM, + thoracic spinal tenderness and + lumbar spinal tenderness Extremities: + abnormal strength (some weakness, needs help standing up) Skin: no rashes, warm and dry Neurologic: patellar DTR's 2+ bilat, sensation intact and PERRL, EOMI, accommodation nl, no face palsy, no dysarthria Psychiatric: A+Ox3, euthymic affect Lymphatic: no cervical or axillary lymphadenopathy Results & Data Results & Data ([facility]) Vital Signs (Past 12 Hours) Vital Signs Temp Pulse Resp BP Pulse Ox 01/16/21 15:50 36.5 C 84 16 138/75 95 01/16/21 07:35 36.8 C 66 16 130/71 92 Laboratory Results Laboratory Results - last 24 hr 01/16/21 01/16/21 07:29 07:29 WBC 6.28 RBC 4.01 L Hgb 13.7 Hct 40.1 MCV 100.0 MCH 34.2 H MCHC 34.2 RDW Std Deviation 49.8 H RDW Coeff of Radha 13.6 Plt Count 174 MPV 10.5 H Sodium 144 Potassium 3.2 L D Chloride 110 H Carbon Dioxide 29 Anion Gap 5.0 BUN 16 Creatinine 0.86 Est Cr Clr Drug Dosing 38.1 Est GFR ( Amer) 70.4 Est GFR (Non-Af Amer) 60.7 BUN/Creatinine Ratio 18.7 Glucose 81 Calcium 9.2 Total Bilirubin 1.1 H AST 14 L ALT 13 Alkaline Phosphatase 71 Total Protein 5.8 L Albumin 2.9 L Globulin 2.9 Albumin/Globulin Ratio 1.0 Medications Administered Current Inpatient Medications Acetaminophen (Acetaminophen 500 Mg Tab) 1,000 mg PO Q8 KIM Stop: 02/14/21 21:59 Last Admin: 01/16/21 13:59 Dose: 1,000 mg Documented by: Aspirin (Aspirin 81 Mg Ectab) 81 mg PO QAM KIM Stop: 02/15/21 08:59 Last Admin: 01/16/21 08:18 Dose: 81 mg Documented by: Atorvastatin Calcium (Atorvastatin 40 Mg Tab) 40 mg PO HS [facility] Stop: 02/14/21 20:59 Last Admin: 01/15/21 21:27 Dose: 40 mg Documented by: Cyanocobalamin (Cyanocobalamin 500 Mcg Tablet (Vitamin B-12)) 1,000 mcg PO QAM [facility] Stop: 02/15/21 08:59 Last Admin: 01/16/21 08:19 Dose: 1,000 mcg Documented by: Ferrous Sulfate (Ferrous Sulfate 325 Mg Tab) 325 mg PO QAM [facility] Stop: 02/15/21 08:59 Last Admin: 01/16/21 08:18 Dose: 325 mg Documented by: Gabapentin (Gabapentin 300 Mg Cap) 600 mg PO [facility] Stop: 02/14/21 20:59 Last Admin: 01/15/21 21:27 Dose: 600 mg Documented by: Levothyroxine Sodium (Levothyroxine Sodium 150 Mcg Tablet) 150 mcg PO DAILYBB KIM Stop: 02/15/21 06:29 Last Admin: 01/16/21 05:31 Dose: 150 mcg Documented by: Lisinopril (Lisinopril 10 Mg Tab) 10 mg PO DAILY KIM Stop: 02/15/21 08:59 Last Admin: 01/16/21 08:19 Dose: 10 mg Documented by: Multivitamins/Minerals (Cerovite Adv Formula Tab) [facility] Stop: 02/15/21 08:59 Last Admin: 01/16/21 08:19 Dose: 1 tab Documented by: Oxybutynin Chloride (Oxybutynin Chloride Xl 5 Mg Tabcr) 5 mg PO [facility] Stop: 02/14/21 20:59 Last Admin: 01/15/21 21:27 Dose: 5 mg Documented by: Pantoprazole Sodium (Pantoprazole 40 Mg Tab) [facility] Stop: 02/15/21 08:59 Last Admin: 01/16/21 08:18 Dose: 40 mg Documented by: Potassium Chloride (Potassium Chloride 10 Meq Tabcr) 10 meq PO BID [facility] Stop: 02/15/21 08:59 Last Admin: 01/16/21 09:43 Dose: 10 meq Documented by: Tramadol HCl (Tramadol Hcl 50 Mg Tablet) 25 mg PO Q6H PRN PRN Reason: pain Stop: 02/14/21 19:55 Vitamin D (Cholecalciferol 1,000 Units 25 Mcg Tab) 2,[facility] Stop: 02/15/21 08:59 Last Admin: 01/16/21 08:19 Dose: 2,000 units Documented by: PG Care Time/CCT Total # of Minutes Spent Total Time Spent with Patient: Total time spent is greater than 50% in coordination of care (as documented) at patient's floor/unit and/or counseling patient: Coding Level of Care Code 67773 Subseq Hosp Care Lvl 2 Diagnoses Colitis K52.9 Fecal occult blood test positive R19.5 Weakness R53.1 Mixed stress and urge incontinence N39.46 Hypothyroidism E03.9 Myasthenia gravis, AChR antibody positive G70.00 HTN (hypertension), benign I10 DVT prophylaxis Z29.9
[2021-01-16] MEDS: ATORVASTATIN 40 MG TAB PO SCH (21:12)
[2021-01-16] MEDS: GABAPENTIN 300 MG CAP PO SCH (21:12)
[2021-01-16] MEDS: OXYBUTYNIN CHLORIDE XL 5 MG TABCR PO SCH (21:12)
[2021-01-17] MEDS: LEVOTHYROXINE SODIUM 150 MCG TABLET PO SCH (05:51)
[2021-01-17] MEDS: ACETAMINOPHEN 500 MG TAB PO SCH ×3 (05:51→21:11)
[2021-01-17] MEDS: PANTOprazole 40 MG TAB PO SCH (08:15)
[2021-01-17] MEDS: CYANOCOBALAMIN 500 MCG TABLET (VITAMIN B-12) PO SCH (08:15)
[2021-01-17] MEDS: CHOLECALCIFEROL 1,000 UNITS 25 MCG TAB PO SCH (08:16)
[2021-01-17] MEDS: POTASSIUM CHLORIDE 10 MEQ TABCR PO SCH ×2 (08:16→21:10)
[2021-01-17] MEDS: ASPIRIN 81 MG ECTAB PO SCH (08:16)
[2021-01-17] MEDS: FERROUS SULFATE 325 MG TAB PO SCH (08:16)
[2021-01-17] MEDS: lisinopril 10 MG TAB PO SCH (08:16)
[2021-01-17] MEDS: CEROVITE ADV FORMULA TAB PO SCH (08:17)
--- NOTE | 2021-01-17 15:20 | XRay Report ---
XR ribs RT min 2V w CXR1V CLINICAL HISTORY: Right-sided rib pain COMPARISON STUDY: Chest x-ray dated 01/15/2021 FINDINGS: Direct chest reveals a left subclavian pacer/defibrillator. No pneumothorax is visualized. Advanced arthritic changes are present within the shoulders. The bones are osteopenic. There is an ag e-indeterminate right sixth rib fracture. IMPRESSION: Osteopenia. Age-indeterminate right sixth rib fracture. No evidence of pneumothorax. ACT 112: Negative or not required by law. Electronically signed by: Uday Verdin M.D. 01/17/2021 3:18 PM
[2021-01-17] MEDS: ATORVASTATIN 40 MG TAB PO SCH (21:10)
[2021-01-17] MEDS: OXYBUTYNIN CHLORIDE XL 5 MG TABCR PO SCH (21:10)
[2021-01-17] MEDS: GABAPENTIN 300 MG CAP PO SCH (21:11)
--- NOTE | 2021-01-17 22:33 | Hospitalist Progress Note ---
Date of Service January 17, 2021 Assessment & Plan (1) Rib fracture: right 6th rib fracture, age indeterminate pain control with Ultram PT/OT (2) Colitis: Nonspecific colitis of cecum, ascending and most of transverse colon. WBC WNL. Lactic acid 0.9. COVID-19 negative. solid BM today tolerating diet, stopped IV fluids, no need for antibiotics at this time one month ago had colitis from impacted stool, no evidence of such at this time plan to d/c home tomorrow (3) Fecal occult blood test positive: Suspect related to colitis rather than black stool given patient is not anemic. Will give her usual pantoprazole IV initially then continue PO daily Repeat CBC -- Hb stable no signs of active GI bleed (4) Weakness: PT/OT evals recent history of numerous falls at home, compression fractures at multiple levels right 10th rib fracture, right 6th rib fracture can return home with home health per therapy (5) Mixed stress and urge incontinence: Continue oxybutynin ER 5mg PO daily (6) Hypothyroidism: TSH 0.484 in August Continue levothyroxine 150 mcg PO daily (7) Myasthenia gravis, AChR antibody positive: No specific symptoms of this. On no current medication (8) HTN (hypertension), benign: Continue lisinopril 10mg PO daily (9) DVT prophylaxis: Low risk, not indicated. Encourage patient mobility (10) Right-sided chest pain: due to right 6th rib fracture Ultram PRN Admission and Anticipated Discharge Date Admission Date: January 16, 2021 Subjective patient said that her pain in the right ribs and back started to get worse last night she had a difficult time sleeping had a solid BM today, mixed with urine so could not be sent for analysis but if it was solid would doubt c diff reviewed chart and labs due to pain in right chest wall, obtained rib films with CXR on right patient had an age indeterminate right 6th rib fracture patient feels that her rib was fractured when I helped her stand up from the chair yesterday when I was evaluating her left hip pain I apologized if she feels that I hurt her, certainly did not intend to injure her discussed that it was possible that she already had a rib fracture from her numerous falls at home she feels like she would be ready to go home on 01/18 Review of Systems Review of Systems: All systems reviewed & are unremarkable except as noted in Subjective Physical Exam Constitutional: well developed, well nourished and + frail appearing; no acute distress Neck: trachea midline, no thyromegaly Respiratory: normal respiratory effort, lungs clear to auscultation Cardiovascular: RRR, no murmur, no edema Chest (Breasts): Chest: normal inspection of chest (palpation right chest wall causes pain) Gastrointestinal (Abdomen): normal bowel sounds, soft, nontender, no hepatosplenomegaly Musculoskeletal: Head/Neck/Chest: normocephalic, head atraumatic and neck supple Spine: + limited thoraco-lumbar ROM, + thoracic spinal tenderness and + lumbar spinal tenderness Extremities: + abnormal strength (some weakness, needs help standing up) Skin: no rashes, warm and dry Neurologic: patellar DTR's 2+ bilat, sensation intact and PERRL, EOMI, accommodation nl, no face palsy, no dysarthria Psychiatric: A+Ox3, euthymic affect Lymphatic: no cervical or axillary lymphadenopathy Results & Data Results & Data ([facility]) Vital Signs (Past 12 Hours) Vital Signs Temp Pulse Resp BP Pulse Ox 01/17/21 15:09 36.6 C 76 16 146/80 H 92 Medications Administered Current Inpatient Medications Acetaminophen (Acetaminophen 500 Mg Tab) 1,000 mg PO Q8 [facility] Stop: 02/14/21 21:59 Last Admin: 01/17/21 21:11 Dose: 1,000 mg Documented by: Aspirin (Aspirin 81 Mg Ectab) 81 mg PO [facility] Stop: 02/15/21 08:59 Last Admin: 01/17/21 08:16 Dose: 81 mg Documented by: Atorvastatin Calcium (Atorvastatin 40 Mg Tab) 40 mg PO [facility] Stop: 02/14/21 20:59 Last Admin: 01/17/21 21:10 Dose: 40 mg Documented by: Cyanocobalamin (Cyanocobalamin 500 Mcg Tablet (Vitamin B-12)) 1,000 mcg PO [facility] Stop: 02/15/21 08:59 Last Admin: 01/17/21 08:15 Dose: 1,000 mcg Documented by: Ferrous Sulfate (Ferrous Sulfate 325 Mg Tab) 325 mg PO [facility] Stop: 02/15/21 08:59 Last Admin: 01/17/21 08:16 Dose: 325 mg Documented by: Gabapentin (Gabapentin 300 Mg Cap) 600 mg PO [facility] Stop: 02/14/21 20:59 Last Admin: 01/17/21 21:11 Dose: 600 mg Documented by: Levothyroxine Sodium (Levothyroxine S[facility] 150 Mcg Tablet) [facility]: 02/15/21 06:29 Last Admin: 01/17/21 05:51 Dose: 150 mcg Documented by: Lisinopril (Lisinopril 10 Mg Tab) 10 mg PO DAILY [facility] Stop: 02/15/21 08:59 Last Admin: 01/17/21 08:16 Dose: 10 mg Documented by: Multivitamins/Minerals (Cerovite Adv Formula Tab) [facility] Stop: 02/15/21 08:59 Last Admin: 01/17/21 08:17 Dose: 1 tab Documented by: Oxybutynin Chloride (Oxybutynin Chloride Xl 5 Mg Tabcr) 5 mg PO [facility] Stop: 02/14/21 20:59 Last Admin: 01/17/21 21:10 Dose: 5 mg Documented by: Pantoprazole Sodium (Pantoprazole 40 Mg Tab) 40 [facility] Stop: 02/15/21 08:59 Last Admin: 01/17/21 08:15 Dose: 40 mg Documented by: Potassium Chloride (Potassium Chloride 10 Meq Tabcr) 10 meq PO BID [facility] Stop: 02/15/21 08:59 Last Admin: 01/17/21 21:10 Dose: 10 meq Documented by: Tramadol HCl (Tramadol Hcl 50 Mg Tablet) 50 mg PO Q6H PRN PRN Reason: pain Stop: 02/14/21 19:55 Vitamin D (Cholecalciferol 1,000 Units 25 Mcg Tab) 2,000 units [facility] Stop: 02/15/21 08:59 Last Admin: 01/17/21 08:16 Dose: 2,000 units Documented by: PG Care Time/CCT Total # of Minutes Spent Total Time Spent with Patient: Total time spent is greater than 50% in coordination of care (as documented) at patient's floor/unit and/or counseling patient: Coding Level of Care Code 92609 Subseq Hosp Care Lvl 2 Diagnoses Rib fracture S22.39XA Colitis K52.9 Fecal occult blood test positive R19.5 Weakness R53.1 Mixed stress and urge incontinence N39.46 Hypothyroidism E03.9 Myasthenia gravis, AChR antibody positive G70.00 HTN (hypertension), benign I10 DVT prophylaxis Z29.9 Right-sided chest pain R07.9
[2021-01-17] MEDS: traMADol HCL 50 MG TABLET PO PRN (22:35)
[2021-01-18] MEDS: ACETAMINOPHEN 500 MG TAB PO SCH (05:27)
[2021-01-18] MEDS: LEVOTHYROXINE SODIUM 150 MCG TABLET PO SCH (05:27)
[2021-01-18] MEDS ORDERED: LIDOCAINE 5% 1 PATCH TD SCH (09:00)
[2021-01-18] MEDS: traMADol HCL 50 MG TABLET PO PRN (09:13)
[2021-01-18] MEDS: POTASSIUM CHLORIDE 10 MEQ TABCR PO SCH (09:13)
[2021-01-18] MEDS: CHOLECALCIFEROL 1,000 UNITS 25 MCG TAB PO SCH (09:14)
[2021-01-18] MEDS: CYANOCOBALAMIN 500 MCG TABLET (VITAMIN B-12) PO SCH (09:14)
[2021-01-18] MEDS: CEROVITE ADV FORMULA TAB PO SCH (09:14)
[2021-01-18] MEDS: PANTOprazole 40 MG TAB PO SCH (09:14)
[2021-01-18] MEDS: FERROUS SULFATE 325 MG TAB PO SCH (09:14)
[2021-01-18] MEDS: ASPIRIN 81 MG ECTAB PO SCH (09:14)
[2021-01-18] MEDS: lisinopril 10 MG TAB PO SCH (09:14)
--- NOTE | 2021-01-18 11:08 | Discharge Summary ---
Date of Service January 18, 2021 Admission HPI Per Admitting Provider Katty Reynolds is an 85-year-old female who presents to the ER with diarrhea, nausea, abdominal pain, one episode of vomiting. Possible black stool (although this may be chronic with iron tablets). Associated URI symptoms with nasal congestion and sore throat. She reports symptoms ongoing for the last 4 days. Cannot think of anything unusual that she ate. She reports after her bowels improved with during her last admission with laxatives but she has not required this since discharge. No urinary symptoms. She does not have to take the tramadol regularly and is doing well with regards to her back pain. Using acetaminophen 1g HS. The patient has recently been in and out of hospital starting with a fall in October causing a T11 vertebral fracture. After starting on tramadol she complained of abdominal pressure having difficulty urinating. Diagnosed with UTI with urine culture growing Klebsiella aerogenes. This was treated with Levaquin as an inpatient from November 22-2020. During this hospitalization she was noted to have fecal impaction. She was discharged on docusate twice daily recommended prunes/prune juice daily and MiraLAX as needed. On-call note from December 08 mentions diarrhea a.m. and at night. In the ER CT abdomen/pelvis with IV contrast was concerning for nonspecific colitis affecting cecum, ascending and transverse colon. Labs were generally unremarkable however she feels she is unable to return safely home at this time especially on the back of her recent fall. Principal Diagnosis Colitis, resolved Discharge Exam Constitutional well developed, well nourished and + frail appearing; no acute distress Neck trachea midline, no thyromegaly Respiratory normal respiratory effort, lungs clear to auscultation Cardiovascular RRR, no murmur, no edema Chest (Breasts) Chest: normal inspection of chest (palpation right chest wall causes pain) Gastrointestinal (Abdomen) normal bowel sounds, soft, nontender, no hepatosplenomegaly Musculoskeletal Head/Neck/Chest: normocephalic, head atraumatic and neck supple Spine: + limited thoraco-lumbar ROM, + thoracic spinal tenderness and + lumbar spinal tenderness Extremities: + abnormal strength (some weakness, needs help standing up) Skin no rashes, warm and dry Neurologic patellar DTR's 2+ bilat, sensation intact and PERRL, EOMI, accommodation nl, no face palsy, no dysarthria Psychiatric A+Ox3, euthymic affect Lymphatic no cervical or axillary lymphadenopathy Discharge Data Allergies Allergy/AdvReac Type Severity Reaction Status Date / Time celecoxib Allergy Severe SX OF Verified 01/15/21 13:12 STROKE, FACIAL NUMBNESS, UNABLE TO SPEAK fesoterodine [From Toviaz] Allergy Unknown Unknown Verified 01/15/21 13:12 solifenacin [From Vesicare] Allergy Unknown Unknown Verified 01/15/21 13:12 morphine AdvReac Intermediate Confusion Verified 01/15/21 13:12 ciprofloxacin AdvReac Mild UPSET Verified 01/15/21 13:12 STOMACH metronidazole AdvReac Mild N/V Verified 01/15/21 13:12 Consultations 01/15/21 16:39 ED Decision to Admit Stat Ordered Studies 01/15/21 12:37 CT abd pelvis IV con only Stat Hospital Course (1) Rib fracture: right 6th rib fracture, age indeterminate pain control with Ultram, Lidoderm patch to painful area PT/OT, safe to go home, will get home therapy and home health (2) Colitis: Nonspecific colitis of cecum, ascending and most of transverse colon. WBC WNL. Lactic acid 0.9. COVID-19 negative. solid BM yesterday tolerating diet, stopped IV fluids, no need for antibiotics at this time one month ago had colitis from impacted stool, no evidence of such at this time plan to d/c home today she asked about why she gets nauseated every 4-5 weeks, I explained that it correlates with constipation she is prone to constipation and impaction stressed importance of using miralax to stay regular, can increase to twice a day if needed (3) Fecal occult blood test positive: Suspect related to colitis rather than black stool given patient is not anemic. Will give her usual pantoprazole PO daily Repeat CBC -- Hb stable no signs of active GI bleed (4) Weakness: PT/OT evals recent history of numerous falls at home, compression fractures at multiple levels right 10th rib fracture, right 6th rib fracture can return home with home health per therapy (5) Mixed stress and urge incontinence: Continue oxybutynin ER 5mg PO daily (6) Hypothyroidism: TSH 0.484 in August Continue levothyroxine 150 mcg PO daily (7) Myasthenia gravis, AChR antibody positive: No specific symptoms of this. On no current medication (8) HTN (hypertension), benign: Continue lisinopril 10mg PO daily (9) DVT prophylaxis: Low risk, not indicated. Encourage patient mobility (10) Right-sided chest pain: due to right 6th rib fracture Ultram PRN I certify that this patient is under my care and that I, or a physicians assistant broker working with me, had a face to-face encounter that meets the home health [id number] encounter requirements with this patient. The encounter with the patient was in whole, or in part, for the following medical condition, which is the primary reason for home health care (list medical condition): I certify that, based on my findings, the following services are [place]: My clinical findings support the need for the above services because: Medication Compliance and Monitoring Effective of New Medications OT Assess ADL Status and Restore Function w ADLs PT Assessment for Endurance / Balance / Strength PT Eval for Safety and Mobility PT Eval for Safety, Gait Training, Assistive Devices PT Gait and Balance Training, Strengthening and Safety Safety Skilled Nsg Assessment Teach on Disease Management and Interventions Vital Signs Further, I certify that my clinical findings support that this patient is homebound (i.e. absences from home require considerable and taxing effort and are for medical reasons or anabaptism services or infrequently or of short duration when for other reasons) because: Assistance of 1 Person for Ambulation/Activities Supportive Aid - Walker Certification for Home Health Services: Based on the above findings, I certify that this patient is confined to the home and needs intermittent senior living care, physical therapy and/or speech therapy or continues to need occupational therapy. The patient is under my care, and I have initiated the establishment of the plan of care. This patient will be followed by a physician who will periodically review the plan of care. Total Time Total Time Spent Total Time Spent (In Minutes): 33 minutes Total Time Includes: Examination of the Patient, Discharge Planning, Medication Reconciliation and Other (spoke with her daughter on phone) Discharge Plan Discharge Items Patient Disposition: Home - Home Health Services Reason For Visit: COLITIS Discharge Diagnosis: Colitis Right 6th rib fracture Condition on Discharge: Good Goals: improve strength and mobility, be cautious, use walker maintain good hydration and nutrition Activity: Resume your previous activity Weightbearing: Full weightbearing Non-emergency contact: Primary Care Provider Call non-emergency contact if: you have any medication questions and your symptoms worsen Follow-up/Referrals: Castellanos,Rome E., MD [Primary Care Provider] - 01/23/21 2:00 pm (Pt is scheduled on 01/23/21 at 2:00PM with Nieves Stuart PA-C for this hosp f/u. ) Diet: Regular Addtl Attending Provider Instructions: Medications: - ULTRAM: 50mg every 6 hours as needed for pain - LIDODERM PATCH: apply over right chest wall for 12 hours, remove for 12 hours Colitis, diarrhea: resolved on its own, formed BM yesterday no further impaction like before continue on bowel regimen as needed stay well hydrated, well nourished Frequent falls, rib fractures on right (ribs 6 and 10), numerous compression fractures pain control, home therapy, please be very cautious, always use a walker Pending Studies at Discharge: No Stand-Alone Forms: My [employer], Smoking Cessation Medications and DC Order Prescriptions: Continued levothyroxine 150 mcg tablet 150 mcg PO QAM Qty: 90 RF: 3 atorvastatin 40 mg tablet 40 mg PO HS Qty: 90 RF: 3 pantoprazole 40 mg tablet,delayed release (DR/EC) 40 mg PO QAM Qty: 30 RF: 11 gabapentin 300 mg capsule 600 mg PO HS Qty: 60 RF: 5 oxybutynin chloride 5 mg tablet extended release 24hr 5 mg PO HS Qty: 30 RF: 11 lisinopril 10 mg tablet 10 mg PO DAILY Qty: 30 RF: 6 ascorbic acid (vitamin C) 500 mg tablet 500 mg PO QAM RF: 0 ferrous sulfate [FeroSul] 325 mg (65 mg iron) tablet 325 mg PO QAM RF: 0 Centrum Silver Women 8 mg iron-400 mcg-300 mcg tablet 1 tab PO QAM RF: 0 aspirin [Adult Low Dose Aspirin] 81 mg tablet,delayed release (DR/EC) 81 mg PO QAM RF: 0 docusate sodium 100 mg Capsule 100 mg PO BID Qty: 60 RF: 0 polyethylene glycol 3350 [Miralax] 17 gram Powder In Packet 17 g PO DAILY Qty: 30 RF: 0 calcitonin (salmon) 200 unit/actuation [place],Non-Aerosol 1 spray NA QPM Qty: 3.7 RF: 0 cyanocobalamin (vitamin B-12) [Vitamin B-12] 1,000 mcg Tablet 1,000 mcg PO QAM RF: 0 cholecalciferol (vitamin D3) [Vitamin D3] 2,000 unit Tablet 2,000 unit PO QAM RF: 0 vitamin A 8,000 unit Capsule 0 unit PO QAM RF: 0 vitamin E 100 unit Capsule 0 unit PO QAM RF: 0 acetaminophen 500 mg tablet 1,000 mg PO TID PRN (Reason: Pain) RF: 0 tramadol 50 mg tablet 50 mg PO Q6H PRN (Reason: pain) Qty: 20 RF: 0 lidocaine 5 % Adhesive Patch,Medicated 1 patch transdermal QAM Qty: 15 RF: 0 Discharge Orders: Discharge Order (Routine); Ordered 01/18/21 Ordered By: Roni Xiao/Other Patient Handouts: What Is Ulcerative Colitis?, Rib Fracture (Broken Rib), Preventing Falls in the Home, Colitis Ulcerative Lifestyle, Exercises to Prevent Falls, Understanding Colitis Admission Data Admit Date/Time: 01/16/21 16:21 Attending Provider: Roni Pimentel Admit Provider: Suleiman Dietz Primary Care Provider: Rome Castellanos Other Providers: Suleiman Dietz ; [facility] Other Interventions: Discharge Summary Assessment (RN) Last Done: 01/18/21 11:23 Coding Level of Care Code D/C Day Management >30 mins Diagnoses Rib fracture S22.39XA Colitis K52.9 Fecal occult blood test positive R19.5 Weakness R53.1 Mixed stress and urge incontinence N39.46 Hypothyroidism E03.9 Myasthenia gravis, AChR antibody positive G70.00 HTN (hypertension), benign I10 DVT prophylaxis Z29.9 Right-sided chest pain R07.9
== END 2021-01-18 12:19 | disposition home health service (06) ==
LOC: ED 12:12 → 3N 12:12 → SUATTDRO 17:55 → 3N 19:39

== ENCOUNTER 2021-05-13 13:27 | Observation (INO) ==
[2021-05-13] MEDS ORDERED: ACETAMINOPHEN 1,000 MG/100 ML VIAL IV STA (14:07)
[2021-05-13] MEDS ORDERED: FAMOTIDINE 20MG IV PUSH 20 MG/5 ML SYR IV STA (14:07)
[2021-05-13] MEDS ORDERED: SODIUM CHLORIDE 0.9% 500 ML IV ONE (14:07)
[2021-05-13] MEDS ORDERED: ONDANSETRON INJ 2 MG/ML 2 ML VIAL IV STA (14:09)
[2021-05-13] MEDS ORDERED: OPTIRAY 320 100ml IV ONE (14:15)
[2021-05-13 14:22] LABS: Basophils # (auto) 0.01 K/uL (0-0.2); Basophils % (auto) 0.2 %; Hematocrit (blood only) 49.9 % (37-47); Hemoglobin 16.7 g/dL (12.0-16.0); Immature Granulocytes # (auto) 0.01 K/uL (0.00-0.02); Immature Granulocytes % (auto) 0.2 %; Lymphocytes # (auto) 0.49 K/uL (1.2-3.4); Lymphocytes % (auto) 10.7 %; Mean Corpuscular Hemoglobin 33.5 pg (25-34); Mean Corpuscular Hgb Conc 33.5 g/dL (32-36); Mean Platelet Volume 10.8 fL (7.4-10.4); Monocytes # (auto) 0.28 K/uL (0.11-0.59); Monocytes % (auto) 6.1 %; Neutrophils # (auto) 3.81 K/uL (1.4-6.5); Neutrophils % (auto) 82.8 %; Platelet Count 127 K/uL (130-400); RDW Coefficient of Variation 13.1 % (11.5-14.5); RDW Standard Deviation 48.1 fL (36.4-46.3); Red Blood Count 4.99 M/uL (4.2-5.4)
[2021-05-13 14:36] LABS: INR 1.1 (0.9-1.1)
[2021-05-13 14:45] LABS: Alanine Aminotransferase 61 U/L (12-78); Albumin Level 3.8 gm/dl (3.4-5.0); Aspartate Aminotransferase 107 U/L (15-37); BUN Creatinine Ratio 15.9 (10-20); Bilirubin Direct 0.4 mg/dl (0-0.2); Blood Urea Nitrogen 17 mg/dl (7-18); Calcium 9.5 mg/dl (8.5-10.1); Carbon Dioxide 28 mmol/L (21-32); Chloride 99 mmol/L (98-107); Creatinine Clr Calc Pharmacy 34.2 ml/min; Est GFR (African American) 55.6 ml/min; Est GFR (Non-African American) 47.9 ml/min; Glucose 154 mg/dl (70-99); Lipase 100 U/L (73-393); Magnesium 2.3 mg/dl (1.8-2.4); Potassium 3.8 mmol/L (3.5-5.1); Sodium 138 mmol/L (136-145)
[2021-05-13 14:48] LABS: Albumin Globulin Ratio 0.9 (0.9-2); Alkaline Phosphatase 114 U/L (45-117); Bilirubin,Total 1.4 mg/dl (0.2-1); Globulin 4.3 gm/dl (2.5-4.0); Phosphorus 3.1 mg/dl (2.5-4.9); Total Protein 8.1 gm/dl (6.4-8.2); Troponin I < 0.015 ng/ml (0-0.045)
--- NOTE | 2021-05-13 16:38 | CT Scan Report ---
CT SCAN OF THE ABDOMEN AND PELVIS WITH IV CONTRAST CLINICAL HISTORY: Nausea and vomiting. Diarrhea. Fever. COMPARISON STUDY: Abdominal CT dated 01/15/2021. TECHNIQUE: Following the IV administration of 93 cc of Optiray 320, CT scan of the abdomen and pelvi s is performed from the lung bases to the proximal femora. Images are reviewed in the axial, sagittal , and coronal planes. IV contrast was administered without complication. A dose lowering technique wa s utilized adhering to the principles of ALARA. The examination is degraded by motion artifact, as we ll as by streak artifact from the arms which could not be related above the abdomen. CT DOSE: 514.17 mGy.cm FINDINGS: Lung bases: A cardiac pacemaker is noted in the left chest wall. The heart is top normal in size and without pericardial effusion. The lung bases are clear noting bibasilar scarring/atelectasis. Liver: The contrast-enhanced liver is normal in size, contour, and attenuation. There is no intrahepa tic biliary ductal dilatation. Pneumobilia is noted. The hepatic veins and portal veins are patent. Gallbladder: Surgically absent. Spleen: Normal in size and attenuation. Pancreas: The Pancreas is atrophic. A 12 mm ovoid cystic lesion in the pancreatic body is unchanged a nd typical for a sidebranch IPMN. Parenchymal calcifications suggesting chronic pancreatitis. Adrenal glands: Unremarkable. Kidneys: The contrast enhanced kidneys demonstrate cortical atrophy and are without hydronephrosis. S cattered subcentimeter cortical hypodensities likely represent cysts but are too small for definitive characterization. The kidneys enhance symmetrically. Abdominal vasculature: There is advanced atherosclerotic calcification and mild ectasia of the abdomi nal aorta. Bowel: There is rectosigmoid fecal impaction and moderate constipation. No bowel obstruction is seen. There is moderate colonic diverticulosis without CT evidence of acute diverticulitis. Mild rectal wa ll thickening is noted. The appendix is not identified and reported surgically absent. Peritoneum: There is no intraperitoneal free air or abdominal ascites. Lymphadenopathy: None. Pelvic viscera: Evaluation of the pelvis is degraded by streak artifact from a left hip arthroplasty. The bladder is normal as visualized. The uterus is surgically absent. No adnexal lesion is seen. Skeletal structures: The skeletal structures are osteopenic. There are chronic compression deformitie s of T11 and T12 with evidence of previous T12 vertebroplasty. No lytic or blastic lesions are seen. 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 IMPRESSION: 1. Streak and motion compromised examination. 2. There is rectosigmoid fecal impaction and moderate constipation. 3. Mild wall thickening is seen in the rectum. Correlate clinically for evidence of stercoral proctit is. 4. No bowel obstruction is identified. 5. Colonic diverticulosis without CT evidence of acute diverticulitis. 6. Additional findings as above. ACT 112: Negative or not required by law. Electronically signed by: Michael Scherer M.D. 05/13/2021 4:36 PM
--- NOTE | 2021-05-13 17:10 | XRay Report ---
SINGLE VIEW CHEST CLINICAL HISTORY: Fever. Hypoxia. FINDINGS: An AP, portable, upright chest radiograph is compared to study dated 01/17/2021. Correlation is made with chest CT dated 10/28/2020. The examination is mildly degraded by portable technique and p atient rotation. A 3-lead cardiac AICD is unchanged in position and partially obscures the left lung base. The heart is enlarged noting atherosclerotic calcification of the thoracic aorta. The pulmonary vasculature is noncongested. Chronic interstitial thickening is similar to previous. Mild scarring/a telectasis is noted at the lung bases. No airspace consolidation or large pleural effusion is identif ied. No pneumothorax is seen. The skeletal structures are osteopenic. The bony thorax is grossly inta ct. Advanced arthritic change is noted in the shoulders and thoracic spine. IMPRESSION: 1. Cardiomegaly and AICD. There is no radiographic evidence of congestive failure. 2. No airspace consolidation or large pleural effusion is identified. ACT 112: Negative or not required by law. Electronically signed by: Michael Scherer M.D. 05/13/2021 5:09 PM
[2021-05-13] MEDS ORDERED: DOXYCYCLINE HYCLATE 100 MG in DEXTROSE 5% 100 ML IV STA (17:38)
[2021-05-13 18:19] LABS: Lyme Ab IgG w/WB Rflx Negative (Negative); Lyme Ab IgM w/WB Rflx Negative (Negative)
--- NOTE | 2021-05-13 18:34 | Emergency Department Note ---
Impression & Plan Gastroenteritis, Lymphopenia, Thrombocytopenia, Elevated AST (SGOT), Dehydration, Hypoxia ED Provider Note NAME: OLE PATTON AGE: 86 SEX: F ARRIVES VIA: Walk-In INFORMANT: Patient, ED PROVIDER(S): Timo Cole MD CHIEF COMPLAINT: Fever, n/v/d. PLAN: Disposition: Admit MEDICAL DECISION MAKING: The patient is a pleasant 86-year-old woman with a past medical history of osteoporosis, MGUS, myasthenia gravis, hypertension, GERD, IBS, diabetes, diabetic neuropathy, nonischemic cardiomyopathy, CKD who presents emerge department accompanied by her for evaluation of generalized weakness, nausea, vomiting, diarrhea and fevers for the past couple of days. She denies cough or congestion. She reports she did get vaccinated against COVID-19. The reports that she was prescribed an antibiotic empirically by their doctor for possible UTI though no sample was obtained and she has had 2 doses of the antibiotic. On arrival the patient is ill-appearing but no acute distress, afebrile with stable vital signs. Of note, the patient did develop mild hypoxia to upper 80s when she was sleeping. She appears clinically dry. Lungs are clear. Abdomen is benign. Of note, the patient eventually did have a bowel movement which was Hemoccult negative per RN however dark in color likely related the patient's use of iron supplements. WBC 4.6K with lymphopenia to 0.49. H/H 16.7/49.9 with the patient's clinically dry appearance. Platelets 127K slightly decreased. Chemistry without metabolic acidosis. Electrolytes without significant abnormality. LFTs with slight elevation with AST 107 and total bilirubin 1.4 and direct bilirubin 0.4. Troponin negative/undetectable. Lipase not elevated. UA is pending. COVID-[address] of the abdomen pelvis with fecal impaction and constipation with possibility of stercoral proctitis. Given the patient's lymphopenia and mild thrombocytopenia, with transaminitis, will treat empirically for possible anaplasmosis though Anaplasma smear was negative. Lyme screen was negative. On exam plan for admission reviewed with the patient and her they agreed. Case was discussed with Dr. Muir, [facility] hospitalist, who will evaluate the patient for admission. Triage Nursing notes reviewed and agree them. Prior medical records reviewed Vital Signs: reviewed and remarkable for low oxygen. Differential diagnosis: Gastroenteritis, food borne illness, infections, appendicitis, diverticulitis, i nflammatory bowel disease, obstruction, GI bleed, biliary pathology, volvulus, as well as other pathologies. ER treatment provided: See below. Diagnostics interpreted by me: Cardiac Monitoring: An order for continuous cardiac monitoring was placed and demonstrated normal sinus rhythm, 74 bpm, no ectopy. Laboratory studies: See below Imaging studies: See below Consultation(s): Case was discussed with Dr. Muir, [facility] hospitalist, who will evaluate the patient for admission. HPI: The patient is a pleasant 86-year-old woman with a past medical history of osteoporosis, MGUS, myasthenia gravis, hypertension, GERD, IBS, diabetes, diabetic neuropathy, nonischemic cardiomyopathy, CKD who presents emerge department accompanied by her for evaluation of generalized weakness, nausea, vomiting, diarrhea and fevers for the past couple of days. She denies cough or congestion. She reports she did get vaccinated against COVID-19. The reports that she was prescribed an antibiotic empirically by their d octor for possible UTI though no sample was obtained and she has had 2 doses of the antibiotic. ROS: See above HPI for pertinent positives & negatives. A total of 10 systems reviewed and were otherwise negative. PAST MEDICAL HISTORY:See Below PAST SURGICAL HISTORY:See Below FAMILY HISTORY:See Below SOCIAL HISTORY:See Below HOME MEDICATIONS:See Below ALLERGIES:See Below VITALS:See Below PHYSICAL EXAMINATION: GENERAL: Awake, alert, uncomfortable/fatigued-appearing, in no distress HENT: Normocephalic, atraumatic. Oropharynx with dry mucous membranes and oth erwise unremarkable. EYES: Normal conjunctiva. Sclera non-icteric. NECK: Supple. No nuchal rigidity. FROM. No JVD. RESPIRATORY: Clear to auscultation. CARDIAC: Regular rate, normal rhythm. Extremities warm and well perfused. Pulses equal. ABDOMEN: Soft, non-distended. No tenderness to palpation. No rebound or guarding. No masses. RECTAL: Deferred. MUSCULOSKELETAL: Chest examination reveals no tenderness. The back is symmetrical on inspection without obvious abnormality. There is no CVA tenderne ss to palpation. No joint edema. LOWER EXTREMITIES: Calves are equal size bilaterally and non-tender. No edema. No discoloration. NEURO: No focal sensory or motor deficits noted. Generalized weakness throughout with 4/5 strength. SKIN: No rash or jaundice noted. Timo Cole MD Past Med/Surg History Medical History Acute back pain Acute UTI Anemia Cardiac defibrillator in place Cardiomyopathy Carotid artery stenosis Chronic pancreatitis CKD (chronic kidney disease) stage 3, GFR 30-59 ml/min Colitis Degenerative joint disease (DJD) of hip Diabetes mellitus, type 2 Diabetic nephropathy Diabetic peripheral neuropathy Diverticulitis Diverticulosis of colon Duodenal ulcer Fall Fall GERD (gastroesophageal reflux disease) GERD without esophagitis HLD (hyperlipidemia) HTN (hypertension), benign Hypercholesterolemia Hypothyroid IBS (irritable bowel syndrome) ICD (implantable cardioverter-defibrillator) battery depletion Insomnia Lumbar canal stenosis Lumbar spondylosis Nocturia Nonischemic cardiomyopathy Osteoarthritis Osteoporosis Presence of cardiac pacemaker Pulmonary nodule Rib fracture 09/17/18 R/T FALL. D/C'D TO [facility]. Scaphoid fracture of wrist Urge incontinence of urine Vitamin D deficiency, unspecified Surgical History History of cardiac cath PER PT, 5-10 YEARS AGO AT [facility] - REASON? - NO STENTS/ANGIOPLASTY History of cholecystectomy History of colonoscopy History of ERCP w/ sphincterotomy & CBD stent History of esophagogastroduodenoscopy (EGD) History of vertebroplasty T12 S/P appendectomy S/P hysterectomy S/P ICD (internal cardiac defibrillator) procedure Biventricular AICD placed in 2007, Generator Change-out 02/15/2020 -- now has a [employer] Claria MRI RN MIDWIFE-D Bi-V AICD. S/P kyphoplasty S/P partial colectomy S/P rotator cuff surgery Family History Son Diabetes Sister Breast cancer Denies family history of Ovarian cancer Prostate cancer Hearing loss Coronary heart disease No family history of adverse response to anesthesia No family history of bleeding disorder Heart disease Allergies Myocardial infarction Colorectal cancer Cancer Hypertension Stroke Asthma Social History Smoking Status: Never smoker Second Hand Exposure: No; Hx Alcohol Use: No Hx Substance Use: No Preferred Language: Bulgarian Communication Ability: Effective Visual Impairment: No Limitations Hearing Ability: Normal Sales Advisory Manager Required: No Beliefs That Will Affect Care: None marital status: Current Living Situation: Parent current occupational status: retired current occupation: retired from career with [employer] How many Children do You have: 4 Feels Safe at Home: Yes Childhood Exposure to Second-Hand Smoke: No caffeine: Yes Dental Care, Regularly: No Physical Activity Frequency: Does not Exercise Seatbelt Use: always Sunscreen Use: No Assistive Devices: Cane and Walker Allergies Allergies Allergy/AdvReac Type Severity Reaction Status Date / Time celecoxib Allergy Severe SX OF Verified 05/13/21 15:41 STROKE, FACIAL NUMBNESS, UNABLE TO SPEAK fesoterodine [From Toviaz] Allergy Unknown Unknown Verified 05/13/21 15:41 solifenacin [From Vesicare] Allergy Unknown Unknown Verified 05/13/21 15:41 morphine AdvReac Intermediate Confusion Verified 05/13/21 15:41 ciprofloxacin AdvReac Mild UPSET Verified 05/13/21 15:41 STOMACH metronidazole AdvReac Mild N/V Verified 05/13/21 15:41 Home Meds Home Medications Medication Instructions Recorded Confirmed cholecalciferol (vitamin D3) 50 2,000 unit PO QAM 08/05/18 05/13/21 mcg (2,000 unit) tablet (Vitamin D3) ascorbic acid (vitamin C) 500 mg 500 mg PO QAM tab 02/26/19 05/13/21 tablet aspirin 81 mg tablet,delayed 81 mg PO QAM 08/21/20 05/13/21 release (Adult Low Dose Aspirin) ferrous sulfate 325 mg (65 mg 325 mg PO QAM 08/21/20 05/13/21 iron) tablet (FeroSul) multivit with 1 tab PO QAM 08/21/20 05/13/21 [id number] 8 mg iron-400 mcg-300 mcg tablet (Centrum Silver Women) acetaminophen 500 mg tablet 1,000 mg PO TID PRN 01/15/21 05/13/21 vitamin A 2,400 mcg capsule 2,400 mcg PO QAM cap 01/23/21 05/13/21 vitamin E 100 unit capsule 100 unit PO QAM cap 01/23/21 05/13/21 cyanocobalamin (vitamin B-12) 500 mcg PO QAM tab 03/26/21 05/13/21 1,000 mcg tablet (Vitamin B-12) glucosamine-chondroitin 250 mg-200 2 tab PO TID 05/13/21 05/13/21 mg tablet (Osteo Bi-Flex) Previous Rx's Medication Instructions Recorded oxybutynin chloride 5 mg 5 mg PO HS #30 tab 09/05/20 tablet,extended release 24 hr polyethylene glycol 3350 17 gram 17 g PO DAILY #30 ea 11/30/20 oral powder packet (Miralax) lisinopril 10 mg tablet 10 mg PO DAILY #90 tab 03/21/21 levothyroxine 137 mcg tablet 137 mcg PO DAILY #90 tab 03/26/21 gabapentin 300 mg capsule 600 mg PO HS #60 cap 04/23/21 alendronate 70 mg tablet 70 mg PO .COMPLEX #12 tab 04/25/21 atorvastatin 40 mg tablet 40 mg PO HS #90 tab 04/30/21 pantoprazole 40 mg tablet,delayed 40 mg PO QAM #30 tab 05/07/21 release nitrofurantoin 100 mg PO BID 5 Days #10 cap 05/12/21 monohydrate/macrocrystals 100 mg capsule (Macrobid) Results & Data (ED) Vital Signs Vital Signs - 24 hr 05/13/21 13:27 05/13/21 13:37 05/13/21 15:27 Temperature 36.7 C Temperature Source Temporal Artery Scan Pulse Rate 105 H Pulse Rate [Apical] 99 H 75 Pulse Rhythm [Apical] Regular Regular Respiratory Rate 30 H 20 26 H Respiratory Effort / Characteristics Non-Labored Non-Labored Spontaneous Non-Labored Respiratory Depth Normal Normal Normal Respiratory Pattern Regular Blood Pressure 137/85 Blood Pressure [Left Arm] 157/92 H 157/92 H Blood Pressure Mean 102 Blood Pressure Mean [Left Arm] 113 113 Blood Pressure Position Sitting Pulse Oximetry 99 94 95 Oxygen Delivery Method Room Air Room Air Nasal Cannula Oxygen Flow Rate 3 Sepsis Recent Fever Within 48 Hours Yes Sepsis New/Unexplained Change in Mental Status No Sepsis Action Taken by Nursing No Action Required 05/13/21 17:00 05/13/21 19:00 Temperature Temperature Source Pulse Rate Pulse Rate [Apical] 70 62 Pulse Rhythm [Apical] Regular Regular Respiratory Rate 18 25 H Respiratory Effort / Characteristics Non-Labored Respiratory Depth Normal Normal Respiratory Pattern Blood Pressure Blood Pressure [Left Arm] 147/82 H 142/80 H Blood Pressure Mean Blood Pressure Mean [Left Arm] 103 100 Blood Pressure Position Pulse Oximetry 97 97 Oxygen Delivery Method Nasal Cannula Nasal Cannula Oxygen Flow Rate 3 3 Sepsis Recent Fever Within 48 Hours Sepsis New/Unexplained Change in Mental Status Sepsis Action Taken by Nursing Laboratory Data Attestation: I reviewed the patient's lab results. Result diagrams: 05/13/21 14:10 05/13/21 14:10 Lab Results 05/13/21 05/13/21 05/13/21 Range/Units 14:10 14:10 14:10 WBC 4.60 L (4.8-10.8) K/uL RBC 4.99 (4.2-5.4) M/uL Hgb 16.7 H (12.0-16.0) g/dL Hct 49.9 H (37-47) % MCV 100.0 (80-100) fL MCH 33.5 (25-34) pg MCHC 33.5 (32-36) g/dL RDW Std Deviation 48.1 H (36.4-46.3) fL RDW Coeff of Radha 13.1 (11.5-14.5) % Plt Count 127 L (130-400) K/uL MPV 10.8 H (7.4-10.4) fL Immature Gran % (Auto) 0.2 % Neut % (Auto) 82.8 % Lymph % (Auto) 10.7 % Burnett % (Auto) 6.1 % Eos % (Auto) 0.0 % Baso % (Auto) 0.2 % Neut # (Auto) 3.81 (1.4-6.5) K/uL Lymph # (Auto) 0.49 L (1.2-3.4) K/uL Burnett # (Auto) 0.28 (0.11-0.59) K/uL Eos # (Auto) 0.00 (0-0.5) K/uL Baso # (Auto) 0.01 (0-0.2) K/uL Immature Gran # (Auto) 0.01 (0.00-0.02) K/uL PT 11.0 (9.0-12.0) Seconds INR 1.1 (0.9-1.1) Sodium 138 (136-145) mmol/L Potassium 3.8 (3.5-5.1) mmol/L Chloride 99 (98-107) mmol/L Carbon Dioxide 28 (21-32) mmol/L Anion Gap 11.0 (3-11) BUN 17 (7-18) mg/dl Creatinine 1.04 (0.6-1.2) mg/dl Est Cr Clr Drug Dosing 34.2 ml/min Est GFR ( Amer) 55.6 ml/min Est GFR (Non-Af Amer) 47.9 ml/min BUN/Creatinine Ratio 15.9 (10-20) Glucose 154 H (70-99) mg/dl Calcium 9.5 (8.5-10.1) mg/dl Phosphorus 3.1 (2.5-4.9) mg/dl Magnesium 2.3 (1.8-2.4) mg/dl Total Bilirubin 1.4 H (0.2-1) mg/dl Direct Bilirubin 0.4 H (0-0.2) mg/dl AST 107 H (15-37) U/L ALT 61 (12-78) U/L Alkaline Phosphatase 114 (45-117) U/L Troponin I < 0.015 (0-0.045) ng/ml Total Protein 8.1 (6.4-8.2) gm/dl Albumin 3.8 (3.4-5.0) gm/dl Globulin 4.3 H (2.5-4.0) gm/dl Albumin/Globulin Ratio 0.9 (0.9-2) Lipase 100 (73-393) U/L Urine Color Urine Appearance (Clear) Urine pH (4.5-7.5) Ur Specific [place] (1.000-1.030) Urine Protein (Negative) Urine Glucose (UA) (Negative) Urine Ketones (Negative) Urine Blood (Negative) Urine Nitrite (Negative) Urine Bilirubin (Negative) Urine Urobilinogen (Negative) Ur Leukocyte Esterase (Negative) Urine WBC (Auto) (0-5) /hpf Urine RBC (Auto) (0-4) /hpf U Hyaline Cast (Auto) (0-5) /lpf U Epithel Cells (Auto) (0-5) /lpf Urine Bacteria (Auto) (Negative) Granular Casts (0) /lpf Anaplasma Smear See Comment Lyme Disease IgG Ab (Negative) Lyme Disease IgM Ab (Negative) COVID-19 Eval Order SARS-CoV-2 (PCR) (Negative) 05/13/21 05/13/21 05/13/21 Range/Units 14:10 14:50 14:50 WBC (4.8-10.8) K/uL RBC (4.2-5.4) M/uL Hgb (12.0-16.0) g/dL Hct (37-47) % MCV (80-100) fL MCH (25-34) pg MCHC (32-36) g/dL RDW Std Deviation (36.4-46.3) fL RDW Coeff of Radha (11.5-14.5) % Plt Count (130-400) K/uL MPV (7.4-10.4) fL Immature Gran % (Auto) % Neut % (Auto) % Lymph % (Auto) % Burnett % (Auto) % Eos % (Auto) % Baso % (Auto) % Neut # (Auto) (1.4-6.5) K/uL Lymph # (Auto) (1.2-3.4) K/uL Burnett # (Auto) (0.11-0.59) K/uL Eos # (Auto) (0-0.5) K/uL Baso # (Auto) (0-0.2) K/uL Immature Gran # (Auto) (0.00-0.02) K/uL PT (9.0-12.0) Seconds INR (0.9-1.1) Sodium (136-145) mmol/L Potassium (3.5-5.1) mmol/L Chloride (98-107) mmol/L Carbon Dioxide (21-32) mmol/L Anion Gap (3-11) BUN (7-18) mg/dl Creatinine (0.6-1.2) mg/dl Est Cr Clr Drug Dosing ml/min Est GFR ( Amer) ml/min Est GFR (Non-Af Amer) ml/min BUN/Creatinine Ratio (10-20) Glucose (70-99) mg/dl Calcium (8.5-10.1) mg/dl Phosphorus (2.5-4.9) mg/dl Magnesium (1.8-2.4) mg/dl Total Bilirubin (0.2-1) mg/dl Direct Bilirubin (0-0.2) mg/dl AST (15-37) U/L ALT (12-78) U/L Alkaline Phosphatase (45-117) U/L Troponin I (0-0.045) ng/ml Total Protein (6.4-8.2) gm/dl Albumin (3.4-5.0) gm/dl Globulin (2.5-4.0) gm/dl Albumin/Globulin Ratio (0.9-2) Lipase (73-393) U/L Urine Color Urine Appearance (Clear) Urine pH (4.5-7.5) Ur Specific [place] (1.000-1.030) Urine Protein (Negative) Urine Glucose (UA) (Negative) Urine Ketones (Negative) Urine Blood (Negative) Urine Nitrite (Negative) Urine Bilirubin (Negative) Urine Urobilinogen (Negative) Ur Leukocyte Esterase (Negative) Urine WBC (Auto) (0-5) /hpf Urine RBC (Auto) (0-4) /hpf U Hyaline Cast (Auto) (0-5) /lpf U Epithel Cells (Auto) (0-5) /lpf Urine Bacteria (Auto) (Negative) Granular Casts (0) /lpf Anaplasma Smear Lyme Disease IgG Ab Negative (Negative) Lyme Disease IgM Ab Negative (Negative) COVID-19 Eval Order Covid19 at [facility] SARS-CoV-2 (PCR) NEGATIVE (Negative) 05/13/21 Range/Units Unknown WBC (4.8-10.8) K/uL RBC (4.2-5.4) M/uL Hgb (12.0-16.0) g/dL Hct (37-47) % MCV (80-100) fL MCH (25-34) pg MCHC (32-36) g/dL RDW Std Deviation (36.4-46.3) fL RDW Coeff of Radha (11.5-14.5) % Plt Count (130-400) K/uL MPV (7.4-10.4) fL Immature Gran % (Auto) % Neut % (Auto) % Lymph % (Auto) % Burnett % (Auto) % Eos % (Auto) % Baso % (Auto) % Neut # (Auto) (1.4-6.5) K/uL Lymph # (Auto) (1.2-3.4) K/uL Burnett # (Auto) (0.11-0.59) K/uL Eos # (Auto) (0-0.5) K/uL Baso # (Auto) (0-0.2) K/uL Immature Gran # (Auto) (0.00-0.02) K/uL PT (9.0-12.0) Seconds INR (0.9-1.1) Sodium (136-145) mmol/L Potassium (3.5-5.1) mmol/L Chloride (98-107) mmol/L Carbon Dioxide (21-32) mmol/L Anion Gap (3-11) BUN (7-18) mg/dl Creatinine (0.6-1.2) mg/dl Est Cr Clr Drug Dosing ml/min Est GFR ( Amer) ml/min Est GFR (Non-Af Amer) ml/min BUN/Creatinine Ratio (10-20) Glucose (70-99) mg/dl Calcium (8.5-10.1) mg/dl Phosphorus (2.5-4.9) mg/dl Magnesium (1.8-2.4) mg/dl Total Bilirubin (0.2-1) mg/dl Direct Bilirubin (0-0.2) mg/dl AST (15-37) U/L ALT (12-78) U/L Alkaline Phosphatase (45-117) U/L Troponin I (0-0.045) ng/ml Total Protein (6.4-8.2) gm/dl Albumin (3.4-5.0) gm/dl Globulin (2.5-4.0) gm/dl Albumin/Globulin Ratio (0.9-2) Lipase (73-393) U/L Urine Color Dark Yellow Urine Appearance Clear (Clear) Urine pH 6.0 (4.5-7.5) Ur Specific [place] > 1.045 H (1.000-1.030) Urine Protein 2+ H (Negative) Urine Glucose (UA) Negative (Negative) Urine Ketones Negative (Negative) Urine Blood Trace H (Negative) Urine Nitrite Negative (Negative) Urine Bilirubin Negative (Negative) Urine Urobilinogen Negative (Negative) Ur Leukocyte Esterase Negative (Negative) Urine WBC (Auto) 1-5 (0-5) /hpf Urine RBC (Auto) 10-30 H (0-4) /hpf U Hyaline Cast (Auto) 1-5 (0-5) /lpf U Epithel Cells (Auto) >30 H (0-5) /lpf Urine Bacteria (Auto) Negative (Negative) Granular Casts 1-5 H (0) /lpf Anaplasma Smear Lyme Disease IgG Ab (Negative) Lyme Disease IgM Ab (Negative) COVID-19 Eval Order SARS-CoV-2 (PCR) (Negative) Administered Medications Discontinued Medications Sodium Chloride (Nss) 500 mls @ 999 mls/hr IV .Q31M ONE Stop: 05/13/21 14:37 Last Infusion: 05/13/21 15:44 Dose: 0 mls/hr Documented by: [id number] Admin: 05/13/21 14:50 Dose: 999 mls/hr Documented by: [id number] Acetaminophen (Ofirmev) 1,000 mg in 100 mls @ 400 mls/hr IV NOW STA Stop: 05/13/21 14:21 Last Infusion: 05/13/21 15:44 Dose: 0 mls/hr Documented by: [id number] Admin: 05/13/21 14:50 Dose: 400 mls/hr Documented by: [id number] Famotidine (Pepcid 20mg Iv Push) 20 mg in 5 mls @ 2.5 mls/min IV NOW STA Stop: 05/13/21 14:08 Last Admin: 05/13/21 14:50 Dose: 2.5 mls/min Documented by: [id number] Doxycycline Hyclate 100 mg/ (Dextrose) 110 mls @ 50 mls/hr IV NOW STA Stop: 05/13/21 19:49 Last Admin: 05/13/21 18:22 Dose: 50 mls/hr Documented by: [id number] Ioversol (Optiray 320 100ml) 93 ml IV ONCE ONE Stop: 05/13/21 14:16 Last Admin: 05/13/21 14:15 Dose: 93 ml Documented by: [id number] Ondansetron HCl (Ondansetron Inj 2 Mg/Ml 2 Ml Vial) 4 mg IV NOW STA Stop: 05/13/21 14:10 Last Admin: 05/13/21 14:50 Dose: 4 mg Documented by: [id number] Imaging Data Radiologist's Impression: Abdomen/Pelvis CT 05/13/21 14:11 CT SCAN OF THE ABDOMEN AND PELVIS WITH IV CONTRAST CLINICAL HISTORY: Nausea and vomiting. Diarrhea. Fever. COMPARISON STUDY: Abdominal CT dated 01/15/2021. TECHNIQUE: Following the IV administration of 93 cc of Optiray 320, CT scan of the abdomen and pelvis is performed from the lung bases to the proximal femora. Images are reviewed in the axial, sagittal, and coronal planes. IV contrast was administered without complication. A dose lowering technique was utilized adhering to the principles of ALARA. The examination is degraded by motion artifact, as well as by streak artifact from the arms which could not be related above the abdomen. CT DOSE: 514.17 mGy.cm FINDINGS: Lung bases: A cardiac pacemaker is noted in the left chest wall. The heart is top normal in size and without pericardial effusion. The lung bases are clear noting bibasilar scarring/atelectasis. Liver: The contrast-enhanced liver is normal in size, contour, and attenuation. There is no intrahepatic biliary ductal dilatation. Pneumobilia is noted. The hepatic veins and portal veins are patent. Gallbladder: Surgically absent. Spleen: Normal in size and attenuation. Pancreas: The Pancreas is atrophic. A 12 mm ovoid cystic lesion in the pancreatic body is unchanged and typical for a sidebranch IPMN. Parenchymal calcifications suggesting chronic pancreatitis. Adrenal glands: Unremarkable. Kidneys: The contrast enhanced kidneys demonstrate cortical atrophy and are without hydronephrosis. Scattered subcentimeter cortical hypodensities likely represent cysts but are too small for definitive characterization. The kidneys enhance symmetrically. Abdominal vasculature: There is advanced atherosclerotic calcification and mild ectasia of the abdominal aorta. Bowel: There is rectosigmoid fecal impaction and moderate constipation. No bowel obstruction is seen. There is moderate colonic diverticulosis without CT evidence of acute diverticulitis. Mild rectal wall thickening is noted. The appendix is not identified and reported surgically absent. Peritoneum: There is no intraperitoneal free air or abdominal ascites. Lymphadenopathy: None. Pelvic viscera: Evaluation of the pelvis is degraded by streak artifact from a left hip arthroplasty. The bladder is normal as visualized. The uterus is surgically absent. No adnexal lesion is seen. Skeletal structures: The skeletal structures are osteopenic. There are chronic compression deformities of T11 and T12 with evidence of previous T12 verteb roplasty. No lytic or blastic lesions are seen. 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 IMPRESSION: 1. Streak and motion compromised examination. 2. There is rectosigmoid fecal impaction and moderate constipation. 3. Mild wall thickening is seen in the rectum. Correlate clinically for evidence of stercoral proctitis. 4. No bowel obstruction is identified. 5. Colonic diverticulosis without CT evidence of acute diverticulitis. 6. Additional findings as above. ACT 112: Negative or not required by law. Electronically signed by: Michael Scherer M.D. 05/13/2021 4:36 PM Chest X-Ray 05/13/21 16:28 SINGLE VIEW CHEST CLINICAL HISTORY: Fever. Hypoxia. FINDINGS: An AP, portable, upright chest radiograph is compared to study dated 01/17/2021. Correlation is made with chest CT dated 10/28/2020. The examination is mildly degraded by portable technique and patient rotation. A 3-lead cardiac AICD is unchanged in position and partially obscures the left lung base. The heart is enlarged noting atherosclerotic calcification of the thoracic aorta. The pulmonary vasculature is noncongested. Chronic interstitial thickening is similar to previous. Mild scarring/atelectasis is noted at the lung bases. No airspace consolidation or large pleural effusion is identified. No pneumothorax is seen. The skeletal structures are osteopenic. The bony thorax is grossly intact. Advanced arthritic change is noted in the shoulders and thoracic spine. IMPRESSION: 1. Cardiomegaly and AICD. There is no radiographic evidence of congestive failure. 2. No airspace consolidation or large pleural effusion is identified. ACT 112: Negative or not required by law. Electronically signed by: Michael Scherer M.D. 05/13/2021 5:09 PM Discharge Plan Visit Data Chief Complaint: Nausea Stated Complaint: NAUSEA,VOMITING,FEVERS ED Provider: Timo Cole Discharge Problem: Gastroenteritis, Lymphopenia, Thrombocytopenia, Elevated AST (SGOT), Dehydration, Hypoxia Patient Disposition: Admitted As Inpatient Discharge Instructions Interventions: ED Discharge Assessment Last Done: 05/13/21 20:35 Forms Stand Alone Forms: My [employer] Prescriptions Prescriptions: No Action oxybutynin chloride 5 mg tablet extended release 24hr 5 mg PO HS Qty: 30 RF: 11 lisinopril 10 mg tablet 10 mg PO DAILY Qty: 90 RF: 3 levothyroxine 137 mcg tablet 137 mcg PO DAILY Qty: 90 RF: 3 cyanocobalamin (vitamin B-12) [Vitamin B-12] 1,000 mcg tablet 500 mcg PO QAM RF: 0 gabapentin 300 mg capsule 600 mg PO HS Qty: 60 RF: 5 alendronate 70 mg tablet 70 mg PO .COMPLEX Qty: 12 RF: 1 atorvastatin 40 mg tablet 40 mg PO HS Qty: 90 RF: 3 pantoprazole 40 mg tablet,delayed release (DR/EC) 40 mg PO QAM Qty: 30 RF: 11 ascorbic acid (vitamin C) 500 mg tablet 500 mg PO QAM RF: 0 nitrofurantoin monohyd/m-cryst [Macrobid] 100 mg capsule 100 mg PO BID 5 Days Qty: 10 RF: 0 ferrous sulfate [FeroSul] 325 mg (65 mg iron) tablet 325 mg PO QAM RF: 0 Centrum Silver Women 8 mg iron-400 mcg-300 mcg tablet 1 tab PO QAM RF: 0 aspirin [Adult Low Dose Aspirin] 81 mg tablet,delayed release (DR/EC) 81 mg PO QAM RF: 0 polyethylene glycol 3350 [Miralax] 17 gram Powder In Packet 17 g PO DAILY Qty: 30 RF: 0 cholecalciferol (vitamin D3) [Vitamin D3] 2,000 unit Tablet 2,000 unit PO QAM RF: 0 vitamin A 2,400 mcg capsule 2,400 mcg PO QAM RF: 0 vitamin E 100 unit capsule 100 unit PO QAM RF: 0 acetaminophen 500 mg tablet 1,000 mg PO TID PRN (Reason: Pain) RF: 0 glucosamine-chondroitin [Osteo Bi-Flex] 250-200 mg Tablet 2 tab PO TID RF: 0 Referrals Referrals: Rome Castellanos MD [Primary Care Provider] -
--- NOTE | 2021-05-13 19:00 | History & Physical Report ---
Date of Service May 13, 2021 Assessment & Plan (1) Weakness: Plan: Katty is an 86-year-old female with a past medical history of MGUS, osteoporosis, urinary retention, stress incontinence, compression fracture at T11, myasthenia gravis, hypertension, intraductal papillary mucinous neoplasm, cardiac pacemaker, IBS, GERD, diabetic peripheral neuropathy, carotid artery stenosis, hyperlipidemia, CKD, and osteoarthritis who presented to the emergency department with weakness, nausea, vomiting, diarrhea, and fevers. He is vaccinated against COVID-19, Covid test on admission was negative. Weakness with Nausea, diarrhea, chills, fatigue, differential includes yaz plasmosis versus viral gastroenteritis versus stercoral colitis Similar presentation 12/2020 with associated URI at the time Leukopenic to 4.6, platelets decreased at 127, AST elevated to 107, T bili 1.04 direct bili 0.4 Patient [place] area and sits outside on the porch frequently, has not noticed any tick bites Presentation and labs suspicious for potential anaplasmosis Empiric treatment doxycycline 100 mg twice daily Anaplasmosis smear negative, Lyme negative, anaplasmosis DNA pending Hospital admission 12/2020 with multiple home falls, compression fractures, and right 10th and sixth rib fracture PT/OT (2) Hypoxia: Plan: Acute hypoxia CXR: Cardiomegaly with AICD, no radiographic evidence of congestive failure, no airspace consolidation or pleural effusion appreciated Lungs grossly clear with moderate to poor air movement on exam No symptoms of pneumonia ? Mechanical effect with poor respiratory effort in the setting of acute illness, volume depletion, and constipation Treated with doxycycline for empiric coverage of tickborne illness at this time, follow clinically SPO2 greater than 90% goal No history of lung disease, asthma, COPD per patient (3) Monoclonal gammopathy of unknown significance (MGUS): (4) Myasthenia gravis, AChR antibody positive: Plan: Myasthenia gravis, antibody positive Antibody positive, patient denies knowledge of this illness or symptoms -Patient reports global fatigue, has not had difficulty swallowing, diplopia, vision change Follow clinically, no treatment at this time (5) S/P ICD (internal cardiac defibrillator) procedure: Plan: History of cardiac arrest with ICD Potassium goal 4, magnesium 2 Monitored on telemetry Discussed CODE STATUS with patient, she prefers DNR/DNI status with no CPR/intubation (6) Constipation: Plan: Constipation w/ history of colitis, fecal occult blood positive Patient with nonspecific colitis of the cecum, ascending, and transverse colon on prior hospital admission 01/10. Noted to have had colitis from impacted stool prior to that time. Not anemic, suspected related to colitis in the past without signs of GI bleed and stable hemoglobin CTabdomen today shows there is rectosigmoid fecal impaction and moderate constipation, mild wall thickening is seen in the rectum, No bowel obstruction is identified, Colonic diverticulosis without CT evidence of acute diverticulitis. MiraLAX twice daily, consider enema if nominimal bowel movement with MiraLAX and hydration (7) Stress incontinence: Plan: Stress and urge incontinence Oxybutynin 5 mg p.o. daily (8) Hypertension, essential: Plan: Hypertension Lisinopril daily (9) Hypothyroidism: Plan: Hypothyroidism Continue Synthroid 150 mcg p.o. daily TSH unlikely to be accurate in setting of acute illness, levels have been intermittently normal/low in the past. Recommend rechecking following convalescence Plan: DVT prophylaxis SCDs Defer pharmacal prophylaxis in the setting of high fall risk Disposition: Medical/telemetry CODE STATUS: DNR/DNI Diet: Regular History of Present Illness Chief Complaint: Fatigue Primary Care Provider: Adriano Castellanos MD Katty is an 86-year-old female with a past medical history of MGUS, osteoporosis, urinary retention, stress incontinence, compression fracture at T11, myasthenia gravis, hypertension, intraductal papillary mucinous neoplasm, cardiac pacemaker, IBS, GERD, diabetic peripheral neuropathy, carotid artery stenosis, hyperlipidemia, CKD, and osteoarthritis who presented to the emergency department with weakness, nausea, vomiting, diarrhea, and fevers. He is vaccinated against COVID-19, Covid test on admission was negative. Patient is newly lymphopenic with thrombocytopenia and transaminitis raising suspicion for anaplasmosis. Lyme screen negative. "I just got awful sick" about 3 days ago. Was up all night last night. Having n ight sweats, not sure if fevers. Endorses svere fatigue and 'just feeling wiped out and wanting to lay down.' +nausea. - vomiting. Diarrhea overnight every 15 minutes, which then improved this morning. BMs were dark/black, normally black and has been for 'a while, since taking iron but with a small bowel movement every day' Has an indoor cat no other pets. [place], does not garden. No tick bites to her knowledge. Denies chest pain, chest pressure, shortness of breath, difficulty breathing. Medical History: Reviewed Surgical History: Reviewed Family History: Reviewed Allergies: Reviewed Social History: Lives at home with her . Denies tobacco/alcohol use. CODE STATUS: DNR/DNI, discussed with patient Allergies Allergy/AdvReac Type Severity Reaction Status Date / Time celecoxib Allergy Severe SX OF Verified 05/13/21 15:41 STROKE, FACIAL NUMBNESS, UNABLE TO SPEAK fesoterodine [From Toviaz] Allergy Unknown Unknown Verified 05/13/21 15:41 solifenacin [From Vesicare] Allergy Unknown Unknown Verified 05/13/21 15:41 morphine AdvReac Intermediate Confusion Verified 05/13/21 15:41 ciprofloxacin AdvReac Mild UPSET Verified 05/13/21 15:41 STOMACH metronidazole AdvReac Mild N/V Verified 05/13/21 15:41 Home Medications Medication Instructions Recorded Confirmed Type cholecalciferol (vitamin D3) 50 2,000 unit PO QAM 08/05/18 05/13/21 History mcg (2,000 unit) tablet (Vitamin D3) ascorbic acid (vitamin C) 500 mg 500 mg PO QAM tab 02/26/19 05/13/21 History tablet aspirin 81 mg tablet,delayed 81 mg PO QAM 08/21/20 05/13/21 History release (Adult Low Dose Aspirin) ferrous sulfate 325 mg (65 mg 325 mg PO QAM 08/21/20 05/13/21 History iron) tablet (FeroSul) multivit with 1 tab PO QAM 08/21/20 05/13/21 History ajcrsqkv-lfra-GY-lutein 8 mg iron-400 mcg-300 mcg tablet (Centrum Silver Women) oxybutynin chloride 5 mg 5 mg PO HS #30 tab 09/05/20 05/13/21 Rx tablet,extended release 24 hr polyethylene glycol 3350 17 gram 17 g PO DAILY #30 ea 11/30/20 05/13/21 Rx oral powder packet (Miralax) acetaminophen 500 mg tablet 1,000 mg PO TID PRN 01/15/21 05/13/21 History vitamin A 2,400 mcg capsule 2,400 mcg PO QAM cap 01/23/21 05/13/21 History vitamin E 100 unit capsule 100 unit PO QAM cap 01/23/21 05/13/21 History lisinopril 10 mg tablet 10 mg PO DAILY #90 tab 03/21/21 05/13/21 Rx cyanocobalamin (vitamin B-12) 500 mcg PO QAM tab 03/26/21 05/13/21 History 1,000 mcg tablet (Vitamin B-12) levothyroxine 137 mcg tablet 137 mcg PO DAILY #90 tab 03/26/21 05/13/21 Rx gabapentin 300 mg capsule 600 mg PO HS #60 cap 04/23/21 05/13/21 Rx alendronate 70 mg tablet 70 mg PO .COMPLEX #12 tab 04/25/21 05/13/21 Rx atorvastatin 40 mg tablet 40 mg PO HS #90 tab 04/30/21 05/13/21 Rx pantoprazole 40 mg tablet,delayed 40 mg PO QAM #30 tab 05/07/21 05/13/21 Rx release nitrofurantoin 100 mg PO BID 5 Days #10 cap 05/12/21 05/13/21 Rx monohydrate/macrocrystals 100 mg capsule (Macrobid) glucosamine-chondroitin 250 mg-200 2 tab PO TID 05/13/21 05/13/21 History mg tablet (Osteo Bi-Flex) Past Med/Surg History Medical History Acute back pain Acute UTI Anemia Cardiac defibrillator in place Cardiomyopathy Carotid artery stenosis Chronic pancreatitis CKD (chronic kidney disease) stage 3, GFR 30-59 ml/min Colitis Degenerative joint disease (DJD) of hip Diabetes mellitus, type 2 Diabetic nephropathy Diabetic peripheral neuropathy Diverticulitis Diverticulosis of colon Duodenal ulcer Fall Fall GERD (gastroesophageal reflux disease) GERD without esophagitis HLD (hyperlipidemia) HTN (hypertension), benign Hypercholesterolemia Hypothyroid IBS (irritable bowel syndrome) ICD (implantable cardioverter-defibrillator) battery depletion Insomnia Lumbar canal stenosis Lumbar spondylosis Nocturia Nonischemic cardiomyopathy Osteoarthritis Osteoporosis Presence of cardiac pacemaker Pulmonary nodule Rib fracture 09/17/18 R/T FALL. D/C'D TO [facility]. Scaphoid fracture of wrist Urge incontinence of urine Vitamin D deficiency, unspecified Surgical History History of cardiac cath PER PT, 5-10 YEARS AGO AT [facility] - REASON? - NO STENTS/ANGIOPLASTY History of cholecystectomy History of colonoscopy History of ERCP w/ sphincterotomy & CBD stent History of esophagogastroduodenoscopy (EGD) History of vertebroplasty T12 S/P appendectomy S/P hysterectomy S/P ICD (internal cardiac defibrillator) procedure Biventricular AICD placed in 2007, Generator Change-out 02/15/2020 -- now has a Medtronic Subarctic Limitedia MRI BIOMEDICAL EQUIPMENT SUPPORT SPECIALIST-D Bi-V AICD. S/P kyphoplasty S/P partial colectomy S/P rotator cuff surgery Family History Son Diabetes Sister Breast cancer Denies family history of Ovarian cancer Prostate cancer Hearing loss Coronary heart disease No family history of adverse response to anesthesia No family history of bleeding disorder Heart disease Allergies Myocardial infarction Colorectal cancer Cancer Hypertension Stroke Asthma Social History Smoking Status: Never smoker Second Hand Exposure: No; Hx Alcohol Use: No Hx Substance Use: No Preferred Language: Malay Communication Ability: Effective Visual Impairment: No Limitations Hearing Ability: Normal Sports Book Writer Required: No Beliefs That Will Affect Care: None marital status: Current Living Situation: Parent current occupational status: retired current occupation: retired from career with [employer] How many Children do You have: 4 Feels Safe at Home: Yes Childhood Exposure to Second-Hand Smoke: No caffeine: Yes Dental Care, Regularly: No Physical Activity Frequency: Does not Exercise Seatbelt Use: always Sunscreen Use: No Assistive Devices: Cane and Walker Review of Systems Review of Systems: Constitutional: See HPI Eyes: Denies vision change ENT: Denies ear pain, sore throat, sinus pain Cardiovascular: Denies Chest pain, chest pressure, palpitations, extremity swelling Respiratory: Denies shortness of breath, cough, sputum production, difficulty breathing Gastrointestinal: See HPI Genitourinary: Denies dysuria, urinary frequency Musculoskeletal: See HPI Integumentary:Denies acute rash, lesions, bruising Neurological: Denies headache, numbness, tingling, acute focal weakness Physical Exam Physical Exam: General: A&Ox3. Appears frail. No acute distress. HEENT: Atraumatic, normocephalic. Dual acuity and hearing grossly intact. Pulm: Moderate air movement, grossly CTAB A&P. -wheezes, -rales, -rhonchi. Symmetrical chest rise. No increase work of breathing. No respiratory distress. Cardiac: RRR, -mrg. Radial pulses intact and symmetrical. Abdominal: Nontender, nondistended, soft. BS present. Extremities, warm, dry. Moves all extremities equally. Technical Program Manager strength, ankle dorsiflexion and plantar flexion 4/5 bilaterally without asymmetry. Pain in shoulders bilaterally on flexion, no overlying crepitus/deformity. Results & Data Results & Data ([facility]) Vital Signs (Past 12 Hours) Vital Signs Temp Pulse Pulse Resp BP BP Pulse Ox 05/13/21 17:00 70 18 147/82 H 97 05/13/21 15:27 75 26 H 157/92 H 95 05/13/21 13:37 36.7 C 105 H 20 137/85 94 05/13/21 13:27 99 H 30 H 157/92 H 99 PG Care Time/CCT Total # of Minutes Spent Total Time Spent with Patient: Total time spent is greater than 50% in coordination of care (as documented) at patient's floor/unit and/or counseling patient: Coding Level of Care Code 55510 Initial Inpt Care Lvl 3 Diagnoses Weakness R53.1 Hypoxia R09.02 Monoclonal gammopathy of unknown significance (MGUS) D47.2 Myasthenia gravis, AChR antibody positive G70.00 S/P ICD (internal cardiac defibrillator) procedure Z95.810 Constipation K59.00 Stress incontinence N39.3 Hypertension, essential I10 Hypothyroidism E03.9
[2021-05-13 19:12] LABS: Appearance Urine Clear (Clear); Bacteria Urine Automated Negative (Negative); Bilirubin Urine Negative (Negative); Blood Urine Trace (Negative); Color Urine Dark Yellow; Epithelial Cell Urine Auto >30 /lpf (0-5); Glucose Urine UA Negative (Negative); Ketones Urine Negative (Negative); Leukocyte Esterase Urine Negative (Negative); Nitrite Urine Negative (Negative); Protein Urine 2+ (Negative); Specific Gravity Urine > 1.045 (1.000-1.030); Urobilinogen Urine Negative (Negative)
[2021-05-13] MEDS ORDERED: ONDANSETRON INJ 2 MG/ML 2 ML VIAL IV PRN (19:43)
[2021-05-13] MEDS ORDERED: NON-FORMULARY MEDICATION (Glucosamine-Chondroitin [Osteo Bi-Flex] 250-200 mg Tablet) PO SCH (21:20)
[2021-05-13] MEDS ORDERED: ACETAMINOPHEN 500 MG TAB PO PRN (21:30)
[2021-05-13] MEDS: NSS + 20MEQ KCL 20 MEQ/1,000 ML BAG IV SCH (21:56)
[2021-05-13] MEDS: GABAPENTIN 300 MG CAP PO SCH (21:57)
[2021-05-13] MEDS: FAMOTIDINE 20 MG in SYRINGE 3 ML IV SCH (21:57)
[2021-05-13] MEDS: ATORVASTATIN 40 MG TAB PO SCH (21:57)
[2021-05-13] MEDS: POLYETHYLENE (MIRALAX) 17 GM PACK PO SCH (21:58)
[2021-05-13] MEDS: OXYBUTYNIN CHLORIDE XL 5 MG TABCR PO SCH (21:58)
[2021-05-13] MEDS: NITROFURANTOIN MONOHYDRATE 100 MG CAP PO SCH (22:22)
[2021-05-14] MEDS: LEVOTHYROXINE SODIUM 137 MCG TABLET PO SCH (06:08)
[2021-05-14] MEDS: ASCORBIC ACID 500 MG TAB PO SCH (08:38)
[2021-05-14] MEDS: lisinopril 10 MG TAB PO SCH (08:39)
[2021-05-14] MEDS: PANTOprazole 40 MG TAB PO SCH (08:39)
[2021-05-14] MEDS: NITROFURANTOIN MONOHYDRATE 100 MG CAP PO SCH ×2 (08:39→17:17)
[2021-05-14] MEDS: ASPIRIN 81 MG ECTAB PO SCH (08:39)
[2021-05-14] MEDS: DOXYCYCLINE HYCLATE 100 MG in DEXTROSE 5% 100 ML IV SCH ×2 (08:40→20:22)
[2021-05-14] MEDS: FAMOTIDINE 20 MG in SYRINGE 3 ML IV SCH ×2 (08:40→20:23)
[2021-05-14] MEDS: NSS + 20MEQ KCL 20 MEQ/1,000 ML BAG IV SCH ×2 (08:40→20:21)
[2021-05-14 08:58] LABS: Hematocrit (blood only) 43.9 % (37-47); Hemoglobin 14.4 g/dL (12.0-16.0); Mean Corpuscular Hemoglobin 33.3 pg (25-34); Mean Corpuscular Hgb Conc 32.8 g/dL (32-36); Mean Corpuscular Volume 101.6 fL (80-100); RDW Coefficient of Variation 13.4 % (11.5-14.5); RDW Standard Deviation 50.7 fL (36.4-46.3); Red Blood Count 4.32 M/uL (4.2-5.4); White Blood Count 3.12 K/uL (4.8-10.8)
[2021-05-14 09:17] LABS: Basophils # (auto) 0.02 K/uL (0-0.2); Basophils % (auto) 0.6 %; Immature Granulocytes # (auto) 0.01 K/uL (0.00-0.02); Immature Granulocytes % (auto) 0.3 %; Lymphocytes # (auto) 0.59 K/uL (1.2-3.4); Lymphocytes % (auto) 18.9 %; Mean Platelet Volume 10.7 fL (7.4-10.4); Monocytes # (auto) 0.22 K/uL (0.11-0.59); Monocytes % (auto) 7.1 %; Neutrophils # (auto) 2.28 K/uL (1.4-6.5); Neutrophils % (auto) 73.1 %; Platelet Count 92 K/uL (130-400); Platelet Estimate Decreased (Normal)
[2021-05-14 09:30] LABS: Albumin Level 2.8 gm/dl (3.4-5.0); BUN Creatinine Ratio 19.3 (10-20); Calcium 8.1 mg/dl (8.5-10.1); Creatinine Clr Calc Pharmacy 34.2 ml/min; Est GFR (African American) 62.8 ml/min; Est GFR (Non-African American) 54.2 ml/min; Potassium 3.8 mmol/L (3.5-5.1)
[2021-05-14 09:38] LABS: Albumin Globulin Ratio 0.9 (0.9-2); Bilirubin,Total 1.4 mg/dl (0.2-1); Globulin 3.2 gm/dl (2.5-4.0)
[2021-05-14] MEDS: POLYETHYLENE (MIRALAX) 17 GM PACK PO SCH ×2 (10:49→20:31)
[2021-05-14] MEDS ORDERED: ACETAMINOPHEN 325 MG TAB PO ONE (15:32)
[2021-05-14] MEDS: ATORVASTATIN 40 MG TAB PO SCH (20:30)
[2021-05-14] MEDS: OXYBUTYNIN CHLORIDE XL 5 MG TABCR PO SCH (20:31)
[2021-05-14] MEDS: GABAPENTIN 300 MG CAP PO SCH (20:31)
--- NOTE | 2021-05-14 21:00 | Hospitalist Progress Note ---
Date of Service May 14, 2021 Assessment & Plan (1) Weakness: Plan: Katty is an 86-year-old female with a past medical history of MGUS, osteoporosis, urinary retention, stress incontinence, compression fracture at T11, myasthenia gravis, hypertension, intraductal papillary mucinous neoplasm, cardiac pacemaker, IBS, GERD, diabetic peripheral neuropathy, carotid artery stenosis, hyperlipidemia, CKD, and osteoarthritis who presented to the emergency department with weakness, nausea, vomiting, diarrhea, and fevers. He is vaccinated against COVID-19, Covid test on admission was negative. Weakness with Nausea, diarrhea, chills, fatigue, differential includes yaz plasmosis versus viral gastroenteritis versus stercoral colitis Similar presentation 12/2020 with associated URI at the time Patient reports [place] area and sits outside on the porch frequently, has not noticed any tick bites Presentation and labs suspicious for potential anaplasmosis Empiric treatment doxycycline 100 mg twice daily Anaplasmosis smear negative, Lyme negative, anaplasmosis DNA remains pending Hospital admission 12/2020 with multiple home falls, compression fractures, and right 10th and sixth rib fracture PT/OT (2) Hypoxia: Plan: Acute hypoxia CXR: Cardiomegaly with AICD, no radiographic evidence of congestive failure, no airspace consolidation or pleural effusion appreciated Lungs grossly clear with moderate to poor air movement on exam No symptoms of pneumonia ? Mechanical effect with poor respiratory effort in the setting of acute illness, volume depletion, and constipation Treated with doxycycline for empiric coverage of tickborne illness at this time, follow clinically SPO2 greater than 90% goal No history of lung disease, asthma, COPD per patient (3) Monoclonal gammopathy of unknown significance (MGUS): (4) Myasthenia gravis, AChR antibody positive: Plan: Myasthenia gravis, antibody positive Antibody positive, patient denies knowledge of this illness or symptoms -Patient reports global fatigue, has not had difficulty swallowing, diplopia, vision change Follow clinically, no treatment at this time (5) S/P ICD (internal cardiac defibrillator) procedure: Plan: History of cardiac arrest with ICD Potassium goal 4, magnesium 2 Monitored on telemetry Discussed CODE STATUS with patient, she prefers DNR/DNI status with no CPR/intubation (6) Constipation: Plan: Constipation w/ history of colitis, fecal occult blood positive Patient with nonspecific colitis of the cecum, ascending, and transverse colon on prior hospital admission 01/10. Noted to have had colitis from impacted stool prior to that time. Not anemic, suspected related to colitis in the past without signs of GI bleed and stable hemoglobin CTabdomen today shows there is rectosigmoid fecal impaction and moderate constipation, mild wall thickening is seen in the rectum, No bowel obstruction is identified, Colonic diverticulosis without CT evidence of acute diverticulit is. MiraLAX twice daily, consider enema if nominimal bowel movement with MiraLAX and hydration (7) Stress incontinence: Plan: Stress and urge incontinence Oxybutynin 5 mg p.o. daily (8) Hypertension, essential: Plan: Hypertension Lisinopril daily (9) Hypothyroidism: Plan: Hypothyroidism Continue Synthroid 150 mcg p.o. daily TSH unlikely to be accurate in setting of acute illness, levels have been intermittently normal/low in the past. Recommend rechecking following convalescence Plan: DVT prophylaxis SCDs Defer pharmacal prophylaxis in the setting of high fall risk Disposition: Medical/telemetry CODE STATUS: DNR/DNI Diet: Regular Admission and Anticipated Discharge Date Admission Date: May 13, 2021 Subjective Patient reports no significant improvement from yesterday. Review of Systems Review of Systems: Constitutional: See HPI Eyes: Denies vision change ENT: Denies ear pain, sore throat, sinus pain Cardiovascular: Denies Chest pain, chest pressure, palpitations, extremity swelling Respiratory: Denies shortness of breath, cough, sputum production, difficulty breathing Gastrointestinal: See HPI Genitourinary: Denies dysuria, urinary frequency Musculoskeletal: See HPI Integumentary:Denies acute rash, lesions, bruising Neurological: Denies headache, numbness, tingling, acute focal weakness Physical Exam Physical Exam: General: A&Ox3. Appears frail. No acute distress. HEENT: Atraumatic, normocephalic. Dual acuity and hearing grossly intact. Pulm: Moderate air movement, grossly CTAB A&P. -wheezes, -rales, -rhonchi. Symmetrical chest rise. No increase work of breathing. No respiratory distress. Cardiac: RRR, -mrg. Radial pulses intact and symmetrical. Abdominal: Nontender, nondistended, soft. BS present. Extremities, warm, dry. Moves all extremities equally. General Claims Agent strength, ankle dorsiflexion and plantar flexion 4/5 bilaterally without asymmetry. Pain in shoulders bilaterally on flexion, no overlying crepitus/deformity. Results & Data Results & Data ([facility]) Vital Signs (Past 12 Hours) Vital Signs Temp Pulse Pulse Pulse Resp BP BP 05/14/21 19:25 37.1 C 74 20 160/94 H 05/14/21 16:04 36.6 C 76 20 123/77 05/14/21 15:43 77 05/14/21 11:17 37.2 C 81 16 127/64 Pulse Ox 05/14/21 19:25 92 05/14/21 16:04 92 05/14/21 15:43 05/14/21 11:17 92 PG Care Time/CCT Total # of Minutes Spent Total Time Spent with Patient: Total time spent is greater than 50% in coordination of care (as documented) at patient's floor/unit and/or counseling patient: Coding Level of Care Code 13818 Subseq Hosp Care Lvl 2 Diagnoses Weakness R53.1 Hypoxia R09.02 Monoclonal gammopathy of unknown significance (MGUS) D47.2 Myasthenia gravis, AChR antibody positive G70.00 S/P ICD (internal cardiac defibrillator) procedure Z95.810 Constipation K59.00 Stress incontinence N39.3 Hypertension, essential I10 Hypothyroidism E03.9 Time Spent (min) 25 Comment updated
[2021-05-15] MEDS: NSS + 20MEQ KCL 20 MEQ/1,000 ML BAG IV SCH ×2 (06:00→16:22)
[2021-05-15] MEDS: LEVOTHYROXINE SODIUM 137 MCG TABLET PO SCH (06:01)
[2021-05-15 07:25] LABS: Hemoglobin 13.2 g/dL (12.0-16.0); Mean Corpuscular Hemoglobin 33.2 pg (25-34); Mean Corpuscular Volume 100.5 fL (80-100); RDW Coefficient of Variation 13.4 % (11.5-14.5); RDW Standard Deviation 49.1 fL (36.4-46.3); Red Blood Count 3.98 M/uL (4.2-5.4); White Blood Count 3.46 K/uL (4.8-10.8)
[2021-05-15 07:32] LABS: Platelet Count 92 K/uL (130-400)
[2021-05-15 07:49] LABS: Basophils # (auto) 0.03 K/uL (0-0.2); Basophils % (auto) 0.9 %; Echinocytes 1+; Eosinophils # (auto) 0.22 K/uL (0-0.5); Eosinophils % (auto) 6.4 %; Lymphocytes # (auto) 1.21 K/uL (1.2-3.4); Monocytes # (auto) 0.53 K/uL (0.11-0.59); Monocytes % (auto) 15.3 %; Neutrophils # (auto) 1.47 K/uL (1.4-6.5); Neutrophils % (auto) 42.4 %; Platelet Estimate Decreased (Normal)
[2021-05-15 08:07] LABS: Albumin Globulin Ratio 0.8 (0.9-2); Albumin Level 2.4 gm/dl (3.4-5.0); BUN Creatinine Ratio 26.6 (10-20); Bilirubin,Total 1.1 mg/dl (0.2-1); Calcium 7.8 mg/dl (8.5-10.1); Creatinine Clr Calc Pharmacy 44.7 ml/min; Est GFR (African American) 86.7 ml/min; Est GFR (Non-African American) 74.8 ml/min; Globulin 2.9 gm/dl (2.5-4.0); Potassium 4.4 mmol/L (3.5-5.1); Total Protein 5.3 gm/dl (6.4-8.2)
[2021-05-15] MEDS: DOXYCYCLINE HYCLATE 100 MG in DEXTROSE 5% 100 ML IV SCH ×2 (08:49→20:14)
[2021-05-15] MEDS: FAMOTIDINE 20 MG in SYRINGE 3 ML IV SCH ×2 (08:50→20:14)
[2021-05-15] MEDS: ASCORBIC ACID 500 MG TAB PO SCH (08:50)
[2021-05-15] MEDS: PANTOprazole 40 MG TAB PO SCH (08:50)
[2021-05-15] MEDS: ASPIRIN 81 MG ECTAB PO SCH (08:50)
[2021-05-15] MEDS: lisinopril 10 MG TAB PO SCH (08:50)
[2021-05-15] MEDS: NITROFURANTOIN MONOHYDRATE 100 MG CAP PO SCH ×2 (08:51→16:24)
[2021-05-15] MEDS: POLYETHYLENE (MIRALAX) 17 GM PACK PO SCH ×2 (08:51→20:15)
[2021-05-15] MEDS: GABAPENTIN 300 MG CAP PO SCH (20:14)
[2021-05-15] MEDS: OXYBUTYNIN CHLORIDE XL 5 MG TABCR PO SCH (20:15)
[2021-05-15] MEDS: ATORVASTATIN 40 MG TAB PO SCH (20:15)
--- NOTE | 2021-05-15 20:59 | Hospitalist Progress Note ---
Date of Service May 15, 2021 Assessment & Plan (1) Weakness: Plan: Katty is an 86-year-old female with a past medical history of MGUS, osteoporosis, urinary retention, stress incontinence, compression fracture at T11, myasthenia gravis, hypertension, intraductal papillary mucinous neoplasm, cardiac pacemaker, IBS, GERD, diabetic peripheral neuropathy, carotid artery stenosis, hyperlipidemia, CKD, and osteoarthritis who presented to the emergency department with weakness, nausea, vomiting, diarrhea, and fevers. He is vaccinated against COVID-19, Covid test on admission was negative. Weakness with Nausea, diarrhea, chills, fatigue, differential includes yaz plasmosis versus viral gastroenteritis versus stercoral colitis Similar presentation 12/2020 with associated URI at the time Patient [place] and sits outside on the porch frequently, has not noticed any tick bites Presentation and labs suspicious for potential anaplasmosis Empiric treatment doxycycline 100 mg twice daily Anaplasmosis smear negative, Lyme negative, anaplasmosis DNA remains pending Hospital admission 12/2020 with multiple home falls, compression fractures, and right 10th and sixth rib fracture PT/OT On 05/15 Patient reports feeling better. She has no new complaints. Unsure if this was a virus or if anaplasmosis. will continue to monitor. If she continues on this path, will likely be discharged tomorrow. (2) Hypoxia: Plan: Acute hypoxia CXR: Cardiomegaly with AICD, no radiographic evidence of congestive failure, no airspace consolidation or pleural effusion appreciated Lungs grossly clear with moderate to poor air movement on exam No symptoms of pneumonia ? Mechanical effect with poor respiratory effort in the setting of acute illness, volume depletion, and constipation Treated with doxycycline for empiric coverage of tickborne illness at this time, follow clinically SPO2 greater than 90% goal No history of lung disease, asthma, COPD per patient -currently on room air. (3) Monoclonal gammopathy of unknown significance (MGUS): (4) Myasthenia gravis, AChR antibody positive: Plan: Myasthenia gravis, antibody positive Antibody positive, patient denies knowledge of this illness or symptoms -Patient reports global fatigue, has not had difficulty swallowing, diplopia, vision change Follow clinically, no treatment at this time (5) S/P ICD (internal cardiac defibrillator) procedure: Plan: History of cardiac arrest with ICD Potassium goal 4, magnesium 2 Monitored on telemetry Discussed CODE STATUS with patient, she prefers DNR/DNI status with no CPR/intubation (6) Constipation: Plan: Constipation w/ history of colitis, fecal occult blood positive Patient with nonspecific colitis of the cecum, ascending, and transverse colon on prior hospital admission 01/10. Noted to have had colitis from impacted stool prior to that time. Not anemic, suspected related to colitis in the past without signs of GI bleed and stable hemoglobin CTabdomen today shows there is rectosigmoid fecal impaction and moderate constipation, mild wall thickening is seen in the rectum, No bowel obstruction is identified, Colonic diverticulosis without CT evidence of acute diverticulitis. MiraLAX twice daily, consider enema if nominimal bowel movement with MiraLAX and hydration (7) Stress incontinence: Plan: Stress and urge incontinence Oxybutynin 5 mg p.o. daily (8) Hypertension, essential: Plan: Hypertension Lisinopril daily (9) Hypothyroidism: Plan: Hypothyroidism Continue Synthroid 150 mcg p.o. daily TSH unlikely to be accurate in setting of acute illness, levels have been intermittently normal/low in the past. Recommend rechecking following convalescence Plan: DVT prophylaxis SCDs Defer pharmacal prophylaxis in the setting of high fall risk Disposition: Medical/telemetry CODE STATUS: DNR/DNI Diet: Regular Admission and Anticipated Discharge Date Admission Date: May 13, 2021 Subjective Patient is feeling signifcantly better today. Still weaker than usual, but able to sit up at the chair at bedside. Review of Systems Review of Systems: All systems reviewed & are unremarkable except as noted in HPI & below Physical Exam Physical Exam: General: A&Ox3. . No acute distress. HEENT: Atraumatic, normocephalic. Dual acuity and hearing grossly intact. Pulm: Moderate air movement, grossly CTAB A&P. -wheezes, -rales, -rhonchi. Symmetrical chest rise. No increase work of breathing. No respiratory distress. Cardiac: RRR, -mrg. Radial pulses intact and symmetrical. Abdominal: Nontender, nondistended, soft. BS present. Extremities, warm, dry. Moves all extremities equally. Rollout Manager strength, ankle dorsiflexion and plantar flexion 4/5 bilaterally without asymmetry. Pain in shoulders bilaterally on flexion, no overlying crepitus/deformity. Results & Data Results & Data ([facility]) Vital Signs (Past 12 Hours) Vital Signs Temp Pulse Pulse Resp BP BP Pulse Ox 05/15/21 19:13 36.5 C 84 20 146/72 H 90 05/15/21 15:14 74 05/15/21 14:29 36.4 C L 76 20 128/80 92 05/15/21 12:55 36.0 C L 72 20 137/87 95 PG Care Time/CCT Total # of Minutes Spent Total Time Spent with Patient: Total time spent is greater than 50% in coordination of care (as documented) at patient's floor/unit and/or counseling patient: Coding Level of Care Code 62866 Subseq Hosp Care Lvl 2 Diagnoses Weakness R53.1 Hypoxia R09.02 Monoclonal gammopathy of unknown significance (MGUS) D47.2 Myasthenia gravis, AChR antibody positive G70.00 S/P ICD (internal cardiac defibrillator) procedure Z95.810 Constipation K59.00 Stress incontinence N39.3 Hypertension, essential I10 Hypothyroidism E03.9 Time Spent (min) 25
[2021-05-16] MEDS ORDERED: Nursing to Pharmacy Communication SCH (01:00)
[2021-05-16] MEDS: NSS + 20MEQ KCL 20 MEQ/1,000 ML BAG IV SCH (02:30)
[2021-05-16] MEDS: LEVOTHYROXINE SODIUM 137 MCG TABLET PO SCH (05:30)
[2021-05-16] MEDS: DOXYCYCLINE HYCLATE 100 MG in DEXTROSE 5% 100 ML IV SCH (09:50)
[2021-05-16] MEDS: NITROFURANTOIN MONOHYDRATE 100 MG CAP PO SCH (09:51)
[2021-05-16] MEDS: ASCORBIC ACID 500 MG TAB PO SCH (09:52)
[2021-05-16] MEDS: lisinopril 10 MG TAB PO SCH (09:52)
[2021-05-16] MEDS: ASPIRIN 81 MG ECTAB PO SCH (09:52)
[2021-05-16] MEDS: PANTOprazole 40 MG TAB PO SCH (09:53)
[2021-05-16] MEDS: POLYETHYLENE (MIRALAX) 17 GM PACK PO SCH (09:54)
--- NOTE | 2021-05-18 07:14 | Discharge Summary ---
Date of Service May 16, 2021 Admission HPI Per Admitting Provider Katty is an 86-year-old female with a past medical history of MGUS, osteoporosis, urinary retention, stress incontinence, compression fracture at T11, myasthenia gravis, hypertension, intraductal papillary mucinous neoplasm, cardiac pacemaker, IBS, GERD, diabetic peripheral neuropathy, carotid artery stenosis, hyperlipidemia, CKD, and osteoarthritis who presented to the emergency department with weakness, nausea, vomiting, diarrhea, and fevers. He is vaccinated against COVID-19, Covid test on admission was negative. Patient is newly lymphopenic with thrombocytopenia and transaminitis raising suspicion for anaplasmosis. Lyme screen negative. "I just got awful sick" about 3 days ago. Was up all night last night. Having night sweats, not sure if fevers. Endorses svere fatigue and 'just feeling wiped out and wanting to lay down.' +nausea. - vomiting. Diarrhea overnight every 15 minutes, which then improved this morning. BMs were dark/black, normally black and has been for 'a while, since taking iron but with a small bowel movement every day' Has an indoor cat no other pets. [place], does not garden. No tick bites to her knowledge. Denies chest pain, chest pressure, shortness of breath, difficulty breathing. Medical History: Reviewed Surgical History: Reviewed Family History: Reviewed Allergies: Reviewed Social History: Lives at home with her . Denies tobacco/alcohol use. CODE STATUS: DNR/DNI, discussed with patient Principal Diagnosis Weakness Discharge Exam General: A&Ox3. . No acute distress. HEENT: Atraumatic, normocephalic. Pulm: Moderate air movement, grossly CTAB A&P. No respiratory distress. Cardiac: RRR, -mrg. Radial pulses intact and symmetrical. Abdominal: Nontender, nondistended, soft. BS present. Extremities, warm, dry. Moves all extremities equally. Discharge Data Allergies Allergy/AdvReac Type Severity Reaction Status Date / Time celecoxib Allergy Severe SX OF Verified 05/13/21 15:41 STROKE, FACIAL NUMBNESS, UNABLE TO SPEAK fesoterodine [From Toviaz] Allergy Unknown Unknown Verified 05/13/21 15:41 solifenacin [From Vesicare] Allergy Unknown Unknown Verified 05/13/21 15:41 morphine AdvReac Intermediate Confusion Verified 05/13/21 15:41 ciprofloxacin AdvReac Mild UPSET Verified 05/13/21 15:41 STOMACH metronidazole AdvReac Mild N/V Verified 05/13/21 15:41 Consultations 05/13/21 17:38 ED Decision to Admit Stat Ordered Studies 05/13/21 14:11 CT abd pelvis IV con only Stat Hospital Course (1) Weakness: Katty is an 86-year-old female with a past medical history of MGUS, osteoporosis, urinary retention, stress incontinence, compression fracture at T11, myasthenia gravis, hypertension, intraductal papillary mucinous neoplasm, cardiac pacemaker, IBS, GERD, diabetic peripheral neuropathy, carotid artery stenosis, hyperlipidemia, CKD, and osteoarthritis who presented to the emergency department with weakness, nausea, vomiting, diarrhea, and fevers. He is vaccinated against COVID-19, Covid test on admission was negative. Weakness with Nausea, diarrhea, chills, fatigue, differential includes anaplasmosis versus viral gastroenteritis versus stercoral colitis Similar presentation 12/2020 with associated URI at the time Patient reports [place] area and sits outside on the porch frequently, has not noticed any tick bites Presentation and labs suspicious for potential anaplasmosis Empiric treatment doxycycline 100 mg twice daily Anaplasmosis smear negative, Lyme negative, anaplasmosis DNA remains pending Hospital admission 12/2020 with multiple home falls, compression fractures, and right 10th and sixth rib fracture PT/OT On 05/15 Patient reports feeling better. She has no new complaints. Unsure if this was a virus or if anaplasmosis. will continue to monitor. If she continues on this trend, will likely be discharged tomorrow. On 05/16 Patient continued to improve and did well. Likely viral illness. Will empirically treat for anaplasmosis for now. (2) Hypoxia: Acute hypoxia CXR: Cardiomegaly with AICD, no radiographic evidence of congestive failure, no airspace consolidation or pleural effusion appreciated Lungs grossly clear with moderate to poor air movement on exam No symptoms of pneumonia ? Mechanical effect with poor respiratory effort in the setting of acute illness, volume depletion, and constipation Treated with doxycycline for empiric coverage of tickborne illness at this time, follow clinically SPO2 greater than 90% goal No history of lung disease, asthma, COPD per patient -currently on room air. (3) Monoclonal gammopathy of unknown significance (MGUS): (4) Myasthenia gravis, AChR antibody positive: Myasthenia gravis, antibody positive Antibody positive, patient denies knowledge of this illness or symptoms -Patient reports global fatigue, has not had difficulty swallowing, diplopia, vision change Follow clinically, no treatment at this time (5) S/P ICD (internal cardiac defibrillator) procedure: History of cardiac arrest with ICD Potassium goal 4, magnesium 2 Monitored on telemetry Discussed CODE STATUS with patient, she prefers DNR/DNI status with no CPR/intubation (6) Constipation: Constipation w/ history of colitis, fecal occult blood positive Patient with nonspecific colitis of the cecum, ascending, and transverse colon on prior hospital admission 01/10. Noted to have had colitis from impacted stool prior to that time. Not anemic, suspected related to colitis in the past without signs of GI bleed and stable hemoglobin CTabdomen today shows there is rectosigmoid fecal impaction and moderate constipation, mild wall thickening is seen in the rectum, No bowel obstruction is identified, Colonic diverticulosis without CT evidence of acute diverticulitis. MiraLAX twice daily, consider enema if nominimal bowel movement with MiraLAX and hydration (7) Stress incontinence: Stress and urge incontinence Oxybutynin 5 mg p.o. daily (8) Hypertension, essential: Hypertension Lisinopril daily (9) Hypothyroidism: Hypothyroidism Continue Synthroid 150 mcg p.o. daily TSH unlikely to be accurate in setting of acute illness, levels have been intermittently normal/low in the past. Recommend rechecking following convalescence DVT prophylaxis SCDs Defer pharmacal prophylaxis in the setting of high fall risk Disposition: Medical/telemetry CODE STATUS: DNR/DNI Diet: Regular Total Time Total Time Spent Total Time Spent (In Minutes): 32 Discharge Plan Discharge Items Patient Disposition: Home - Home Health Services Reason For Visit: HYPOXIA, CHILLS, N/V Discharge Diagnosis: Hypoxia, chills, N/V Activity: Resume your previous activity Non-emergency contact: Primary Care Provider Call non-emergency contact if: you have any medication questions Follow-up/Referrals: Rome Castellanos MD [Primary Care Provider] - 05/29/21 11:00 am Diet: Heart Healthy Addtl Attending Provider Instructions: Hold ferusul while on antibiotic Hold multivitamin while on antibiotic. Try to limit sun exposure during week of antibiotic. recommend followup with PCP in 1-2 weeks Pending Studies at Discharge: No Stand-Alone Forms: My [facility], Smoking Cessation Medications and DC Order Prescriptions: New doxycycline hyclate 100 mg tablet 100 mg PO BID 7 Days Qty: 14 RF: 0 Continued oxybutynin chloride 5 mg tablet extended release 24hr 5 mg PO HS Qty: 30 RF: 11 lisinopril 10 mg tablet 10 mg PO DAILY Qty: 90 RF: 3 levothyroxine 137 mcg tablet 137 mcg PO DAILY Qty: 90 RF: 3 cyanocobalamin (vitamin B-12) [Vitamin B-12] 1,000 mcg tablet 500 mcg PO QAM RF: 0 gabapentin 300 mg capsule 600 mg PO HS Qty: 60 RF: 5 alendronate 70 mg tablet 70 mg PO .COMPLEX Qty: 12 RF: 1 atorvastatin 40 mg tablet 40 mg PO HS Qty: 90 RF: 3 pantoprazole 40 mg tablet,delayed release (DR/EC) 40 mg PO QAM Qty: 30 RF: 11 ascorbic acid (vitamin C) 500 mg tablet 500 mg PO QAM RF: 0 nitrofurantoin monohyd/m-cryst [Macrobid] 100 mg capsule 100 mg PO BID 5 Days Qty: 10 RF: 0 ferrous sulfate [FeroSul] 325 mg (65 mg iron) tablet 325 mg PO QAM RF: 0 Centrum Silver Women 8 mg iron-400 mcg-300 mcg tablet 1 tab PO QAM RF: 0 aspirin [Adult Low Dose Aspirin] 81 mg tablet,delayed release (DR/EC) 81 mg PO QAM RF: 0 cholecalciferol (vitamin D3) [Vitamin D3] 2,000 unit Tablet 2,000 unit PO QAM RF: 0 vitamin A 2,400 mcg capsule 2,400 mcg PO QAM RF: 0 vitamin E 100 unit capsule 100 unit PO QAM RF: 0 acetaminophen 500 mg tablet 1,000 mg PO TID PRN (Reason: Pain) RF: 0 glucosamine-chondroitin [Osteo Bi-Flex] 250-200 mg Tablet 2 tab PO TID RF: 0 Changed polyethylene glycol 3350 [Miralax] 17 gram Powder In Packet 17 g PO DAILY PRN (Reason: constipation) Qty: 30 RF: 0 Discharge Orders: Discharge Order (Routine); Ordered 05/16/21 Ordered By: Chente Ruby Admission Data Admit Date/Time: 05/13/21 19:39 Attending Provider: Chente Ruby Admit Provider: Fabian Muir Primary Care Provider: Rome Castellanos Other Providers: Fabian Muir ; [facility] Other Interventions: Discharge Summary Assessment (RN) Last Done: 05/16/21 12:10 Coding Level of Care Code D/C DAY MANAGEMENT >30 MINS Diagnoses Weakness R53.1 Hypoxia R09.02 Monoclonal gammopathy of unknown significance (MGUS) D47.2 Myasthenia gravis, AChR antibody positive G70.00 S/P ICD (internal cardiac defibrillator) procedure Z95.810 Constipation K59.00 Stress incontinence N39.3 Hypertension, essential I10 Hypothyroidism E03.9
[2021-05-19] MEDS ORDERED: ALENDRONATE SODIUM 70 MG TAB PO SCH (06:30)
== END 2021-05-16 13:57 | disposition home health service (06) ==
LOC: ED 13:27 → INTOOBSV 19:39 → 2W 19:39 → SUATTDRO 19:39 → 2W 20:35

== ENCOUNTER 2022-02-08 12:36 | Observation (INO) ==
--- NOTE | 2022-02-08 13:45 | Emergency Department Note ---
Impression & Plan Fecal impaction, Diarrhea, Bilateral lower extremity edema ED Provider Note NAME: OLE PATTON AGE: 87 SEX: F : 1935 ARRIVES VIA: Walk-In INFORMANT: Patient, the patient's family members ED PROVIDER(S): Morro Alexander DO CHIEF COMPLAINT: Diarrhea HPI: The patient is an 87-year-old female who presented to the emergency [facility] at the request of her primary care physician for diarrhea. The patient's been having episodes of diarrhea over the last few days. She was seen in our facility last evening and had a complete work-up including CT of the abdomen and pelvis. Admission was offered but the patient did not want to stay in the hospital and was discharged home. They called to follow-up with her family doctor today but they were referred to the emergency department for further evaluation. The patient's work-up last evening appear to be consistent with fecal impaction and leakage around this area. The patient has also been noticing lower extremity weakness swelling in the legs and difficulty breathing. The family members are requesting the patient be admitted to the hospital. ROS: See above HPI for pertinent positives & negatives. A total of 10 systems reviewed and were otherwise negative. PAST MEDICAL HISTORY: See Below PAST SURGICAL HISTORY: See Below FAMILY HISTORY: See Below SOCIAL HISTORY: See Below HOME MEDICATIONS: See Below ALLERGIES: See Below VITALS: See Below PHYSICAL EXAMINATION: GENERAL: Patient is awake alert in no acute distress patient is resting comfortably and showing no signs of anxiety EYES: The conjunctivae are clear. The pupils are round and reactive. EARS, NOSE, MOUTH AND THROAT: The nose is without any evidence of any deformity. Mucous membranes are moist. Tongue is midline. NECK: The neck is nontender and supple. RESPIRATORY: Normal respiratory effort is noted there is no evidence of wheezing rhonchi or rales CARDIOVASCULAR: Regular rate and rhythm noted there no murmurs rubs or gallops normal S1 normal S2. GASTROINTESTINAL: The abdomen is soft and diffusely tender. There is no guarding or rigidity noted. MUSCULOSKELETAL/EXTREMITIES: There is no evidence of gross deformity full range of motion is noted in the hips and shoulders. SKIN: Skin was warm and dry. Pedal edema was noted bilaterally. NEUROLOGIC: Patient is awake alert and oriented x3 MEDICAL DECISION MAKING: The patient is an 87-year-old female who presented to the emergency department for an evaluation of generalized weakness lower extremity swelling and diarrhea. The patient was seen in our facility last evening for similar complaints. At that time she was diagnosed with fecal impaction. She was offered admission last evening but did not want to stay in the hospital. The patient returns emergency department today because worsening symptoms. I discussed the patient's laboratory and radiographic studies with her. Ultimately she was treated with an enema but did not have good results. The family was requesting an evaluation by the hospitalist as the patient's been getting worse and having more weakness and they are having difficulty managing her at home. She was treated with IV fluids. Triage Nursing notes reviewed. Prior medical records reviewed Vital Signs: reviewed and remarkable for no significant abnormalities Differential diagnosis: Etiologies such as appendicitis, diverticulitis, obstruction, inflammatory bowel disease, renal colic, PUD, biliary pathology, pancreatitis, mesenteric ischemia, aortic pathology, infections, genitourinary, UTI, perforated viscus, as well as others were entertained. ER treatment provided: See below Diagnostics interpreted by me: ECG: EKG was obtained in the emergency department. My interpretation is atrial sensed rhythm with ventricular paced rhythm at 91 bpm. No [place] beats were PVCs were noted. This was compared to tracing from February 07, 2022. No changes were noted. Cardiac Monitoring: An order was placed for continuous cardiac monitoring. The monitor shows a rate of 86 bpm with paced rhythm. Laboratory studies: As stated above and show below. Imaging studies: See below Consultation(s): I discussed this case with Dr. Alfaro who is on-call for the [facility] hospitalist group. Past Med/Surg History Medical History Acute back pain Acute UTI Anemia Cardiac defibrillator in place Cardiomyopathy Carotid artery stenosis Chronic pancreatitis CKD (chronic kidney disease) stage 3, GFR 30-59 ml/min Colitis Degenerative joint disease (DJD) of hip Diabetes mellitus, type 2 Diabetic nephropathy Diabetic peripheral neuropathy Diverticulitis Diverticulosis of colon Duodenal ulcer Fall Fall GERD (gastroesophageal reflux disease) GERD without esophagitis HLD (hyperlipidemia) HTN (hypertension), benign Hypercholesterolemia Hypothyroid IBS (irritable bowel syndrome) ICD (implantable cardioverter-defibrillator) battery depletion Insomnia Lumbar canal stenosis Lumbar spondylosis Nocturia Nonischemic cardiomyopathy Osteoarthritis Osteoporosis Presence of cardiac pacemaker Pulmonary nodule Rib fracture 12/27/18 R/T FALL. D/C'D TO [facility]. Scaphoid fracture of wrist Urge incontinence of urine Vitamin D deficiency, unspecified Surgical History History of cardiac cath PER PT, 5-10 YEARS AGO AT [facility] - REASON? - NO STENTS/ANGIOPLASTY History of cholecystectomy History of colonoscopy History of ERCP w/ sphincterotomy & CBD stent History of esophagogastroduodenoscopy (EGD) History of vertebroplasty T12 S/P appendectomy S/P hysterectomy S/P ICD (internal cardiac defibrillator) procedure Biventricular AICD placed in 2007, Generator Change-out 02/15/2020 -- now has a [employer] MRI DIGITAL PRODUCTION ARTIST-D Bi-V AICD. S/P kyphoplasty S/P partial colectomy S/P rotator cuff surgery Family History Son Diabetes Sister Breast cancer Denies family history of Ovarian cancer Prostate cancer Hearing loss Coronary heart disease No family history of adverse response to anesthesia No family history of bleeding disorder Heart disease Allergies Myocardial infarction Colorectal cancer Cancer Hypertension Stroke Asthma Social History Smoking Status: Never smoker Second Hand Exposure: No; Hx Alcohol Use: No Hx Substance Use: No Preferred Language: Haitian Communication Ability: Effective Visual Impairment: No Limitations Hearing Ability: Normal Emergency Spill Response Technician Required: No Beliefs That Will Affect Care: None marital status: Current Living Situation: Spouse current occupational status: retired current occupation: retired from career with [employer] How many Children do You have: 6 Feels Safe at Home: Yes Childhood Exposure to Second-Hand Smoke: No caffeine: Yes Dental Care, Regularly: No Physical Activity Frequency: Does not Exercise Seatbelt Use: always Sunscreen Use: No Assistive Devices: Denture - Upper and Denture - Lower Allergies Allergies Allergy/AdvReac Type Severity Reaction Status Date / Time celecoxib Allergy Severe SX OF Verified 02/07/22 18:21 STROKE, FACIAL NUMBNESS, UNABLE TO SPEAK fesoterodine [From Toviaz] Allergy Unknown Unknown Verified 02/07/22 18:21 solifenacin [From Vesicare] Allergy Unknown Unknown Verified 02/07/22 18:21 morphine AdvReac Intermediate Confusion Verified 02/07/22 18:21 ciprofloxacin AdvReac Mild UPSET Verified 02/07/22 18:21 STOMACH metronidazole AdvReac Mild N/V Verified 02/07/22 18:21 Home Meds Home Medications Medication Instructions Recorded Confirmed cholecalciferol (vitamin D3) 50 2,000 unit PO QAM 08/05/18 02/07/22 mcg (2,000 unit) tablet (Vitamin D3) ascorbic acid (vitamin C) 500 mg 500 mg PO QAM tab 02/26/19 02/07/22 tablet ferrous sulfate 325 mg (65 mg 325 mg PO QAM 08/21/20 02/07/22 iron) tablet (FeroSul) multivit with 1 tab PO QAM 08/21/20 02/07/22 limlejzu-gxke-OF-lutein 8 mg iron-400 mcg-300 mcg tablet (Centrum Silver Women) acetaminophen 500 mg tablet 1,000 mg PO TID PRN 01/15/21 02/07/22 vitamin A 2,400 mcg capsule 2,400 mcg PO QAM cap 01/23/21 02/07/22 vitamin E 100 unit capsule 100 unit PO QAM cap 01/23/21 02/07/22 cyanocobalamin (vitamin B-12) 500 mcg PO QAM tab 03/26/21 02/07/22 1,000 mcg tablet (Vitamin B-12) glucosamine-chondroitin 250 mg-200 1 tab PO DAILY 05/13/21 02/07/22 mg tablet (Osteo Bi-Flex) diphenhydramine 25 2 tab PO HS 12/15/21 02/07/22 mg-acetaminophen 500 mg tablet (Tylenol PM Extra Strength) famotidine 20 mg tablet 20 mg PO HS 12/16/21 02/07/22 alendronate 70 mg tablet 70 mg PO WK 02/07/22 02/07/22 Previous Rx's Medication Instructions Recorded lisinopril 10 mg tablet 10 mg PO DAILY #90 tab 03/21/21 levothyroxine 137 mcg tablet 137 mcg PO DAILY #90 tab 03/26/21 atorvastatin 40 mg tablet 40 mg PO HS #90 tab 04/30/21 pantoprazole 40 mg tablet,delayed 40 mg PO QAM #30 tab 05/07/21 release oxybutynin chloride 5 mg 5 mg PO HS #30 tab 10/01/21 tablet,extended release 24 hr gabapentin 300 mg capsule 600 mg PO HS #60 cap 11/19/21 diphenoxylate-atropine 2.5 1 tab PO TID PRN 90 Days #270 tab 01/31/22 mg-0.025 mg tablet (Lomotil) pyridostigmine bromide 60 mg 60 mg PO TID 90 Days #270 tab 01/31/22 tablet (Mestinon) Results & Data (ED) Vital Signs Vital Signs - 24 hr 02/08/22 12:38 02/08/22 13:46 02/08/22 14:00 Temperature 36.4 C L Temperature Source Temporal Artery Scan Pulse Rate Pulse Rate from SpO2 Sensor 100 H 90 Pulse Rhythm Respiratory Rate 16 Respiratory Effort / Characteristics Non-Labored Respiratory Depth Normal Blood Pressure 154/90 H Blood Pressure Mean 111 Pulse Oximetry 97 71 L 93 Oxygen Delivery Method Room Air Sepsis Recent Fever Within 48 Hours No Sepsis New/Unexplained Change in Mental Status No Sepsis Action Taken by Nursing No Action Required 02/08/22 14:08 02/08/22 14:30 02/08/22 15:00 Temperature Temperature Source Pulse Rate 53 L 91 H 93 H Pulse Rate from SpO2 Sensor 93 H Pulse Rhythm Regular Respiratory Rate 20 20 21 Respiratory Effort / Characteristics Respiratory Depth Blood Pressure Blood Pressure Mean Pulse Oximetry 93 96 Oxygen Delivery Method Room Air Sepsis Recent Fever Within 48 Hours Sepsis New/Unexplained Change in Mental Status Sepsis Action Taken by Nursing 02/08/22 15:30 02/08/22 16:00 02/08/22 16:30 Temperature Temperature Source Pulse Rate 92 H 90 96 H Pulse Rate from SpO2 Sensor 91 H 107 H Pulse Rhythm Respiratory Rate 16 27 H 22 Respiratory Effort / Characteristics Respiratory Depth Blood Pressure 128/79 Blood Pressure Mean 95 Pulse Oximetry 96 78 L Oxygen Delivery Method Sepsis Recent Fever Within 48 Hours Sepsis New/Unexplained Change in Mental Status Sepsis Action Taken by [facility] Medications Current Medication List: was personally reviewed by me Laboratory Data Attestation: I reviewed the patient's lab results. Result diagrams: 02/08/22 14:44 02/08/22 14:44 Lab Results 02/08/22 02/08/22 02/08/22 Range/Units 14:12 14:44 14:44 WBC 6.91 (4.8-10.8) K/uL RBC 4.33 (4.2-5.4) M/uL Hgb 14.1 (12.0-16.0) g/dL Hct 43.4 (37-47) % MCV 100.2 H (80-100) fL MCH 32.6 (25-34) pg MCHC 32.5 (32-36) g/dL RDW Std Deviation 49.9 H (36.4-46.3) fL RDW Coeff of Radha 13.5 (11.5-14.5) % Plt Count 189 (130-400) K/uL MPV 10.7 H (7.4-10.4) fL Immature Gran % (Auto) 0.1 % Neut % (Auto) 70.4 % Lymph % (Auto) 20.0 % [place] % (Auto) 8.8 % Eos % (Auto) 0.6 % Baso % (Auto) 0.1 % Neut # (Auto) 4.86 (1.4-6.5) K/uL Lymph # (Auto) 1.38 (1.2-3.4) K/uL [place] # (Auto) 0.61 H (0.11-0.59) K/uL Eos # (Auto) 0.04 (0-0.5) K/uL Baso # (Auto) 0.01 (0-0.2) K/uL Immature Gran # (Auto) 0.01 (0.00-0.02) K/uL PT 11.4 (9.0-12.0) Seconds INR 1.1 (0.9-1.1) APTT 27.9 (21.0-31.0) Seconds PTT Ratio 1.0 Sodium (136-145) mmol/L Potassium (3.5-5.1) mmol/L Chloride (98-107) mmol/L Carbon Dioxide (21-32) mmol/L Anion Gap (3-11) BUN (6-23) mg/dl Creatinine (0.6-1.2) mg/dl Est Cr Clr Drug Dosing Est GFR ( Amer) ml/min Est GFR (Non-Af Amer) ml/min BUN/Creatinine Ratio (10-20) Glucose (70-99(Fasting)) mg/dl Calcium (8.5-10.1) mg/dl Total Bilirubin (0.2-1.0) mg/dl AST (13-39) U/L ALT (7-52) U/L Alkaline Phosphatase (34-104) U/L Troponin I High Sens (0-14) pg/ml Total Protein (6.0-8.3) gm/dl Albumin (3.4-5.0) gm/dl Globulin (2.5-4.0) gm/dl Albumin/Globulin Ratio (0.9-2) Lipase (11-82) U/L SARS-CoV-2, RNA, NAAT NEGATIVE (NEGATIVE) 02/08/22 Range/Units 14:44 WBC (4.8-10.8) K/uL RBC (4.2-5.4) M/uL Hgb (12.0-16.0) g/dL Hct (37-47) % MCV (80-100) fL MCH (25-34) pg MCHC (32-36) g/dL RDW Std Deviation (36.4-46.3) fL RDW Coeff of Radha (11.5-14.5) % Plt Count (130-400) K/uL MPV (7.4-10.4) fL Immature Gran % (Auto) % Neut % (Auto) % Lymph % (Auto) % [place] % (Auto) % Eos % (Auto) % Baso % (Auto) % Neut # (Auto) (1.4-6.5) K/uL Lymph # (Auto) (1.2-3.4) K/uL [place] # (Auto) (0.11-0.59) K/uL Eos # (Auto) (0-0.5) K/uL Baso # (Auto) (0-0.2) K/uL Immature Gran # (Auto) (0.00-0.02) K/uL PT (9.0-12.0) Seconds INR (0.9-1.1) APTT (21.0-31.0) Seconds PTT Ratio Sodium 139 (136-145) mmol/L Potassium 4.0 (3.5-5.1) mmol/L Chloride 101 (98-107) mmol/L Carbon Dioxide 31 (21-32) mmol/L Anion Gap 7 (3-11) BUN 10 (6-23) mg/dl Creatinine 0.89 (0.6-1.2) mg/dl Est Cr Clr Drug Dosing Not Reportable Est GFR ( Amer) 66.6 ml/min Est GFR (Non-Af Amer) 57.5 ml/min BUN/Creatinine Ratio 11.2 (10-20) Glucose 96 (70-99(Fasting)) mg/dl Calcium 9.3 (8.5-10.1) mg/dl Total Bilirubin 1.1 H (0.2-1.0) mg/dl AST 25 (13-39) U/L ALT 14 (7-52) U/L Alkaline Phosphatase 63 (34-104) U/L Troponin I High Sens 15.7 H (0-14) pg/ml Total Protein 6.7 (6.0-8.3) gm/dl Albumin 3.7 (3.4-5.0) gm/dl Globulin 3.0 (2.5-4.0) gm/dl Albumin/Globulin Ratio 1.2 (0.9-2) Lipase 12 (11-82) U/L SARS-CoV-2, RNA, NAAT (NEGATIVE) Imaging Data Radiologist's Impression: KUB X-Ray 02/08/22 13:29 KUB HISTORY: diarhea COMPARISON: Abdomen and pelvis CT 02/07/2022. FINDINGS: There is also contrast within the colon. No evidence for bowel obstruction. Moderate stool ball again noted within the rectum measuring 7.2 cm. There is contrast within the bladder lumen from the recent CT examination. There is a left total hip arthroplasty. Colonic diverticulosis. Left-sided dual- chamber pacemaker. Dextroscoliosis of the lumbar spine. No renal calculi. No ureteral calculi. No pneumoperitoneum or pneumatosis. IMPRESSION: 1. No evidence for bowel obstruction. 2. Moderate stool ball again noted within the rectum. 3. Colonic diverticulosis. ACT 112: Negative or not required by law. Electronically signed by: Kranthi Mena M.D. 02/08/2022 2:05 PM Chest X-Ray 02/08/22 13:30 XR chest 1V portable CLINICAL HISTORY: diarrhea COMPARISON STUDY: Chest CT October 01, 2021. Chest radiograph February 07, 2022. FINDINGS: Left subclavian pacer/AICD is in place. There is no pneumothorax or pleural effusion. There is no consolidation or evidence for pulmonary edema. Skin folds project over the right chest. Patient is rotated. Cardiomegaly is unchanged. Severe degenerative changes of both glenohumeral joints are noted. IMPRESSION: No acute cardiopulmonary findings. ACT 112: Negative or not required by law. Electronically signed by: Kendall Kirby M.D. 02/08/2022 2:04 PM Discharge Plan Visit Data Chief Complaint: Illness Stated Complaint: SHORTNESS OF BREATH, DIARRHEA ED Provider: Morro Alexander Discharge Problem: Fecal impaction, Diarrhea, Bilateral lower extremity edema Patient Disposition: Being Evaluated by Hospitalist Forms Stand Alone Forms: [facility] Prescriptions Prescriptions: No Action lisinopril 10 mg tablet 10 mg PO DAILY Qty: 90 RF: 3 levothyroxine 137 mcg tablet 137 mcg PO DAILY Qty: 90 RF: 3 cyanocobalamin (vitamin B-12) [Vitamin B-12] 1,000 mcg tablet 500 mcg PO QAM RF: 0 atorvastatin 40 mg tablet 40 mg PO HS Qty: 90 RF: 3 pantoprazole 40 mg tablet,delayed release (DR/EC) 40 mg PO QAM Qty: 30 RF: 11 oxybutynin chloride 5 mg tablet extended release 24hr 5 mg PO HS Qty: 30 RF: 11 gabapentin 300 mg capsule 600 mg PO HS Qty: 60 RF: 5 ascorbic acid (vitamin C) 500 mg tablet 500 mg PO QAM RF: 0 ferrous sulfate [FeroSul] 325 mg (65 mg iron) tablet 325 mg PO QAM RF: 0 Centrum Silver Women 8 mg iron-400 mcg-300 mcg tablet 1 tab PO QAM RF: 0 pyridostigmine bromide [Mestinon] 60 mg tablet 60 mg PO TID 90 Days Qty: 270 RF: 1 diphenoxylate-atropine [Lomotil] 2.5-0.025 mg tablet 1 tab PO TID PRN (Reason: diarrhea) 90 Days Qty: 270 RF: 1 cholecalciferol (vitamin D3) [Vitamin D3] 2,000 unit Tablet 2,000 unit PO QAM RF: 0 vitamin A 2,400 mcg capsule 2,400 mcg PO QAM RF: 0 vitamin E 100 unit capsule 100 unit PO QAM RF: 0 acetaminophen 500 mg tablet 1,000 mg PO TID PRN (Reason: Pain) RF: 0 glucosamine-chondroitin [Osteo Bi-Flex] 250-200 mg Tablet 1 tab PO DAILY RF: 0 diphenhydramine-acetaminophen [Tylenol PM Extra Strength] 25-500 mg Tablet 2 tab PO HS RF: 0 famotidine 20 mg Tablet 20 mg PO HS RF: 0 alendronate 70 mg tablet 70 mg PO WK RF: 0 Referrals Referrals: Adriano Castellanos MD [Primary Care Provider] -
--- NOTE | 2022-02-08 14:06 | XRay Report ---
XR chest 1V portable CLINICAL HISTORY: diarrhea COMPARISON STUDY: Chest CT October 01, 2021. Chest radiograph February 07, 2022. FINDINGS: Left subclavian pacer/AICD is in place. There is no pneumothorax or pleural effusion. There is no consolidation or evidence for pulmonary edema. Skin folds project over the right chest. Patien t is rotated. Cardiomegaly is unchanged. Severe degenerative changes of both glenohumeral joints are noted. IMPRESSION: No acute cardiopulmonary findings. ACT 112: Negative or not required by law. Electronically signed by: Kendall Kirby M.D. 02/08/2022 2:04 PM
--- NOTE | 2022-02-08 14:06 | XRay Report ---
KUB HISTORY: diarhea COMPARISON: Abdomen and pelvis CT 02/07/2022. FINDINGS: There is also contrast within the colon. No evidence for bowel obstruction. Moderate stool ball again noted within the rectum measuring 7.2 cm. There is contrast within the bladder lumen from the recent CT examination. There is a left total hip arthroplasty. Colonic diverticulosis. Left-sided dual-chamber pacemaker. Dextroscoliosis of the lumbar spine. No renal calculi. No ureteral calculi. No pneumoperitoneum or pneumatosis. IMPRESSION: 1. No evidence for bowel obstruction. 2. Moderate stool ball again noted within the rectum. 3. Colonic diverticulosis. ACT 112: Negative or not required by law. Electronically signed by: Kranthi Mena M.D. 02/08/2022 2:05 PM
[2022-02-08 14:58] LABS: Basophils # (auto) 0.01 K/uL (0-0.2); Basophils % (auto) 0.1 %; Eosinophils # (auto) 0.04 K/uL (0-0.5); Eosinophils % (auto) 0.6 %; Hematocrit (blood only) 43.4 % (37-47); Hemoglobin 14.1 g/dL (12.0-16.0); Immature Granulocytes # (auto) 0.01 K/uL (0.00-0.02); Immature Granulocytes % (auto) 0.1 %; Lymphocytes # (auto) 1.38 K/uL (1.2-3.4); Mean Corpuscular Hemoglobin 32.6 pg (25-34); Mean Corpuscular Hgb Conc 32.5 g/dL (32-36); Mean Corpuscular Volume 100.2 fL (80-100); Mean Platelet Volume 10.7 fL (7.4-10.4); Monocytes # (auto) 0.61 K/uL (0.11-0.59); Monocytes % (auto) 8.8 %; Neutrophils # (auto) 4.86 K/uL (1.4-6.5); Neutrophils % (auto) 70.4 %; Platelet Count 189 K/uL (130-400); RDW Coefficient of Variation 13.5 % (11.5-14.5); RDW Standard Deviation 49.9 fL (36.4-46.3); Red Blood Count 4.33 M/uL (4.2-5.4); White Blood Count 6.91 K/uL (4.8-10.8)
[2022-02-08 15:16] LABS: INR 1.1 (0.9-1.1); Partial Thromboplastin Time 27.9 Seconds (21.0-31.0); Prothrombin Time 11.4 Seconds (9.0-12.0)
[2022-02-08 15:25] LABS: Alanine Aminotransferase 14 U/L (7-52); Albumin Globulin Ratio 1.2 (0.9-2); Albumin Level 3.7 gm/dl (3.4-5.0); Alkaline Phosphatase 63 U/L (34-104); Anion Gap 7 (3-11); Aspartate Aminotransferase 25 U/L (13-39); BUN Creatinine Ratio 11.2 (10-20); Bilirubin,Total 1.1 mg/dl (0.2-1.0); Blood Urea Nitrogen 10 mg/dl (6-23); Calcium 9.3 mg/dl (8.5-10.1); Carbon Dioxide 31 mmol/L (21-32); Chloride 101 mmol/L (98-107); Est GFR (African American) 66.6 ml/min; Est GFR (Non-African American) 57.5 ml/min; Glucose 96 mg/dl (70-99(Fasting)); Lipase 12 U/L (11-82); Sodium 139 mmol/L (136-145); Total Protein 6.7 gm/dl (6.0-8.3)
[2022-02-08 15:27] LABS: Troponin I High Sensitivity 15.7 pg/ml (0-14)
--- NOTE | 2022-02-08 17:18 | History & Physical Report ---
Date of Service February 08, 2022 Assessment & Plan (1) Fecal impaction: (2) Diarrhea: (3) Dyspnea: (4) GERD (gastroesophageal reflux disease): (5) CKD (chronic kidney disease) stage 3, GFR 30-59 ml/min: (6) Hypothyroid: (7) HLD (hyperlipidemia): (8) Diabetes mellitus, type 2: (9) Nonischemic cardiomyopathy: (10) Myasthenia gravis, AChR antibody positive: (11) Mixed stress and urge incontinence: (12) Ambulatory dysfunction: Plan: 87-year-old female with past medical history significant for MGUS, osteoporosis, urinary retention, stress incontinence, myasthenia gravis, hypertension, GERD, diabetes, carotid artery stenosis, hyperlipidemia, CKD stage_, chronic constipation admitted for ambulatory dysfunction, poor oral intake, and overflow diarrhea. Overflow diarrhea: Patient with a long standing history of chronic constipation, including a history of stercoral colitis requiring disimpaction and bowel regimen in the past. Per patient she has had several episodes of loose stools over the last several days when usually they are more formed, with some associated nausea and poor oral intake. CTAP performed yesterday for LLQ abdominal pain showed large amount of stool within the rectum with mild rectal wall thickening and adjacent stranding. S/p disimpaction by myself; was able to remove a large volume of stool from the patient's rectum. Will give bisacodyl suppository x1 now, and schedule both MiraLAX and Senokot twice daily. Titrate medications up and and enemas as required. Patient will need a chronic bowel regimen on discharge. Patient has stated to this provider that she would not want colonoscopy or any other kind of procedure at this point in time. Zofran as needed for nausea. Dyspnea: Subjective reports of dyspnea over the last several days. Did have a reading of hypoxia to 78% x1 in ER today, however poor waveform and has been saturating well on room air since that time. CXR without evidence of pulmonary edema, pleural effusion, pneumonia. As patient is having a lot of wheezing on exam, will give Xopenex nebulizer x1. Will also have patient use incentive spirometer. Ambulatory dysfunction: With several days of full body weakness and malaise in the setting of likely viral gastroenteritis as well as severe constipation and stool ball. Has a history of ambulatory dysfunction in the past requiring home health services on discharge. PT and OT orders placed, case management to follow in the event that patient requires home health services versus long term facility. Idiopathic nonischemic cardiomyopathy: History of, s/p ICD with improvement in EF from 25% to 60%. No evidence today of pulmonary edema or JVD. No recent echocardiogram on file. Given complaints of dyspnea and increasing peripheral edema will order Echo to evaluate LV function as recommended in last cardiology outpatient note. DM2: Basal/bolus insulin while admitted. Will hold off on low-carb diet at this time as patient's blood sugars have been stable and normal at home and patient is requesting carb-based foods. This decision was made in concert with patient and family as she has not been eating well and would prefer her to have oral intake at this time even if that means things such as mashed potatoes. Myasthenia gravis: Continue pyridostigmine 30mg TID. Hold diphenoxylate given trying to maintain motility for significant constipation. CKD stage III: Baseline creatinine 0.81.1; at baseline on admission. Hypothyroidism: Continue home levothyroxine. GERD: Continue home famotidine and PPI. Mixed urinary incontinence: Continue oxybutynin. HTN: Continue lisinopril. HLD: Continue statin. CODE STATUS: DNR/DNI FEN: Regular minced and moist diet; can switch to DM2 as patient has more intake DVT prophylaxis: Lovenox daily Dispo: Med/Surg History of Present Illness Chief Complaint: Diarrhea, weakness Primary Care Provider: Adriano Castellanos MD 87-year-old female with past medical history significant for MGUS, osteoporosis, urinary retention, stress incontinence, myasthenia gravis, hypertension, GERD, diabetes, carotid artery stenosis, hyperlipidemia, CKD stag e_, chronic constipation presented to the ER for worsening weakness over the last several days as well as lower extremity edema and episode of breathlessness earlier today. She also reports an increase in diarrhea recently. She is on pyridostigmine for myasthenia gravis and difficulty with chewing which she reports causes her to have more diarrhea. She lives at home with her . Over the last several days she has not been able to perform her ADLs without significant assistance. She has not been eating or drinking well over the last couple of days due to weakness. No reported fevers, chest pain, abdominal pain, nausea, vomiting, URI symptoms. Allergies Allergy/AdvReac Type Severity Reaction Status Date / Time celecoxib Allergy Severe SX OF Verified 02/07/22 18:21 STROKE, FACIAL NUMBNESS, UNABLE TO SPEAK fesoterodine [From Toviaz] Allergy Unknown Unknown Verified 02/07/22 18:21 solifenacin [From Vesicare] Allergy Unknown Unknown Verified 02/07/22 18:21 morphine AdvReac Intermediate Confusion Verified 02/07/22 18:21 ciprofloxacin AdvReac Mild UPSET Verified 02/07/22 18:21 STOMACH metronidazole AdvReac Mild N/V Verified 02/07/22 18:21 Home Medications Medication Instructions Recorded Confirmed Type cholecalciferol (vitamin D3) 50 2,000 unit PO QAM 08/05/18 02/07/22 History mcg (2,000 unit) tablet (Vitamin D3) ascorbic acid (vitamin C) 500 mg 500 mg PO QAM tab 02/26/19 02/07/22 History tablet ferrous sulfate 325 mg (65 mg 325 mg PO QAM 08/21/20 02/07/22 History iron) tablet (FeroSul) multivit with 1 tab PO QAM 08/21/20 02/07/22 History bdphywom-zjhy-WB-lutein 8 mg iron-400 mcg-300 mcg tablet (Centrum Silver Women) acetaminophen 500 mg tablet 1,000 mg PO TID PRN 01/15/21 02/07/22 History vitamin A 2,400 mcg capsule 2,400 mcg PO QAM cap 01/23/21 02/07/22 History vitamin E 100 unit capsule 100 unit PO QAM cap 01/23/21 02/07/22 History lisinopril 10 mg tablet 10 mg PO DAILY #90 tab 03/21/21 02/07/22 Rx cyanocobalamin (vitamin B-12) 500 mcg PO QAM tab 03/26/21 02/07/22 History 1,000 mcg tablet (Vitamin B-12) levothyroxine 137 mcg tablet 137 mcg PO DAILY #90 tab 03/26/21 02/07/22 Rx atorvastatin 40 mg tablet 40 mg PO HS #90 tab 04/30/21 02/07/22 Rx pantoprazole 40 mg tablet,delayed 40 mg PO QAM #30 tab 05/07/21 02/07/22 Rx release glucosamine-chondroitin 250 mg-200 1 tab PO DAILY 05/13/21 02/07/22 History mg tablet (Osteo Bi-Flex) oxybutynin chloride 5 mg 5 mg PO HS #30 tab 10/01/21 02/07/22 Rx tablet,extended release 24 hr gabapentin 300 mg capsule 600 mg PO HS #60 cap 11/19/21 02/07/22 Rx diphenhydramine 25 2 tab PO HS 12/15/21 02/07/22 History mg-acetaminophen 500 mg tablet (Tylenol PM Extra Strength) famotidine 20 mg tablet 20 mg PO HS 12/16/21 02/07/22 History diphenoxylate-atropine 2.5 1 tab PO TID PRN 90 Days #270 tab 01/31/22 02/07/22 Rx mg-0.025 mg tablet (Lomotil) pyridostigmine bromide 60 mg 60 mg PO TID 90 Days #270 tab 01/31/22 02/07/22 Rx tablet (Mestinon) alendronate 70 mg tablet 70 mg PO WK 02/07/22 02/07/22 History Past Med/Surg History Medical History Acute back pain Acute UTI Anemia Cardiac defibrillator in place Cardiomyopathy Carotid artery stenosis Chronic pancreatitis CKD (chronic kidney disease) stage 3, GFR 30-59 ml/min Colitis Degenerative joint disease (DJD) of hip Diabetes mellitus, type 2 Diabetic nephropathy Diabetic peripheral neuropathy Diverticulitis Diverticulosis of colon Duodenal ulcer Fall Fall GERD (gastroesophageal reflux disease) GERD without esophagitis HLD (hyperlipidemia) HTN (hypertension), benign Hypercholesterolemia Hypothyroid IBS (irritable bowel syndrome) ICD (implantable cardioverter-defibrillator) battery depletion Insomnia Lumbar canal stenosis Lumbar spondylosis Nocturia Nonischemic cardiomyopathy Osteoarthritis Osteoporosis Presence of cardiac pacemaker Pulmonary nodule Rib fracture 09/17/18 R/T FALL. D/C'D TO [facility]. Scaphoid fracture of wrist Urge incontinence of urine Vitamin D deficiency, unspecified Surgical History History of cardiac cath PER PT, 5-10 YEARS AGO AT [facility] - REASON? - NO STENTS/ANGIOPLASTY History of cholecystectomy History of colonoscopy History of ERCP w/ sphincterotomy & CBD stent History of esophagogastroduodenoscopy (EGD) History of vertebroplasty T12 S/P appendectomy S/P hysterectomy S/P ICD (internal cardiac defibrillator) procedure Biventricular AICD placed in 2007, Generator Change-out 02/15/2020 -- now has a [employer] Claria MRI CPHT-D Bi-V AICD. S/P kyphoplasty S/P partial colectomy S/P rotator cuff surgery Family History Son Diabetes Sister Breast cancer Denies family history of Ovarian cancer Prostate cancer Hearing loss Coronary heart disease No family history of adverse response to anesthesia No family history of bleeding disorder Heart disease Allergies Myocardial infarction Colorectal cancer Cancer Hypertension Stroke Asthma Social History Smoking Status: Never smoker Second Hand Exposure: No; Hx Alcohol Use: No Hx Substance Use: No Preferred Language: Faroese Communication Ability: Effective Visual Impairment: No Limitations Hearing Ability: Normal Flange Turner Required: No Beliefs That Will Affect Care: None marital status: Current Living Situation: Spouse current occupational status: retired current occupation: retired from career with [employer] How many Children do You have: 6 Other Information That Helps Us Care for You: No Feels Safe at Home: Yes Safety Concerns: Feels Safe At This Time Childhood Exposure to Second-Hand Smoke: No caffeine: Yes Dental Care, Regularly: No Physical Activity Frequency: Does not Exercise Seatbelt Use: always Sunscreen Use: No Assistive Devices: Cane and Walker Review of Systems Review of Systems: All systems reviewed & are unremarkable except as noted in HPI & below Constitutional: + malaise; no fever and no chills Respiratory: + dyspnea; no cough Cardiovascular: + edema; no chest pain and no palpitations Gastrointestinal: + diarrhea/loose stools; no abdominal pain and no con stipation Genitourinary: no dysuria and no hematuria Physical Exam Constitutional: WD/WN, vitals as above Eyes: PERRL, conjunctivae normal, anicteric sclerae ENMT: external ear and nose normal, oropharynx normal Neck: normal visual inspection Respiratory: Good respiratory effort, diffuse wheezes heard throughout, some bibasilar crackles Cardiovascular: Regular rate and rhythm, no appreciable murmurs, 1+ pitting edema bilateral lower extremities Gastrointestinal (Abdomen): normal bowel sounds, soft, nontender, no hepatosplenomegaly Musculoskeletal: no cyanosis or clubbing, extremities motor strength 5/5 Skin: no rashes, warm and dry Neurologic: AAOx3, normal speech. PERRLA, EOMI, no nystagmus. Bilateral UE, LE, and face without sensory or motor deficits. No pronator drift. No tremor. Psychiatric: A+Ox3, euthymic affect Results & Data Results & Data ([facility]) Vital Signs (Past 12 Hours) Vital Signs Temp Pulse Resp BP Pulse Ox 02/08/22 16:30 96 H 22 128/79 02/08/22 16:00 90 27 H 78 L 02/08/22 15:30 92 H 16 96 02/08/22 15:00 93 H 21 96 02/08/22 14:30 91 H 20 02/08/22 14:08 53 L 20 93 02/08/22 14:00 93 02/08/22 13:46 71 L 02/08/22 12:38 36.4 C L 16 154/90 H 97 Supervising Physician Co-Signing Physician Notes Patient seen and examined at bedside. During face to face encounter, obtained a physical examination and history. Patient will be admitted for overflow diarrhea. Antcipate after desimpaction, she should improve. Will continue to monior and continue miralax. I discussed plan of care with patient and Dr. Alfaro. I reviewed above note and agree with it. Resident Activity Tracking Resident Involvement: Resident Care Provided Care Provided: Adult [facility] Medicine (1) Diarrhea Diarrhea type: unspecified type Qualified Code(s): R19.7 - Diarrhea, unspecified (2) Hypothyroid Hypothyroidism type: unspecified Qualified Code(s): E03.9 - Hypothyroidism, unspecified
[2022-02-08] MEDS ORDERED: LEVALBUTEROL HCL 0.63 MG/3 ML NEB NEB STA (18:01)
[2022-02-08] MEDS ORDERED: bisacodyL 10 MG SUPP PR ONE (18:09)
--- NOTE | 2022-02-08 18:15 | Electrocardiogram Report ---
Test Reason : Blood Pressure : / mmHG Vent. Rate : 091 BPM Atrial Rate : 091 BPM P-R Int : 146 ms QRS Dur : 068 ms QT Int : 344 ms P-R-T Axes : 087 007 042 degrees QTc Int : 423 ms Poor data quality, interpretation may be adversely affected Atrial-sensed ventricular-paced rhythm Abnormal ECG When compared with ECG of 07-FEB-2022 15:43, (unconfirmed) Vent. rate has decreased BY 4 BPM Confirmed by Adriano Campa ([id number]) on 02/08/2022 6:15:10 PM Referred By: REFERRED SELF Confirmed By:Elkin Campa
[2022-02-08] MEDS ORDERED: GLUCAGON FOR INJ 1 MG VIAL SQ PRN (20:34)
[2022-02-08] MEDS ORDERED: DEXTROSE 50% 50 ML SYRINGE IV PRN (20:34)
[2022-02-08] MEDS ORDERED: GLUCOSE 40% GEL 15 GM TUBE PO PRN (20:34)
[2022-02-08] MEDS ORDERED: GLUCOSE 10 TABS/TUBE PO PRN (20:34)
[2022-02-08] MEDS ORDERED: ONDANSETRON 4 MG OD TAB PO PRN (20:34)
[2022-02-08] MEDS ORDERED: CARBOHYDRATES FOR HYPOGLYCEMIA PO PRN (20:34)
[2022-02-08] MEDS: FAMOTIDINE 20 MG TAB PO SCH (21:31)
[2022-02-08] MEDS: GABAPENTIN 300 MG CAP PO SCH (21:32)
[2022-02-08] MEDS: OXYBUTYNIN CHLORIDE XL 5 MG TABCR PO SCH (21:32)
[2022-02-08] MEDS: INSULIN ASPART PER UNIT SC SCH (21:32)
[2022-02-08] MEDS: ENOXAPARIN INJ 40 MG/0.4 ML SYR SQ SCH (21:33)
[2022-02-08] MEDS: DOCUSATE SODIUM/SENNA 50/8.6MG TAB PO SCH (21:35)
[2022-02-08] MEDS: POLYETHYLENE (MIRALAX) 17 GM PACK PO SCH (21:35)
[2022-02-08] MEDS: INSULIN GLARGINE SOLOSTAR 100 UNITS/ML 3 ML PEN SC SCH (21:43)
[2022-02-09] MEDS: LEVOTHYROXINE SODIUM 137 MCG TABLET PO SCH (06:23)
[2022-02-09] MEDS ORDERED: PYRIDOSTIGMINE BROMIDE 60 MG TAB PO SCH (08:00)
[2022-02-09] MEDS: PANTOprazole 40 MG TAB PO SCH (08:39)
[2022-02-09] MEDS: lisinopril 10 MG TAB PO SCH (08:39)
[2022-02-09] MEDS: CYANOCOBALAMIN (B-12) 500 MCG TABLET PO SCH (08:39)
[2022-02-09] MEDS: INSULIN ASPART PER UNIT SC SCH ×4 (08:41→21:45)
[2022-02-09 08:44] LABS: Basophils # (auto) 0.02 K/uL (0-0.2); Basophils % (auto) 0.3 %; Eosinophils # (auto) 0.23 K/uL (0-0.5); Eosinophils % (auto) 2.9 %; Hematocrit (blood only) 44.4 % (37-47); Hemoglobin 14.8 g/dL (12.0-16.0); Immature Granulocytes # (auto) 0.01 K/uL (0.00-0.02); Immature Granulocytes % (auto) 0.1 %; Lymphocytes # (auto) 2.15 K/uL (1.2-3.4); Lymphocytes % (auto) 27.3 %; Mean Corpuscular Hgb Conc 33.3 g/dL (32-36); Mean Corpuscular Volume 102.1 fL (80-100); Mean Platelet Volume 10.8 fL (7.4-10.4); Monocytes # (auto) 0.93 K/uL (0.11-0.59); Monocytes % (auto) 11.8 %; Neutrophils # (auto) 4.54 K/uL (1.4-6.5); Neutrophils % (auto) 57.6 %; Platelet Count 189 K/uL (130-400); RDW Coefficient of Variation 13.4 % (11.5-14.5); RDW Standard Deviation 50.4 fL (36.4-46.3); Red Blood Count 4.35 M/uL (4.2-5.4); White Blood Count 7.88 K/uL (4.8-10.8)
[2022-02-09 09:11] LABS: BUN Creatinine Ratio 11.6 (10-20); Calcium 9.2 mg/dl (8.5-10.1); Creatinine Clr Calc Pharmacy 34.7 ml/min; Est GFR (African American) 69.4 ml/min; Est GFR (Non-African American) 59.9 ml/min; Potassium 3.7 mmol/L (3.5-5.1)
[2022-02-09] MEDS: POLYETHYLENE (MIRALAX) 17 GM PACK PO SCH ×2 (09:40→21:19)
[2022-02-09] MEDS: INSULIN GLARGINE SOLOSTAR 100 UNITS/ML 3 ML PEN SC SCH ×2 (09:40→21:46)
[2022-02-09] MEDS: DOCUSATE SODIUM/SENNA 50/8.6MG TAB PO SCH ×2 (09:40→21:19)
[2022-02-09] MEDS ORDERED: Nursing to Pharmacy Communication SCH (11:15)
[2022-02-09] MEDS: PYRIDOSTIGMINE BROMIDE 60 MG TAB PO SCH ×2 (11:33→16:14)
[2022-02-09 12:23] LABS: Appearance Urine Cloudy (Clear); Bacteria Urine Automated Negative (Negative); Bilirubin Urine Negative (Negative); Blood Urine Negative (Negative); Color Urine Dark Yellow; Epithelial Cell Urine Auto >30 /lpf (0-5); Glucose Urine UA Negative (Negative); Ketones Urine 1+ (Negative); Leukocyte Esterase Urine Trace (Negative); Nitrite Urine Negative (Negative); Protein Urine 1+ (Negative); RBC Urine Automated 0-4 /hpf (0-4); Specific Gravity Urine 1.023 (1.000-1.030); Urobilinogen Urine Negative (Negative); pH Urine 5.5 (4.5-7.5)
--- NOTE | 2022-02-09 13:05 | XCELERA ---
[id number] \\[id number]}___[id number]
--- NOTE | 2022-02-09 16:59 | Hospitalist Progress Note ---
Date of Service February 09, 2022 Assessment & Plan (1) Fecal impaction: (2) Diarrhea: (3) Dyspnea: (4) GERD (gastroesophageal reflux disease): (5) CKD (chronic kidney disease) stage 3, GFR 30-59 ml/min: (6) Hypothyroid: (7) HLD (hyperlipidemia): (8) Diabetes mellitus, type 2: (9) Nonischemic cardiomyopathy: (10) Myasthenia gravis, AChR antibody positive: (11) Mixed stress and urge incontinence: (12) Ambulatory dysfunction: Plan: 87-year-old female with past medical history significant for MGUS, osteoporosis, urinary retention, stress incontinence, myasthenia gravis, hypertension, GERD, diabetes, carotid artery stenosis, hyperlipidemia, CKD stage_, chronic constipation admitted for ambulatory dysfunction, poor oral intake, and overflow diarrhea. Overflow diarrhea: Patient with a long standing history of chronic constipation, including a history of stercoral colitis requiring disimpaction and bowel regimen in the past. Per patient she has had several episodes of loose stools over the last several days when usually they are more formed, with some associated nausea and poor oral intake. CTAP performed yesterday for LLQ abdominal pain showed large amount of stool within the rectum with mild rectal wall thickening and adjacent stranding. S/p disimpaction by myself; was able to remove a large volume of stool from the patient's rectum. Will give bisacodyl suppository x1 now, and schedule both MiraLAX and Senokot twice daily. Titrate medications up and and enemas as required. Patient will need a chronic bowel regimen on discharge. Patient has stated to this provider that she would not want colonoscopy or any other kind of procedure at this point in time. Zofran as needed for nausea. On 02/09 Patient has had multiple bowel movements. will contnue current regimen. will continue to monitor her fecal output. will obtain a KUB. Dyspnea: Subjective reports of dyspnea over the last several days. Did have a reading of hypoxia to 78% x1 in ER today, however poor waveform and has been saturating well on room air since that time. CXR without evidence of pulmonary edema, pleural effusion, pneumonia. As patient is having a lot of wheezing on exam, will give Xopenex nebulizer x1. Will also have patient use incentive spirometer. Ambulatory dysfunction: With several days of full body weakness and malaise in the setting of likely viral gastroenteritis as well as severe constipation and stool ball. Has a history of ambulatory dysfunction in the past requiring home health services on discharge. PT and OT orders placed, case management to follow in the event that patient requires home health services versus nursing home facility. Idiopathic nonischemic cardiomyopathy: History of, s/p ICD with improvement in EF from 25% to 60%. No evidence today of pulmonary edema or JVD. No recent echocardiogram on file. Given complaints of dyspnea and increasing peripheral edema will order Echo to evaluate LV function as recommended in last cardiology outpatient note. DM2: Basal/bolus insulin while admitted. Will hold off on low-carb diet at this time as patient's blood sugars have been stable and normal at home and patient is requesting carb-based foods. This decision was made in concert with patient and family as she has not been eating well and would prefer her to have oral intake at this time even if that means things such as mashed potatoes. Myasthenia gravis: Continue pyridostigmine 30mg TID. Hold diphenoxylate given trying to maintain motility for significant constipation. CKD stage III: Baseline creatinine 0.81.1; at baseline on admission. Hypothyroidism: Continue home levothyroxine. GERD: Continue home famotidine and PPI. Mixed urinary incontinence: Continue oxybutynin. HTN: Continue lisinopril. HLD: Continue statin. CODE STATUS: DNR/DNI FEN: Regular minced and moist diet; can switch to DM2 as patient has more intake DVT prophylaxis: Lovenox daily Dispo: Med/Surg Admission and Anticipated Discharge Date Admission Date: February 08, 2022 Subjective Patient reports she continues to have crampy abdominal pain on her right lower quadrant.. She reports multple BMs today. Review of Systems Review of Systems: All systems reviewed & are unremarkable except as noted in HPI & below Physical Exam Physical Exam: Constitutional: WD/WN, vitals as above Eyes: PERRL, conjunctivae normal, anicteric sclerae ENMT: external ear and nose normal, oropharynx normal Neck: normal visual inspection Respiratory: Good respiratory effort, diffuse wheezes heard throughout, some bibasilar crackles Cardiovascular: Regular rate and rhythm, no appreciable murmurs, 1+ pitting edema bilateral lower extremities Gastrointestinal (Abdomen): normal bowel sounds, soft, nontender, no hepatosplenomegaly Musculoskeletal: no cyanosis or clubbing, extremities motor strength 5/5 Skin: no rashes, warm and dry Neurologic: AAOx3, normal speech. PERRLA, EOMI, no nystagmus. Bilateral UE, LE, and face without sensory or motor deficits. No pronator drift. No tremor. Psychiatric: A+Ox3, euthymic affect Results & Data Results & Data ([facility]) Vital Signs (Past 12 Hours) Vital Signs Temp Pulse Resp BP Pulse Ox 02/09/22 16:23 36.4 C L 78 18 108/70 90 02/09/22 07:11 36.8 C 95 H 18 145/80 H 90 PG Care Time/CCT Total # of Minutes Spent Total Time Spent with Patient: Total time spent is greater than 50% in coordination of care (as documented) at patient's floor/unit and/or counseling patient: Coding Level of Care Code 78439 Subseq Hosp Care Lvl 2 Diagnoses Fecal impaction K56.41 Diarrhea R19.7 Diarrhea type: unspecified type Dyspnea R06.00 GERD (gastroesophageal reflux disease) K21.9 CKD (chronic kidney disease) stage 3, GFR 30-59 ml/min N18.3 Hypothyroid E03.9 Hypothyroidism type: unspecified HLD (hyperlipidemia) E78.5 Diabetes mellitus, type 2 E11.9 Nonischemic cardiomyopathy I42.8 Myasthenia gravis, AChR antibody positive G70.00 Mixed stress and urge incontinence N39.46 Ambulatory dysfunction R26.2 Time Spent (min) 25 (1) Diarrhea Diarrhea type: unspecified type Qualified Code(s): R19.7 - Diarrhea, unspecified (2) Hypothyroid Hypothyroidism type: unspecified Qualified Code(s): E03.9 - Hypothyroidism, unspecified
[2022-02-09] MEDS: FAMOTIDINE 20 MG TAB PO SCH (21:21)
[2022-02-09] MEDS: GABAPENTIN 300 MG CAP PO SCH (21:21)
[2022-02-09] MEDS: OXYBUTYNIN CHLORIDE XL 5 MG TABCR PO SCH (21:21)
[2022-02-09] MEDS: ENOXAPARIN INJ 40 MG/0.4 ML SYR SQ SCH (21:22)
[2022-02-10] MEDS: PYRIDOSTIGMINE BROMIDE 60 MG TAB PO SCH ×3 (06:02→16:19)
[2022-02-10] MEDS: LEVOTHYROXINE SODIUM 137 MCG TABLET PO SCH (06:03)
--- NOTE | 2022-02-10 07:08 | XRay Report ---
XR KUB/Abdomen 1 view CLINICAL HISTORY: abdominal pain. COMPARISON STUDY: 02/08/2022 TECHNIQUE: Single view of the abdomen. FINDINGS: Compared to previous examination, there is interval decrease of stool burden. No significant fecal im paction with fecal stasis is identified. No bowel dilatation or obstruction is identified. There is n o evidence for organomegaly or gross intra-abdominal mass. No abnormal calcifications are seen along the course of the urinary tracts bilaterally. No acute osseous pathology. IMPRESSION: 1. No acute intra-abdominal abnormality. Interval decrease in stool burden with no fecal impaction or obstruction identified. ACT 112: Negative or not required by law. Electronically signed by: Juan Antonio Blanchard M.D. 02/10/2022 7:06 AM
[2022-02-10] MEDS: PANTOprazole 40 MG TAB PO SCH (08:24)
[2022-02-10] MEDS: CYANOCOBALAMIN (B-12) 500 MCG TABLET PO SCH (08:24)
[2022-02-10] MEDS: lisinopril 10 MG TAB PO SCH (08:24)
[2022-02-10] MEDS: POLYETHYLENE (MIRALAX) 17 GM PACK PO SCH ×2 (08:24→21:53)
[2022-02-10] MEDS: DOCUSATE SODIUM/SENNA 50/8.6MG TAB PO SCH ×2 (08:24→21:50)
[2022-02-10] MEDS: INSULIN GLARGINE SOLOSTAR 100 UNITS/ML 3 ML PEN SC SCH ×2 (08:25→22:01)
[2022-02-10] MEDS: INSULIN ASPART PER UNIT SC SCH ×4 (08:32→22:01)
[2022-02-10 10:29] LABS: Hematocrit (blood only) 43.5 % (37-47); Hemoglobin 14.5 g/dL (12.0-16.0); Mean Corpuscular Hemoglobin 34.2 pg (25-34); Mean Corpuscular Hgb Conc 33.3 g/dL (32-36); Mean Corpuscular Volume 102.6 fL (80-100); Mean Platelet Volume 10.6 fL (7.4-10.4); Platelet Count 196 K/uL (130-400); RDW Coefficient of Variation 13.5 % (11.5-14.5); RDW Standard Deviation 50.8 fL (36.4-46.3); Red Blood Count 4.24 M/uL (4.2-5.4); White Blood Count 8.53 K/uL (4.8-10.8)
[2022-02-10 11:17] LABS: Calcium 9.3 mg/dl (8.5-10.1); Creatinine Clr Calc Pharmacy 18.3 ml/min; Est GFR (Non-African American) 27.6 ml/min
--- NOTE | 2022-02-10 14:20 | Hospitalist Progress Note ---
Date of Service February 10, 2022 Assessment & Plan (1) Fecal impaction: (2) Diarrhea: (3) Dyspnea: (4) GERD (gastroesophageal reflux disease): (5) CKD (chronic kidney disease) stage 3, GFR 30-59 ml/min: (6) Hypothyroid: (7) HLD (hyperlipidemia): (8) Diabetes mellitus, type 2: (9) Nonischemic cardiomyopathy: (10) Myasthenia gravis, AChR antibody positive: (11) Mixed stress and urge incontinence: (12) Ambulatory dysfunction: Plan: 87-year-old female with past medical history significant for MGUS, osteoporosis, urinary retention, stress incontinence, myasthenia gravis, hypertension, GERD, diabetes, carotid artery stenosis, hyperlipidemia, CKD stage_, chronic constipation admitted for ambulatory dysfunction, poor oral intake, and overflow diarrhea. Overflow diarrhea: Patient with a long standing history of chronic constipation, including a history of stercoral colitis requiring disimpaction and bowel regimen in the past. Per patient she has had several episodes of loose stools over the last several days when usually they are more formed, with some associated nausea and poor oral intake. CTAP performed yesterday for LLQ abdominal pain showed large amount of stool within the rectum with mild rectal wall thickening and adjacent stranding. S/p disimpaction on 02/08; was able to remove a large volume of stool from the patient's rectum. will continue both MiraLAX and Senokot twice daily. Patient will need a chronic bowel regimen on discharge. Patient has stated to this provider that she would not want colonoscopy or any other kind of procedure at this point in time. Zofran as needed for nausea. Dyspnea: Subjective reports of dyspnea over the last several days. Did have a reading of hypoxia to 78% x1 in ER today, however poor waveform and has been saturating well on room air since that time. CXR without evidence of pulmonary edema, pleural effusion, pneumonia. As patient is having a lot of wheezing on exam, will give Xopenex nebulizer x1. Will also have patient use incentive spirometer. Ambulatory dysfunction: With several days of full body weakness and malaise in the setting of likely viral gastroenteritis as well as severe constipation and stool ball. Has a history of ambulatory dysfunction in the past requiring home health ser vices on discharge. PT and OT orders placed, case management to follow in the event that patient requires home health services versus custodial facility. Idiopathic nonischemic cardiomyopathy: History of, s/p ICD with improvement in EF from 25% to 60%. No evidence today of pulmonary edema or JVD. No recent echocardiogram on file. Given complaints of dyspnea and increasing peripheral edema will order Echo to evaluate LV function as recommended in last cardiology outpatient note. DM2: Basal/bolus insulin while admitted. Will hold off on low-carb diet at this time as patient's blood sugars have been stable and normal at home and patient is requesting carb-based foods. This decision was made in concert with patient and family as she has not been eating well and would prefer her to have oral intake at this time even if that means things such as mashed potatoes. Myasthenia gravis: Continue pyridostigmine 30mg TID. Hold diphenoxylate given trying to maintain motility for significant constipation. CKD stage III: Baseline creatinine 0.81.1; at baseline on admission. Hypothyroidism: Continue home levothyroxine. GERD: Continue home famotidine and PPI. Mixed urinary incontinence: Continue oxybutynin. HTN: Continue lisinopril. HLD: Continue statin. CODE STATUS: DNR/DNI FEN: Regular minced and moist diet; can switch to DM2 as patient has more intake DVT prophylaxis: Lovenox daily Dispo: Med/Surg Admission and Anticipated Discharge Date Admission Date: February 09, 2022 Subjective Patient reports feeling better. She has no new complaints. Patient reports mild abdominal pain. Review of Systems Review of Systems: All systems reviewed & are unremarkable except as noted in HPI & below Physical Exam Physical Exam: Constitutional: WD/WN, vitals as above Eyes: PERRL, conjunctivae normal, anicteric sclerae ENMT: external ear and nose normal, oropharynx normal Neck: normal visual inspection Respiratory: Good respiratory effort, diffuse wheezes heard throughout, some bibasilar crackles Cardiovascular: Regular rate and rhythm, no appreciable murmurs, 1+ pitting edema bilateral lower extremities Gastrointestinal (Abdomen): normal bowel sounds, soft, nontender, no hepatosplenomegaly Musculoskeletal: no cyanosis or clubbing, extremities motor strength 5/5 Skin: no rashes, warm and dry Neurologic: AAOx3, normal speech. PERRLA, EOMI, no nystagmus. Bilateral UE, LE, and face without sensory or motor deficits. No pronator drift. No tremor. Psychiatric: A+Ox3, euthymic affect Results & Data Results & Data ([facility]) Vital Signs (Past 12 Hours) Vital Signs Temp Pulse Resp BP Pulse Ox 02/10/22 08:25 36.8 C 79 18 100/63 92 PG Care Time/CCT Total # of Minutes Spent Total Time Spent with Patient: Total time spent is greater than 50% in coordination of care (as documented) at patient's floor/unit and/or counseling patient: Coding Level of Care Code 75911 Subseq Hosp Care Lvl 2 Diagnoses Fecal impaction K56.41 Diarrhea R19.7 Diarrhea type: unspecified type Dyspnea R06.00 GERD (gastroesophageal reflux disease) K21.9 CKD (chronic kidney disease) stage 3, GFR 30-59 ml/min N18.3 Hypothyroid E03.9 Hypothyroidism type: unspecified HLD (hyperlipidemia) E78.5 Diabetes mellitus, type 2 E11.9 Nonischemic cardiomyopathy I42.8 Myasthenia gravis, AChR antibody positive G70.00 Mixed stress and urge incontinence N39.46 Ambulatory dysfunction R26.2 (1) Diarrhea Diarrhea type: unspecified type Qualified Code(s): R19.7 - Diarrhea, unspecified (2) Hypothyroid Hypothyroidism type: unspecified Qualified Code(s): E03.9 - Hypothyroidism, unspecified
--- NOTE | 2022-02-10 14:30 | Billing Data ---
Date of Service February 08, 2022 Coding Level of Care Code 67973 Initial Inpt Care Lvl 3
[2022-02-10] MEDS ORDERED: ENOXAPARIN INJ 30 MG/0.3 ML SYR SQ SCH (21:00)
[2022-02-10] MEDS: OXYBUTYNIN CHLORIDE XL 5 MG TABCR PO SCH (21:50)
[2022-02-10] MEDS: GABAPENTIN 300 MG CAP PO SCH (21:50)
[2022-02-10] MEDS: FAMOTIDINE 20 MG TAB PO SCH (21:50)
[2022-02-11] MEDS: LEVOTHYROXINE SODIUM 137 MCG TABLET PO SCH (05:24)
[2022-02-11] MEDS: ALENDRONATE SODIUM 70 MG TAB PO SCH (06:15)
[2022-02-11] MEDS: PYRIDOSTIGMINE BROMIDE 60 MG TAB PO SCH ×3 (07:46→16:33)
[2022-02-11] MEDS: lisinopril 10 MG TAB PO SCH (08:59)
[2022-02-11] MEDS: POLYETHYLENE (MIRALAX) 17 GM PACK PO SCH ×2 (08:59→20:53)
[2022-02-11] MEDS: DOCUSATE SODIUM/SENNA 50/8.6MG TAB PO SCH ×2 (08:59→20:51)
[2022-02-11] MEDS: CYANOCOBALAMIN (B-12) 500 MCG TABLET PO SCH (09:00)
[2022-02-11] MEDS: PANTOprazole 40 MG TAB PO SCH (09:00)
[2022-02-11] MEDS: INSULIN ASPART PER UNIT SC SCH ×4 (09:05→21:11)
[2022-02-11] MEDS: INSULIN GLARGINE SOLOSTAR 100 UNITS/ML 3 ML PEN SC SCH ×2 (09:05→21:11)
[2022-02-11 11:04] LABS: Hematocrit (blood only) 39.9 % (37-47); Hemoglobin 13.2 g/dL (12.0-16.0); Mean Corpuscular Hemoglobin 33.3 pg (25-34); Mean Corpuscular Hgb Conc 33.1 g/dL (32-36); Mean Corpuscular Volume 100.8 fL (80-100); Mean Platelet Volume 10.5 fL (7.4-10.4); Platelet Count 184 K/uL (130-400); RDW Coefficient of Variation 13.3 % (11.5-14.5); RDW Standard Deviation 49.6 fL (36.4-46.3); Red Blood Count 3.96 M/uL (4.2-5.4)
[2022-02-11 11:36] LABS: BUN Creatinine Ratio 16.2 (10-20); Calcium 9.1 mg/dl (8.5-10.1); Est GFR (African American) 37.9 ml/min; Est GFR (Non-African American) 32.7 ml/min; Potassium 3.9 mmol/L (3.5-5.1)
--- NOTE | 2022-02-11 14:52 | Hospitalist Progress Note ---
Date of Service February 11, 2022 Assessment & Plan (1) Fecal impaction: (2) Diarrhea: (3) Dyspnea: (4) GERD (gastroesophageal reflux disease): (5) CKD (chronic kidney disease) stage 3, GFR 30-59 ml/min: (6) Hypothyroid: (7) HLD (hyperlipidemia): (8) Diabetes mellitus, type 2: (9) Nonischemic cardiomyopathy: (10) Myasthenia gravis, AChR antibody positive: (11) Mixed stress and urge incontinence: (12) Ambulatory dysfunction: Plan: 87-year-old female with past medical history significant for MGUS, osteoporosis, urinary retention, stress incontinence, myasthenia gravis, hypertension, GERD, diabetes, carotid artery stenosis, hyperlipidemia, CKD stage_, chronic constipation admitted for ambulatory dysfunction, poor oral intake, and overflow diarrhea. Overflow diarrhea: Patient with a long standing history of chronic constipation, including a history of stercoral colitis requiring disimpaction and bowel regimen in the past. Per patient she has had several episodes of loose stools over the last several days when usually they are more formed, with some associated nausea and poor oral intake. CTAP performed yesterday for LLQ abdominal pain showed large amount of stool within the rectum with mild rectal wall thickening and adjacent stranding. S/p disimpaction on 02/08; was able to remove a large volume of stool from the patient's rectum. will continue both MiraLAX and Senokot twice daily. Patient will need a chronic bowel regimen on discharge. Patient has stated to this provider that she would not want colonoscopy or any other kind of procedure at this point in time. Zofran as needed for nausea. Appears to have improved on 02/11 Dyspnea: Subjective reports of dyspnea over the last several days. Did have a reading of hypoxia to 78% x1 in ER today, however poor waveform and has been saturating well on room air since that time. CXR without evidence of pulmonary edema, pleural effusion, pneumonia. As patient is having a lot of wheezing on exam, will give Xopenex nebulizer x1. Will also have patient use incentive spirometer. Ambulatory dysfunction: With several days of full body weakness and malaise in the setting of likely viral gastroenteritis as well as severe constipation and stool ball. Has a history of ambulatory dysfunction in the past requiring home health services on discharge. PT and OT orders placed, case management to follow in the event that patient requires home health services versus retirement facility. PT recommends SNF Idiopathic nonischemic cardiomyopathy: History of, s/p ICD with improvement in EF from 25% to 60%. No evidence today of pulmonary edema or JVD. No recent echocardiogram on file. Given complaints of dyspnea and increasing peripheral edema will order Echo to evaluate LV function as recommended in last cardiology outpatient note. DM2: Basal/bolus insulin while admitted. Will hold off on low-carb diet at this time as patient's blood sugars have been stable and normal at home and patient is requesting carb-based foods. This decision was made in concert with patient and family as she has not been eating well and would prefer her to have oral intake at this time even if that means things such as mashed potatoes. Myasthenia gravis: Continue pyridostigmine 30mg TID. Hold diphenoxylate given trying to maintain motility for significant constipation. CKD stage III: Baseline creatinine 0.81.1; at baseline on admission. Hypothyroidism: Continue home levothyroxine. GERD: Continue home famotidine and PPI. Mixed urinary incontinence: Continue oxybutynin. HTN: Continue lisinopril. HLD: Continue statin. CODE STATUS: DNR/DNI FEN: Regular minced and moist diet; can switch to DM2 as patient has more intake DVT prophylaxis: Lovenox daily Dispo: Med/Surg Admission and Anticipated Discharge Date Admission Date: February 09, 2022 Subjective 87 yo female reports no new symptoms. Review of Systems Review of Systems: All systems reviewed & are unremarkable except as noted in HPI & below Physical Exam Physical Exam: Constitutional: WD/WN, vitals as above Eyes: PERRL, conjunctivae normal, anicteric sclerae ENMT: external ear and nose normal, oropharynx normal Neck: normal visual inspection Respiratory: Good respiratory effort, improved breath sounds. Cardiovascular: Regular rate and rhythm, no appreciable murmurs, 1+ pitting edema bilateral lower extremities Gastrointestinal (Abdomen): normal bowel sounds, soft, nontender, no hepatosplenomegaly Musculoskeletal: no cyanosis or clubbing, extremities motor strength 5/5 Skin: no rashes, warm and dry; small slightly raised erythematous lesion noted in the midline on the superior thoracic spine. Neurologic: AAOx3, normal speech. PERRLA, EOMI, no nystagmus. Bilateral UE, LE, and face without sensory or motor deficits. No pronator drift. No tremor. Psychiatric: A+Ox3, euthymic affect Results & Data Results & Data ([facility]) Vital Signs (Past 12 Hours) Vital Signs Temp Pulse Resp BP Pulse Ox 02/11/22 14:47 36.7 C 81 16 111/72 92 02/11/22 07:39 36.7 C 72 16 106/59 L 95 PG Care Time/CCT Total # of Minutes Spent Total Time Spent with Patient: Total time spent is greater than 50% in coordination of care (as documented) at patient's floor/unit and/or counseling patient: Coding Level of Care Code 10543 Subseq Hosp Care Lvl 2 Diagnoses Fecal impaction K56.41 Diarrhea R19.7 Diarrhea type: unspecified type Dyspnea R06.00 GERD (gastroesophageal reflux disease) K21.9 CKD (chronic kidney disease) stage 3, GFR 30-59 ml/min N18.3 Hypothyroid E03.9 Hypothyroidism type: unspecified HLD (hyperlipidemia) E78.5 Diabetes mellitus, type 2 E11.9 Nonischemic cardiomyopathy I42.8 Myasthenia gravis, AChR antibody positive G70.00 Mixed stress and urge incontinence N39.46 Ambulatory dysfunction R26.2 (1) Diarrhea Diarrhea type: unspecified type Qualified Code(s): R19.7 - Diarrhea, unspecified (2) Hypothyroid Hypothyroidism type: unspecified Qualified Code(s): E03.9 - Hypothyroidism, unspecified
[2022-02-11] MEDS: GABAPENTIN 300 MG CAP PO SCH (20:52)
[2022-02-11] MEDS: FAMOTIDINE 20 MG TAB PO SCH (20:52)
[2022-02-11] MEDS: OXYBUTYNIN CHLORIDE XL 5 MG TABCR PO SCH (20:52)
[2022-02-11] MEDS: HEPARIN SOD 5,000 UNIT/0.5 ML VIAL SC SCH (20:53)
[2022-02-12] MEDS: LEVOTHYROXINE SODIUM 137 MCG TABLET PO SCH (05:09)
[2022-02-12] MEDS: PYRIDOSTIGMINE BROMIDE 60 MG TAB PO SCH ×3 (06:03→16:09)
[2022-02-12 07:32] LABS: Hematocrit (blood only) 39.6 % (37-47); Hemoglobin 13.2 g/dL (12.0-16.0); Mean Corpuscular Hemoglobin 33.2 pg (25-34); Mean Corpuscular Hgb Conc 33.3 g/dL (32-36); Mean Corpuscular Volume 99.5 fL (80-100); Mean Platelet Volume 10.8 fL (7.4-10.4); Platelet Count 195 K/uL (130-400); RDW Coefficient of Variation 13.4 % (11.5-14.5); RDW Standard Deviation 48.9 fL (36.4-46.3); Red Blood Count 3.98 M/uL (4.2-5.4); White Blood Count 7.17 K/uL (4.8-10.8)
[2022-02-12 07:53] LABS: BUN Creatinine Ratio 19.1 (10-20); Calcium 9.1 mg/dl (8.5-10.1); Est GFR (African American) 48.9 ml/min; Est GFR (Non-African American) 42.2 ml/min
[2022-02-12] MEDS: CYANOCOBALAMIN (B-12) 500 MCG TABLET PO SCH (09:29)
[2022-02-12] MEDS: DOCUSATE SODIUM/SENNA 50/8.6MG TAB PO SCH ×2 (09:29→20:55)
[2022-02-12] MEDS: lisinopril 10 MG TAB PO SCH (09:29)
[2022-02-12] MEDS: PANTOprazole 40 MG TAB PO SCH (09:30)
[2022-02-12] MEDS: POLYETHYLENE (MIRALAX) 17 GM PACK PO SCH ×2 (09:30→20:57)
[2022-02-12] MEDS: HEPARIN SOD 5,000 UNIT/0.5 ML VIAL SC SCH ×2 (09:33→20:54)
[2022-02-12] MEDS: INSULIN ASPART PER UNIT SC SCH ×4 (09:39→20:47)
[2022-02-12] MEDS: INSULIN GLARGINE SOLOSTAR 100 UNITS/ML 3 ML PEN SC SCH ×2 (09:39→20:50)
[2022-02-12] MEDS: OXYBUTYNIN CHLORIDE XL 5 MG TABCR PO SCH (20:55)
[2022-02-12] MEDS: FAMOTIDINE 20 MG TAB PO SCH (20:55)
[2022-02-12] MEDS: GABAPENTIN 300 MG CAP PO SCH (20:55)
[2022-02-12] MEDS: ACETAMINOPHEN 325 MG TAB PO PRN (21:12)
--- NOTE | 2022-02-12 21:12 | Hospitalist Progress Note ---
Date of Service February 12, 2022 Assessment & Plan (1) Fecal impaction: (2) Diarrhea: (3) Dyspnea: (4) GERD (gastroesophageal reflux disease): (5) CKD (chronic kidney disease) stage 3, GFR 30-59 ml/min: (6) Hypothyroid: (7) HLD (hyperlipidemia): (8) Diabetes mellitus, type 2: (9) Nonischemic cardiomyopathy: (10) Myasthenia gravis, AChR antibody positive: (11) Mixed stress and urge incontinence: (12) Ambulatory dysfunction: Plan: 87-year-old female with past medical history significant for MGUS, osteoporosis, urinary retention, stress incontinence, myasthenia gravis, hypertension, GERD, diabetes, carotid artery stenosis, hyperlipidemia, CKD stage_, chronic constipation admitted for ambulatory dysfunction, poor oral intake, and overflow diarrhea. Overflow diarrhea: Patient with a long standing history of chronic constipation, including a history of stercoral colitis requiring disimpaction and bowel regimen in the past. Per patient she has had several episodes of loose stools over the last several days when usually they are more formed, with some associated nausea and poor oral intake. CTAP performed yesterday for LLQ abdominal pain showed large amount of stool within the rectum with mild rectal wall thickening and adjacent stranding. S/p disimpaction on 02/08; was able to remove a large volume of stool from the patient's rectum. will continue both MiraLAX and Senokot twice daily. Patient will need a chronic bowel regimen on discharge. Patient has stated to this provider that she would not want colonoscopy or any other kind of procedure at this point in time. Zofran as needed for nausea. Appears to have improved on 02/12 awaiting placement Dyspnea: Subjective reports of dyspnea over the last several days. Did have a reading of hypoxia to 78% x1 in ER today, however poor waveform and has been saturating well on room air since that time. CXR without evidence of pulmonary edema, pleural effusion, pneumonia. As patient is having a lot of wheezing on exam, will give Xopenex nebulizer x1. Will also have patient use incentive spirometer. Ambulatory dysfunction: With several days of full body weakness and malaise in the setting of likely viral gastroenteritis as well as severe constipation and stool ball. Has a history of ambulatory dysfunction in the past requiring home health services on discharge. PT and OT orders placed, case management to follow in the event that patient requires home health services versus custodial facility. PT recommends SNF Idiopathic nonischemic cardiomyopathy: History of, s/p ICD with improvement in EF from 25% to 60%. No evidence today of pulmonary edema or JVD. No recent echocardiogram on file. Given complaints of dyspnea and increasing peripheral edema will order Echo to evaluate LV function as recommended in last cardiology outpatient note. DM2: Basal/bolus insulin while admitted. Will hold off on low-carb diet at this time as patient's blood sugars have been stable and normal at home and patient is requesting carb-based foods. This decision was made in concert with patient and family as she has not been eating well and would prefer her to have oral intake at this time even if that means things such as mashed potatoes. Myasthenia gravis: Continue pyridostigmine 30mg TID. Hold diphenoxylate given trying to maintain motility for significant constipation. CKD stage III: Baseline creatinine 0.81.1; at baseline on admission. Hypothyroidism: Continue home levothyroxine. GERD: Continue home famotidine and PPI. Mixed urinary incontinence: Continue oxybutynin. HTN: Continue lisinopril. HLD: Continue statin. CODE STATUS: DNR/DNI FEN: Regular minced and moist diet; can switch to DM2 as patient has more intake DVT prophylaxis: Lovenox daily Dispo: Med/Surg Admission and Anticipated Discharge Date Admission Date: February 09, 2022 Subjective Patient denies any new symptoms today. Review of Systems Review of Systems: All systems reviewed & are unremarkable except as noted in HPI & below Physical Exam Physical Exam: Constitutional: WD/WN, vitals as above Eyes: PERRL, conjunctivae normal, anicteric sclerae ENMT: external ear and nose normal, oropharynx normal Neck: normal visual inspection Respiratory: Good respiratory effort, improved breath sounds. Cardiovascular: Regular rate and rhythm, no appreciable murmurs, 1+ pitting edema bilateral lower extremities Gastrointestinal (Abdomen): normal bowel sounds, soft, nontender, no hepatosplenomegaly Musculoskeletal: no cyanosis or clubbing, extremities motor strength 5/5 Skin: no rashes, warm and dry; small slightly raised erythematous lesion noted in the midline on the superior thoracic spine. Lesion appears less erythematous today. Neurologic: AAOx3, normal speech. PERRLA, EOMI, no nystagmus. Bilateral UE, LE, and face without sensory or motor deficits. No pronator drift. No tremor. Psychiatric: A+Ox3, euthymic affect Results & Data Results & Data ([facility]) Vital Signs (Past 12 Hours) Vital Signs Temp Pulse Resp BP BP Pulse Ox 02/12/22 15:27 36.3 C L 74 16 114/70 92 02/12/22 09:27 79 119/75 PG Care Time/CCT Total # of Minutes Spent Total Time Spent with Patient: Total time spent is greater than 50% in coordination of care (as documented) at patient's floor/unit and/or counseling patient: Coding Level of Care Code 96144 Subseq Hosp Care Lvl 2 Diagnoses Fecal impaction K56.41 Diarrhea R19.7 Diarrhea type: unspecified type Dyspnea R06.00 GERD (gastroesophageal reflux disease) K21.9 CKD (chronic kidney disease) stage 3, GFR 30-59 ml/min N18.3 Hypothyroid E03.9 Hypothyroidism type: unspecified HLD (hyperlipidemia) E78.5 Diabetes mellitus, type 2 E11.9 Nonischemic cardiomyopathy I42.8 Myasthenia gravis, AChR antibody positive G70.00 Mixed stress and urge incontinence N39.46 Ambulatory dysfunction R26.2 (1) Diarrhea Diarrhea type: unspecified type Qualified Code(s): R19.7 - Diarrhea, unspecified (2) Hypothyroid Hypothyroidism type: unspecified Qualified Code(s): E03.9 - Hypothyroidism, unspecified
[2022-02-13] MEDS: ACETAMINOPHEN 325 MG TAB PO PRN ×2 (02:47→22:06)
[2022-02-13] MEDS: PYRIDOSTIGMINE BROMIDE 60 MG TAB PO SCH ×3 (05:49→15:30)
[2022-02-13] MEDS: LEVOTHYROXINE SODIUM 137 MCG TABLET PO SCH (05:50)
[2022-02-13 05:59] LABS: Hematocrit (blood only) 41.6 % (37-47); Hemoglobin 13.4 g/dL (12.0-16.0); Mean Corpuscular Hemoglobin 32.4 pg (25-34); Mean Corpuscular Hgb Conc 32.2 g/dL (32-36); Mean Corpuscular Volume 100.5 fL (80-100); Mean Platelet Volume 10.5 fL (7.4-10.4); Platelet Count 182 K/uL (130-400); RDW Coefficient of Variation 13.3 % (11.5-14.5); RDW Standard Deviation 48.9 fL (36.4-46.3); Red Blood Count 4.14 M/uL (4.2-5.4); White Blood Count 6.59 K/uL (4.8-10.8)
[2022-02-13 06:25] LABS: BUN Creatinine Ratio 19.6 (10-20); Calcium 9.2 mg/dl (8.5-10.1); Creatinine Clr Calc Pharmacy 32.5 ml/min; Est GFR (Non-African American) 55.2 ml/min; Potassium 3.7 mmol/L (3.5-5.1)
[2022-02-13] MEDS: CYANOCOBALAMIN (B-12) 500 MCG TABLET PO SCH (09:47)
[2022-02-13] MEDS: PANTOprazole 40 MG TAB PO SCH (09:47)
[2022-02-13] MEDS: DOCUSATE SODIUM/SENNA 50/8.6MG TAB PO SCH ×2 (09:47→21:00)
[2022-02-13] MEDS: lisinopril 10 MG TAB PO SCH (09:48)
[2022-02-13] MEDS: POLYETHYLENE (MIRALAX) 17 GM PACK PO SCH ×2 (09:48→21:01)
[2022-02-13] MEDS: HEPARIN SOD 5,000 UNIT/0.5 ML VIAL SC SCH ×2 (09:49→21:00)
[2022-02-13] MEDS: INSULIN GLARGINE SOLOSTAR 100 UNITS/ML 3 ML PEN SC SCH ×2 (10:07→21:02)
[2022-02-13] MEDS: INSULIN ASPART PER UNIT SC SCH ×4 (10:07→21:01)
[2022-02-13] MEDS: GABAPENTIN 300 MG CAP PO SCH (20:59)
[2022-02-13] MEDS: FAMOTIDINE 20 MG TAB PO SCH (20:59)
[2022-02-13] MEDS: OXYBUTYNIN CHLORIDE XL 5 MG TABCR PO SCH (20:59)
--- NOTE | 2022-02-13 21:15 | Hospitalist Progress Note ---
Date of Service February 13, 2022 Assessment & Plan (1) Fecal impaction: (2) Diarrhea: (3) Dyspnea: (4) GERD (gastroesophageal reflux disease): (5) CKD (chronic kidney disease) stage 3, GFR 30-59 ml/min: (6) Hypothyroid: (7) HLD (hyperlipidemia): (8) Diabetes mellitus, type 2: (9) Nonischemic cardiomyopathy: (10) Myasthenia gravis, AChR antibody positive: (11) Mixed stress and urge incontinence: (12) Ambulatory dysfunction: Plan: 87-year-old female with past medical history significant for MGUS, osteoporosis, urinary retention, stress incontinence, myasthenia gravis, hypertension, GERD, diabetes, carotid artery stenosis, hyperlipidemia, CKD stage_, chronic constipation admitted for ambulatory dysfunction, poor oral intake, and overflow diarrhea. Overflow diarrhea: Patient with a long standing history of chronic constipation, including a history of stercoral colitis requiring disimpaction and bowel regimen in the past. Per patient she has had several episodes of loose stools over the last several days when usually they are more formed, with some associated nausea and poor oral intake. CTAP performed yesterday for LLQ abdominal pain showed large amount of stool within the rectum with mild rectal wall thickening and adjacent stranding. S/p disimpaction on 02/08; was able to remove a large volume of stool from the patient's rectum. will continue both MiraLAX and Senokot twice daily. Patient will need a chronic bowel regimen on discharge. Patient has stated to this provider that she would not want colonoscopy or any other kind of procedure at this point in time. Zofran as needed for nausea. Appears to have improved on 02/11 No changes on the past 24-48 h awaiting placement DAVONTE on CKD 3 87-year-old female with a history of CKD stage III presents with fecal impaction and diarrhea. Review of the EMR reveals that this patient has an approximate baseline creatinine of 1.00. On presentation this patient had a creatinine of 1.63 and an estimated GFR of 27.6 Risk Factor(s): Age. CKD, diarrhea, fecal impaction Treatment: Daily PRP's, fecal disimpaction, This appears to have resolved. Dyspnea: Subjective reports of dyspnea over the last several days. Did have a reading of hypoxia to 78% x1 in ER today, however poor waveform and has been saturating well on room air since that time. CXR without evidence of pulmonary edema, pleural effusion, pneumonia. appears to have resolved. Ambulatory dysfunction: With several days of full body weakness and malaise in the setting of likely viral gastroenteritis as well as severe constipation and stool ball. Has a history of ambulatory dysfunction in the past requiring home health services on discharge. PT and OT orders placed, case management to follow in the event that patient requires home health services versus intermediate facility. PT recommends SNF Idiopathic nonischemic cardiomyopathy: History of, s/p ICD with improvement in EF from 25% to 60%. No evidence today of pulmonary edema or JVD. No recent echocardiogram on file. Given complaints of dyspnea and increasing peripheral edema will order Echo to evaluate LV function as recommended in last cardiology outpatient note. DM2: Basal/bolus insulin while admitted. Will hold off on low-carb diet at this time as patient's blood sugars have been stable and normal at home and patient is requesting carb-based foods. This decision was made in concert with patient and family as she has not been eating well and would prefer her to have oral intake at this time even if that means things such as mashed potatoes. Myasthenia gravis: Continue pyridostigmine 30mg TID. Hold diphenoxylate given trying to maintain motility for significant constipation. CKD stage III: Baseline creatinine 0.81.1; at baseline on admission. Hypothyroidism: Continue home levothyroxine. GERD: Continue home famotidine and PPI. Mixed urinary incontinence: Continue oxybutynin. HTN: Continue lisinopril. HLD: Continue statin. CODE STATUS: DNR/DNI DVT prophylaxis: Lovenox daily Dispo: Med/Surg Admission and Anticipated Discharge Date Admission Date: February 09, 2022 Subjective Patient reports no new symptoms. Patient is awaiting placement. Review of Systems Review of Systems: All systems reviewed & are unremarkable except as noted in HPI & below Physical Exam Physical Exam: Constitutional: WD/WN, vitals as above Eyes: PERRL, conjunctivae normal, anicteric sclerae ENMT: external ear and nose normal, oropharynx normal Neck: normal visual inspection Respiratory: Good respiratory effort, improved breath sounds. Cardiovascular: Regular rate and rhythm, no appreciable murmurs, 1+ pitting edema bilateral lower extremities Gastrointestinal (Abdomen): normal bowel sounds, soft, nontender, no h epatosplenomegaly Musculoskeletal: no cyanosis or clubbing, extremities motor strength 5/5 Skin: no rashes, warm and dry; small slightly raised erythematous lesion noted in the midline on the superior thoracic spine. Lesion appears be healing well over past 2 days Neurologic: AAOx3, normal speech. PERRLA, EOMI, no nystagmus. Bilateral UE, LE, and face without sensory or motor deficits. No pronator drift. No tremor. Psychiatric: A+Ox3, euthymic affect Results & Data Results & Data ([facility]) Vital Signs (Past 12 Hours) Vital Signs Temp Pulse Resp BP Pulse Ox 02/13/22 15:50 36.8 C 69 18 141/83 H 95 02/13/22 09:46 145/81 H PG Care Time/CCT Total # of Minutes Spent Total Time Spent with Patient: Total time spent is greater than 50% in coordination of care (as documented) at patient's floor/unit and/or counseling patient: Coding Level of Care Code 76639 Subseq Hosp Care Lvl 2 Diagnoses Fecal impaction K56.41 Diarrhea R19.7 Diarrhea type: unspecified type Dyspnea R06.00 GERD (gastroesophageal reflux disease) K21.9 CKD (chronic kidney disease) stage 3, GFR 30-59 ml/min N18.3 Hypothyroid E03.9 Hypothyroidism type: unspecified HLD (hyperlipidemia) E78.5 Diabetes mellitus, type 2 E11.9 Nonischemic cardiomyopathy I42.8 Myasthenia gravis, AChR antibody positive G70.00 Mixed stress and urge incontinence N39.46 Ambulatory dysfunction R26.2 (1) Diarrhea Diarrhea type: unspecified type Qualified Code(s): R19.7 - Diarrhea, unspecified (2) Hypothyroid Hypothyroidism type: unspecified Qualified Code(s): E03.9 - Hypothyroidism, unspecified
[2022-02-14] MEDS: LEVOTHYROXINE SODIUM 137 MCG TABLET PO SCH (05:53)
[2022-02-14] MEDS: PYRIDOSTIGMINE BROMIDE 60 MG TAB PO SCH ×3 (05:54→16:42)
[2022-02-14] MEDS: INSULIN ASPART PER UNIT SC SCH ×4 (08:39→21:26)
[2022-02-14] MEDS: INSULIN GLARGINE SOLOSTAR 100 UNITS/ML 3 ML PEN SC SCH ×2 (08:43→21:26)
[2022-02-14] MEDS: CYANOCOBALAMIN (B-12) 500 MCG TABLET PO SCH (08:48)
[2022-02-14] MEDS: HEPARIN SOD 5,000 UNIT/0.5 ML VIAL SC SCH ×2 (08:49→20:28)
[2022-02-14] MEDS: DOCUSATE SODIUM/SENNA 50/8.6MG TAB PO SCH ×2 (08:49→20:25)
[2022-02-14] MEDS: lisinopril 10 MG TAB PO SCH (08:49)
[2022-02-14] MEDS: PANTOprazole 40 MG TAB PO SCH (08:49)
[2022-02-14] MEDS: POLYETHYLENE (MIRALAX) 17 GM PACK PO SCH ×3 (08:50→21:26)
--- NOTE | 2022-02-14 14:05 | Hospitalist Progress Note ---
Date of Service February 14, 2022 Assessment & Plan (1) Fecal impaction: Plan: Patient with a long standing history of chronic constipation, including a history of stercoral colitis requiring disimpaction and bowel regimen in the past. -Per patient she has had several episodes of loose stools over the last several days when usually they are more formed, with some associated nausea and poor oral intake. -CTAP performed yesterday for LLQ abdominal pain showed large amount of stool within the rectum with mild rectal wall thickening and adjacent stranding. -S/p disimpaction on 02/08; was able to remove a large volume of stool from the patient's rectum. -will continue both MiraLAX and Senokot twice daily. -Patient will need a chronic bowel regimen on discharge. -Patient has stated to this provider that she would not want colonoscopy or any other kind of procedure at this point in time. -Zofran as needed for nausea. -Appears to have improved on 02/11 -No changes on the past 24-48 h (2) CKD (chronic kidney disease) stage 3, GFR 30-59 ml/min: Plan: -DAVONTE on CKD upon admission d/t creatinine of 1.63 -resolved and has returned to baseline (3) Dyspnea: Plan: Subjective reports of dyspnea over the last several days [employer]. Did have a reading of hypoxia to 78% x1 in ER, however poor waveform and has been saturating well on room air since that time. -CXR without evidence of pulmonary edema, pleural effusion, pneumonia. -RESOLVED (4) GERD (gastroesophageal reflux disease): Plan: -Continue H2 niraj and PPI (5) Hypothyroid: Plan: -Continue Levothyroxine (6) HLD (hyperlipidemia): Plan: -continue statin therapy (7) Diabetes mellitus, type 2: Plan: -Basal/bolus insulin while admitted. -Will hold off on low-carb diet at this time as patient's blood sugars have been stable and normal at home and patient is requesting carb-based foods. -This decision was made in concert with patient and family as she has not been eating well and would prefer her to have oral intake at this time even if that means things such as mashed potatoes. (8) Nonischemic cardiomyopathy: Plan: History of, s/p ICD with improvement in EF from 25% to 60%. -No evidence today of pulmonary edema or JVD. -No recent echocardiogram on file. Given complaints of dyspnea and increasing peripheral edema, Echo ordered to evaluate LV function as recommended in last cardiology outpatient note. -Echo results: LV systolic function noraml. No wma. EF=65-70%, mild MR. (9) Myasthenia gravis, AChR antibody positive: Plan: -Continue pyridostigmine 30mg TID. -Held diphenoxylate given trying to maintain motility for significant constipation. (10) Mixed stress and urge incontinence: Plan: -Continue oxybutynin (11) Ambulatory dysfunction: Plan: -With several days of full body weakness and malaise in the setting of likely viral gastroenteritis as well as severe constipation and stool ball. -Has a history of ambulatory dysfunction in the past requiring home health services on discharge. -PT and OT orders placed, case management to follow in the event that patient requires home health services versus shelter facility. -PT recommends SNF for rehab Plan: At this time, pt is medically stable for d/c to SNF for rehab. Pt initially requested [facility] but they have no beds anticipated until next week sometime. Pt informed she will have to provide other facilities to send referrals to. She agreed to send referrals to [facility] swing bed. Case management working on this. Admission and Anticipated Discharge Date Admission Date: February 09, 2022 Supervising Physician Co-Signing Physician Notes reviewed and agree elis Winslow PAC Subjective Patient seen on rounds this morning. She reports having a large BM. She denies chest pain, dyspnea, n/v/d, fever/chills, headache, or gu symptoms. She is awaiting word that she has a bed and can go to rehab. Review of Systems Review of Systems: All systems reviewed and are unremarkable except as noted in HPI and below. Denies fever, chills, fatigue, headache, nasal congestion, sore throat, cough, chest pain, shortness of breath, palpitations, orthopnea, PND, abdominal pain, n/v/d, constipation, dysuria, hematuria, frequency, back pain, joint pain or swelling, easy bruising or bleeding, skin lesions or rashes. Physical Exam Physical Exam: GENERAL: Well-developed, well-nourished. NAD. LUNGS: Clear to auscultation bilaterally. No W/R/R. CARDIOVASCULAR: Regular rate and rhythm. ABDOMEN: Soft, non-tender and non-distended. BS normal x 4 quad. EXTREMITIES: No edema. Non-tender. Peripheral pulses +2/4. NEUROLOGIC: A&O x3. PSYCHIATRIC: Cooperative. Appropriate mood and affect. SKIN: Warm, dry, intact. No rashes or lesions. Results & Data Results & Data ([facility]) Vital Signs (Past 12 Hours) Vital Signs Temp Pulse Resp BP Pulse Ox 02/14/22 08:21 36.6 C 66 18 127/77 93 PG Care Time/CCT Total # of Minutes Spent Total Time Spent with Patient: Total time spent is greater than 50% in coordination of care (as documented) at patient's floor/unit and/or counseling patient: Coding Level of Care Code 17259 Subseq Hosp Care Lvl 1 Diagnoses Fecal impaction K56.41 Dyspnea R06.00 GERD (gastroesophageal reflux disease) K21.9 CKD (chronic kidney disease) stage 3, GFR 30-59 ml/min N18.3 Hypothyroid E03.9 Hypothyroidism type: unspecified HLD (hyperlipidemia) E78.5 Diabetes mellitus, type 2 E11.9 Nonischemic cardiomyopathy I42.8 Myasthenia gravis, AChR antibody positive G70.00 Mixed stress and urge incontinence N39.46 Ambulatory dysfunction R26.2 (1) Hypothyroid Hypothyroidism type: unspecified Qualified Code(s): E03.9 - Hypothyroidism, unspecified
[2022-02-14] MEDS: ACETAMINOPHEN 325 MG TAB PO PRN (19:43)
[2022-02-14] MEDS: GABAPENTIN 300 MG CAP PO SCH (20:24)
[2022-02-14] MEDS: FAMOTIDINE 20 MG TAB PO SCH (20:25)
[2022-02-14] MEDS: OXYBUTYNIN CHLORIDE XL 5 MG TABCR PO SCH (20:26)
[2022-02-15] MEDS: LEVOTHYROXINE SODIUM 137 MCG TABLET PO SCH (06:18)
[2022-02-15] MEDS: PYRIDOSTIGMINE BROMIDE 60 MG TAB PO SCH ×3 (06:21→16:18)
[2022-02-15] MEDS: ACETAMINOPHEN 325 MG TAB PO PRN (08:18)
[2022-02-15] MEDS: INSULIN ASPART PER UNIT SC SCH ×4 (09:06→21:34)
[2022-02-15] MEDS: CYANOCOBALAMIN (B-12) 500 MCG TABLET PO SCH (09:07)
[2022-02-15] MEDS: DOCUSATE SODIUM/SENNA 50/8.6MG TAB PO SCH ×2 (09:07→21:26)
[2022-02-15] MEDS: HEPARIN SOD 5,000 UNIT/0.5 ML VIAL SC SCH ×2 (09:07→21:29)
[2022-02-15] MEDS: INSULIN GLARGINE SOLOSTAR 100 UNITS/ML 3 ML PEN SC SCH ×2 (09:07→21:34)
[2022-02-15] MEDS: PANTOprazole 40 MG TAB PO SCH (09:08)
[2022-02-15] MEDS: lisinopril 10 MG TAB PO SCH (09:08)
[2022-02-15] MEDS: POLYETHYLENE (MIRALAX) 17 GM PACK PO SCH ×2 (09:09→21:26)
--- NOTE | 2022-02-15 16:14 | Hospitalist Progress Note ---
Date of Service February 15, 2022 Assessment & Plan (1) Fecal impaction: Plan: Patient with a long standing history of chronic constipation, including a history of stercoral colitis requiring disimpaction and bowel regimen in the past. 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 -CTAP performed yesterday for LLQ abdominal pain showed large amount of stool within the rectum with mild rectal wall thickening and adjacent stranding. -S/p disimpaction on 02/08; was able to remove a large volume of stool from the patient's rectum. -will continue both MiraLAX and Senokot twice daily. -Patient will need a chronic bowel regimen on discharge. -Patient has stated to this provider that she would not want colonoscopy or any other kind of procedure at this point in time. -Zofran as needed for nausea. 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 Did have a reading of hypoxia to 78% x1 in ER, however poor waveform and has been saturating well on room air since that time. -CXR without evidence of pulmonary edema, pleural effusion, pneumonia. -RESOLVED (4) GERD (gastroesophageal reflux disease): Plan: -Continue H2 niraj and PPI (5) Hypothyroid: Plan: -Continue Levothyroxine (6) HLD (hyperlipidemia): Plan: -continue statin therapy (7) Diabetes mellitus, type 2: Plan: -Basal/bolus insulin while admitted. -Will hold off on low-carb diet at this time as patient's blood sugars have been stable and normal at home and patient is requesting carb-based foods. -This decision was made in concert with patient and family as she has not been eating well and would prefer her to have oral intake at this time even if that means things such as mashed potatoes. (8) Nonischemic cardiomyopathy: Plan: History of, s/p ICD with improvement in EF from 25% to 60%. -No evidence today of pulmonary edema or JVD. -No recent echocardiogram on file. Given complaints of dyspnea and increasing peripheral edema, Echo ordered to evaluate LV function as recommended in last cardiology outpatient note. -Echo results: LV systolic function noraml. No wma. EF=65-70%, mild MR. (9) Myasthenia gravis, AChR antibody positive: Plan: -Continue pyridostigmine 30mg TID. -Held diphenoxylate given trying to maintain motility for significant constipation. (10) Mixed stress and urge incontinence: Plan: -Continue oxybutynin (11) Ambulatory dysfunction: Plan: -With several days of full body weakness and malaise in the setting of likely viral gastroenteritis as well as severe constipation and stool ball. -Has a history of ambulatory dysfunction in the past requiring home health services on discharge. -PT and OT orders placed, case management to follow in the event that patient requires home health services versus custodial facility. -PT recommends SNF for rehab Plan: Pt has been medically ready for d/c to SNF for rehab for days. Pt initially requested [facility] but they have no beds anticipated until next week someti me. Pt informed she will have to provide other facilities to send referrals to. She agreed to send referrals to [facility] swing bed. [facility] returned call that they could take today. Auth submitted by CM but no word back from insurance. Likely, pt will remain in the hospital tonight, hopefully will hear back from insurance and obtain authorization by tomorrow so that she can go to rehab. Will d/w attending. Admission and Anticipated Discharge Date Admission Date: February 09, 2022 Supervising Physician Co-Signing Physician Notes reviewed and agree elis Winslow PAC Subjective Patient seen on rounds this morning. She denies chest pain, dyspnea, n/v/d, fever/chills, headache, or gu symptoms. She has been medically ready for d/c to rehab for days. She is having regular BMs. Review of Systems Review of Systems: All systems reviewed and are unremarkable except as noted in HPI and below. Denies fever, chills, fatigue, headache, nasal congestion, sore throat, cough, chest pain, shortness of breath, palpitations, orthopnea, PND, abdominal pain, n/v/d, constipation, dysuria, hematuria, frequency, back pain, joint pain or swelling, easy bruising or bleeding, skin lesions or rashes. Physical Exam Physical Exam: GENERAL: Well-developed, well-nourished. NAD. LUNGS: Clear to auscultation bilaterally. No W/R/R. CARDIOVASCULAR: Regular rate and rhythm. ABDOMEN: Soft, non-tender and non-distended. BS normal x 4 quad. EXTREMITIES: No edema. Non-tender. Peripheral pulses +2/4. NEUROLOGIC: A&O x3. PSYCHIATRIC: Cooperative. Appropriate mood and affect. SKIN: Warm, dry, intact. No rashes or lesions. Results & Data Results & Data ([facility]) Vital Signs (Past 12 Hours) Vital Signs Temp Pulse Resp BP BP Pulse Ox 02/15/22 14:08 36.6 C 68 16 148/82 H 97 02/15/22 05:33 36.5 C 67 18 177/82 H 94 PG Care Time/CCT Total # of Minutes Spent Total Time Spent with Patient: Total time spent is greater than 50% in coordination of care (as documented) at patient's floor/unit and/or counseling patient: Coding Level of Care Code 60959 Subseq Hosp Care Lvl 1 Diagnoses Fecal impaction K56.41 CKD (chronic kidney disease) stage 3, GFR 30-59 ml/min N18.3 Dyspnea R06.00 GERD (gastroesophageal reflux disease) K21.9 Hypothyroid E03.9 Hypothyroidism type: unspecified HLD (hyperlipidemia) E78.5 Diabetes mellitus, type 2 E11.9 Nonischemic cardiomyopathy I42.8 Myasthenia gravis, AChR antibody positive G70.00 Mixed stress and urge incontinence N39.46 Ambulatory dysfunction R26.2 (1) Hypothyroid Hypothyroidism type: unspecified Qualified Code(s): E03.9 - Hypothyroidism, unspecified
[2022-02-15] MEDS: GABAPENTIN 300 MG CAP PO SCH (21:29)
[2022-02-15] MEDS: OXYBUTYNIN CHLORIDE XL 5 MG TABCR PO SCH (21:29)
[2022-02-15] MEDS: FAMOTIDINE 20 MG TAB PO SCH (21:30)
[2022-02-16] MEDS: PYRIDOSTIGMINE BROMIDE 60 MG TAB PO SCH ×3 (06:06→16:47)
[2022-02-16] MEDS: LEVOTHYROXINE SODIUM 137 MCG TABLET PO SCH (06:06)
[2022-02-16] MEDS: DOCUSATE SODIUM/SENNA 50/8.6MG TAB PO SCH ×2 (09:21→20:47)
[2022-02-16] MEDS: PANTOprazole 40 MG TAB PO SCH (09:22)
[2022-02-16] MEDS: HEPARIN SOD 5,000 UNIT/0.5 ML VIAL SC SCH ×2 (09:22→20:46)
[2022-02-16] MEDS: INSULIN GLARGINE SOLOSTAR 100 UNITS/ML 3 ML PEN SC SCH ×2 (09:22→21:52)
[2022-02-16] MEDS: CYANOCOBALAMIN (B-12) 500 MCG TABLET PO SCH (09:22)
[2022-02-16] MEDS: lisinopril 10 MG TAB PO SCH (09:23)
[2022-02-16] MEDS: POLYETHYLENE (MIRALAX) 17 GM PACK PO SCH ×2 (09:23→20:48)
[2022-02-16] MEDS: INSULIN ASPART PER UNIT SC SCH ×4 (09:26→21:33)
--- NOTE | 2022-02-16 15:39 | Hospitalist Progress Note ---
Date of Service February 16, 2022 Assessment & Plan (1) Fecal impaction: Plan: Patient with a long standing history of chronic constipation, including a history of stercoral colitis requiring disimpaction and bowel regimen in the past. -Per patient she has had several episodes of loose stools over the last several days [employer] when usually they are more formed, with some associated nausea and poor oral intake. -CTAP performed yesterday for LLQ abdominal pain showed large amount of stool within the rectum with mild rectal wall thickening and adjacent stranding. -S/p disimpaction on 02/08; was able to remove a large volume of stool from the patient's rectum. -will continue both MiraLAX and Senokot. Senokot BID and MiraLAX has been cut back to once a day. -Patient will need a chronic bowel regimen on discharge. -Patient has stated to this provider that she would not want colonoscopy or any other kind of procedure at this point in time. -Zofran as needed for nausea. -Appears to have improved on 02/11 -No changes on the past 24-48 h (2) CKD (chronic kidney disease) stage 3, GFR 30-59 ml/min: Plan: -Mild DAVONTE on CKD upon admission with creatinine of 1.63 -resolved and has returned to baseline (3) Dyspnea: Plan: Subjective reports of dyspnea over the last several days [employer]. Did have a reading of hypoxia to 78% x1 in ER, however poor waveform and has been saturating well on room air since that time. -CXR without evidence of pulmonary edema, pleural effusion, pneumonia. -RESOLVED (4) GERD (gastroesophageal reflux disease): Plan: -Continue H2 niraj and PPI (5) Hypothyroid: Plan: -Continue Levothyroxine (6) HLD (hyperlipidemia): Plan: -continue statin therapy (7) Diabetes mellitus, type 2: Plan: -Basal/bolus insulin while admitted. -Will hold off on low-carb diet at this time as patient's blood sugars have been stable and normal at home and patient is requesting carb-based foods. -This decision was made in concert with patient and family as she has not been eating well and would prefer her to have oral intake at this time even if that means things such as mashed potatoes. (8) Nonischemic cardiomyopathy: Plan: History of, s/p ICD with improvement in EF from 25% to 60%. -No evidence today of pulmonary edema or JVD. -No recent echocardiogram on file. Given complaints of dyspnea and increasing peripheral edema, Echo ordered to evaluate LV function as recommended in last cardiology outpatient note. -Echo results: LV systolic function noraml. No wma. EF=65-70%, mild MR. (9) Myasthenia gravis, AChR antibody positive: Plan: -Continue pyridostigmine 30mg TID. -Held diphenoxylate given trying to maintain motility for significant constipation. (10) Mixed stress and urge incontinence: Plan: -Continue oxybutynin (11) Ambulatory dysfunction: Plan: -With several days of full body weakness and malaise in the setting of likely viral gastroenteritis as well as severe constipation and stool ball. -Has a history of ambulatory dysfunction in the past requiring home health services on discharge. -PT and OT orders placed, case management to follow in the event that patient requires home health services versus longterm facility. -PT recommends SNF for rehab Plan: Pt has been medically ready for d/c to SNF for rehab for days. Pt initially requested [facility] but they have no beds anticipated until next week sometime. Pt informed she will have to provide other facilities to send referrals to. She agreed to send referrals to [facility] swing bed. [place] returned call that they could take on 02/15, auth submitted but CM has still not received update if it was approved. Remains in the hospital until auth received so that she can be d/c'd to rehab. Will d/w attending. Admission and Anticipated Discharge Date Admission Date: February 09, 2022 Supervising Physician Co-Signing Physician Notes reviewed and agree elis Winslow PAC Subjective Patient seen on rounds this morning. She denies chest pain, dyspnea, n/v/d, fever/chills, headache, or gu symptoms. She has been medically ready for d/c to rehab for days. Review of Systems Review of Systems: All systems reviewed and are unremarkable except as noted in HPI and below. Denies fever, chills, fatigue, headache, nasal congestion, sore throat, cough, chest pain, shortness of breath, palpitations, orthopnea, PND, abdominal pain, n/v/d, constipation, dysuria, hematuria, frequency, back pain, joint pain or s welling, easy bruising or bleeding, skin lesions or rashes. Physical Exam Physical Exam: GENERAL: Well-developed, well-nourished. NAD. LUNGS: Clear to auscultation bilaterally. No W/R/R. CARDIOVASCULAR: Regular rate and rhythm. ABDOMEN: Soft, non-tender and non-distended. BS normal x 4 quad. EXTREMITIES: No edema. Non-tender. Peripheral pulses +2/4. NEUROLOGIC: A&O x3. PSYCHIATRIC: Cooperative. Appropriate mood and affect. SKIN: Warm, dry, intact. No rashes or lesions. Results & Data Results & Data ([facility]) Vital Signs (Past 12 Hours) Vital Signs Temp Pulse Resp BP Pulse Ox 02/16/22 15:04 36.8 C 69 16 111/71 95 02/16/22 07:50 36.5 C 62 16 119/72 95 PG Care Time/CCT Total # of Minutes Spent Total Time Spent with Patient: Total time spent is greater than 50% in coordination of care (as documented) at patient's floor/unit and/or counseling patient: Coding Level of Care Code 97684 Subseq Hosp Care Lvl 1 Diagnoses Fecal impaction K56.41 CKD (chronic kidney disease) stage 3, GFR 30-59 ml/min N18.3 Dyspnea R06.00 GERD (gastroesophageal reflux disease) K21.9 Hypothyroid E03.9 Hypothyroidism type: unspecified HLD (hyperlipidemia) E78.5 Diabetes mellitus, type 2 E11.9 Nonischemic cardiomyopathy I42.8 Myasthenia gravis, AChR antibody positive G70.00 Mixed stress and urge incontinence N39.46 Ambulatory dysfunction R26.2 (1) Hypothyroid Hypothyroidism type: unspecified Qualified Code(s): E03.9 - Hypothyroidism, unspecified
[2022-02-16] MEDS: FAMOTIDINE 20 MG TAB PO SCH (20:45)
[2022-02-16] MEDS: OXYBUTYNIN CHLORIDE XL 5 MG TABCR PO SCH (20:45)
[2022-02-16] MEDS: GABAPENTIN 300 MG CAP PO SCH (20:46)
[2022-02-17] MEDS: PYRIDOSTIGMINE BROMIDE 60 MG TAB PO SCH ×3 (06:02→16:12)
[2022-02-17] MEDS: LEVOTHYROXINE SODIUM 137 MCG TABLET PO SCH (06:02)
[2022-02-17] MEDS: PANTOprazole 40 MG TAB PO SCH (08:45)
[2022-02-17] MEDS: DOCUSATE SODIUM/SENNA 50/8.6MG TAB PO SCH ×2 (08:46→20:39)
[2022-02-17] MEDS: CYANOCOBALAMIN (B-12) 500 MCG TABLET PO SCH (08:46)
[2022-02-17] MEDS: POLYETHYLENE (MIRALAX) 17 GM PACK PO SCH ×3 (08:47→20:43)
[2022-02-17] MEDS: lisinopril 10 MG TAB PO SCH (08:51)
[2022-02-17] MEDS: INSULIN GLARGINE SOLOSTAR 100 UNITS/ML 3 ML PEN SC SCH ×2 (08:52→20:43)
[2022-02-17] MEDS: HEPARIN SOD 5,000 UNIT/0.5 ML VIAL SC SCH ×2 (08:53→20:38)
[2022-02-17] MEDS: INSULIN ASPART PER UNIT SC SCH ×4 (09:01→20:45)
--- NOTE | 2022-02-17 11:48 | Hospitalist Progress Note ---
Date of Service February 17, 2022 Assessment & Plan (1) Fecal impaction: Plan: Patient with a long standing history of chronic constipation, including a history of stercoral colitis requiring disimpaction and bowel regimen in the past. 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 -CTAP performed yesterday for LLQ abdominal pain showed large amount of stool within the rectum with mild rectal wall thickening and adjacent stranding. -S/p disimpaction on 02/08; was able to remove a large volume of stool from the patient's rectum. -will continue both MiraLAX and Senokot. Senokot BID and MiraLAX has been cut back to once a day. -Patient will need a chronic bowel regimen on discharge. -Patient has stated to this provider that she would not want colonoscopy or any other kind of procedure at this point in time. -Zofran as needed for nausea. 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 Did have a reading of hypoxia to 78% x1 in ER, however poor waveform and has been saturating well on room air since that time. -CXR without evidence of pulmonary edema, pleural effusion, pneumonia. -RESOLVED (4) GERD (gastroesophageal reflux disease): Plan: -Continue H2 niraj and PPI (5) Hypothyroid: Plan: -Continue Levothyroxine (6) HLD (hyperlipidemia): Plan: -continue statin therapy (7) Diabetes mellitus, type 2: Plan: -Basal/bolus insulin while admitted. -Will hold off on low-carb diet at this time as patient's blood sugars have been stable and normal at home and patient is requesting carb-based foods. -This decision was made in concert with patient and family as she has not been eating well and would prefer her to have oral intake at this time even if that means things such as mashed potatoes. (8) Nonischemic cardiomyopathy: Plan: History of, s/p ICD with improvement in EF from 25% to 60%. -No evidence today of pulmonary edema or JVD. -No recent echocardiogram on file. Given complaints of dyspnea and increasing peripheral edema, Echo ordered to evaluate LV function as recommended in last cardiology outpatient note. -Echo results: LV systolic function noraml. No wma. EF=65-70%, mild MR. (9) Myasthenia gravis, AChR antibody positive: Plan: -Continue pyridostigmine 30mg TID. -Held diphenoxylate given trying to maintain motility for significant constipation. (10) Mixed stress and urge incontinence: Plan: -Continue oxybutynin (11) Ambulatory dysfunction: Plan: -With several days of full body weakness and malaise in the setting of likely viral gastroenteritis as well as severe constipation and stool ball. -Has a history of ambulatory dysfunction in the past requiring home health services on discharge. -PT and OT orders placed, case management to follow in the event that patient requires home health services versus shelter facility. -PT recommends SNF for rehab Plan: Pt has been medically ready for d/c to SNF for rehab for days. Pt initially requested [facility] but they have no beds anticipated until next week sometime. Pt informed she will have to provide other facilities to send referrals to. She agreed to send referrals to [facility] swing bed. [place] returned call that they could take on 02/15, auth submitted but CM has still not received update if it was approved. Remains in the hospital until auth received so that she can be d/c'd to rehab. Will d/w attending. Admission and Anticipated Discharge Date Admission Date: February 09, 2022 Supervising Physician Co-Signing Physician Notes reviewed and agree elis Winslow PAC Subjective Patient seen on rounds this morning. She denies chest pain, dyspnea, n/v/d, fever/chills, headache, or gu symptoms. She has been medically ready for d/c to rehab for days. Review of Systems Review of Systems: All systems reviewed and are unremarkable except as noted in HPI and below. Denies fever, chills, fatigue, headache, nasal congestion, sore throat, cough, chest pain, shortness of breath, palpitations, orthopnea, PND, abdominal pain, n/v/d, constipation, dysuria, hematuria, frequency, back pain, joint pain or swelling, easy bruising or bleeding, skin lesions or rashes. Physical Exam Physical Exam: GENERAL: Well-developed, well-nourished. NAD. LUNGS: Clear to auscultation bilaterally. No W/R/R. CARDIOVASCULAR: Regular rate and rhythm. ABDOMEN: Soft, non-tender and non-distended. BS normal x 4 quad. EXTREMITIES: No edema. Non-tender. Peripheral pulses +2/4. NEUROLOGIC: A&O x3. PSYCHIATRIC: Cooperative. Appropriate mood and affect. SKIN: Warm, dry, intact. No rashes or lesions. Results & Data Results & Data ([facility]) Vital Signs (Past 12 Hours) Vital Signs Temp Pulse Resp BP BP Pulse Ox 02/17/22 08:50 79 146/87 H 02/17/22 08:07 36.4 C L 66 16 117/69 96 PG Care Time/CCT Total # of Minutes Spent Total Time Spent with Patient: Total time spent is greater than 50% in coordination of care (as documented) at patient's floor/unit and/or counseling patient: Coding Level of Care Code 52287 Subseq Hosp Care Lvl 1 Diagnoses Fecal impaction K56.41 CKD (chronic kidney disease) stage 3, GFR 30-59 ml/min N18.3 Dyspnea R06.00 GERD (gastroesophageal reflux disease) K21.9 Hypothyroid E03.9 Hypothyroidism type: unspecified HLD (hyperlipidemia) E78.5 Diabetes mellitus, type 2 E11.9 Nonischemic cardiomyopathy I42.8 Myasthenia gravis, AChR antibody positive G70.00 Mixed stress and urge incontinence N39.46 Ambulatory dysfunction R26.2 (1) Hypothyroid Hypothyroidism type: unspecified Qualified Code(s): E03.9 - Hypothyroidism, unspecified
[2022-02-17] MEDS: OXYBUTYNIN CHLORIDE XL 5 MG TABCR PO SCH (20:38)
[2022-02-17] MEDS: FAMOTIDINE 20 MG TAB PO SCH (20:39)
[2022-02-17] MEDS: GABAPENTIN 300 MG CAP PO SCH (20:39)
[2022-02-18] MEDS: LEVOTHYROXINE SODIUM 137 MCG TABLET PO SCH (06:02)
[2022-02-18] MEDS: PYRIDOSTIGMINE BROMIDE 60 MG TAB PO SCH ×3 (06:02→16:49)
[2022-02-18] MEDS: ALENDRONATE SODIUM 70 MG TAB PO SCH (06:02)
[2022-02-18] MEDS: INSULIN ASPART PER UNIT SC SCH ×4 (08:42→20:48)
[2022-02-18] MEDS: INSULIN GLARGINE SOLOSTAR 100 UNITS/ML 3 ML PEN SC SCH (08:43)
[2022-02-18] MEDS: PANTOprazole 40 MG TAB PO SCH (08:43)
[2022-02-18] MEDS: lisinopril 10 MG TAB PO SCH (08:43)
[2022-02-18] MEDS: HEPARIN SOD 5,000 UNIT/0.5 ML VIAL SC SCH ×2 (08:43→20:41)
[2022-02-18] MEDS: CYANOCOBALAMIN (B-12) 500 MCG TABLET PO SCH (08:43)
[2022-02-18] MEDS: DOCUSATE SODIUM/SENNA 50/8.6MG TAB PO SCH ×2 (08:43→20:40)
[2022-02-18] MEDS: POLYETHYLENE (MIRALAX) 17 GM PACK PO SCH ×3 (08:44→20:46)
--- NOTE | 2022-02-18 10:31 | Hospitalist Progress Note ---
Date of Service February 18, 2022 Assessment & Plan (1) Fecal impaction: Plan: Patient with a long standing history of chronic constipation, including a history of stercoral colitis requiring disimpaction and bowel regimen in the past. 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 -CTAP performed yesterday for LLQ abdominal pain showed large amount of stool within the rectum with mild rectal wall thickening and adjacent stranding. -S/p disimpaction on 02/08; was able to remove a large volume of stool from the patient's rectum. -will continue both MiraLAX and Senokot. Senokot BID and MiraLAX has been cut back to once a day. -Patient will need a chronic bowel regimen on discharge. -Patient has stated to this provider that she would not want colonoscopy or any other kind of procedure at this point in time. -Zofran as needed for nausea. -Appears to have improved on 02/11 -No changes over the past several days (2) CKD (chronic kidney disease) stage 3, GFR 30-59 ml/min: Plan: -Mild DAVONTE on CKD upon admission with creatinine of 1.63 -resolved and has returned to baseline (3) Dyspnea: Plan: Subjective reports of dyspnea over the last several days [employer]PER[employer]ENT [employer]. Did have a reading of hypoxia to 78% x1 in ER, however poor waveform and has been saturating well on room air since that time. -CXR without evidence of pulmonary edema, pleural effusion, pneumonia. -RESOLVED (4) GERD (gastroesophageal reflux disease): Plan: -Continue H2 niraj and PPI (5) Hypothyroid: Plan: -Continue Levothyroxine (6) HLD (hyperlipidemia): Plan: -continue statin therapy (7) Diabetes mellitus, type 2: Plan: -Basal/bolus insulin while admitted. -Will hold off on low-carb diet at this time as patient's blood sugars have been stable and normal at home and patient is requesting carb-based foods. -This decision was made in concert with patient and family as she has not been eating well and would prefer her to have oral intake at this time even if that means things such as mashed potatoes. (8) Nonischemic cardiomyopathy: Plan: History of, s/p ICD with improvement in EF from 25% to 60%. -No evidence today of pulmonary edema or JVD. -No recent echocardiogram on file. Given complaints of dyspnea and increasing peripheral edema, Echo ordered to evaluate LV function as recommended in last cardiology outpatient note. -Echo results: LV systolic function noraml. No wma. EF=65-70%, mild MR. (9) Myasthenia gravis, AChR antibody positive: Plan: -Continue pyridostigmine 30mg TID. -Held diphenoxylate given trying to maintain motility for significant constipation. (10) Mixed stress and urge incontinence: Plan: -Continue oxybutynin (11) Ambulatory dysfunction: Plan: -With several days of full body weakness and malaise in the setting of likely viral gastroenteritis as well as severe constipation and stool ball. -Has a history of ambulatory dysfunction in the past requiring home health services on discharge. -PT and OT orders placed, case management to follow in the event that patient requires home health services versus long-term facility. -PT recommends SNF for rehab Plan: Pt has been medically ready for d/c to SNF for rehab for days. Pt initially requested [facility] but they have no beds anticipated until next week sometime. [place] returned call that they could take on 02/15, auth submitted but CM has still not been notified if it was approved. Remains in the hospital until auth received so that she can be d/c'd to rehab. Will d/w attending. Admission and Anticipated Discharge Date Admission Date: February 09, 2022 Subjective Patient seen on rounds this morning. Is now having regular BMs. She denies chest pain, dyspnea, n/v/d, fever/chills, headache, or gu symptoms. She has been medically ready for d/c to rehab for days. Review of Systems Review of Systems: All systems reviewed and are unremarkable except as noted in HPI and below. Denies fever, chills, fatigue, headache, nasal congestion, sore throat, cough, chest pain, shortness of breath, palpitations, orthopnea, PND, abdominal pain, n/v/d, constipation, dysuria, hematuria, frequency, back pain, joint pain or swelling, easy bruising or bleeding, skin lesions or rashes. Physical Exam Physical Exam: GENERAL: Well-developed, well-nourished. NAD. LUNGS: Clear to auscultation bilaterally. No W/R/R. CARDIOVASCULAR: Regular rate and rhythm. ABDOMEN: Soft, non-tender and non-distended. BS normal x 4 quad. EXTREMITIES: No edema. Non-tender. Peripheral pulses +2/4. NEUROLOGIC: A&O x3. PSYCHIATRIC: Cooperative. Appropriate mood and affect. SKIN: Warm, dry, intact. No rashes or lesions. Results & Data Results & Data ([facility]) Vital Signs (Past 12 Hours) Vital Signs Temp Pulse Resp BP Pulse Ox 02/18/22 07:49 36.8 C 62 16 123/68 96 PG Care Time/CCT Total # of Minutes Spent Total Time Spent with Patient: Total time spent is greater than 50% in coordination of care (as documented) at patient's floor/unit and/or counseling patient: Coding Level of Care Code 55997 Subseq Hosp Care Lvl 1 Diagnoses Fecal impaction K56.41 CKD (chronic kidney disease) stage 3, GFR 30-59 ml/min N18.3 Dyspnea R06.00 GERD (gastroesophageal reflux disease) K21.9 Hypothyroid E03.9 Hypothyroidism type: unspecified HLD (hyperlipidemia) E78.5 Diabetes mellitus, type 2 E11.9 Nonischemic cardiomyopathy I42.8 Myasthenia gravis, AChR antibody positive G70.00 Mixed stress and urge incontinence N39.46 Ambulatory dysfunction R26.2 (1) Hypothyroid Hypothyroidism type: unspecified Qualified Code(s): E03.9 - Hypothyroidism, unspecified
[2022-02-18] MEDS: FAMOTIDINE 20 MG TAB PO SCH (20:41)
[2022-02-18] MEDS: OXYBUTYNIN CHLORIDE XL 5 MG TABCR PO SCH (20:41)
[2022-02-18] MEDS: GABAPENTIN 300 MG CAP PO SCH (20:41)
[2022-02-19] MEDS: LEVOTHYROXINE SODIUM 137 MCG TABLET PO SCH (06:02)
[2022-02-19] MEDS: PYRIDOSTIGMINE BROMIDE 60 MG TAB PO SCH ×3 (06:02→16:13)
[2022-02-19] MEDS: DOCUSATE SODIUM/SENNA 50/8.6MG TAB PO SCH ×2 (08:23→20:27)
[2022-02-19] MEDS: HEPARIN SOD 5,000 UNIT/0.5 ML VIAL SC SCH ×2 (08:23→20:26)
[2022-02-19] MEDS: lisinopril 10 MG TAB PO SCH (08:24)
[2022-02-19] MEDS: POLYETHYLENE (MIRALAX) 17 GM PACK PO SCH ×2 (08:24→20:27)
[2022-02-19] MEDS: CYANOCOBALAMIN (B-12) 500 MCG TABLET PO SCH (08:24)
[2022-02-19] MEDS: PANTOprazole 40 MG TAB PO SCH (08:24)
[2022-02-19] MEDS: INSULIN ASPART PER UNIT SC SCH ×4 (09:19→20:55)
--- NOTE | 2022-02-19 15:53 | Hospitalist Progress Note ---
Date of Service February 19, 2022 Assessment & Plan (1) Fecal impaction: Plan: Patient with a long standing history of chronic constipation, including a history of stercoral colitis requiring disimpaction and bowel regimen in the past. -Per patient she has had several episodes of loose stools over the last several days [employer] when usually they are more formed, with some associated nausea and poor oral intake. -CTAP performed yesterday for LLQ abdominal pain showed large amount of stool within the rectum with mild rectal wall thickening and adjacent stranding. -S/p disimpaction on 02/08; was able to remove a large volume of stool from the patient's rectum. -will continue both MiraLAX and Senokot. Senokot BID and MiraLAX has been cut back to once a day. -Patient will need a chronic bowel regimen on discharge. -Patient has stated to this provider that she would not want colonoscopy or any other kind of procedure at this point in time. -Zofran as needed for nausea. 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 Did have a reading of hypoxia to 78% x1 in ER, however poor waveform and has been saturating well on room air since that time. -CXR without evidence of pulmonary edema, pleural effusion, pneumonia. -RESOLVED (4) GERD (gastroesophageal reflux disease): Plan: -Continue H2 niraj and PPI (5) Hypothyroid: Plan: -Continue Levothyroxine (6) HLD (hyperlipidemia): Plan: -continue statin therapy (7) Diabetes mellitus, type 2: Plan: -Basal/bolus insulin while admitted. -Will hold off on low-carb diet at this time as patient's blood sugars have been stable and normal at home and patient is requesting carb-based foods. -This decision was made in concert with patient and family as she has not been eating well and would prefer her to have oral intake at this time even if that means things such as mashed potatoes. (8) Nonischemic cardiomyopathy: Plan: History of, s/p ICD with improvement in EF from 25% to 60%. -No evidence today of pulmonary edema or JVD. -No recent echocardiogram on file. Given complaints of dyspnea and increasing peripheral edema, Echo ordered to evaluate LV function as recommended in last cardiology outpatient note. -Echo results: LV systolic function noraml. No wma. EF=65-70%, mild MR. (9) Myasthenia gravis, AChR antibody positive: Plan: -Continue pyridostigmine 30mg TID. -Held diphenoxylate given trying to maintain motility for significant constipation. (10) Mixed stress and urge incontinence: Plan: -Continue oxybutynin (11) Ambulatory dysfunction: Plan: -With several days of full body weakness and malaise in the setting of likely viral gastroenteritis as well as severe constipation and stool ball. -Has a history of ambulatory dysfunction in the past requiring home health services on discharge. -PT and OT orders placed, case management to follow in the event that patient requires home health services versus [facility] facility. -PT recommends SNF for rehab Plan: Pt has been medically ready for d/c to SNF for rehab for days. Pt initially requested [facility] but they have no beds. [place] returned call that they could take on 02/15, auth submitted but CM has still not been notified if it was approved. Remains in the hospital until auth received so that she can be d/c'd to rehab. Will d/w attending. Admission and Anticipated Discharge Date Admission Date: February 09, 2022 Subjective Patient seen on rounds this morning. Is now having regular BMs. She denies chest pain, dyspnea, n/v/d, fever/chills, headache, or gu symptoms. She has been medically ready for d/c to rehab for days. Review of Systems Review of Systems: All systems reviewed and are unremarkable except as noted in HPI and below. Denies fever, chills, fatigue, headache, nasal congestion, sore throat, cough, chest pain, shortness of breath, palpitations, orthopnea, PND, abdominal pain, n/v/d, constipation, dysuria, hematuria, frequency, back pain, joint pain or swelling, easy bruising or bleeding, skin lesions or rashes. Physical Exam Physical Exam: GENERAL: Well-developed, well-nourished. NAD. LUNGS: Clear to auscultation bilaterally. No W/R/R. CARDIOVASCULAR: Regular rate and rhythm. ABDOMEN: Soft, non-tender and non-distended. BS normal x 4 quad. EXTREMITIES: No edema. Non-tender. Peripheral pulses +2/4. NEUROLOGIC: A&O x3. PSYCHIATRIC: Cooperative. Appropriate mood and affect. SKIN: Warm, dry, intact. No rashes or lesions. Results & Data Results & Data ([facility]) Vital Signs (Past 12 Hours) Vital Signs Temp Pulse Resp BP Pulse Ox 02/19/22 07:26 36.6 C 63 18 121/71 95 PG Care Time/CCT Total # of Minutes Spent Total Time Spent with Patient: Total time spent is greater than 50% in coordination of care (as documented) at patient's floor/unit and/or counseling patient: Coding Level of Care Code 65397 Subseq Hosp Care Lvl 1 Diagnoses Fecal impaction K56.41 CKD (chronic kidney disease) stage 3, GFR 30-59 ml/min N18.3 Dyspnea R06.00 GERD (gastroesophageal reflux disease) K21.9 Hypothyroid E03.9 Hypothyroidism type: unspecified HLD (hyperlipidemia) E78.5 Diabetes mellitus, type 2 E11.9 Nonischemic cardiomyopathy I42.8 Myasthenia gravis, AChR antibody positive G70.00 Mixed stress and urge incontinence N39.46 Ambulatory dysfunction R26.2 (1) Hypothyroid Hypothyroidism type: unspecified Qualified Code(s): E03.9 - Hypothyroidism, unspecified
[2022-02-19] MEDS: FAMOTIDINE 20 MG TAB PO SCH (20:26)
[2022-02-19] MEDS: GABAPENTIN 300 MG CAP PO SCH (20:26)
[2022-02-19] MEDS: OXYBUTYNIN CHLORIDE XL 5 MG TABCR PO SCH (20:27)
[2022-02-20] MEDS: LEVOTHYROXINE SODIUM 137 MCG TABLET PO SCH (06:10)
[2022-02-20] MEDS: PYRIDOSTIGMINE BROMIDE 60 MG TAB PO SCH ×2 (06:10→11:06)
[2022-02-20] MEDS: DOCUSATE SODIUM/SENNA 50/8.6MG TAB PO SCH (08:15)
[2022-02-20] MEDS: CYANOCOBALAMIN (B-12) 500 MCG TABLET PO SCH (08:15)
[2022-02-20] MEDS: lisinopril 10 MG TAB PO SCH (08:15)
[2022-02-20] MEDS: POLYETHYLENE (MIRALAX) 17 GM PACK PO SCH (08:16)
[2022-02-20] MEDS: PANTOprazole 40 MG TAB PO SCH (08:16)
[2022-02-20] MEDS: HEPARIN SOD 5,000 UNIT/0.5 ML VIAL SC SCH (08:16)
[2022-02-20] MEDS: INSULIN ASPART PER UNIT SC SCH ×2 (08:52→12:42)
--- NOTE | 2022-02-20 11:59 | Discharge Summary ---
Date of Service February 20, 2022 Admission HPI Per Admitting Provider 87-year-old female with past medical history significant for MGUS, osteoporosis, urinary retention, stress incontinence, myasthenia gravis, hypertension, GERD, diabetes, carotid artery stenosis, hyperlipidemia, CKD stage_, chronic constipation presented to the ER for worsening weakness over the last several days as well as lower extremity edema and episode of breathlessness earlier today. She also reports an increase in diarrhea recently. She is on pyridostigmine for myasthenia gravis and difficulty with chewing which she reports causes her to have more diarrhea. She lives at home with her . Over the last several days she has not been able to perform her ADLs without significant assistance. She has not been eating or drinking well over the last couple of days due to weakness. No reported fevers, chest pain, abdominal pain, nausea, vomiting, URI symptoms. Principal Diagnosis 1. Fecal impaction s/p disimpaction, now on bowel regimen 2. Debility Discharge Exam GENERAL: Well-developed, well-nourished. NAD. LUNGS: Clear to auscultation bilaterally. No W/R/R. CARDIOVASCULAR: Regular rate and rhythm. ABDOMEN: Soft, non-tender and non-distended. BS normal x 4 quad. EXTREMITIES: No edema. Non-tender. Peripheral pulses +2/4. NEUROLOGIC: A&O x3. PSYCHIATRIC: Cooperative. Appropriate mood and affect. SKIN: Warm, dry, intact. No rashes or lesions. Discharge Data Allergies Allergy/AdvReac Type Severity Reaction Status Date / Time celecoxib Allergy Severe SX OF Verified 02/07/22 18:21 STROKE, FACIAL NUMBNESS, UNABLE TO SPEAK fesoterodine [From Toviaz] Allergy Unknown Unknown Verified 02/07/22 18:21 solifenacin [From Vesicare] Allergy Unknown Unknown Verified 02/07/22 18:21 morphine AdvReac Intermediate Confusion Verified 02/07/22 18:21 ciprofloxacin AdvReac Mild UPSET Verified 02/07/22 18:21 STOMACH metronidazole AdvReac Mild N/V Verified 02/07/22 18:21 Consultations 02/08/22 17:08 ED Decision to Admit Stat Ordered Studies KUB X-Ray 02/08/22 13:29 KUB HISTORY: diarrhea COMPARISON: Abdomen and pelvis CT 02/07/2022. FINDINGS: There is also contrast within the colon. No evidence for bowel obstruction. Moderate stool ball again noted within the rectum measuring 7.2 cm. There is contrast within the bladder lumen from the recent CT examination. There is a left total hip arthroplasty. Colonic diverticulosis. Left-sided dual- chamber pacemaker. Dextroscoliosis of the lumbar spine. No renal calculi. No ureteral calculi. No pneumoperitoneum or pneumatosis. IMPRESSION: 1. No evidence for bowel obstruction. 2. Moderate stool ball again noted within the rectum. 3. Colonic diverticulosis. ACT 112: Negative or not required by law. Electronically signed by: Kranthi Mena M.D. 02/08/2022 2:05 PM Chest X-Ray 02/08/22 13:30 XR chest 1V portable CLINICAL HISTORY: diarrhea COMPARISON STUDY: Chest CT October 01, 2021. Chest radiograph February 07, 2022. FINDINGS: Left subclavian pacer/AICD is in place. There is no pneumothorax or pleural effusion. There is no consolidation or evidence for pulmonary edema. Skin folds project over the right chest. Patient is rotated. Cardiomegaly is unchanged. Severe degenerative changes of both glenohumeral joints are noted. IMPRESSION: No acute cardiopulmonary findings. ACT 112: Negative or not required by law. Electronically signed by: Kendall Kirby M.D. 02/08/2022 2:04 PM KUB X-Ray 02/09/22 20:00 XR KUB/Abdomen 1 view CLINICAL HISTORY: abdominal pain. COMPARISON STUDY: 02/08/2022 TECHNIQUE: Single view of the abdomen. FINDINGS: Compared to previous examination, there is interval decrease of stool burden. No significant fecal impaction with fecal stasis is identified. No bowel dilatation or obstruction is identified. There is no evidence for organomegaly or gross intra-abdominal mass. No abnormal calcifications are seen along the course of the urinary tracts bilaterally. No acute osseous pathology. IMPRESSION: 1. No acute intra-abdominal abnormality. Interval decrease in stool burden with no fecal impaction or obstruction identified. ACT 112: Negative or not required by law. Electronically signed by: Juan Antonio Blanchard M.D. 02/10/2022 7:06 AM Hospital Course (1) Fecal impaction: Patient with a long standing history of chronic constipation, including a history of stercoral colitis requiring disimpaction and bowel regimen in the past. 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 -CTAP performed yesterday for LLQ abdominal pain showed large amount of stool within the rectum with mild rectal wall thickening and adjacent stranding. -S/p disimpaction on 02/08; was able to remove a large volume of stool from the patient's rectum. -will continue both MiraLAX and Senokot. Senokot BID and MiraLAX has been cut back to once a day. -Patient will need a chronic bowel regimen on discharge. -Patient has stated to this provider that she would not want colonoscopy or any other kind of procedure at this point in time. -Zofran as needed for nausea. 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 Did have a reading of hypoxia to 78% x1 in ER, however poor waveform and has been saturating well on room air since that time. -CXR without evidence of pulmonary edema, pleural effusion, pneumonia. -RESOLVED (4) GERD (gastroesophageal reflux disease): -Continue H2 niraj and PPI (5) Hypothyroid: -Continue Levothyroxine (6) HLD (hyperlipidemia): -continue statin therapy (7) Diabetes mellitus, type 2: -Basal/bolus insulin while admitted. -Will hold off on low-carb diet at this time as patient's blood sugars have been stable and normal at home and patient is requesting carb-based foods. -This decision was made in concert with patient and family as she has not been eating well and would prefer her to have oral intake at this time even if that means things such as mashed potatoes. (8) Nonischemic cardiomyopathy: History of, s/p ICD with improvement in EF from 25% to 60%. -No evidence today of pulmonary edema or JVD. -No recent echocardiogram on file. Given complaints of dyspnea and increasing peripheral edema, Echo ordered to evaluate LV function as recommended in last cardiology outpatient note. -Echo results: LV systolic function noraml. No wma. EF=65-70%, mild MR. (9) Myasthenia gravis, AChR antibody positive: -Continue pyridostigmine 30mg TID. -Held diphenoxylate given trying to maintain motility for significant constipation. (10) Mixed stress and urge incontinence: -Continue oxybutynin (11) Ambulatory dysfunction: -With several days of full body weakness and malaise in the setting of likely viral gastroenteritis as well as severe constipation and stool ball. -Has a history of ambulatory dysfunction in the past requiring home health services on discharge. -PT and OT orders placed, case management to follow in the event that patient requires home health services versus detention facility. -PT recommends SNF for rehab however this was denied by her insurance Plan was to get her to SNF for rehab. [facility] call that they could take on 02/15, auth submitted but CM has still not been notified if it was approved. Insurance contacted case management this morning (02/20) and notified that her SNF auth request has been denied. This was explained to patient and her family, they are agreeable to her returning home with home health (PT/OT and SN) and family support. We encouraged her to follow up with her family doctor within 1 week of discharge. She is medically stable for discharge home today. Plan has been d/w Dr. Cruz who is in agreement. Total Time Total Time Spent Total Time Spent (In Minutes): >30 minutes Discharge Plan Discharge Items Patient Disposition: Home - Home Health Services Reason For Visit: STOOL IMPACTION, AMBULATORY DYSFUNCTION Discharge Diagnosis: Constipation Weakness with difficulty walking Activity: Resume your previous activity Non-emergency contact: Primary Care Provider Call non-emergency contact if: you have any medication questions and your symptoms worsen Follow-up/Referrals: Adriano Castellanos MD [Primary Care Provider] - Diet: Regular and Other - See Diet Comment Diet Comment: high fiber Addtl Attending Provider Instructions: You have been hospitalized due to constipation. You required manual evacuation of the stool from your rectum and has since been placed on a regimen of medications to help you regulate your bowel movements. You were also seen by physical and occupational therapy who recommended that you go to physical rehabilitation before returning home. While [facility] was your first choice, they did not have any beds at this time. [facility] able to take [facility] and can do your physical rehabilitation there so that you can safely transition back home when you are ready. During your stay, the following medications have been stopped: Lomotil and Ferrous Sulfate. These medications can cause constipation. We have started you on the following medications: Senna-S, 1 tablet by mouth twice a day, and MiraLax 1 (17g) packet once a day. These medications in addition to a high fiber diet and drinking plenty of water to maintain adequate hydration will help keep your bowel movements regular and prevent constipation. It is recommended that you follow up with your primary care healthcare provider within 1 week of discharge. In the event that you have any questions or concerns, please contact the nonemergency number listed on your discharge paperwork. In the event of a medical emergency, call 911. Pending Studies at Discharge: No Stand-Alone Forms: My [facility], Smoking Cessation Medications and DC Order Prescriptions: New polyethylene glycol 3350 [Miralax] 17 gram Powder In Packet 17 g PO DAILY Qty: 30 RF: 0 sennosides-docusate sodium [Senokot-S] 8.6-50 mg Tablet 1 tab PO BID Qty: 60 RF: 0 Continued lisinopril 10 mg tablet 10 mg PO DAILY Qty: 90 RF: 3 levothyroxine 137 mcg tablet 137 mcg PO DAILY Qty: 90 RF: 3 cyanocobalamin (vitamin B-12) [Vitamin B-12] 1,000 mcg tablet 500 mcg PO QAM RF: 0 atorvastatin 40 mg tablet 40 mg PO HS Qty: 90 RF: 3 pantoprazole 40 mg tablet,delayed release (DR/EC) 40 mg PO QAM Qty: 30 RF: 11 oxybutynin chloride 5 mg tablet extended release 24hr 5 mg PO HS Qty: 30 RF: 11 gabapentin 300 mg capsule 600 mg PO HS Qty: 60 RF: 5 ascorbic acid (vitamin C) 500 mg tablet 500 mg PO QAM RF: 0 Centrum Silver Women 8 mg iron-400 mcg-300 mcg tablet 1 tab PO QAM RF: 0 pyridostigmine bromide [Mestinon] 60 mg tablet 60 mg PO TID 90 Days Qty: 270 RF: 1 cholecalciferol (vitamin D3) [Vitamin D3] 2,000 unit Tablet 2,000 unit PO QAM RF: 0 vitamin A 2,400 mcg capsule 2,400 mcg PO QAM RF: 0 vitamin E 100 unit capsule 100 unit PO QAM RF: 0 acetaminophen 500 mg tablet 1,000 mg PO TID PRN (Reason: Pain) RF: 0 glucosamine-chondroitin [Osteo Bi-Flex] 250-200 mg Tablet 1 tab PO DAILY RF: 0 diphenhydramine-acetaminophen [Tylenol PM Extra Strength] 25-500 mg Tablet 2 tab PO HS RF: 0 famotidine 20 mg Tablet 20 mg PO HS RF: 0 alendronate 70 mg tablet 70 mg PO WK RF: 0 Discontinued ferrous sulfate [FeroSul] 325 mg (65 mg iron) tablet 325 mg PO QAM RF: 0 diphenoxylate-atropine [Lomotil] 2.5-0.025 mg tablet 1 tab PO TID PRN (Reason: diarrhea) 90 Days Qty: 270 RF: 1 Discharge Orders: Discharge Order (Routine); Ordered 02/20/22 Ordered By: Alanna Winslow Admission Data Admit Date/Time: 02/09/22 16:59 Attending Provider: Margarito Cruz Admit Provider: Kathy Alfaro Primary Care Provider: Adriano Castellanos Other Providers: Chente Ruby ; [facility],Home Healthcare Coding Level of Care Code D/C DAY MANAGEMENT >30 MINS Diagnoses Fecal impaction K56.41 CKD (chronic kidney disease) stage 3, GFR 30-59 ml/min N18.3 Dyspnea R06.00 GERD (gastroesophageal reflux disease) K21.9 Hypothyroid E03.9 Hypothyroidism type: unspecified HLD (hyperlipidemia) E78.5 Diabetes mellitus, type 2 E11.9 Nonischemic cardiomyopathy I42.8 Myasthenia gravis, AChR antibody positive G70.00 Mixed stress and urge incontinence N39.46 Ambulatory dysfunction R26.2 Home Health Attestation I certify that this patient is under my care and that I, or a physicians podiatry assistant working with me, had a face to-face encounter that meets the home health [id number] encounter requirements with this patient. The encounter with the patient was in whole, or in part, for the following medical condition, which is the primary reason for home health care (list medical condition): stool impaction- ambulatory dysfunction I certify that, based on my findings, the following services are medically necessary home health services: My clinical findings support the need for the above services because: OT Assess ADL Status and Restore Function w ADLs PT Assessment for Endurance / Balance / Strength PT Eval for Safety and Mobility PT Eval for Safety, Gait Training, Assistive Devices PT Gait and Balance Training, Strengthening and Safety Further, I certify that my clinical findings support that this patient is homebound (i.e. absences from home require considerable and taxing effort and are for medical reasons or jew services or infrequently or of short duration when for other reasons) because: Supportive Aid - Walker Transportation Assistance/Unable to Leave Home Unassisted Certification for Home Health Services: Based on the above findings, I certify that this patient is confined to the home and needs intermittent detention care, physical therapy and/or speech therapy or continues to need occupational therapy. The patient is under my care, and I have initiated the establishment of the plan of care. This patient will be followed by a physician who will periodically review the plan of care.
== END 2022-02-20 14:30 | disposition home health service (06) ==
LOC: 3N 12:36 → ED 12:36 → 3N 20:14 → SUATTDRO 02-09 16:59

== ENCOUNTER 2022-03-01 10:04 | Observation (INO) ==
[2022-03-01] MEDS ORDERED: SODIUM CHLORIDE 0.9% 1000ML 1,000 ML IV ONE (10:30)
[2022-03-01] MEDS ORDERED: ONDANSETRON INJ 2 MG/ML 2 ML VIAL IV STA ×2 (10:50→15:15)
[2022-03-01] MEDS ORDERED: FAMOTIDINE 20MG IV PUSH 20 MG/5 ML SYR IV STA (10:50)
--- NOTE | 2022-03-01 10:59 | XRay Report ---
XR chest 1V portable CLINICAL HISTORY: Atypical chest pain TECHNIQUE: Single frontal radiograph of the chest was obtained. Comparison: Comparison is made to chest radiograph 02/08/2022 FINDINGS: Pacemaker defibrillator is seen. Calcified aortic knob is seen. Degenerative changes are seen in the bilateral shoulder joints and thoracic spine. The lungs are clear. No evidence of pleural effusion or pneumothorax. IMPRESSION: No acute chest disease. ACT 112: Negative or not required by law. Electronically signed by: Roni Herring M.D. 03/01/2022 10:57 AM
[2022-03-01 11:05] LABS: Basophils # (auto) 0.01 K/uL (0-0.2); Basophils % (auto) 0.1 %; Eosinophils # (auto) 0.09 K/uL (0-0.5); Eosinophils % (auto) 1.3 %; Hematocrit (blood only) 45.7 % (37-47); Hemoglobin 15.2 g/dL (12.0-16.0); Immature Granulocytes # (auto) 0.02 K/uL (0.00-0.02); Immature Granulocytes % (auto) 0.3 %; Lymphocytes # (auto) 1.09 K/uL (1.2-3.4); Lymphocytes % (auto) 15.3 %; Mean Corpuscular Hemoglobin 33.5 pg (25-34); Mean Corpuscular Hgb Conc 33.3 g/dL (32-36); Mean Corpuscular Volume 100.7 fL (80-100); Mean Platelet Volume 10.6 fL (7.4-10.4); Monocytes # (auto) 0.49 K/uL (0.11-0.59); Monocytes % (auto) 6.9 %; Neutrophils # (auto) 5.44 K/uL (1.4-6.5); Neutrophils % (auto) 76.1 %; Platelet Count 198 K/uL (130-400); RDW Coefficient of Variation 13.6 % (11.5-14.5); RDW Standard Deviation 50.6 fL (36.4-46.3); Red Blood Count 4.54 M/uL (4.2-5.4); White Blood Count 7.14 K/uL (4.8-10.8)
[2022-03-01 11:16] LABS: Prothrombin Time 11.1 Seconds (9.0-12.0)
[2022-03-01 11:38] LABS: Troponin I High Sensitivity 20.5 pg/ml (0-14)
[2022-03-01 11:45] LABS: Appearance Urine Clear (Clear); Bacteria Urine Automated Negative (Negative); Bilirubin Urine Negative (Negative); Blood Urine Negative (Negative); Color Urine Yellow; Epithelial Cell Urine Auto >30 /lpf (0-5); Glucose Urine UA Negative (Negative); Ketones Urine 3+ (Negative); Leukocyte Esterase Urine Negative (Negative); Nitrite Urine Negative (Negative); Protein Urine 2+ (Negative); RBC Urine Automated 0-4 /hpf (0-4); Specific Gravity Urine 1.014 (1.000-1.030); Urobilinogen Urine Negative (Negative); pH Urine 6.5 (4.5-7.5)
[2022-03-01 11:45] LABS: Alanine Aminotransferase 15 U/L (7-52); Albumin Globulin Ratio 1.2 (0.9-2); Albumin Level 4.2 gm/dl (3.4-5.0); Alkaline Phosphatase 65 U/L (34-104); Anion Gap 11 (3-11); BUN Creatinine Ratio 12.8 (10-20); Bilirubin,Total 1.1 mg/dl (0.2-1.0); Blood Urea Nitrogen 11 mg/dl (6-23); Calcium 9.6 mg/dl (8.5-10.1); Carbon Dioxide 29 mmol/L (21-32); Chloride 100 mmol/L (98-107); Est GFR (African American) 69.4 ml/min; Est GFR (Non-African American) 59.9 ml/min; Globulin 3.4 gm/dl (2.5-4.0); Glucose 88 mg/dl (70-99(Fasting)); Lipase 22 U/L (11-82); Magnesium 2.1 mg/dl (1.7-2.4); Phosphorus 3.3 mg/dl (2.5-4.9); Sodium 140 mmol/L (136-145); Total Protein 7.6 gm/dl (6.0-8.3)
[2022-03-01 12:08] LABS: Aspartate Aminotransferase 23 U/L (13-39); Potassium 4.2 mmol/L (3.5-5.1)
[2022-03-01] MEDS ORDERED: OPTIRAY 320 100ml IV ONE (12:18)
[2022-03-01 12:33] LABS: Influenza A virus by PCR Negative (Neg); Influenza B virus by PCR Negative (Neg); RSV by PCR Negative (Neg); SARS CoV2 RNA(COVID-19) InHosp NEGATIVE (Negative)
--- NOTE | 2022-03-01 12:44 | CT Scan Report ---
ABDOMEN AND PELVIS CT WITH IV CONTRAST CT DOSE: 371.65 mGy.cm HISTORY: Acute generalized abdominal pain with nausea and vomiting abd pain, n/v TECHNIQUE: Multiaxial CT images of the abdomen and pelvis were performed following the IV administrat ion of 94 cc of Optiray, A dose lowering technique was utilized adhering to the principles of ALARA. COMPARISON STUDY: CT abdomen and pelvis 02/07/2022 FINDINGS: Cardiomegaly. Left subclavian pacer. Trace pleural effusions. Progressively worsened ground glass opacities of the basal left lower lobe. Mild subsegmental right basilar atelectasis. No pneumat osis or pneumoperitoneum. The study is degraded by respiratory motion artifact and upper extremity po sitioning. The spleen and adrenal glands are unremarkable. 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 There are a few scattered cystic foci of the pancreas measuring up to 9 mm within the pancreatic tail suggestive of sidebranch IPMN's. Cholecystectomy with likely postsurgical pneumob kimber. The liver is otherwise unremarkable. Patency of the hepatic and portal veins. 1.2 cm left renal cyst. No hydronephrosis. The visualized urinary bladder is unremarkable. Atheroscle rosis of the aorta without aneurysm. Borderline enlarged iliac chain lymph nodes measure up to 10 mm on the right, mildly increased in size from the prior study. No bowel obstruction. Moderate circumfer ential wall thickening of the inferior rectum and anorectal junction. Upstream gaseous distention of the rectum. Colonic diverticulosis without acute diverticulitis identified. Mild generalized body wal l and mesenteric edema. The appendix is reportedly surgically absent. Healing subacute anterior rib fractures. T12 chronic compression deformity with kyphoplasty. Unchange d severe T11 compression deformity. Left hip total joint arthroplasty. IMPRESSION: 1. Moderate wall thickening of the inferior rectum and anorectal junction is suspicious for a nonspec ific proctitis. 2. No bowel obstruction or pneumoperitoneum. 3. Trace pleural effusions with groundglass opacities of the basal left lower lobe suggestive of atel ectasis versus pneumonitis. 4. Colonic diverticulosis. 5. Additional findings as above. ACT 112: Negative or not required by law. The above report was generated using voice recognition software. It may contain grammatical, syntax o r spelling errors. Electronically signed by: Raj Kuo M.D. 03/01/2022 12:41 PM
--- NOTE | 2022-03-01 12:49 | Emergency Department Note ---
Impression & Plan Pneumonia, Intractable vomiting with nausea, Myasthenia gravis, AChR antibody positive ED Provider Note NAME: OLE PATTON AGE: 87 SEX: F ARRIVES VIA: Walk-In INFORMANT: Patient, daughter ED PROVIDER(S): Timo Cole MD CHIEF COMPLAINT: Nausea and vomiting, shortness of breath PLAN: Disposition: Admit MEDICAL DECISION MAKING: The patient is a pleasant 87-year-old woman with a past medical history of MGUS, myasthenia gravis, osteoporosis, urinary retention/stress incontinence, hypertension, GERD, diabetes, NNAMDI, CKD, chronic constipation who presents to the emergency department accompanied by her daughter for evaluation of nausea vomiting that began last night into today. The patient was recently admitted to this facility from 02/09-02/20 for fecal impaction and debility. Of note, the patient was recommended for discharge to rehab but insurance did not cover this and so was discharged to home. She reports she not take her pyridostigmine this morning because of her nausea and vomiting. She reports feeling short of breath but denies cough or congestion. She denies recurrence of her prior constipation and has been moving her bowels. On arrival the patient is acute on chronically ill-appearing but no acute distress, afebrile stable vital signs. She has slight drooping of her left eyelid which her daughter and the patient confirm fluctuates and is her baseline for myasthenia gravis. EKG without overt acute ischemia. Chest x-ray negative for acute cardiopulmonary process. WBC, H/H and platelets within normal limits. Chemistry without metabolic acidosis. Electrolytes and LFTs without significant abnormality. High-se nsitivity troponin was 20.5 with delta 2-hour high-sensitivity troponin unchanged. Lipase was not elevated. UA without convincing evidence of infection. CT of the abdomen pelvis was performed and demonstrates moderate wall thickening of the inferior rectum and anorectal junction suspicious for nonspecific proctitis likely secondary to the patient's severe constipation on recent admission. Note is made of trace pleural effusions with groundglass opacities of the basal left lower lobe that has progressed since prior. Given the patient's symptoms of shortness of breath with lung findings that have worsened there is suspicion for underlying pneumonia. Plan initially was to proceed with discharge as the patient briefly did feel improved and so treatment was to be started with cefdinir. During her ED observation the patient was able to take her home pyridostigmine. However, upon reevaluation the patient was again feeling nauseated and did not feel safe with plan for outpatient manageme nt. Her daughter and also were concerned that if her GI symptoms persist she would not be able to take her physostigmine and she would quickly decline into a myasthenia crisis. Thus, we will proceed with admission for further management. Case was discussed with Dr. Braxton, [facility] hospitalist, who will evaluate the patient for admission. Triage Nursing notes reviewed and agree them. Prior medical records reviewed Vital Signs: reviewed and remarkable for no significant abnormalities Differential diagnosis: Gastroenteritis, food borne illness, infections, appendicitis, diverticulitis, inflammatory bowel disease, obstruction, GI bleed, biliary pathology, volvulus, as well as other pathologies. ER treatment provided: See below. Diagnostics interpreted by me: ECG: Normal sinus rhythm, 90 bpm, no ectopy, no overt ST elevation or depre ssion, QTC 457, QRS 74. Cardiac Monitoring: An order for continuous cardiac monitoring was placed and demonstrated normal sinus rhythm, 90 bpm, no ectopy. Laboratory studies: See below Imaging studies: See below Consultation(s): Case was discussed with Dr. Braxton, [facility] hospitalist, who will evaluate the patient for admission. HPI: The patient is a pleasant 87-year-old woman with a past medical history of MGUS, myasthenia gravis, osteoporosis, urinary retention/stress incontinence, hypertension, GERD, diabetes, NNAMDI, CKD, chronic constipation who presents to the emergency department accompanied by her daughter for evaluation of nausea vomiting that began last night into today. The patient was recently admitted to this facility from 02/09-02/20 for fecal impaction and debility. Of note, the patient was recommended for discharge to rehab but insurance did not cover this and so was discharged to home. She reports she not take her pyridostigmine this morning because of her nausea and vomiting. She reports feeling short of breath but denies cough or congestion. She denies recurrence of her prior constipation and has been moving her bowels. ROS: See above HPI for pertinent positives & negatives. A total of 10 systems reviewed and were otherwise negative. VITALS:See Below PHYSICAL EXAMINATION: GENERAL: Awake, alert, acute on chronically ill-appearing, in no distress HENT: Normocephalic, atraumatic. Oropharynx with dry mucous membranes and otherwise unremarkable. EYES: Normal conjunctiva. Sclera non-icteric. NECK: Supple. No nuchal rigidity. FROM. No JVD. RESPIRATORY: Diminished left base and otherwise clear. CARDIAC: Regular rate, normal rhythm. Extremities warm and well perfused. Pulses equal. ABDOMEN: Soft, non-distended. No tenderness to palpation. No rebound or guar ding. No masses. RECTAL: Deferred. MUSCULOSKELETAL: Chest examination reveals no tenderness. The back is symmetrical on inspection without obvious abnormality. There is no CVA tenderness to palpation. No joint edema. LOWER EXTREMITIES: Calves are equal size bilaterally and non-tender. No edema. No discoloration. NEURO: Slight left eye drooping which is patient's baseline in the setting of her myasthenia gravis. Otherwise, no focal sensory or motor deficits noted. SKIN: No rash or jaundice noted. Timo Cole MD Past Med/Surg History Medical History Acute back pain Acute UTI Anemia Cardiac defibrillator in place Cardiomyopathy Carotid artery stenosis Chronic pancreatitis CKD (chronic kidney disease) stage 3, GFR 30-59 ml/min Colitis Degenerative joint disease (DJD) of hip Diabetes mellitus, type 2 Diabetic nephropathy Diabetic peripheral neuropathy Diverticulitis Diverticulosis of colon Duodenal ulcer Fall Fall GERD (gastroesophageal reflux disease) GERD without esophagitis HLD (hyperlipidemia) HTN (hypertension), benign Hypercholesterolemia Hypothyroid IBS (irritable bowel syndrome) ICD (implantable cardioverter-defibrillator) battery depletion Insomnia Lumbar canal stenosis Lumbar spondylosis Nocturia Nonischemic cardiomyopathy Osteoarthritis Osteoporosis Presence of cardiac pacemaker Pulmonary nodule Rib fracture 09/17/18 R/T FALL. D/C'D TO [facility]. Scaphoid fracture of wrist Urge incontinence of urine Vitamin D deficiency, unspecified Surgical History History of cardiac cath PER PT, 5-10 YEARS AGO AT [facility] - REASON? - NO STENTS/ANGIOPLASTY History of cholecystectomy History of colonoscopy History of ERCP w/ sphincterotomy & CBD stent History of esophagogastroduodenoscopy (EGD) History of vertebroplasty T12 S/P appendectomy S/P hysterectomy S/P ICD (internal cardiac defibrillator) procedure Biventricular AICD placed in 2007, Generator Change-out 02/15/2020 -- now has a [employer] Claria [employer]IST-D Bi-V AICD. S/P kyphoplasty S/P partial colectomy S/P rotator cuff surgery Family History Son Diabetes Sister Breast cancer Denies family history of Ovarian cancer Prostate cancer Hearing loss Coronary heart disease No family history of adverse response to anesthesia No family history of bleeding disorder Heart disease Allergies Myocardial infarction Colorectal cancer Cancer Hypertension Stroke Asthma Social History Smoking Status: Never smoker Second Hand Exposure: No; Hx Alcohol Use: No Hx Substance Use: No Preferred Language: Cymro Communication Ability: Effective Visual Impairment: No Limitations Hearing Ability: Normal Weed Cooking Operator Required: No Beliefs That Will Affect Care: None marital status: Current Living Situation: Spouse current occupational status: retired current occupation: retired from career with [employer] How many Children do You have: 6 Other Information That Helps Us Care for You: No Feels Safe at Home: Yes Safety Concerns: Feels Safe At This Time Childhood Exposure to Second-Hand Smoke: No caffeine: Yes Dental Care, Regularly: No Physical Activity Frequency: Does not Exercise Seatbelt Use: always Sunscreen Use: No Assistive Devices: Cane Allergies Allergies Allergy/AdvReac Type Severity Reaction Status Date / Time celecoxib Allergy Severe SX OF Verified 03/01/22 12:10 STROKE, FACIAL NUMBNESS, UNABLE TO SPEAK fesoterodine [From Toviaz] Allergy Unknown Unknown Verified 03/01/22 12:10 solifenacin [From Vesicare] Allergy Unknown Unknown Verified 03/01/22 12:10 morphine AdvReac Intermediate Confusion Verified 03/01/22 12:10 ciprofloxacin AdvReac Mild UPSET Verified 03/01/22 12:10 STOMACH metronidazole AdvReac Mild N/V Verified 03/01/22 12:10 Home Meds Home Medications Medication Instructions Recorded Confirmed cholecalciferol (vitamin D3) 50 2,000 unit PO QAM 08/05/18 03/01/22 mcg (2,000 unit) tablet (Vitamin D3) ascorbic acid (vitamin C) 500 mg 500 mg PO QAM tab 02/26/19 03/01/22 tablet multivit with 1 tab PO QAM 08/21/20 03/01/22 [id number] 8 mg iron-400 mcg-300 mcg tablet (Centrum Silver Women) acetaminophen 500 mg tablet 1,000 mg PO TID PRN 01/15/21 03/01/22 vitamin A 2,400 mcg capsule 2,400 mcg PO QAM cap 01/23/21 03/01/22 vitamin E 100 unit capsule 100 unit PO QAM cap 01/23/21 03/01/22 cyanocobalamin (vitamin B-12) 500 mcg PO QAM tab 03/26/21 03/01/22 1,000 mcg tablet (Vitamin B-12) glucosamine-chondroitin 250 mg-200 1 tab PO QAM 05/13/21 03/01/22 mg tablet (Osteo Bi-Flex) diphenhydramine 25 2 tab PO HS 12/15/21 03/01/22 mg-acetaminophen 500 mg tablet (Tylenol PM Extra Strength) alendronate 70 mg tablet 70 mg PO WK 02/07/22 03/01/22 famotidine 10 mg tablet 10 mg PO QAM 03/01/22 03/01/22 levothyroxine 137 mcg tablet 137 mcg PO QAM 03/01/22 03/01/22 lisinopril 10 mg tablet 10 mg PO QAM 03/01/22 03/01/22 Previous Rx's Medication Instructions Recorded atorvastatin 40 mg tablet 40 mg PO HS #90 tab 04/30/21 pantoprazole 40 mg tablet,delayed 40 mg PO QAM #30 tab 05/07/21 release oxybutynin chloride 5 mg 5 mg PO HS #30 tab 10/01/21 tablet,extended release 24 hr gabapentin 300 mg capsule 600 mg PO HS #60 cap 11/19/21 pyridostigmine bromide 60 mg 60 mg PO TID 90 Days #270 tab 01/31/22 tablet (Mestinon) sennosides 8.6 mg-docusate sodium 1 tab PO BID #60 tab 02/27/22 50 mg tablet (Senokot-S) Saccharomyces boulardii 250 mg 250 mg PO BID #20 cap 03/01/22 capsule (Florastor) cefdinir 300 mg capsule 300 mg PO BID 7 Days #14 cap 03/01/22 famotidine 20 mg tablet 20 mg PO BID #20 tab 03/01/22 ondansetron 4 mg disintegrating 4 mg PO Q6H PRN #14 tab 03/01/22 tablet Results & Data (ED) Vital Signs Vital Signs - 24 hr 03/01/22 10:12 03/01/22 10:23 03/01/22 10:51 Temperature 36.3 C L Temperature Source Temporal Artery Scan Pulse Rate 103 H Pulse Rate [Apical] 83 83 Pulse Rhythm [Apical] Regular Irregular Pulse Strength [Apical] Normal Normal Respiratory Rate 18 16 16 Respiratory Effort / Characteristics Non-Labored Spontaneous Non-Labored Spontaneous Respiratory Depth Normal Normal Respiratory Pattern Regular Regular Blood Pressure 171/92 H Blood Pressure [Right Arm] 170/102 H 160/104 H Blood Pressure Mean 118 Blood Pressure Mean [Right Arm] 124 122 Blood Pressure Position [Right Arm] Lying Lying Pulse Oximetry 96 94 95 Oxygen Delivery Method Room Air Room Air Room Air Sepsis Recent Fever Within 48 Hours No Sepsis New/Unexplained Change in Mental Status No Sepsis Action Taken by Nursing No Action Required 03/01/22 12:05 03/01/22 14:00 03/01/22 16:00 Temperature Temperature Source Pulse Rate Pulse Rate [Apical] 70 89 84 Pulse Rhythm [Apical] Regular Regular Regular Pulse Strength [Apical] Normal Normal Normal Respiratory Rate 15 15 16 Respiratory Effort / Characteristics Non-Labored Spontaneous Non-Labored Spontaneous Non-Labored Spontaneous Respiratory Depth Normal Normal Normal Respiratory Pattern Regular Regular Regular Blood Pressure Blood Pressure [Right Arm] 142/85 H 148/89 H 162/60 H Blood Pressure Mean Blood Pressure Mean [Right Arm] 104 108 94 Blood Pressure Position [Right Arm] Lying Lying Lying Pulse Oximetry 95 94 94 Oxygen Delivery Method Room Air Room Air Room Air Sepsis Recent Fever Within 48 Hours Sepsis New/Unexplained Change in Mental Status Sepsis Action Taken by Nursing Laboratory Data Attestation: I reviewed the patient's lab results. Result diagrams: 03/01/22 10:47 03/01/22 10:47 Lab Results 03/01/22 03/01/22 03/01/22 Range/Units 10:47 10:47 10:47 WBC 7.14 (4.8-10.8) K/uL RBC 4.54 (4.2-5.4) M/uL Hgb 15.2 (12.0-16.0) g/dL Hct 45.7 (37-47) % MCV 100.7 H (80-100) fL MCH 33.5 (25-34) pg MCHC 33.3 (32-36) g/dL RDW Std Deviation 50.6 H (36.4-46.3) fL RDW Coeff of Radha 13.6 (11.5-14.5) % Plt Count 198 (130-400) K/uL MPV 10.6 H (7.4-10.4) fL Immature Gran % (Auto) 0.3 % Neut % (Auto) 76.1 % Lymph % (Auto) 15.3 % [place] % (Auto) 6.9 % Eos % (Auto) 1.3 % Baso % (Auto) 0.1 % Neut # (Auto) 5.44 (1.4-6.5) K/uL Lymph # (Auto) 1.09 L (1.2-3.4) K/uL [place] # (Auto) 0.49 (0.11-0.59) K/uL Eos # (Auto) 0.09 (0-0.5) K/uL Baso # (Auto) 0.01 (0-0.2) K/uL Immature Gran # (Auto) 0.02 (0.00-0.02) K/uL PT 11.1 (9.0-12.0) Seconds INR 1.0 (0.9-1.1) Sodium 140 (136-145) mmol/L Potassium 4.2 (3.5-5.1) mmol/L Chloride 100 (98-107) mmol/L Carbon Dioxide 29 (21-32) mmol/L Anion Gap 11 (3-11) BUN 11 (6-23) mg/dl Creatinine 0.86 (0.6-1.2) mg/dl Est Cr Clr Drug Dosing Not Reportable Est GFR ( Amer) 69.4 ml/min Est GFR (Non-Af Amer) 59.9 ml/min BUN/Creatinine Ratio 12.8 (10-20) Glucose 88 (70-99(Fasting)) mg/dl Calcium 9.6 (8.5-10.1) mg/dl Phosphorus 3.3 (2.5-4.9) mg/dl Magnesium 2.1 (1.7-2.4) mg/dl Total Bilirubin 1.1 H (0.2-1.0) mg/dl AST 23 (13-39) U/L ALT 15 (7-52) U/L Alkaline Phosphatase 65 (34-104) U/L Troponin I High Sens 20.5 H (0-14) pg/ml Total Protein 7.6 (6.0-8.3) gm/dl Albumin 4.2 (3.4-5.0) gm/dl Globulin 3.4 (2.5-4.0) gm/dl Albumin/Globulin Ratio 1.2 (0.9-2) Lipase 22 (11-82) U/L Urine Color Urine Appearance (Clear) Urine pH (4.5-7.5) Ur Specific [place] (1.000-1.030) Urine Protein (Negative) Urine Glucose (UA) (Negative) Urine Ketones (Negative) Urine Blood (Negative) Urine Nitrite (Negative) Urine Bilirubin (Negative) Urine Urobilinogen (Negative) Ur Leukocyte Esterase (Negative) Urine WBC (Auto) (0-5) /hpf Urine RBC (Auto) (0-4) /hpf U Hyaline Cast (Auto) (0-5) /lpf U Epithel Cells (Auto) (0-5) /lpf Urine Bacteria (Auto) (Negative) SARS-CoV-2 (PCR) (Negative) Influenza Type A (PCR) (Neg) Influenza Type B (PCR) (Neg) RSV (RT-PCR) (Neg) 03/01/22 03/01/22 03/01/22 Range/Units 11:05 11:41 13:00 WBC (4.8-10.8) K/uL RBC (4.2-5.4) M/uL Hgb (12.0-16.0) g/dL Hct (37-47) % MCV (80-100) fL MCH (25-34) pg MCHC (32-36) g/dL RDW Std Deviation (36.4-46.3) fL RDW Coeff of Radha (11.5-14.5) % Plt Count (130-400) K/uL MPV (7.4-10.4) fL Immature Gran % (Auto) % Neut % (Auto) % Lymph % (Auto) % [place] % (Auto) % Eos % (Auto) % Baso % (Auto) % Neut # (Auto) (1.4-6.5) K/uL Lymph # (Auto) (1.2-3.4) K/uL [place] # (Auto) (0.11-0.59) K/uL Eos # (Auto) (0-0.5) K/uL Baso # (Auto) (0-0.2) K/uL Immature Gran # (Auto) (0.00-0.02) K/uL PT (9.0-12.0) Seconds INR (0.9-1.1) Sodium (136-145) mmol/L Potassium (3.5-5.1) mmol/L Chloride (98-107) mmol/L Carbon Dioxide (21-32) mmol/L Anion Gap (3-11) BUN (6-23) mg/dl Creatinine (0.6-1.2) mg/dl Est Cr Clr Drug Dosing Est GFR ( Amer) ml/min Est GFR (Non-Af Amer) ml/min BUN/Creatinine Ratio (10-20) Glucose (70-99(Fasting)) mg/dl Calcium (8.5-10.1) mg/dl Phosphorus (2.5-4.9) mg/dl Magnesium (1.7-2.4) mg/dl Total Bilirubin (0.2-1.0) mg/dl AST (13-39) U/L ALT (7-52) U/L Alkaline Phosphatase (34-104) U/L Troponin I High Sens 20.5 H (0-14) pg/ml Total Protein (6.0-8.3) gm/dl Albumin (3.4-5.0) gm/dl Globulin (2.5-4.0) gm/dl Albumin/Globulin Ratio (0.9-2) Lipase (11-82) U/L Urine Color Yellow Urine Appearance Clear (Clear) Urine pH 6.5 (4.5-7.5) Ur Specific [place] 1.014 (1.000-1.030) Urine Protein 2+ H (Negative) Urine Glucose (UA) Negative (Negative) Urine Ketones 3+ H (Negative) Urine Blood Negative (Negative) Urine Nitrite Negative (Negative) Urine Bilirubin Negative (Negative) Urine Urobilinogen Negative (Negative) Ur Leukocyte Esterase Negative (Negative) Urine WBC (Auto) 1-5 (0-5) /hpf Urine RBC (Auto) 0-4 (0-4) /hpf U Hyaline Cast (Auto) 1-5 (0-5) /lpf U Epithel Cells (Auto) >30 H (0-5) /lpf Urine Bacteria (Auto) Negative (Negative) SARS-CoV-2 (PCR) NEGATIVE (Negative) Influenza Type A (PCR) Negative (Neg) Influenza Type B (PCR) Negative (Neg) RSV (RT-PCR) Negative (Neg) Administered Medications Discontinued Medications Cefdinir (Cefdinir 300 Mg Cap) 300 mg PO ONE STA Stop: 03/01/22 15:48 Last Admin: 03/01/22 16:05 Dose: 300 mg Documented by: [id number] Sodium Chloride (Nss 1000ml) 1,000 mls @ 999 mls/hr IV .Q1H1M ONE Stop: 03/01/22 11:30 Last Infusion: 03/01/22 11:49 Dose: 0 mls/hr Documented by: [id number] Admin: 03/01/22 10:45 Dose: 999 mls/hr Documented by: [id number] Famotidine (Pepcid 20mg Iv Push) 20 mg in 5 mls @ 2.5 mls/min IV NOW STA Stop: 03/01/22 10:51 Last Admin: 03/01/22 11:19 Dose: 2.5 mls/min Documented by: [id number] Ioversol (Optiray 320 100ml) 94 ml IV ONCE ONE Stop: 03/01/22 12:19 Last Admin: 03/01/22 12:18 Dose: 94 ml Documented by: [id number] Ondansetron HCl (Ondansetron Inj 2 Mg/Ml 2 Ml Vial) 4 mg IV NOW STA Stop: 03/01/22 10:51 Last Admin: 03/01/22 11:19 Dose: 4 mg Documented by: [id number] Ondansetron HCl (Ondansetron Inj 2 Mg/Ml 2 Ml Vial) 4 mg IV NOW STA Stop: 03/01/22 15:16 Last Admin: 03/01/22 15:23 Dose: 4 mg Documented by: [id number] Imaging Data Radiologist's Impression: Chest X-Ray 03/01/22 10:31 XR chest 1V portable CLINICAL HISTORY: Atypical chest pain TECHNIQUE: Single frontal radiograph of the chest was obtained. Comparison: Comparison is made to chest radiograph 02/08/2022 FINDINGS: Pacemaker defibrillator is seen. Calcified aortic knob is seen. Degenerative changes are seen in the bilateral shoulder joints and thoracic spine. The lungs are clear. No evidence of pleural effusion or pneumothorax. IMPRESSION: No acute chest disease. ACT 112: Negative or not required by law. Electronically signed by: Roni Herring M.D. 03/01/2022 10:57 AM Abdomen/Pelvis CT 03/01/22 10:[address] WITH IV CONTRAST CT DOSE: 371.65 mGy.cm HISTORY: Acute generalized abdominal pain with nausea and vomiting abd pain, n/v TECHNIQUE: Multiaxial CT images of the abdomen and pelvis were performed following the IV administration of 94 cc of Optiray, A dose lowering technique was utilized adhering to the principles of ALARA. COMPARISON STUDY: CT abdomen and pelvis 02/07/2022 FINDINGS: Cardiomegaly. Left subclavian pacer. Trace pleural effusions. Progressively worsened groundglass opacities of the basal left lower lobe. Mild subsegmental right basilar atelectasis. No pneumatosis or pneumoperitoneum. The study is degraded by respiratory motion artifact and upper extremity positioning. The spleen and adrenal glands are unremarkable. Splenic calcifications compatible with chronic pancreatitis. There are a few scattered cystic foci of the pancreas measuring up to 9 mm within the pancreatic tail suggestive of sidebranch IPMN's. Cholecystectomy with likely postsurgical pneumobilia. The liver is otherwise unremarkable. Patency of the hepatic and portal veins. 1.2 cm left renal cyst. No hydronephrosis. The visualized urinary bladder is unremarkable. Atherosclerosis of the aorta without aneurysm. Borderline enlarged iliac chain lymph nodes measure up to 10 mm on the right, mildly increased in size from the prior study. No bowel obstruction. Moderate circumferential wall thickening of the inferior rectum and anorectal junction. Upstream gaseous distention of the rectum. Colonic diverticulosis without acute diverticulitis identified. Mild generalized body wall and mesenteric edema. The appendix is reportedly surgically absent. Healing subacute anterior rib fractures. T12 chronic compression deformity with kyphoplasty. Unchanged severe T11 compression deformity. Left hip total joint arthroplasty. IMPRESSION: 1. Moderate wall thickening of the inferior rectum and anorectal junction is suspicious for a nonspecific proctitis. 2. No bowel obstruction or pneumoperitoneum. 3. Trace pleural effusions with groundglass opacities of the basal left lower lo be suggestive of atelectasis versus pneumonitis. 4. Colonic diverticulosis. 5. Additional findings as above. ACT 112: Negative or not required by law. The above report was generated using voice recognition software. It may contain grammatical, syntax or spelling errors. Electronically signed by: Raj Kuo M.D. 03/01/2022 12:41 PM Discharge Plan Visit Data Chief Complaint: Abdominal Pain Stated Complaint: VOMITING, ALLERGIC REACTION ED Provider: Timo Cole Discharge Problem: Pneumonia, Intractable vomiting with nausea, Myasthenia gravis, AChR antibody positive Patient Disposition: Admitted As Inpatient Discharge Instructions Interventions: ED Discharge Assessment Last Done: 03/01/22 20:35
[2022-03-01] MEDS ORDERED: CEFDINIR 300 MG CAP PO STA (15:47)
--- NOTE | 2022-03-01 17:24 | History & Physical Report ---
Date of Service March 01, 2022 Assessment & Plan (1) Intractable vomiting with nausea: Plan: - Supportive care with IVF, prn Zofran. - PT/OT to evaluate patient. - GI consult placed, appreciate their recommendations. (2) Swallowing difficulty: Plan: - Reportedly has difficulty swallowing, chokes on water. Not new. - Will have speech eval. (3) GERD (gastroesophageal reflux disease): Plan: - Continue Pepcid and PPI. (4) Myasthenia gravis, AChR antibody positive: Plan: - Continue pyridostigmine 30mg TID. (5) CKD (chronic kidney disease) stage 3, GFR 30-59 ml/min: Plan: - Baseline creatinine 0.81.1; at baseline on admission. (6) Cardiomyopathy: Plan: - History of, s/p ICD with improvement in EF from 25% to 60%. - No evidence today of pulmonary edema or JVD. (7) HLD (hyperlipidemia): Plan: - Continue statin. (8) Hypothyroidism: Plan: - Continue levothyroxine. (9) HTN (hypertension), benign: Plan: - Continue lisinopril. (10) Mixed stress and urge incontinence: Plan: - Continue oxybutynin. (11) Diabetes mellitus, type 2: Plan: - No current home meds. - Did well with regular diet on last admision. Plan: - Admit to med/surg. - SCDs, Heparin for DVT ppx. - DNR/DNI. History of Present Illness Chief Complaint: nausea, vomiting Primary Care Provider: Adriano Castellanos MD Katty Reynolds is an 87 y/o female with a past medical history of MGUS, myasthenia gravis, osteoporosis, urinary retention/stress incontinence, hypertension, GERD, diabetes, NNAMDI, CKD, chronic constipation who presents today for evaluation of nausea and vomiting that began last evening. She was recently discharged on 02/20 after a nearly 2-week hospitalization for fecal impaction and generalized weakness. It was hopeful that she would be discharged to rehab facility, however her insurance did not approve it. She had been doing well initially for the first couple days at home, however the past 2 days has developed nonbloody diarrhea, nausea, and vomiting. She is insure how many times she has vomited. She has not had anything to eat in the past 2 days. Also complaining of vague, generalized abdominal pain. Last BM was today, however it was diarrhea but she does report that she had a formed stool yesterday. Denies fever or chills at home, chest pain, palpitation, shortness of breath, cough, hematochezia, melena, hematemesis. Due to patient's frequent emesis at home and myasthenia gravis, family expressed concern that she may be unable to be compliant with her medications. In ED, she is hypertensive, otherwise vital signs stable. Labs unremarkable. CXR unremarkable. CT A/P showed moderate wall thickening of the inferior rectum and anorectal junction. No bowel obstruction or pneumoperitoneum. Allergies Allergy/AdvReac Type Severity Reaction Status Date / Time celecoxib Allergy Severe SX OF Verified 03/01/22 12:10 STROKE, FACIAL NUMBNESS, UNABLE TO SPEAK fesoterodine [From Toviaz] Allergy Unknown Unknown Verified 03/01/22 12:10 solifenacin [From Vesicare] Allergy Unknown Unknown Verified 03/01/22 12:10 morphine AdvReac Intermediate Confusion Verified 03/01/22 12:10 ciprofloxacin AdvReac Mild UPSET Verified 03/01/22 12:10 STOMACH metronidazole AdvReac Mild N/V Verified 03/01/22 12:10 Home Medications Medication Instructions Recorded Confirmed Type cholecalciferol (vitamin D3) 50 2,000 unit PO QAM 08/05/18 03/01/22 History mcg (2,000 unit) tablet (Vitamin D3) ascorbic acid (vitamin C) 500 mg 500 mg PO QAM tab 02/26/19 03/01/22 History tablet multivit with 1 tab PO QAM 08/21/20 03/01/22 History dqwpcbah-tbmn-AS-lutein 8 mg iron-400 mcg-300 mcg tablet (Centrum Silver Women) acetaminophen 500 mg tablet 1,000 mg PO TID PRN 01/15/21 03/01/22 History vitamin A 2,400 mcg capsule 2,400 mcg PO QAM cap 01/23/21 03/01/22 History vitamin E 100 unit capsule 100 unit PO QAM cap 01/23/21 03/01/22 History cyanocobalamin (vitamin B-12) 500 mcg PO QAM tab 03/26/21 03/01/22 History 1,000 mcg tablet (Vitamin B-12) atorvastatin 40 mg tablet 40 mg PO HS #90 tab 04/30/21 03/01/22 Rx pantoprazole 40 mg tablet,delayed 40 mg PO QAM #30 tab 05/07/21 03/01/22 Rx release glucosamine-chondroitin 250 mg-200 1 tab PO QAM 05/13/21 03/01/22 History mg tablet (Osteo Bi-Flex) oxybutynin chloride 5 mg 5 mg PO HS #30 tab 10/01/21 03/01/22 Rx tablet,extended release 24 hr gabapentin 300 mg capsule 600 mg PO HS #60 cap 11/19/21 03/01/22 Rx diphenhydramine 25 2 tab PO HS 12/15/21 03/01/22 History mg-acetaminophen 500 mg tablet (Tylenol PM Extra Strength) pyridostigmine bromide 60 mg 60 mg PO TID 90 Days #270 tab 01/31/22 03/01/22 Rx tablet (Mestinon) alendronate 70 mg tablet 70 mg PO WK 02/07/22 03/01/22 History sennosides 8.6 mg-docusate sodium 1 tab PO BID #60 tab 02/27/22 03/01/22 Rx 50 mg tablet (Senokot-S) Saccharomyces boulardii 250 mg 250 mg PO BID #20 cap 03/01/22 Rx capsule (Florastor) cefdinir 300 mg capsule 300 mg PO BID 7 Days #14 cap 03/01/22 Rx famotidine 10 mg tablet 10 mg PO QAM 03/01/22 03/01/22 History famotidine 20 mg tablet 20 mg PO BID #20 tab 03/01/22 Rx levothyroxine 137 mcg tablet 137 mcg PO QAM 03/01/22 03/01/22 History lisinopril 10 mg tablet 10 mg PO QAM 03/01/22 03/01/22 History ondansetron 4 mg disintegrating 4 mg PO Q6H PRN #14 tab 03/01/22 Rx tablet Past Med/Surg History Medical History Acute back pain Acute UTI Anemia Cardiac defibrillator in place Cardiomyopathy Carotid artery stenosis Chronic pancreatitis CKD (chronic kidney disease) stage 3, GFR 30-59 ml/min Colitis Degenerative joint disease (DJD) of hip Diabetes mellitus, type 2 Diabetic nephropathy Diabetic peripheral neuropathy Diverticulitis Diverticulosis of colon Duodenal ulcer Fall Fall GERD (gastroesophageal reflux disease) GERD without esophagitis HLD (hyperlipidemia) HTN (hypertension), benign Hypercholesterolemia Hypothyroid IBS (irritable bowel syndrome) ICD (implantable cardioverter-defibrillator) battery depletion Insomnia Lumbar canal stenosis Lumbar spondylosis Nocturia Nonischemic cardiomyopathy Osteoarthritis Osteoporosis Presence of cardiac pacemaker Pulmonary nodule Rib fracture 09/17/18 R/T FALL. D/C'D TO [facility]. Scaphoid fracture of wrist Urge incontinence of urine Vitamin D deficiency, unspecified Surgical History History of cardiac cath PER PT, 5-10 YEARS AGO AT [facility] - REASON? - NO STENTS/ANGIOPLASTY History of cholecystectomy History of colonoscopy History of ERCP w/ sphincterotomy & CBD stent History of esophagogastroduodenoscopy (EGD) History of vertebroplasty T12 S/P appendectomy S/P hysterectomy S/P ICD (internal cardiac defibrillator) procedure Biventricular AICD placed in 2007, Generator Change-out 02/15/2020 -- now has a [employer] MRI ADULT CAREGIVER-D Bi-V AICD. S/P kyphoplasty S/P partial colectomy S/P rotator cuff surgery Family History Son Diabetes Sister Breast cancer Denies family history of Ovarian cancer Prostate cancer Hearing loss Coronary heart disease No family history of adverse response to anesthesia No family history of bleeding disorder Heart disease Allergies Myocardial infarction Colorectal cancer Cancer Hypertension Stroke Asthma Social History Smoking Status: Never smoker Second Hand Exposure: No; Hx Alcohol Use: No Hx Substance Use: No Preferred Language: Palestinian Communication Ability: Effective Visual Impairment: No Limitations Hearing Ability: Normal Balling Head Tender Required: No Beliefs That Will Affect Care: None marital status: Current Living Situation: Spouse current occupational status: retired current occupation: retired from career with [employer] How many Children do You have: 6 Feels Safe at Home: Yes Childhood Exposure to Second-Hand Smoke: No caffeine: Yes Dental Care, Regularly: No Physical Activity Frequency: Does not Exercise Seatbelt Use: always Sunscreen Use: No Assistive Devices: Cane and Walker Review of Systems Review of Systems: Constitutional: No fever/chills, weakness, fatigue, myalgias, anorexia, night sweats Eyes: No diplopia, no worsening or blurred vision ENT: normal hearing, no trouble swallowing Respiratory: No cough, sputum, dyspnea at rest or on exertion Cardiovascular: No chest pain, tightness or palpitations Abdomen: generalized abdominal pain with nausea and vomiting, diarrhea; no constipation : Denies dysuria, hematuria, increased urgency/frequency, urinary retention Musculoskeletal: No joint pain, calf pain, swelling Neurologic: No weakness, numbness/tingling, or balance problems Psychiatric: No anxiety or depression Skin: No rash or itch Physical Exam Physical Exam: General: awake, alert, no apparent distress Head: Normocephalic, atraumatic ENT: PERRL, EOMI, no pharyngeal exudate, mucous membranes moist Chest: Clear to auscultation, on room air, no adventitious breath sounds Cardiac: Regular rate and rhythm, no murmur, no JVD, normal peripheral pulses, good capillary refill Abdominal: TTP in LLQ; NABS x 4 quadrants, soft, no rebound, guarding or tenderness Extremities: Normal inspection, no peripheral edema or erythema, calfs nontender to palpation Psych: Normal mood and affect Neuro: AAO x 3, strength intact bilaterally and rated 5/5, no motor deficits, speech is clear, no peripheral sensory deficits Skin: no rash or erythema Results & Data Results & Data ([facility]) Vital Signs (Past 12 Hours) Vital Signs Temp Pulse Pulse Resp BP BP Pulse Ox 03/01/22 16:00 84 16 162/60 H 94 03/01/22 14:00 89 15 148/89 H 94 03/01/22 12:05 70 15 142/85 H 95 03/01/22 10:51 83 16 160/104 H 95 03/01/22 10:23 83 16 170/102 H 94 03/01/22 10:12 36.3 C L 103 H 18 171/92 H 96 Laboratory Results Abnormal lab results 03/01/22 03/01/22 03/01/22 Range/Units 10:47 10:47 11:05 MCV 100.7 H (80-100) fL RDW Std Deviation 50.6 H (36.4-46.3) fL MPV 10.6 H (7.4-10.4) fL Lymph # (Auto) 1.09 L (1.2-3.4) K/uL Total Bilirubin 1.1 H (0.2-1.0) mg/dl Troponin I High Sens 20.5 H (0-14) pg/ml Urine Protein 2+ H (Negative) Urine Ketones 3+ H (Negative) U Epithel Cells (Auto) >30 H (0-5) /lpf 03/01/22 Range/Units 13:00 MCV (80-100) fL RDW Std Deviation (36.4-46.3) fL MPV (7.4-10.4) fL Lymph # (Auto) (1.2-3.4) K/uL Total Bilirubin (0.2-1.0) mg/dl Troponin I High Sens 20.5 H (0-14) pg/ml Urine Protein (Negative) Urine Ketones (Negative) U Epithel Cells (Auto) (0-5) /lpf Diagnostic Findings Chest X-Ray 03/01/22 10:31 XR chest 1V portable CLINICAL HISTORY: Atypical chest pain TECHNIQUE: Single frontal radiograph of the chest was obtained. Comparison: Comparison is made to chest radiograph 02/08/2022 FINDINGS: Pacemaker defibrillator is seen. Calcified aortic knob is seen. Degenerative leyla nges are seen in the bilateral shoulder joints and thoracic spine. The lungs are clear. No evidence of pleural effusion or pneumothorax. IMPRESSION: No acute chest disease. ACT 112: Negative or not required by law. Electronically signed by: Roni Herring M.D. 03/01/2022 10:57 AM Abdomen/Pelvis CT 03/01/22 10:[address] WITH IV CONTRAST CT DOSE: 371.65 mGy.cm HISTORY: Acute generalized abdominal pain with nausea and vomiting abd pain, n/v TECHNIQUE: Multiaxial CT images of the abdomen and pelvis were performed following the IV administration of 94 cc of Optiray, A dose lowering technique was utilized adhering to the principles of ALARA. COMPARISON STUDY: CT abdomen and pelvis 02/07/2022 FINDINGS: Cardiomegaly. Left subclavian pacer. Trace pleural effusions. Progressively worsened groundglass opacities of the basal left lower lobe. Mild subsegmental right basilar atelectasis. No pneumatosis or pneumoperitoneum. The study is degraded by respiratory motion artifact and upper extremity positioning. The spleen and adrenal glands are unremarkable. Splenic calcifications compatible with chronic pancreatitis. There are a few scattered cystic foci of the pancreas measuring up to 9 mm within the pancreatic tail suggestive of sidebranch IPMN's. Cholecystectomy with likely postsurgical pneumobilia. The liver is otherwise unremarkable. Patency of the hepatic and portal veins. 1.2 cm left renal cyst. No hydronephrosis. The visualized urinary bladder is unremarkable. Atherosclerosis of the aorta without aneurysm. Borderline enlarged iliac chain lymph nodes measure up to 10 mm on the right, mildly increased in size from the prior study. No bowel obstruction. Moderate circumferential wall thickening of the inferior rectum and anorectal junction. Upstream gaseous distention of the rectum. Colonic diverticulosis without acute diverticulitis identified. Mild generalized body wall and mesenteric edema. The appendix is r eportedly surgically absent. Healing subacute anterior rib fractures. T12 chronic compression deformity with kyphoplasty. Unchanged severe T11 compression deformity. Left hip total joint arthroplasty. IMPRESSION: 1. Moderate wall thickening of the inferior rectum and anorectal junction is suspicious for a nonspecific proctitis. 2. No bowel obstruction or pneumoperitoneum. 3. Trace pleural effusions with groundglass opacities of the basal left lower lobe suggestive of atelectasis versus pneumonitis. 4. Colonic diverticulosis. 5. Additional findings as above. ACT 112: Negative or not required by law. The above report was generated using voice recognition software. It may contain grammatical, syntax or spelling errors. Electronically signed by: Raj Kuo M.D. 03/01/2022 12:41 PM ECG Additional Comments: Normal sinus rhythm Possible Anterolateral infarct , age undetermined Abnormal ECG When compared with ECG of 08-FEB-2022 13:59, Sinus rhythm has replaced Electronic ventricular pacemaker. Code Status & VTE Plan Code Status DNR/DNI. Supervising Physician Co-Signing Physician Notes Patient seen and examined with SUNDAR. Patient is a limited historian and was unfortunately alone in the room. She was previous to the hospital for nausea and vomiting along with constipation but was discharged proximally 9 days ago. She returns with the same issues. She tells me she vomited last night and her last bowel movement was yesterday in the morning. Family was apparently concerned that she would not get her myasthenia medications because of her poor p.o. intake Exam is as noted above, patient does have some tenderness of the left lower quadrant. CT scan shows some proctitis and extensive diverticulosis without diverticulitis. Plan to place in unmonitored observation. PT/OT evaluation speech misael as nursing told me that she was having some difficulty swallowing liquids. We will ask GI to comment further on the patient's ongoing nausea/vomiting/constipation as well. Previously was not a candidate for rehab but this may be reevaluated depending on progress. PG Care Time/CCT Total # of Minutes Spent Total Time Spent with Patient: Total time spent is greater than 50% in coordination of care (as documented) at patient's floor/unit and/or counseling patient: Coding Level of Care Code INT OBSERVATION CARE 70M LVL 3 Diagnoses Intractable vomiting with nausea R11.2 GERD (gastroesophageal reflux disease) K21.9 CKD (chronic kidney disease) stage 3, GFR 30-59 ml/min N18.3 Cardiomyopathy I42.0 Cardiomyopathy type: dilated HLD (hyperlipidemia) E78.5 Hypothyroidism E03.9 HTN (hypertension), benign I10 Myasthenia gravis, AChR antibody positive G70.00 Swallowing difficulty R13.10 Dysphagia type: unspecified Mixed stress and urge incontinence N39.46 Diabetes mellitus, type 2 E11.9 (1) Swallowing difficulty Dysphagia type: unspecified Qualified Code(s): R13.10 - Dysphagia, unspecified (2) Cardiomyopathy Cardiomyopathy type: dilated Qualified Code(s): I42.0 - Dilated cardiomyopathy
[2022-03-01] MEDS ORDERED: diphenhydrAMINE Capsule 25 MG CAP PO PRN (21:14)
[2022-03-01] MEDS ORDERED: Patient's HEIGHT &/or WEIGHT Needed SCH (22:15)
[2022-03-01] MEDS: LACTATED RINGER'S 1,000 ML IV SCH (22:23)
[2022-03-01] MEDS: ACETAMINOPHEN 500 MG TAB PO PRN (22:27)
[2022-03-01] MEDS ORDERED: ACETAMINOPHEN 1000 MG/100 ML IV IV ONE (22:52)
[2022-03-01] MEDS: PYRIDOSTIGMINE BROMIDE 60 MG TAB PO SCH (22:56)
[2022-03-01] MEDS: OXYBUTYNIN CHLORIDE XL 5 MG TABCR PO SCH (22:56)
[2022-03-01] MEDS: ATORVASTATIN 40 MG TAB PO SCH (22:56)
[2022-03-01] MEDS: DOCUSATE SODIUM/SENNA 50/8.6MG TAB PO SCH (22:57)
[2022-03-01] MEDS: GABAPENTIN 300 MG CAP PO SCH (22:57)
[2022-03-01] MEDS: ONDANSETRON INJ 2 MG/ML 2 ML VIAL IV PRN (23:06)
[2022-03-01] MEDS ORDERED: ACETAMINOPHEN 65 ML IV ONE (23:45)
[2022-03-01] MEDS: HEPARIN SOD 5,000 UNIT/0.5 ML VIAL SQ SCH (23:59)
[2022-03-02] MEDS: LEVOTHYROXINE SODIUM 137 MCG TABLET PO SCH (05:47)
--- NOTE | 2022-03-02 06:25 | Electrocardiogram Report ---
Test Reason : Blood Pressure : / mmHG Vent. Rate : 090 BPM Atrial Rate : 090 BPM P-R Int : 140 ms QRS Dur : 074 ms QT Int : 374 ms P-R-T Axes : 091 -23 054 degrees QTc Int : 457 ms Normal sinus rhythm Poor R wave progression, consider anterior WI vs. lead placement vs. LVH Abnormal ECG When compared with ECG of 08-FEB-2022 13:59, Sinus rhythm has replaced Electronic ventricular pacemaker Confirmed by Kofi Domínguez ([id number]) on 03/02/2022 6:24:56 AM Referred By: Confirmed By:Kofi Domínguez
[2022-03-02 07:14] LABS: Basophils # (auto) 0.02 K/uL (0-0.2); Basophils % (auto) 0.3 %; Eosinophils # (auto) 0.44 K/uL (0-0.5); Hematocrit (blood only) 40.4 % (37-47); Immature Granulocytes # (auto) 0.01 K/uL (0.00-0.02); Immature Granulocytes % (auto) 0.1 %; Lymphocytes # (auto) 2.64 K/uL (1.2-3.4); Lymphocytes % (auto) 36.3 %; Mean Corpuscular Hemoglobin 32.7 pg (25-34); Mean Corpuscular Hgb Conc 32.2 g/dL (32-36); Mean Corpuscular Volume 101.5 fL (80-100); Mean Platelet Volume 10.5 fL (7.4-10.4); Monocytes # (auto) 0.68 K/uL (0.11-0.59); Monocytes % (auto) 9.3 %; Neutrophils # (auto) 3.49 K/uL (1.4-6.5); Platelet Count 193 K/uL (130-400); RDW Coefficient of Variation 13.9 % (11.5-14.5); RDW Standard Deviation 51.9 fL (36.4-46.3); Red Blood Count 3.98 M/uL (4.2-5.4); White Blood Count 7.28 K/uL (4.8-10.8)
[2022-03-02 07:31] LABS: BUN Creatinine Ratio 13.7 (10-20); Calcium 8.7 mg/dl (8.5-10.1); Creatinine Clr Calc Pharmacy 28.3 ml/min; Est GFR (African American) 56.5 ml/min; Est GFR (Non-African American) 48.7 ml/min; Potassium 3.6 mmol/L (3.5-5.1)
[2022-03-02] MEDS ORDERED: NON-FORMULARY MEDICATION (Glucosamine-Chondroitin [Osteo Bi-Flex] 250-200 mg Tablet) PO SCH (09:00)
[2022-03-02] MEDS: lisinopril 10 MG TAB PO SCH (09:08)
[2022-03-02] MEDS: FAMOTIDINE 10 MG TABLET PO SCH (09:08)
[2022-03-02] MEDS: HEPARIN SOD 5,000 UNIT/0.5 ML VIAL SQ SCH ×2 (09:09→21:24)
[2022-03-02] MEDS: DOCUSATE SODIUM/SENNA 50/8.6MG TAB PO SCH ×2 (09:09→21:22)
[2022-03-02] MEDS: CEROVITE ADV FORMULA TAB PO SCH (09:09)
[2022-03-02] MEDS: PYRIDOSTIGMINE BROMIDE 60 MG TAB PO SCH ×3 (09:09→21:26)
[2022-03-02] MEDS: PANTOprazole 40 MG TAB PO SCH (09:09)
[2022-03-02] MEDS: TRIAMCINOLONE ACET 0.1% CR 15 GM TUBE EXT SCH ×2 (16:28→21:26)
[2022-03-02] MEDS: LACTATED RINGER'S 1,000 ML IV SCH (16:30)
--- NOTE | 2022-03-02 19:33 | Hospitalist Progress Note ---
Date of Service March 02, 2022 Assessment & Plan (1) Intractable vomiting with nausea: Plan: - Supportive care with IVF, prn Zofran. Unclear underlying cause but likely can send home with Zodran to help with this - PT/OT to evaluate patient. - mild proctitis on CT - suspect from prior fecal impaction - GI consult placed, appreciate their recommendations. (2) Papular rash: Plan: Doubtful drug induced. ?bed bugs at home use triamcinolone cream on itchy areas here. (3) Swallowing difficulty: Plan: - Reportedly has difficulty swallowing, chokes on water. Not new. - Will have speech eval. (4) GERD (gastroesophageal reflux disease): Plan: - Continue Pepcid and PPI. (5) Myasthenia gravis, AChR antibody positive: Plan: - Continue pyridostigmine 60mg TID. (6) CKD (chronic kidney disease) stage 3, GFR 30-59 ml/min: Plan: - Baseline creatinine 0.81.1; at baseline on admission. (7) Cardiomyopathy: Plan: - History of, s/p ICD with improvement in EF from 25% to 60%. - No evidence today of pulmonary edema or JVD. (8) HLD (hyperlipidemia): Plan: - Continue statin. (9) Hypothyroidism: Plan: - Continue levothyroxine. (10) HTN (hypertension), benign: Plan: - Continue lisinopril. (11) Mixed stress and urge incontinence: Plan: - Continue oxybutynin. (12) Diabetes mellitus, type 2: Plan: - No current home meds. - Did well with regular diet on last admision. Plan: - Admit to med/surg. - SCDs, Heparin for DVT ppx. - DNR/DNI. Admission and Anticipated Discharge Date Admission Date: March 01, 2022 Subjective Intermittent nasuea and vomiting going on for months. Unable to tell me how frequent. Recent fecal impaction cause of recent admission. CT A/P unremarkable other than proctitis. Unable to tell me how long current N&V has been going on but appears to be resolved but not yet back to her usual self. Awaiting GI consult. Also has noticed a diffuse papular rash. Was not present last admission but noticed in the last few days at home. No known bed bugs. Possible changed detergent but no rash on him. Review of Systems Review of Systems: All systems reviewed & are unremarkable except as noted in Subjective Physical Exam Constitutional: WD/WN, vitals as above + frail appearing ENMT: external ear and nose normal, oropharynx normal Neck: trachea midline, no thyromegaly Respiratory: normal respiratory effort, lungs clear to auscultation Cardiovascular: RRR, no murmur, no edema Gastrointestinal (Abdomen): normal bowel sounds, soft, nontender, no hepatosplenomegaly Musculoskeletal: no cyanosis or clubbing, extremities motor strength 5/5 Skin: + rash (papular rash on face, chest and all 4 extremities, pruritic) Neurologic: moves all extremities and awake; not confused Psychiatric: A+Ox3, euthymic affect Results & Data Results & Data ([facility]) Vital Signs (Past 12 Hours) Vital Signs Temp Pulse Resp BP Pulse Ox 03/02/22 16:36 36.8 C 69 18 121/74 91 PG Care Time/CCT Total # of Minutes Spent Total Time Spent with Patient: Total time spent is greater than 50% in coordination of care (as documented) at patient's floor/unit and/or counseling patient: Coding Level of Care Code 34692 Subseq Obs Care Lvl 2 Diagnoses Intractable vomiting with nausea R11.2 Swallowing difficulty R13.10 Dysphagia type: unspecified GERD (gastroesophageal reflux disease) K21.9 Myasthenia gravis, AChR antibody positive G70.00 CKD (chronic kidney disease) stage 3, GFR 30-59 ml/min N18.3 Cardiomyopathy I42.0 Cardiomyopathy type: dilated HLD (hyperlipidemia) E78.5 Hypothyroidism E03.9 HTN (hypertension), benign I10 Mixed stress and urge incontinence N39.46 Diabetes mellitus, type 2 E11.9 Papular rash R21 (1) Swallowing difficulty Dysphagia type: unspecified Qualified Code(s): R13.10 - Dysphagia, unspecified (2) Cardiomyopathy Cardiomyopathy type: dilated Qualified Code(s): I42.0 - Dilated cardiomyopathy
[2022-03-02] MEDS: OXYBUTYNIN CHLORIDE XL 5 MG TABCR PO SCH (21:23)
[2022-03-02] MEDS: ATORVASTATIN 40 MG TAB PO SCH (21:23)
[2022-03-02] MEDS: GABAPENTIN 300 MG CAP PO SCH (21:24)
[2022-03-03] MEDS: LEVOTHYROXINE SODIUM 137 MCG TABLET PO SCH (06:21)
[2022-03-03] MEDS: LACTATED RINGER'S 1,000 ML IV SCH (06:21)
[2022-03-03] MEDS: CEROVITE ADV FORMULA TAB PO SCH (08:43)
[2022-03-03] MEDS: lisinopril 10 MG TAB PO SCH (08:43)
[2022-03-03] MEDS: FAMOTIDINE 10 MG TABLET PO SCH (08:43)
[2022-03-03] MEDS: PYRIDOSTIGMINE BROMIDE 60 MG TAB PO SCH ×3 (08:43→20:02)
[2022-03-03] MEDS: HEPARIN SOD 5,000 UNIT/0.5 ML VIAL SQ SCH ×2 (08:43→20:02)
[2022-03-03] MEDS: TRIAMCINOLONE ACET 0.1% CR 15 GM TUBE EXT SCH ×3 (08:44→20:03)
[2022-03-03] MEDS: DOCUSATE SODIUM/SENNA 50/8.6MG TAB PO SCH ×2 (08:44→20:02)
[2022-03-03] MEDS: PANTOprazole 40 MG TAB PO SCH (08:44)
[2022-03-03] MEDS ORDERED: TRIAMCINOLONE ACET 0.1% CR 15 GM TUBE EXT SCH (16:00)
[2022-03-03] MEDS: GABAPENTIN 300 MG CAP PO SCH (20:01)
[2022-03-03] MEDS: OXYBUTYNIN CHLORIDE XL 5 MG TABCR PO SCH (20:02)
[2022-03-03] MEDS: ATORVASTATIN 40 MG TAB PO SCH (20:02)
[2022-03-04] MEDS: LEVOTHYROXINE SODIUM 137 MCG TABLET PO SCH (05:58)
--- NOTE | 2022-03-04 07:05 | Hospitalist Progress Note ---
Date of Service March 03, 2022 Assessment & Plan (1) Intractable vomiting with nausea: Plan: - Supportive care with IVF, prn Zofran. Unclear underlying cause but likely can send home with Zofran to help with this - PT/OT to evaluate patient. - mild proctitis on CT - suspect from prior fecal impaction, she does not appear to need antibiotics for this but will repeat cbc in am to check WBC not rising - GI consult placed, awaiting consult (2) Papular rash: Plan: Doubtful drug induced. ?bed bugs at home use triamcinolone cream on itchy areas here - increase dose to TID (3) Swallowing difficulty: Plan: - Reportedly has difficulty swallowing, chokes on water. Not new. - Speech eval complete - easy to chew diet, aspiration and reflux precautions (4) GERD (gastroesophageal reflux disease): Plan: - Continue Pepcid and PPI. (5) Myasthenia gravis, AChR antibody positive: Plan: - Continue pyridostigmine 60mg TID. (6) CKD (chronic kidney disease) stage 3, GFR 30-59 ml/min: Plan: - Baseline creatinine 0.81.1; at baseline on admission. (7) Cardiomyopathy: Plan: - History of, s/p ICD with improvement in EF from 25% to 60%. - No evidence today of pulmonary edema or JVD. (8) HLD (hyperlipidemia): Plan: - Continue statin. (9) Hypothyroidism: Plan: - Continue levothyroxine. (10) HTN (hypertension), benign: Plan: - Continue lisinopril. (11) Mixed stress and urge incontinence: Plan: - Continue oxybutynin. (12) Diabetes mellitus, type 2: Plan: - No current home meds. - Did well with regular diet on last admision. Plan: - Admit to med/surg. - SCDs, Heparin for DVT ppx. - DNR/DNI. Admission and Anticipated Discharge Date Admission Date: March 03, 2022 Subjective Nausea and vomiting mostly resolved. Had a bowel movement. Very concerned about going home as she is unsure what to do if this occurs again. Review of Systems Review of Systems: All systems reviewed & are unremarkable except as noted in Subjective Physical Exam Constitutional: WD/WN, vitals as above + frail appearing ENMT: external ear and nose normal, oropharynx normal Neck: trachea midline, no thyromegaly Respiratory: normal respiratory effort, lungs clear to auscultation Cardiovascular: RRR, no murmur, no edema Gastrointestinal (Abdomen): normal bowel sounds, soft, nontender, no hepatosplenomegaly Musculoskeletal: no cyanosis or clubbing, extremities motor strength 5/5 Skin: + rash (papular rash on face, chest and all 4 extremities, pruritic) Neurologic: moves all extremities and awake; not confused Psychiatric: A+Ox3, euthymic affect Results & Data Results & Data ([facility]) Vital Signs (Past 12 Hours) Vital Signs Temp Pulse Resp BP Pulse Ox 03/03/22 23:16 36.7 C 76 16 132/78 92 PG Care Time/CCT Total # of Minutes Spent Total Time Spent with Patient: Total time spent is greater than 50% in coordination of care (as documented) at patient's floor/unit and/or counseling patient: Coding Level of Care Code 85460 Subseq Hosp Care Lvl 2 Diagnoses Intractable vomiting with nausea R11.2 Papular rash R21 Swallowing difficulty R13.10 Dysphagia type: unspecified GERD (gastroesophageal reflux disease) K21.9 Myasthenia gravis, AChR antibody positive G70.00 CKD (chronic kidney disease) stage 3, GFR 30-59 ml/min N18.3 Cardiomyopathy I42.0 Cardiomyopathy type: dilated HLD (hyperlipidemia) E78.5 Hypothyroidism E03.9 HTN (hypertension), benign I10 Mixed stress and urge incontinence N39.46 Diabetes mellitus, type 2 E11.9 (1) Swallowing difficulty Dysphagia type: unspecified Qualified Code(s): R13.10 - Dysphagia, unspecified (2) Cardiomyopathy Cardiomyopathy type: dilated Qualified Code(s): I42.0 - Dilated cardiomyopathy
[2022-03-04 07:54] LABS: Basophils # (auto) 0.01 K/uL (0-0.2); Basophils % (auto) 0.1 %; Eosinophils # (auto) 0.35 K/uL (0-0.5); Eosinophils % (auto) 5.1 %; Hematocrit (blood only) 40.7 % (37-47); Hemoglobin 13.2 g/dL (12.0-16.0); Immature Granulocytes # (auto) 0.02 K/uL (0.00-0.02); Immature Granulocytes % (auto) 0.3 %; Lymphocytes # (auto) 2.95 K/uL (1.2-3.4); Lymphocytes % (auto) 43.1 %; Mean Corpuscular Hemoglobin 32.8 pg (25-34); Mean Corpuscular Hgb Conc 32.4 g/dL (32-36); Monocytes # (auto) 0.66 K/uL (0.11-0.59); Monocytes % (auto) 9.6 %; Neutrophils # (auto) 2.86 K/uL (1.4-6.5); Neutrophils % (auto) 41.8 %; Platelet Count 181 K/uL (130-400); Red Blood Count 4.03 M/uL (4.2-5.4); White Blood Count 6.85 K/uL (4.8-10.8)
[2022-03-04 08:03] LABS: BUN Creatinine Ratio 13.6 (10-20); Calcium 8.9 mg/dl (8.5-10.1); Creatinine Clr Calc Pharmacy 32.8 ml/min; Est GFR (African American) 67.5 ml/min; Est GFR (Non-African American) 58.3 ml/min; Potassium 3.7 mmol/L (3.5-5.1)
--- NOTE | 2022-03-04 08:28 | Hospitalist Progress Note ---
Date of Service March 04, 2022 Assessment & Plan (1) Intractable vomiting with nausea: Plan: Supportive care with IVF, prn Zofran. 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/p sphincterotomy in Jul 2016 and EGD showed a non-bleeding superficial duodenal ulcer at that time Will increase Protonix to BID, adding Carafate and will monitor Messaged GI PA-C of concerns for continued investigation Recommend heavy bowel regimen, added daily Miralax in addition to senna/docusate, titrate as needed Mild proctitis on CT, suspected from prior fecal impaction --> no need for abx at this time/WBC not further elevated GI consulted -- appreciate recs/assistance Patient more comfortable monitoring overnight but can use ODT zofran at dc --> nausea following lunch 03/04. No BM since 03/03 and added miralax. --> Will repeat KUB for eval n/discomfort as well (also check 2 view cxr given ground-glass opacities basal left lower lobe) Additional recs to follow after attending seen this afternoon PT/OT -- home health, CM following, when medially stable (2) Papular rash: Plan: Doubtful drug induced. ?bed bugs at home use triamcinolone cream on itchy areas here - increased dose to TID states gets itchy with her one medication for her myasthenia --> denies scratching though/use of antihistamines Benadryl available but hasn't used Will try Zyrtec x 1 Will add CRP/ESR to am labs (3) Swallowing difficulty: Plan: Reportedly has difficulty swallowing, chokes on water. Not new. -Does have hx myasthenia, ?need medication adjustment -Messaged Dr Baez for iris but not read message, per PCP note has f/u appo intment next month Speech eval complete - easy to chew diet, aspiration and reflux precautions (4) GERD (gastroesophageal reflux disease): Plan: - Continue Pepcid and PPI. of note, new research with decreased efficacy using dual agents consideration to discontinue pepcid, will place on hold for AM/monitor (5) Myasthenia gravis, AChR antibody positive: Plan: - Continue pyridostigmine 60mg TID. f/u end of this month/next month per PCP consideration for swallowing concerns/adjustment of medications? (6) CKD (chronic kidney disease) stage 3, GFR 30-59 ml/min: Plan: - Baseline creatinine 0.81.1; at baseline on admission. Cr 0.88 (7) Cardiomyopathy: Plan: - History of, s/p ICD with improvement in EF from 25% to 60%. - No evidence today of pulmonary edema or JVD. (8) HLD (hyperlipidemia): Plan: - Continue statin. (9) Hypothyroidism: Plan: TSH 1.506 Continue levothyroxine home dose (10) HTN (hypertension), benign: Plan: BP stable Continue lisinopril. (11) Mixed stress and urge incontinence: Plan: - Continue oxybutynin. (12) Diabetes mellitus, type 2: Plan: - No current home meds. - Did well with regular diet on last admision. (13) Macrocytosis: Plan: not new B12/folate without deficiency TSH wnl will check peripheral smear as appears longstanding (14) Constipation: Plan: working on bowel regimen as above hx cdiff colitis 2018 check if able (15) Nausea and vomiting: Plan: no vomiting reported but reported nausea following eating zofran prn consider reglan/stimulant? gastroparesis Plan: SCDs, Heparin SQ for DVT prophylaxis continued inpatient stay Admission and Anticipated Discharge Date Admission Date: March 03, 2022 Subjective patient evaluated this afternoon initially feeling better, no n/v, but after lunch patient becoming more nauseated. discussed ODT zofran for at home, but she would feel more comfortable monitoring overnight. Discussed heavy bowel regimen and to continue at home as nausea/vomiting can be resultant of constipation. Last BM yesterday. Rash to anterior chest, states appeared after last admission. Per RN, also with similar rash. Itchy, using triamcinolone. States has used the blanket to itch when needed, but that she doesn't scratch the skin directly. She states her one medication for her myasthenia does make her itchy. Has not tried zyrtec or antihistamines. Will try dose x 1 now. Benadryl available prn on nov but has not taken this. Review of Systems Review of Systems: All systems reviewed & are unremarkable except as noted in HPI & below Physical Exam Physical Exam: General WD/WN frail elderly female sitting up in bed, NAD HEENT: head normocephalic, atraumatic, slightly dry mm Resp: CTAB, no w/c/r, on room air CV: RRR, no m/r/g, no edema/calf tenderness GI:+BS, soft, slight tenderness to palpation epigastric region, no guarding/rigidity : no corona MSK/Neuro: moves all extremities, CN intact grossly, strength equal Psych: AOx3, pleasant and cooperative, not confused Skin: rash(pruritic) anterior chest wall with scabbing Results & Data Results & Data ([facility]) Vital Signs (Past 12 Hours) Vital Signs Temp Pulse Resp BP Pulse Ox 03/04/22 07:35 36.4 C L 72 18 137/76 94 03/03/22 23:16 36.7 C 76 16 132/78 92 Laboratory Results 03/04/22 03/04/22 Range/Units 07:03 06:19 WBC 6.85 (4.8-10.8) K/uL RBC 4.03 L (4.2-5.4) M/uL Hgb 13.2 (12.0-16.0) g/dL Hct 40.7 (37-47) % MCV 101.0 H (80-100) fL MCH 32.8 (25-34) pg MCHC 32.4 (32-36) g/dL Plt Count 181 (130-400) K/uL Immature Gran % (Auto) 0.3 % Neut % (Auto) 41.8 % Lymph % (Auto) 43.1 % [place] % (Auto) 9.6 % Eos % (Auto) 5.1 % Baso % (Auto) 0.1 % Neut # (Auto) 2.86 (1.4-6.5) K/uL Lymph # (Auto) 2.95 (1.2-3.4) K/uL [place] # (Auto) 0.66 H (0.11-0.59) K/uL Eos # (Auto) 0.35 (0-0.5) K/uL Baso # (Auto) 0.01 (0-0.2) K/uL Immature Gran # (Auto) 0.02 (0.00-0.02) K/uL Sodium 141 (136-145) mmol/L Potassium 3.7 (3.5-5.1) mmol/L Chloride 106 (98-107) mmol/L Carbon Dioxide 31 (21-32) mmol/L Anion Gap 4 (3-11) BUN 12 (6-23) mg/dl Creatinine 0.88 (0.6-1.2) mg/dl Est Cr Clr Drug Dosing 32.8 ml/min Est GFR ( Amer) 67.5 ml/min Est GFR (Non-Af Amer) 58.3 ml/min BUN/Creatinine Ratio 13.6 (10-20) Glucose 83 (70-99(Fasting)) mg/dl Calcium 8.9 (8.5-10.1) mg/dl PG Care Time/CCT Total # of Minutes Spent Total Time Spent with Patient: Total time spent is greater than 50% in coordination of care (as documented) at patient's floor/unit and/or counseling patient: Coding Level of Care Code 38566 Subseq Hosp Care Lvl 3 Diagnoses Intractable vomiting with nausea R11.2 Papular rash R21 Swallowing difficulty R13.10 Dysphagia type: unspecified GERD (gastroesophageal reflux disease) K21.9 Myasthenia gravis, AChR antibody positive G70.00 CKD (chronic kidney disease) stage 3, GFR 30-59 ml/min N18.3 Cardiomyopathy I42.0 Cardiomyopathy type: dilated HLD (hyperlipidemia) E78.5 Hypothyroidism E03.9 HTN (hypertension), benign I10 Mixed stress and urge incontinence N39.46 Diabetes mellitus, type 2 E11.9 Macrocytosis D75.89 Constipation K59.00 Nausea and vomiting R11.2 (1) Swallowing difficulty Dysphagia type: unspecified Qualified Code(s): R13.10 - Dysphagia, unspecified (2) Cardiomyopathy Cardiomyopathy type: dilated Qualified Code(s): I42.0 - Dilated cardiomyopathy
[2022-03-04] MEDS: PANTOprazole 40 MG TAB PO SCH ×2 (08:34→21:42)
[2022-03-04] MEDS: DOCUSATE SODIUM/SENNA 50/8.6MG TAB PO SCH ×2 (08:34→21:42)
[2022-03-04] MEDS: FAMOTIDINE 10 MG TABLET PO SCH (08:35)
[2022-03-04] MEDS: PYRIDOSTIGMINE BROMIDE 60 MG TAB PO SCH ×3 (08:35→16:24)
[2022-03-04] MEDS: CEROVITE ADV FORMULA TAB PO SCH (08:35)
[2022-03-04] MEDS: lisinopril 10 MG TAB PO SCH (08:35)
[2022-03-04] MEDS: HEPARIN SOD 5,000 UNIT/0.5 ML VIAL SQ SCH ×2 (08:35→21:42)
[2022-03-04] MEDS: TRIAMCINOLONE ACET 0.1% CR 15 GM TUBE EXT SCH ×3 (08:37→21:43)
--- NOTE | 2022-03-04 09:57 | Gastrointestinal Consultation ---
Date of Consultation March 04, 2022 Assessment & Plan (1) Nausea and vomiting: (2) Constipation: (3) Abnormal CT scan, colon: -Last charted bowel movement is on 03/03 and patient is in the bathroom during my attempts to visit -Would advise a good bowel regimen with Miralax 17 gm BID, Colace 100 mg BID, & Metamucil 1 TBSP daily. -Ok to use prn enema -Proctitis likely 2/2 constipation however if concerns persist once bowel regimen is optimized, could consider outpatient colonoscopy for further evaluation -Ok to use antiemetics for n/v, however these symptoms may improve with more complete evacuation of her bowels -Diet as tolerated Supervising Physician Co-Signing Physician Notes Agree with MARÍA Yuan as above ROS and PE were performed by me with at the bedside Recommend bowel regimen as outlined above: Miralax 17 gm BID, Colace 100 mg BID, & Metamucil 1 TBSP daily. Recommend Zofran 4 mg every 6 hours as needed for nausea/vomiting Tolerating Regular diet at present Consider outpatient Colonoscopy if no improvement on bowel regimen as above History of Present Illness Reason for Consultation: Nausea, vomiting, constipation Attending Physician: Frank Park MD History of Present Illness Patient is an 87 yo female with PMH of GERD, DM2, CKD, osteoarthritis, diverticulitis with partial colectomy, ICD placement, hypothyroidism, HLD, Osteoporosis, chronic pancreatitis, HLD, IBS, lumbar canal stenosis, & Myasthenia Gravis who is hospitalized with nausea & vomiting. Patient endorses constipation. CT shows proctitis as well as extensive diverticulosis. She has ambulatory dysfunction. She takes Senna at home for constipation. No alarming GI findings noted on CBC & metabolic panel. N/V has been managed with Zofran. Patient has had an EGD, ERCP, & EUS in the past for unrelated GI issues. Patient was in the bathroom during attempts to visit this AM. Physical [facility]. Allergies Allergy/AdvReac Type Severity Reaction Status Date / Time celecoxib Allergy Severe SX OF Verified 03/01/22 12:10 STROKE, FACIAL NUMBNESS, UNABLE TO SPEAK fesoterodine [From Toviaz] Allergy Unknown Unknown Verified 03/01/22 12:10 solifenacin [From Vesicare] Allergy Unknown Unknown Verified 03/01/22 12:10 morphine AdvReac Intermediate Confusion Verified 03/01/22 12:10 ciprofloxacin AdvReac Mild UPSET Verified 03/01/22 12:10 STOMACH metronidazole AdvReac Mild N/V Verified 03/01/22 12:10 Home Medications Medication Instructions Recorded Confirmed Type cholecalciferol (vitamin D3) 50 2,000 unit PO QAM 08/05/18 03/01/22 History mcg (2,000 unit) tablet (Vitamin D3) ascorbic acid (vitamin C) 500 mg 500 mg PO QAM tab 02/26/19 03/01/22 History tablet multivit with 1 tab PO QAM 08/21/20 03/01/22 History lwbovsyd-nryt-XE-lutein 8 mg iron-400 mcg-300 mcg tablet (Centrum Silver Women) acetaminophen 500 mg tablet 1,000 mg PO TID PRN 01/15/21 03/01/22 History vitamin A 2,400 mcg capsule 2,400 mcg PO QAM cap 01/23/21 03/01/22 History vitamin E 100 unit capsule 100 unit PO QAM cap 01/23/21 03/01/22 History cyanocobalamin (vitamin B-12) 500 mcg PO QAM tab 03/26/21 03/01/22 History 1,000 mcg tablet (Vitamin B-12) atorvastatin 40 mg tablet 40 mg PO HS #90 tab 04/30/21 03/01/22 Rx pantoprazole 40 mg tablet,delayed 40 mg PO QAM #30 tab 05/07/21 03/01/22 Rx release glucosamine-chondroitin 250 mg-200 1 tab PO QAM 05/13/21 03/01/22 History mg tablet (Osteo Bi-Flex) oxybutynin chloride 5 mg 5 mg PO HS #30 tab 10/01/21 03/01/22 Rx tablet,extended release 24 hr gabapentin 300 mg capsule 600 mg PO HS #60 cap 11/19/21 03/01/22 Rx diphenhydramine 25 2 tab PO HS 12/15/21 03/01/22 History mg-acetaminophen 500 mg tablet (Tylenol PM Extra Strength) pyridostigmine bromide 60 mg 60 mg PO TID 90 Days #270 tab 01/31/22 03/01/22 Rx tablet (Mestinon) alendronate 70 mg tablet 70 mg PO WK 02/07/22 03/01/22 History sennosides 8.6 mg-docusate sodium 1 tab PO BID #60 tab 02/27/22 03/01/22 Rx 50 mg tablet (Senokot-S) Saccharomyces boulardii 250 mg 250 mg PO BID #20 cap 03/01/22 Rx capsule (Florastor) cefdinir 300 mg capsule 300 mg PO BID 7 Days #14 cap 03/01/22 Rx famotidine 10 mg tablet 10 mg PO QAM 03/01/22 03/01/22 History famotidine 20 mg tablet 20 mg PO BID #20 tab 03/01/22 Rx levothyroxine 137 mcg tablet 137 mcg PO QAM 03/01/22 03/01/22 History lisinopril 10 mg tablet 10 mg PO QAM 03/01/22 03/01/22 History ondansetron 4 mg disintegrating 4 mg PO Q6H PRN #14 tab 03/01/22 Rx tablet Patient History Medical History Acute back pain Acute UTI Anemia Cardiac defibrillator in place Cardiomyopathy Carotid artery stenosis Chronic pancreatitis CKD (chronic kidney disease) stage 3, GFR 30-59 ml/min Colitis Degenerative joint disease (DJD) of hip Diabetes mellitus, type 2 Diabetic nephropathy Diabetic peripheral neuropathy Diverticulitis Diverticulosis of colon Duodenal ulcer Fall Fall GERD (gastroesophageal reflux disease) GERD without esophagitis HLD (hyperlipidemia) HTN (hypertension), benign Hypercholesterolemia Hypothyroid IBS (irritable bowel syndrome) ICD (implantable cardioverter-defibrillator) battery depletion Insomnia Lumbar canal stenosis Lumbar spondylosis Nocturia Nonischemic cardiomyopathy Osteoarthritis Osteoporosis Presence of cardiac pacemaker Pulmonary nodule Rib fracture 09/17/18 R/T FALL. D/C'D TO [facility]. Scaphoid fracture of wrist Urge incontinence of urine Vitamin D deficiency, unspecified Surgical History History of cardiac cath PER PT, 5-10 YEARS AGO AT [facility] - REASON? - NO STENTS/ANGIOPLASTY History of cholecystectomy History of colonoscopy History of ERCP w/ sphincterotomy & CBD stent History of esophagogastroduodenoscopy (EGD) History of vertebroplasty T12 S/P appendectomy S/P hysterectomy S/P ICD (internal cardiac defibrillator) procedure Biventricular AICD placed in 2007, Generator Change-out 02/15/2020 -- now has a [employer] Claria MRI ROPE MAKER-D Bi-V AICD. S/P kyphoplasty S/P partial colectomy S/P rotator cuff surgery Family History Son Diabetes Sister Breast cancer Denies family history of Ovarian cancer Prostate cancer Hearing loss Coronary heart disease No family history of adverse response to anesthesia No family history of bleeding disorder Heart disease Allergies Myocardial infarction Colorectal cancer Cancer Hypertension Stroke Asthma Social History Smoking Status: Never smoker Second Hand Exposure: No; Hx Alcohol Use: No Hx Substance Use: No Preferred Language: Scottish Communication Ability: Effective Visual Impairment: No Limitations Hearing Ability: Normal Director Gift Required: No Beliefs That Will Affect Care: None marital status: Current Living Situation: Spouse current occupational status: retired current occupation: retired from career with [employer] How many Children do You have: 6 Other Information That Helps Us Care for You: No Feels Safe at Home: Yes Safety Concerns: Feels Safe At This Time Childhood Exposure to Second-Hand Smoke: No caffeine: Yes Dental Care, Regularly: No Physical Activity Frequency: Does not Exercise Seatbelt Use: always Sunscreen Use: No Assistive Devices: Walker Review of Systems 2 Constitutional: as per Subjective / HPI Eyes: as per Subjective / HPI Ear, Nose, Mouth, Throat: as per Subjective / HPI Respiratory: as per Subjective / HPI Cardiovascular: as per Subjective / HPI Gastrointestinal: as per Subjective / HPI Musculoskeletal: as per Subjective / HPI Integumentary: as per Subjective / HPI Neurologic: as per Subjective / HPI Psychiatric: as per Subjective / HPI Endocrine: as per Subjective / HPI Hematologic / Lymphatic: as per Subjective / HPI Allergy / Immunological: as per Subjective / HPI Physical Exam Constitutional: WD/WN, vitals as above Respiratory: normal respiratory effort, lungs clear to auscultation Cardiovascular: RRR, no murmur, no edema Gastrointestinal (Abdomen): normal bowel sounds, soft, nontender, no hepatosplenomegaly Psychiatric: A+Ox3, euthymic affect Results & Data ([facility]) Vital Signs (Past 12 Hours) Vital Signs Temp Pulse Resp BP Pulse Ox 03/04/22 07:35 36.4 C L 72 18 137/76 94 03/03/22 23:16 36.7 C 76 16 132/78 92 PG Care Time/CCT Total # of Minutes Spent Total Time Spent with Patient: Total time spent is greater than 50% in coordination of care (as documented) at patient's floor/unit and/or counseling patient: Coding Level of Care Code 83743 Initial Inpt Care Lvl 3 Diagnoses Nausea and vomiting R11.[address] scan, colon R93.3
[2022-03-04] MEDS ORDERED: CETIRIZINE HCL 10 MG TABLET PO ONE (13:10)
[2022-03-04] MEDS ORDERED: POLYETHYLENE (MIRALAX) 17 GM PACK PO SCH (13:15)
[2022-03-04] MEDS: ONDANSETRON INJ 2 MG/ML 2 ML VIAL IV PRN (13:40)
[2022-03-04 14:30] LABS: Lyme Ab IgM w/WB Rflx Negative (Negative)
[2022-03-04 14:32] LABS: Lyme Ab IgG w/WB Rflx Positive (Negative)
[2022-03-04 14:46] LABS: Alanine Aminotransferase 9 U/L (7-52); Albumin Level 3.3 gm/dl (3.4-5.0); Alkaline Phosphatase 58 U/L (34-104); Aspartate Aminotransferase 20 U/L (13-39); Bilirubin Direct 0.1 mg/dl (0-0.2); Bilirubin,Total 0.6 mg/dl (0.2-1.0); C Reactive Protein < 0.50 mg/dl (0-0.5); Lipase 41 U/L (11-82); Total Protein 5.8 gm/dl (6.0-8.3)
--- NOTE | 2022-03-04 15:28 | XRay Report ---
KUB CLINICAL HISTORY: f/u constipation COMPARISON STUDY: CT of the abdomen and pelvis March 01, 2022. FINDINGS: Left hip arthroplasty, pacer/AICD lead, T12 kyphoplasty and degenerative changes within lum bar spine are incidentally noted. There is no evidence for a bowel obstruction. Mild to moderate amou nt of stool within the sigmoid colon and rectum is present. IMPRESSION: 1. No evidence for a bowel obstruction. 2. [id number]-wm-[id number] amount stool within the sigmoid colon and rectum. ACT 112: Negative or not required by law. Electronically signed by: Kendall Kirby M.D. 03/04/2022 3:27 PM
--- NOTE | 2022-03-04 15:32 | XRay Report ---
XR chest 2V PA/lateral CLINICAL HISTORY: f/u n/v, opacity TECHNIQUE: 2 views of the chest were obtained. Comparison: Comparison is made to chest radiograph 03/01/2022 FINDINGS: Dual lead pacemaker is seen. Calcified aortic knob is seen. The lungs are clear. Trace blunting of th e bilateral costophrenic angles are seen. There is significant anterior wedge deformity in the thorac ic spine. IMPRESSION: Possible trace bilateral pleural effusions versus scarring. No airspace opacities are seen. ACT 112: Negative or not required by law. Electronically signed by: Roni Herring M.D. 03/04/2022 3:31 PM
[2022-03-04] MEDS ORDERED: bisacodyL 10 MG SUPP PR STA (15:56)
[2022-03-04] MEDS: SUCRALFATE 1 GM/10 ML UDC PO SCH ×2 (16:34→21:42)
[2022-03-04 18:33] LABS: Hematocrit (blood only) 41.2 % (37-47); Hemoglobin 13.4 g/dL (12.0-16.0); Mean Corpuscular Hemoglobin 33.4 pg (25-34); Mean Corpuscular Hgb Conc 32.5 g/dL (32-36); Mean Corpuscular Volume 102.7 fL (80-100); Mean Platelet Volume 10.7 fL (7.4-10.4); Platelet Count 190 K/uL (130-400); RDW Coefficient of Variation 13.6 % (11.5-14.5); RDW Standard Deviation 51.9 fL (36.4-46.3); Red Blood Count 4.01 M/uL (4.2-5.4); White Blood Count 6.45 K/uL (4.8-10.8)
[2022-03-04] MEDS ORDERED: PYRIDOSTIGMINE BROMIDE 60 MG TAB PO SCH (21:00)
[2022-03-04] MEDS: GABAPENTIN 300 MG CAP PO SCH (21:41)
[2022-03-04] MEDS: ATORVASTATIN 40 MG TAB PO SCH (21:41)
[2022-03-04] MEDS: OXYBUTYNIN CHLORIDE XL 5 MG TABCR PO SCH (21:41)
[2022-03-05] MEDS: LEVOTHYROXINE SODIUM 137 MCG TABLET PO SCH (07:00)
[2022-03-05] MEDS: PYRIDOSTIGMINE BROMIDE 60 MG TAB PO SCH ×4 (07:01→20:29)
--- NOTE | 2022-03-05 08:13 | Hospitalist Progress Note ---
Date of Service March 05, 2022 Assessment & Plan (1) Intractable vomiting with nausea: Plan: Supportive care with IVF, prn Zofran. 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/p sphincterotomy in Jul 2016 and EGD showed a non-bleeding superficial duodenal ulcer at that time Will increase Protonix to BID, adding Carafate and will monitor Messaged GI PA-C of concerns for continued investigation Recommend heavy bowel regimen, added daily Miralax in addition to senna/docusate, titrate as needed Mild proctitis on CT, suspected from prior fecal impaction --> no need for abx at this time/WBC not further elevated cdiff testing negative as performed given prior history KUB continued constipation, given enema 03/04 with 3BM (nauseated after having lunch) Increased PPI to BID/carafate added 03/04 and was going to monitor overnight Discussed daily BM to prevent constipation GI consulted -- appreciate recs/assistance bowel regimen miralax bid, Colace bid, Metamucil PT/OT -- home health, CM following, when medially stable 03/05 AFTERNOON INCREASE IN ABDOMINAL DISCOMFORT UPPER ABDOMEN/LLQ, no BM today -Given IV antiemetic, repeat KUB ordered -Did not look toxic in appearance, BS slightly distended but +BS throughout, not tachycardic, afebrile, not tachypneic. Increased lacrimation. monitor KUB/continued inpatient stay ate entire pancake/sausage for breakfast/no issues, tolerated lunch then after had issues ?only med change was decreased pyridostigmine to 30mg TID --may need to consider 4-5x/daily dosing per prior neuro notes (2) Papular rash: Plan: Doubtful drug induced. ?bed bugs at home use triamcinolone cream on itchy areas here - increased dose to TID states gets itchy with her one medication for her myasthenia --> denies scratching though/use of antihistamines zyrtec x 1 03/04 effective, repeat dose this morning CRP/ESR wnl Rash improving with decreased dose pyridostigmine (3) Swallowing difficulty: Plan: Reportedly has difficulty swallowing, chokes on water. Not new. -Does have hx myasthenia, ?need medication adjustment -Messaged Dr Baez for iameeide but not read message, per PCP note has f/u appointment next month Speech eval complete - easy to chew diet, aspiration and reflux precautions NO INCREASED ISSUES WITH SWALLOWING THIS MORNING OR FOR LUNCH ON REDUCED PYRIDOSTIGMINE REPORTED, however may need to consider increased frequency of dosing if this is medication related (4) GERD (gastroesophageal reflux disease): Plan: - Continue Pepcid and PPI. 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 (did change dosing for medications to be given prior to meals instead of TID) (6) CKD (chronic kidney disease) stage 3, GFR 30-59 ml/min: Plan: - Baseline creatinine 0.81.1; at baseline on admission. Cr at baseline (7) Cardiomyopathy: Plan: - History of, s/p ICD with improvement in EF from 25% to 60%. - No evidence today of pulmonary edema or JVD. (8) HLD (hyperlipidemia): Plan: - Continue statin. (9) Hypothyroidism: Plan: TSH 1.506 Continue levothyroxine home dose (10) HTN (hypertension), benign: Plan: BP stable Continue lisinopril -- will place on hold in AM given reports of not eating/drinking enough at home and monitor BPs (11) Mixed stress and urge incontinence: Plan: - Continue oxybutynin. (12) Diabetes mellitus, type 2: Plan: - No current home meds. - Did well with regular diet on last admision. (13) Macrocytosis: Plan: not new B12/folate without deficiency TSH wnl will check peripheral smear as appears longstanding -- no evidence for MDS can f/u outpatient, ?medication related (14) Constipation: Plan: working on bowel regimen as above hx cdiff colitis 2017 CDIFF NEGATIVE 03/04 (15) Nausea and vomiting: Plan: no vomiting reported but reported nausea following eating (?ulcer, increased PPI to BID, added carafate) zofran prn consider reglan/stimulant? gastroparesis Plan: SCDs, Heparin SQ for DVT prophylaxis continued inpatient stay Admission and Anticipated Discharge Date Admission Date: March 03, 2022 Subjective patient evaluated this morning ate pancakes and sausage no increased abdominal pain/nausea BM last evening after the enema. Discussed continuing bowel regimen at home to ensure at least one BM daily, and will add Metamucil to help with bulking up the stools but encouraged to drink with sufficient water. tolerating 30mg dose of pyridostigmine without increased visual/eye concerns, swallowing, or other symptoms related to decreased dose. Chest rash improved, some itchiness to shoulders. Continued topical triamcinolone cream and could have been from her increased pyridostigmine as caused issues in the past. If tolerating lunch without continued issue with plan for discharge. Following lunch, patient developed nausea around ~230pm. Evaluated and felt like "ball was stuck in throat". Stated throat was dry but no increased difficulty with swallowing. Surfside on lap with clear sputum. States having slight improvement with IV antiemetic but still nauseated. Had associated upper GI discomfort as well as suprapubic/RLQ (non-tender lower abdomen on exam but did have some epigastric discomfort). Physical Exam Physical Exam: General WD/WN frail elderly female sitting up in bed, NAD HEENT: head normocephalic, atraumatic, slightly dry mm Resp: CTAB, no w/c/r, on room air CV: RRR, no m/r/g, no edema/calf tenderness GI:+BS, soft, nontender : no corona MSK/Neuro: moves all extremities, CN intact grossly, strength equal Psych: AOx3, pleasant and cooperative, not confused Skin: rash(pruritic) anterior chest wall with scabbing IMPROVED Results & Data Results & Data ([place]) Vital Signs (Past 12 Hours) Vital Signs Temp Pulse Pulse Resp BP Pulse Ox 03/05/22 07:19 36.8 C 76 18 127/74 91 03/04/22 21:24 36.7 C 70 16 139/79 93 Diagnostic Findings Chest X-Ray 03/04/22 13:21 XR chest 2V PA/lateral CLINICAL HISTORY: f/u n/v, opacity TECHNIQUE: 2 views of the chest were obtained. Comparison: Comparison is made to chest radiograph 03/01/2022 FINDINGS: Dual lead pacemaker is seen. Calcified aortic knob is seen. The lungs are clear. Trace blunting of the bilateral costophrenic angles are seen. There is significant anterior wedge deformity in the thoracic spine. IMPRESSION: Possible trace bilateral pleural effusions versus scarring. No airspace opacities are seen. ACT 112: Negative or not required by law. Electronically signed by: Roni Herring M.D. 03/04/2022 3:31 PM KUB X-Ray 03/04/22 13:21 KUB CLINICAL HISTORY: f/u constipation COMPARISON STUDY: CT of the abdomen and pelvis March 01, 2022. FINDINGS: Left hip arthroplasty, pacer/AICD lead, T12 kyphoplasty and degenerative changes within lumbar spine are incidentally noted. There is no evidence for a bowel obstruction. Mild to moderate amount of stool within the sigmoid colon and rectum is present. IMPRESSION: 1. No evidence for a bowel obstruction. 2. [id number] amount stool within the sigmoid colon and rectum. ACT 112: Negative or not required by law. Electronically signed by: Kendall Kirby M.D. 03/04/2022 3:27 PM PG Care Time/CCT Total # of Minutes Spent Total Time Spent with Patient: Total time spent is greater than 50% in coordination of care (as documented) at patient's floor/unit and/or counseling patient: Coding Level of Care Code 01507 Subseq Hosp Care Lvl 2 Diagnoses Intractable vomiting with nausea R11.2 Papular rash R21 Swallowing difficulty R13.10 Dysphagia type: unspecified GERD (gastroesophageal reflux disease) K21.9 Myasthenia gravis, AChR antibody positive G70.00 CKD (chronic kidney disease) stage 3, GFR 30-59 ml/min N18.3 Cardiomyopathy I42.0 Cardiomyopathy type: dilated HLD (hyperlipidemia) E78.5 Hypothyroidism E03.9 HTN (hypertension), benign I10 Mixed stress and urge incontinence N39.46 Diabetes mellitus, type 2 E11.9 Macrocytosis D75.89 Constipation K59.00 Nausea and vomiting R11.2 (1) Swallowing difficulty Dysphagia type: unspecified Qualified Code(s): R13.10 - Dysphagia, unspecified (2) Cardiomyopathy Cardiomyopathy type: dilated Qualified Code(s): I42.0 - Dilated cardiomyopathy
[2022-03-05 08:41] LABS: Albumin Globulin Ratio 1.3 (0.9-2); BUN Creatinine Ratio 12.1 (10-20); Bilirubin,Total 0.7 mg/dl (0.2-1.0); Calcium 8.5 mg/dl (8.5-10.1); Creatinine Clr Calc Pharmacy 31.8 ml/min; Est GFR (African American) 64.8 ml/min; Est GFR (Non-African American) 55.9 ml/min; Globulin 2.3 gm/dl (2.5-4.0); Magnesium 1.8 mg/dl (1.7-2.4); Potassium 3.6 mmol/L (3.5-5.1); Total Protein 5.3 gm/dl (6.0-8.3)
[2022-03-05] MEDS: SUCRALFATE 1 GM/10 ML UDC PO SCH ×4 (09:16→20:28)
[2022-03-05] MEDS: PANTOprazole 40 MG TAB PO SCH ×2 (09:17→20:30)
[2022-03-05] MEDS: CEROVITE ADV FORMULA TAB PO SCH (09:17)
[2022-03-05] MEDS: lisinopril 10 MG TAB PO SCH (09:17)
[2022-03-05] MEDS: HEPARIN SOD 5,000 UNIT/0.5 ML VIAL SQ SCH ×2 (09:17→20:29)
[2022-03-05] MEDS: POLYETHYLENE (MIRALAX) 17 GM PACK PO SCH ×2 (09:18→20:32)
[2022-03-05] MEDS: TRIAMCINOLONE ACET 0.1% CR 15 GM TUBE EXT SCH ×3 (09:19→20:31)
[2022-03-05] MEDS ORDERED: CETIRIZINE HCL 10 MG TABLET PO ONE (09:33)
[2022-03-05] MEDS: DOCUSATE SODIUM 100 MG CAP PO SCH ×2 (09:56→20:31)
[2022-03-05] MEDS: ONDANSETRON INJ 2 MG/ML 2 ML VIAL IV PRN (14:32)
--- NOTE | 2022-03-05 16:00 | XRay Report ---
XR KUB/Abdomen 1 view CLINICAL HISTORY: n/v TECHNIQUE: 1 view of the abdomen was obtained. Comparison: Comparison is made to abdomen radiographs 03/04/2022 FINDINGS: Lung bases are unremarkable. Degenerative changes are seen in the visualized skeleton. Left hip prost hesis is seen. The bowel gas pattern is nonobstructive. Small stool burden is seen. IMPRESSION: Nonobstructive bowel gas pattern. ACT 112: Negative or not required by law. Electronically signed by: Roni Herring M.D. 03/05/2022 3:58 PM
[2022-03-05] MEDS ORDERED: PYRIDOSTIGMINE BROMIDE 60 MG TAB PO STA ×2 (16:53→18:20)
[2022-03-05 17:59] LABS: Appearance Urine Cloudy (Clear); Bacteria Urine Automated 1+ (Negative); Bilirubin Urine Negative (Negative); Blood Urine Negative (Negative); Color Urine Dark Yellow; Epithelial Cell Urine Auto >30 /lpf (0-5); Glucose Urine UA Negative (Negative); Ketones Urine Trace (Negative); Leukocyte Esterase Urine 1+ (Negative); Nitrite Urine Negative (Negative); Protein Urine 1+ (Negative); RBC Urine Automated 0-4 /hpf (0-4); Specific Gravity Urine 1.022 (1.000-1.030); Urobilinogen Urine Negative (Negative)
[2022-03-05 18:12] LABS: Calcium Oxalate Crystals Urine Present (None Prsent)
[2022-03-05] MEDS: OXYBUTYNIN CHLORIDE XL 5 MG TABCR PO SCH (20:30)
[2022-03-05] MEDS: GABAPENTIN 300 MG CAP PO SCH (20:30)
[2022-03-05] MEDS: ATORVASTATIN 40 MG TAB PO SCH (20:30)
[2022-03-06] MEDS: LEVOTHYROXINE SODIUM 137 MCG TABLET PO SCH (05:35)
[2022-03-06] MEDS: PYRIDOSTIGMINE BROMIDE 60 MG TAB PO SCH ×3 (05:40→17:12)
[2022-03-06 06:23] LABS: Hematocrit (blood only) 40.1 % (37-47); Hemoglobin 12.9 g/dL (12.0-16.0); Mean Corpuscular Hgb Conc 32.2 g/dL (32-36); Mean Corpuscular Volume 102.6 fL (80-100); Mean Platelet Volume 10.9 fL (7.4-10.4); Platelet Count 164 K/uL (130-400); RDW Standard Deviation 52.5 fL (36.4-46.3); Red Blood Count 3.91 M/uL (4.2-5.4); White Blood Count 6.87 K/uL (4.8-10.8)
[2022-03-06 06:45] LABS: Albumin Level 3.2 gm/dl (3.4-5.0); BUN Creatinine Ratio 11.2 (10-20); Bilirubin Direct 0.1 mg/dl (0-0.2); Bilirubin,Total 0.6 mg/dl (0.2-1.0); Calcium 8.5 mg/dl (8.5-10.1); Creatinine Clr Calc Pharmacy 32.5 ml/min; Est GFR (African American) 66.6 ml/min; Est GFR (Non-African American) 57.5 ml/min; Magnesium 1.7 mg/dl (1.7-2.4); Potassium 3.8 mmol/L (3.5-5.1); Total Protein 5.6 gm/dl (6.0-8.3)
[2022-03-06] MEDS: POLYETHYLENE (MIRALAX) 17 GM PACK PO SCH (08:13)
[2022-03-06] MEDS: DOCUSATE SODIUM 100 MG CAP PO SCH (08:13)
--- NOTE | 2022-03-06 08:15 | Hospitalist Progress Note ---
Date of Service March 06, 2022 Assessment & Plan (1) Intractable vomiting with nausea: Plan: Supportive care with IVF, prn Zofran. Unclear underlying cause but likely can send home with Zofran to help with this Lipase 22 (of note, prior values seem upper normal range, recent checks all low, ?creon) In 2018, pancreatitis with R sided abd/back pain related to c.diff colitis vs duodenal ulcers--Stricture in CBD s/p sphincterotomy in Jul 2016 and EGD showed a non-bleeding superficial duodenal ulcer at that time Messaged GI PA-C of concerns for continued investigation Mild proctitis on CT, suspected from prior fecal impaction --> no need for abx at this time/WBC not further elevated cdiff testing negative as performed given prior history KUB continued constipation, given enema 03/04 with 3BM (nauseated after having lunch) Increased PPI to BID/carafate added 03/04 and was going to monitor overnight Discussed daily BM to prevent constipation GI consulted -- appreciate recs/assistance bowel regimen miralax bid, Colace bid, Metamucil HOLDING OFF FURTHER MIRALAX/COLACE given diarrhea x 10 this morning Adding Metamucil 03/06 Neuro consulted given myasthenia and possible relation to medication as was on 60mg TID on admission Decreased back to 30mg TID, tolerating, however had complained last night off issues with closing her jaw with reduced dose but appears improved today --> diarrhea x 10 AM 03/06 -> stool pcr collected, NEGATIVE Lomotil x 1 given, scheduled daily. Additional prn dose ok w/ GI Added Metamucil daily to help bulk up stools Added Antwan after discussion with GI (issues w/ abd discomfort/nausea 03/05 after pancakes/sausage) Giving NSS 500cc/hr for dehydration on exam likely due to diarrheal losses ?if any underlying gastroparesis. Gastric emptying study possible for tomorrow, would need NPO after midnight. Per GI, low yield, but given continued reported issues, feel ok to try if patient able to complete pending, ?Reglan as needed for daily BM PT/OT -- home health, CM following, when medially stable (2) Papular rash: Plan: ? medication induced given increase pyridostigmine to 60mg TID on admission however was getting at home Triamcinolone cream CRP/ESR wnl Zyrtec for itching, effective Improving with decreased dose of her MG meds, however mindful of +lyme equivocal,but was given doxy PO last year for empiric lyme tx but testing negative at that time. ?leukocytoclastic type rxn? monitor WB (3) Swallowing difficulty: Plan: Reportedly has difficulty swallowing, chokes on water. Not new. Speech saw -- easy to chew diet, aspiration, reflux precautions Meds adjusted for myasthenia and reported no issues with swallowing -- monitor (4) GERD (gastroesophageal reflux disease): Plan: Continue Pepcid and PPI. tx for n/v/d as above (5) Myasthenia gravis, AChR antibody positive: Plan: On 60mg tid on admission however was only taking 30mg TID at home Neuro consulted, changed back to 30mg TID Seems to be stable at this time and will monitor on reduced dose (6) CKD (chronic kidney disease) stage 3, GFR 30-59 ml/min: Plan: Baseline creatinine 0.81.1; at baseline on admission. Cr at baseline (7) Cardiomyopathy: Plan: History of, s/p ICD with improvement in EF from 25% to 60%. - No evidence today of pulmonary edema or JVD. (8) HLD (hyperlipidemia): Plan: Continue statin. (9) Hypothyroidism: Plan: TSH 1.506 Continue levothyroxine home dose (10) HTN (hypertension), benign: Plan: BP stable Continue lisinopril -- will place on hold in AM given reports of not eating/drinking enough at home and monitor BPs, give 500cc NSS for today for dehydration (11) Mixed stress and urge incontinence: Plan: - Continue oxybutynin. (12) Diabetes mellitus, type 2: Plan: No current home meds. - Did well with regular diet on last admission (13) Macrocytosis: Plan: not new B12/folate without deficiency TSH wnl will check peripheral smear as appears longstanding -- no evidence for MDS can f/u outpatient, ?medication related (14) Constipation: Plan: working on bowel regimen as above hx c.diff colitis 2018 C. DIFF NEGATIVE 03/04, repeat negative 03/06 (15) Nausea and vomiting: Plan: no vomiting reported but reported nausea following eating (?ulcer, increased PPI to BID, added Carafate but ?if causing issues and will dc carafate and back PPi to once daily) zofran prn consider reglan/stimulant? gastroparesis gastric emptying study in am Plan: SCDs, Heparin SQ for DVT prophylaxis continued inpatient stay Admission and Anticipated Discharge Date Admission Date: March 03, 2022 Subjective patient evaluated around noon. had episodes of diarrhea this morning x10. stool testing collected holding laxatives and given Lomotil. states feeling a little better after a rest. saw Dr Light this morning and adjustment back to her 30mg TID medication for her MG. Will monitor -- denies any issues with closing jaw/swallowing. Per Neurology, recs to reach back out to GI given diarrhea/constipation. GI stated gastric emptying low yield, agree w Lomotil and add Metamucil. Now that patient cleared out will start metamucil but educated to drink adequate water with such. No fever/chills. No nausea currently, no vomiting. She notes her stomach hurts a little, epigastric in location. Added Creon daily to see if any improvement given issues after eating pancakes/sausage yesterday. Hopeful for improvement overnight/normalization of bowels and control of nausea/diarrhea as she would like ot be home for the weekend. Questions/concerns addressed at this time. Review of Systems Review of Systems: All systems reviewed & are unremarkable except as noted in HPI & below Physical Exam Physical Exam: General: WD/WN frail elderly female sitting up in chair, NAD but stating feeling whipped out from all the diarrhea this morning HEENT: head normocephalic, atraumatic, slightly dry mm Resp: CTAB, no w/c/r, on room air CV: RRR, no m/r/g, no edema/calf tenderness GI:+BS, soft, tender epigastric region, no rebound/guarding : no Bruce MSK/Neuro: moves all extremities, CN intact grossly, strength equal Psych: AOx3, pleasant and cooperative, not confused Skin: rash to anterior chest wall/shoulders with scabbing IMPROVED Results & Data Results & Data ([facility]) Vital Signs (Past 12 Hours) Vital Signs Temp Pulse Resp BP Pulse Ox 03/06/22 07:39 36.5 C 66 18 177/89 H 98 03/05/22 20:25 36.5 C 77 16 133/73 93 Laboratory Results 03/06/22 03/06/22 03/05/22 Range/Units 06:00 06:00 17:26 WBC 6.87 (4.8-10.8) K/uL RBC 3.91 L (4.2-5.4) M/uL Hgb 12.9 (12.0-16.0) g/dL Hct 40.1 (37-47) % MCV 102.6 H (80-100) fL MCH 33.0 (25-34) pg MCHC 32.2 (32-36) g/dL RDW Std Deviation 52.5 H (36.4-46.3) fL RDW Coeff of Radha 14.0 (11.5-14.5) % Plt Count 164 (130-400) K/uL MPV 10.9 H (7.4-10.4) fL Sodium 141 (136-145) mmol/L Potassium 3.8 (3.5-5.1) mmol/L Chloride 105 (98-107) mmol/L Carbon Dioxide 33 H (21-32) mmol/L Anion Gap 3 (3-11) BUN 10 (6-23) mg/dl Creatinine 0.89 (0.6-1.2) mg/dl Est Cr Clr Drug Dosing 32.5 ml/min Est GFR ( Amer) 66.6 ml/min Est GFR (Non-Af Amer) 57.5 ml/min BUN/Creatinine Ratio 11.2 (10-20) Glucose 85 (70-99(Fasting)) mg/dl Calcium 8.5 (8.5-10.1) mg/dl Magnesium 1.7 (1.7-2.4) mg/dl Total Bilirubin 0.6 (0.2-1.0) mg/dl Direct Bilirubin 0.1 (0-0.2) mg/dl AST 24 (13-39) U/L ALT 13 (7-52) U/L Alkaline Phosphatase 69 (34-104) U/L Total Protein 5.6 L (6.0-8.3) gm/dl Albumin 3.2 L (3.4-5.0) gm/dl Globulin (2.5-4.0) gm/dl Albumin/Globulin Ratio (0.9-2) 25-OH Vitamin D Total (30-100) ng/ml Urine Color Dark Yellow Urine Appearance Cloudy A (Clear) Urine pH 5.0 (4.5-7.5) Ur Specific [place] 1.022 (1.000-1.030) Urine Protein 1+ H (Negative) Urine Glucose (UA) Negative (Negative) Urine Ketones Trace H (Negative) Urine Blood Negative (Negative) Urine Nitrite Negative (Negative) Urine Bilirubin Negative (Negative) Urine Urobilinogen Negative (Negative) Ur Leukocyte Esterase 1+ H (Negative) Urine WBC (Auto) 10-30 H (0-5) /hpf Urine RBC (Auto) 0-4 (0-4) /hpf U Hyaline Cast (Auto) 10-30 H (0-5) /lpf U Epithel Cells (Auto) >30 H (0-5) /lpf Urine Bacteria (Auto) 1+ H (Negative) Urine Crystals Not Reportable Calcium Oxalate Crystal Present A (None Prsent) 03/05/22 03/05/22 Range/Units 06:56 06:56 WBC (4.8-10.8) K/uL RBC (4.2-5.4) M/uL Hgb (12.0-16.0) g/dL Hct (37-47) % MCV (80-100) fL MCH (25-34) pg MCHC (32-36) g/dL RDW Std Deviation (36.4-46.3) fL RDW Coeff of Radha (11.5-14.5) % Plt Count (130-400) K/uL MPV (7.4-10.4) fL Sodium 142 (136-145) mmol/L Potassium 3.6 (3.5-5.1) mmol/L Chloride 107 (98-107) mmol/L Carbon Dioxide 33 H (21-32) mmol/L Anion Gap 2 L (3-11) BUN 11 (6-23) mg/dl Creatinine 0.91 (0.6-1.2) mg/dl Est Cr Clr Drug Dosing 31.8 ml/min Est GFR ( Amer) 64.8 ml/min Est GFR (Non-Af Amer) 55.9 ml/min BUN/Creatinine Ratio 12.1 (10-20) Glucose 86 (70-99(Fasting)) mg/dl Calcium 8.5 (8.5-10.1) mg/dl Magnesium 1.8 (1.7-2.4) mg/dl Total Bilirubin 0.7 (0.2-1.0) mg/dl Direct Bilirubin (0-0.2) mg/dl AST 18 (13-39) U/L ALT 11 (7-52) U/L Alkaline Phosphatase 51 (34-104) U/L Total Protein 5.3 L (6.0-8.3) gm/dl Albumin 3.0 L (3.4-5.0) gm/dl Globulin 2.3 L (2.5-4.0) gm/dl Albumin/Globulin Ratio 1.3 (0.9-2) 25-OH Vitamin D Total 45.0 (30-100) ng/ml Urine Color Urine Appearance (Clear) Urine pH (4.5-7.5) Ur Specific [place] (1.000-1.030) Urine Protein (Negative) Urine Glucose (UA) (Negative) Urine Ketones (Negative) Urine Blood (Negative) Urine Nitrite (Negative) Urine Bilirubin (Negative) Urine Urobilinogen (Negative) Ur Leukocyte Esterase (Negative) Urine WBC (Auto) (0-5) /hpf Urine RBC (Auto) (0-4) /hpf U Hyaline Cast (Auto) (0-5) /lpf U Epithel Cells (Auto) (0-5) /lpf Urine Bacteria (Auto) (Negative) Urine Crystals Calcium Oxalate Crystal (None Prsent) Diagnostic Findings KUB X-Ray 03/05/22 14:54 XR KUB/Abdomen 1 view CLINICAL HISTORY: n/v TECHNIQUE: 1 view of the abdomen was obtained. Comparison: Comparison is made to abdomen radiographs 03/04/2022 FINDINGS: Lung bases are unremarkable. Degenerative changes are seen in the visualized skeleton. Left hip prosthesis is seen. The bowel gas pattern is nonobstructive. Small stool burden is seen. IMPRESSION: Nonobstructive bowel gas pattern. ACT 112: Negative or not required by law. Electronically signed by: Roni Herring M.D. 03/05/2022 3:58 PM PG Care Time/CCT Total # of Minutes Spent Total Time Spent with Patient: Total time spent is greater than 50% in coordination of care (as documented) at patient's floor/unit and/or counseling patient: Coding Level of Care Code 68795 Subseq Hosp Care Lvl 3 Diagnoses Intractable vomiting with nausea R11.2 Papular rash R21 Swallowing difficulty R13.10 Dysphagia type: unspecified GERD (gastroesophageal reflux disease) K21.9 Myasthenia gravis, AChR antibody positive G70.00 CKD (chronic kidney disease) stage 3, GFR 30-59 ml/min N18.3 Cardiomyopathy I42.0 Cardiomyopathy type: dilated HLD (hyperlipidemia) E78.5 Hypothyroidism E03.9 HTN (hypertension), benign I10 Mixed stress and urge incontinence N39.46 Diabetes mellitus, type 2 E11.9 Macrocytosis D75.89 Constipation K59.00 Nausea and vomiting R11.2 (1) Swallowing difficulty Dysphagia type: unspecified Qualified Code(s): R13.10 - Dysphagia, unspecified (2) Cardiomyopathy Cardiomyopathy type: dilated Qualified Code(s): I42.0 - Dilated cardiomyopa thy
--- NOTE | 2022-03-06 08:29 | Neurology Consultation ---
Date of Consultation March 06, 2022 Assessment & Plan (1) Myasthenia gravis, AChR antibody positive: Seropositive myasthenia gravis, primarily bulbar symptoms, especially bilateral ptosis. Poor tolerance to previous Mestinon dosage increase. Would recommend continuing with the reduced dosage of this medication, 30 mg 3 times per day. Patient has also been prescribed Lomotil to address Mestinon related diarrhea. She may need to restart this medication as well, 1 tablet 3 times per day as needed for diarrhea. However, I understand she has had some problems with constipation as well and GI has recommended a bowel regimen including MiraLAX and Colace. At this point, I think if diarrhea is her primary issue, that it would be safe to resume a low-dose of Lomotil. May need to double check with GI as well regarding her bowel regimen as she experiences both diarrhea and constipation. As far as the generalized pruritic papular rash is concerned, I am uncertain if this rash is directly related to Mestinon or not. However, it is possible that it has arisen after the recent Mestinon dosage increase. She did not have such a rash while on the previous lower dosage of Mestinon. Also, I do not think she would tolerate completely discontinuing Mestinon due to dysphagia and ptosis. There is no other appropriate medication for symptomatic management of myasthenia. I doubt she would tolerate neostigmine tablets as neostigmine is about 4 times more potent than pyridostigmine. I would probably avoid sustained release Mestinon as the dosage is a bit higher than what I think she could tolerate. I would also rather avoid corticosteroids in this elderly female given the potential for further long-term side effects. History of Present Illness Reason for Consultation: Myasthenia gravis, assistance with medications Requesting Physician: Emili Stewart PA-C Attending Physician: Frank Park MD History of Present Illness The patient is an 87-year-old female with a history of seropositive ocular bulbar myasthenia gravis diagnosed a few years ago. She established with [facility] neurology in 2019 for further evaluation of dysphagia and ptosis. I last evaluated her January 31, 2022. Her symptoms have been responding to a relatively low dose of Mestinon, 30 mg 3 times per day at that time although she was still bothered by intermittent ptosis and was planning on proceeding with bilateral eyelid blepharoplasty. I have therefore recommended increasing her dosage of Mestinon to 60 mg 3 times per day to determine if a larger dosage of Mestinon would further improve her ptosis to the extent that she may not require the eyelid surgery. I had also refilled her prescription for Lomotil which has been prescribed to mitigate medication induced diarrhea. She was subsequently admitted to the [facility] on February 08 for further evaluation and management of diarrhea complicated by fecal impaction. She was discharged on February 20. Her Mestinon was continued at 60 mg 3 times per day at that time. The Lomotil was discontinued. MiraLAX and Senokot was started. The patient was readmitted to the [facility] March 01 with nausea, vomiting, and dysphagia. Her Mestinon has been restarted at a lower dose. She has been noted to have a generalized pruritic papular rash which seems to be new. Allergies Allergy/AdvReac Type Severity Reaction Status Date / Time celecoxib Allergy Severe SX OF Verified 03/01/22 12:10 STROKE, FACIAL NUMBNESS, UNABLE TO SPEAK fesoterodine [From Toviaz] Allergy Unknown Unknown Verified 03/01/22 12:10 solifenacin [From Vesicare] Allergy Unknown Unknown Verified 03/01/22 12:10 morphine AdvReac Intermediate Confusion Verified 03/01/22 12:10 ciprofloxacin AdvReac Mild UPSET Verified 03/01/22 12:10 STOMACH metronidazole AdvReac Mild N/V Verified 03/01/22 12:10 Home Medications Medication Instructions Recorded Confirmed Type cholecalciferol (vitamin D3) 50 2,000 unit PO QAM 08/05/18 03/01/22 History mcg (2,000 unit) tablet (Vitamin D3) ascorbic acid (vitamin C) 500 mg 500 mg PO QAM tab 02/26/19 03/01/22 History tablet multivit with 1 tab PO QAM 08/21/20 03/01/22 History tshjbpxk-vgcp-NW-lutein 8 mg iron-400 mcg-300 mcg tablet (Centrum Silver Women) acetaminophen 500 mg tablet 1,000 mg PO TID PRN 01/15/21 03/01/22 History vitamin A 2,400 mcg capsule 2,400 mcg PO QAM cap 01/23/21 03/01/22 History vitamin E 100 unit capsule 100 unit PO QAM cap 01/23/21 03/01/22 History cyanocobalamin (vitamin B-12) 500 mcg PO QAM tab 03/26/21 03/01/22 History 1,000 mcg tablet (Vitamin B-12) atorvastatin 40 mg tablet 40 mg PO HS #90 tab 04/30/21 03/01/22 Rx pantoprazole 40 mg tablet,delayed 40 mg PO QAM #30 tab 05/07/21 03/01/22 Rx release glucosamine-chondroitin 250 mg-200 1 tab PO QAM 05/13/21 03/01/22 History mg tablet (Osteo Bi-Flex) oxybutynin chloride 5 mg 5 mg PO HS #30 tab 10/01/21 03/01/22 Rx tablet,extended release 24 hr gabapentin 300 mg capsule 600 mg PO HS #60 cap 11/19/21 03/01/22 Rx diphenhydramine 25 2 tab PO HS 12/15/21 03/01/22 History mg-acetaminophen 500 mg tablet (Tylenol PM Extra Strength) pyridostigmine bromide 60 mg 60 mg PO TID 90 Days #270 tab 01/31/22 03/01/22 Rx tablet (Mestinon) alendronate 70 mg tablet 70 mg PO WK 02/07/22 03/01/22 History sennosides 8.6 mg-docusate sodium 1 tab PO BID #60 tab 02/27/22 03/01/22 Rx 50 mg tablet (Senokot-S) Saccharomyces boulardii 250 mg 250 mg PO BID #20 cap 03/01/22 Rx capsule (Florastor) cefdinir 300 mg capsule 300 mg PO BID 7 Days #14 cap 03/01/22 Rx famotidine 10 mg tablet 10 mg PO QAM 03/01/22 03/01/22 History famotidine 20 mg tablet 20 mg PO BID #20 tab 03/01/22 Rx levothyroxine 137 mcg tablet 137 mcg PO QAM 03/01/22 03/01/22 History lisinopril 10 mg tablet 10 mg PO QAM 03/01/22 03/01/22 History ondansetron 4 mg disintegrating 4 mg PO Q6H PRN #14 tab 03/01/22 Rx tablet Patient History Medical History Acute back pain Acute UTI Anemia Cardiac defibrillator in place Cardiomyopathy Carotid artery stenosis Chronic pancreatitis CKD (chronic kidney disease) stage 3, GFR 30-59 ml/min Colitis Degenerative joint disease (DJD) of hip Diabetes mellitus, type 2 Diabetic nephropathy Diabetic peripheral neuropathy Diverticulitis Diverticulosis of colon Duodenal ulcer Fall Fall GERD (gastroesophageal reflux disease) GERD without esophagitis HLD (hyperlipidemia) HTN (hypertension), benign Hypercholesterolemia Hypothyroid IBS (irritable bowel syndrome) ICD (implantable cardioverter-defibrillator) battery depletion Insomnia Lumbar canal stenosis Lumbar spondylosis Nocturia Nonischemic cardiomyopathy Osteoarthritis Osteoporosis Presence of cardiac pacemaker Pulmonary nodule Rib fracture 09/17/18 R/T FALL. D/C'D TO [facility]. Scaphoid fracture of wrist Urge incontinence of urine Vitamin D deficiency, unspecified Surgical History History of cardiac cath PER PT, 5-10 YEARS AGO AT [facility] - REASON? - NO STENTS/ANGIOPLASTY History of cholecystectomy History of colonoscopy History of ERCP w/ sphincterotomy & CBD stent History of esophagogastroduodenoscopy (EGD) History of vertebroplasty T12 S/P appendectomy S/P hysterectomy S/P ICD (internal cardiac defibrillator) procedure Biventricular AICD placed in 2007, Generator Change-out 02/15/2020 -- now has a [employer]tronic Claria MRI MACHINE RIGGER-D Bi-V AICD. S/P kyphoplasty S/P partial colectomy S/P rotator cuff surgery Family History Son Diabetes Sister Breast cancer Denies family history of Ovarian cancer Prostate cancer Hearing loss Coronary heart disease No family history of adverse response to anesthesia No family history of bleeding disorder Heart disease Allergies Myocardial infarction Colorectal cancer Cancer Hypertension Stroke Asthma Social History Smoking Status: Never smoker Second Hand Exposure: No; Hx Alcohol Use: No Hx Substance Use: No Preferred Language: [place] Citizen Communication Ability: Effective Visual Impairment: No Limitations Hearing Ability: Normal Broadcasting Equipment Mechanic Required: No Beliefs That Will Affect Care: None marital status: Current Living Situation: Spouse current occupational status: retired current occupation: retired from career with [employer] How many Children do You have: 6 Other Information That Helps Us Care for You: No Feels Safe at Home: Yes Safety Concerns: Feels Safe At This Time Childhood Exposure to Second-Hand Smoke: No caffeine: Yes Dental Care, Regularly: No Physical Activity Frequency: Does not Exercise Seatbelt Use: always Sunscreen Use: No Assistive Devices: Walker Review of Systems Constitutional: no fever and no chills Eyes: no blind spots and no diplopia Ear, Nose, Mouth, Throat: no ear pain and no hearing loss Respiratory: no cough and no dyspnea Cardiovascular: no chest pain and no palpitations Gastrointestinal: as per Subjective / HPI, + nausea and + diarrhea/loose stools Genitourinary: no urinary urgency and no urinary incontinence Musculoskeletal: no muscle weakness and no muscle atrophy Integumentary: as per Subjective / HPI and + rash Neurologic: as per Subjective / HPI Psychiatric: no behavioral changes, no depression, no abnormal sleep pattern and no anxiety Hematologic / Lymphatic: no easy bruising and no lymphadenopathy Exam (Neuro) Constitutional: well developed and well nourished; no acute distress Eyes: normal visual collins by confrontation, + eyelid abnormality (bilateral mild to moderate ptosis noted), PERRL, normal accommodation and EOM intact bilaterally; no fundoscopic abnormality, no nystagmus and no papilledema Cardiovascular: Vessels: normal carotid upstroke; no carotid bruit Neurologic: Oriented to:: Person, Place and Time Memory: Short Term Intact and Remote Intact Attention: Span Intact and Concentration Intact Language: Naming Objects and Repeating Phrases Speech Fluency: Other (mild dysphonia noted); negative Dysarthria Speech Aphasia: negative Aphasia Fund of Knowledge: Current Events, Past History and Vocabulary Cranial Nerves: Normal II (Visual collins full to confrontation, visual acuity normal), III, IV, (Pupils equal round reactive to light and accommodation, eye movements normal), V (Facial sensation intact), VII (There is no facial droop or weakness), VIII (Hearing intact), IX, X (Palate elevates to midline), XI (Shoulder shrug intact) and XII (Tongue protrudes to midline) Motor Strength: Normal Lower Extremities and Normal Upper Extremities; negative Pronator Drift Motor Tone: Normal Lower Extremities and Normal Upper Extremities Muscle Bulk/Involuntary Movements: No Involuntary Movements; negative Muscle Atrophy Sensation: Light Touch Intact, Pain/Temperature Intact, Vibration Intact and Proprioception Intact Coordination: Normal; negative Limited Balance, Dysdiadochokinesia, Finger-Nose Abnormal or Heel-Houser Abnormal Deep Tendon Reflexes: Rt Triceps: 2+, Lt Triceps: 2+, Rt Biceps: 2+, Lt Biceps: 2+, Rt Brachioradialis: 2+, Lt Brachioradialis: 2+, Rt Patellar: 2+, Lt Patellar: 2+, Rt Ankle: 1+ and Lt Ankle: 1+ Special Tests: negative Babinski Present Gait: Normal Station and Gait Results & Data ([facility]) Vital Signs (Past 12 Hours) Vital Signs Temp Pulse Resp BP Pulse Ox 03/06/22 07:39 36.5 C 66 18 177/89 H 98 03/05/22 20:25 36.5 C 77 16 133/73 93 Laboratory Results WBC 6.7, hemoglobin 12.9, hematocrit 40.1, MCV 102.6, platelet count 164, sodium 141, potassium 3.8, BUN 10, creatinine 0.89, glucose 85, calcium 8.5, magnesium 1.7, AST 24, ALT 13 Diagnostic Findings X-ray KUB/abdomen revealed nonobstructive bowel gas pattern. Chest x-ray revealed possible trace bilateral pleural effusions versus scarring. No airspace opacities. CT of the abdomen and pelvis revealed moderate wall thickening of the inferior rectum and anorectal junction, suspicious for nonspecific proctitis, no bowel obstruction or pneumoperitoneum. Trace pleural effusions with groundglass opacities of the basal left lower lobe suggestive of atelectasis versus pneumonitis. Colonic diverticulosis. An electrocardiogram revealed a normal sinus rhythm, 90 bpm. An echocardiogram completed February 09, 2022 revealed normal left ventricular systolic function, no regional wall motion abnormalities, EF 65 to 70%. Coding Level of Care Code 83459 Initial Inpt Care Lvl 3 Diagnoses Myasthenia gravis, AChR antibody positive G70.00
[2022-03-06] MEDS: PANTOprazole 40 MG TAB PO SCH (08:56)
[2022-03-06] MEDS: HEPARIN SOD 5,000 UNIT/0.5 ML VIAL SQ SCH ×2 (08:56→20:44)
[2022-03-06] MEDS: SUCRALFATE 1 GM/10 ML UDC PO SCH ×2 (08:56→11:51)
[2022-03-06] MEDS: CEROVITE ADV FORMULA TAB PO SCH (08:56)
[2022-03-06] MEDS: TRIAMCINOLONE ACET 0.1% CR 15 GM TUBE EXT SCH ×3 (08:57→20:45)
[2022-03-06] MEDS ORDERED: DIPHENOXYLATE/ATROPINE 2.5/0.025MG TAB PO PRN (09:06)
[2022-03-06 11:41] LABS: EBV Nuclear Ag Antibody <18.00 U/mL; EBV Virus Capsid Ag IgG Ab >750.00 U/mL
[2022-03-06] MEDS ORDERED: PANCREAZE (LIPASE 10,500U) CAP PO SCH (11:45)
[2022-03-06] MEDS: ACETAMINOPHEN 500 MG TAB PO PRN (11:51)
[2022-03-06] MEDS: FAMOTIDINE 10 MG TABLET PO SCH (11:51)
[2022-03-06 12:50] LABS: Adenovirus F 40/41 PCR Not Detected (NotDetected); Astrovirus PCR Not Detected (NotDetected); Campylobacter PCR Not Detected (NotDetected); Clostridium diff Toxin A/B PCR Not Detected (NotDetected); Cryptosporidium PCR Not Detected (NotDetected); Cyclospora cayetanensis PCR Not Detected (NotDetected); Entamoeba histolytica PCR Not Detected (NotDetected); Enteroaggregative E.coli(EAEC) Not Detected (NotDetected); Enteropathogenic E.coli (EPEC) Not Detected (NotDetected); Enterotoxigenic E.coli (ETEC) Not Detected (NotDetected); Giardia lamblia PCR Not Detected (NotDetected); Norovirus GI/GII PCR Not Detected (NotDetected); Plesiomonas shigelloides PCR Not Detected (NotDetected); Rotavirus A PCR Not Detected (NotDetected); Salmonella PCR Not Detected (NotDetected); Sapovirus PCR Not Detected (NotDetected); Shiga-like Toxin E.coli (STEC) Not Detected (NotDetected); Shigella/Enteroinvasive E.coli Not Detected (NotDetected); Vibrio cholerae PCR Not Detected (NotDetected); Vibrio species PCR Not Detected (NotDetected); Yersinia enterocolitica PCR Not Detected (NotDetected)
--- NOTE | 2022-03-06 12:51 | Communication Note ---
Date of Service: March 06, 2022 Was contacted by hospitalist regarding further recommendations for patient. Patient's constipation has resolved based on xray imaging. She is now experienci ng frequent diarrhea felt to be secondary to Mestinon. Neurology wanted to utilize Lomotil but wanted to check with GI first. Okay to do a standing dose of Lomotil QAM. Would emphasized importance of daily powdered fiber supplement with mixed picture of constipation-diarrhea. Would not advise inpatient gastric emptying study. Patient can follow-up in the office for ongoing evaluation and consideration of colonoscopy to assess rectal abnormalities visualized on CT, but due to her myasthenia, she may be a good candidate to see a neurogastroenterologist to aid in recommendations to improve quality of life. Of note, she has had a negative biofire stool panel today.
[2022-03-06] MEDS ORDERED: SODIUM CHLORIDE 0.9% 500 ML IV SCH (13:30)
[2022-03-06] MEDS: CHOLESTYRAMINE LIGHT 4 GM PKT PO SCH ×2 (13:59→22:35)
[2022-03-06] MEDS: ONDANSETRON INJ 2 MG/ML 2 ML VIAL IV PRN (14:07)
[2022-03-06] MEDS: PSYLLIUM or GUAR GUM FIBER POWDER PACKET PO SCH (17:12)
[2022-03-06] MEDS ORDERED: ONDANSETRON 4 MG OD TAB PO PRN (18:31)
[2022-03-06] MEDS: GABAPENTIN 300 MG CAP PO SCH (20:43)
[2022-03-06] MEDS: OXYBUTYNIN CHLORIDE XL 5 MG TABCR PO SCH (20:44)
[2022-03-06] MEDS: ATORVASTATIN 40 MG TAB PO SCH (20:45)
[2022-03-07] MEDS: LEVOTHYROXINE SODIUM 137 MCG TABLET PO SCH (06:09)
[2022-03-07] MEDS: PYRIDOSTIGMINE BROMIDE 60 MG TAB PO SCH ×3 (06:09→16:23)
--- NOTE | 2022-03-07 08:22 | Hospitalist Progress Note ---
Date of Service March 07, 2022 Assessment & Plan (1) UTI (urinary tract infection): Plan: admitted with intractable n/v, underlying etiology was unclear initial urine collected on admission without concerns for infection, however possible with constipation ?retention contributing to current uti patient reported increased urinary frequency but no burning Urine cx sent previously, now with Klebsiella, gamma strep (no stones on CTAP on admission, however does note calcium oxalate on sample, ?passed stone) placing on amoxicillin Q8h PO and will monitor antiemetics available prn if improvement/resolution of symptoms plan to send on course amoxicillin at discharge (2) Intractable vomiting with nausea: Plan: Unclear underlying cause initially , waldo given negative ua on admit Lipase 22 (of note, prior values seem upper normal range, recent checks all low, ?creon) In 2018, pancreatitis with R sided abd/back pain related to c.diff colitis vs duodenal ulcers--Stricture in CBD s/p sphincterotomy in Jul 2016 and EGD showed a non-bleeding superficial duodenal ulcer at that time Mild proctitis on CT, suspected from prior fecal impaction --> no need for abx at this time/WBC not further elevated (however infections in past without elevation/fevers at home) cdiff testing negative x 2, pcr negative -- performed for diarrhea x 14 times 03/06. Lomotil available daily, additional prn Changed back to pyridostigmine 30mg TID (taking at home) as increased dose could have caused worsening diarrhea Continue PPI daily, famotidine GI consulted Rec adding metamucil to help bulk stools Added Questran (hx cholecystectomy) outpt f/u for c-scope if continued issues Given 500cc NSS for diarrheal losses - IV went bad, refusing additional placement Gastric emptying study benign Discussed with patient importance of daily BMs to prevent constipation/worsening abdominal pain (3) Papular rash: Plan: ? medication induced given increase pyridostigmine to 60mg TID on admission (getting 30mg TID at home) Triamcinolone ordered and rash almost resolved with use and back to usual pyridostigmine dose CRP/ESR wnl (4) Swallowing difficulty: Plan: Reportedly has difficulty swallowing, chokes on water. Not new. Speech saw -- easy to chew diet, aspiration, reflux precautions Meds adjusted for myasthenia and reported no issues with swallowing -- monitor, no issues (5) GERD (gastroesophageal reflux disease): Plan: Continue Pepcid and PPI. tx for n/v/d as above, uti (6) Myasthenia gravis, AChR antibody positive: Plan: On 60mg tid on admission however was only taking 30mg TID at home Neuro consulted, changed back to 30mg TID Seems to be stable at this time and will monitor on reduced dose -- stable on 30mg dose for now outpt f/u neurology (7) CKD (chronic kidney disease) stage 3, GFR 30-59 ml/min: Plan: Baseline creatinine 0.81.1; at baseline on admission. Cr stable avoid nephrotoxins/renal dose meds when able BMP in AM (8) Cardiomyopathy: Plan: History of, s/p ICD with improvement in EF from 25% to 60%. - No evidence today of pulmonary edema or JVD. (9) HLD (hyperlipidemia): Plan: Continue statin. (10) Hypothyroidism: Plan: TSH 1.506 Continue levothyroxine home dose (11) HTN (hypertension), benign: Plan: BP stable 134/71 Holding lisinopril due to poor PO intake and tx UTI as above (attempted to give 500cc yesterday but only got about half and refusing additional IV site) Monitor, resume lisinopril if intake improved with tx UTI (12) Mixed stress and urge incontinence: Plan: - Continue oxybutynin. (13) Diabetes mellitus, type 2: Plan: No current home meds. - Did well with regular diet on last admission (14) Macrocytosis: Plan: not new B12/folate without deficiency TSH wnl will check peripheral smear as appears longstanding -- no evidence for MDS ?medication related/infection w/ uti? can f/u outpatient with PCP (15) Constipation: Plan: working on bowel regimen as above hx c.diff colitis 2018 C. DIFF NEGATIVE 03/04, repeat negative 03/06 (16) Nausea and vomiting: Plan: no vomiting reported but reported nausea following eating (?ulcer, increased PPI to BID, added Carafate but ?if causing issues and will dc carafate and back PPi to once daily) zofran prn now with uti as above, tx as outlined Plan: SCDs, Heparin SQ for DVT prophylaxis continued inpatient stay, hopeful for resolution of sx with tx UTI and d/c home with family tomorrow Admission and Anticipated Discharge Date Admission Date: March 03, 2022 Subjective eval this afternoon following GES, which was normal patient complaints of nausea/abdominal discomfort, in the middle of the abdomen and lower, along with increased urinary frequency. she states she didn't get her MG medication before lunch but no issues with eating --> she did in fact get the medication and forgot. daughter at bedside states she has been a little more forgetful with the longer term memory and forgot what she ate last evening. ?delirium but urine cx pin point growth and consideration to tx for uti but will discuss with supervising provider first. She notes no further diarrhea. No issues with swallowing. Returned to discuss positive urine culture with daughter at bedside and patient. plan to start abx/monitor overnight and if stable plan to d/c Review of Systems Review of Systems: All systems reviewed & are unremarkable except as noted in HPI & below Physical Exam Physical Exam: General: WD/WN frail elderly female sitting up in chair, NAD, eating lunch with family at bedside but reporting abdominal discomfort, nausea HEENT: head normocephalic, atraumatic, mmm Resp: CTAB, no w/c/r, on room air CV: RRR, no m/r/g, no edema/calf tenderness GI:+BS, soft, minimally tender suprapubic region, prior incisional scares well healed from bowel surgeries : no Bruce, no CVA tenderness MSK/Neuro: moves all extremities, CN intact grossly, strength equal Psych: AOx3, pleasant and cooperative, not confused Skin: rash to anterior chest wall/shoulders with scabbing IMPROVED, almost resolved Results & Data Results & Data ([facility]) Vital Signs (Past 12 Hours) Vital Signs Temp Pulse Pulse Resp BP Pulse Ox 03/07/22 07:55 36.9 C 79 18 172/67 H 94 03/06/22 20:38 37.0 C 86 16 145/85 H 93 Laboratory Results 03/07/22 03/07/22 Range/Units 12:11 12:11 WBC 5.80 (4.8-10.8) K/uL RBC 3.96 L (4.2-5.4) M/uL Hgb 13.2 (12.0-16.0) g/dL Hct 40.8 (37-47) % MCV 103.0 H (80-100) fL MCH 33.3 (25-34) pg MCHC 32.4 (32-36) g/dL RDW Std Deviation 51.3 H (36.4-46.3) fL RDW Coeff of Radha 13.6 (11.5-14.5) % Plt Count 173 (130-400) K/uL MPV 10.7 H (7.4-10.4) fL Immature Gran % (Auto) 0.2 % Neut % (Auto) 57.4 % Lymph % (Auto) 30.2 % [place] % (Auto) 7.6 % Eos % (Auto) 4.1 % Baso % (Auto) 0.5 % Neut # (Auto) 3.33 (1.4-6.5) K/uL Lymph # (Auto) 1.75 (1.2-3.4) K/uL [place] # (Auto) 0.44 (0.11-0.59) K/uL Eos # (Auto) 0.24 (0-0.5) K/uL Baso # (Auto) 0.03 (0-0.2) K/uL Immature Gran # (Auto) 0.01 (0.00-0.02) K/uL Sodium 141 (136-145) mmol/L Potassium 4.1 (3.5-5.1) mmol/L Chloride 103 (98-107) mmol/L Carbon Dioxide 34 H (21-32) mmol/L Anion Gap 4 (3-11) BUN 14 (6-23) mg/dl Creatinine 0.94 (0.6-1.2) mg/dl Est Cr Clr Drug Dosing 30.7 ml/min Est GFR ( Amer) 62.3 ml/min Est GFR (Non-Af Amer) 53.8 ml/min BUN/Creatinine Ratio 14.9 (10-20) Glucose 104 H (70-99(Fasting)) mg/dl Calcium 9.3 (8.5-10.1) mg/dl Diagnostic Findings Gastric Emptying Nuclear Medicine 03/07/22 08:00 NM gastric emptying study CLINICAL HISTORY: continued n/v, ?gastroparesis TECHNIQUE: The patient was given food with 1 mCi of Tc 99m labeled sulfur colloid. Sequential images centered on the stomach were obtained immediately f ollowing the meal, then at 1, 2, and 4 hours following the meal. All imaging was performed in the upright position. This is a solid phase study. COMPARISON: None. FINDINGS: The geometric mean remaining tracer was 72%, 54, and 7 %at 1 hour, 2 hours, and 4 hours respectively. The normal values for gastric retention are 30- 90%, 30-60%, and 10% respectively. IMPRESSION: Normal gastric emptying study without evidence of gastroparesis or rapid gastric emptying ACT 112: Negative or not required by law. Electronically signed by: Roni Herring M.D. 03/07/2022 1:02 PM PG Care Time/CCT Total # of Minutes Spent Total Time Spent with Patient: Total time spent is greater than 50% in coordination of care (as documented) at patient's floor/unit and/or counseling patient: Coding Level of Care Code 22585 Subseq Hosp Care Lvl 3 Diagnoses Intractable vomiting with nausea R11.2 Papular rash R21 Swallowing difficulty R13.10 Dysphagia type: unspecified GERD (gastroesophageal reflux disease) K21.9 Myasthenia gravis, AChR antibody positive G70.00 CKD (chronic kidney disease) stage 3, GFR 30-59 ml/min N18.3 Cardiomyopathy I42.0 Cardiomyopathy type: dilated HLD (hyperlipidemia) E78.5 Hypothyroidism E03.9 HTN (hypertension), benign I10 Mixed stress and urge incontinence N39.46 Diabetes mellitus, type 2 E11.9 Macrocytosis D75.89 Constipation K59.00 Nausea and vomiting R11.2 UTI (urinary tract infection) N39.0 (1) Swallowing difficulty Dysphagia type: unspecified Qualified Code(s): R13.10 - Dysphagia, unspecified (2) Cardiomyopathy Cardiomyopathy type: dilated Qualified Code(s): I42.0 - Dilated cardiomyopathy
[2022-03-07] MEDS: FAMOTIDINE 10 MG TABLET PO SCH (08:35)
[2022-03-07] MEDS: PANTOprazole 40 MG TAB PO SCH (08:36)
[2022-03-07] MEDS: PSYLLIUM or GUAR GUM FIBER POWDER PACKET PO SCH (08:36)
[2022-03-07] MEDS: HEPARIN SOD 5,000 UNIT/0.5 ML VIAL SQ SCH ×2 (08:36→20:21)
[2022-03-07] MEDS: TRIAMCINOLONE ACET 0.1% CR 15 GM TUBE EXT SCH ×3 (08:36→20:23)
[2022-03-07] MEDS: CEROVITE ADV FORMULA TAB PO SCH (08:36)
[2022-03-07] MEDS: CHOLESTYRAMINE LIGHT 4 GM PKT PO SCH ×2 (10:27→21:22)
[2022-03-07 12:29] LABS: Basophils # (auto) 0.03 K/uL (0-0.2); Basophils % (auto) 0.5 %; Eosinophils # (auto) 0.24 K/uL (0-0.5); Eosinophils % (auto) 4.1 %; Hematocrit (blood only) 40.8 % (37-47); Hemoglobin 13.2 g/dL (12.0-16.0); Immature Granulocytes # (auto) 0.01 K/uL (0.00-0.02); Immature Granulocytes % (auto) 0.2 %; Lymphocytes # (auto) 1.75 K/uL (1.2-3.4); Lymphocytes % (auto) 30.2 %; Mean Corpuscular Hemoglobin 33.3 pg (25-34); Mean Corpuscular Hgb Conc 32.4 g/dL (32-36); Mean Platelet Volume 10.7 fL (7.4-10.4); Monocytes # (auto) 0.44 K/uL (0.11-0.59); Monocytes % (auto) 7.6 %; Neutrophils # (auto) 3.33 K/uL (1.4-6.5); Neutrophils % (auto) 57.4 %; Platelet Count 173 K/uL (130-400); RDW Coefficient of Variation 13.6 % (11.5-14.5); RDW Standard Deviation 51.3 fL (36.4-46.3); Red Blood Count 3.96 M/uL (4.2-5.4)
[2022-03-07 12:42] LABS: BUN Creatinine Ratio 14.9 (10-20); Calcium 9.3 mg/dl (8.5-10.1); Creatinine Clr Calc Pharmacy 30.7 ml/min; Est GFR (African American) 62.3 ml/min; Est GFR (Non-African American) 53.8 ml/min; Potassium 4.1 mmol/L (3.5-5.1)
--- NOTE | 2022-03-07 13:04 | Nuclear Medicine Report ---
NM gastric emptying study CLINICAL HISTORY: continued n/v, ?gastroparesis TECHNIQUE: The patient was given food with 1 mCi of Tc 99m labeled sulfur colloid. Sequential images centered on the stomach were obtained immediately following the meal, then at 1, 2, and 4 hours follo wing the meal. All imaging was performed in the upright position. This is a solid phase study. COMPARISON: None. FINDINGS: The geometric mean remaining tracer was 72%, 54, and 7 %at 1 hour, 2 hours, and 4 hours res pectively. The normal values for gastric retention are 30-90%, 30-60%, and 10% respectively. IMPRESSION: Normal gastric emptying study without evidence of gastroparesis or rapid gastric emptying ACT 112: Negative or not required by law. Electronically signed by: Roni Herring M.D. 03/07/2022 1:02 PM
[2022-03-07] MEDS ORDERED: AMOXICILLIN 500 MG CAP PO SCH (14:25)
[2022-03-07 14:56] LABS: 18KDIGG Band NON-REACTIVE; 23KDIGG Band NON-REACTIVE; 23KDIGM Band NON-REACTIVE; 28KDIGG Band NON-REACTIVE; 30KDIGG Band NON-REACTIVE; 39KDIGG Band NON-REACTIVE; 39KDIGM Band NON-REACTIVE; 41KDIGG Band REACTIVE; 41KDIGM Band NON-REACTIVE; 45KDIGG Band NON-REACTIVE; 58KDIGG Band REACTIVE; 66KDIGG Band REACTIVE; 93KDIGG Band NON-REACTIVE; Lyme Antibodies, WB IgG NEGATIVE (NEGATIVE); Lyme Antibodies, WB IgM NEGATIVE (NEGATIVE)
[2022-03-07] MEDS: cephALEXin 500 MG CAP PO SCH ×2 (16:56→20:21)
[2022-03-07] MEDS ORDERED: cephALEXin 250 MG CAP PO SCH (17:00)
[2022-03-07] MEDS: OXYBUTYNIN CHLORIDE XL 5 MG TABCR PO SCH (20:20)
[2022-03-07] MEDS: ATORVASTATIN 40 MG TAB PO SCH (20:20)
[2022-03-07] MEDS: GABAPENTIN 300 MG CAP PO SCH (20:20)
[2022-03-07] MEDS: DOCUSATE SODIUM 100 MG CAP PO SCH (20:21)
[2022-03-08] MEDS: PYRIDOSTIGMINE BROMIDE 60 MG TAB PO SCH ×2 (05:50→10:41)
[2022-03-08] MEDS: LEVOTHYROXINE SODIUM 137 MCG TABLET PO SCH (05:50)
[2022-03-08] MEDS: cephALEXin 500 MG CAP PO SCH (07:48)
[2022-03-08] MEDS: CEROVITE ADV FORMULA TAB PO SCH (07:49)
[2022-03-08] MEDS: PANTOprazole 40 MG TAB PO SCH (07:49)
[2022-03-08] MEDS: FAMOTIDINE 10 MG TABLET PO SCH (07:49)
[2022-03-08] MEDS: HEPARIN SOD 5,000 UNIT/0.5 ML VIAL SQ SCH (07:50)
[2022-03-08] MEDS: TRIAMCINOLONE ACET 0.1% CR 15 GM TUBE EXT SCH (07:50)
[2022-03-08] MEDS: PSYLLIUM or GUAR GUM FIBER POWDER PACKET PO SCH (07:50)
--- NOTE | 2022-03-08 07:50 | Hospitalist Progress Note ---
Date of Service March 08, 2022 Assessment & Plan Admission and Anticipated Discharge Date Admission Date: March 03, 2022 Results & Data Results & Data ([facility]) Vital Signs (Past 12 Hours) Vital Signs Temp Pulse Pulse Resp BP Pulse Ox 03/08/22 07:37 36.6 C 67 16 137/70 90 03/07/22 20:05 36.6 C 77 16 151/83 H 92 PG Care Time/CCT Total # of Minutes Spent Total Time Spent with Patient: Total time spent is greater than 50% in coordination of care (as documented) at patient's floor/unit and/or counseling patient: Coding
[2022-03-08] MEDS: DOCUSATE SODIUM 100 MG CAP PO SCH (07:51)
--- NOTE | 2022-03-08 09:58 | Discharge Summary ---
Date of Service March 08, 2022 Admission HPI Per Admitting Provider Katty Reynolds is an 87 y/o female with a past medical history of MGUS, myasthenia gravis, osteoporosis, urinary retention/stress incontinence, hypertension, GERD, diabetes, NNAMDI, CKD, chronic constipation who presents today for evaluation of nausea and vomiting that began last evening. She was recently discharged on 02/20 after a nearly 2-week hospitalization for fecal impaction and generalized weakness. It was hopeful that she would be discharged to rehab facility, however her insurance did not approve it. She had been doing well initially for the first couple days at home, however the past 2 days has developed nonbloody diarrhea, nausea, and vomiting. She is insure how many times she has vomited. She has not had anything to eat in the past 2 days. Also complaining of vague, generalized abdominal pain. Last BM was today, however it was diarrhea but she does report that she had a formed stool yesterday. Denies fever or chills at home, chest pain, palpitation, shortness of breath, cough, hematochezia, melena, hematemesis. Due to patient's frequent emesis at home and myasthenia gravis, family expressed concern that she may be unable to be compliant with her medications. In ED, she is hypertensive, otherwise vital signs stable. Labs unremarkable. CXR unremarkable. CT A/P showed moderate wall thickening of the inferior rectum and anorectal junction. No bowel obstruction or pneumoperitoneum. Admission Exam Per Admitting Provider General: awake, alert, no apparent distress Head: Normocephalic, atraumatic ENT: PERRL, EOMI, no pharyngeal exudate, mucous membranes moist Chest: Clear to auscultation, on room air, no adventitious breath sounds Cardiac: Regular rate and rhythm, no murmur, no JVD, normal peripheral pulses, good capillary refill Abdominal: TTP in LLQ; NABS x 4 quadrants, soft, no rebound, guarding or tenderness Extremities: Normal inspection, no peripheral edema or erythema, calfs nontender to palpation Psych: Normal mood and affect Neuro: AAO x 3, strength intact bilaterally and rated 5/5, no motor deficits, speech is clear, no peripheral sensory deficits Skin: no rash or erythema Principal Diagnosis Intractable N/V Discharge Exam General: WD/WN frail elderly female sitting up in chair, NAD, improved comfort and energy HEENT: head normocephalic, atraumatic, mmm Resp: CTAB, no w/c/r, on room air CV: RRR, no m/r/g, no edema/calf tenderness GI:+BS, soft, non-tender, prior incisional scars from surgery well healed : no Bruce, no CVA tenderness MSK/Neuro: moves all extremities, CN intact grossly, strength equal Psych: AOx3, pleasant and cooperative, not confused Skin: rash to anterior chest wall/shoulders with scabbing IMPROVED, almost completely resolved Discharge Data Allergies Allergy/AdvReac Type Severity Reaction Status Date / Time celecoxib Allergy Severe SX OF Verified 03/01/22 12:10 STROKE, FACIAL NUMBNESS, UNABLE TO SPEAK fesoterodine [From Toviaz] Allergy Unknown Unknown Verified 03/01/22 12:10 solifenacin [From Vesicare] Allergy Unknown Unknown Verified 03/01/22 12:10 morphine AdvReac Intermediate Confusion Verified 03/01/22 12:10 ciprofloxacin AdvReac Mild UPSET Verified 03/01/22 12:10 STOMACH metronidazole AdvReac Mild N/V Verified 03/01/22 12:10 Consultations 03/01/22 16:38 ED Decision to Admit Stat 03/01/22 21:14 Consult Gastroenterology Routine 03/05/22 16:56 Consult Neurology Routine Ordered Studies Chest X-Ray 03/01/22 10:31 XR chest 1V portable CLINICAL HISTORY: Atypical chest pain TECHNIQUE: Single frontal radiograph of the chest was obtained. Comparison: Comparison is made to chest radiograph 02/08/2022 FINDINGS: Pacemaker defibrillator is seen. Calcified aortic knob is seen. Degenerative changes are seen in the bilateral shoulder joints and thoracic spine. The lungs are clear. No evidence of pleural effusion or pneumothorax. IMPRESSION: No acute chest disease. ACT 112: Negative or not required by law. Electronically signed by: Roni Herring M.D. 03/01/2022 10:57 AM Abdomen/Pelvis CT 03/01/22 10:[address] WITH IV CONTRAST CT DOSE: 371.65 mGy.cm HISTORY: Acute generalized abdominal pain with nausea and vomiting abd pain, n/v TECHNIQUE: Multiaxial CT images of the abdomen and pelvis were performed following the IV administration of 94 cc of Optiray, A dose lowering technique was utilized adhering to the principles of ALARA. COMPARISON STUDY: CT abdomen and pelvis 02/07/2022 FINDINGS: Cardiomegaly. Left subclavian pacer. Trace pleural effusions. Progressively worsened groundglass opacities of the basal left lower lobe. Mild subsegmental right basilar atelectasis. No pneumatosis or pneumoperitoneum. The study is degraded by respiratory motion artifact and upper extremity positioning. The spleen and adrenal glands are unremarkable. Splenic calcifications compatible with chronic pancreatitis. There are a few scattered cystic foci of the pancreas measuring up to 9 mm within the pancreatic tail suggestive of sidebranch IPMN's. Cholecystectomy with likely postsurgical pneumobilia. The liver is otherwise unremarkable. Patency of the hepatic and portal veins. 1.2 cm left renal cyst. No hydronephrosis. The visualized urinary bladder is unremarkable. Atherosclerosis of the aorta without aneurysm. Borderline enlarged iliac chain lymph nodes measure up to 10 mm on the right, mildly increased in size from the prior study. No bowel obstruction. Moderate circumferential wall thickening of the inferior rectum and anorectal junction. Upstream gaseous distention of the rectum. Colonic diverticulosis without acute diverticulitis identified. Mild generalized body wall and mesenteric edema. The appendix is reportedly surgically absent. Healing subacute anterior rib fractures. T12 chronic compression deformity with kyphoplasty. Unchanged severe T11 compression deformity. Left hip total joint arthroplasty. IMPRESSION: 1. Moderate wall thickening of the inferior rectum and anorectal junction is suspicious for a nonspecific proctitis. 2. No bowel obstruction or pneumoperitoneum. 3. Trace pleural effusions with groundglass opacities of the basal left lower lobe suggestive of atelectasis versus pneumonitis. 4. Colonic diverticulosis. 5. Additional findings as above. ACT 112: Negative or not required by law. The above report was generated using voice recognition software. It may contain grammatical, syntax or spelling errors. Electronically signed by: Raj Kuo M.D. 03/01/2022 12:41 PM Chest X-Ray 03/04/22 13:21 XR chest 2V PA/lateral CLINICAL HISTORY: f/u n/v, opacity TECHNIQUE: 2 views of the chest were obtained. Comparison: Comparison is made to chest radiograph 03/01/2022 FINDINGS: Dual lead pacemaker is seen. Calcified aortic knob is seen. The lungs are clear. Trace blunting of the bilateral costophrenic angles are seen. There is significant anterior wedge deformity in the thoracic spine. IMPRESSION: Possible trace bilateral pleural effusions versus scarring. No airspace opacities are seen. ACT 112: Negative or not required by law. Electronically signed by: Roni Herring M.D. 03/04/2022 3:31 PM KUB X-Ray 03/04/22 13:21 KUB CLINICAL HISTORY: f/u constipation COMPARISON STUDY: CT of the abdomen and pelvis March 01, 2022. FINDINGS: Left hip arthroplasty, pacer/AICD lead, T12 kyphoplasty and degenerative changes within lumbar spine are incidentally noted. There is no evidence for a bowel obstruction. Mild to moderate amount of stool within the sigmoid colon and rectum is present. IMPRESSION: 1. No evidence for a bowel obstruction. 2. Snup-mb-fkiyyyle amount stool within the sigmoid colon and rectum. ACT 112: Negative or not required by law. Electronically signed by: Kendall Kirby M.D. 03/04/2022 3:27 PM KUB X-Ray 03/05/22 14:54 XR KUB/Abdomen 1 view CLINICAL HISTORY: n/v TECHNIQUE: 1 view of the abdomen was obtained. Comparison: Comparison is made to abdomen radiographs 03/04/2022 FINDINGS: Lung bases are unremarkable. Degenerative changes are seen in the visualized skeleton. Left hip prosthesis is seen. The bowel gas pattern is nonobstructive. Small stool burden is seen. IMPRESSION: Nonobstructive bowel gas pattern. ACT 112: Negative or not required by law. Electronically signed by: Roni Herring M.D. 03/05/2022 3:58 PM Gastric Emptying Nuclear Medicine 03/07/22 08:00 NM gastric emptying study CLINICAL HISTORY: continued n/v, ?gastroparesis TECHNIQUE: The patient was given food with 1 mCi of Tc 99m labeled sulfur colloid. Sequential images centered on the stomach were obtained immediately following the meal, then at 1, 2, and 4 hours following the meal. All imaging was performed in the upright position. This is a solid phase study. COMPARISON: None. FINDINGS: The geometric mean remaining tracer was 72%, 54, and 7 %at 1 hour, 2 hours, and 4 hours respectively. The normal values for gastric retention are 30- 90%, 30-60%, and 10% respectively. IMPRESSION: Normal gastric emptying study without evidence of gastroparesis or rapid gastric emptying ACT 112: Negative or not required by law. Electronically signed by: Roni Herring M.D. 03/07/2022 1:02 PM Hospital Course (1) UTI (urinary tract infection): admitted with intractable n/v, underlying etiology was unclear initial urine collected on admission without concerns for infection, however possible with constipation ?retention contributing to current uti patient reported increased urinary frequency but no burning Urine cx sent previously, now with Klebsiella, gamma strep (no stones on CTAP on admission, however does note calcium oxalate on sample, ?passed stone) placing on keflex, however Lyme IgG +, IgM negative and incomplete treatment of possible lyme last fall with negative testing and decision to send home on augmentin BID x 2 week to complete course at discharge Also sent for PO zofran to use as needed for nausea as a primary concern for patient on admission for nausea at home without medication to use Improvement in symptoms with tx of UTI and patient felt ready for discharge home Anecdotally, her FRANSISCO brought in for back pain night prior and being treated for Lyme (2) Lyme borreliosis: prior suspection in the fall, however incomplete course and negative testing Lyme testing ordered give no other cause and rash to chest to r/o other causes --> IgG +, IgM negative decision to tx augmentin x 2 weeks to cover for this and UTI as above at discharge (3) Intractable vomiting with nausea: RESOLVED Unclear underlying cause initially , waldo given negative ua on admit Lipase 22 (of note, prior values seem upper normal range, recent checks all low, ?creon) In 2018, pancreatitis with R sided abd/back pain related to c.diff colitis vs duodenal ulcers--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 Lomotil available daily, additional prn PPI daily, famotidine Zofran prn GI consulted - Rec adding Metamucil to help bulk stools given chronic issues with constipation/need for disimpaction in the past Added Questran but doubt effective, patient refused additional dosing and remained stable outpt f/u for c-scope if continued issues Given 500cc NSS for diarrheal losses - IV went bad, refusing additional placement and increased oral tolerance Changed back to pyridostigmine 30mg TID (taking at home) as increased dose could have caused worsening diarrhea 14 episodes diarrhea at one point in a day during inpatient stay, repeat testing stool PCR negative-- could have been from increased dose pyridostigmine as not able to tolerate higher doses previously Lomotil prn Gastric emptying study benign as performed to r/o any underlying gastroparesis earlier in hospital stay Continue bowel regimen to assist with daily movements but if having at least one BM daily discussed holding miralax/colace but rec at least daily BM to prevent constipation (4) Papular rash: ? medication induced given increase pyridostigmine to 60mg TID on admission (getting 30mg TID at home) Triamcinolone ordered and rash almost resolved with use and back to usual pyridostigmine dose CRP/ESR wnl Also could have been related to a leukocytoclastic reaction related to possible + Lyme testing Augmentin at d/c as above (5) Swallowing difficulty: Reportedly has difficulty swallowing, chokes on water. Not new. Speech saw -- easy to chew diet, aspiration, reflux precautions Meds adjusted for myasthenia and reported no issues with swallowing -- monitored, no issues on usual home dose (6) GERD (gastroesophageal reflux disease): Continued Pepcid and PPI. tx for n/v/d as above, uti/lyme (7) Myasthenia gravis, AChR antibody positive: On 60mg tid on admission however was only taking 30mg TID at home Neuro consulted, changed back to 30mg TID Seems to be stable at this time on 30mg dose outpt f/u neurology (8) CKD (chronic kidney disease) stage 3, GFR 30-59 ml/min: Baseline creatinine 0.81.1; at baseline on admission. Cr stable .085 avoided nephrotoxins/renal dose meds when able (9) Cardiomyopathy: History of, s/p ICD with improvement in EF from 25% to 60%. - No evidence today of pulmonary edema or JVD. (10) HLD (hyperlipidemia): Continued statin. (11) Hypothyroidism: TSH 1.506 Continued levothyroxine home dose (12) HTN (hypertension), benign: Held lisinopril for poor PO intake and tx UTI with improvement in BP and appetite Resume home lisinopril and continued at discharge consider decreased dose in follow up pending BP check in office (13) Mixed stress and urge incontinence: - Continued oxybutynin. UTI as above (14) Diabetes mellitus, type 2: No current home meds. A1c 6 BSGs acceptable on regular diet f/u outpt monitoring (15) Macrocytosis: not new B12/folate without deficiency TSH wnl will check peripheral smear as appears longstanding -- no evidence for MDS ?medication related/infection w/ uti? can f/u outpatient with PCP if still elevated with tx of infectious etiologies as above consider referral to hematology outpatient (16) Constipation: working on bowel regimen as above hx c.diff colitis 2018 C. DIFF NEGATIVE 03/04, repeat negative 03/06 dialy BMs, no further diarrhea bowel regimen as needed at discharge if continued issues f/u gi for outpatient c-scope if warranted DVT proph with SCDs, Heparin SQ while inpatient Discharged home with family and to have [facility] Total Time Total Time Spent Total Time Spent (In Minutes): 45 Discharge Plan Discharge Items Patient Disposition: Home - Home Health Services Reason For Visit: VOMITING, ALLERGIC REACTION Discharge Diagnosis: Intractable Nausea, Vomiting, UTI, possible Lyme Goals: You have been hospitalized for an acute medical problem. During your stay at [facility], we have made an effort to correct the problem that brought you to the hospital while keeping you as comfortable as possible. Medications were used to bring your condition under control and your discharge instructions will include directions for any medications you should take after leaving the hospital. Please make sure you see your Primary Care Provider as part of your follow up plan. Activity: As commented below Activity Comment: advance as tolerated Non-emergency contact: Primary Care Provider, Channel Business Manager and Neurologist Call non-emergency contact if: you have any medication questions, your symptoms worsen and you have a fever Follow-up/Referrals: Adriano Castellanos MD [Primary Care Provider] - 03/13/22 1:00 pm Diet: Carb Consistent or DM2 and Heart Healthy Diet Texture: Easy to Chew Addtl Attending Provider Instructions: You have been hospitalized for intractable nausea and vomiting. Imaging did not show any infectious causes and this could be related to medications used for your myasthenia as well as constipation causing nausea and then vomiting. GI evaluated while in the hospital and recommends a daily bowel regimen with miralax TWICE daily, Colace TWICE daily and Metamucil 1tbsp daily (take with full glass of water). As discussed, you should take the metamucil 1tbsp daily with a glass of water to help bulk your stools and can take the stool softeners daily as needed to have a bowel movement. If having bowel movements daily can hold off on additional doses. I spoke with Neurology while inpatient given you have had symptoms of n/v, diarrhea and this could be due to the pyridostigmine. You had been getting 60mg three times daily but had been taking 30mg daily at home and have been switched back to your usual dose with stable symptoms from your myasthenia. As we have talked about with diarrhea, you should only take the diphenoxylate- atropine ONLY IF NEEDED for excessive diarrhea. We ended up checking a repeat urine culture and this was positive for UTI and you have been treated with AUGMENTIN TWICE DAILY FOR TWO WEEKS to cover for both UTI and possible LYme. You did get some doxycycline last year for a suspicion and it was negative upon review of the labs however is now positive and the Augmentin will cover. I also sent a prescription for zofran to take as needed for nausea. You should follow up with your PCP in the next 7-10 days to monitor your progress. Please follow up with GI in the future if continued symptoms to consider a colonoscopy however suspect symptoms more related to a urinary infection. Please return to the ER with any fever/chills, inability to keep up with oral hydration or for any other symptoms concerning for you. Pending Studies at Discharge: No Stand-Alone Forms: [facility] Medications and DC Order Prescriptions: New ondansetron 4 mg tablet,disintegrating 4 mg PO Q6H PRN (Reason: nausea and vomiting) Qty: 14 RF: 0 Saccharomyces boulardii [Florastor] 250 mg capsule 250 mg PO BID Qty: 20 RF: 0 diphenoxylate-atropine 2.5-0.025 mg Tablet 1 tab PO BID PRN (Reason: diarrhea) Qty: 7 RF: 0 polyethylene glycol 3350 [Miralax] 17 gram Powder In Packet 17 g PO BID PRN (Reason: constipation) Qty: 14 RF: 0 triamcinolone acetonide 0.1 % Cream 1 applic EXT TID Qty: 15 RF: 0 amoxicillin-pot clavulanate 875-125 mg tablet 1 tab PO BID 14 Days Qty: 28 RF: 0 Continued cyanocobalamin (vitamin B-12) [Vitamin B-12] 1,000 mcg tablet 500 mcg PO QAM RF: 0 atorvastatin 40 mg tablet 40 mg PO HS Qty: 90 RF: 3 pantoprazole 40 mg tablet,delayed release (DR/EC) 40 mg PO QAM Qty: 30 RF: 11 oxybutynin chloride 5 mg tablet extended release 24hr 5 mg PO HS Qty: 30 RF: 11 gabapentin 300 mg capsule 600 mg PO HS Qty: 60 RF: 5 ascorbic acid (vitamin C) 500 mg tablet 500 mg PO QAM RF: 0 Centrum Silver Women 8 mg iron-400 mcg-300 mcg tablet 1 tab PO QAM RF: 0 sennosides-docusate sodium [Senokot-S] 8.6-50 mg tablet 1 tab PO BID Qty: 60 RF: 6 cholecalciferol (vitamin D3) [Vitamin D3] 2,000 unit Tablet 2,000 unit PO QAM RF: 0 vitamin A 2,400 mcg capsule 2,400 mcg PO QAM RF: 0 vitamin E 100 unit capsule 100 unit PO QAM RF: 0 acetaminophen 500 mg tablet 1,000 mg PO TID PRN (Reason: Pain) RF: 0 glucosamine-chondroitin [Osteo Bi-Flex] 250-200 mg Tablet 1 tab PO QAM RF: 0 diphenhydramine-acetaminophen [Tylenol PM Extra Strength] 25-500 mg Tablet 2 tab PO HS RF: 0 alendronate 70 mg tablet 70 mg PO WK RF: 0 famotidine 10 mg Tablet 10 mg PO QAM RF: 0 levothyroxine 137 mcg tablet 137 mcg PO QAM RF: 0 lisinopril 10 mg tablet 10 mg PO QAM RF: 0 Changed pyridostigmine bromide [Mestinon] 60 mg tablet 30 mg PO TID 90 Days Qty: 270 RF: 1 Discharge Orders: Discharge Order (Routine); Ordered 03/08/22 Ordered By: Emili Stewart Admission Data Admit Date/Time: 03/03/22 20:32 Attending Provider: Carolyne Sorto Admit Provider: Chaparro Braxton Primary Care Provider: Adriano Castellanos Other Providers: Eleonora Doran ; Frank Park ; [facility] ; Andrew Light Other Interventions: Discharge Summary Assessment (RN) Last Done: 03/08/22 09:55 Supervising Physician Co-Signing Physician Notes PA Supervision Note: I personally saw and examined the patient. I verified all cisneros points and agree with THONY Stewart with the following exceptions and/or additions: S-Pt feeling well, eating a cheeseburger when I saw her. No concerns O- Vitals reviewed Gen: [AAOx3, NAD] HEENT: [anicteric sclerae, EOMI] Pulm: [breathing unlabored] Abd: [+BS soft NT ND no masses or hernias] Skin: [no rashes, warm/dry] Neuro: [full strength throughout] A/P-Pt is here with n/v, constipation, but also diarrhea. Improved, eating and drinking, treating UTI. STbale for dc to home Coding Level of Care Code D/C DAY MANAGEMENT >30 MINS Diagnoses UTI (urinary tract infection) N39.0 Intractable vomiting with nausea R11.2 Papular rash R21 Swallowing difficulty R13.10 Dysphagia type: unspecified GERD (gastroesophageal reflux disease) K21.9 Myasthenia gravis, AChR antibody positive G70.00 CKD (chronic kidney disease) stage 3, GFR 30-59 ml/min N18.3 Cardiomyopathy I42.0 Cardiomyopathy type: dilated HLD (hyperlipidemia) E78.5 Hypothyroidism E03.9 HTN (hypertension), benign I10 Mixed stress and urge incontinence N39.46 Diabetes mellitus, type 2 E11.9 Macrocytosis D75.89 Constipation K59.00 Lyme borreliosis A69.20
[2022-03-08 10:15] LABS: Alanine Aminotransferase 13 U/L (7-52); Albumin Globulin Ratio 1.3 (0.9-2); Albumin Level 3.5 gm/dl (3.4-5.0); Alkaline Phosphatase 56 U/L (34-104); Anion Gap 3 (3-11); BUN Creatinine Ratio 15.3 (10-20); Bilirubin,Total 0.6 mg/dl (0.2-1.0); Blood Urea Nitrogen 13 mg/dl (6-23); Calcium 9.3 mg/dl (8.5-10.1); Carbon Dioxide 35 mmol/L (21-32); Chloride 102 mmol/L (98-107); Est GFR (African American) 70.4 ml/min; Est GFR (Non-African American) 60.7 ml/min; Globulin 2.6 gm/dl (2.5-4.0); Glucose 108 mg/dl (70-99(Fasting)); Sodium 140 mmol/L (136-145); Total Protein 6.1 gm/dl (6.0-8.3)
[2022-03-08] MEDS: CHOLESTYRAMINE LIGHT 4 GM PKT PO SCH (10:41)
[2022-03-08 11:23] LABS: Potassium 3.8 mmol/L (3.5-5.1)
== END 2022-03-08 14:39 | disposition home health service (06) | DRG 392 ==
LOC: ED 10:04 → 3N 10:04 → SUATTDRO 17:50 → 3N 20:35 → SUATTDRO 03-03 20:32

== ENCOUNTER 2022-04-18 10:11 | Observation (INO) ==
[2022-04-18] MEDS ORDERED: SODIUM CHLORIDE 0.9% 500 ML IV SCH (10:30)
--- NOTE | 2022-04-18 10:30 | Emergency Department Note ---
Impression & Plan Supracondylar fracture of humerus ADMIT ED Provider Note HPI: The patient is an 87-year-old female with history of osteoporosis, paroxysmal atrial fibrillation, nonischemic cardiomyopathy with reduced ejection fraction, status post ICD, who presents the emergency department after a fall. Patient states that she was at home and she was trying to transfer into her lounge chair from her walker, she states that she lost her balance and fell onto her right arm. Patient does not know if she hit her head or not. On arrival here to the ED the patient is frail-appearing, she is unable to move her right arm secondary to pain from her shoulder down to her wrist. Patient is alert and answers my questions appropriately. ROS: -MSK: Right arm pain/deformity status post fall *10 point review systems was conducted and is otherwise negative unless stated above *Outpatient medications and allergy history reviewed PE: General: Frail-appearing, alert, NAD HEENT: Normocephalic, atraumatic Eyes: Extraocular eye movement is intact, no scleral erythema Pulmonary: Clear to auscultation bilaterally, no wheezing Cardio: Regular rate and rhythm GI: Abdomen is soft, nontender : No suprapubic tenderness MSK: Moderate swelling with limited mobility at the right elbow, no malformation of the proximal humerus, patient maintains motor and sensory function distally i n the right hand, palpable radial pulse in the R UE Skin: No evidence of rash Neuro: Alert, no focal deficits Psychiatric: Cooperative hall monitor: - An order was placed for continuous cardiac monitoring - Patient was noted to be in paced rhythm with rate of 90 EKG: Rate: 91 Rhythm: Paced rhythm Intervals: Within normal limits ST changes: No ST elevation Time: 1046 Medical Decision Making: Patient presented to the emergency department after mechanical fall, she is alert and oriented on arrival however she is frail-appearing, she has multiple comorbidities. CT imaging of the head was obtained that does not show any evidence of any intracranial abnormality, x-ray imaging of the chest does not show any evidence of pneumothorax or acute pathology, x-ray imaging of the right upper extremity shows evidence of a supracondylar fracture of the right distal humerus. This would explain the patient's pain. Her lab work is otherwise without critical findings. Hemoglobin is stable, no acute kidney injury. I did discuss this with the patient and she tells me that she does not want surgery under any circumstances that she has had difficulty tolerating surgery in the past and given her age and comorbidities she is concerned about being a high risk patient. I did discuss this with the patient and her family at the bedside and I do believe that she would be high risk for surgery. I did discuss case with orthopedics, Dr. Morrow, who is in agreement that the patient does have a surgical fracture and they are offering the patient surgery if she would choose, patient again declines. I did discuss all of the above imaging and lab work findings with the patient and her 2 daughters at the bedside as well as her at the bedside, at this time they are expressing concerns because the patient ambulates normally with a walker which she will no longer be able to do, she will also have some difficulty with her activities of daily living without use of her right arm. I am in agreement that the patient is not safe to go home.case management was consulted in regards to possibly getting the patient directly to a rehabilitation facility and this is not considered to be possible at the current time. Therefore the case was discussed with the on-call hospitalist, Dr. Park, who did arrange for admission of the patient for PT/OT consultation and likely eventual placement in a rehabilitation facility. Patient was in agreement to this plan as was her family at the bedside and the patient was admitted in stable condition for further care Diagnosis: 1. Supracondylar fracture with displacement of the right distal humerus 2. Mechanical fall 3. Ambulatory dysfunction 4. History of nonischemic cardiomyopathy with reduced ejection fraction status post ICD placement 5. Osteoporosis Disposition: Admission Wisam Hollins DO Emergency Medicine Past Med/Surg History Medical History (Updated 04/18/22 @ 14:25 by Wisam Hollins DO) Acute back pain Acute UTI Anemia Cardiac defibrillator in place Cardiomyopathy Carotid artery stenosis Chronic pancreatitis CKD (chronic kidney disease) stage 3, GFR 30-59 ml/min Colitis Degenerative joint disease (DJD) of hip Diabetes mellitus, type 2 Diabetic nephropathy Diabetic peripheral neuropathy Diverticulitis Diverticulosis of colon Duodenal ulcer Fall Fall GERD (gastroesophageal reflux disease) Hypercholesterolemia IBS (irritable bowel syndrome) ICD (implantable cardioverter-defibrillator) battery depletion Insomnia Lumbar canal stenosis Lumbar spondylosis Nonischemic cardiomyopathy Osteoarthritis Presence of cardiac pacemaker Pulmonary nodule Rib fracture 09/17/18 R/T FALL. D/C'D TO [facility]. Scaphoid fracture of wrist Vitamin D deficiency, unspecified Surgical History History of cardiac cath PER PT, 5-10 YEARS AGO AT [facility] - REASON? - NO STENTS/ANGIOPLASTY History of cholecystectomy History of colonoscopy History of ERCP w/ sphincterotomy & CBD stent History of esophagogastroduodenoscopy (EGD) History of vertebroplasty T12 S/P appendectomy S/P hysterectomy S/P ICD (internal cardiac defibrillator) procedure Biventricular AICD placed in 2007, Generator Change-out 02/15/2020 -- now has a e994 MRI POSTAL CARRIER-D Bi-V AICD. S/P kyphoplasty S/P partial colectomy S/P rotator cuff surgery Family History Son Diabetes Sister Breast cancer Denies family history of Ovarian cancer Prostate cancer Hearing loss Coronary heart disease No family history of adverse response to anesthesia No family history of bleeding disorder Heart disease Allergies Myocardial infarction Colorectal cancer Cancer Hypertension Stroke Asthma Social History Smoking Status: Never smoker Second Hand Exposure: No; Hx Alcohol Use: No Hx Substance Use: No Preferred Language: Nepali Communication Ability: Effective Visual Impairment: No Limitations Hearing Ability: Normal Senior Business Process Analyst Required: No Beliefs That Will Affect Care: None marital status: Current Living Situation: Spouse current occupational status: retired current occupation: retired from career with [email or web address] How many Children do You have: 6 Feels Safe at Home: Yes Childhood Exposure to Second-Hand Smoke: No caffeine: Yes Dental Care, Regularly: No Physical Activity Frequency: Does not Exercise Seatbelt Use: always Sunscreen Use: No Assistive Devices: Cane, Denture - Upper, Denture - Lower, Glasses and Walker Allergies Allergies Allergy/AdvReac Type Severity Reaction Status Date / Time celecoxib Allergy Severe SX OF Verified 04/18/22 11:39 STROKE, FACIAL NUMBNESS, UNABLE TO SPEAK fesoterodine [From Toviaz] Allergy Unknown Unknown Verified 04/18/22 11:39 solifenacin [From Vesicare] Allergy Unknown Unknown Verified 04/18/22 11:39 morphine AdvReac Intermediate Confusion Verified 04/18/22 11:39 ciprofloxacin AdvReac Mild UPSET Verified 04/18/22 11:39 STOMACH metronidazole AdvReac Mild N/V Verified 04/18/22 11:39 Home Meds Home Medications Medication Instructions Recorded Confirmed cholecalciferol (vitamin D3) 50 2,000 unit PO QAM 08/05/18 04/18/22 mcg (2,000 unit) tablet (Vitamin D3) ascorbic acid (vitamin C) 500 mg 500 mg PO QAM 02/26/19 04/18/22 tablet multivit with 1 tab PO QAM 08/21/20 04/18/22 xzkmqjbx-bqlj-EW-lutein 8 mg iron-400 mcg-300 mcg tablet (Centrum Silver Women) acetaminophen 500 mg tablet 1,000 mg PO TID PRN Pain 01/15/21 04/18/22 vitamin A 2,400 mcg capsule 2,400 mcg PO QAM 01/23/21 04/18/22 cyanocobalamin (vitamin B-12) 500 mcg PO QAM 03/26/21 04/18/22 1,000 mcg tablet (Vitamin B-12) glucosamine-chondroitin 250 mg-200 1 tab PO QAM 05/13/21 04/18/22 mg tablet (Osteo Bi-Flex) diphenhydramine 25 2 tab PO HS 12/15/21 04/18/22 mg-acetaminophen 500 mg tablet (Tylenol PM Extra Strength) famotidine 10 mg tablet 10 mg PO QAM 03/01/22 04/18/22 levothyroxine 137 mcg tablet 137 mcg PO QAM 03/01/22 04/18/22 Previous Rx's Medication Instructions Recorded pantoprazole 40 mg tablet,delayed 40 mg PO QAM #30 tabs 05/07/21 release oxybutynin chloride 5 mg 5 mg PO HS #30 tabs 10/01/21 tablet,extended release 24 hr gabapentin 300 mg capsule 600 mg PO HS #60 caps 11/19/21 sennosides 8.6 mg-docusate sodium 1 tab PO BID #60 tabs 02/27/22 50 mg tablet (Senokot-S) ondansetron 4 mg disintegrating 4 mg PO Q6H PRN nausea and 03/01/22 tablet vomiting #14 tabs diphenoxylate-atropine 2.5 1 tab PO BID PRN diarrhea #7 tabs 03/08/22 mg-0.025 mg tablet polyethylene glycol 3350 17 gram 17 g PO BID PRN constipation #14 ea 03/08/22 oral powder packet (Miralax) pyridostigmine bromide 60 mg 30 mg PO TID 90 days #270 tabs 03/08/22 tablet (Mestinon) blood sugar diagnostic (OneTouch #300 ea 04/02/22 Ultra Test) alendronate 70 mg tablet 70 mg PO WK #12 tabs 04/16/22 Results & Data (ED) Vital Signs Vital Signs - 24 hr 04/18/22 10:20 04/18/22 10:50 04/18/22 11:59 Temperature 36.5 C Temperature Source Oral Pulse Rate 92 H Pulse Rate [Apical] 80 Respiratory Rate 18 18 Respiratory Effort / Characteristics Non-Labored Non-Labored Spontaneous Respiratory Depth Normal Normal Blood Pressure 122/78 Blood Pressure [Left Arm] 109/63 Blood Pressure Mean 92 Blood Pressure Mean [Left Arm] 78 Blood Pressure Position Lying Blood Pressure Position [Left Arm] Lying Pulse Oximetry 99 94 100 Oxygen Delivery Method Nasal Cannula Nasal Cannula Nasal Cannula Oxygen Flow Rate 4 2 2 Sepsis Recent Fever Within 48 Hours No Sepsis New/Unexplained Change in Mental Status No Sepsis Action Taken by Nursing No Action Required 04/18/22 13:44 Temperature Temperature Source Pulse Rate Pulse Rate [Apical] 75 Respiratory Rate 16 Respiratory Effort / Characteristics Non-Labored Respiratory Depth Normal Blood Pressure Blood Pressure [Left Arm] 105/71 Blood Pressure Mean Blood Pressure Mean [Left Arm] 82 Blood Pressure Position Blood Pressure Position [Left Arm] Lying Pulse Oximetry 100 Oxygen Delivery Method Nasal Cannula Oxygen Flow Rate 2 Sepsis Recent Fever Within 48 Hours Sepsis New/Unexplained Change in Mental Status Sepsis Action Taken by Nursing Laboratory Data Result diagrams: 04/18/22 11:00 04/18/22 11:00 Lab Results 04/18/22 04/18/22 Range/Units 11:00 11:00 WBC 7.36 (4.8-10.8) K/ul RBC 4.52 (3.93-5.22) M/uL Hgb 14.8 (12.0-16.0) g/dl Hct 46.8 H (34.1-44.9) % MCV 103.5 H (80.0-100.0) fL MCH 32.7 (25.0-34.0) pg MCHC 31.6 L (32.0-36.0) g/dL RDW Std Deviation 51.8 H (36.4-46.3) fL RDW Coeff of Radha 13.4 (11.5-14.5) % Plt Count 174 (130-400) K/uL MPV 10.2 (9.4-12.3) fL Immature Gran % (Auto) 0.3 % Neut % (Auto) 79.5 % Lymph % (Auto) 10.6 % [place] % (Auto) 8.0 % Eos % (Auto) 1.2 % Baso % (Auto) 0.4 % Neut # (Auto) 5.85 (1.4-6.5) K/uL Lymph # (Auto) 0.78 L (1.2-3.4) K/uL [place] # (Auto) 0.59 (0.24-0.82) K/uL Eos # (Auto) 0.09 (0-0.50) K/uL Baso # (Auto) 0.03 (0-0.2) K/uL Immature Gran # (Auto) 0.02 (0.00-0.02) K/uL Sodium 139 (136-145) mmol/L Potassium 3.4 L (3.5-5.1) mmol/L Chloride 100 (98-107) mmol/L Carbon Dioxide 34 H (21-32) mmol/L Anion Gap 5 (3-11) BUN 17 (6-23) mg/dl Creatinine 0.93 (0.6-1.2) mg/dl Est Cr Clr Drug Dosing 33.0 ml/min Est GFR ( Amer) 63.2 ml/min Est GFR (Non-Af Amer) 54.5 ml/min BUN/Creatinine Ratio 18.3 (10-20) Glucose 119 H (70-99(Fasting)) mg/dl Calcium 9.3 (8.5-10.1) mg/dl Total Bilirubin 0.9 (0.2-1.0) mg/dl AST 37 (13-39) U/L ALT 27 (7-52) U/L Alkaline Phosphatase 67 (34-104) U/L Total Protein 7.0 (6.0-8.3) gm/dl Albumin 4.0 (3.4-5.0) gm/dl Globulin 3.0 (2.5-4.0) gm/dl Albumin/Globulin Ratio 1.3 (0.9-2) Administered Medications Discontinued Medications Acetaminophen (Acetaminophen 1000 Mg/100 Ml Iv) 1,000 mg IV ONCE ONE Stop: 04/18/22 13:47 Last Admin: 04/18/22 13:50 Dose: 1,000 mg Documented By: ARIELLA Sodium Chloride (Nss) 500 mls @ 999 mls/hr IV .Q31M KIM Stop: 04/18/22 11:00 Last Infusion: 04/18/22 11:40 Dose: 0 mls/hr Documented By: Admin: 04/18/22 11:08 Dose: 999 mls/hr Documented By: ARIELLA Imaging Data Radiologist's Impression: Chest X-Ray 04/18/22 10:27 XR chest 1V not portable CLINICAL HISTORY: fall. Evaluate cardiopulmonary status COMPARISON STUDY: 03/04/2022 TECHNIQUE: 1 view of the chest FINDINGS: Single frontal view of the chest demonstrates the heart size to be within normal limits status post previous ICD pacer placement. The lungs are clear of alveolar opacities. There is no evidence for pleural effusion. There is no evidence for vascular congestion. There is no acute osseous pathology. Osteoarthritis and osteonecrosis is seen involving both shoulder joints, right greater than left. IMPRESSION: 1. No acute cardiopulmonary disease. ACT 112: Negative or not required by law. Electronically signed by: Juan Antonio Blanchard M.D. 04/18/2022 1:39 PM Forearm X-Ray 04/18/22 10:27 XR forearm RT 2V HISTORY: 87 years-old Female fall acute pain of the right upper extremity status post fall COMPARISON: Right humerus radiographs of same day TECHNIQUE: 2 views of the right forearm FINDINGS: There is an acute displaced and angulated supracondylar fracture of the distal radial metaphysis demonstrating approximately 2 cm volar displacement with approximately 90 degrees angulation. Moderate soft tissue swelling of the distal upper arm and elbow with associated joint effusion/hemarthrosis. Demineralized appearance of the bones. Indeterminate 7 mm corticated ossifications are noted along the medial margin of the elbow. No dislocation identified. The proximal radius appears intact. ORIF hardware of the distal radius. Vertically oriented lucency involving the lateral aspect of the distal radius is favored be artifactual. Multifocal osteoarthritis. Subcentimeter bone fragment is noted along the posterior elbow adjacent to the olecranon. IMPRESSION: 1. Acute, displaced and angulated supracondylar distal radial fracture with large joint effusion/hemarthrosis of the elbow. 2. Subcentimeter bone fragment of the posterior elbow is noted adjacent to the olecranon. This may be secondary to the distal humeral fracture or alternatively may represent a subtle olecranon fracture. 3. ORIF hardware of the distal radius. Vertically oriented distal radial lucency is likely artifactual. If the patient also has acute right-sided wrist pain, dedicated wrist radiographs may be considered. ACT 112: Negative or not required by law. The above report was generated using voice recognition software. It may contain grammatical, syntax or spelling errors. Electronically signed by: Raj Kuo M.D. 04/18/2022 1:45 PM Humerus X-Ray 04/18/22 10:27 XR humerus RT 2V CLINICAL HISTORY: fall COMPARISON: Right humerus radiographs November 27, 2019. FINDINGS: No acute proximal right humeral fracture is noted. There is severe osteoarthritis of the right glenohumeral joint. Note is made of an acute right humeral supracondylar fracture. Fracture is displaced 1.6 cm. Fracture is angulated. Right forearm radiographs will be reported separately. IMPRESSION: Acute displaced angulated right humeral supracondylar fracture, as described above. ACT 112: Negative or not required by law. Electronically signed by: Kendall Kirby M.D. 04/18/2022 1:[address] 04/18/22 10:29 CT head/brain wo con CLINICAL HISTORY: 87 years-old Female with Trauma. Acute head trauma TECHNIQUE: Multiple axial CT images of the head were obtained without contrast. A dose lowering technique was utilized adhering to the principles of ALARA. CT DOSE: 614.27 mGy.cm COMPARISON: 10/01/2019. FINDINGS: No acute intracranial hemorrhage, midline shift, intracranial mass, hydrocephalus, territorial ischemia or abnormal extra-axial collection. Calcifications of the lentiform and dentate nuclei redemonstrated. Age-related involutional changes. White matter hypodensities suggestive of advanced chronic microvascular ischemic disease. Streak artifact from the patient's earrings limits the study. The calvarium is intact. Prior bilateral lens repair. The paranasal sinuses, mastoid air cells, and middle ear cavities are clear. IMPRESSION: No acute intracranial abnormality or calvarial fracture. ACT 112: Negative or not required by law. The above report was generated using voice recognition software. It may contain grammatical, syntax or spelling errors. Electronically signed by: Raj Kuo M.D. 04/18/2022 12:01 PM Hip/Pelvis X-Ray 04/18/22 10:30 XR hip BÁRBARA 2v w pelvis CLINICAL HISTORY: fall. Pain. COMPARISON STUDY: No previous studies for comparison. TECHNIQUE: AP pelvis and bilateral views FINDINGS: Bones: The bones are osteopenic. There is no evidence for an acute fracture or dislocation. There is no lytic or blastic lesion. Joints: On the left side, the patient is status post total hip replacement with noncemented components. The prosthetic components are in anatomic alignment. The right side, there is mild narrowing hip joint space superiorly with minimal subchondral sclerosis and marginal osteophyte formation. The remaining visualized bones of the pelvis are intact. The bones are in anatomic alignment. Lumbar spine: The lower lumbar spine was included on AP pelvis and demonstrates moderate to marked degenerative change. Soft tissues: There is no focal soft tissue abnormality. There is no radiopaque foreign body. IMPRESSION: 1. No acute osseous pathology. 2. Osteopenia with osteoarthritis of the right hip. 3. Stable left total hip replacement. 4. Degenerative changes of lumbar spine. ACT 112: Negative or not required by law. Electronically signed by: Juan Antonio Blanchard M.D. 04/18/2022 1:41 PM Discharge Plan Visit Data Chief Complaint: Fall Stated Complaint: FALL, R ARM PAIN ED Provider: Wisam Hollins Discharge Problem: Supracondylar fracture of humerus Patient Disposition: Home - Self-Care Forms Stand Alone Forms: [facility], Virtual Emergency Department, Important Visit Information Prescriptions Prescriptions: No Action cyanocobalamin (vitamin B-12) [Vitamin B-12] 1,000 mcg tablet 500 mcg PO QAM pantoprazole 40 mg tablet,delayed release (DR/EC) 40 mg PO QAM Qty: 30 11RF oxybutynin chloride 5 mg tablet extended release 24hr 5 mg PO HS Qty: 30 11RF gabapentin 300 mg capsule 600 mg PO HS Qty: 60 5RF (DME) OneTouch Ultra Test Strip See Rx Instructions .Route Qty: 300 3RF Rx Instructions: TEST THREE TIMES DAILY. DX: E11.9 alendronate 70 mg tablet 70 mg PO WK Qty: 12 0RF Rx Instructions: 70 mg PO once weekly; Mon ascorbic acid (vitamin C) 500 mg tablet 500 mg PO QAM Centrum Silver Women 8 mg iron-400 mcg-300 mcg tablet 1 tab PO QAM sennosides-docusate sodium [Senokot-S] 8.6-50 mg tablet 1 tab PO BID Qty: 60 6RF cholecalciferol (vitamin D3) [Vitamin D3] 2,000 unit Tablet 2,000 unit PO QAM vitamin A 2,400 mcg capsule 2,400 mcg PO QAM acetaminophen 500 mg tablet 1,000 mg PO TID PRN (Reason: Pain) glucosamine-chondroitin [Osteo Bi-Flex] 250-200 mg Tablet 1 tab PO QAM diphenhydramine-acetaminophen [Tylenol PM Extra Strength] 25-500 mg Tablet 2 tab PO HS famotidine 10 mg Tablet 10 mg PO QAM levothyroxine 137 mcg tablet 137 mcg PO QAM ondansetron 4 mg tablet,disintegrating 4 mg PO Q6H PRN (Reason: nausea and vomiting) Qty: 14 0RF diphenoxylate-atropine 2.5-0.025 mg Tablet 1 tab PO BID PRN (Reason: diarrhea) Qty: 7 0RF polyethylene glycol 3350 [Miralax] 17 gram Powder In Packet 17 g PO BID PRN (Reason: constipation) Qty: 14 0RF pyridostigmine bromide [Mestinon] 60 mg tablet 30 mg PO TID 90 Days Qty: 270 1RF Referrals Referrals: Adriano Castellanos MD [Primary Care Provider] -
[2022-04-18 11:12] LABS: Basophils # (auto) 0.03 K/uL (0-0.2); Basophils % (auto) 0.4 %; Eosinophils # (auto) 0.09 K/uL (0-0.50); Eosinophils % (auto) 1.2 %; Hematocrit (blood only) 46.8 % (34.1-44.9); Hemoglobin 14.8 g/dl (12.0-16.0); Immature Granulocytes # (auto) 0.02 K/uL (0.00-0.02); Immature Granulocytes % (auto) 0.3 %; Lymphocytes # (auto) 0.78 K/uL (1.2-3.4); Lymphocytes % (auto) 10.6 %; Mean Corpuscular Hemoglobin 32.7 pg (25.0-34.0); Mean Corpuscular Hgb Conc 31.6 g/dL (32.0-36.0); Mean Corpuscular Volume 103.5 fL (80.0-100.0); Mean Platelet Volume 10.2 fL (9.4-12.3); Monocytes # (auto) 0.59 K/uL (0.24-0.82); Neutrophils # (auto) 5.85 K/uL (1.4-6.5); Neutrophils % (auto) 79.5 %; Platelet Count 174 K/uL (130-400); RDW Coefficient of Variation 13.4 % (11.5-14.5); RDW Standard Deviation 51.8 fL (36.4-46.3); Red Blood Count 4.52 M/uL (3.93-5.22); White Blood Count 7.36 K/ul (4.8-10.8)
[2022-04-18 11:41] LABS: Albumin Globulin Ratio 1.3 (0.9-2); BUN Creatinine Ratio 18.3 (10-20); Bilirubin,Total 0.9 mg/dl (0.2-1.0); Calcium 9.3 mg/dl (8.5-10.1); Est GFR (African American) 63.2 ml/min; Est GFR (Non-African American) 54.5 ml/min; Potassium 3.4 mmol/L (3.5-5.1)
--- NOTE | 2022-04-18 12:02 | CT Scan Report ---
CT head/brain wo con CLINICAL HISTORY: 87 years-old Female with Trauma. Acute head trauma TECHNIQUE: Multiple axial CT images of the head were obtained without contrast. A dose lowering tech nique was utilized adhering to the principles of ALARA. CT DOSE: 614.27 mGy.cm COMPARISON: 10/01/2019. FINDINGS: No acute intracranial hemorrhage, midline shift, intracranial mass, hydrocephalus, territorial ischem ia or abnormal extra-axial collection. Calcifications of the lentiform and dentate nuclei redemonstra sarah. Age-related involutional changes. White matter hypodensities suggestive of advanced chronic micr ovascular ischemic disease. Streak artifact from the patient's earrings limits the study. The calvarium is intact. Prior bilateral lens repair. The paranasal sinuses, mastoid air cells, and m iddle ear cavities are clear. IMPRESSION: No acute intracranial abnormality or calvarial fracture. ACT 112: Negative or not required by law. The above report was generated using voice recognition software. It may contain grammatical, syntax o r spelling errors. Electronically signed by: Raj Kuo M.D. 04/18/2022 12:01 PM
--- NOTE | 2022-04-18 13:40 | XRay Report ---
XR humerus RT 2V CLINICAL HISTORY: fall COMPARISON: Right humerus radiographs November 27, 2019. FINDINGS: No acute proximal right humeral fracture is noted. There is severe osteoarthritis of the r ight glenohumeral joint. Note is made of an acute right humeral supracondylar fracture. Fracture is d isplaced 1.6 cm. Fracture is angulated. Right forearm radiographs will be reported separately. IMPRESSION: Acute displaced angulated right humeral supracondylar fracture, as described above. ACT 112: Negative or not required by law. Electronically signed by: Kendall Kirby M.D. 04/18/2022 1:39 PM
--- NOTE | 2022-04-18 13:40 | XRay Report ---
XR chest 1V not portable CLINICAL HISTORY: fall. Evaluate cardiopulmonary status COMPARISON STUDY: 03/04/2022 TECHNIQUE: 1 view of the chest FINDINGS: Single frontal view of the chest demonstrates the heart size to be within normal limits status post p revious ICD pacer placement. The lungs are clear of alveolar opacities. There is no evidence for pleu ral effusion. There is no evidence for vascular congestion. There is no acute osseous pathology. Oste oarthritis and osteonecrosis is seen involving both shoulder joints, right greater than left. IMPRESSION: 1. No acute cardiopulmonary disease. ACT 112: Negative or not required by law. Electronically signed by: Juan Antonio Blanchard M.D. 04/18/2022 1:39 PM
--- NOTE | 2022-04-18 13:44 | XRay Report ---
XR hip BÁRBARA 2v w pelvis CLINICAL HISTORY: fall. Pain. COMPARISON STUDY: No previous studies for comparison. TECHNIQUE: AP pelvis and bilateral views FINDINGS: Bones: The bones are osteopenic. There is no evidence for an acute fracture or dislocation. There is no lytic or blastic lesion. Joints: On the left side, the patient is status post total hip replacement with noncemented component s. The prosthetic components are in anatomic alignment. The right side, there is mild narrowing hip joint space superiorly with minimal subchondral sclerosis and marginal osteophyte formation. The remaining visualized bones of the pelvis are intact. The bone s are in anatomic alignment. Lumbar spine: The lower lumbar spine was included on AP pelvis and demonstrates moderate to marked de generative change. Soft tissues: There is no focal soft tissue abnormality. There is no radiopaque foreign body. IMPRESSION: 1. No acute osseous pathology. 2. Osteopenia with osteoarthritis of the right hip. 3. Stable left total hip replacement. 4. Degenerative changes of lumbar spine. ACT 112: Negative or not required by law. Electronically signed by: Juan Antonio Blanchard M.D. 04/18/2022 1:41 PM
[2022-04-18] MEDS ORDERED: ACETAMINOPHEN 1000 MG/100 ML IV IV ONE (13:46)
--- NOTE | 2022-04-18 13:46 | XRay Report ---
XR forearm RT 2V HISTORY: 87 years-old Female fall acute pain of the right upper extremity status post fall COMPARISON: Right humerus radiographs of same day TECHNIQUE: 2 views of the right forearm FINDINGS: There is an acute displaced and angulated supracondylar fracture of the distal radial metaphysis demo nstrating approximately 2 cm volar displacement with approximately 90 degrees angulation. Moderate so ft tissue swelling of the distal upper arm and elbow with associated joint effusion/hemarthrosis. Dem ineralized appearance of the bones. Indeterminate 7 mm corticated ossifications are noted along the m edial margin of the elbow. No dislocation identified. The proximal radius appears intact. ORIF hardwa re of the distal radius. Vertically oriented lucency involving the lateral aspect of the distal radiu s is favored be artifactual. Multifocal osteoarthritis. Subcentimeter bone fragment is noted along th e posterior elbow adjacent to the olecranon. IMPRESSION: 1. Acute, displaced and angulated supracondylar distal radial fracture with large joint effusion/romel rthrosis of the elbow. 2. Subcentimeter bone fragment of the posterior elbow is noted adjacent to the olecranon. This may be secondary to the distal humeral fracture or alternatively may represent a subtle olecranon fracture. 3. ORIF hardware of the distal radius. Vertically oriented distal radial lucency is likely artifactua l. If the patient also has acute right-sided wrist pain, dedicated wrist radiographs may be considere d. ACT 112: Negative or not required by law. The above report was generated using voice recognition software. It may contain grammatical, syntax o r spelling errors. Electronically signed by: Raj Kuo M.D. 04/18/2022 1:45 PM
--- NOTE | 2022-04-18 14:39 | History & Physical Report ---
Date of Service April 18, 2022 Assessment & Plan (1) Right humeral fracture: Plan: After mechanical fall without major concern for underlying event. Also with radial fracture. Immobilized in the ER. - Dr. Morrow consulted in the ER - have reached out to see if he would like a consult or if there is nothing else to do. - Gentle pain control with standing Tylenol and tramadol PRN; want to be very careful as all opioids are relatively contraindicated in myasthenia gravis - PT/OT - Placement (2) Myasthenia gravis, AChR antibody positive: Plan: Follows with a [facility] neurologist. Per family, she was seen recently with blood drawn and some form of IV therapy. - Continue home pyridostigmine - Have reached out to residents to see if we can get updated record. (3) Diabetes: Plan: A1c was 6.0%. Not on home meds. - Sliding scale insulin (4) Nonischemic cardiomyopathy: Plan: Follows with [facility] [place]. Idiopathic cardiomyopathy (status post ICD, EF improved from 25% to 60%) and normal LHC in 2003. S/p ICD. Had recently stopped lisinopril and statin due to orthostatic hypotension and age respectively. - No indication of volume overload. - Monitor (5) Paroxysmal atrial fibrillation: Plan: Presently in sinus rhythm with ventricularly paced rhythm. Not on anticoagulation. - No inpatient needs (6) Hypothyroidism: Plan: TSH was 1.5 in 02/2022. No signs/symptoms of hypo-/hyperthyroidism. - Continue home Synthroid 137 mcg (7) CKD (chronic kidney disease) stage 3, GFR 30-59 ml/min: Plan: Baseline Cr ~0.8 - 1.0. Presently at baseline, with CrCl ~33. - Renally dose medications. (8) DVT prophylaxis: Plan: Heparin 5,000 units SQ Q12h History of Present Illness Primary Care Provider: Adriano Castellanos MD 87yo F w/ hx of prior idiopathic cardiomyopathy (status post ICD, EF improved from 25% to 60%), myasthenia gravis who presents after a fall at home. Per patient, it was a mechanical fall as she was trying to transfer from a chair to her walker. No prodromal symptoms that would indicate arrhythmia or other concerning issue. She fell onto her right arm with immediate pain. She is not sure if she struck her head or not. Allergies Allergy/AdvReac Type Severity Reaction Status Date / Time celecoxib Allergy Severe SX OF Verified 04/18/22 11:39 STROKE, FACIAL NUMBNESS, UNABLE TO SPEAK fesoterodine [From Toviaz] Allergy Unknown Unknown Verified 04/18/22 11:39 solifenacin [From Vesicare] Allergy Unknown Unknown Verified 04/18/22 11:39 morphine AdvReac Intermediate Confusion Verified 04/18/22 11:39 ciprofloxacin AdvReac Mild UPSET Verified 04/18/22 11:39 STOMACH metronidazole AdvReac Mild N/V Verified 04/18/22 11:39 Home Medications Medication Instructions Recorded Confirmed Type cholecalciferol (vitamin D3) 50 2,000 unit PO QAM 08/05/18 04/18/22 History mcg (2,000 unit) tablet (Vitamin D3) ascorbic acid (vitamin C) 500 mg 500 mg PO QAM 02/26/19 04/18/22 History tablet multivit with 1 tab PO QAM 08/21/20 04/18/22 History htfsqzli-wrjd-PG-lutein 8 mg iron-400 mcg-300 mcg tablet (Centrum Silver Women) acetaminophen 500 mg tablet 1,000 mg PO TID PRN Pain 01/15/21 04/18/22 History vitamin A 2,400 mcg capsule 2,400 mcg PO QAM 01/23/21 04/18/22 History cyanocobalamin (vitamin B-12) 500 mcg PO QAM 03/26/21 04/18/22 History 1,000 mcg tablet (Vitamin B-12) pantoprazole 40 mg tablet,delayed 40 mg PO QAM #30 tabs 05/07/21 04/18/22 Rx release glucosamine-chondroitin 250 mg-200 1 tab PO QAM 05/13/21 04/18/22 History mg tablet (Osteo Bi-Flex) oxybutynin chloride 5 mg 5 mg PO HS #30 tabs 10/01/21 04/18/22 Rx tablet,extended release 24 hr gabapentin 300 mg capsule 600 mg PO HS #60 caps 11/19/21 04/18/22 Rx diphenhydramine 25 2 tab PO HS 12/15/21 04/18/22 History mg-acetaminophen 500 mg tablet (Tylenol PM Extra Strength) sennosides 8.6 mg-docusate sodium 1 tab PO BID #60 tabs 02/27/22 04/18/22 Rx 50 mg tablet (Senokot-S) famotidine 10 mg tablet 10 mg PO QAM 03/01/22 04/18/22 History levothyroxine 137 mcg tablet 137 mcg PO QAM 03/01/22 04/18/22 History ondansetron 4 mg disintegrating 4 mg PO Q6H PRN nausea and 03/01/22 04/18/22 Rx tablet vomiting #14 tabs diphenoxylate-atropine 2.5 1 tab PO BID PRN diarrhea #7 tabs 03/08/22 04/18/22 Rx mg-0.025 mg tablet polyethylene glycol 3350 17 gram 17 g PO BID PRN constipation #14 ea 03/08/22 04/18/22 Rx oral powder packet (Miralax) pyridostigmine bromide 60 mg 30 mg PO TID 90 days #270 tabs 03/08/22 04/18/22 Rx tablet (Mestinon) blood sugar diagnostic (OneTouch #300 ea 04/02/22 04/18/22 Rx Ultra Test) alendronate 70 mg tablet 70 mg PO WK #12 tabs 04/16/22 04/18/22 Rx Past Med/Surg History Medical History Acute back pain Acute UTI Anemia Cardiac defibrillator in place Cardiomyopathy Carotid artery stenosis Chronic pancreatitis CKD (chronic kidney disease) stage 3, GFR 30-59 ml/min Colitis Degenerative joint disease (DJD) of hip Diabetes mellitus, type 2 Diabetic nephropathy Diabetic peripheral neuropathy Diverticulitis Diverticulosis of colon Duodenal ulcer Fall Fall GERD (gastroesophageal reflux disease) Hypercholesterolemia IBS (irritable bowel syndrome) ICD (implantable cardioverter-defibrillator) battery depletion Insomnia Lumbar canal stenosis Lumbar spondylosis Nonischemic cardiomyopathy Osteoarthritis Presence of cardiac pacemaker Pulmonary nodule Rib fracture 09/17/18 R/T FALL. D/C'D TO [facility]. Scaphoid fracture of wrist Vitamin D deficiency, unspecified Surgical History History of cardiac cath PER PT, 5-10 YEARS AGO AT [facility] - REASON? 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 S/P kyphoplasty S/P partial colectomy S/P rotator cuff surgery Family History Son Diabetes Sister Breast cancer Denies family history of Ovarian cancer Prostate cancer Hearing loss Coronary heart disease No family history of adverse response to anesthesia No family history of bleeding disorder Heart disease Allergies Myocardial infarction Colorectal cancer Cancer Hypertension Stroke Asthma Social History Smoking Status: Never smoker Second Hand Exposure: No; Hx Alcohol Use: No Hx Substance Use: No Preferred Language: Namibian Communication Ability: Effective Visual Impairment: No Limitations Hearing Ability: Normal Speech And Hearing Director Required: No Beliefs That Will Affect Care: None marital status: Current Living Situation: Spouse current occupational status: retired current occupation: retired from career with [employer] How many Children do You have: 6 Feels Safe at Home: Yes Childhood Exposure to Second-Hand Smoke: No caffeine: Yes Dental Care, Regularly: No Physical Activity Frequency: Does not Exercise Seatbelt Use: always Sunscreen Use: No Assistive Devices: Cane, Denture - Upper, Denture - Lower, Glasses and Walker Review of Systems Review of Systems: All systems reviewed & are unremarkable except as noted in HPI & below Physical Exam Constitutional: WD/WN, vitals as above Eyes: EOM intact bilaterally; no conjunctival abnormality ENMT: external ear and nose normal, oropharynx normal Neck: trachea midline, no thyromegaly normal visual inspection Respiratory: normal respiratory effort, lungs clear to auscultation no respiratory distress Cardiovascular: RRR, no murmur, no edema Gastrointestinal (Abdomen): Inspection/Auscultation: abdomen normal to inspection; abdomen not distended Musculoskeletal: Right arm in sling. Skin: no rashes, warm and dry Neurologic: moves all extremities and awake Psychiatric: Orientation: alert, oriented to person and cooperative Results & Data Results & Data ([facility]) Vital Signs (Past 12 Hours) Vital Signs Temp Pulse Pulse Resp BP BP Pulse Ox 04/18/22 14:30 75 18 103/61 99 04/18/22 13:44 75 16 105/71 100 04/18/22 11:59 80 18 109/63 100 04/18/22 10:50 94 04/18/22 10:20 36.5 C 92 H 18 122/78 99 O2 Del Method O2 Flow Rate 04/18/22 14:30 Nasal Cannula 2 04/18/22 13:44 Nasal Cannula 2 04/18/22 11:59 Nasal Cannula 2 04/18/22 10:50 Nasal Cannula 2 04/18/22 10:20 Nasal Cannula 4 Code Status & VTE Plan VTE Prophylaxis Plan VTE Prophylaxis will be ordered: Yes PG Care Time/CCT Total # of Minutes Spent Total Time Spent with Patient: Total time spent is greater than 50% in coordination of care (as documented) at patient's floor/unit and/or counseling patient: Coding Level of Care Code INT OBSERVATION CARE 70M LVL 3 Diagnoses Right humeral fracture S42.301A Myasthenia gravis, AChR antibody positive G70.00 Diabetes E11.9 Nonischemic cardiomyopathy I42.8 Paroxysmal atrial fibrillation I48.0 Hypothyroidism E03.9 CKD (chronic kidney disease) stage 3, GFR 30-59 ml/min N18.3 DVT prophylaxis Z29.9
[2022-04-18] MEDS ORDERED: DEXTROSE 50% 50 ML SYRINGE IV PRN (16:22)
[2022-04-18] MEDS ORDERED: GLUCOSE 10 TAB/TUBE PO PRN (16:22)
[2022-04-18] MEDS ORDERED: CARBOHYDRATES FOR HYPOGLYCEMIA PO PRN (16:22)
[2022-04-18] MEDS ORDERED: DIPHENOXYLATE/ATROPINE 2.5/0.025MG TAB PO PRN (16:22)
[2022-04-18] MEDS ORDERED: GLUCAGON FOR INJ 1 MG VIAL SQ PRN (16:22)
[2022-04-18] MEDS ORDERED: GLUCOSE 40% GEL 15 GM TUBE PO PRN (16:22)
[2022-04-18] MEDS ORDERED: PYRIDOSTIGMINE BROMIDE 60 MG TAB PO SCH (17:00)
--- NOTE | 2022-04-18 17:44 | Electrocardiogram Report ---
Test Reason : Blood Pressure : / mmHG Vent. Rate : 091 BPM Atrial Rate : 091 BPM P-R Int : 142 ms QRS Dur : 088 ms QT Int : 360 ms P-R-T Axes : 073 -21 045 degrees QTc Int : 442 ms Atrial-sensed ventricular-paced rhythm Abnormal ECG When compared with ECG of 01-MAR-2022 10:40, Electronic ventricular pacemaker has replaced Sinus rhythm Confirmed by Silas Otto ([id number]) on 04/18/2022 5:44:11 PM Referred By: Elkin Castellanos Confirmed By:Silas Otto
--- NOTE | 2022-04-18 17:49 | Orthopedic Consultation ---
Date of Consultation April 18, 2022 Assessment & Plan (1) Myasthenia gravis: (2) Right humeral fracture: I had a long discussion with the patient, her , and 2 daughters about her diagnosis and treatment options. These include surgical and nonsurgical treatment. She would be a high risk candidate for surgery given her osteoporosis and multiple medical comorbidities. Patient is adamant that she does not want surgery. Nonsurgical treatment option would be a brief period of immobilization followed by early active range of motion. In all likelihood this will result in a nonunion through the fracture, however she has a reasonable chance of regaining adequate function of her right upper extremity. She understands that she could develop stiffness in her elbow as well of had some chronic pain from the nonunion. Patient accepts these risks and would like to proceed with nonsurgical treatment. She will remain in the posterior splint for 2 weeks. She will follow-up in my clinic 2 weeks from now for splint removal and x-rays out of the splint. We will plan on beginning physical therapy at that time. In the meantime DVT prophylaxis as per her primary team. Orthopedic recommendation would be for aspirin. She should elevate her hand and elbow on pillows whenever she is in bed. She is nonweightbearing through the right upper extremity. Patient will be admitted to the internal medicine service for placement. She and her family understand that it may be difficult for her to regain the ability to ambulate as a result of this injury, even after appropriate rehabilitation. (3) Osteoporosis: History of Present Illness Attending Physician: Frank Park MD History of Present Illness The patient is an 87-year-old female with history of myasthenia gravis, osteoporosis, paroxysmal atrial fibrillation, nonischemic cardiomyopathy with reduced ejection fraction, status post ICD, who presents the emergency department after a fall. Patient states that she was at home and she was trying to transfer into her lounge chair from her walker, she states that she lost her balance and fell onto her right arm. Patient does not know if she hit her head or not. On arrival here to the ED the patient was unable to move her right arm secondary to pain from her shoulder down to her wrist. X-rays were obtained demonstrating a distal humerus fracture with displacement. Orthopedics was consulted for evaluation and treatment. Patient was seen and examined in the emergency room. She is already been splinted. She reports her elbow feels much better now that it is in a splint. She denies any skin lesions. She denies any numbness or tingling in her fingers above and beyond what she normally has from her myasthenia gravis. Allergies Allergy/AdvReac Type Severity Reaction Status Date / Time celecoxib Allergy Severe SX OF Verified 04/18/22 11:39 STROKE, FACIAL NUMBNESS, UNABLE TO SPEAK fesoterodine [From Toviaz] Allergy Unknown Unknown Verified 04/18/22 11:39 solifenacin [From Vesicare] Allergy Unknown Unknown Verified 04/18/22 11:39 morphine AdvReac Intermediate Confusion Verified 04/18/22 11:39 ciprofloxacin AdvReac Mild UPSET Verified 04/18/22 11:39 STOMACH metronidazole AdvReac Mild N/V Verified 04/18/22 11:39 Home Medications Medication Instructions Recorded Confirmed Type cholecalciferol (vitamin D3) 50 2,000 unit PO QAM 08/05/18 04/18/22 History mcg (2,000 unit) tablet (Vitamin D3) ascorbic acid (vitamin C) 500 mg 500 mg PO QAM 02/26/19 04/18/22 History tablet multivit with 1 tab PO QAM 08/21/20 04/18/22 History ejdpmsxz-dcal-ZZ-lutein 8 mg iron-400 mcg-300 mcg tablet (Centrum Silver Women) acetaminophen 500 mg tablet 1,000 mg PO TID PRN Pain 01/15/21 04/18/22 History vitamin A 2,400 mcg capsule 2,400 mcg PO QAM 01/23/21 04/18/22 History cyanocobalamin (vitamin B-12) 500 mcg PO QAM 03/26/21 04/18/22 History 1,000 mcg tablet (Vitamin B-12) pantoprazole 40 mg tablet,delayed 40 mg PO QAM #30 tabs 05/07/21 04/18/22 Rx release glucosamine-chondroitin 250 mg-200 1 tab PO QAM 05/13/21 04/18/22 History mg tablet (Osteo Bi-Flex) oxybutynin chloride 5 mg 5 mg PO HS #30 tabs 10/01/21 04/18/22 Rx tablet,extended release 24 hr gabapentin 300 mg capsule 600 mg PO HS #60 caps 11/19/21 04/18/22 Rx diphenhydramine 25 2 tab PO HS 12/15/21 04/18/22 History mg-acetaminophen 500 mg tablet (Tylenol PM Extra Strength) sennosides 8.6 mg-docusate sodium 1 tab PO BID #60 tabs 02/27/22 04/18/22 Rx 50 mg tablet (Senokot-S) famotidine 10 mg tablet 10 mg PO QAM 03/01/22 04/18/22 History levothyroxine 137 mcg tablet 137 mcg PO QAM 03/01/22 04/18/22 History ondansetron 4 mg disintegrating 4 mg PO Q6H PRN nausea and 03/01/22 04/18/22 Rx tablet vomiting #14 tabs diphenoxylate-atropine 2.5 1 tab PO BID PRN diarrhea #7 tabs 03/08/22 04/18/22 Rx mg-0.025 mg tablet polyethylene glycol 3350 17 gram 17 g PO BID PRN constipation #14 ea 03/08/22 04/18/22 Rx oral powder packet (Miralax) blood sugar diagnostic (OneTouch #300 ea 04/02/22 04/18/22 Rx Ultra Test) alendronate 70 mg tablet 70 mg PO WK #12 tabs 04/16/22 04/18/22 Rx pyridostigmine bromide 60 mg See Rx Instructions .Route .COMPLEX 04/18/22 04/18/22 History tablet (Mestinon) Patient History Medical History (Updated 04/18/22 @ 17:41 by Fabian Morrow MD) Acute back pain Acute UTI Anemia Cardiac defibrillator in place Cardiomyopathy Carotid artery stenosis Chronic pancreatitis CKD (chronic kidney disease) stage 3, GFR 30-59 ml/min Colitis Degenerative joint disease (DJD) of hip Diabetes mellitus, type 2 Diabetic nephropathy Diabetic peripheral neuropathy Diverticulitis Diverticulosis of colon Duodenal ulcer Fall Fall GERD (gastroesophageal reflux disease) Hypercholesterolemia IBS (irritable bowel syndrome) ICD (implantable cardioverter-defibrillator) battery depletion Insomnia Lumbar canal stenosis Lumbar spondylosis Nonischemic cardiomyopathy Osteoarthritis Presence of cardiac pacemaker Pulmonary nodule Rib fracture 09/17/18 R/T FALL. D/C'D TO [facility]. Scaphoid fracture of wrist Vitamin D deficiency, unspecified Surgical History History of cardiac cath PER PT, 5-10 YEARS AGO AT [facility] - REASON? 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 S/P kyphoplasty S/P partial colectomy S/P rotator cuff surgery Family History Son Diabetes Sister Breast cancer Denies family history of Ovarian cancer Prostate cancer Hearing loss Coronary heart disease No family history of adverse response to anesthesia No family history of bleeding disorder Heart disease Allergies Myocardial infarction Colorectal cancer Cancer Hypertension Stroke Asthma Social History Smoking Status: Never smoker Second Hand Exposure: No; Hx Alcohol Use: No Hx Substance Use: No Preferred Language: Ethiopian Communication Ability: Effective Visual Impairment: No Limitations Hearing Ability: Normal Configuration Specialist Required: No Beliefs That Will Affect Care: None marital status: Current Living Situation: Spouse current occupational status: retired current occupation: retired from career with [employer] How many Children do You have: 6 Feels Safe at Home: Yes Childhood Exposure to Second-Hand Smoke: No caffeine: Yes Dental Care, Regularly: No Physical Activity Frequency: Does not Exercise Seatbelt Use: always Sunscreen Use: No Assistive Devices: Cane, Denture - Upper, Denture - Lower, Glasses and Walker Physical Exam Physical Exam: On exam she is sitting comfortably in bed in no acute distress. She answers all questions appropriately. HEENT exam reveals drooping eyelids consistent with her myasthenia gravis history. Right arm exam reveals splint to be in place. She has sensation intact to light touch in the median ulnar and radial nerve distributions on her exposed hand. 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 Fingers are warm and well-perfused. Results & Data ([facility]) Vital Signs (Past 12 Hours) Vital Signs Temp Pulse Pulse Resp BP BP Pulse Ox 04/18/22 16:57 71 18 98/64 L 97 04/18/22 16:22 04/18/22 16:00 70 18 96/91 L 97 04/18/22 14:30 75 18 103/61 99 04/18/22 13:44 75 16 105/71 100 04/18/22 11:59 80 18 109/63 100 04/18/22 10:50 94 04/18/22 10:20 36.5 C 92 H 18 122/78 99 O2 Del Method O2 Flow Rate 04/18/22 16:57 Nasal Cannula 2 04/18/22 16:22 Room Air 04/18/22 16:00 Nasal Cannula 2 04/18/22 14:30 Nasal Cannula 2 04/18/22 13:44 Nasal Cannula 2 04/18/22 11:59 Nasal Cannula 2 04/18/22 10:50 Nasal Cannula 2 04/18/22 10:20 Nasal Cannula 4 Diagnostic Findings X-rays done in the emergency room of the right forearm and right humerus demonstrate an acute posteriorly displaced supracondylar distal humerus fracture.
[2022-04-18] MEDS: INSULIN ASPART PER UNIT SC SCH ×2 (17:59→22:57)
[2022-04-18] MEDS: PYRIDOSTIGMINE BROMIDE 60 MG TAB PO SCH (18:14)
[2022-04-18] MEDS: ACETAMINOPHEN 500 MG TAB PO SCH (22:44)
[2022-04-18] MEDS: OXYBUTYNIN CHLORIDE XL 5 MG TABCR PO SCH (22:45)
[2022-04-18] MEDS: HEPARIN SOD 5,000 UNIT/0.5 ML VIAL SQ SCH (22:45)
[2022-04-18] MEDS: DOCUSATE SODIUM/SENNA 50/8.6MG TAB PO SCH (22:46)
[2022-04-18] MEDS: GABAPENTIN 300 MG CAP PO SCH (22:46)
[2022-04-19] MEDS: LEVOTHYROXINE SODIUM 137 MCG TABLET PO SCH (05:46)
[2022-04-19] MEDS: traMADol HCL 50 MG TABLET PO PRN ×3 (05:53→18:07)
[2022-04-19] MEDS ORDERED: PYRIDOSTIGMINE BROMIDE 60 MG TAB PO SCH (09:00)
[2022-04-19] MEDS: INSULIN ASPART PER UNIT SC SCH ×4 (09:03→21:39)
[2022-04-19] MEDS: ACETAMINOPHEN 500 MG TAB PO SCH ×3 (09:05→21:31)
[2022-04-19] MEDS: FAMOTIDINE 10 MG TABLET PO SCH (09:06)
[2022-04-19] MEDS: PANTOprazole 40 MG TAB PO SCH (09:06)
[2022-04-19] MEDS: HEPARIN SOD 5,000 UNIT/0.5 ML VIAL SQ SCH ×2 (09:06→21:26)
[2022-04-19] MEDS: DOCUSATE SODIUM/SENNA 50/8.6MG TAB PO SCH ×2 (09:06→21:31)
[2022-04-19] MEDS: PYRIDOSTIGMINE BROMIDE 60 MG TAB PO SCH ×2 (12:06→15:36)
--- NOTE | 2022-04-19 16:20 | Orthopedic Progress Note ---
Date of Service April 19, 2022 Assessment & Plan (1) Right humeral fracture: Plan: Pt will remain in splint and sling. Advised on elevation of RUE and moving digits to assist w/ edema. She can continue with ice over the arm/shoulder as needed w/ towel layer x20min. From orthopedic standpoint she will f/u in our office in 2 weeks. Advised to contact our office with any concerns. She will be d/c once medically stable per medical team. Pt and family are in agreement with plan and verbalized understanding. Present on Admission?: Yes Admission and Anticipated Discharge Date Admission Date: April 18, 2022 Subjective Pt is s/p a splinted closed displaced supracondylar distal humerus fracture. She is sitting in bedside chair. She c/o swelling in her digits. She c/o pain in the RUE no number provided She denies any change in temperature of the digits or numbness in the digits. She offers no other concerns. Her family was present at time of exam. Physical Exam Physical Exam: Pt is sitting comfortably in bedside chair. She is pleasant, alert and oriented. RUE splinted in a sling. digits are normal in color and edematous. She is able to wiggle digits and flex/extend digits. Sensation is intact in all digits. Neg for any skin irritation over proximal splint or distal. RUE is NVi Results & Data ([facility]) Vital Signs (Past 12 Hours) Vital Signs Temp Pulse Resp BP Pulse Ox O2 Del Method O2 Flow Rate 04/19/22 07:54 36.8 C 79 18 109/67 100 Nasal Cannula 2
[2022-04-19] MEDS ORDERED: Nursing to Pharmacy Communication SCH (16:30)
[2022-04-19] MEDS: ONDANSETRON INJ 2 MG/ML 2 ML VIAL IV PRN ×2 (18:07→21:31)
--- NOTE | 2022-04-19 20:56 | Hospitalist Progress Note ---
Date of Service April 19, 2022 Assessment & Plan (1) Right humeral fracture: Plan: After mechanical fall without major concern for underlying event. Also with radial fracture. Immobilized in the ER. - Dr. Morrow consulted in the ER - have reached out to see if he would like a consult or if there is nothing else to do. - Gentle pain control with standing Tylenol and tramadol PRN; want to be very careful as all opioids are relatively contraindicated in myasthenia gravis - PT/OT - Placement 04/19 Plan is to go the conservative route. Patient will be awaiting placement to rehab, (2) Myasthenia gravis, AChR antibody positive: Plan: Follows with a [place] neurologist. Per family, she was seen recently with blood drawn and some form of IV therapy. - Continue home pyridostigmine - Have reached out to residents to see if we can get updated record. (3) Diabetes: Plan: A1c was 6.0%. Not on home meds. - Sliding scale insulin (4) Nonischemic cardiomyopathy: Plan: Follows with [facility]. Idiopathic cardiomyopathy (status post ICD, EF improved from 25% to 60%) and normal LHC in 2003. S/p ICD. Had recently stopped lisinopril and statin due to orthostatic hypotension and age respectively. - No indication of volume overload. - Monitor (5) Paroxysmal atrial fibrillation: Plan: Presently in sinus rhythm with ventricularly paced rhythm. Not on anticoagulation. - No inpatient needs (6) Hypothyroidism: Plan: TSH was 1.5 in 02/2022. No signs/symptoms of hypo-/hyperthyroidism. - Continue home Synthroid 137 mcg (7) CKD (chronic kidney disease) stage 3, GFR 30-59 ml/min: Plan: Baseline Cr ~0.8 - 1.0. Presently at baseline, with CrCl ~33. - Renally dose medications. (8) DVT prophylaxis: Plan: Heparin 5,000 units SQ Q12h Admission and Anticipated Discharge Date Admission Date: April 19, 2022 Subjective 87 yo femlae reports having nausea. No other complaints. Review of Systems Review of Systems: All systems reviewed & are unremarkable except as noted in HPI & below Physical Exam Physical Exam: Constitutional: WD/WN, vitals as above Eyes: EOM intact bilaterally; no conjunctival abnormality ENMT: external ear and nose normal, oropharynx normal Neck: trachea midline, no thyromegaly normal visual inspection Respiratory: normal respiratory effort, lungs clear to auscultation no respi ratory distress Cardiovascular: RRR, no murmur, no edema Gastrointestinal (Abdomen): Inspection/Auscultation: abdomen normal to inspection; abdomen not distended Musculoskeletal: Right arm in sling. Skin: no rashes, warm and dry Neurologic: moves all extremities and awake Psychiatric: Orientation: alert, oriented to person and cooperative PG Care Time/CCT Total # of Minutes Spent Total Time Spent with Patient: Total time spent is greater than 50% in coordination of care (as documented) at patient's floor/unit and/or counseling patient: Coding Level of Care Code 61117 Subseq Hosp Care Lvl 2 Diagnoses Right humeral fracture S42.301A Myasthenia gravis, AChR antibody positive G70.00 Diabetes E11.9 Nonischemic cardiomyopathy I42.8 Paroxysmal atrial fibrillation I48.0 Hypothyroidism E03.9 CKD (chronic kidney disease) stage 3, GFR 30-59 ml/min N18.3 DVT prophylaxis Z29.9 Time Spent (min) 25
[2022-04-19] MEDS: OXYBUTYNIN CHLORIDE XL 5 MG TABCR PO SCH (21:27)
[2022-04-19] MEDS: GABAPENTIN 300 MG CAP PO SCH (21:27)
[2022-04-20] MEDS: LEVOTHYROXINE SODIUM 137 MCG TABLET PO SCH (06:27)
[2022-04-20] MEDS: PYRIDOSTIGMINE BROMIDE 60 MG TAB PO SCH ×3 (06:28→16:34)
[2022-04-20] MEDS: ACETAMINOPHEN 500 MG TAB PO SCH ×3 (08:25→21:16)
[2022-04-20] MEDS: ONDANSETRON INJ 2 MG/ML 2 ML VIAL IV PRN ×3 (08:31→18:12)
[2022-04-20] MEDS: INSULIN ASPART PER UNIT SC SCH ×4 (09:18→21:17)
[2022-04-20] MEDS: FAMOTIDINE 10 MG TABLET PO SCH (10:05)
[2022-04-20] MEDS: DOCUSATE SODIUM/SENNA 50/8.6MG TAB PO SCH ×2 (10:05→21:16)
[2022-04-20] MEDS: HEPARIN SOD 5,000 UNIT/0.5 ML VIAL SQ SCH ×2 (10:06→21:13)
[2022-04-20] MEDS: PANTOprazole 40 MG TAB PO SCH (10:06)
[2022-04-20] MEDS: traMADol HCL 50 MG TABLET PO PRN (10:47)
--- NOTE | 2022-04-20 16:12 | Hospitalist Progress Note ---
Date of Service April 20, 2022 Assessment & Plan (1) Right humeral fracture: Plan: After mechanical fall without major concern for underlying event. Also with radial fracture. Immobilized in the ER. - Dr. Morrow consulted in the ER - have reached out to see if he would like a consult or if there is nothing else to do. - Gentle pain control with standing Tylenol and tramadol PRN; want to be very careful as all opioids are relatively contraindicated in myasthenia gravis - PT/OT - Placement 04/20 Plan is to go the conservative route. Patient will be awaiting placement to rehab (2) Myasthenia gravis, AChR antibody positive: Plan: Follows with a [place] neurologist. Per family, she was seen recently with blood drawn and some form of IV therapy. - Continue home pyridostigmine - Have reached out to residents to see if we can get updated record. (3) Diabetes: Plan: A1c was 6.0%. Not on home meds. - Sliding scale insulin (4) Nonischemic cardiomyopathy: Plan: Follows with [facility]. Idiopathic cardiomyopathy (status post ICD, EF improved from 25% to 60%) and normal LHC in 2003. S/p ICD. Had recently stopped lisinopril and statin due to orthostatic hypotension and age respectively. - No indication of volume overload. - Monitor (5) Paroxysmal atrial fibrillation: Plan: Presently in sinus rhythm with ventricularly paced rhythm. Not on anticoagulation. - No inpatient needs (6) Hypothyroidism: Plan: TSH was 1.5 in 02/2022. No signs/symptoms of hypo-/hyperthyroidism. - Continue home Synthroid 137 mcg (7) CKD (chronic kidney disease) stage 3, GFR 30-59 ml/min: Plan: Baseline Cr ~0.8 - 1.0. Presently at baseline, with CrCl ~33. - Renally dose medications. (8) DVT prophylaxis: Plan: Heparin 5,000 units SQ Q12h Admission and Anticipated Discharge Date Admission Date: April 19, 2022 Subjective 87 yo female reports feeling better today. Her nausea has improved. Review of Systems Review of Systems: All systems reviewed & are unremarkable except as noted in HPI & below Physical Exam Physical Exam: Constitutional: WD/WN, vitals as above Eyes: EOM intact bilaterally; no conjunctival abnormality ENMT: external ear and nose normal, oropharynx normal Neck: trachea midline, no thyromegaly normal visual inspection Respiratory: normal respiratory effort, lungs clear to auscultation no respiratory distress Cardiovascular: RRR, no murmur, no edema Gastrointestinal (Abdomen): Inspection/Auscultation: abdomen normal to inspection; abdomen not distended Musculoskeletal: Right arm in sling. Skin: no rashes, warm and dry Neurologic: moves all extremities and awake Psychiatric: Orientation: alert, oriented to person and cooperative Results & Data Results & Data ([facility]) Vital Signs (Past 12 Hours) Vital Signs Temp Pulse Resp BP Pulse Ox O2 Del Method 04/20/22 15:48 36.6 C 68 18 111/63 94 Room Air 04/20/22 08:00 36.7 C 68 18 113/69 93 Room Air PG Care Time/CCT Total # of Minutes Spent Total Time Spent with Patient: Total time spent is greater than 50% in coordination of care (as documented) at patient's floor/unit and/or counseling patient: Coding Level of Care Code 19198 Subseq Hosp Care Lvl 2 Diagnoses Right humeral fracture S42.301A Myasthenia gravis, AChR antibody positive G70.00 Diabetes E11.9 Nonischemic cardiomyopathy I42.8 Paroxysmal atrial fibrillation I48.0 Hypothyroidism E03.9 CKD (chronic kidney disease) stage 3, GFR 30-59 ml/min N18.3 DVT prophylaxis Z29.9
[2022-04-20] MEDS: ONDANSETRON 4 MG OD TAB PO PRN ×2 (18:18→18:20)
[2022-04-20] MEDS ORDERED: PROCHLORPERAZINE MALEATE 5 MG TAB PO ONE (20:49)
[2022-04-20] MEDS: GABAPENTIN 300 MG CAP PO SCH (21:12)
[2022-04-20] MEDS: OXYBUTYNIN CHLORIDE XL 5 MG TABCR PO SCH (21:13)
[2022-04-21] MEDS: LEVOTHYROXINE SODIUM 137 MCG TABLET PO SCH (06:01)
[2022-04-21] MEDS: PYRIDOSTIGMINE BROMIDE 60 MG TAB PO SCH ×3 (06:02→16:10)
[2022-04-21 07:51] LABS: Hematocrit (blood only) 39.9 % (34.1-44.9); Hemoglobin 12.7 g/dl (12.0-16.0); Mean Corpuscular Hemoglobin 32.6 pg (25.0-34.0); Mean Corpuscular Hgb Conc 31.8 g/dL (32.0-36.0); Mean Corpuscular Volume 102.3 fL (80.0-100.0); Mean Platelet Volume 10.6 fL (9.4-12.3); Platelet Count 191 K/uL (130-400); RDW Coefficient of Variation 13.2 % (11.5-14.5); RDW Standard Deviation 49.7 fL (36.4-46.3); White Blood Count 6.34 K/ul (4.8-10.8)
[2022-04-21 08:11] LABS: BUN Creatinine Ratio 20.5 (10-20); Calcium 8.6 mg/dl (8.5-10.1); Est GFR (African American) 72.5 ml/min; Est GFR (Non-African American) 62.5 ml/min; Potassium 3.8 mmol/L (3.5-5.1)
[2022-04-21] MEDS: FAMOTIDINE 10 MG TABLET PO SCH (08:55)
[2022-04-21] MEDS: PANTOprazole 40 MG TAB PO SCH (08:56)
[2022-04-21] MEDS: HEPARIN SOD 5,000 UNIT/0.5 ML VIAL SQ SCH ×2 (08:57→20:33)
[2022-04-21] MEDS: INSULIN ASPART PER UNIT SC SCH ×4 (09:01→21:37)
[2022-04-21] MEDS: DOCUSATE SODIUM/SENNA 50/8.6MG TAB PO SCH ×2 (09:05→20:33)
[2022-04-21] MEDS: ACETAMINOPHEN 500 MG TAB PO SCH ×3 (09:05→20:32)
--- NOTE | 2022-04-21 14:10 | Hospitalist Progress Note ---
Date of Service April 21, 2022 Assessment & Plan (1) Right humeral fracture: Plan: After mechanical fall without major concern for underlying event. Also with radial fracture. Immobilized in the ER. - Dr. Morrow consulted in the ER - have reached out to see if he would like a consult or if there is nothing else to do. - Gentle pain control with standing Tylenol and tramadol PRN; want to be very careful as all opioids are relatively contraindicated in myasthenia gravis - PT/OT - Placement 04/20 Plan is to go the conservative route. Patient will be awaiting placement to rehab 04/21 Pain appears controlled. will monitor. (2) Myasthenia gravis, AChR antibody positive: Plan: Follows with a [place] neurologist. Per family, she was seen recently with blood drawn and some form of IV therapy. - Continue home pyridostigmine - Have reached out to residents to see if we can get updated record. (3) Diabetes: Plan: A1c was 6.0%. Not on home meds. - Sliding scale insulin (4) Nonischemic cardiomyopathy: Plan: Follows with [facility]. Idiopathic cardiomyopathy (status post ICD, EF improved from 25% to 60%) and normal LHC in 2003. S/p ICD. Had recently stopped lisinopril and statin due to orthostatic hypotension and age respectively. - No indication of volume overload. - Monitor (5) Paroxysmal atrial fibrillation: Plan: Presently in sinus rhythm with ventricularly paced rhythm. Not on ant icoagulation. - No inpatient needs (6) Hypothyroidism: Plan: TSH was 1.5 in 02/2022. No signs/symptoms of hypo-/hyperthyroidism. - Continue home Synthroid 137 mcg (7) CKD (chronic kidney disease) stage 3, GFR 30-59 ml/min: Plan: Baseline Cr ~0.8 - 1.0. Presently at baseline, with CrCl ~33. - Renally dose medications. (8) DVT prophylaxis: Plan: Heparin 5,000 units SQ Q12h (9) Diarrhea: Plan: Patient having diarrhea. Checked for c diff, this was negative. will monitor. Admission and Anticipated Discharge Date Admission Date: April 19, 2022 Subjective 87 yo female was complaining of diarrhea overnight. However, her diarrhea has improved as she states she only had one BM this AM. Review of Systems Review of Systems: All systems reviewed & are unremarkable except as noted in HPI & below Physical Exam Physical Exam: Constitutional: WD/WN, vitals as above Eyes: EOM intact bilaterally; no conjunctival abnormality ENMT: external ear and nose normal, oropharynx normal Neck: trachea midline, no thyromegaly normal visual inspection Respiratory: normal respiratory effort, lungs clear to auscultation no respiratory distress Cardiovascular: RRR, no murmur, no edema Gastrointestinal (Abdomen): Inspection/Auscultation: abdomen normal to inspection; abdomen not distended Musculoskeletal: Right arm in sling. Skin: no rashes, warm and dry Neurologic: moves all extremities and awake Psychiatric: Orientation: alert, oriented to person and cooperative Results & Data Results & Data ([facility]) Vital Signs (Past 12 Hours) Vital Signs Temp Pulse Resp BP Pulse Ox O2 Del Method 04/21/22 08:00 36.7 C 58 L 18 138/74 94 Room Air PG Care Time/CCT Total # of Minutes Spent Total Time Spent with Patient: Total time spent is greater than 50% in coordination of care (as documented) at patient's floor/unit and/or counseling patient: Coding Level of Care Code 01741 Subseq Hosp Care Lvl 2 Diagnoses Right humeral fracture S42.301A Myasthenia gravis, AChR antibody positive G70.00 Diabetes E11.9 Nonischemic cardiomyopathy I42.8 Paroxysmal atrial fibrillation I48.0 Hypothyroidism E03.9 CKD (chronic kidney disease) stage 3, GFR 30-59 ml/min N18.3 DVT prophylaxis Z29.9 Diarrhea R19.7 Diarrhea type: unspecified type (1) Diarrhea Diarrhea type: unspecified type Qualified Code(s): R19.7 - Diarrhea, unspecified
[2022-04-21] MEDS: GABAPENTIN 300 MG CAP PO SCH (20:32)
[2022-04-21] MEDS: OXYBUTYNIN CHLORIDE XL 5 MG TABCR PO SCH (20:32)
[2022-04-21] MEDS: traMADol HCL 50 MG TABLET PO PRN (23:25)
[2022-04-22] MEDS: PYRIDOSTIGMINE BROMIDE 60 MG TAB PO SCH ×3 (05:50→16:15)
[2022-04-22] MEDS: LEVOTHYROXINE SODIUM 137 MCG TABLET PO SCH (05:50)
[2022-04-22] MEDS: PANTOprazole 40 MG TAB PO SCH (08:14)
[2022-04-22] MEDS: FAMOTIDINE 10 MG TABLET PO SCH (08:14)
[2022-04-22] MEDS: INSULIN ASPART PER UNIT SC SCH ×4 (08:14→20:14)
[2022-04-22] MEDS: DOCUSATE SODIUM/SENNA 50/8.6MG TAB PO SCH ×2 (08:15→20:13)
[2022-04-22] MEDS: HEPARIN SOD 5,000 UNIT/0.5 ML VIAL SQ SCH ×2 (08:15→20:14)
[2022-04-22] MEDS: ACETAMINOPHEN 500 MG TAB PO SCH ×3 (08:17→20:13)
--- NOTE | 2022-04-22 16:33 | Hospitalist Progress Note ---
Date of Service April 22, 2022 Assessment & Plan (1) Right humeral fracture: Plan: After mechanical fall without major concern for underlying event. Also with radial fracture. Immobilized in the ER. - Dr. Morrow consulted in the ER - have reached out to see if he would like a consult or if there is nothing else to do. - Gentle pain control with standing Tylenol and tramadol PRN; want to be very careful as all opioids are relatively contraindicated in myasthenia gravis - PT/OT - Placement 04/20 Plan is to go the conservative route. Patient will be awaiting placement to rehab 04/21 Pain appears controlled. will monitor. 04/22 Patient will be going to rehab likely tomorrow. having diarrhea, will check kub (2) Myasthenia gravis, AChR antibody positive: Plan: Follows with a [place] neurologist. Per family, she was seen recently with blood drawn and some form of IV therapy. - Continue home pyridostigmine - Have reached out to residents to see if we can get updated record. (3) Diabetes: Plan: A1c was 6.0%. Not on home meds. - Sliding scale insulin (4) Nonischemic cardiomyopathy: Plan: Follows with [facility]. Idiopathic cardiomyopathy (status post ICD, EF improved from 25% to 60%) and normal LHC in 2003. S/p ICD. Had recently stopped lisinopril and statin due to orthostatic hypotension and age respectively. - No indication of volume overload. - Monitor (5) Paroxysmal atrial fibrillation: Plan: Presently in sinus rhythm with ventricularly paced rhythm. Not on anticoagulation. - No inpatient needs (6) Hypothyroidism: Plan: TSH was 1.5 in 02/2022. No signs/symptoms of hypo-/hyperthyroidism. - Continue home Synthroid 137 mcg (7) CKD (chronic kidney disease) stage 3, GFR 30-59 ml/min: Plan: Baseline Cr ~0.8 - 1.0. Presently at baseline, with CrCl ~33. - Renally dose medications. (8) DVT prophylaxis: Plan: Heparin 5,000 units SQ Q12h (9) Diarrhea: Plan: Patient having diarrhea. Checked for c diff, this was negative. will monitor. will check kub for obstructive pattern for possible overflow Admission and Anticipated Discharge Date Admission Date: April 19, 2022 Subjective 87 yo female reports no new symptoms. Review of Systems Review of Systems: All systems reviewed & are unremarkable except as noted in HPI & below Physical Exam Physical Exam: Constitutional: WD/WN, vitals as above Eyes: EOM intact bilaterally; no conjunctival abnormality ENMT: external ear and nose normal, oropharynx normal Neck: trachea midline, no thyromegaly normal visual inspection Respiratory: normal respiratory effort, lungs clear to auscultation no respiratory distress Cardiovascular: RRR, no murmur, no edema Gastrointestinal (Abdomen): Inspection/Auscultation: abdomen normal to inspection; abdomen not distended Musculoskeletal: Right arm in sling. Skin: no rashes, warm and dry Neurologic: moves all extremities and awake Psychiatric: Orientation: alert, oriented to person and cooperative Results & Data Results & Data ([facility]) Vital Signs (Past 12 Hours) Vital Signs Temp Pulse Resp BP Pulse Ox O2 Del Method 04/22/22 15:57 36.7 C 74 18 139/74 94 Room Air 04/22/22 07:52 36.8 C 65 19 119/68 95 Room Air PG Care Time/CCT Total # of Minutes Spent Total Time Spent with Patient: Total time spent is greater than 50% in coordination of care (as documented) at patient's floor/unit and/or counseling patient: Coding Level of Care Code 15535 Subseq Hosp Care Lvl 2 Diagnoses Right humeral fracture S42.301A Myasthenia gravis, AChR antibody positive G70.00 Diabetes E11.9 Nonischemic cardiomyopathy I42.8 Paroxysmal atrial fibrillation I48.0 Hypothyroidism E03.9 CKD (chronic kidney disease) stage 3, GFR 30-59 ml/min N18.3 DVT prophylaxis Z29.9 Diarrhea R19.7 Diarrhea type: unspecified type (1) Diarrhea Diarrhea type: unspecified type Qualified Code(s): R19.7 - Diarrhea, unspecified
--- NOTE | 2022-04-22 19:12 | XRay Report ---
KUB HISTORY: Acute generalized abdominal pain diarrhea/ rule out overflow COMPARISON: KUB 03/05/2022, CT abdomen and pelvis 03/18/2022 FINDINGS: Nonobstructive bowel gas pattern. Colonic fecal retention is mild and within normal limits. No urolith identified. Severe degenerative changes of the lumbar spine with levoscoliosis. Left hip total joint arthroplasty. No pneumoperitoneum or pneumatosis. No fracture. IMPRESSION: Nonobstructive bowel gas pattern. No radiographic evidence of constipation. ACT 112: Negative or not required by law. The above report was generated using voice recognition software. It may contain grammatical, syntax o r spelling errors. Electronically signed by: Raj Kuo M.D. 04/22/2022 7:11 PM
[2022-04-22] MEDS: GABAPENTIN 300 MG CAP PO SCH (20:13)
[2022-04-22] MEDS: OXYBUTYNIN CHLORIDE XL 5 MG TABCR PO SCH (20:14)
[2022-04-22] MEDS: traMADol HCL 50 MG TABLET PO PRN (23:07)
[2022-04-23] MEDS: traMADol HCL 50 MG TABLET PO PRN (04:21)
[2022-04-23] MEDS: LEVOTHYROXINE SODIUM 137 MCG TABLET PO SCH (05:32)
[2022-04-23] MEDS: PYRIDOSTIGMINE BROMIDE 60 MG TAB PO SCH ×3 (05:32→16:10)
[2022-04-23] MEDS: ONDANSETRON 4 MG OD TAB PO PRN ×2 (06:22→13:36)
[2022-04-23 06:47] LABS: Hematocrit (blood only) 40.2 % (34.1-44.9); Hemoglobin 13.3 g/dl (12.0-16.0); Mean Corpuscular Hemoglobin 32.8 pg (25.0-34.0); Mean Corpuscular Hgb Conc 33.1 g/dL (32.0-36.0); Mean Platelet Volume 10.5 fL (9.4-12.3); Platelet Count 218 K/uL (130-400); RDW Coefficient of Variation 13.2 % (11.5-14.5); RDW Standard Deviation 48.4 fL (36.4-46.3); Red Blood Count 4.06 M/uL (3.93-5.22); White Blood Count 6.69 K/ul (4.8-10.8)
[2022-04-23 07:06] LABS: Calcium 8.7 mg/dl (8.5-10.1); Creatinine Clr Calc Pharmacy 35.3 ml/min; Est GFR (African American) 75.8 ml/min; Est GFR (Non-African American) 65.4 ml/min; Potassium 3.9 mmol/L (3.5-5.1)
[2022-04-23] MEDS: ACETAMINOPHEN 500 MG TAB PO SCH ×3 (09:27→20:08)
[2022-04-23] MEDS: INSULIN ASPART PER UNIT SC SCH ×4 (09:27→20:27)
[2022-04-23] MEDS: PANTOprazole 40 MG TAB PO SCH (09:28)
[2022-04-23] MEDS: DOCUSATE SODIUM/SENNA 50/8.6MG TAB PO SCH ×2 (09:28→20:07)
[2022-04-23] MEDS: FAMOTIDINE 10 MG TABLET PO SCH (09:28)
[2022-04-23] MEDS: HEPARIN SOD 5,000 UNIT/0.5 ML VIAL SQ SCH ×2 (09:36→20:09)
[2022-04-23] MEDS: traMADol HCL 50 MG TABLET PO SCH ×2 (13:39→20:08)
--- NOTE | 2022-04-23 18:10 | Hospitalist Progress Note ---
Date of Service April 23, 2022 Assessment & Plan (1) Right humeral fracture: Plan: After mechanical fall without major concern for underlying event. Also with radial fracture. Immobilized in the ER. - Dr. Morrow consulted in the ER - have reached out to see if he would like a consult or if there is nothing else to do. - Gentle pain control with standing Tylenol and tramadol PRN; want to be very careful as all opioids are relatively contraindicated in myasthenia gravis - PT/OT - Placement 04/20 Plan is to go the conservative route. Patient will be awaiting placement to rehab 04/21 Pain appears controlled. will monitor. 04/22 Patient will be going to rehab likely tomorrow. having diarrhea, will check kub 04/23 DIARRHEA HAS IMPROVED. Patient however is having nausea,likely from tramadol. will decrease dose. (2) Myasthenia gravis, AChR antibody positive: Plan: Follows with a [place] neurologist. Per family, she was seen recently with blood drawn and some form of IV therapy. - Continue home pyridostigmine - Have reached out to residents to see if we can get updated record. (3) Diabetes: Plan: A1c was 6.0%. Not on home meds. - Sliding scale insulin (4) Nonischemic cardiomyopathy: Plan: [place]s [place] [facility] Idiopathic cardiomyopathy (status post ICD, EF improved from 25% to 60%) and normal LHC in 2003. S/p ICD. Had recently stopped lisinopril and statin due to orthostatic hypotension and age respectively. - No indication of volume overload. - Monitor (5) Paroxysmal atrial fibrillation: Plan: Presently in sinus rhythm with ventricularly paced rhythm. Not on anticoagulatio n. - No inpatient needs (6) Hypothyroidism: Plan: TSH was 1.5 in 02/2022. No signs/symptoms of hypo-/hyperthyroidism. - Continue home Synthroid 137 mcg (7) CKD (chronic kidney disease) stage 3, GFR 30-59 ml/min: Plan: Baseline Cr ~0.8 - 1.0. Presently at baseline, with CrCl ~33. - Renally dose medications. (8) DVT prophylaxis: Plan: Heparin 5,000 units SQ Q12h (9) Diarrhea: Plan: Patient having diarrhea. Checked for c diff, this was negative. will monitor. will check kub for obstructive pattern for possible overflow Admission and Anticipated Discharge Date Admission Date: April 19, 2022 Subjective 87 yo female reports feeling unwell. She has been complaining of nausea. Review of Systems Review of Systems: All systems reviewed & are unremarkable except as noted in HPI & below Physical Exam Physical Exam: Constitutional: WD/WN, vitals as above Eyes: EOM intact bilaterally; no conjunctival abnormality ENMT: external ear and nose normal, oropharynx normal Neck: trachea midline, no thyromegaly normal visual inspection Respiratory: normal respiratory effort, lungs clear to auscultation no respiratory distress Cardiovascular: RRR, no murmur, no edema Gastrointestinal (Abdomen): Inspection/Auscultation: abdomen normal to inspection; abdomen not distended Musculoskeletal: Right arm in sling. Skin: no rashes, warm and dry Neurologic: moves all extremities and awake Psychiatric: Orientation: alert, oriented to person and cooperative Results & Data Results & Data ([facility]) Vital Signs (Past 12 Hours) Vital Signs Temp Pulse Resp BP Pulse Ox O2 Del Method 04/23/22 16:20 36.6 C 67 18 157/83 H 95 Room Air 04/23/22 11:46 Room Air 04/23/22 06:49 36.5 C 66 18 173/80 H 95 Room Air PG Care Time/CCT Total # of Minutes Spent Total Time Spent with Patient: Total time spent is greater than 50% in coordination of care (as documented) at patient's floor/unit and/or counseling patient: Coding Level of Care Code 10697 Subseq Hosp Care Lvl 2 Diagnoses Right humeral fracture S42.301A Myasthenia gravis, AChR antibody positive G70.00 Diabetes E11.9 Nonischemic cardiomyopathy I42.8 Paroxysmal atrial fibrillation I48.0 Hypothyroidism E03.9 CKD (chronic kidney disease) stage 3, GFR 30-59 ml/min N18.3 DVT prophylaxis Z29.9 Diarrhea R19.7 Diarrhea type: unspecified type (1) Diarrhea Diarrhea type: unspecified type Qualified Code(s): R19.7 - Diarrhea, unspecified
[2022-04-23] MEDS: OXYBUTYNIN CHLORIDE XL 5 MG TABCR PO SCH (20:07)
[2022-04-23] MEDS: GABAPENTIN 300 MG CAP PO SCH (20:08)
[2022-04-24] MEDS: PYRIDOSTIGMINE BROMIDE 60 MG TAB PO SCH ×2 (05:30→11:20)
[2022-04-24] MEDS: LEVOTHYROXINE SODIUM 137 MCG TABLET PO SCH (05:30)
[2022-04-24] MEDS: PANTOprazole 40 MG TAB PO SCH (08:21)
[2022-04-24] MEDS: FAMOTIDINE 10 MG TABLET PO SCH (08:21)
[2022-04-24] MEDS: DOCUSATE SODIUM/SENNA 50/8.6MG TAB PO SCH (08:25)
[2022-04-24] MEDS: HEPARIN SOD 5,000 UNIT/0.5 ML VIAL SQ SCH (08:25)
[2022-04-24] MEDS: ACETAMINOPHEN 500 MG TAB PO SCH (08:25)
[2022-04-24] MEDS: INSULIN ASPART PER UNIT SC SCH (08:25)
[2022-04-24] MEDS: traMADol HCL 50 MG TABLET PO SCH (08:25)
--- NOTE | 2022-04-24 09:50 | Orthopedic Progress Note ---
Date of Service April 24, 2022 Assessment & Plan (1) Right humeral fracture: Plan: Patient was seen in her room. She was educated regard to today's findings. Continue using the splint. Follow-up in the office for reexamination May 10 at 10:30. Continue with ice and elevation of the arm. She was encouraged to continue with her finger pumps to assist with edema control. Possibility of rotator cuff injury to her shoulder was discussed with her. We will assess this further on outpatient basis. She may benefit from physical therapy. Patient is adamant she does not want any surgeries if the cuff were torn. She was reassured that we can make some improvements with physical therapy to keep her functional. We will continue to follow while she is admitted. Admission and Anticipated Discharge Date Admission Date: April 19, 2022 Subjective Patient is seen in her room this morning. States she is having some pain in the right arm. She continues to do her finger problems. She also is noticing some pain in the left anterior shoulder. Present today. No other complaints. She denies any numbness or tingling. Physical Exam Physical Exam: General: Well-developed, well-nourished, elderly female, in no acute distress. Laying in bed. Conversive. Skin: Evaluation today reveals the posterior splint to be in place. Patient does have some edema in her dorsal hand. Dry with fair turgor. Musculoskeletal: Intact motor function of her digits. Splint is in place. Elbow motion was not attempted. She does have supple motion of her left shoulder. There are some discomfort with palpation over the proximal biceps tendon and deltoid. She appears to have intact function of her rotator cuff with resisted motion. This does generate some pain. She also describes some soreness with palpation over the right shoulder. Neurologic: Gross sensation is intact across the upper extremities by soft touch. Capillary refill is equal for each of the digits. Peripheral pulses are 2+. Results & Data ([facility]) Vital Signs (Past 12 Hours) Vital Signs Temp Pulse Resp BP Pulse Ox O2 Del Method 04/24/22 06:27 36.4 C L 67 18 154/74 H 94 Room Air 04/23/22 22:55 36.6 C 76 20 146/80 H 92 Room Air
[2022-04-24] MEDS ORDERED: PYRIDOSTIGMINE BROMIDE 60 MG TAB PO ONE (11:16)
--- NOTE | 2022-04-24 12:10 | Discharge Summary ---
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 Per patient, it was a mechanical fall as she was trying to transfer from a chair to her walker. No prodromal symptoms that would indicate arrhythmia or other concerning issue. She fell onto her right arm with immediate pain. She is not sure if she struck her head or not. Discharge Exam Constitutional: WD/WN, vitals as above Eyes: EOM intact bilaterally; no conjunctival abnormality ENMT: external ear and nose normal, oropharynx normal Neck: trachea midline, no thyromegaly normal visual inspection Respiratory: normal respiratory effort, lungs clear to auscultation no respiratory distress Cardiovascular: RRR, no murmur, no edema Gastrointestinal (Abdomen): Inspection/Auscultation: abdomen normal to inspection; abdomen not distended Musculoskeletal: Right arm in sling. Skin: no rashes, warm and dry Neurologic: moves all extremities and awake Psychiatric: Orientation: alert, oriented to person and cooperative Discharge Data Allergies Allergy/AdvReac Type Severity Reaction Status Date / Time celecoxib Allergy Severe SX OF Verified 04/18/22 11:39 STROKE, FACIAL NUMBNESS, UNABLE TO SPEAK fesoterodine [From Toviaz] Allergy Unknown Unknown Verified 04/18/22 11:39 solifenacin [From Vesicare] Allergy Unknown Unknown Verified 04/18/22 11:39 morphine AdvReac Intermediate Confusion Verified 04/18/22 11:39 ciprofloxacin AdvReac Mild UPSET Verified 04/18/22 11:39 STOMACH metronidazole AdvReac Mild N/V Verified 04/18/22 11:39 Consultations 04/18/22 14:27 ED Decision to Admit Stat 04/18/22 17:17 Consult Orthopedic Surgery Routine Ordered Studies 04/18/22 10:29 CT head/brain wo con Stat Hospital Course (1) Right humeral fracture: Age-related osteoporotic fracture of the right humerus and radius. 87-year-old female with a history of osteoporosis who suffered a fall at home while transferring from her walker to her chair. Imaging confirms a right humeral fracture as well as a right radial fracture. After mechanical fall without major concern for underlying event. Also with radial fracture. Immobilized in the ER. - Dr. Morrow consulted in the ER - have reached out to see if he would like a consult or if there is nothing else to do. - Gentle pain control with standing Tylenol and tramadol PRN; want to be very careful as all opioids are relatively contraindicated in myasthenia gravis - PT/OT - Placement 04/20 Plan is to go the conservative route. Patient will be awaiting placement to rehab 04/21 Pain appears controlled. will monitor. 04/22 Patient will be going to rehab likely tomorrow. having diarrhea, will check kub 04/23 DIARRHEA HAS IMPROVED. Patient however is having nausea,likely from tramadol. will decrease dose. (2) Myasthenia gravis, AChR antibody positive: Follows with a [place] neurologist. Per family, she was seen recently with blood drawn and some form of IV therapy. - Continue home pyridostigmine - Have reached out to residents to see if we can get updated record. (3) Diabetes: A1c was 6.0%. Not on home meds. - Sliding scale insulin (4) Nonischemic cardiomyopathy: Follows with [facility]. Idiopathic cardiomyopathy (status post ICD, EF improved from 25% to 60%) and normal LHC in 2003. S/p ICD. Had recently stopped lisinopril and statin due to orthostatic hypotension and age respectively. - No indication of volume overload. - Monitor (5) Paroxysmal atrial fibrillation: Presently in sinus rhythm with ventricularly paced rhythm. Not on anticoagulation. - No inpatient needs (6) Hypothyroidism: TSH was 1.5 in 02/2022. No signs/symptoms of hypo-/hyperthyroidism. - Continue home Synthroid 137 mcg (7) CKD (chronic kidney disease) stage 3, GFR 30-59 ml/min: Baseline Cr ~0.8 - 1.0. Presently at baseline, with CrCl ~33. - Renally dose medications. (8) DVT prophylaxis: Heparin 5,000 units SQ Q12h (9) Diarrhea: Patient having diarrhea. Checked for c diff, this was negative. will monitor. will check kub for obstructive pattern for possible overflow Discharge Plan Discharge Items Patient Disposition: Transfer Alf Fac Reason For Visit: FALL, RIGHT HUMERAL AND RADIAL FRACTURES Discharge Diagnosis: You have been hospitalized for an acute medical problem. During your stay at [facility], we have made an effort to correct the problem that brought you to the hospital while keeping you as comfortable as possible. Medications were used to bring your condition under control and your discharge instructions will include directions for any medications you should take after leaving the hospital. Please make sure you see your Primary Care Provider as part of your follow up plan. Activity: Resume your previous activity Non-emergency contact: Primary Care Provider Call non-emergency contact if: you have any medication questions Follow-up/Referrals: Adriano Castellanos MD [Primary Care Provider] - Fabian Morrow MD [Physician] - 05/10/22 10:30 am Diet: Regular and Carb Consistent or DM2 Diet Texture: Easy to Chew Addtl Attending Provider Instructions: You have been hospitalized for an acute medical problem. During your stay at [facility], we have made an effort to correct the problem that brought you to the hospital while keeping you as comfortable as possible. Medications were used to bring your condition under control and your discharge instructions will include directions for any medications you should take after leaving the hospital. Please make sure you see your Primary Care Provider as part of your follow up plan. Addtl Floral Arranger Provider Instructions: Non weight bearing right upper extremity Keep splint on right arm at times. No use of right arm. Sling right arm as needed for comfort. Ice to right arm/shoulder as needed for pain/swelling. Elevate right arm as needed for pain/swelling. Allowed for range of motion to fingers right hand. Follow up with Dr. Morrow as scheduled on May 10 at 10:30. Pending Studies at Discharge: Yes Stand-Alone Forms: My [facility] Skilled Items Patient informed of condition?: Yes DNR: No Discharge Level of Care: Skilled Communicable Disease: No Discharge Prognosis: Stable Lines: None Urinary Catheter: No Medications and DC Order Prescriptions: New tramadol 50 mg Tablet 25 mg PO TID PRN (Reason: severe pain (scale score 7-10)) Qty: 20 0RF Continued cyanocobalamin (vitamin B-12) [Vitamin B-12] 1,000 mcg tablet 500 mcg PO QAM pantoprazole 40 mg tablet,delayed release (DR/EC) 40 mg PO QAM Qty: 30 11RF oxybutynin chloride 5 mg tablet extended release 24hr 5 mg PO HS Qty: 30 11RF gabapentin 300 mg capsule 600 mg PO HS Qty: 60 5RF (DME) OneTouch Ultra Test Strip See Rx Instructions .Route Qty: 300 3RF Rx Instructions: TEST THREE TIMES DAILY. DX: E11.9 alendronate 70 mg tablet 70 mg PO WK Qty: 12 0RF Rx Instructions: 70 mg PO once weekly; Mon ascorbic acid (vitamin C) 500 mg tablet 500 mg PO QAM Centrum Silver Women 8 mg iron-400 mcg-300 mcg tablet 1 tab PO QAM sennosides-docusate sodium [Senokot-S] 8.6-50 mg tablet 1 tab PO BID Qty: 60 6RF cholecalciferol (vitamin D3) [Vitamin D3] 2,000 unit Tablet 2,000 unit PO QAM vitamin A 2,400 mcg capsule 2,400 mcg PO QAM acetaminophen 500 mg tablet 1,000 mg PO TID PRN (Reason: Pain) glucosamine-chondroitin [Osteo Bi-Flex] 250-200 mg Tablet 1 tab PO QAM diphenhydramine-acetaminophen [Tylenol PM Extra Strength] 25-500 mg Tablet 2 tab PO HS famotidine 10 mg Tablet 10 mg PO QAM levothyroxine 137 mcg tablet 137 mcg PO QAM ondansetron 4 mg tablet,disintegrating 4 mg PO Q6H PRN (Reason: nausea and vomiting) Qty: 14 0RF diphenoxylate-atropine 2.5-0.025 mg Tablet 1 tab PO BID PRN (Reason: diarrhea) Qty: 7 0RF polyethylene glycol 3350 [Miralax] 17 gram Powder In Packet 17 g PO BID PRN (Reason: constipation) Qty: 14 0RF Changed pyridostigmine bromide [Mestinon] 60 mg tablet See Rx Instructions .ROUTE .COMPLEX Qty: 75 0RF Rx Instructions: Takes 60 mg in the morning, and in lunch then 30 mg before dinner. Discharge Orders: Discharge Order (Routine); Ordered 04/24/22 Ordered By: Chente Ruyb Admission Data Admit Date/Time: 04/19/22 16:31 Attending Provider: Chente Ruby Admit Provider: Frank Park Primary Care Provider: Adriano Castellanos Other Providers: Frank Park ; Fabian Morrow ; Cecilio Sutton Other Interventions: Discharge Summary Assessment (RN) Last Done: 04/24/22 10:11 Coding Diagnoses Right humeral fracture S42.301A Myasthenia gravis, AChR antibody positive G70.00 Diabetes E11.9 Nonischemic cardiomyopathy I42.8 Paroxysmal atrial fibrillation I48.0 Hypothyroidism E03.9 CKD (chronic kidney disease) stage 3, GFR 30-59 ml/min N18.3 DVT prophylaxis Z29.9 Diarrhea R19.7 Diarrhea type: unspecified type
== END 2022-04-24 12:12 ==
LOC: EDSEX → EDINP 10:11 → ED 10:11 → SUATTDRO 14:32 → EDINP 16:22 → 2N 21:31